=== PATIENT | male | born 1950 | race Two or more races ===

== ENCOUNTER 2016-09-04 07:35 | Day surgery (SDC) | payer BC ==
[2016-09-04] VITALS (13 sets, daily range): BP systolic 111–149; BP diastolic 49–74; PULSE 47–78; RESP 16–24; Ht 175.3 cm; Wt 71.3 kg
[~2016-09-04] VITALS: Ht 175.3 cm; Wt 71.3 kg
[~2016-09-04 07:35] MED LIST: ACETAMINOPHEN 1000 MG/100 ML IVPB ONE; CEFAZOLIN 1 GM INJ ONE; CEFAZOLIN 1 GM/50 ML (PMX) 50 ML IVPB SCH
--- NOTE | 2016-09-04 09:19 | RADRPT ---
PROCEDURE: XR Chest. CLINICAL INDICATION: preop TECHNIQUE: Single frontal view of the chest was obtained COMPARISON: None FINDINGS: The heart and mediastinum are within normal limits. The lungs are clear. There is no pleural effusion or pneumothorax. RPTAT: AA IMPRESSION: No acute disease. .James Ortiz MD, Date Time Electronically viewed and signed by .James Ortiz MD, on 09/04/2016 09:19 .S/
[2016-09-04] MEDS ORDERED: LIDOCAINE 2% (SDV) 5 ML INJ ONE (09:53)
[2016-09-04] MEDS ORDERED: ROCURONIUM 50 MG INJ ONE (09:53)
[2016-09-04] MEDS ORDERED: PROPOFOL 20 ML ONE (09:53)
[2016-09-04] MEDS ORDERED: hydrALAzine 20 MG INJ IV PRN (10:00)
[2016-09-04] MEDS ORDERED: LABETALOL HCL 20MG INJ IV PRN (10:00)
[2016-09-04] MEDS ORDERED: HYDROmorphONE (0.2 MG/ML) 10ML SYG IV PRN ×3 (10:00)
[2016-09-04] MEDS ORDERED: OXYCODONE/ACETAMINOPHEN (5/325) TAB PO PRN (10:00)
[2016-09-04] MEDS ORDERED: MEPERIDINE 25 MG INJ IV PRN (10:00)
[2016-09-04] MEDS ORDERED: ONDANSETRON 4 MG INJ IV PRN (10:00)
[2016-09-04] MEDS ORDERED: EPHEDrine SULFATE 50 MG/5 ML SYG IV PRN (10:00)
[2016-09-04] MEDS ORDERED: FENTAnyl 50 MCG/ML VIAL IV PRN ×3 (10:00)
--- NOTE | 2016-09-04 11:03 | HP ---
DATE OF ADMISSION: 09/04/2016 CHIEF COMPLAINT: Gross hematuria. HISTORY OF PRESENT ILLNESS: This is a 66-year-old male with history of bladder cancer. He was diag nosed in 2012 in [place]. The patient underwent transurethral resection of bladder tumor, followed by chemotherapy and radiation to his bladder. He apparently had some pulmonary nodules; however, the n odules have remained stable. Patient has been off of chemotherapy for many years. Initial diagnosi s of bladder cancer was in 2005. At that time, he had high grade bladder cancer. He has had multip le prior transurethral resection of bladder tumors. In 2012, the patient had undergone another TURB T and chemoradiation. The patient also has history of urethral stricture or prostate fossa stricture. He has had prior tr eatments for this problem. However, he continues to have slow stream, intermittency, frequency. Th e patient also has urgency incontinence. Patient reports he has had intermittent bouts of gross hematuria. Although his hematuria was worse about 3 months ago, he does have continued intermittent hematuria and passage of clots. He reports overall, this has improved over time. PAST MEDICAL HISTORY: No hypertension, no diabetes. PAST SURGICAL HISTORY: TURBT (multiple), mouth surgery. ALLERGIES: NO KNOWN DRUG ALLERGIES. SOCIAL HISTORY: No smoke. Occasional alcohol. Patient stopped smoking in 2004. FAMILY HISTORY: Brother with pancreatic cancer. REVIEW OF SYSTEMS: CONSTITUTIONAL: No fevers, no chills, no change in appetite, weight gain or weight loss. HEENT: No loss of hearing, no ear/sinus pain. No rhinorrhea, nosebleed or sore throat. CARDIOVASCULAR: No chest pain, no shortness of breath or heart palpitations. RESPIRATORY: No cough. No phlegm production, wheezing or hemoptysis. GASTROINTESTINAL: No abdominal pain, no cramping. No nausea. MUSCULOSKELETAL: No bone pain. No change in strength or joint pain. INTEGUMENTARY: No skin rash or lesions. NEUROLOGICAL: No dizziness, no headaches, no numbness. PSYCHIATRIC: The patient feels anxious over his situation. HEMATOLOGIC/LYMPHATIC: No known bleeding problems other than his hematuria. No lymph node enlargem ent. PHYSICAL EXAMINATION: CONSTITUTIONAL: The patient appears to be in no acute distress. GASTROINTESTINAL: Abdomen is soft, normal bowel sounds, nondistended, nontender. Hernia examinatio n, none noted. Liver and spleen normal. GENITOURINARY: Scrotum no lesions, no edema, no erythema, mass, rashes, or cysts. Epididymis symme tric, normal texture, nontender. Urethral meatus normal in size and location. Testes descended odalys aterally. NECK: Normal appearing, symmetric, normal tracheal position. Thyroid no enlargement. EXTREMITIES: No edema. ASSESSMENT: 1. Bladder cancer, status post multiple previous resections. 2. Gross hematuria. 3. The patient had undergone a previous cystoscopy in my office but due to increased debris and hemal t within the bladder, it was not possible to visualize the mucosa. He was found to have a fibrotic prostate mucosa. PLAN: Cystoscopy, evacuation of blood clots and transurethral resection of bladder tumor and possib le bladder biopsy. This procedure has been explained to the patient in detail. Risks and benefits have been discussed. His other options have also been discussed. He understands the risks include, but are not limited to infection, bleeding, damage to adjacent structures, heart problems, lung pro blems, possibility of need for further surgery, DVT, PE, TX, CVA, nonresolution of symptoms, recurre nce of symptoms, need for other treatments, need for other surgeries, recurrence of hematuria, inabi lity to remove all the tumor in 1 setting, injury to the ureters, worsening of urethral stricture, b ladder perforation, worsening incontinence. All of his questions have been answered, no guarantees given. The patient would like to proceed. Dictated By: ABRIL NATH MD, SR/NTS Conf#: [id number] DID#: [id number]
--- NOTE | 2016-09-04 11:20 | OPR ---
Date/Time of Note Date/Time of Note DATE: 09/04/16 TIME: 11:18 Operative Report Procedure Date: Sep 04, 2016 Preoperative Diagnosis Hx bladder ca hematuria Postoperative Diagnosis neoplasm uncertain behavior bladder hx bladder ca urethral stricture BN contracture bladder fibrosis radiation cystitis Operation Performed TURBT Surgeon: ABRIL NATH Anesthesia: general Estimated Blood Loss: minimal Specimens bladder tumor, bladder biopsy Tubes/Drains 18 fr murphy Complications: None Pt Condition Post Procedure: stable Disposition: PACU ABRIL NATH Sep 04, 2016 11:20
--- NOTE | 2016-09-04 11:23 | PDOCDIS ---
Discharge Instructions CONDITION Patient Condition: Good HOME CARE INSTRUCTIONS: Diet Instructions: Regular ACTIVITY: Activity Restrictions: Slowly Increase Activity Avoid heavy lifting Bathing Restrictions: Shower FOLLOW UP/APPOINTMENTS Appointments wednesday09/07/16 Dr Bourgeois's office for catheter removal OTHER ORDERS: Other Orders: keep murphy catheter to gravity SCHOOL/WORK RELEASE May return to School/Work on: Sep 09, 2016 ABRIL BOURGEOIS Sep 04, 2016 11:23
--- NOTE | 2016-09-04 11:57 | OPR ---
DATE OF OPERATION: 09/04/2016 PREOPERATIVE DIAGNOSIS: Bladder cancer. POSTOPERATIVE DIAGNOSES: 1. History of bladder cancer. 2. Neoplasm of uncertain behavior of bladder. 3. Hematuria. 4. Urethral stricture. 5. Prostate stricture. 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 PROCEDURE PERFORMED: 1. Cystoscopy, urethral dilation. 2. Transurethral resection of bladder tumor (cold cup resection). SURGEON: Abril Bourgeois MD INDICATIONS FOR PROCEDURE: This patient has a history of bladder cancer. He has undergone multiple transurethral resections of bladder tumors. He has also undergone radiation and chemotherapy. He is known to have urethral stricture. He has had intermittent gross hematuria. He underwent an atte mpt at a surveillance cystoscopy in my office; however, due to increased debris and clots in the claudia dder it was not possible to visualize the bladder. He is now scheduled to undergo the procedure und er anesthesia. Risks and benefits have been discussed with the patient. All of his questions have been answered. He would like to proceed. FINDINGS: The entire length of urethra was fibrotic, narrowed and scarred. Prostate fossa was also fibrotic and scarred. Prostate was fixed against the pelvis. It was not possible to place a scope larger than 22-Zimbabwean. The 22-Zimbabwean scope was placed with increased resistance. Within the bladd er, there was an area of papillary fronds along the right trigone extending to the left trigone. Mu ltiple areas of vascular changes within the bladder consistent with radiation changes were seen. No distinct patches of erythema were seen. The ureteral orifices were orthotopic. Blood clots within the bladder were also identified which were irrigated. The papillary fronds were removed using the cold cup biopsy forceps. PROCEDURE IN DETAIL: The patient was brought to the operating room, underwent general laryngeal mas k anesthesia. He was placed in a semi-lithotomy position. Abdomen, perineum and genitalia were pre pped and draped in usual sterile fashion. Initially, an attempt was made to place a 26-Zimbabwean resec toscope sheath under the visualizing obturator; however, only the distal portion of the urethra acc ommodated the scope. This was then removed. The urethra was calibrated to 22-Zimbabwean using van Bure n sounds, however, it was very evident that the sounds would not pass beyond the prostatic fossa int o the bladder. The sounds were not forced into the bladder as this would have caused increased blee ding and injury to the prostate, possibly causing a false passage. A 22-Zimbabwean cystoscope was then placed under direct vision. The entire length of the urethra was fi brosed, narrowed, thin and small in caliber. The scope was advanced into the prostatic fossa. The fossa was fixed against the pelvis. Prostate was not mobile. The prostatic fossa was very narrow. The scope was gently advanced through this narrowed prostatic fossa. The bladder neck was also yoanna row and fixed against the pelvis. The scope was then brought into the bladder; however, the scope e ssentially became fixed in place due to the severe rigidity of the bladder floor, the bladder neck a nd the prostate fossa. It was deemed that it would not be possible to place even a 24-Zimbabwean resect oscope. Therefore, the procedure was done using the cystoscope. Cystoscopy was performed. Bladder was carefully examined. Papillary fronds were identified along t he trigone of the bladder. These appeared to be superficial and were not on a single pedicle. The ureteral orifices were orthotopic. The entire bladder mucosa was fibrosed. There were multiple tel angiectatic changes to the vascular mucosa. The rigid biopsy forceps was then used to resect the papillary fronds along the trigone of the bladd er, care was taken not to injure the ureteral orifices. These tissues were sent to pathology. The Bugbee electrode was used to obtain hemostasis from the area of resection. Deeper into the bladder along the right posterior bladder wall, a patch of erythema along the telangiectatic vessels was janiya ntified. This was also removed using the rigid biopsy forceps. This area was also cauterized using the Bugbee electrode. Bladder was carefully examined. No other tumors were identified. At the ti me of placement of the rigid scope, some of the bladder neck tissue had scraped off and had drained into the drainage area. These were also collected and sent to pathology as bladder neck tissue. Th e area of the bladder neck was also cauterized to obtain hemostasis. Blood clots had also been irri gated out of the bladder. At this point, the cystoscope was brought through the scarred prostatic fossa and out of the urethra , taking care not to injure the urethra. Next, an 18-Zimbabwean catheter was placed into the bladder. Bladder was hand irrigated. It irrigated easily indicating that the catheter had entered the bladde r. Balloon was inflated to 10 mL. Catheter was placed down to gravity. The catheter was reirrigat ed. The irrigant was clear to light pink. The patient was placed back in a supine position. He wa s awakened, extubated, and taken to recovery room. POSTOPERATIVE CONDITION: Stable. COMPLICATIONS: None. BLOOD LOSS: Minimal. BLOOD ADMINISTERED: None. SPECIMENS SENT TO LAB: Bladder tumor resection from trigone, posterior wall bladder biopsy, bladder neck tissue. Dictated By: ABRIL BOURGEOIS MD SR/NTS Conf#: [id number] DID#: [id number]
--- NOTE | 2016-09-04 12:50 | DS ---
DATE OF ADMISSION: 09/04/2016 DATE OF DISCHARGE: 09/04/2016 ADMITTING DIAGNOSIS: Bladder cancer. DISCHARGE DIAGNOSES: 1. History of bladder cancer. 2. Neoplasm of uncertain behavior of bladder. 3. Urethral stricture, 4. Prostate fossa stricture. 5. Bladder neck contracture. 6. Radiation cystitis. 7. Bladder fibrosis. HOSPITAL COURSE: The patient admitted to the hospital and underwent transurethral resection of blad [place] tumor. He tolerated procedure well. He was transferred to recovery room. Once patient was sta ble, tolerating his diet, remaining afebrile and pain was well controlled, he was discharged home. DISCHARGE INSTRUCTIONS: Activity as tolerated. No heavy lifting. Patient may shower. Follow up i n 3 days for catheter removal. MEDICATIONS: 1. [place]. 2. Colace. 3. Cipro. Dictated By: ABRIL NATH MD SR/NTS Conf#: [id number] DID#: [id number]
--- NOTE | 2016-09-04 13:09 | OPPN ---
Date/Time of Note Date/Time of Note DATE: 09/04/16 TIME: 13:09 Post-Anesthesia Notes Post-Anesthesia Note Activity: WNL Respiratory function: WNL Cardiovascular function: WNL Mental status: Baseline Pain reasonably controlled: Yes Hydration appropriate: Yes Nausea/Vomiting absent: Yes MINNA MARINELLI Sep 04, 2016 13:09
== END 2016-09-04 13:25 | disposition home or self-care (01) ==
LOC: SDS 07:35
PROVIDERS: ATTEND Surgery Surgical Oncology
DX: C67.4 Malignant neoplasm of posterior wall of bladder (principal); N13.5 Crossing vessel and stricture of ureter without hydronephrosis; N42.89 Other specified disorders of prostate
CPT/HCPCS: 52235; 71010; 88305; J0131; J0690; J3010; Z7512; Z7610

== ENCOUNTER 2016-12-23 05:42 | Inpatient (IN) | END 2017-03-15 17:15 | disposition home health service (06) | DRG 653 | DX: C67.9 Malignant neoplasm of bladder, unspecified (principal); K63.1 Perforation of intestine (nontraumatic); N17.0 Acute kidney failure with tubular necrosis; K65.1 Peritoneal abscess; E43 Unspecified severe protein-calorie malnutrition; B37.7 Candidal sepsis; N39.0 Urinary tract infection, site not specified; N30.40 Irradiation cystitis without hematuria; E87.1 Hypo-osmolality and hyponatremia; K56.0 Paralytic ileus; B37.49 Other urogenital candidiasis; R64 Cachexia; T81.4XXA Infection following a procedure, initial encounter; D62 Acute posthemorrhagic anemia; R15.9 Full incontinence of feces; R32 Unspecified urinary incontinence; N35.8 Other urethral stricture; E83.51 Hypocalcemia; K60.4 Rectal fistula; K66.0 Peritoneal adhesions (postprocedural) (postinfection); K62.7 Radiation proctitis; E87.5 Hyperkalemia; B96.20 Unspecified Escherichia coli [E. coli] as the cause of diseases classified elsewhere; D63.0 Anemia in neoplastic disease; G89.4 Chronic pain syndrome; Y83.8 Other surgical procedures as the cause of abnormal reaction of the patient, or of later complication, without mention of misadventure at the time of the procedure; Y84.2 Radiological procedure and radiotherapy as the cause of abnormal reaction of the patient, or of later complication, without mention of misadventure at the time of the procedure; Y92.238 Other place in hospital as the place of occurrence of the external cause; Y92.89 Other specified places as the place of occurrence of the external cause; Z68.21 Body mass index [BMI] 21.0-21.9, adult ==

== ENCOUNTER 2017-03-20 20:57 | Emergency (ER) | payer BC ==
[~2017-03-20] VITALS: Ht 167.6 cm; Wt 55.0 kg
[~2017-03-20 20:57] MED LIST changes: -ACETAMINOPHEN 1000 MG/100 ML IVPB ONE; -CEFAZOLIN 1 GM INJ ONE; -CEFAZOLIN 1 GM/50 ML (PMX) 50 ML IVPB SCH; +DOCU-144 PO; +OXYC-279 PO
[2017-03-20 21:04] VITALS: Ht 167.6 cm; Wt 55.0 kg
[2017-03-20 22:00] VITALS: TEMP 98.5
[2017-03-20] MEDS ORDERED: FAMOTIDINE 20 MG INJ IV STA (22:18)
[2017-03-20] MEDS ORDERED: ONDANSETRON 4 MG INJ IV STA (22:18)
[2017-03-20] MEDS ORDERED: SOD CHLORIDE 0.9% 1,000 ML IV STA (22:18)
[2017-03-20 23:45] LABS: BASOPHILS % 0.2 % (0.0-2.0); EOSINOPHILS % 0.3 % (0.0-7.0); HEMATOCRIT 32.8 % (42.0-52.0); HEMOGLOBIN 10.4 g/dl (14.0-18.0); LYMPHOCYTES # 1.1 10^3/ul (0.8-2.9); LYMPHOCYTES % 11.1 % (15.0-51.0); MEAN CORPUSCULAR HEMOGLOBIN 28.4 pg (29.0-33.0); MEAN CORPUSCULAR HGB CONC 31.7 g/dl (32.0-37.0); MEAN CORPUSCULAR VOLUME 89.6 fl (82.0-101.0); MEAN PLATELET VOLUME 9.7 fl (7.4-10.4); MONOCYTE # 0.8 10^3/ul (0.3-0.9); MONOCYTES % 7.6 % (0.0-11.0); NEUTROPHILS % 80.4 % (39.0-77.0); PLATELET COUNT 259 10^3/UL (140-415); RED BLOOD COUNT 3.66 10^6/ul (4.70-6.10)
[2017-03-21 00:10] LABS: ALBUMIN 3.8 g/dl (3.3-4.9); ALBUMIN/GLOBULIN RATIO 0.8; CALCIUM 9.6 mg/dl (8.4-10.2); CREATININE 1.34 mg/dl (0.61-1.24); POTASSIUM 4.3 mmol/L (3.5-5.1); TOTAL PROTEIN 8.5 g/dl (6.1-8.1)
--- NOTE | 2017-03-21 00:30 | ERD ---
ER Documentation Chief Complaint Date/Time DATE: 03/21/17 TIME: 00:27 Chief Complaint just dcd 03/15/17/ c/o vomiting, hx bladder CA pt w/ colostomy, urostomy HPI This is a 66-year-old male who presents to the emergency room for evaluation of a colostomy bag change, and mild nausea. The patient does have a history of bladder cancer, colon cancer with colon resection and ileostomy and urethrostomy in place. According to his daughter the home health nurse was not able to give colostomy bags. She states that he was nauseous at home and states that he has recently been discharged from the hospital less than a week ago. The patient denies any active pain at this time and states he wants his bags changed. ROS All systems reviewed and are negative except as per history of present illness. Medications Home Meds Active Scripts Docusate Sodium* (Colace*) 100 Mg Capsule, 100 MG PO BID, #30 CAP Prov:BRENDA PETTIT [employer] 03/12/17 Oxycodone HCl/Acetaminophen (Percocet 5-325 mg Tablet) 1 Each Tablet, 1 EACH PO Q4H for PAIN, #30 TAB Prov:BRENDA PETTIT [employer] 03/12/17 Allergies Allergies: Coded Allergies: No Known Allergies (Unverified Allergy, Unknown, 09/04/16) PMhx/Soc History of Surgery: Yes (urostomy, ileostomy, colostomy 2017) Anesthesia Reaction: No Hx Neurological Disorder: No Hx Respiratory Disorders: No Hx Cardiac Disorders: No Hx Psychiatric Problems: No Hx Miscellaneous Medical Probl: Yes (pls see EMR) Hx Alcohol Use: Yes (RARE) Hx Substance Use: No Hx Tobacco Use: No (40 YEARS AGO) Smoking Status: Former smoker Physical Exam Vitals Vital Signs Date Time Temp Pulse Resp B/P Pulse Ox O2 Delivery O2 Flow Rate FiO2 03/20/17 21:04 98.8 101 20 110/64 99 Physical Exam INITIAL VITAL SIGNS: Reviewed by me GENERAL: The patient is cachectic appearing, no acute distress HEENT: Dry mucous membranes, pupils equal, round, and reactive to light. EOMI. There is no scleral icterus. NECK: C-spine is soft and supple, there is no meningismus. There is no cervical lymphadenopathy. LUNGS: Clear to auscultation bilaterally. There are no rales, wheezes or rhonchi. HEART: Regular rate and rhythm, no murmurs, clicks, rubs or gallops. ABDOMEN: Ileostomy and ureter urostomy tubes in place, adequate output soft, non -tender, non-distended. There are bowel sounds in all four quadrants. No rebound or guarding. EXTREMITIES: There is no peripheral cyanosis or edema. No focal swelling or erythema. NEUROLOGICAL: The patient moves all four extremities with 5/5 strength. Cranial nerves II - XII are intact. Normal gait. Alert and oriented SKIN: There is no apparent rash or petechiae. HEME/LYMPHATIC: There is no evidence of excessive bruising or lymphedema. PSYCHIATRIC: The patient does not appear anxious or depressed. Result Diagram: 03/20/17231003/20/172310 Results 24 hrs Laboratory Tests Test 03/20/17 23:11 White Blood Count 10.010^3/ul Red Blood Count 3.6610^6/ul Hemoglobin 10.4g/dl Hematocrit 32.8% Mean Corpuscular Volume 89.6fl Mean Corpuscular Hemoglobin 28.4pg Mean Corpuscular Hemoglobin Concent 31.7g/dl Red Cell Distribution Width 16.0% Platelet Count 73941^3/UL Mean Platelet Volume 9.7fl Neutrophils % 80.4% Lymphocytes % 11.1% Monocytes % 7.6% Eosinophils % 0.3% Basophils % 0.2% Nucleated Red Blood Cells % 0.0/100WBC Neutrophils # 8.010^3/ul Lymphocytes # 1.110^3/ul Monocytes # 0.810^3/ul Eosinophils # 0.010^3/ul Basophils # 0.010^3/ul Nucleated Red Blood Cells # 0.010^3/ul Sodium Level 140mmol/L Potassium Level 4.3mmol/L Chloride Level 102mmol/L Carbon Dioxide Level 27mmol/L Anion Gap 15 Blood Urea Nitrogen 56mg/dl Creatinine 1.34mg/dl Glucose Level 147mg/dl Calcium Level 9.6mg/dl Total Bilirubin 0.0mg/dl Direct Bilirubin 0.00mg/dl Indirect Bilirubin 0.0mg/dl Aspartate Amino Transf (AST/SGOT) 100IU/L Alanine Aminotransferase (ALT/SGPT) 139IU/L Alkaline Phosphatase 419IU/L Total Protein 8.5g/dl Albumin 3.8g/dl Globulin 4.70g/dl Albumin/Globulin Ratio 0.80 Current Medications Medications (Trade) Dose Ordered Sig/Terrie Route PRN Reason Start Time Stop Time Status Last Admin Dose Admin Sodium Chloride (NS) 1,000 ml @ 1,000 mls/hr Q1H STAT IV 03/20/17 22:18 03/20/17 23:17 DC 03/20/17 22:40 Ondansetron HCl (Zofran Inj) 4 mg ONCE STAT IV 03/20/17 22:18 03/20/17 22:19 DC 03/20/17 22:40 Famotidine (Pepcid Iv) 20 mg ONCE STAT IV 03/20/17 22:18 03/20/17 22:19 DC 03/20/17 22:40 Procedures/MDM This 66-year-old male presents to the emergency room for evaluation of colostomy and ileostomy bag replacements. He was having issues getting this at home through his home health nurse. This patient was also complaining of mild nausea. Lab work was obtained which does show mild prerenal azotemia. He was given 1 L fluids, Zofran and Pepcid. The ileostomy bag was changed. When I reevaluated him he was sitting in bed comfortable and states that he would like to go home at this time. The patient's family members are at bedside and agree with the plan of care discharge at this time. The patient's daughter states that she will follow with home health nurse on March 22 for reevaluation of colostomy bag Departure Diagnosis: Primary Impression: Mild dehydration Additional Impression: Neoplasm of uncertain behavior of bladder Condition: Stable AIDA CARRANZA DO Mar 21, 2017 00:30
[2017-03-21] MEDS ORDERED: ONDA4TAB8 PO (01:23)
[2017-03-21 01:30] VITALS: BP 123/79; PULSE 79; RESP 20
== END 2017-03-21 01:45 | disposition home or self-care (01) ==
LOC: E/R 20:57
DX: E86.0 Dehydration (principal); R40.2252 Coma scale, best verbal response, oriented, at arrival to emergency department; D41.4 Neoplasm of uncertain behavior of bladder; R40.2142 Coma scale, eyes open, spontaneous, at arrival to emergency department; R40.2362 Coma scale, best motor response, obeys commands, at arrival to emergency department; Z87.891 Personal history of nicotine dependence
CPT/HCPCS: 80053; 85025; 96374; 96375; J2405; J7030; Z7502; Z7610

== ENCOUNTER 2017-03-30 01:29 | Inpatient (IN) | payer BC ==
[~2017-03-30] VITALS: Ht 175.3 cm; Wt 57.4 kg
[~2017-03-30 01:29] MED LIST changes: +ONDA4TAB8 PO
[2017-03-30 02:54] VITALS: BP 112/59; RESP 19
[2017-03-30] MEDS: DEXTROSE 5%-0.45% NACL 1,000 ML IV SCH ×3 (03:37→17:59)
[2017-03-30 04:02] VITALS: BP 112/59; PULSE 81; RESP 18
[2017-03-30 05:58] LABS: BASOPHILS % 0.3 % (0.0-2.0); EOSINOPHILS # 0.1 10^3/ul (0.0-0.5); EOSINOPHILS % 1.3 % (0.0-7.0); HEMATOCRIT 28.7 % (42.0-52.0); HEMOGLOBIN 8.8 g/dl (14.0-18.0); LYMPHOCYTES # 1.6 10^3/ul (0.8-2.9); LYMPHOCYTES % 14.4 % (15.0-51.0); MEAN CORPUSCULAR HEMOGLOBIN 27.4 pg (29.0-33.0); MEAN CORPUSCULAR HGB CONC 30.7 g/dl (32.0-37.0); MEAN CORPUSCULAR VOLUME 89.4 fl (82.0-101.0); MEAN PLATELET VOLUME 9.9 fl (7.4-10.4); MONOCYTE # 0.9 10^3/ul (0.3-0.9); MONOCYTES % 7.7 % (0.0-11.0); NEUTROPHIL # 8.3 10^3/ul (1.6-7.5); NEUTROPHILS % 75.2 % (39.0-77.0); PLATELET COUNT 276 10^3/UL (140-415); RED BLOOD COUNT 3.21 10^6/ul (4.70-6.10); RED CELL DISTRIBUTION WIDTH 15.6 % (11.5-14.5)
[2017-03-30 06:13] LABS: ALBUMIN 3.5 g/dl (3.3-4.9); ALBUMIN/GLOBULIN RATIO 0.87; CALCIUM 9.1 mg/dl (8.4-10.2); CREATININE 1.7 mg/dl (0.61-1.24); MAGNESIUM 2.2 mg/dl (1.7-2.5); PHOSPHORUS 3.5 mg/dl (2.5-4.9); POTASSIUM 3.8 mmol/L (3.5-5.1); TOTAL PROTEIN 7.5 g/dl (6.1-8.1)
[2017-03-30 08:21] VITALS: BP 114/64; RESP 18
[2017-03-30 08:27] VITALS: Ht 175.3 cm; Wt 57.4 kg
[2017-03-30] MEDS: MEROPENEM 500MG/50 ML (PMX) 50 ML IVPB SCH ×3 (08:29→22:15)
[2017-03-30] MEDS: HEPARIN 5,000 UNIT/0.5 ML VIAL SC SCH (08:39)
--- NOTE | 2017-03-30 09:03 | HP ---
Date/Time of Note Date/Time of Note DATE: 03/30/17 TIME: 08:40 Assessment/Plan VTE Prophylaxis VTE Prophylaxis Intervention: SCD's Lines/Catheters IV C[facility]ter Type [facility]from [facility]): PICC Line Central line still needed: Yes Urinary Cath still in place: No Assessment/Plan Assessment/Plan ASSESSMENT 66-year-old male with a history of bladder cancer s/p TURBT, chemotherapy/ radiation, urethral damage, chemo/radiation induced urinary and fecal incontinence, perforated viscus s/p repair and pelvic abscess s/p drainage, cystoprostatectomy with urinary diversion, ileal conduit, colonic diversion for fistula transferred from an outside hospital for generalized weakness and weight loss found to have a UTI and a worsening kidney function. PLAN Patient with a history of ESBL UTI and as such that he will be placed on meropenem. Will place a dietary consult. Patient was discharged to recently with home health for TPN. Will hydrate patient. Continue supportive care. If no improvement in kidney function, will place a nephrology consult and obtain a renal ultrasound. HPI/ROS Admit Date/Time Admit Date/Time Mar 30, 2017 at 02:24 Hx of Present Illness This is a 66-year-old male with a history of bladder cancer s/p TURBT, chemotherapy/radiation, urethral damage, chemo/radiation induced urinary and fecal incontinence. Patient was admitted here recently and was discharged 10 days ago after long hospitalization. He underwent cystoprostatectomy with urinary diversion, ileal conduit, colonic diversion for fistula. He was also had a perforated viscus s/p repair and pelvic abscess s/p drainage. He had repair during recent hospitalization, he was treated for ESBL UTI. Patient had ongoing hospitalization but eventually he was discharged with home health with TPN for nutrition. Patient was taken to [facility] for generalized weakness and weight loss. He has very mild abdominal discomfort otherwise denied significant abdominal pain. At the outside, hospital he was found to have a creatinine of 1.8 from 1.34 at the time of discharge 10 days ago. Patient was transferred to [facility] for insurance reason. PMH/Family/Social Past Surgical History Past Surgical Hx: other Social History Smoking Status: Never smoker Exam/Review of Systems Vital Signs Vitals Vital Signs Date Time Temp Pulse Resp B/P Pulse Ox O2 Delivery O2 Flow Rate FiO2 03/30/17 08:21 97.4 83 18 114/64 100 03/30/17 04:02 Room Air Intake and Output 03/29/17 03/29/17 03/30/17 15:00 23:00 07:00 Intake Total 590 ml Output Total 900 ml Balance -310 ml Exam Constitutional: other (Patient appears weak. No acute distress. He is cachectic) Head: atraumatic, normocephalic Eyes: EOMI, PERRL Respiratory: clear to auscultation, normal air movement Cardiovascular: nl pulses, regular rate and rhythm Gastrointestinal: other (Scaphoid abdomen. Urostomy, colostomy and ileal conduit) Extremities: normal pulses Labs Result Diagram: 03/30/1745103/30/17451 Medications Medications Current Medications Ondansetron HCl 4 mg 4 mg Q6H PRN IV NAUSEA AND/OR VOMITING; Start 03/30/17 at 03:30 Dextrose/Sodium Chloride (D5-1/2ns) 1,000 ml @ 75 mls/hr [id number] IV Last administered on 03/30/17 03:37; Admin Dose 75 MLS/HR; Start 03/30/17 at 03:30 Morphine Sulfate (morphine) 2 mg Q4H PRN IV PAIN; Start 03/30/17 at 03:30 Heparin Sodium (Porcine) 5000 unit 5,000 unit DAILY SC Last administered on 08:39; Admin Dose 5,000 UNIT; Start 03/30/17 at 09:00 Meropenem/Sodium Chloride (Merrem 500mg/50 ml(Pmx)) 50 ml @ 200 mls/hr Q8 IVPB Last administered on 03/30/17 08:29; Admin Dose 200 MLS/HR; Start 03/30/17 at 06:00 Oxycodone/ Acetaminophen (Percocet (5/ 325)) 1 tab Q4H PRN PO PAIN; Start at 06:00 ISIDORO LÓPEZ MD Mar 30, 2017 08:51
[2017-03-30 13:09] LABS: ADD UMIC YES; UR ASCORBIC ACID NEGATIVE (NEGATIVE); UR BACTERIA FEW /HPF (NONE SEEN); UR BILIRUBIN (Dip) NEGATIVE (NEGATIVE); UR BLOOD (Dip) 2+ mg/dL (NEGATIVE); UR CLARITY TURBID (CLEAR); UR COLOR AMBER (YELLOW); UR GLUCOSE (Dip) NEGATIVE (NEGATIVE); UR KETONES (Dip) NEGATIVE (NEGATIVE); UR LEUKOCYTE ESTERASE (Dip) 3+ Leu/ul (NEGATIVE); UR NITRITE (Dip) POSITIVE (NEGATIVE); UR RBC 146 /HPF (0-5); UR TOTAL PROTEIN (Dip) 2+ mg/dl (NEGATIVE); UR UROBILINOGEN (Dip) NEGATIVE (NEGATIVE)
[2017-03-30 14:49] VITALS: BP 108/59; RESP 18
--- NOTE | 2017-03-30 17:33 | CONS ---
Date/Time of Note Date/Time of Note DATE: 03/30/17 TIME: 17:26 Assessment/Plan Assessment/Plan Additional Assessment/Plan Assessment: 1. acute kidney injury Non oliguric 2. H/o ESBL UTI 3.history of bladder cancer s/p TURBT, chemotherapy/radiation, urethral damage, chemo/radiation induced urinary and fecal incontinence. He underwent cystoprostatectomy with urinary diversion, ileal conduit, colonic diversion for fistula on last admission Plan: pt had a full CKD work up done on last admission, no need to repeat it Continue IV Abx meropenem, renally dose it IVF D51/2NS at 75 cc/hr Expecting Creatinien to improve with IVF hydation and IV abx treatment Thanks for consultation, we will continue to follow up Consultation Date/Type/Reason Admit Date/Time Mar 30, 2017 at 02:24 Date of Consultation: Mar 30, 2017 Type of Consultation: NEPHROLOGY Reason for Consultation acute kidney injury Referring Provider: MAIKEL ARELLANO of Present Illness 66-year-old male with a history of bladder cancer s/p TURBT, chemotherapy/ radiation, urethral damage, chemo/radiation induced urinary and fecal incontinence. Patient was admitted [facility] recently and was discharged 10 days ago after long hospitalization. He underwent cystoprostatectomy with urinary diversion, ileal conduit, colonic diversion for fistula. He was also had a perforated viscus s/p repair and pelvic abscess s/p drainage. He had repair during recent hospitalization, he was treated for ESBL UTI. Patient was discharged with home health with TPN for nutrition. Patient was taken to [facility] for generalized weakness and weight loss. He has very mild abdominal discomfort otherwise denied significant abdominal pain. At the outside, hospital he was found to have a creatinine of 1.8 from 1.34 at the time of discharge 10 days ago. Patient was transferred to [facility] for insurance reason. Renal has been consulted for MANA Past Surgical History Past Surgical Hx: other Social History Smoking Status: Never smoker Exam/Review of Systems Vital Signs Vitals Vital Signs Date Time Temp Pulse Resp B/P Pulse Ox O2 Delivery O2 Flow Rate FiO2 03/30/17 14:49 99.0 85 18 108/59 100 03/30/17 04:02 Room Air Intake and Output 03/29/17 03/29/17 03/30/17 15:00 23:00 07:00 Intake Total 590 ml Output Total 900 ml Balance -310 ml Exam Constitutional: other (Patient appears weak. No acute distress. He is cachectic) Head: atraumatic, normocephalic Eyes: EOMI, PERRL Respiratory: clear to auscultation, normal air movement Cardiovascular: nl pulses, regular rate and rhythm Gastrointestinal: other (Scaphoid abdomen. Urostomy, colostomy and ileal conduit) Extremities: normal pulses Results Result Diagram: 03/30/17 0452 03/30/17 0452 Results 24 hrs Laboratory Tests Test 03/30/17 04:52 03/30/17 12:00 White Blood Count 11.0 H Red Blood Count 3.21 L Hemoglobin 8.8 L Hematocrit 28.7 L Mean Corpuscular Volume 89.4 Mean Corpuscular Hemoglobin 27.4 L Mean Corpuscular Hemoglobin Concent 30.7 L Red Cell Distribution Width 15.6 H Platelet Count 276 Mean Platelet Volume 9.9 Neutrophils % 75.2 Lymphocytes % 14.4 L Monocytes % 7.7 Eosinophils % 1.3 Basophils % 0.3 Nucleated Red Blood Cells % 0.0 Neutrophils # 8.3 H Lymphocytes # 1.6 Monocytes # 0.9 Eosinophils # 0.1 Basophils # 0.0 Nucleated Red Blood Cells # 0.0 Sodium Level 141 Potassium Level 3.8 Chloride Level 103 Carbon Dioxide Level 25 Anion Gap 17 H Blood Urea Nitrogen 64 H Creatinine 1.70 H Glucose Level 157 Calcium Level 9.1 Phosphorus Level 3.5 Magnesium Level 2.2 Total Bilirubin 0.0 L Direct Bilirubin 0.00 Indirect Bilirubin 0.0 Aspartate Amino Transf (AST/SGOT) 65 H Alanine Aminotransferase (ALT/SGPT) 160 H Alkaline Phosphatase 516 H Total Protein 7.5 Albumin 3.5 Globulin 4.00 H Albumin/Globulin Ratio 0.87 Urine Color BENNETT Urine Clarity TURBID A Urine pH 7.0 Urine Specific Malcolm 1.010 Urine Ketones NEGATIVE Urine Nitrite POSITIVE A Urine Bilirubin NEGATIVE Urine Urobilinogen NEGATIVE Urine Leukocyte Esterase 3+ H Urine Microscopic RBC 146 H Urine Microscopic WBC > 182 H Urine Bacteria FEW A Urine Hemoglobin 2+ H Urine Glucose NEGATIVE Urine Total Protein 2+ H Medications Medications Current Medications Ondansetron HCl 4 mg 4 mg Q6H PRN IV NAUSEA AND/OR VOMITING; Start 03/30/17 at 03:30 Dextrose/Sodium Chloride (D5-1/2ns) 1,000 ml @ 75 mls/hr [id number] IV Last administered on 03/30/17 03:37; Admin Dose 75 MLS/HR; Start 03/30/17 at 03:30 Morphine Sulfate (morphine) 2 mg Q4H PRN IV PAIN; Start 03/30/17 at 03:30 Heparin Sodium (Porcine) 5000 unit 5,000 unit DAILY SC Last administered on 08:39; Admin Dose 5,000 UNIT; Start 03/30/17 at 09:00 Meropenem/Sodium Chloride (Merrem 500mg/50 ml(Pmx)) 50 ml @ 200 mls/hr Q8 IVPB Last administered on 03/30/17 14:29; Admin Dose 200 MLS/HR; Start 03/30/17 at 06:00 Oxycodone/ Acetaminophen (Percocet (5/ 325)) 1 tab Q4H PRN PO PAIN; Start at 06:00 MARGOT WOMACK MD Mar 30, 2017 17:33
[2017-03-30 20:09] VITALS: BP 108/64; RESP 18
[2017-03-30] MEDS: morphine 2 MG INJ IV PRN (23:50)
[2017-03-31 01:22] VITALS: BP 94/54; RESP 18
[2017-03-31 05:36] LABS: BASOPHILS % 0.2 % (0.0-2.0); EOSINOPHILS # 0.2 10^3/ul (0.0-0.5); EOSINOPHILS % 1.7 % (0.0-7.0); HEMATOCRIT 31.4 % (42.0-52.0); LYMPHOCYTES # 2.1 10^3/ul (0.8-2.9); LYMPHOCYTES % 23.5 % (15.0-51.0); MEAN CORPUSCULAR HEMOGLOBIN 28.3 pg (29.0-33.0); MEAN CORPUSCULAR HGB CONC 31.8 g/dl (32.0-37.0); MEAN PLATELET VOLUME 9.8 fl (7.4-10.4); MONOCYTE # 0.6 10^3/ul (0.3-0.9); MONOCYTES % 6.5 % (0.0-11.0); NEUTROPHILS % 67.3 % (39.0-77.0); PLATELET COUNT 318 10^3/UL (140-415); RED BLOOD COUNT 3.53 10^6/ul (4.70-6.10); RED CELL DISTRIBUTION WIDTH 15.5 % (11.5-14.5); WHITE BLOOD COUNT 8.9 10^3/ul (4.8-10.8)
[2017-03-31] MEDS: MEROPENEM 500MG/50 ML (PMX) 50 ML IVPB SCH ×3 (05:40→21:02)
[2017-03-31] MEDS: DEXTROSE 5%-0.45% NACL 1,000 ML IV SCH (06:05)
[2017-03-31 06:30] LABS: CALCIUM 9.4 mg/dl (8.4-10.2); CREATININE 1.79 mg/dl (0.61-1.24); POTASSIUM 4.3 mmol/L (3.5-5.1)
[2017-03-31 07:31] VITALS: BP 96/61; RESP 18
[2017-03-31] MEDS: HEPARIN 5,000 UNIT/0.5 ML VIAL SC SCH (08:24)
[2017-03-31 11:25] LABS: ALBUMIN 3.3 g/dl (3.3-4.9); TOTAL PROTEIN 8.1 g/dl (6.1-8.1)
--- NOTE | 2017-03-31 13:14 | PN ---
Date/Time of Note Date/Time of Note DATE: 03/31/17 TIME: 13:08 Assessment/Plan VTE Prophylaxis VTE Prophylaxis Intervention: SCD's Lines/Catheters [facility] PICC Line Central line still needed: Yes Urinary Cath still in place: No Assessment/Plan Chief Complaint/Hosp Course Assessment and plan 1. Acute renal insufficiency. 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 Medications to be renally dosed. Monitor renal panel. 2. History of bladder cancer status post cystoprostatectomy and creation of ileal conduit with colonic diversion for fistula formation. Patient for outpatient management per urologist. 3. Recent history of polymicrobial UTI. Follow urine culture. Patient was placed on antibiotics on admission. 4. Severe protein calorie malnutrition. Will restart patient on TPN. Dietitian did follow the patient. 5. Transaminitis. Follow-up on abdominal imaging Disposition plan: Follow-up abdominal imaging. Physical therapy to follow. Monitor renal panel. Discussed plan of care with Dr. Tate Problems: Subjective 24 Hr Interval Summary Free Text/Dictation less Abdominal pain reported on abdomen. family at bedside. comfortable at present Exam/Review of Systems Vital Signs Vitals Vital Signs Date Time Temp Pulse Resp B/P Pulse Ox O2 Delivery O2 Flow Rate FiO2 03/31/17 07:31 98.2 86 18 96/61 100 03/30/17 04:02 Room Air Intake and Output 03/30/17 03/30/17 03/31/17 15:00 23:00 07:00 Intake Total 50 ml 2300 ml 1855 ml Output Total 2590 ml 2100 ml Balance 50 ml -290 ml -245 ml Exam Constitutional: alert, frail, oriented Psych: nl mood/affect Head: normocephalic Neck: non-tender, supple Respiratory: clear to auscultation Cardiovascular: other (regular rate ) Gastrointestinal: other (Minimally tender. 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, nl mental status, nl speech Results Result Diagram: 03/31/17 0509 03/31/17 0509 Results 24 hrs Laboratory Tests Test 03/31/17 05:09 White Blood Count 8.9 Red Blood Count 3.53 L Hemoglobin 10.0 L Hematocrit 31.4 L Mean Corpuscular Volume 89.0 Mean Corpuscular Hemoglobin 28.3 L Mean Corpuscular Hemoglobin Concent 31.8 L Red Cell Distribution Width 15.5 H Platelet Count 318 Mean Platelet Volume 9.8 Neutrophils % 67.3 Lymphocytes % 23.5 Monocytes % 6.5 Eosinophils % 1.7 Basophils % 0.2 Nucleated Red Blood Cells % 0.0 Neutrophils # 6.0 Lymphocytes # 2.1 Monocytes # 0.6 Eosinophils # 0.2 Basophils # 0.0 Nucleated Red Blood Cells # 0.0 Sodium Level 140 Potassium Level 4.3 Chloride Level 105 Carbon Dioxide Level 24 Anion Gap 15 Blood Urea Nitrogen 48 #H Creatinine 1.79 H Glucose Level 113 # Calcium Level 9.4 Total Bilirubin 0.0 L Direct Bilirubin 0.00 Indirect Bilirubin 0.0 Aspartate Amino Transf (AST/SGOT) 72 H Alanine Aminotransferase (ALT/SGPT) 145 H Alkaline Phosphatase 700 H Total Protein 8.1 Albumin 3.3 Medications Medications Current Medications Ondansetron HCl (Zofran Inj) 4 mg Q6H PRN IV NAUSEA AND/OR VOMITING; Start at 03:30 Morphine Sulfate (morphine) 2 mg Q4H PRN IV PAIN Last administered on 23:50; Admin Dose 2 MG; Start 03/30/17 at 03:30 Heparin Sodium (Porcine) 5000 unit 5,000 unit DAILY SC Last administered on 08:24; Admin Dose 5,000 UNIT; Start 03/30/17 at 09:00 Meropenem/Sodium Chloride (Merrem 500mg/50 ml(Pmx)) 50 ml @ 200 mls/hr Q8 IVPB Last administered on 03/31/17 05:40; Admin Dose 200 MLS/HR; Start 03/30/17 at 06:00 Oxycodone/ Acetaminophen (Percocet (5/ 325)) 1 tab Q4H PRN PO PAIN; Start at 06:00 Influenza Virus Vaccine 0.5 ml 0.5 ml ONCE ONCE IM* ; Start 04/01/17 at 09:00; Stop 04/01/17 at 09:01 Total Parenteral Nutrition (Tpn) 1,000 ml @ 40 mls/hr Q24H IV ; Start at 15:00 ALLISON HAYWARD Mar 31, 2017 13:14
[2017-03-31] MEDS ORDERED: BARIUM SULF 2% 450 ML BTL (BERRY SMOOTHIE) PO SCH (14:30)
[2017-03-31 15:00] VITALS: BP 101/67; RESP 18
[2017-03-31] MEDS: TPN 1,000 ML IV SCH ×2 (15:00→17:51)
--- NOTE | 2017-03-31 16:28 | CONS ---
Date/Time of Note Date/Time of Note DATE: 03/31/17 TIME: 16:26 Assessment/Plan Assessment/Plan Chief Complaint/Hosp Course 66-year-old male with a history of bladder cancer s/p TURBT, chemotherapy/ radiation, urethral damage, chemo/radiation induced urinary and fecal incontinence. Patient was admitted [facility] recently and was discharged 10 days ago after long hospitalization. He underwent cystoprostatectomy with urinary diversion, ileal conduit, colonic diversion for fistula. He was also had a perforated viscus s/p repair and pelvic abscess s/p drainage. He had repair during recent hospitalization, he was treated for ESBL UTI. Patient was discharged with home health with TPN for nutrition. Patient was taken to [facility] for generalized weakness and weight loss. He has very mild abdominal discomfort otherwise denied significant abdominal pain. At the outside, hospital he was found to have a creatinine of 1.8 from 1.34 at the time of discharge 10 days ago. Patient was transferred to [facility] for insurance reason. Renal has been consulted for MANA Problems: Additional Assessment/Plan 1. acute kidney injury Non oliguric 2. H/o ESBL UTI 3.history of bladder cancer s/p TURBT, chemotherapy/radiation, urethral damage, chemo/radiation induced urinary and fecal incontinence. He underwent cystoprostatectomy with urinary diversion, ileal conduit, colonic diversion for fistula on last admission Plan: pt had a full CKD work up done on last admission, no need to repeat it Continue IV Abx meropenem, renally dose it IVF D51/2NS at 75 cc/hr- Cr still 1.79-- Expecting Creatinien to improve with IVF hydation and IV abx treatment will continue to follow up Consultation Date/Type/Reason Admit Date/Time Mar 30, 2017 at 02:24 Initial Consult Date 03/30/17 Type of Consultation: NEPHROLOGY Referring Provider: MAIKEL ARELLANO 24 HR Interval Summary Free Text/Dictation Cr 1.79, BP stable, afebrile ,daughter requesting to start TPN Exam/Review of Systems Vital Signs Vitals Vital Signs Date Time Temp Pulse Resp B/P Pulse Ox O2 Delivery O2 Flow Rate FiO2 03/31/17 07:31 98.2 86 18 96/61 100 03/30/17 04:02 Room Air Intake and Output 03/30/17 03/30/17 03/31/17 15:00 23:00 07:00 Intake Total 50 ml 2300 ml 1855 ml Output Total 2590 ml 2100 ml Balance 50 ml -290 ml -245 ml Exam Constitutional: other (Patient appears weak. No acute distress. He is cachectic) Head: atraumatic, normocephalic Eyes: EOMI, PERRL Respiratory: clear to auscultation, normal air movement Cardiovascular: nl pulses, regular rate and rhythm Gastrointestinal: other (Scaphoid abdomen. Urostomy, colostomy and ileal conduit) Extremities: normal pulses Results Result Diagram: 03/31/17 0509 03/31/17 0509 Results 24 hrs Laboratory Tests Test 03/31/17 05:09 White Blood Count 8.9 Red Blood Count 3.53 L Hemoglobin 10.0 L Hematocrit 31.4 L Mean Corpuscular Volume 89.0 Mean Corpuscular Hemoglobin 28.3 L Mean Corpuscular Hemoglobin Concent 31.8 L Red Cell Distribution Width 15.5 H Platelet Count 318 Mean Platelet Volume 9.8 Neutrophils % 67.3 Lymphocytes % 23.5 Monocytes % 6.5 Eosinophils % 1.7 Basophils % 0.2 Nucleated Red Blood Cells % 0.0 Neutrophils # 6.0 Lymphocytes # 2.1 Monocytes # 0.6 Eosinophils # 0.2 Basophils # 0.0 Nucleated Red Blood Cells # 0.0 Sodium Level 140 Potassium Level 4.3 Chloride Level 105 Carbon Dioxide Level 24 Anion Gap 15 Blood Urea Nitrogen 48 #H Creatinine 1.79 H Glucose Level 113 # Calcium Level 9.4 Total Bilirubin 0.0 L Direct Bilirubin 0.00 Indirect Bilirubin 0.0 Aspartate Amino Transf (AST/SGOT) 72 H Alanine Aminotransferase (ALT/SGPT) 145 H Alkaline Phosphatase 700 H Total Protein 8.1 Albumin 3.3 Medications Medications Current Medications Ondansetron HCl (Zofran Inj) 4 mg Q6H PRN IV NAUSEA AND/OR VOMITING; Start at 03:30 Morphine Sulfate (morphine) 2 mg Q4H PRN IV PAIN Last administered on 23:50; Admin Dose 2 MG; Start 03/30/17 at 03:30 Heparin Sodium (Porcine) 5000 unit 5,000 unit DAILY SC Last administered on 08:24; Admin Dose 5,000 UNIT; Start 03/30/17 at 09:00 Meropenem/Sodium Chloride (Merrem 500mg/50 ml(Pmx)) 50 ml @ 200 mls/hr Q8 IVPB Last administered on 03/31/17t 13:13; Admin Dose 200 MLS/HR; Start 03/30/17 at 06:00 Oxycodone/ Acetaminophen (Percocet (5/ 325)) 1 tab Q4H PRN PO PAIN; Start at 06:00 Influenza Virus Vaccine 0.5 ml 0.5 ml ONCE ONCE IM* ; Start 04/01/17 at 09:00; Stop 04/01/17 at 09:01 Total Parenteral Nutrition (Tpn) 1,000 ml @ 40 mls/hr Q24H IV ; Start at 15:00 MARGOT WOMACK MD Mar 31, 2017 16:28
[2017-03-31 20:36] VITALS: BP 112/70; RESP 20
[2017-03-31] MEDS: morphine 2 MG INJ IV PRN (20:58)
[2017-03-31] MEDS ORDERED: GLUCOSE GEL 15 GRAM TUBE BUCCAL PRN (21:00)
[2017-03-31] MEDS ORDERED: GLUCOSE GEL 15 GRAM TUBE PO PRN ×2 (21:00)
[2017-03-31] MEDS ORDERED: DEXTROSE 50% 50 ML SYRINGE IV PRN ×2 (21:00)
[2017-03-31] MEDS ORDERED: GLUCAGON 1 MG INJ IM PRN (21:00)
--- NOTE | 2017-03-31 21:37 | RADRPT ---
PROCEDURE: CT Abdomen and Pelvis without contrast. CLINICAL INDICATION: Abdominal and pelvic pain. Fever. TECHNIQUE: CT scan of the abdomen and pelvis without contrast was performed. Coronal and sagittal reformatted images were obtained from the axial source images. Images were reviewed on a high-resolu [employer] PACS workstation. Total exam DLP is 284.71 mGy-cm. CTDIvol is 5.02 mGy. One or more of the fo llowin dose reduction techniques were used: Automated exposure control, adjustment of the mA and/or kV according to patient size, use of iterative reconstruction technique. COMPARISON: CT scan of the abdomen and pelvis dated 02/06/2017. FINDINGS: The lung bases are normal. There is no pleural effusion. The liver is normal in size and attenuation. There is no focal hepatic lesion. The gallbladder and bile ducts are normal. The spleen is normal in size. There is no focal splenic lesion. Both adrenals are normal with no enlargement or mass. The pancreas is unremarkable with no mass or evidence of pancreatitis. There is mild bilateral hydronephrosis and bilateral ureteral stents are noted as seen previously. T he stents extending into an ileal conduit in the right lower quadrant. The abdominal aorta is not dilated. There is calcification in the aorta consistent with atherosclero sis. There is no retroperitoneal lymphadenopathy or mass. There is no pelvic lymphadenopathy or mass. Multiple abdominal wall ostomies are noted in the left side of abdomen and 1 is present in the right side of the abdomen inferiorly. The bladder may be surgically absent. Previously noted surgical drains in the pelvis are no longer present. There is no free fluid or free gas. There are degenerative changes of the spine. There is no fracture or lytic lesion. IMPRESSION: 1. Mild bilateral hydronephrosis and bilateral ureteral stents as seen previously. 2. Ileal conduit in the right lower quadrant. 3. Atherosclerosis. 4. Multiple abdominal wall ostomy is noted 5. Surgical drains in the pelvis and no longer present. 6. Degenerative changes of the spine. RPTAT: QQ .Sabino Amezcua MD, MD Date Time Electronically viewed and signed by .Sabino Amezcua MD, MD on 03/31/2017 21:37 .R/
[2017-04-01 00:38] VITALS: BP 103/59; RESP 20
[2017-04-01] MEDS: ACCU-CHEK XX SCH (02:00)
[2017-04-01 05:15] LABS: BASOPHILS % 0.2 % (0.0-2.0); EOSINOPHILS # 0.1 10^3/ul (0.0-0.5); EOSINOPHILS % 1.3 % (0.0-7.0); HEMATOCRIT 33.8 % (42.0-52.0); HEMOGLOBIN 10.8 g/dl (14.0-18.0); LYMPHOCYTES # 1.5 10^3/ul (0.8-2.9); LYMPHOCYTES % 17.4 % (15.0-51.0); MEAN CORPUSCULAR HEMOGLOBIN 27.9 pg (29.0-33.0); MEAN CORPUSCULAR VOLUME 87.3 fl (82.0-101.0); MEAN PLATELET VOLUME 9.4 fl (7.4-10.4); MONOCYTE # 0.5 10^3/ul (0.3-0.9); MONOCYTES % 6.4 % (0.0-11.0); NEUTROPHIL # 6.2 10^3/ul (1.6-7.5); NEUTROPHILS % 73.8 % (39.0-77.0); PLATELET COUNT 374 10^3/UL (140-415); RED BLOOD COUNT 3.87 10^6/ul (4.70-6.10); RED CELL DISTRIBUTION WIDTH 15.2 % (11.5-14.5); WHITE BLOOD COUNT 8.4 10^3/ul (4.8-10.8)
[2017-04-01 05:37] LABS: MAGNESIUM 1.8 mg/dl (1.7-2.5)
[2017-04-01] MEDS: INSULIN ASPART [NOVOLOG] 3 ML PEN SC SCH ×4 (06:00→18:08)
[2017-04-01 06:05] LABS: CALCIUM 9.8 mg/dl (8.4-10.2); CREATININE 1.75 mg/dl (0.61-1.24); POTASSIUM 4.1 mmol/L (3.5-5.1)
[2017-04-01] MEDS: MEROPENEM 500MG/50 ML (PMX) 50 ML IVPB SCH (06:10)
[2017-04-01 06:54] LABS: ALBUMIN 4.1 g/dl (3.3-4.9); BILIRUBIN,INDIRECT 0.1 mg/dl (0-1.1); BILIRUBIN,TOTAL 0.1 mg/dl (0.2-1.3); TOTAL PROTEIN 8.9 g/dl (6.1-8.1)
[2017-04-01 07:01] LABS: PREALBUMIN 23.2 mg/dl (17.6-36.0)
[2017-04-01 08:17] VITALS: BP 110/69; RESP 18
[2017-04-01] MEDS ORDERED: INFLUENZA VIRUS VACCINE 0.5 ML (DISPENSING) IM* ONE (09:00)
[2017-04-01] MEDS: HEPARIN 5,000 UNIT/0.5 ML VIAL SC SCH (10:19)
[2017-04-01] MEDS: morphine 2 MG INJ IV PRN ×3 (12:43→22:00)
--- NOTE | 2017-04-01 13:54 | PN ---
Date/Time of Note Date/Time of Note DATE: 04/01/17 TIME: 13:47 Assessment/Plan VTE Prophylaxis VTE Prophylaxis Intervention: heparin Lines/Catheters IV Catheter Type (from [facility]): PICC Line Central line still needed: No Urinary Cath still in place: No Assessment/Plan Chief Complaint/Hosp Course Assessment and plan 1. Acute renal insufficiency. 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 Medications to be renally dosed. Monitor renal panel. 2. History of bladder cancer status post cystoprostatectomy and creation of ileal conduit with colonic diversion for fistula formation. Patient for outpatient management per urologist. 3. Recent history of polymicrobial UTI. Follow urine culture. Patient was placed on antibiotics on admission.Culture showing ESBL again. Will get ID consult 4. Severe protein calorie malnutrition. Will restart patient on TPN. Dietitian did follow the patient. 5. Transaminitis. Follow-up on abdominal imaging 6. Abdominal wound. Wound care consult following. Now with wound VAC in place. Continue wound care Disposition plan: ID consult to follow. Continue with wound care. Discussed plan of care with Dr. Tate Problems: Subjective 24 Hr Interval Summary Free Text/Dictation no reports of abdominal pain Exam/Review of Systems Vital Signs Vitals Vital Signs Date Time Temp Pulse Resp B/P Pulse Ox O2 Delivery O2 Flow Rate FiO2 04/01/17 08:17 98.0 104 18 110/69 99 03/30/17 04:02 Room Air Intake and Output 03/31/17 03/31/17 04/01/17 15:00 23:00 07:00 Intake Total 50 ml 1290 ml 540 ml Output Total 400 ml 1050 ml Balance 50 ml 890 ml -510 ml Exam Constitutional: alert, frail, oriented Psych: nl mood/affect Head: normocephalic Neck: non-tender, supple Respiratory: clear to auscultation Cardiovascular: other (regular rate ) Gastrointestinal: other (Minimally tender. 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, nl mental status, nl speech Results Result Diagram: 04/01/17 0441 04/01/17 0441 Results 24 hrs Laboratory Tests Test 04/01/17 00:20 04/01/17 01:23 04/01/17 04:41 04/01/17 06:08 Bedside Glucose 155 112 119 White Blood Count 8.4 Red Blood Count 3.87 L Hemoglobin 10.8 L Hematocrit 33.8 L Mean Corpuscular Volume 87.3 Mean Corpuscular Hemoglobin 27.9 L Mean Corpuscular Hemoglobin Concent 32.0 Red Cell Distribution Width 15.2 H Platelet Count 374 Mean Platelet Volume 9.4 Neutrophils % 73.8 Lymphocytes % 17.4 Monocytes % 6.4 Eosinophils % 1.3 Basophils % 0.2 Nucleated Red Blood Cells % 0.0 Neutrophils # 6.2 Lymphocytes # 1.5 Monocytes # 0.5 Eosinophils # 0.1 Basophils # 0.0 Nucleated Red Blood Cells # 0.0 Sodium Level 142 Potassium Level 4.1 Chloride Level 103 Carbon Dioxide Level 24 Anion Gap 19 H Blood Urea Nitrogen 41 H Creatinine 1.75 H Glucose Level 153 Hemoglobin A1c 5.6 Calcium Level 9.8 Phosphorus Level 4.0 Magnesium Level 1.8 Total Bilirubin 0.1 L Direct Bilirubin 0.00 Indirect Bilirubin 0.1 Aspartate Amino Transf (AST/SGOT) 46 Alanine Aminotransferase (ALT/SGPT) 115 H Alkaline Phosphatase 710 H Total Protein 8.9 H Albumin 4.1 Prealbumin 23.2 Triglycerides Level 220 H Test 04/01/17 12:39 Bedside Glucose 143 Medications Medications Current Medications Ondansetron HCl (Zofran Inj) 4 mg Q6H PRN IV NAUSEA AND/OR VOMITING; Start at 03:30 Morphine Sulfate (morphine) 2 mg Q4H PRN IV PAIN Last administered on 12:43; Admin Dose 2 MG; Start 03/30/17 at 03:30 Heparin Sodium (Porcine) (Heparin (5000 Units/0.5 ml)) 5,000 unit DAILY SC Last administered on 04/01/17 10:19; Admin Dose 5,000 UNIT; Start 03/30/17 at 09:00 Oxycodone/ Acetaminophen 1 tab 1 tab Q4H PRN PO PAIN; Start 03/30/17 at 06:00 Total Parenteral Nutrition (Tpn) 1,000 ml @ 40 mls/hr Q24H IV Last administered on 03/31/17 17:51; Admin Dose 40 MLS/HR; Start 03/31/17 at 15:00 Diagnostic Test (Pha) (Accu-Chek) 1 ea 02 XX ; Start 04/01/17 at 02:00 Insulin Glargine (Lantus) 10 unit HS SC ; Start 04/01/17 at 21:00 Insulin Aspart (Novolog Insulin Pen) NOVOLOG *MODERATE* ALGORI... Q6 SC Last administered on 04/01/17t 12:57; Admin Dose 2 UNIT; Start 04/01/17 at 00:00 Miscellaneous Information 1 ea NOTE XX ; Start 03/31/17 at 21:00 Glucose (Glutose) 15 gm Q15M PRN PO DECREASED GLUCOSE; Start 03/31/17 at 21:00 Glucose (Glutose) 22.5 gm Q15M PRN PO DECREASED GLUCOSE; Start 03/31/17 at 21: 00 Dextrose (D50w Syringe) 25 ml Q15M PRN IV DECREASED GLUCOSE; Start 03/31/17 at 21:00 Dextrose (D50w Syringe) 50 ml Q15M PRN IV DECREASED GLUCOSE; Start 03/31/17 at 21:00 Glucagon (Glucagen) 1 mg Q15M PRN IM DECREASED GLUCOSE; Start 03/31/17 at 21: 00 Glucose 15 gm 15 gm Q15M PRN BUCCAL DECREASED GLUCOSE; Start 03/31/17 at 21:00 Meropenem/Sodium Chloride (Merrem 1 Gm/50 ml (Pmx)) 50 ml @ 100 mls/hr Q12 IVPB ; Start 04/01/17 at 21:00 ALLISON HAYWARD Apr 01, 2017 13:54
[2017-04-01 15:07] VITALS: BP 110/72; RESP 18
--- NOTE | 2017-04-01 16:54 | CONS ---
Date/Time of Note Date/Time of Note DATE: 04/01/17 TIME: 16:51 Assessment/Plan Assessment/Plan Additional Assessment/Plan 1. acute kidney injury Non oliguric 2. H/o ESBL UTI 3.history of bladder cancer s/p TURBT, chemotherapy/radiation, urethral damage, chemo/radiation induced urinary and fecal incontinence. He underwent cystoprostatectomy with urinary diversion, ileal conduit, colonic diversion for fistula on last admission Plan: pt had a full CKD work up done on last admission, no need to repeat it Continue IV Abx meropenem, renally dose it- changed to 1 gram today off IVF now, on TPN - Cr stable around 1.75 will continue to follow up Consultation Date/Type/Reason Admit Date/Time Mar 30, 2017 at 02:24 Initial Consult Date 03/30/17 Type of Consultation: NEPHROLOGY Referring Provider: MAIKEL ARELLANO 24 HR Interval Summary Free Text/Dictation cr 1.75, on TPN, Meropenem increased to 1 gram Exam/Review of Systems Vital Signs Vitals Vital Signs Date Time Temp Pulse Resp B/P Pulse Ox O2 Delivery O2 Flow Rate FiO2 04/01/17 15:07 98.0 103 18 110/72 99 03/30/17 04:02 Room Air Intake and Output 03/31/17 03/31/17 04/01/17 15:00 23:00 07:00 Intake Total 50 ml 1290 ml 540 ml Output Total 400 ml 1050 ml Balance 50 ml 890 ml -510 ml Exam Constitutional: other (Patient appears weak. No acute distress. He is cachectic) Head: atraumatic, normocephalic Eyes: EOMI, PERRL Respiratory: clear to auscultation, normal air movement Cardiovascular: nl pulses, regular rate and rhythm Gastrointestinal: other (Scaphoid abdomen. Urostomy, colostomy and ileal conduit) Extremities: normal pulses Results Result Diagram: 04/01/17 0441 04/01/17 0441 Results 24 hrs Laboratory Tests Test 04/01/17 00:20 04/01/17 01:23 04/01/17 04:41 04/01/17 06:08 Bedside Glucose 155 112 119 White Blood Count 8.4 Red Blood Count 3.87 L Hemoglobin 10.8 L Hematocrit 33.8 L Mean Corpuscular Volume 87.3 Mean Corpuscular Hemoglobin 27.9 L Mean Corpuscular Hemoglobin Concent 32.0 Red Cell Distribution Width 15.2 H Platelet Count 374 Mean Platelet Volume 9.4 Neutrophils % 73.8 Lymphocytes % 17.4 Monocytes % 6.4 Eosinophils % 1.3 Basophils % 0.2 Nucleated Red Blood Cells % 0.0 Neutrophils # 6.2 Lymphocytes # 1.5 Monocytes # 0.5 Eosinophils # 0.1 Basophils # 0.0 Nucleated Red Blood Cells # 0.0 Sodium Level 142 Potassium Level 4.1 Chloride Level 103 Carbon Dioxide Level 24 Anion Gap 19 H Blood Urea Nitrogen 41 H Creatinine 1.75 H Glucose Level 153 Hemoglobin A1c 5.6 Calcium Level 9.8 Phosphorus Level 4.0 Magnesium Level 1.8 Total Bilirubin 0.1 L Direct Bilirubin 0.00 Indirect Bilirubin 0.1 Aspartate Amino Transf (AST/SGOT) 46 Alanine Aminotransferase (ALT/SGPT) 115 H Alkaline Phosphatase 710 H Total Protein 8.9 H Albumin 4.1 Prealbumin 23.2 Triglycerides Level 220 H Test 04/01/17 12:39 Bedside Glucose 143 Medications Medications Current Medications Ondansetron HCl (Zofran Inj) 4 mg Q6H PRN IV NAUSEA AND/OR VOMITING; Start at 03:30 Morphine Sulfate (morphine) 2 mg Q4H PRN IV PAIN Last administered on 12:43; Admin Dose 2 MG; Start 03/30/17 at 03:30 Heparin Sodium (Porcine) (Heparin (5000 Units/0.5 ml)) 5,000 unit DAILY SC Last administered on 04/01/17 10:19; Admin Dose 5,000 UNIT; Start 03/30/17 at 09:00 Oxycodone/ Acetaminophen 1 tab 1 tab Q4H PRN PO PAIN; Start 03/30/17 at 06:00 Total Parenteral Nutrition (Tpn) 1,000 ml @ 40 mls/hr Q24H IV Last administered on 03/31/17 17:51; Admin Dose 40 MLS/HR; Start 03/31/17 at 15:00 Diagnostic Test (Pha) (Accu-Chek) 1 ea 02 XX ; Start 04/01/17 at 02:00 Insulin Glargine (Lantus) 10 unit HS SC ; Start 04/01/17 at 21:00 Insulin Aspart (Novolog Insulin Pen) NOVOLOG *MODERATE* ALGORI... Q6 SC Last administered on 04/01/17t 12:57; Admin Dose 2 UNIT; Start 04/01/17 at 00:00 Miscellaneous Information 1 ea NOTE XX ; Start 03/31/17 at 21:00 Glucose (Glutose) 15 gm Q15M PRN PO DECREASED GLUCOSE; Start 03/31/17 at 21:00 Glucose (Glutose) 22.5 gm Q15M PRN PO DECREASED GLUCOSE; Start 03/31/17 at 21: 00 Dextrose (D50w Syringe) 25 ml Q15M PRN IV DECREASED GLUCOSE; Start 03/31/17 at 21:00 Dextrose (D50w Syringe) 50 ml Q15M PRN IV DECREASED GLUCOSE; Start 03/31/17 at 21:00 Glucagon (Glucagen) 1 mg Q15M PRN IM DECREASED GLUCOSE; Start 03/31/17 at 21: 00 Glucose 15 gm 15 gm Q15M PRN BUCCAL DECREASED GLUCOSE; Start 03/31/17 at 21:00 Meropenem/Sodium Chloride (Merrem 1 Gm/50 ml (Pmx)) 50 ml @ 100 mls/hr Q12 IVPB ; Start 04/01/17 at 21:00 MARGOT WOMACK MD Apr 01, 2017 16:54
[2017-04-01] MEDS: TPN 1,000 ML IV SCH (16:57)
--- NOTE | 2017-04-01 18:46 | CONS ---
DATE OF ADMISSION: 03/30/2017 DATE OF CONSULTATION: 04/01/2017 TYPE OF CONSULTATION: Infectious disease. REASON FOR CONSULTATION: Antibiotic management. HISTORY OF PRESENT ILLNESS: The patient is a 66-year-old male with a history of bladder cancer stat us post TURBT, chemotherapy and radiation, urethral damage, chemoradiation-induced urinary and fecal incontinence. He also has a history of perforated viscus status post repair and pelvic abscess sta tus post drainage. He had a cystoprostatectomy with urinary diversion and ileal conduit, colonic di version for fistula and was transferred from an outside hospital for generalized weakness. The nikki ent was found to have a urinary tract infection and worsening kidney function. He was treated previ ously for ESBL UTI. He has very mild abdominal discomfort. He was seen at [facility]. Hi s creatinine was found to be 1.8, up from 1.34 at the time of discharge. On admission, white count is 11,000, H and H 8.8 and 28.7, platelet count 276,000. BUN and creatinine 64/1.7 on admission. PAST MEDICAL HISTORY: Operations as outlined. FAMILY HISTORY: Noncontributory. SOCIAL HISTORY: He does not smoke, drink or abuse drugs. ALLERGIES: NONE TO PENICILLIN, SULFA OR FOODS. MEDICATIONS: Per chart. REVIEW OF SYSTEMS: As per HPI. PHYSICAL EXAMINATION: GENERAL: The patient is a cachectic, weak individual who is awake, responsive, in no acute distress . VITAL SIGNS: Stable. He is afebrile. SKIN: Without generalized rash. HEENT: Within normal limits. NECK: Supple. LYMPH NODES: None palpable. CHEST: Decreased breath sounds at the bases. HEART: Without murmur or gallop. ABDOMEN: Soft, scaphoid, without organosplenomegaly or masses. He has a urostomy, a colostomy and ileal conduit. EXTREMITIES: Without cyanosis, clubbing or edema. RECTAL AND GENITAL: Deferred. NEUROLOGIC: No focal neurological abnormality. The patient was started on meropenem. CT scan of the abdomen just confirmed bilateral hydronephrosi s, bilateral ureteral stents, ileal conduit, multiple abdominal wall ostomies, surgical drains in th e pelvis, no longer present. MICROBIOLOGY: The patient had Enterococcus which was sensitive to ampicillin and also E. coli ESBL sensitive to imipenem. So, the patient should be covered in terms of his antibiotic therapy. The patient was followed also by Dr. Louis Miranda in renal consultation. He had a full renal workup on his last admission. He has a PICC line in place. We will continue him on current therapy. I will dictate my findings to katia lanier hospitalist and to Dr. Louis Miranda. Dictated By: TREVOR JOHNSON MD, JD/MADHURI Conf#: [id number] DID#: [id number]
[2017-04-01] MEDS: INSULIN GLARGINE [LANtus] 3 ML PEN SC SCH (20:54)
[2017-04-01] MEDS: MEROPENEM 1 GM/50ML(PMX) 50 ML IVPB SCH (20:55)
[2017-04-01 21:16] VITALS: BP 111/63; RESP 20
--- NOTE | 2017-04-01 23:32 | CONS ---
Date/Time of Note Date/Time of Note DATE: 04/01/17 TIME: 23:32 Assessment/Plan Assessment/Plan Chief Complaint/Hosp Course 1. Multiple ostomies and ileal conduit: all ostomies pink and moist; s/p multiple Perforated viscous w small bowel proximal looped ostomy (minimum 6 month wait prior to considering attempting abdominal re-exploration ) -continue ostomy care -continue oral feed, TPN -continue local abdominal wound care-w vac -oral diet as tolerated with protein shakes and probiotics -oob/ambulate 2. UTI w +cultures -abx/antimicrobials per sensitivity -frequent bladder emptying/cath care 3. Malnutrition: tolerating solid diet; no nausea with increase of loperamide -continue tpn -vitamins, probiotics, and nutritional supplements 4. MANA: -judicious fluids -limit nephrotoxic meds 5. Bladder cancer: s/p chemo/radiation, s/p cystoprostatectomy with urinary diversion -per oncology/urology 6. Normocytic hypochromic anemia: no overt bleed noted -monitor -transfuse as needed -further workup per medical team Thank you. Patient seen and examined in collaboration with Dr. Bang Ross Problems: Consultation Date/Type/Reason Admit Date/Time Mar 30, 2017 at 02:24 Date of Consultation: Apr 01, 2017 Type of Consultation: surgical Reason for Consultation prior surgeries, multiple ostomies Referring Provider: ALLISON HAYWARD of Present Illness Sander Wilson is a 66 yo male who is known to our service with significant history of bladder cancer s/p TURBT, chemotherapy/radiation where he sustained urethral damage as well as fecal and urinary incontinence as a result of chemo/radiation treatment. He also had a perforated viscous with leak s/p ex lap, extensive jhonathan, small bowel proximal looped ostomy. After a prolonged hospital stay, he was discharged home with home health set up to provide tpn and wound and ostomy care. He was transferred from an outside hospital for generalized weakness and weight loss. Upon further workup he was found to have a UTI and a worsening kidney function. Per family, he is also having discharge per rectum. General surgery was asked to evaluate Constitutional: chills, febrile Eyes: No visual change ENT: No congestion Respiratory: No cough, No pain, No shortness of breath Cardiovascular: No chest pain, No palpitations Gastrointestinal: nausea, other (discharge per rectum), passing stool, No vomiting Genitourinary: No dysuria, No hematuria Skin: No bruising, No rash, No skin lesions Neurologic: No focal-weakness Psychological: nl mood/affect Past Medical History bladder ca Past Surgical History TURBT exploratory lap abdominal washout ileal conduit loop ileostomy colostomy radical cystectomy Past Surgical Hx: other Family History Significant Family History: no pertinent family hx Social History Smoking Status: Never smoker Exam/Review of Systems Vital Signs Vitals Vital Signs Date Time Temp Pulse Resp B/P Pulse Ox O2 Delivery O2 Flow Rate FiO2 04/01/17 21:16 99.1 97 20 111/63 99 03/30/17 04:02 Room Air Intake and Output 03/31/17 03/31/17 04/01/17 15:00 23:00 07:00 Intake Total 50 ml 1290 ml 540 ml Output Total 400 ml 1050 ml Balance 50 ml 890 ml -510 ml Exam Constitutional: alert, frail, oriented Psych: nl mood/affect, no complaints Head: atraumatic, normocephalic Eyes: nl lids, nl sclera ENMT: mucosa pink and moist, nl nasal mucosa & septum Neck: non-tender, supple Respiratory: normal air movement Cardiovascular: nl pulses, regular rate and rhythm Gastrointestinal: non-tender, other (ileostomy, colostomy), soft Genitourinary - Male: nl penis, nl scrotum Musculoskeletal: nl extremities to inspection, nl gait and stance Extremities: normal pulses, No edema Neurological: nl mental status, nl speech Skin: nl turgor, rash or lesions Results Result Diagram: 04/01/17 04404/01/17440 Results 24 hrs Laboratory Tests Test 04/01/17 00:20 04/01/17 01:23 04/01/17 04:41 04/01/17 06:08 Bedside Glucose 155 112 119 White Blood Count 8.4 Red Blood Count 3.87 L Hemoglobin 10.8 L Hematocrit 33.8 L Mean Corpuscular Volume 87.3 Mean Corpuscular Hemoglobin 27.9 L Mean Corpuscular Hemoglobin Concent 32.0 Red Cell Distribution Width 15.2 H Platelet Count 374 Mean Platelet Volume 9.4 Neutrophils % 73.8 Lymphocytes % 17.4 Monocytes % 6.4 Eosinophils % 1.3 Basophils % 0.2 Nucleated Red Blood Cells % 0.0 Neutrophils # 6.2 Lymphocytes # 1.5 Monocytes # 0.5 Eosinophils # 0.1 Basophils # 0.0 Nucleated Red Blood Cells # 0.0 Sodium Level 142 Potassium Level 4.1 Chloride Level 103 Carbon Dioxide Level 24 Anion Gap 19 H Blood Urea Nitrogen 41 H Creatinine 1.75 H Glucose Level 153 Hemoglobin A1c 5.6 Calcium Level 9.8 Phosphorus Level 4.0 Magnesium Level 1.8 Total Bilirubin 0.1 L Direct Bilirubin 0.00 Indirect Bilirubin 0.1 Aspartate Amino Transf (AST/SGOT) 46 Alanine Aminotransferase (ALT/SGPT) 115 H Alkaline Phosphatase 710 H Total Protein 8.9 H Albumin 4.1 Prealbumin 23.2 Triglycerides Level 220 H Test 04/01/17 12:39 04/01/17 17:49 04/01/17 20:52 Bedside Glucose 143 230 H 90 Medications Medications Current Medications Ondansetron HCl (Zofran Inj) 4 mg Q6H PRN IV NAUSEA AND/OR VOMITING; Start at 03:30 Morphine Sulfate (morphine) 2 mg Q4H PRN IV PAIN Last administered on 22:00; Admin Dose 2 MG; Start 03/30/17 at 03:30 Heparin Sodium (Porcine) (Heparin (5000 Units/0.5 ml)) 5,000 unit DAILY SC Last administered on 04/01/17 10:19; Admin Dose 5,000 UNIT; Start 03/30/17 at 09:00 Oxycodone/ Acetaminophen 1 tab 1 tab Q4H PRN PO PAIN; Start 03/30/17 at 06:00 Total Parenteral Nutrition (Tpn) 1,000 ml @ 40 mls/hr Q24H IV Last administered on 04/01/17 16:57; Admin Dose 40 MLS/HR; Start 03/31/17 at 15:00 Diagnostic Test (Pha) (Accu-Chek) 1 ea 02 XX ; Start 04/01/17 at 02:00 Insulin Glargine (Lantus) 10 unit HS SC Last administered on 04/01/17 20:54; Admin Dose 10 UNIT; Start 04/01/17 at 21:00 Insulin Aspart (Novolog Insulin Pen) NOVOLOG *MODERATE* ALGORI... Q6 SC Last administered on 04/01/17 18:08; Admin Dose 6 UNIT; Start 04/01/17 at 00:00 Miscellaneous Information 1 ea NOTE XX ; Start 03/31/17 at 21:00 Glucose (Glutose) 15 gm Q15M PRN PO DECREASED GLUCOSE; Start 03/31/17 at 21:00 Glucose (Glutose) 22.5 gm Q15M PRN PO DECREASED GLUCOSE; Start 03/31/17 at 21: 00 Dextrose (D50w Syringe) 25 ml Q15M PRN IV DECREASED GLUCOSE; Start 03/31/17 at 21:00 Dextrose (D50w Syringe) 50 ml Q15M PRN IV DECREASED GLUCOSE; Start 03/31/17 at 21:00 Glucagon (Glucagen) 1 mg Q15M PRN IM DECREASED GLUCOSE; Start 03/31/17 at 21: 00 Glucose 15 gm 15 gm Q15M PRN BUCCAL DECREASED GLUCOSE; Start 03/31/17 at 21:00 Meropenem/Sodium Chloride (Merrem 1 Gm/50 ml (Pmx)) 50 ml @ 100 mls/hr Q12 IVPB Last administered on 04/01/17t 20:55; Admin Dose 100 MLS/HR; Start 04/01 at 21:00 IFTIKHAR ROBERTSON NP Apr 01, 2017 23:32
[2017-04-02] MEDS: INSULIN ASPART [NOVOLOG] 3 ML PEN SC SCH ×5 (00:27→23:42)
[2017-04-02 00:39] VITALS: BP 103/63; RESP 20
[2017-04-02] MEDS: ACCU-CHEK XX SCH (02:00)
[2017-04-02 05:44] LABS: BASOPHILS % 0.4 % (0.0-2.0); EOSINOPHILS # 0.2 10^3/ul (0.0-0.5); EOSINOPHILS % 1.6 % (0.0-7.0); HEMATOCRIT 35.6 % (42.0-52.0); HEMOGLOBIN 11.3 g/dl (14.0-18.0); LYMPHOCYTES # 2.1 10^3/ul (0.8-2.9); LYMPHOCYTES % 20.1 % (15.0-51.0); MEAN CORPUSCULAR HGB CONC 31.7 g/dl (32.0-37.0); MEAN CORPUSCULAR VOLUME 88.1 fl (82.0-101.0); MEAN PLATELET VOLUME 9.5 fl (7.4-10.4); MONOCYTE # 0.6 10^3/ul (0.3-0.9); MONOCYTES % 6.2 % (0.0-11.0); NEUTROPHIL # 7.3 10^3/ul (1.6-7.5); NEUTROPHILS % 70.4 % (39.0-77.0); PLATELET COUNT 404 10^3/UL (140-415); RED BLOOD COUNT 4.04 10^6/ul (4.70-6.10); RED CELL DISTRIBUTION WIDTH 14.8 % (11.5-14.5); WHITE BLOOD COUNT 10.3 10^3/ul (4.8-10.8)
[2017-04-02 05:53] LABS: ALBUMIN 3.4 g/dl (3.3-4.9); BILIRUBIN,INDIRECT 0.1 mg/dl (0-1.1); BILIRUBIN,TOTAL 0.1 mg/dl (0.2-1.3); TOTAL PROTEIN 7.7 g/dl (6.1-8.1)
[2017-04-02 05:56] LABS: CALCIUM 10.1 mg/dl (8.4-10.2); CREATININE 1.79 mg/dl (0.61-1.24); POTASSIUM 4.6 mmol/L (3.5-5.1)
[2017-04-02 07:44] LABS: MAGNESIUM 1.5 mg/dl (1.7-2.5); PHOSPHORUS 3.5 mg/dl (2.5-4.9)
[2017-04-02 08:33] VITALS: BP 100/61; RESP 20
[2017-04-02] MEDS: MEROPENEM 1 GM/50ML(PMX) 50 ML IVPB SCH ×2 (08:57→21:34)
[2017-04-02] MEDS: HEPARIN 5,000 UNIT/0.5 ML VIAL SC SCH (09:06)
[2017-04-02] MEDS: LINEZOLID 600 MG/D5W (PMX) 300 ML IVPB SCH ×2 (11:42→20:27)
[2017-04-02] MEDS: TPN 1,000 ML IV SCH (11:44)
[2017-04-02] MEDS: morphine 2 MG INJ IV PRN ×3 (11:59→22:42)
--- NOTE | 2017-04-02 12:29 | CONS ---
Date/Time of Note Date/Time of Note DATE: 04/02/17 TIME: 12: Consult Date/Type/Reason Admit Date/Time Mar 30, 2017 at 02:24 Initial Consult Date 03/30/17 Type of Consultation: Pulmonary Ordering Provider: MAIKEL ARELLANO Subjective Patient remained stable no new events. Continues TPN. at bedside. Objective Vital Signs Date Time Temp Pulse Resp B/P Pulse Ox O2 Delivery O2 Flow Rate FiO2 04/02/17 08:33 98.1 99 20 100/61 96 03/30/17 04:02 Room Air Intake and Output 04/01/17 04/01/17 04/02/17 15:00 23:00 07:00 Intake Total 1530 ml 850 ml Output Total 2250 ml 3700 ml Balance -720 ml -2850 ml Exam GENERAL: Chronically ill-appearing gentleman comfortable at rest VITAL SIGNS: per chart NECK: Supple. No JVD or lymphadenopathy. CARDIAC EXAM: S1, S2. No added sounds or murmurs. CHEST: clear bilaterally, No added sounds, rales or wheezes ABDOMEN: Soft, nontender. No guarding or rebound. EXTREMITIES: No cyanosis, clubbing or edema. NEUROLOGIC: Generalized weakness. No focal deficits. Results/Medications Result Diagram: 04/02/17 0503 04/02/17 0503 Results 24 hrs Laboratory Tests Test 04/01/17 12:39 04/01/17 17:49 04/01/17 20:52 04/02/17 00:24 Bedside Glucose 143 230 H 90 176 Test 04/02/17 05:03 04/02/17 06:22 04/02/17 11:48 White Blood Count 10.3 # Red Blood Count 4.04 L Hemoglobin 11.3 L Hematocrit 35.6 L Mean Corpuscular Volume 88.1 Mean Corpuscular Hemoglobin 28.0 L Mean Corpuscular Hemoglobin Concent 31.7 L Red Cell Distribution Width 14.8 H Platelet Count 404 Mean Platelet Volume 9.5 Neutrophils % 70.4 Lymphocytes % 20.1 Monocytes % 6.2 Eosinophils % 1.6 Basophils % 0.4 Nucleated Red Blood Cells % 0.0 Neutrophils # 7.3 Lymphocytes # 2.1 Monocytes # 0.6 Eosinophils # 0.2 Basophils # 0.0 Nucleated Red Blood Cells # 0.0 Sodium Level 139 Potassium Level 4.6 Chloride Level 103 Carbon Dioxide Level 26 Anion Gap 15 Blood Urea Nitrogen 50 H Creatinine 1.79 H Glucose Level 151 Calcium Level 10.1 Phosphorus Level 3.5 Magnesium Level 1.5 L Total Bilirubin 0.1 L Direct Bilirubin 0.00 Indirect Bilirubin 0.1 Aspartate Amino Transf (AST/SGOT) 46 Alanine Aminotransferase (ALT/SGPT) 114 H Alkaline Phosphatase 580 H Total Protein 7.7 # Albumin 3.4 Bedside Glucose 147 131 Medications Current Medications Ondansetron HCl (Zofran Inj) 4 mg Q6H PRN IV NAUSEA AND/OR VOMITING; Start at 03:30 Morphine Sulfate (morphine) 2 mg Q4H PRN IV PAIN Last administered on 11:59; Admin Dose 2 MG; Start 03/30/17 at 03:30 Heparin Sodium (Porcine) (Heparin (5000 Units/0.5 ml)) 5,000 unit DAILY SC Last administered on 04/02/17 09:06; Admin Dose 5,000 UNIT; Start 03/30/17 at 09:00 Oxycodone/ Acetaminophen 1 tab 1 tab Q4H PRN PO PAIN; Start 03/30/17 at 06:00 Total Parenteral Nutrition (Tpn) 1,000 ml @ 70 mls/hr [id number] IV Last administered on 04/02/17 11:44; Admin Dose 70 MLS/HR; Start 03/31/17 at 15:00 Diagnostic Test (Pha) (Accu-Chek) 1 ea 02 XX ; Start 04/01/17 at 02:00 Insulin Glargine (Lantus) 10 unit HS SC Last administered on 04/01/17 20:54; Admin Dose 10 UNIT; Start 04/01/17 at 21:00 Insulin Aspart (Novolog Insulin Pen) NOVOLOG *MODERATE* ALGORI... Q6 SC Last administered on 04/02/17 06:25; Admin Dose 2 UNIT; Start 04/01/17 at 00:00 Miscellaneous Information 1 ea NOTE XX ; Start 03/31/17 at 21:00 Glucose (Glutose) 15 gm Q15M PRN PO DECREASED GLUCOSE; Start 03/31/17 at 21:00 Glucose (Glutose) 22.5 gm Q15M PRN PO DECREASED GLUCOSE; Start 03/31/17 at 21: 00 Dextrose (D50w Syringe) 25 ml Q15M PRN IV DECREASED GLUCOSE; Start 03/31/17 at 21:00 Dextrose (D50w Syringe) 50 ml Q15M PRN IV DECREASED GLUCOSE; Start 03/31/17 at 21:00 Glucagon (Glucagen) 1 mg Q15M PRN IM DECREASED GLUCOSE; Start 03/31/17 at 21: 00 Glucose 15 gm 15 gm Q15M PRN BUCCAL DECREASED GLUCOSE; Start 03/31/17 at 21:00 Meropenem/Sodium Chloride 50 ml @ 100 mls/hr Q12 IVPB Last administered on 08:57; Admin Dose 100 MLS/HR; Start 04/01/17 at 21:00 Linezolid (Zyvox 600mg/D5W (Pmx)) 300 ml @ 300 mls/hr Q12 IVPB Last administered on 04/02/17 11:42; Admin Dose 300 MLS/HR; Start 04/02/17 at 11: 30 Assessment/Plan Chief Complaint/Hosp Course Assessment and plan 1. Acute renal insufficiency. Test Engine Evaluator following. Medications to be renally dosed. Monitor renal panel. 2. History of bladder cancer status post cystoprostatectomy and creation of ileal conduit with colonic diversion for fistula formation. Patient for outpatient management per urologist. 3. Recent history of polymicrobial UTI. Cultures demonstrate ESBL and E. coli. Antibiotics adjusted appreciate ID consult 4. Severe protein calorie malnutrition. Will restart patient on TPN. Dietitian did follow the patient. Will follow dietitian recommendations. 5. Transaminitis. Follow-up on abdominal imaging 6. Abdominal wound. Wound care consult following. Now with wound VAC in place. Continue wound care Disposition plan: Continue current care. Problems: MONA BEATTY MD, [facility] Apr 02, 2017 12:29
--- NOTE | 2017-04-02 12:40 | PN ---
DATE: 04/02/2017 SUBJECTIVE: No acute events overnight. The patient is alert, denies pain, looks comfortable, no fe vers. VITAL SIGNS: Temperature 98.1, pulse 99, respirations 20, blood pressure 100/61, saturation 96% on room air. WBC 10.3, platelets 404, no shift, no bands, H and H 11.3 and 35.6, BUN 50, creatinine 1.79. MICROBIOLOGY: Urine culture growing Escherichia coli extended-spectrum beta-lactamase and Enterococ cus species. Blood cultures negative. ANTIMICROBIALS: Patient is on: 1. Zyvox 2. Meropenem. DIAGNOSTICS: CT of the abdomen and pelvis revealed mild bilateral hydronephrosis and bilateral uret eral stents. Ileal conduit in the right lower quadrant, multiple abdominal wall ostomy, noted surgi ricarda drains in the pelvis no longer present, degenerative changes of the spine. PHYSICAL EXAMINATION: GENERAL. This is a well-developed, cachectic elderly man who is awake, in no distress. HEENT: Head atraumatic, normocephalic. Sclerae anicteric. Buccal mucosa dry. NECK: Supple, trachea midline. CHEST: Rise symmetrical. Breath sounds diminished to bases. HEART: S1, S2. ABDOMEN: Soft. Bowel sounds present. The patient has multiple ostomies on the left. He has a wou nd VAC to suprapubic area and ostomy on the right. EXTREMITIES: Without cyanosis or edema. ASSESSMENT: 1. Recurrent urinary tract infection. 2. History of perforated viscus repair with multiple pelvic abscess drainage. 3. History of cystoprostatectomy with urinary diversion and ileal conduit. 4. Acute renal failure. 5. Cachexia. 6. Bladder cancer. PLAN: Patient is hemodynamically stable and clinically stable. He is being followed by multiple co nsultants and seems to be on appropriate antimicrobials pending final urine cultures. Dictated By: KING MARQUES LAW ENFORCEMENT OFFICER for TREVOR CRUZ/MADHURI Conf#: [id number] DID#: [id number]
--- NOTE | 2017-04-02 14:16 | CONS ---
Date/Time of Note Date/Time of Note DATE: 04/02/17 TIME: 14:15 Assessment/Plan Assessment/Plan Additional Assessment/Plan 1. acute kidney injury Non oliguric 2. H/o ESBL UTI 3.history of bladder cancer s/p TURBT, chemotherapy/radiation, urethral damage, chemo/radiation induced urinary and fecal incontinence. He underwent cystoprostatectomy with urinary diversion, ileal conduit, colonic diversion for fistula on last admission Plan: pt had a full CKD work up done on last admission, no need to repeat it Continue IV Abx meropenem, renally dose it- changed to 1 gram daily, zyvox added 600 mg IV BID off IVF now, on TPN - Cr stable around 1.79 will continue to follow up Consultation Date/Type/Reason Admit Date/Time Mar 30, 2017 at 02:24 Initial Consult Date 03/30/17 Type of Consultation: NEPHROLOGY Referring Provider: ALLISON HAYWARD 24 HR Interval Summary Free Text/Dictation Cr 1.79, BP stable, on TPN Exam/Review of Systems Vital Signs Vitals Vital Signs Date Time Temp Pulse Resp B/P Pulse Ox O2 Delivery O2 Flow Rate FiO2 04/02/17 08:33 98.1 99 20 100/61 96 03/30/17 04:02 Room Air Intake and Output 04/01/17 04/01/17 04/02/17 14:59 22:59 06:59 Intake Total 50 ml 1530 ml 850 ml Output Total 2250 ml 3700 ml Balance 50 ml -720 ml -2850 ml Results Result Diagram: 04/02/17 0503 04/02/17 0503 Results 24 hrs Laboratory Tests Test 04/01/17 17:49 04/01/17 20:52 04/02/17 00:24 04/02/17 05:03 Bedside Glucose 230 H 90 176 White Blood Count 10.3 # Red Blood Count 4.04 L Hemoglobin 11.3 L Hematocrit 35.6 L Mean Corpuscular Volume 88.1 Mean Corpuscular Hemoglobin 28.0 L Mean Corpuscular Hemoglobin Concent 31.7 L Red Cell Distribution Width 14.8 H Platelet Count 404 Mean Platelet Volume 9.5 Neutrophils % 70.4 Lymphocytes % 20.1 Monocytes % 6.2 Eosinophils % 1.6 Basophils % 0.4 Nucleated Red Blood Cells % 0.0 Neutrophils # 7.3 Lymphocytes # 2.1 Monocytes # 0.6 Eosinophils # 0.2 Basophils # 0.0 Nucleated Red Blood Cells # 0.0 Sodium Level 139 Potassium Level 4.6 Chloride Level 103 Carbon Dioxide Level 26 Anion Gap 15 Blood Urea Nitrogen 50 H Creatinine 1.79 H Glucose Level 151 Calcium Level 10.1 Phosphorus Level 3.5 Magnesium Level 1.5 L Total Bilirubin 0.1 L Direct Bilirubin 0.00 Indirect Bilirubin 0.1 Aspartate Amino Transf (AST/SGOT) 46 Alanine Aminotransferase (ALT/SGPT) 114 H Alkaline Phosphatase 580 H Total Protein 7.7 # Albumin 3.4 Test 04/02/17 06:22 04/02/17 11:48 Bedside Glucose 147 131 Medications Medications Current Medications Ondansetron HCl (Zofran Inj) 4 mg Q6H PRN IV NAUSEA AND/OR VOMITING; Start at 03:30 Morphine Sulfate (morphine) 2 mg Q4H PRN IV PAIN Last administered on 11:59; Admin Dose 2 MG; Start 03/30/17 at 03:30 Heparin Sodium (Porcine) (Heparin (5000 Units/0.5 ml)) 5,000 unit DAILY SC Last administered on 04/02/17 09:06; Admin Dose 5,000 UNIT; Start 03/30/17 at 09:00 Oxycodone/ Acetaminophen 1 tab 1 tab Q4H PRN PO PAIN; Start 03/30/17 at 06:00 Total Parenteral Nutrition (Tpn) 1,000 ml @ 70 mls/hr [id number] IV Last administered on 04/02/17 11:44; Admin Dose 70 MLS/HR; Start 03/31/17 at 15:00 Diagnostic Test (Pha) (Accu-Chek) 1 ea 02 XX ; Start 04/01/17 at 02:00 Insulin Glargine (Lantus) 10 unit HS SC Last administered on 04/01/17 20:54; Admin Dose 10 UNIT; Start 04/01/17 at 21:00 Insulin Aspart (Novolog Insulin Pen) NOVOLOG *MODERATE* ALGORI... Q6 SC Last administered on 04/02/17 06:25; Admin Dose 2 UNIT; Start 04/01/17 at 00:00 Miscellaneous Information 1 ea NOTE XX ; Start 03/31/17 at 21:00 Glucose (Glutose) 15 gm Q15M PRN PO DECREASED GLUCOSE; Start 03/31/17 at 21:00 Glucose (Glutose) 22.5 gm Q15M PRN PO DECREASED GLUCOSE; Start 03/31/17 at 21: 00 Dextrose (D50w Syringe) 25 ml Q15M PRN IV DECREASED GLUCOSE; Start 03/31/17 at 21:00 Dextrose (D50w Syringe) 50 ml Q15M PRN IV DECREASED GLUCOSE; Start 03/31/17 at 21:00 Glucagon (Glucagen) 1 mg Q15M PRN IM DECREASED GLUCOSE; Start 03/31/17 at 21: 00 Glucose 15 gm 15 gm Q15M PRN BUCCAL DECREASED GLUCOSE; Start 03/31/17 at 21:00 Meropenem/Sodium Chloride 50 ml @ 100 mls/hr Q12 IVPB Last administered on 08:57; Admin Dose 100 MLS/HR; Start 04/01/17 at 21:00 Linezolid (Zyvox 600mg/D5W (Pmx)) 300 ml @ 300 mls/hr Q12 IVPB Last administered on 04/02/17 11:42; Admin Dose 300 MLS/HR; Start 04/02/17 at 11: 30 MARGOT WOMACK MD Apr 02, 2017 14:16
[2017-04-02 20:12] VITALS: BP 105/65; PULSE 88; RESP 18
[2017-04-02] MEDS: INSULIN GLARGINE [LANtus] 3 ML PEN SC SCH (20:32)
[2017-04-03] MEDS: ACCU-CHEK XX SCH (01:36)
[2017-04-03 02:35] VITALS: BP 107/62; RESP 18
[2017-04-03] MEDS: morphine 2 MG INJ IV PRN ×4 (02:55→23:02)
[2017-04-03] MEDS: TPN 1,000 ML IV SCH ×2 (02:55→18:25)
[2017-04-03 05:13] LABS: BASOPHILS % 0.2 % (0.0-2.0); EOSINOPHILS # 0.2 10^3/ul (0.0-0.5); EOSINOPHILS % 1.5 % (0.0-7.0); HEMATOCRIT 32.7 % (42.0-52.0); HEMOGLOBIN 10.4 g/dl (14.0-18.0); LYMPHOCYTES # 2.5 10^3/ul (0.8-2.9); LYMPHOCYTES % 21.7 % (15.0-51.0); MEAN CORPUSCULAR HEMOGLOBIN 27.5 pg (29.0-33.0); MEAN CORPUSCULAR HGB CONC 31.8 g/dl (32.0-37.0); MEAN CORPUSCULAR VOLUME 86.5 fl (82.0-101.0); MEAN PLATELET VOLUME 9.2 fl (7.4-10.4); MONOCYTE # 0.7 10^3/ul (0.3-0.9); MONOCYTES % 5.6 % (0.0-11.0); NEUTROPHIL # 8.1 10^3/ul (1.6-7.5); NEUTROPHILS % 69.8 % (39.0-77.0); PLATELET COUNT 334 10^3/UL (140-415); RED BLOOD COUNT 3.78 10^6/ul (4.70-6.10); RED CELL DISTRIBUTION WIDTH 14.7 % (11.5-14.5); WHITE BLOOD COUNT 11.6 10^3/ul (4.8-10.8)
[2017-04-03 05:45] LABS: MAGNESIUM 1.6 mg/dl (1.7-2.5); PHOSPHORUS 3.5 mg/dl (2.5-4.9)
[2017-04-03] MEDS: INSULIN ASPART [NOVOLOG] 3 ML PEN SC SCH ×4 (05:56→23:36)
[2017-04-03 06:02] LABS: CALCIUM 9.5 mg/dl (8.4-10.2); CREATININE 1.63 mg/dl (0.61-1.24); POTASSIUM 4.3 mmol/L (3.5-5.1)
[2017-04-03 07:42] VITALS: BP 108/71; RESP 16
[2017-04-03] MEDS: MEROPENEM 1 GM/50ML(PMX) 50 ML IVPB SCH ×2 (08:42→21:12)
[2017-04-03] MEDS: LINEZOLID 600 MG/D5W (PMX) 300 ML IVPB SCH ×2 (09:22→21:44)
[2017-04-03] MEDS: HEPARIN 5,000 UNIT/0.5 ML VIAL SC SCH (09:34)
--- NOTE | 2017-04-03 12:11 | CONS ---
Date/Time of Note Date/Time of Note DATE: 04/03/17 TIME: 11:50 Assessment/Plan Assessment/Plan Chief Complaint/Hosp Course ID PROGRESS NOTE CURRENT ABX: DAY # 5 => Zyvox + Merrem 24H INTERVAL SUMMARY * Resting in bed, lethargic, no new issues, no complaints, VSS, NAD * No fever today, WBC up today * CT of the abdomen and pelvis revealed mild bilateral hydronephrosis and bilateral ureteral stents. Ileal conduit in the right lower quadrant, multiple abdominal wall ostomy, noted surgical drains in the pelvis no longer present, degenerative changes of the spine. * 04/03/17 0445 04/03/17 0445 PHYSICAL EXAMINATION: GENERAL: Frail, cachectic M, lethargic, awakens, A/A/O -> VSS, no fevers, NAD HEENT: Bilateral temporal wasting NECK: Supple, full ROM CHEST: Equal chest rise bilaterally, without dyspnea on room air CV: Radial pulse RRR ABD: Soft, colostomy, ileostomy conduit : Deferred, no FC EXT: Warm, no C/C/E, ambulatory moves all extremities SKIN: No rash, no diaphoresis ID ASSESSMENT 66 yo M w/ PMHx bladder cancer re-admitted with: 1. SIS w/ low grade temps 99.0+ range + Leukocytosis 2/2 Recurrent complicated urinary tract infection. * 03/30/17 BCx (-) * 03/30/17 URINE CULTURE Final * Organism 1 ESCHERICHIA COLI (ESBL) 10,000 - 20,000 CFU/ml * Organism 2 ENTEROCOCCUS SPECIES >100,000 CFU/ml 2. History of perforated viscus repair with multiple pelvic abscess drainage * s/p 01/05/18 Perforated viscous with leak s/p ex lap, extensive lysis adhesions , small bowel proximal looped ostomy 01/05/17 * Colostomy state=> Stable * Open ABD wound => local wound care treatment 3. Bladder/Prostate Cancer * s/p chemotherapy/radiation where he sustained urethral damage as well as fecal and urinary incontinence as a result of chemo/radiation treatment. * s/p cystoprostatectomy with urinary diversion prior admission * Ileostomy conduit w/pink stoma 4. Acute renal failure=> Hx of obstructive uropathy w/bilateral JJ stents prior admission * CT of the abdomen and pelvis revealed mild bilateral hydronephrosis and bilateral ureteral stents. 5. Generalized weakness w/debility + cachexia w/ hypoalbuminemia: malnutrition + failure to thrive * TPN dependent 6. Microcytic anemia: 2/2 chronic disease + chemo/radiation +/- post-surgical; h/h stable 7. Transaminitis 8. Osteoarthritis: DJD spine (-)MRSA Nares Screen CURRENT ABX: DAY # 5 => Zyvox + Merrem ID RECOMMENDATIONS 1. Continue Current ABX for polymicrobial UTI => anticipate minimal 10 days (hx of uretal stents) 2. Per surgery notes prior admission, the plan was to anticipate TPN 6 mos ? Possible repeat exploration future? 3. Continue local ABD wound care . . Problems: Consultation Date/Type/Reason Admit Date/Time Mar 30, 2017 at 02:24 Initial Consult Date 04/01/17 Type of Consultation: ID Referring Provider: ALLISON HAYWARD Exam/Review of Systems Vital Signs Vitals Vital Signs Date Time Temp Pulse Resp B/P Pulse Ox O2 Delivery O2 Flow Rate FiO2 04/03/17 07:42 98.8 81 16 108/71 96 04/02/17 20:12 Room Air Intake and Output 04/02/17 04/02/17 04/03/17 15:00 23:00 07:00 Intake Total 210 ml 1520 ml 1200 ml Output Total 1650 ml 1600 ml Balance 210 ml -130 ml -400 ml Results Result Diagram: 04/03/17 0445 04/03/17 0445 Results 24 hrs Laboratory Tests Test 04/02/17 17:42 04/02/17 20:26 04/02/17 23:39 04/03/17 04:45 Bedside Glucose 118 173 122 White Blood Count 11.6 H Red Blood Count 3.78 L Hemoglobin 10.4 L Hematocrit 32.7 L Mean Corpuscular Volume 86.5 Mean Corpuscular Hemoglobin 27.5 L Mean Corpuscular Hemoglobin Concent 31.8 L Red Cell Distribution Width 14.7 H Platelet Count 334 Mean Platelet Volume 9.2 Neutrophils % 69.8 Lymphocytes % 21.7 Monocytes % 5.6 Eosinophils % 1.5 Basophils % 0.2 Nucleated Red Blood Cells % 0.0 Neutrophils # 8.1 H Lymphocytes # 2.5 Monocytes # 0.7 Eosinophils # 0.2 Basophils # 0.0 Nucleated Red Blood Cells # 0.0 Sodium Level 135 Potassium Level 4.3 Chloride Level 103 Carbon Dioxide Level 21 Anion Gap 15 Blood Urea Nitrogen 54 H Creatinine 1.63 H Glucose Level 132 Calcium Level 9.5 Phosphorus Level 3.5 Magnesium Level 1.6 L Test 04/03/17 05:50 Bedside Glucose 120 Medications Medications Current Medications Ondansetron HCl (Zofran Inj) 4 mg Q6H PRN IV NAUSEA AND/OR VOMITING; Start at 03:30 Morphine Sulfate (morphine) 2 mg Q4H PRN IV PAIN Last administered on 02:55; Admin Dose 2 MG; Start 03/30/17 at 03:30 Heparin Sodium (Porcine) (Heparin (5000 Units/0.5 ml)) 5,000 unit DAILY SC Last administered on 04/03/17 09:34; Admin Dose 5,000 UNIT; Start 03/30/17 at 09:00 Oxycodone/ Acetaminophen 1 tab 1 tab Q4H PRN PO PAIN; Start 03/30/17 at 06:00 Total Parenteral Nutrition (Tpn) 1,000 ml @ 70 mls/hr [id number] IV Last administered on 04/03/17 02:55; Admin Dose 70 MLS/HR; Start 03/31/17 at 15:00 Diagnostic Test (Pha) (Accu-Chek) 1 ea 02 XX ; Start 04/01/17 at 02:00 Insulin Glargine (Lantus) 10 unit HS SC Last administered on 04/02/17 20:32; Admin Dose 10 UNIT; Start 04/01/17 at 21:00 Insulin Aspart (Novolog Insulin Pen) NOVOLOG *MODERATE* ALGORI... Q6 SC Last administered on 04/02/17 06:25; Admin Dose 2 UNIT; Start 04/01/17 at 00:00 Miscellaneous Information 1 ea NOTE XX ; Start 03/31/17 at 21:00 Glucose (Glutose) 15 gm Q15M PRN PO DECREASED GLUCOSE; Start 03/31/17 at 21:00 Glucose (Glutose) 22.5 gm Q15M PRN PO DECREASED GLUCOSE; Start 03/31/17 at 21: 00 Dextrose (D50w Syringe) 25 ml Q15M PRN IV DECREASED GLUCOSE; Start 03/31/17 at 21:00 Dextrose (D50w Syringe) 50 ml Q15M PRN IV DECREASED GLUCOSE; Start 03/31/17 at 21:00 Glucagon (Glucagen) 1 mg Q15M PRN IM DECREASED GLUCOSE; Start 03/31/17 at 21: 00 Glucose 15 gm 15 gm Q15M PRN BUCCAL DECREASED GLUCOSE; Start 03/31/17 at 21:00 Meropenem/Sodium Chloride 50 ml @ 100 mls/hr Q12 IVPB Last administered on 08:42; Admin Dose 100 MLS/HR; Start 04/01/17 at 21:00 Linezolid (Zyvox 600mg/D5W (Pmx)) 300 ml @ 300 mls/hr Q12 IVPB Last administered on 04/03/17 09:22; Admin Dose 300 MLS/HR; Start 04/02/17 at 11: 30 MELO KANG NP Apr 03, 2017 12:00
[2017-04-03 14:00] VITALS: BP 102/60; RESP 16
--- NOTE | 2017-04-03 15:25 | PN ---
Date/Time of Note Date/Time of Note DATE: 04/03/17 TIME: 15:23 Assessment/Plan VTE Prophylaxis VTE Prophylaxis Intervention: SCD's Lines/Catheters [facility] PICC Line Central line still needed: Yes Urinary Cath still in place: No Assessment/Plan Chief Complaint/Hosp Course Assessment and plan 1. Acute renal insufficiency. Painter Supervisor following. Medications to be renally dosed. Monitor renal panel. 2. History of bladder cancer status post cystoprostatectomy and creation of ileal conduit with colonic diversion for fistula formation. Patient for outpatient management per urologist. 3. Recent history of polymicrobial UTI. Follow urine culture. Patient was placed on antibiotics on admission.Culture showing ESBL again. ID consult is following up. Continue with antibiotic regimen 4. Severe protein calorie malnutrition. Will restart patient on TPN. Dietitian did follow the patient. 5. Transaminitis. Follow-up on abdominal imaging 6. Abdominal wound. Wound care consult following. Now with wound VAC in place. Continue wound care. Surgeon following Disposition plan: Continue with antibiotics and wound care. Follow-up with consultants for discharge disposition. Will follow up with case management. Discussed plan of care with Dr. Tate Problems: Subjective 24 Hr Interval Summary Free Text/Dictation Comfortable at present. No signs or symptoms of distress noted Exam/Review of Systems Vital Signs Vitals Vital Signs Date Time Temp Pulse Resp B/P Pulse Ox O2 Delivery O2 Flow Rate FiO2 04/03/17 14:00 98.2 95 16 102/60 96 04/02/17 20:12 Room Air Intake and Output 04/02/17 04/02/17 04/03/17 15:00 23:00 07:00 Intake Total 210 ml 1520 ml 1200 ml Output Total 1650 ml 1600 ml Balance 210 ml -130 ml -400 ml Exam Constitutional: alert, frail, oriented Psych: nl mood/affect Head: normocephalic Neck: non-tender, supple Respiratory: clear to auscultation Cardiovascular: other (regular rate ) Gastrointestinal: other (Minimally tender. 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: FINANCIAL INVESTMENT MANAGER II-XII intact, nl mental status, nl speech Results Result Diagram: 04/03/17 0445 04/03/17 0445 Results 24 hrs Laboratory Tests Test 04/02/17 17:42 04/02/17 20:26 04/02/17 23:39 04/03/17 04:45 Bedside Glucose 118 173 122 White Blood Count 11.6 H Red Blood Count 3.78 L Hemoglobin 10.4 L Hematocrit 32.7 L Mean Corpuscular Volume 86.5 Mean Corpuscular Hemoglobin 27.5 L Mean Corpuscular Hemoglobin Concent 31.8 L Red Cell Distribution Width 14.7 H Platelet Count 334 Mean Platelet Volume 9.2 Neutrophils % 69.8 Lymphocytes % 21.7 Monocytes % 5.6 Eosinophils % 1.5 Basophils % 0.2 Nucleated Red Blood Cells % 0.0 Neutrophils # 8.1 H Lymphocytes # 2.5 Monocytes # 0.7 Eosinophils # 0.2 Basophils # 0.0 Nucleated Red Blood Cells # 0.0 Sodium Level 135 Potassium Level 4.3 Chloride Level 103 Carbon Dioxide Level 21 Anion Gap 15 Blood Urea Nitrogen 54 H Creatinine 1.63 H Glucose Level 132 Calcium Level 9.5 Phosphorus Level 3.5 Magnesium Level 1.6 L Test 04/03/17 05:50 04/03/17 12:13 Bedside Glucose 120 123 Medications Medications Current Medications Ondansetron HCl (Zofran Inj) 4 mg Q6H PRN IV NAUSEA AND/OR VOMITING; Start at 03:30 Morphine Sulfate (morphine) 2 mg Q4H PRN IV PAIN Last administered on 11:53; Admin Dose 2 MG; Start 03/30/17 at 03:30 Heparin Sodium (Porcine) (Heparin (5000 Units/0.5 ml)) 5,000 unit DAILY SC Last administered on 04/03/17 09:34; Admin Dose 5,000 UNIT; Start 03/30/17 at 09:00 Oxycodone/ Acetaminophen 1 tab 1 tab Q4H PRN PO PAIN; Start 03/30/17 at 06:00 Total Parenteral Nutrition (Tpn) 1,000 ml @ 70 mls/hr [id number] IV Last administered on 04/03/17 02:55; Admin Dose 70 MLS/HR; Start 03/31/17 at 15:00 Diagnostic Test (Pha) (Accu-Chek) 1 ea 02 XX ; Start 04/01/17 at 02:00 Insulin Glargine (Lantus) 10 unit HS SC Last administered on 04/02/17 20:32; Admin Dose 10 UNIT; Start 04/01/17 at 21:00 Insulin Aspart (Novolog Insulin Pen) NOVOLOG *MODERATE* ALGORI... Q6 SC Last administered on 04/02/17 06:25; Admin Dose 2 UNIT; Start 04/01/17 at 00:00 Miscellaneous Information 1 ea NOTE XX ; Start 03/31/17 at 21:00 Glucose (Glutose) 15 gm Q15M PRN PO DECREASED GLUCOSE; Start 03/31/17 at 21:00 Glucose (Glutose) 22.5 gm Q15M PRN PO DECREASED GLUCOSE; Start 03/31/17 at 21: 00 Dextrose (D50w Syringe) 25 ml Q15M PRN IV DECREASED GLUCOSE; Start 03/31/17 at 21:00 Dextrose (D50w Syringe) 50 ml Q15M PRN IV DECREASED GLUCOSE; Start 03/31/17 at 21:00 Glucagon (Glucagen) 1 mg Q15M PRN IM DECREASED GLUCOSE; Start 03/31/17 at 21: 00 Glucose 15 gm 15 gm Q15M PRN BUCCAL DECREASED GLUCOSE; Start 03/31/17 at 21:00 Meropenem/Sodium Chloride 50 ml @ 100 mls/hr Q12 IVPB Last administered on 08:42; Admin Dose 100 MLS/HR; Start 04/01/17 at 21:00 Linezolid (Zyvox 600mg/D5W (Pmx)) 300 ml @ 300 mls/hr Q12 IVPB Last administered on 04/03/17 09:22; Admin Dose 300 MLS/HR; Start 04/02/17 at 11: 30 ALLISON HAYWARD Apr 03, 2017 15:25
--- NOTE | 2017-04-03 16:39 | CONS ---
Date/Time of Note Date/Time of Note DATE: 04/03/17 TIME: 16:32 Assessment/Plan Assessment/Plan Additional Assessment/Plan 1. acute kidney injury Non oliguric - BUN/Cr - 54/1.63 - UO 3250ML/24 HRS 2. Hypomagnesium- resolved 3. H/o ESBL UTI 4.History of bladder cancer s/p TURBT, chemotherapy/radiation, urethral damage, chemo/radiation induced urinary and fecal incontinence. He underwent cystoprostatectomy with urinary diversion, ileal conduit, colonic diversion for fistula on last admission Plan: -pt had a full CKD work up done on last admission, no need to repeat it -Continue IV Abx meropenem, renally dose it- changed to 1 gram daily, zyvox added 600 mg IV BID -off IVF now, on TPN - Cr stable around 1.63 will continue to follow up Devin Drew/RN Consultation Date/Type/Reason Admit Date/Time Mar 30, 2017 at 02:24 Initial Consult Date 04/01/17 Type of Consultation: ID Referring Provider: ALLISON HAYWARD 24 HR Interval Summary Free Text/Dictation resting, eating food from home, family at bed side, denies any complaints at present, dw staff Constitutional: improved Detailed Summary Respiratory: no complaints Cardiovascular: no complaints Gastrointestinal: no complaints Genitourinary: no complaints Musculoskeletal: no complaints Exam/Review of Systems Vital Signs Vitals Vital Signs Date Time Temp Pulse Resp B/P Pulse Ox O2 Delivery O2 Flow Rate FiO2 04/03/17 14:00 98.2 95 16 102/60 96 04/02/17 20:12 Room Air Intake and Output 04/02/17 04/02/17 04/03/17 15:00 23:00 07:00 Intake Total 210 ml 1520 ml 1200 ml Output Total 1650 ml 1600 ml Balance 210 ml -130 ml -400 ml Exam Constitutional: alert, oriented Psych: nl mood/affect Respiratory: diminished breath sounds, normal air movement Cardiovascular: nl pulses, other (S1S2) Gastrointestinal: non-tender, soft Musculoskeletal: nl extremities to inspection Neurological: nl mental status, nl speech Results Result Diagram: 04/03/17 0445 04/03/17 0445 Results 24 hrs Laboratory Tests Test 04/02/17 17:42 04/02/17 20:26 04/02/17 23:39 04/03/17 04:45 Bedside Glucose 118 173 122 White Blood Count 11.6 H Red Blood Count 3.78 L Hemoglobin 10.4 L Hematocrit 32.7 L Mean Corpuscular Volume 86.5 Mean Corpuscular Hemoglobin 27.5 L Mean Corpuscular Hemoglobin Concent 31.8 L Red Cell Distribution Width 14.7 H Platelet Count 334 Mean Platelet Volume 9.2 Neutrophils % 69.8 Lymphocytes % 21.7 Monocytes % 5.6 Eosinophils % 1.5 Basophils % 0.2 Nucleated Red Blood Cells % 0.0 Neutrophils # 8.1 H Lymphocytes # 2.5 Monocytes # 0.7 Eosinophils # 0.2 Basophils # 0.0 Nucleated Red Blood Cells # 0.0 Sodium Level 135 Potassium Level 4.3 Chloride Level 103 Carbon Dioxide Level 21 Anion Gap 15 Blood Urea Nitrogen 54 H Creatinine 1.63 H Glucose Level 132 Calcium Level 9.5 Phosphorus Level 3.5 Magnesium Level 1.6 L Test 04/03/17 05:50 04/03/17 12:13 Bedside Glucose 120 123 Medications Medications Current Medications Ondansetron HCl (Zofran Inj) 4 mg Q6H PRN IV NAUSEA AND/OR VOMITING; Start at 03:30 Morphine Sulfate (morphine) 2 mg Q4H PRN IV PAIN Last administered on 11:53; Admin Dose 2 MG; Start 03/30/17 at 03:30 Heparin Sodium (Porcine) (Heparin (5000 Units/0.5 ml)) 5,000 unit DAILY SC Last administered on 04/03/17 09:34; Admin Dose 5,000 UNIT; Start 03/30/17 at 09:00 Oxycodone/ Acetaminophen 1 tab 1 tab Q4H PRN PO PAIN; Start 03/30/17 at 06:00 Total Parenteral Nutrition (Tpn) 1,000 ml @ 70 mls/hr [id number] IV Last administered on 04/03/17 02:55; Admin Dose 70 MLS/HR; Start 03/31/17 at 15:00 Diagnostic Test (Pha) (Accu-Chek) 1 ea 02 XX ; Start 04/01/17 at 02:00 Insulin Glargine (Lantus) 10 unit HS SC Last administered on 04/02/17 20:32; Admin Dose 10 UNIT; Start 04/01/17 at 21:00 Insulin Aspart (Novolog Insulin Pen) NOVOLOG *MODERATE* ALGORI... Q6 SC Last administered on 04/02/17 06:25; Admin Dose 2 UNIT; Start 04/01/17 at 00:00 Miscellaneous Information 1 ea NOTE XX ; Start 03/31/17 at 21:00 Glucose (Glutose) 15 gm Q15M PRN PO DECREASED GLUCOSE; Start 03/31/17 at 21:00 Glucose (Glutose) 22.5 gm Q15M PRN PO DECREASED GLUCOSE; Start 03/31/17 at 21: 00 Dextrose (D50w Syringe) 25 ml Q15M PRN IV DECREASED GLUCOSE; Start 03/31/17 at 21:00 Dextrose (D50w Syringe) 50 ml Q15M PRN IV DECREASED GLUCOSE; Start 03/31/17 at 21:00 Glucagon (Glucagen) 1 mg Q15M PRN IM DECREASED GLUCOSE; Start 03/31/17 at 21: 00 Glucose 15 gm 15 gm Q15M PRN BUCCAL DECREASED GLUCOSE; Start 03/31/17 at 21:00 Meropenem/Sodium Chloride 50 ml @ 100 mls/hr Q12 IVPB Last administered on 08:42; Admin Dose 100 MLS/HR; Start 04/01/17 at 21:00 Linezolid (Zyvox 600mg/D5W (Pmx)) 300 ml @ 300 mls/hr Q12 IVPB Last administered on 04/03/17 09:22; Admin Dose 300 MLS/HR; Start 04/02/17 at 11: 30 MARSHAL SLATER Apr 03, 2017 16:39 MARSHAL SLATER Apr 03, 2017 16:39
--- NOTE | 2017-04-03 18:18 | PN ---
Date/Time of Note Date/Time of Note DATE: 04/02/17 TIME: 19:15 Assessment/Plan Lines/Catheters IV Catheter Type (from [facility]): PICC Line Tomas in Place (from [facility]): No Assessment/Plan Chief Complaint/Hosp Course 1. Multiple ostomies and ileal conduit: all ostomies pink and moist; s/p multiple Perforated viscous w small bowel proximal looped ostomy (minimum 6 month wait prior to considering attempting abdominal re-exploration ) -continue ostomy care -continue oral feed, TPN -continue local abdominal wound care-w vac -oral diet as tolerated with protein shakes and probiotics -oob/ambulate -urology 2. UTI w +cultures -abx/antimicrobials per sensitivity -frequent bladder emptying/cath care -urology 3. Malnutrition: tolerating solid diet; no nausea with increase of loperamide -continue tpn -vitamins, probiotics, and nutritional supplements 4. MANA: -judicious fluids -limit nephrotoxic meds 5. Bladder cancer: s/p chemo/radiation, s/p cystoprostatectomy with urinary diversion -per oncology/urology 6. Normocytic hypochromic anemia: no overt bleed noted -monitor -transfuse as needed -further workup per medical team Thank you, Late entry 04/02 Problems: Subjective 24 Hr Interval Summary Weak. No f/c. No cp/sob. No cough. No craig/dizzy/visual or neuro changes. Min pain. Loose stools per ostomy. Rectal discharge persists. Exam/Review of Systems Vital Signs Vitals Vital Signs Date Time Temp Pulse Resp B/P Pulse Ox O2 Delivery O2 Flow Rate FiO2 04/03/17 14:00 98.2 95 16 102/60 96 04/02/17 20:12 Room Air Intake and Output 04/02/17 04/02/17 04/03/17 15:00 23:00 07:00 Intake Total 210 ml 1520 ml 1200 ml Output Total 1650 ml 1600 ml Balance 210 ml -130 ml -400 ml Exam Free Text/Dictation Constitutional: alert, frail, oriented Psych: nl mood/affect, no complaints Head: atraumatic, normocephalic Eyes: nl lids, nl sclera ENMT: mucosa pink and moist, nl nasal mucosa & septum Neck: non-tender, supple Respiratory: normal air movement Cardiovascular: nl pulses, regular rate and rhythm Gastrointestinal: non-tender, other (ileostomy, colostomy, urostomy), soft, wound Genitourinary - Male: nl penis, nl scrotum Musculoskeletal: nl extremities to inspection, nl gait and stance Extremities: normal pulses, No edema Neurological: nl mental status, nl speech Skin: nl turgor, rash or lesions Results Result Diagram: 04/03/17 0445 04/03/17 0445 OPAL CRUZ MD Apr 03, 2017 18:17
--- NOTE | 2017-04-03 18:18 | PN ---
Date/Time of Note Date/Time of Note DATE: 04/03/17 TIME: 18:18 Assessment/Plan Lines/Catheters IV Catheter Type (from [facility]): PICC Line Tomas in Place (from [facility]): No Assessment/Plan Chief Complaint/Hosp Course 1. Multiple ostomies and ileal conduit: all ostomies pink and moist; s/p multiple Perforated viscous w small bowel proximal looped ostomy (minimum 6 month wait prior to considering attempting abdominal re-exploration ) -continue ostomy care -continue oral feed, TPN -continue local abdominal wound care-w vac -oral diet as tolerated with protein shakes and probiotics -oob/ambulate -urology 2. UTI w +cultures -abx/antimicrobials per sensitivity -frequent bladder emptying/cath care -urology 3. Malnutrition: tolerating solid diet; no nausea with increase of loperamide -continue tpn -vitamins, probiotics, and nutritional supplements 4. MANA: -judicious fluids -limit nephrotoxic meds 5. Bladder cancer: s/p chemo/radiation, s/p cystoprostatectomy with urinary diversion -per oncology/urology 6. Normocytic hypochromic anemia: no overt bleed noted -monitor -transfuse as needed -further workup per medical team Thank you, Problems: Subjective 24 Hr Interval Summary Weak. No f/c. No cp/sob. No cough. No craig/dizzy/visual or neuro changes. Min pain. Loose stools per ostomy. Rectal discharge persists. Exam/Review of Systems Vital Signs Vitals Vital Signs Date Time Temp Pulse Resp B/P Pulse Ox O2 Delivery O2 Flow Rate FiO2 04/03/17 14:00 98.2 95 16 102/60 96 04/02/17 20:12 Room Air Intake and Output 04/02/17 04/02/17 04/03/17 15:00 23:00 07:00 Intake Total 210 ml 1520 ml 1200 ml Output Total 1650 ml 1600 ml Balance 210 ml -130 ml -400 ml Exam Free Text/Dictation Constitutional: alert, frail, oriented Psych: nl mood/affect, no complaints Head: atraumatic, normocephalic Eyes: nl lids, nl sclera ENMT: mucosa pink and moist, nl nasal mucosa & septum Neck: non-tender, supple Respiratory: normal air movement Cardiovascular: nl pulses, regular rate and rhythm Gastrointestinal: non-tender, other (ileostomy, colostomy, urostomy), soft, wound Genitourinary - Male: nl penis, nl scrotum Musculoskeletal: nl extremities to inspection, nl gait and stance Extremities: normal pulses, No edema Neurological: nl mental status, nl speech Skin: nl turgor, rash or lesions Results Result Diagram: 04/03/17 0445 04/03/17 0445 OPAL CRUZ MD Apr 03, 2017 18:18
[2017-04-03 19:59] VITALS: BP 100/55; PULSE 78; RESP 18
[2017-04-03] MEDS: INSULIN GLARGINE [LANtus] 3 ML PEN SC SCH (21:14)
[2017-04-04] MEDS: ACCU-CHEK XX SCH (01:10)
[2017-04-04] MEDS: morphine 2 MG INJ IV PRN ×4 (05:25→20:52)
[2017-04-04] MEDS: INSULIN ASPART [NOVOLOG] 3 ML PEN SC SCH ×3 (05:28→17:47)
[2017-04-04 06:18] LABS: BASOPHILS % 0.2 % (0.0-2.0); EOSINOPHILS # 0.2 10^3/ul (0.0-0.5); EOSINOPHILS % 1.3 % (0.0-7.0); HEMATOCRIT 32.6 % (42.0-52.0); HEMOGLOBIN 10.4 g/dl (14.0-18.0); LYMPHOCYTES # 2.5 10^3/ul (0.8-2.9); LYMPHOCYTES % 19.7 % (15.0-51.0); MEAN CORPUSCULAR HEMOGLOBIN 27.4 pg (29.0-33.0); MEAN CORPUSCULAR HGB CONC 31.9 g/dl (32.0-37.0); MEAN PLATELET VOLUME 9.7 fl (7.4-10.4); MONOCYTE # 0.7 10^3/ul (0.3-0.9); MONOCYTES % 5.5 % (0.0-11.0); NEUTROPHIL # 9.1 10^3/ul (1.6-7.5); NEUTROPHILS % 72.3 % (39.0-77.0); PLATELET COUNT 339 10^3/UL (140-415); RED BLOOD COUNT 3.79 10^6/ul (4.70-6.10); RED CELL DISTRIBUTION WIDTH 14.8 % (11.5-14.5); WHITE BLOOD COUNT 12.6 10^3/ul (4.8-10.8)
[2017-04-04 06:51] LABS: MAGNESIUM 1.7 mg/dl (1.7-2.5); PHOSPHORUS 3.6 mg/dl (2.5-4.9)
[2017-04-04 07:00] VITALS: BP 102/68; RESP 18
[2017-04-04 07:11] LABS: CALCIUM 9.7 mg/dl (8.4-10.2); CREATININE 1.61 mg/dl (0.61-1.24)
[2017-04-04] MEDS: LINEZOLID 600 MG/D5W (PMX) 300 ML IVPB SCH ×2 (09:10→21:52)
[2017-04-04] MEDS: MEROPENEM 1 GM/50ML(PMX) 50 ML IVPB SCH ×2 (09:10→20:45)
[2017-04-04] MEDS: HEPARIN 5,000 UNIT/0.5 ML VIAL SC SCH (09:21)
[2017-04-04] MEDS: TPN 1,000 ML IV SCH ×2 (11:40→22:18)
--- NOTE | 2017-04-04 11:41 | PN ---
Date/Time of Note Date/Time of Note DATE: 04/04/17 TIME: 11:40 Assessment/Plan VTE Prophylaxis VTE Prophylaxis Intervention: heparin, SCD's Lines/Catheters IV Catheter Type (from [facility]): PICC Line Central line still needed: Yes Urinary Cath still in place: No Assessment/Plan Chief Complaint/Hosp Course Assessment and plan 1. Acute renal insufficiency. Web Mobile Designer following. Medications to be renally dosed. Monitor renal panel. 2. History of bladder cancer status post cystoprostatectomy and creation of ileal conduit with colonic diversion for fistula formation. Patient for outpatient management per urologist. 3. Recent history of polymicrobial UTI. Follow urine culture. Patient was placed on antibiotics on admission.Culture showing ESBL again. ID consult is following up. Continue with antibiotic regimen 4. Severe protein calorie malnutrition. Will restart patient on TPN. Dietitian did follow the patient. 5. Transaminitis. Follow-up on abdominal imaging 6. Abdominal wound. Wound care consult following. Now with wound VAC in place. Continue wound care. Surgeon following Disposition plan: Continue with antibiotics and wound care. Discussed case with daughter. Continue with surgeon recommendations. d/c when cleared by consultants Discussed plan of care with Dr. Tate Problems: Subjective 24 Hr Interval Summary Free Text/Dictation Comfortable at present. No specific complaints per Exam/Review of Systems Vital Signs Vitals Vital Signs Date Time Temp Pulse Resp B/P Pulse Ox O2 Delivery O2 Flow Rate FiO2 04/04/17 07:00 98.3 85 18 102/68 99 04/03/17 20:53 Nasal Cannula 2.0 Intake and Output 04/03/17 04/03/17 04/04/17 15:00 23:00 07:00 Intake Total 350 ml 2200 ml 1000 ml Output Total 3600 ml 1600 ml Balance 350 ml -1400 ml -600 ml Exam Constitutional: alert, frail, oriented Psych: nl mood/affect Head: normocephalic Neck: non-tender, supple Respiratory: clear to auscultation Cardiovascular: other (regular rate ) Gastrointestinal: other (Minimally tender. Ileostomy bag in place.), soft. wound vac in place Musculoskeletal: nl extremities to inspection Neurological: ADMISSION SPECIALIST II-XII intact, nl mental status, nl speech Results Result Diagram: 04/04/17 0459 04/04/17 0457 Results 24 hrs Laboratory Tests Test 04/03/17 12:13 04/03/17 18:27 04/03/17 21:11 04/03/17 23:06 Bedside Glucose 123 145 122 136 Test 04/04/17 04:57 04/04/17 04:58 04/04/17 04:59 04/04/17 05:28 Sodium Level 136 Potassium Level 4.0 Chloride Level 104 Carbon Dioxide Level 21 Anion Gap 15 Blood Urea Nitrogen 54 H Creatinine 1.61 H Glucose Level 100 Calcium Level 9.7 Phosphorus Level 3.6 Magnesium Level 1.7 White Blood Count 12.6 H Red Blood Count 3.79 L Hemoglobin 10.4 L Hematocrit 32.6 L Mean Corpuscular Volume 86.0 Mean Corpuscular Hemoglobin 27.4 L Mean Corpuscular Hemoglobin Concent 31.9 L Red Cell Distribution Width 14.8 H Platelet Count 339 Mean Platelet Volume 9.7 Neutrophils % 72.3 Lymphocytes % 19.7 Monocytes % 5.5 Eosinophils % 1.3 Basophils % 0.2 Nucleated Red Blood Cells % 0.0 Neutrophils # 9.1 H Lymphocytes # 2.5 Monocytes # 0.7 Eosinophils # 0.2 Basophils # 0.0 Nucleated Red Blood Cells # 0.0 Bedside Glucose 97 Medications Medications Current Medications Ondansetron HCl (Zofran Inj) 4 mg Q6H PRN IV NAUSEA AND/OR VOMITING; Start at 03:30 Morphine Sulfate (morphine) 2 mg Q4H PRN IV PAIN Last administered on 05:25; Admin Dose 2 MG; Start 03/30/17 at 03:30 Heparin Sodium (Porcine) (Heparin (5000 Units/0.5 ml)) 5,000 unit DAILY SC Last administered on 04/04/17 09:21; Admin Dose 5,000 UNIT; Start 03/30/17 at 09:00 Oxycodone/ Acetaminophen 1 tab 1 tab Q4H PRN PO PAIN; Start 03/30/17 at 06:00 Total Parenteral Nutrition (Tpn) 1,000 ml @ 70 mls/hr [id number] IV Last administered on 04/03/17 18:25; Admin Dose 70 MLS/HR; Start 03/31/17 at 15:00 Diagnostic Test (Pha) (Accu-Chek) 1 ea 02 XX ; Start 04/01/17 at 02:00 Insulin Glargine (Lantus) 10 unit HS SC Last administered on 04/03/17 21:14; Admin Dose 10 UNIT; Start 04/01/17 at 21:00 Insulin Aspart (Novolog Insulin Pen) NOVOLOG *MODERATE* ALGORI... Q6 SC Last administered on 04/03/17 18:41; Admin Dose 2 UNIT; Start 04/01/17 at 00:00 Miscellaneous Information 1 ea NOTE XX ; Start 03/31/17 at 21:00 Glucose (Glutose) 15 gm Q15M PRN PO DECREASED GLUCOSE; Start 03/31/17 at 21:00 Glucose (Glutose) 22.5 gm Q15M PRN PO DECREASED GLUCOSE; Start 03/31/17 at 21: 00 Dextrose (D50w Syringe) 25 ml Q15M PRN IV DECREASED GLUCOSE; Start 03/31/17 at 21:00 Dextrose (D50w Syringe) 50 ml Q15M PRN IV DECREASED GLUCOSE; Start 03/31/17 at 21:00 Glucagon (Glucagen) 1 mg Q15M PRN IM DECREASED GLUCOSE; Start 03/31/17 at 21: 00 Glucose 15 gm 15 gm Q15M PRN BUCCAL DECREASED GLUCOSE; Start 03/31/17 at 21:00 Meropenem/Sodium Chloride 50 ml @ 100 mls/hr Q12 IVPB Last administered on 09:10; Admin Dose 100 MLS/HR; Start 04/01/17 at 21:00 Linezolid (Zyvox 600mg/D5W (Pmx)) 300 ml @ 300 mls/hr Q12 IVPB Last administered on 04/04/17 09:10; Admin Dose 300 MLS/HR; Start 04/02/17 at 11: 30 ALLISON HAYWARD Apr 04, 2017 11:41
--- NOTE | 2017-04-04 13:46 | PN ---
Date/Time of Note Date/Time of Note DATE: 04/04/17 TIME: 13:41 Assessment/Plan VTE Prophylaxis VTE Prophylaxis Intervention: other Lines/Catheters IV Catheter Type (from [facility]): PICC Line Central line still needed: Yes Urinary Cath still in place: No Assessment/Plan Assessment/Plan 1. acute kidney injury Non oliguric - BUN/Cr - 54/1.61 - UO 5200ML/24 HRS 2. Hypomagnesium- resolved 3. H/o ESBL UTI 4.history of bladder cancer s/p TURBT, chemotherapy/radiation, urethral damage, chemo/radiation induced urinary and fecal incontinence. He underwent cystoprostatectomy with urinary diversion, ileal conduit, colonic diversion for fistula on last admission Plan: pt had a full CKD work up done on last admission, no need to repeat it Continue IV Abx meropenem, renally dose it- changed to 1 gram daily, zyvox added 600 mg IV BID off IVF now, on TPN - Cr stable around 1.63 will continue to follow up Dw dr Drew/RN Subjective 24 Hr Interval Summary Free Text/Dictation AFEBRILE,, Cr trended down, on TPN, Mag wnl, family at bed side - all Qs answered. Respiratory: no complaints Gastrointestinal: no complaints Genitourinary: no complaints Musculoskeletal: no complaints Exam/Review of Systems Vital Signs Vitals Vital Signs Date Time Temp Pulse Resp B/P Pulse Ox O2 Delivery O2 Flow Rate FiO2 04/04/17 07:00 98.3 85 18 102/68 99 04/03/17 20:53 Nasal Cannula 2.0 Intake and Output 04/03/17 04/03/17 04/04/17 15:00 23:00 07:00 Intake Total 350 ml 2200 ml 1000 ml Output Total 3600 ml 1600 ml Balance 350 ml -1400 ml -600 ml Exam Constitutional: alert, oriented, other (cachexic) Psych: nl mood/affect Respiratory: diminished breath sounds Cardiovascular: nl pulses, other (s1s2) Gastrointestinal: non-tender, soft Musculoskeletal: nl extremities to inspection Extremities: normal pulses Neurological: nl mental status, nl speech Results Result Diagram: 04/04/17 0459 04/04/17 0457 Results 24 hrs Laboratory Tests Test 04/03/17 18:27 04/03/17 21:11 04/03/17 23:06 04/04/17 04:57 Bedside Glucose 145 122 136 Sodium Level 136 Potassium Level 4.0 Chloride Level 104 Carbon Dioxide Level 21 Anion Gap 15 Blood Urea Nitrogen 54 H Creatinine 1.61 H Glucose Level 100 Calcium Level 9.7 Test 04/04/17 04:58 04/04/17 04:59 04/04/17 05:28 04/04/17 12:44 Phosphorus Level 3.6 Magnesium Level 1.7 White Blood Count 12.6 H Red Blood Count 3.79 L Hemoglobin 10.4 L Hematocrit 32.6 L Mean Corpuscular Volume 86.0 Mean Corpuscular Hemoglobin 27.4 L Mean Corpuscular Hemoglobin Concent 31.9 L Red Cell Distribution Width 14.8 H Platelet Count 339 Mean Platelet Volume 9.7 Neutrophils % 72.3 Lymphocytes % 19.7 Monocytes % 5.5 Eosinophils % 1.3 Basophils % 0.2 Nucleated Red Blood Cells % 0.0 Neutrophils # 9.1 H Lymphocytes # 2.5 Monocytes # 0.7 Eosinophils # 0.2 Basophils # 0.0 Nucleated Red Blood Cells # 0.0 Bedside Glucose 97 143 Medications Medications Current Medications Ondansetron HCl (Zofran Inj) 4 mg Q6H PRN IV NAUSEA AND/OR VOMITING; Start at 03:30 Morphine Sulfate (morphine) 2 mg Q4H PRN IV PAIN Last administered on 11:40; Admin Dose 2 MG; Start 03/30/17 at 03:30 Heparin Sodium (Porcine) (Heparin (5000 Units/0.5 ml)) 5,000 unit DAILY SC Last administered on 04/04/17 09:21; Admin Dose 5,000 UNIT; Start 03/30/17 at 09:00 Oxycodone/ Acetaminophen 1 tab 1 tab Q4H PRN PO PAIN; Start 03/30/17 at 06:00 Total Parenteral Nutrition (Tpn) 1,000 ml @ 70 mls/hr [id number] IV Last administered on 04/04/17 11:40; Admin Dose 70 MLS/HR; Start 03/31/17 at 15:00 Diagnostic Test (Pha) (Accu-Chek) 1 ea 02 XX ; Start 04/01/17 at 02:00 Insulin Glargine (Lantus) 10 unit HS SC Last administered on 10/28/17at 21:14; Admin Dose 10 UNIT; Start 04/01/17 at 21:00 Miscellaneous Information 1 ea NOTE XX ; Start 03/31/17 at 21:00 Glucose (Glutose) 15 gm Q15M PRN PO DECREASED GLUCOSE; Start 03/31/17 at 21:00 Glucose (Glutose) 22.5 gm Q15M PRN PO DECREASED GLUCOSE; Start 03/31/17 at 21: 00 Dextrose (D50w Syringe) 25 ml Q15M PRN IV DECREASED GLUCOSE; Start 03/31/17 at 21:00 Dextrose (D50w Syringe) 50 ml Q15M PRN IV DECREASED GLUCOSE; Start 03/31/17 at 21:00 Glucagon (Glucagen) 1 mg Q15M PRN IM DECREASED GLUCOSE; Start 03/31/17 at 21: 00 Glucose 15 gm 15 gm Q15M PRN BUCCAL DECREASED GLUCOSE; Start 03/31/17 at 21:00 Meropenem/Sodium Chloride 50 ml @ 100 mls/hr Q12 IVPB Last administered on 09:10; Admin Dose 100 MLS/HR; Start 04/01/17 at 21:00 Linezolid (Zyvox 600mg/D5W (Pmx)) 300 ml @ 300 mls/hr Q12 IVPB Last administered on 04/04/17 09:10; Admin Dose 300 MLS/HR; Start 04/02/17 at 11: 30 MARSHAL SLATER Apr 04, 2017 13:46
[2017-04-04 14:00] VITALS: BP 110/65; RESP 18
--- NOTE | 2017-04-04 19:04 | CONS ---
Date/Time of Note Date/Time of Note DATE: 04/04/17 TIME: 19:00 Assessment/Plan Assessment/Plan Chief Complaint/Hosp Course ID PROGRESS NOTE CURRENT ABX: DAY # 6 => Zyvox + Merrem 24H INTERVAL SUMMARY * doing well, no fevers, VSS, WBC up * Discussed w/RN who reports daughter requesting wound care consult for leaking ostomy sites irritating skin -> moises changed the nephrostomy and ileostomy dressing/colostomy bag PHYSICAL EXAMINATION: GENERAL: Frail, cachectic M, lethargic, awakens, A/A/O -> VSS, no fevers, NAD HEENT: Bilateral temporal wasting NECK: Supple, full ROM CHEST: Equal chest rise bilaterally, without dyspnea on room air CV: Radial pulse RRR ABD: Soft, colostomy, ileostomy conduit : Deferred, no FC EXT: Warm, no C/C/E, ambulatory moves all extremities SKIN: No rash, no diaphoresis ID ASSESSMENT 66 yo M w/ PMHx bladder cancer re-admitted with: 1. SIS w/ low grade temps 99.0+ range + Leukocytosis 2/2 Recurrent complicated urinary tract infection. * 03/30/17 BCx (-) * 03/30/17 URINE CULTURE Final * Organism 1 ESCHERICHIA COLI (ESBL) 10,000 - 20,000 CFU/ml * Organism 2 ENTEROCOCCUS SPECIES >100,000 CFU/ml 2. History of perforated viscus repair with multiple pelvic abscess drainage * s/p 01/05/18 Perforated viscous with leak s/p ex lap, extensive lysis adhesions , small bowel proximal looped ostomy 01/05/17 * Colostomy state=> Stable * Open ABD wound => local wound care treatment 3. Bladder/Prostate Cancer * s/p chemotherapy/radiation where he sustained urethral damage as well as fecal and urinary incontinence as a result of chemo/radiation treatment. * s/p cystoprostatectomy with urinary diversion prior admission * Ileostomy conduit w/pink stoma 4. Acute renal failure=> Hx of obstructive uropathy w/bilateral JJ stents prior admission * CT of the abdomen and pelvis revealed mild bilateral hydronephrosis and bilateral ureteral stents. 5. Generalized weakness w/debility + cachexia w/ hypoalbuminemia: malnutrition + failure to thrive * TPN dependent 6. Microcytic anemia: 2/2 chronic disease + chemo/radiation +/- post-surgical; h/h stable 7. Transaminitis 8. Osteoarthritis: DJD spine (-)MRSA Nares Screen CURRENT ABX: DAY # 6 => Zyvox + Merrem ID RECOMMENDATIONS 1. Continue Current ABX for polymicrobial UTI => anticipate minimal 10 days (hx of uretal stents) 2. Per surgery notes prior admission, the plan was to anticipate TPN 6 mos ? Possible repeat exploration future? 3. Continue local ABD wound care -> wound care consult, ostomy sites leaking w/ local skin irritation . . Problems: Consultation Date/Type/Reason Admit Date/Time Mar 30, 2017 at 02:24 Initial Consult Date 04/01/17 Type of Consultation: ID Referring Provider: ALLISON HAYWARD Exam/Review of Systems Vital Signs Vitals Vital Signs Date Time Temp Pulse Resp B/P Pulse Ox O2 Delivery O2 Flow Rate FiO2 04/04/17 14:00 97.8 86 18 110/65 95 04/03/17 20:53 Nasal Cannula 2.0 Intake and Output 04/03/17 04/03/17 04/04/17 15:00 23:00 07:00 Intake Total 350 ml 2200 ml 1000 ml Output Total 3600 ml 1600 ml Balance 350 ml -1400 ml -600 ml Results Result Diagram: 04/04/17 0459 04/04/17 0457 Results 24 hrs Laboratory Tests Test 04/03/17 21:11 04/03/17 23:06 04/04/17 04:57 04/04/17 04:58 Bedside Glucose 122 136 Sodium Level 136 Potassium Level 4.0 Chloride Level 104 Carbon Dioxide Level 21 Anion Gap 15 Blood Urea Nitrogen 54 H Creatinine 1.61 H Glucose Level 100 Calcium Level 9.7 Phosphorus Level 3.6 Magnesium Level 1.7 Test 04/04/17 04:59 04/04/17 05:28 04/04/17 12:44 04/04/17 17:45 White Blood Count 12.6 H Red Blood Count 3.79 L Hemoglobin 10.4 L Hematocrit 32.6 L Mean Corpuscular Volume 86.0 Mean Corpuscular Hemoglobin 27.4 L Mean Corpuscular Hemoglobin Concent 31.9 L Red Cell Distribution Width 14.8 H Platelet Count 339 Mean Platelet Volume 9.7 Neutrophils % 72.3 Lymphocytes % 19.7 Monocytes % 5.5 Eosinophils % 1.3 Basophils % 0.2 Nucleated Red Blood Cells % 0.0 Neutrophils # 9.1 H Lymphocytes # 2.5 Monocytes # 0.7 Eosinophils # 0.2 Basophils # 0.0 Nucleated Red Blood Cells # 0.0 Bedside Glucose 97 143 130 Medications Medications Current Medications Ondansetron HCl (Zofran Inj) 4 mg Q6H PRN IV NAUSEA AND/OR VOMITING; Start at 03:30 Morphine Sulfate (morphine) 2 mg Q4H PRN IV PAIN Last administered on 16:09; Admin Dose 2 MG; Start 03/30/17 at 03:30 Heparin Sodium (Porcine) (Heparin (5000 Units/0.5 ml)) 5,000 unit DAILY SC Last administered on 04/04/17 09:21; Admin Dose 5,000 UNIT; Start 03/30/17 at 09:00 Oxycodone/ Acetaminophen 1 tab 1 tab Q4H PRN PO PAIN; Start 03/30/17 at 06:00 Total Parenteral Nutrition (Tpn) 1,000 ml @ 70 mls/hr [id number] IV Last administered on 04/04/17 11:40; Admin Dose 70 MLS/HR; Start 03/31/17 at 15:00 Diagnostic Test (Pha) (Accu-Chek) 1 ea 02 XX ; Start 04/01/17 at 02:00 Insulin Glargine (Lantus) 10 unit HS SC Last administered on 04/03/17 21:14; Admin Dose 10 UNIT; Start 04/01/17 at 21:00 Miscellaneous Information 1 ea NOTE XX ; Start 03/31/17 at 21:00 Glucose (Glutose) 15 gm Q15M PRN PO DECREASED GLUCOSE; Start 03/31/17 at 21:00 Glucose (Glutose) 22.5 gm Q15M PRN PO DECREASED GLUCOSE; Start 03/31/17 at 21: 00 Dextrose (D50w Syringe) 25 ml Q15M PRN IV DECREASED GLUCOSE; Start 03/31/17 at 21:00 Dextrose (D50w Syringe) 50 ml Q15M PRN IV DECREASED GLUCOSE; Start 03/31/17 at 21:00 Glucagon (Glucagen) 1 mg Q15M PRN IM DECREASED GLUCOSE; Start 03/31/17 at 21: 00 Glucose 15 gm 15 gm Q15M PRN BUCCAL DECREASED GLUCOSE; Start 03/31/17 at 21:00 Meropenem/Sodium Chloride 50 ml @ 100 mls/hr Q12 IVPB Last administered on 09:10; Admin Dose 100 MLS/HR; Start 04/01/17 at 21:00 Linezolid (Zyvox 600mg/D5W (Pmx)) 300 ml @ 300 mls/hr Q12 IVPB Last administered on 04/04/17 09:10; Admin Dose 300 MLS/HR; Start 04/02/17 at 11: 30 MELO KANG NP Apr 04, 2017 19:04
[2017-04-04 19:30] VITALS: BP 101/62; RESP 19
[2017-04-04] MEDS: INSULIN GLARGINE [LANtus] 3 ML PEN SC SCH (20:48)
[2017-04-05] MEDS: morphine 2 MG INJ IV PRN ×5 (01:35→21:42)
[2017-04-05] MEDS: ACCU-CHEK XX SCH (02:00)
[2017-04-05] MEDS: TPN 1,000 ML IV SCH ×2 (04:17→17:54)
[2017-04-05 05:21] LABS: BASOPHILS % 0.2 % (0.0-2.0); EOSINOPHILS # 0.1 10^3/ul (0.0-0.5); EOSINOPHILS % 1.1 % (0.0-7.0); HEMATOCRIT 31.7 % (42.0-52.0); HEMOGLOBIN 10.1 g/dl (14.0-18.0); LYMPHOCYTES # 2.4 10^3/ul (0.8-2.9); LYMPHOCYTES % 19.6 % (15.0-51.0); MEAN CORPUSCULAR HEMOGLOBIN 27.5 pg (29.0-33.0); MEAN CORPUSCULAR HGB CONC 31.9 g/dl (32.0-37.0); MEAN CORPUSCULAR VOLUME 86.4 fl (82.0-101.0); MEAN PLATELET VOLUME 9.1 fl (7.4-10.4); MONOCYTE # 0.7 10^3/ul (0.3-0.9); MONOCYTES % 5.3 % (0.0-11.0); NEUTROPHIL # 8.9 10^3/ul (1.6-7.5); NEUTROPHILS % 73.1 % (39.0-77.0); PLATELET COUNT 287 10^3/UL (140-415); RED BLOOD COUNT 3.67 10^6/ul (4.70-6.10); RED CELL DISTRIBUTION WIDTH 14.9 % (11.5-14.5); WHITE BLOOD COUNT 12.2 10^3/ul (4.8-10.8)
[2017-04-05 05:45] LABS: CALCIUM 9.4 mg/dl (8.4-10.2); CREATININE 1.75 mg/dl (0.61-1.24); POTASSIUM 4.3 mmol/L (3.5-5.1)
[2017-04-05 05:49] LABS: MAGNESIUM 1.8 mg/dl (1.7-2.5); PHOSPHORUS 3.5 mg/dl (2.5-4.9)
[2017-04-05 08:20] VITALS: BP 102/60; PULSE 78
[2017-04-05] MEDS: INSULIN ASPART [NOVOLOG] 3 ML PEN SC SCH (08:45)
[2017-04-05] MEDS: MEROPENEM 1 GM/50ML(PMX) 50 ML IVPB SCH ×2 (09:30→20:31)
[2017-04-05] MEDS: HEPARIN 5,000 UNIT/0.5 ML VIAL SC SCH (09:50)
[2017-04-05] MEDS: LINEZOLID 600 MG/D5W (PMX) 300 ML IVPB SCH ×2 (10:26→21:34)
--- NOTE | 2017-04-05 11:44 | PN ---
Date/Time of Note Date/Time of Note DATE: 04/05/17 TIME: 11:43 Assessment/Plan VTE Prophylaxis VTE Prophylaxis Intervention: heparin Lines/Catheters IV Catheter Type (from [facility]): PICC Line Central line still needed: Yes Urinary Cath still in place: No Assessment/Plan Chief Complaint/Hosp Course 1. Complicated urinary tract infection with polymicrobial's including E. coli ESBL. Continue antimicrobials as per infectious diseases. 2. Acute nonoliguric kidney injury. Etiology unclear. The patient being followed by nephrology. Use nephrotoxic drugs with caution. 3. Bladder cancer. Status post radical cystoprostatectomy and creation of ileal conduit with colonic diversion for fistula formation. 4. Status post perforated viscus repair complicated by intra-abdominal abscess requiring CT-guided drainage on previous admission. The patient has an abdominal wound vac in place. Being followed by surgery. 5. Severe protein calorie malnutrition. Patient on TPN. The patient on a mechanical soft diet. 6. Normocytic anemia. Etiology unclear. Probably anemia of chronic disease. 7. Fluids, electrolytes, and nutrition. TPN. Mechanical soft diet. 8. DVT prophylaxis. Subcutaneous heparin. 9. Plan. Continue antimicrobials. Await further recommendations from consultants. Case discussed with Dr. Baez. Problems: Subjective 24 Hr Interval Summary Free Text/Dictation Complains of minimal pain. Remains afebrile. Exam/Review of Systems Vital Signs Vitals Vital Signs Date Time Temp Pulse Resp B/P Pulse Ox O2 Delivery O2 Flow Rate FiO2 04/05/17 08:20 98.7 78 102/60 100 Room Air 04/04/17 19:30 19 04/03/17 20:53 2.0 Intake and Output 04/04/17 04/04/17 04/05/17 15:00 23:00 07:00 Intake Total 1050 ml 1570 ml 770 ml Output Total 2400 ml 1600 ml Balance 1050 ml -830 ml -830 ml Exam General:, Thin, frail looking 66 year-old male lying in bed in no apparent distress. HEENT: Normocephalic, atraumatic. Eyes: Anicteric sclerae, conjunctivae clear. ENT: Nasal septum midline, oral mucosa moist. Neck supple, no JVD noticed. Respiratory: Bilaterally diminished breath sounds. No use of accessory muscles of respiration. No adventitious breath sounds. Cardiovascular: S1, S2 heard. No murmurs or gallops. Abdomen: Soft, nontender, and nondistended. Abdominal wall wound Vac. Ileostomy draining light brown liquid output (less amount). Colostomy pink bud moist. Ileal conduit. Genitourinary: Deferred. Extremities: No cyanosis, no clubbing, no edema. Peripheral pulses palpable. Neurologic: Cranial nerves II through XII grossly intact. The patient is awake, alert, and oriented. Skin: Normal skin turgor. No skin rashes. Results Result Diagram: 04/05/17 04504/05/17 0451 Results 24 hrs Laboratory Tests Test 04/04/17 12:44 04/04/17 17:45 04/04/17 20:48 04/05/17 04:51 Bedside Glucose 143 130 154 White Blood Count 12.2 H Red Blood Count 3.67 L Hemoglobin 10.1 L Hematocrit 31.7 L Mean Corpuscular Volume 86.4 Mean Corpuscular Hemoglobin 27.5 L Mean Corpuscular Hemoglobin Concent 31.9 L Red Cell Distribution Width 14.9 H Platelet Count 287 Mean Platelet Volume 9.1 Neutrophils % 73.1 Lymphocytes % 19.6 Monocytes % 5.3 Eosinophils % 1.1 Basophils % 0.2 Nucleated Red Blood Cells % 0.0 Neutrophils # 8.9 H Lymphocytes # 2.4 Monocytes # 0.7 Eosinophils # 0.1 Basophils # 0.0 Nucleated Red Blood Cells # 0.0 Sodium Level 136 Potassium Level 4.3 Chloride Level 104 Carbon Dioxide Level 19 L Anion Gap 17 H Blood Urea Nitrogen 54 H Creatinine 1.75 H Glucose Level 118 Calcium Level 9.4 Phosphorus Level 3.5 Magnesium Level 1.8 Test 04/05/17 08:55 Bedside Glucose 128 Medications Medications Current Medications Ondansetron HCl (Zofran Inj) 4 mg Q6H PRN IV NAUSEA AND/OR VOMITING; Start at 03:30 Morphine Sulfate (morphine) 2 mg Q4H PRN IV PAIN Last administered on 09:56; Admin Dose 2 MG; Start 03/30/17 at 03:30 Heparin Sodium (Porcine) (Heparin (5000 Units/0.5 ml)) 5,000 unit DAILY SC Last administered on 04/05/17 09:50; Admin Dose 5,000 UNIT; Start 03/30/17 at 09:00 Oxycodone/ Acetaminophen 1 tab 1 tab Q4H PRN PO PAIN; Start 03/30/17 at 06:00 Total Parenteral Nutrition (Tpn) 1,000 ml @ 70 mls/hr [id number] IV Last administered on 04/05/17 04:17; Admin Dose 70 MLS/HR; Start 03/31/17 at 15:00 Diagnostic Test (Pha) (Accu-Chek) 1 ea 02 XX ; Start 04/01/17 at 02:00 Insulin Glargine (Lantus) 10 unit HS SC Last administered on 04/04/17 20:48; Admin Dose 10 UNIT; Start 04/01/17 at 21:00 Miscellaneous Information 1 ea NOTE XX ; Start 03/31/17 at 21:00 Glucose (Glutose) 15 gm Q15M PRN PO DECREASED GLUCOSE; Start 03/31/17 at 21:00 Glucose (Glutose) 22.5 gm Q15M PRN PO DECREASED GLUCOSE; Start 03/31/17 at 21: 00 Dextrose (D50w Syringe) 25 ml Q15M PRN IV DECREASED GLUCOSE; Start 03/31/17 at 21:00 Dextrose (D50w Syringe) 50 ml Q15M PRN IV DECREASED GLUCOSE; Start 03/31/17 at 21:00 Glucagon (Glucagen) 1 mg Q15M PRN IM DECREASED GLUCOSE; Start 03/31/17 at 21: 00 Glucose 15 gm 15 gm Q15M PRN BUCCAL DECREASED GLUCOSE; Start 03/31/17 at 21:00 Meropenem/Sodium Chloride 50 ml @ 100 mls/hr Q12 IVPB Last administered on 09:30; Admin Dose 100 MLS/HR; Start 04/01/17 at 21:00 Linezolid (Zyvox 600mg/D5W (Pmx)) 300 ml @ 300 mls/hr Q12 IVPB Last administered on 04/05/17 10:26; Admin Dose 300 MLS/HR; Start 04/02/17 at 11: 30 BRENDA PETTIT NP Apr 05, 2017 11:44 BRENDA PETTIT NP Apr 05, 2017 11:44
[2017-04-05] MEDS ORDERED: INSULIN ASPART [NOVOLOG] 3 ML PEN SC SCH (12:30)
[2017-04-05 14:00] VITALS: BP 96/55; RESP 18
[2017-04-05] MEDS: ONDANSETRON 4 MG INJ IV PRN (14:03)
--- NOTE | 2017-04-05 17:27 | CONS ---
Date/Time of Note Date/Time of Note DATE: 04/05/17 TIME: 17:25 Assessment/Plan Assessment/Plan Additional Assessment/Plan 1. acute kidney injury Non oliguric 2. H/o ESBL UTI 3.history of bladder cancer s/p TURBT, chemotherapy/radiation, urethral damage, chemo/radiation induced urinary and fecal incontinence. He underwent cystoprostatectomy with urinary diversion, ileal conduit, colonic diversion for fistula on last admission Plan: pt had a full CKD work up done on last admission, no need to repeat it Continue IV Abx meropenem, zyvox , renally dosed off IVF now, on TPN - Cr stable around 1.75 will continue to follow up Consultation Date/Type/Reason Admit Date/Time Mar 30, 2017 at 02:24 Initial Consult Date 03/30/17 Type of Consultation: NEPHROLOGY Referring Provider: ALLISON HAYWARD 24 HR Interval Summary Free Text/Dictation BUN/Cr 54/1.75, on IV a bx Meropenem, Zyvox- on TPN Exam/Review of Systems Vital Signs Vitals Vital Signs Date Time Temp Pulse Resp B/P Pulse Ox O2 Delivery O2 Flow Rate FiO2 04/05/17 14:00 97.6 82 18 96/55 99 04/05/17 08:20 Room Air 04/03/17 20:53 2.0 Intake and Output 04/04/17 04/04/17 04/05/17 15:00 23:00 07:00 Intake Total 1050 ml 1570 ml 770 ml Output Total 2400 ml 1600 ml Balance 1050 ml -830 ml -830 ml Exam Constitutional: other (Patient appears weak. No acute distress. He is cachectic) Head: atraumatic, normocephalic Eyes: EOMI, PERRL Respiratory: clear to auscultation, normal air movement Cardiovascular: nl pulses, regular rate and rhythm Gastrointestinal: other (Scaphoid abdomen. Urostomy, colostomy and ileal conduit) Extremities: normal pulses Results Result Diagram: 04/05/17 0451 04/05/17 0451 Results 24 hrs Laboratory Tests Test 04/04/17 17:45 04/04/17 20:48 04/05/17 04:51 04/05/17 08:55 Bedside Glucose 130 154 128 White Blood Count 12.2 H Red Blood Count 3.67 L Hemoglobin 10.1 L Hematocrit 31.7 L Mean Corpuscular Volume 86.4 Mean Corpuscular Hemoglobin 27.5 L Mean Corpuscular Hemoglobin Concent 31.9 L Red Cell Distribution Width 14.9 H Platelet Count 287 Mean Platelet Volume 9.1 Neutrophils % 73.1 Lymphocytes % 19.6 Monocytes % 5.3 Eosinophils % 1.1 Basophils % 0.2 Nucleated Red Blood Cells % 0.0 Neutrophils # 8.9 H Lymphocytes # 2.4 Monocytes # 0.7 Eosinophils # 0.1 Basophils # 0.0 Nucleated Red Blood Cells # 0.0 Sodium Level 136 Potassium Level 4.3 Chloride Level 104 Carbon Dioxide Level 19 L Anion Gap 17 H Blood Urea Nitrogen 54 H Creatinine 1.75 H Glucose Level 118 Calcium Level 9.4 Phosphorus Level 3.5 Magnesium Level 1.8 Test 04/05/17 12:38 Bedside Glucose 135 Medications Medications Current Medications Ondansetron HCl (Zofran Inj) 4 mg Q6H PRN IV NAUSEA AND/OR VOMITING Last administered on 04/05/17 14:03; Admin Dose 4 MG; Start 03/30/17 at 03:30 Morphine Sulfate (morphine) 2 mg Q4H PRN IV PAIN Last administered on 16:47; Admin Dose 2 MG; Start 03/30/17 at 03:30 Heparin Sodium (Porcine) (Heparin (5000 Units/0.5 ml)) 5,000 unit DAILY SC Last administered on 04/05/17 09:50; Admin Dose 5,000 UNIT; Start 03/30/17 at 09:00 Oxycodone/ Acetaminophen 1 tab 1 tab Q4H PRN PO PAIN; Start 03/30/17 at 06:00 Total Parenteral Nutrition (Tpn) 1,000 ml @ 70 mls/hr [id number] IV Last administered on 04/05/17 04:17; Admin Dose 70 MLS/HR; Start 03/31/17 at 15:00 Insulin Glargine (Lantus) 10 unit HS SC Last administered on 04/04/17 20:48; Admin Dose 10 UNIT; Start 04/01/17 at 21:00 Miscellaneous Information 1 ea NOTE XX ; Start 03/31/17 at 21:00 Glucose (Glutose) 15 gm Q15M PRN PO DECREASED GLUCOSE; Start 03/31/17 at 21:00 Glucose (Glutose) 22.5 gm Q15M PRN PO DECREASED GLUCOSE; Start 03/31/17 at 21: 00 Dextrose (D50w Syringe) 25 ml Q15M PRN IV DECREASED GLUCOSE; Start 03/31/17 at 21:00 Dextrose (D50w Syringe) 50 ml Q15M PRN IV DECREASED GLUCOSE; Start 03/31/17 at 21:00 Glucagon (Glucagen) 1 mg Q15M PRN IM DECREASED GLUCOSE; Start 03/31/17 at 21: 00 Glucose 15 gm 15 gm Q15M PRN BUCCAL DECREASED GLUCOSE; Start 03/31/17 at 21:00 Meropenem/Sodium Chloride 50 ml @ 100 mls/hr Q12 IVPB Last administered on 09:30; Admin Dose 100 MLS/HR; Start 04/01/17 at 21:00 Linezolid (Zyvox 600mg/D5W (Pmx)) 300 ml @ 300 mls/hr Q12 IVPB Last administered on 04/05/17 10:26; Admin Dose 300 MLS/HR; Start 04/02/17 at 11: 30 Diagnostic Test (Pha) (Accu-Chek) 1 ea 02 XX ; Start 04/06/17 at 02:00 MARGOT WOMACK MD Apr 05, 2017 17:27
[2017-04-05] MEDS: Insulin NOVOLOG SS MODERATE Algorithm (SS with meals and bedtime) SC SCH ×2 (17:55→21:00)
[2017-04-05 20:05] VITALS: BP 89/58; RESP 18
[2017-04-05] MEDS: INSULIN GLARGINE [LANtus] 3 ML PEN SC SCH (21:41)
[2017-04-06] MEDS: ACCUCHECK AT 2AM (Patients on SS coverage) XX SCH (01:55)
[2017-04-06 02:10] VITALS: BP 108/55; RESP 17
[2017-04-06] MEDS: TPN 1,000 ML IV SCH ×2 (02:54→10:01)
--- NOTE | 2017-04-06 03:46 | PN ---
Date/Time of Note Date/Time of Note DATE: 04/04/17 TIME: 13:44 Assessment/Plan Lines/Catheters IV Catheter Type (from [facility]): PICC Line Tomas in Place (from [facility]): No Assessment/Plan Chief Complaint/Hosp Course 1. Multiple ostomies and ileal conduit: all ostomies pink and moist; s/p multiple Perforated viscous w small bowel proximal looped ostomy (minimum 6 month wait prior to considering attempting abdominal re-exploration) -continue ostomy care -continue oral feed, TPN -continue local abdominal wound care-w vac -oral diet as tolerated with protein shakes and probiotics -oob/ambulate -urology 2. UTI (polymicrobial, complicated) -abx/antimicrobials per sensitivity -frequent bladder emptying/cath care -urology 3. Malnutrition: tolerating solid diet; no nausea with increase of loperamide -continue tpn -vitamins, probiotics, and nutritional supplements 4. MANA: -judicious fluids -limit nephrotoxic meds 5. Bladder cancer: s/p chemo/radiation, s/p cystoprostatectomy with urinary diversion -per oncology/urology 6. Normocytic hypochromic anemia: no overt bleed noted -monitor -transfuse as needed -further workup per medical team Thank you, Late entry 04/04 Problems: Subjective 24 Hr Interval Summary No f/c. No cp/sob. No cough. No craig/dizzy/visual or neuro changes. Min pain. Loose stools per ostomy. Rectal discharge reduced Exam/Review of Systems Vital Signs Vitals Vital Signs Date Time Temp Pulse Resp B/P Pulse Ox O2 Delivery O2 Flow Rate FiO2 04/06/17 02:10 97.9 83 17 108/55 96 04/05/17 08:20 Room Air 04/03/17 20:53 2.0 Intake and Output 04/05/17 04/05/17 04/06/17 15:00 23:00 07:00 Intake Total 50 ml 1000 ml Output Total 4200 ml Balance 50 ml -3200 ml Exam Free Text/Dictation Constitutional: alert, frail, oriented Psych: nl mood/affect, no complaints Head: atraumatic, normocephalic Eyes: nl lids, nl sclera ENMT: mucosa pink and moist, nl nasal mucosa & septum Neck: non-tender, supple Respiratory: normal air movement Cardiovascular: nl pulses, regular rate and rhythm Gastrointestinal: non-tender, other (ileostomy, colostomy, urostomy), soft, wound, erythema Genitourinary - Male: nl penis, nl scrotum Musculoskeletal: nl extremities to inspection, nl gait and stance Extremities: normal pulses, No edema Neurological: nl mental status, nl speech Skin: nl turgor, rash or lesions Results Result Diagram: 04/05/17 0451 04/05/17 0451 OPAL CRUZ MD Apr 06, 2017 03:46
--- NOTE | 2017-04-06 03:47 | PN ---
Date/Time of Note Date/Time of Note DATE: 04/05/17 TIME: 11:46 Assessment/Plan Lines/Catheters IV Catheter Type (from [facility]): PICC Line Tomas in Place (from [facility]): No Assessment/Plan Chief Complaint/Hosp Course 1. Multiple ostomies and ileal conduit: all ostomies pink and moist; s/p multiple Perforated viscous w small bowel proximal looped ostomy (minimum 6 month wait prior to considering attempting abdominal re-exploration) -continue ostomy care -continue oral feed, TPN -continue local abdominal wound care-w vac -oral diet as tolerated with protein shakes and probiotics -oob/ambulate -urology 2. UTI (polymicrobial, complicated) -abx/antimicrobials per sensitivity -frequent bladder emptying/cath care -urology 3. Malnutrition: tolerating solid diet; no nausea with increase of loperamide -continue tpn -vitamins, probiotics, and nutritional supplements 4. MANA: -judicious fluids -limit nephrotoxic meds 5. Bladder cancer: s/p chemo/radiation, s/p cystoprostatectomy with urinary diversion -per oncology/urology 6. Normocytic hypochromic anemia: no overt bleed noted -monitor -transfuse as needed -further workup per medical team Thank you, Late entry 04/05 Problems: Subjective 24 Hr Interval Summary No f/c. No cp/sob. No cough. No craig/dizzy/visual or neuro changes. Min pain. Loose stools per ostomy. Rectal discharge improved Exam/Review of Systems Vital Signs Vitals Vital Signs Date Time Temp Pulse Resp B/P Pulse Ox O2 Delivery O2 Flow Rate FiO2 04/06/17 02:10 97.9 83 17 108/55 96 04/05/17 08:20 Room Air 04/03/17 20:53 2.0 Intake and Output 04/05/17 04/05/17 04/06/17 15:00 23:00 07:00 Intake Total 50 ml 1000 ml Output Total 4200 ml Balance 50 ml -3200 ml Exam Free Text/Dictation Weak. No f/c. No cp/sob. No cough. No craig/dizzy/visual or neuro changes. Min pain. Loose stools per ostomy. Rectal discharge persists. Exam/Review of Systems Vital Signs Vitals Vital Signs Date Time Temp Pulse Resp B/P Pulse Ox O2 Delivery O2 Flow Rate FiO2 04/03/17 14:00 98.2 95 16 102/60 96 04/02/17 20:12 Room Air Intake and Output 04/02/17 04/02/17 04/03/17 15:00 23:00 07:00 Intake Total 210 ml 1520 ml 1200 ml Output Total 1650 ml 1600 ml Balance 210 ml -130 ml -400 ml Exam Free Text/Dictation Constitutional: alert, frail, oriented Psych: nl mood/affect, no complaints Head: atraumatic, normocephalic Eyes: nl lids, nl sclera ENMT: mucosa pink and moist, nl nasal mucosa & septum Neck: non-tender, supple Respiratory: normal air movement Cardiovascular: nl pulses, regular rate and rhythm Gastrointestinal: non-tender, other (ileostomy, colostomy, urostomy), soft, wound, erythema Genitourinary - Male: nl penis, nl scrotum Musculoskeletal: nl extremities to inspection, nl gait and stance Extremities: normal pulses, No edema Neurological: nl mental status, nl speech Skin: nl turgor, rash or lesions Results Result Diagram: 04/05/17 0451 04/05/17 0451 OPAL CRUZ MD Apr 06, 2017 03:47
[2017-04-06] MEDS: morphine 2 MG INJ IV PRN ×4 (05:09→20:50)
[2017-04-06 05:53] LABS: BASOPHILS % 0.2 % (0.0-2.0); EOSINOPHILS # 0.1 10^3/ul (0.0-0.5); EOSINOPHILS % 1.4 % (0.0-7.0); HEMATOCRIT 31.1 % (42.0-52.0); HEMOGLOBIN 10.2 g/dl (14.0-18.0); LYMPHOCYTES # 2.1 10^3/ul (0.8-2.9); LYMPHOCYTES % 21.1 % (15.0-51.0); MEAN CORPUSCULAR HEMOGLOBIN 28.6 pg (29.0-33.0); MEAN CORPUSCULAR HGB CONC 32.8 g/dl (32.0-37.0); MEAN CORPUSCULAR VOLUME 87.1 fl (82.0-101.0); MEAN PLATELET VOLUME 9.4 fl (7.4-10.4); MONOCYTE # 0.6 10^3/ul (0.3-0.9); MONOCYTES % 5.6 % (0.0-11.0); PLATELET COUNT 312 10^3/UL (140-415); RED BLOOD COUNT 3.57 10^6/ul (4.70-6.10); RED CELL DISTRIBUTION WIDTH 14.6 % (11.5-14.5); WHITE BLOOD COUNT 9.8 10^3/ul (4.8-10.8)
[2017-04-06 06:14] LABS: CALCIUM 9.4 mg/dl (8.4-10.2); CREATININE 1.83 mg/dl (0.61-1.24); POTASSIUM 4.5 mmol/L (3.5-5.1)
[2017-04-06 06:16] LABS: MAGNESIUM 2.1 mg/dl (1.7-2.5); PHOSPHORUS 3.7 mg/dl (2.5-4.9)
--- NOTE | 2017-04-06 06:39 | PN ---
DATE: 04/05/2017 SUBJECTIVE: No events overnight. The patient is awake, looks comfortable, denies pain, no fevers. WBC today 12.2, platelets 287, neutrophils 73.1. BUN 54, creatinine 1.75. MICROBIOLOGY: Urine culture grew Escherichia coli extended-spectrum beta-lactamase and Enterococcus species. ANTIMICROBIALS: The patient is on meropenem and Zyvox. PHYSICAL EXAMINATION: GENERAL: This is a cachectic, chronically ill-appearing, elderly man who is awake, in no distress. HEENT: Head atraumatic, normocephalic. Sclerae anicteric. Buccal mucosa pink, dry. NECK: Supple. CHEST: Rise symmetrical. Breath sounds diminished to bases. HEART: S1, S2. ABDOMEN: Soft, bowel tones present. EXTREMITIES: Without cyanosis. ASSESSMENT: 1. Recurrent urinary tract infection. 2. History of bladder and prostate cancer, status post chemoradiation and cystoprostatectomy with u rinary diversion and ileostomy conduit. 3. History of perforated viscus repair and multiple pelvic abscess pseudocyst drainages. 4. Acute kidney failure with a history of obstructive uropathy with bilateral JJ stent placement. 5. Cachexia. PLAN: The patient remains stable. We will keep on current antibiotics. Monitor renal function and labs. Follow recommendations of specialists. Dictated By: KING MARQUES MECHANICAL TEST TECHNICIAN for [facility]REVOR CRUZ/MADHURI Conf#: [id number] DID#: [id number]
[2017-04-06] MEDS: Insulin NOVOLOG SS MODERATE Algorithm (SS with meals and bedtime) SC SCH ×4 (07:50→20:32)
[2017-04-06 08:07] VITALS: BP 99/63; RESP 18
--- NOTE | 2017-04-06 09:04 | PN ---
Date/Time of Note Date/Time of Note DATE: 04/06/17 TIME: 09:03 Assessment/Plan VTE Prophylaxis VTE Prophylaxis Intervention: heparin Lines/Catheters IV Catheter Type (from [facility] PICC Line Central line still needed: Yes Urinary Cath still in place: No Assessment/Plan Chief Complaint/Hosp Course 1. Complicated urinary tract infection with polymicrobial's including E. coli ESBL. Continue antimicrobials as per infectious diseases. 2. Acute nonoliguric kidney injury. Etiology unclear. The patient being followed by nephrology. Use nephrotoxic drugs with caution. 3. Bladder cancer. Status post radical cystoprostatectomy and creation of ileal conduit with colonic diversion for fistula formation. 4. Status post perforated viscus repair complicated by intra-abdominal abscess requiring CT-guided drainage on previous admission. The patient has an abdominal wound vac in place. Being followed by surgery. 5. Severe protein calorie malnutrition. Patient on TPN. The patient on a mechanical soft diet. 6. Normocytic anemia. Etiology unclear. Probably anemia of chronic disease. 7. Fluids, electrolytes, and nutrition. TPN. Mechanical soft diet. 8. DVT prophylaxis. Subcutaneous heparin. 9. Plan. Continue antimicrobials. Await further recommendations from consultants. DC home once cleared by consultants. Case discussed with Dr. Baez. Problems: Subjective 24 Hr Interval Summary Free Text/Dictation The patient remains afebrile. Exam/Review of Systems Vital Signs Vitals Vital Signs Date Time Temp Pulse Resp B/P Pulse Ox O2 Delivery O2 Flow Rate FiO2 04/06/17 08:07 98.2 62 18 99/63 96 04/05/17 08:20 Room Air 04/03/17 20:53 2.0 Intake and Output 04/05/17 04/05/17 04/06/17 15:00 23:00 07:00 Intake Total 50 ml 1350 ml 1120 ml Output Total 4200 ml 2000 ml Balance 50 ml -2850 ml -880 ml Exam General:, Thin, frail looking 66 year-old male lying in bed in no apparent distress. HEENT: Normocephalic, atraumatic. Eyes: Anicteric sclerae, conjunctivae clear. ENT: Nasal septum midline, oral mucosa moist. Neck supple, no JVD noticed. Respiratory: Bilaterally diminished breath sounds. No use of accessory muscles of respiration. No adventitious breath sounds. Cardiovascular: S1, S2 heard. No murmurs or gallops. Abdomen: Soft, nontender, and nondistended. Abdominal wall wound Vac. Ileostomy draining light brown liquid output (less amount). Colostomy pink bud moist. Ileal conduit. Genitourinary: Deferred. Extremities: No cyanosis, no clubbing, no edema. Peripheral pulses palpable. Neurologic: Cranial nerves II through XII grossly intact. The patient is awake, alert, and oriented. Skin: Normal skin turgor. No skin rashes. Results Result Diagram: 04/06/17 0458 04/06/17 0458 Results 24 hrs Laboratory Tests Test 04/05/17 12:38 04/05/17 17:53 04/05/17 21:33 04/06/17 04:58 Bedside Glucose 135 125 130 White Blood Count 9.8 Red Blood Count 3.57 L Hemoglobin 10.2 L Hematocrit 31.1 L Mean Corpuscular Volume 87.1 Mean Corpuscular Hemoglobin 28.6 L Mean Corpuscular Hemoglobin Concent 32.8 Red Cell Distribution Width 14.6 H Platelet Count 312 Mean Platelet Volume 9.4 Neutrophils % 71.0 Lymphocytes % 21.1 Monocytes % 5.6 Eosinophils % 1.4 Basophils % 0.2 Nucleated Red Blood Cells % 0.0 Neutrophils # 7.0 Lymphocytes # 2.1 Monocytes # 0.6 Eosinophils # 0.1 Basophils # 0.0 Nucleated Red Blood Cells # 0.0 Sodium Level 138 Potassium Level 4.5 Chloride Level 104 Carbon Dioxide Level 23 Anion Gap 16 Blood Urea Nitrogen 57 H Creatinine 1.83 H Glucose Level 122 Calcium Level 9.4 Phosphorus Level 3.7 Magnesium Level 2.1 Test 04/06/17 08:25 Bedside Glucose 135 Medications Medications Current Medications Ondansetron HCl (Zofran Inj) 4 mg Q6H PRN IV NAUSEA AND/OR VOMITING Last administered on 04/05/17 14:03; Admin Dose 4 MG; Start 03/30/17 at 03:30 Morphine Sulfate (morphine) 2 mg Q4H PRN IV PAIN Last administered on 05:09; Admin Dose 2 MG; Start 03/30/17 at 03:30 Heparin Sodium (Porcine) (Heparin (5000 Units/0.5 ml)) 5,000 unit DAILY SC Last administered on 04/05/17 09:50; Admin Dose 5,000 UNIT; Start 03/30/17 at 09:00 Oxycodone/ Acetaminophen 1 tab 1 tab Q4H PRN PO PAIN; Start 03/30/17 at 06:00 Total Parenteral Nutrition (Tpn) 1,000 ml @ 70 mls/hr [id number] IV Last administered on 04/05/17 17:54; Admin Dose 70 MLS/HR; Start 03/31/17 at 15:00 Insulin Glargine (Lantus) 10 unit HS SC Last administered on 04/05/17 21:41; Admin Dose 10 UNIT; Start 04/01/17 at 21:00 Miscellaneous Information 1 ea NOTE XX ; Start 03/31/17 at 21:00 Glucose (Glutose) 15 gm Q15M PRN PO DECREASED GLUCOSE; Start 03/31/17 at 21:00 Glucose (Glutose) 22.5 gm Q15M PRN PO DECREASED GLUCOSE; Start 03/31/17 at 21: 00 Dextrose (D50w Syringe) 25 ml Q15M PRN IV DECREASED GLUCOSE; Start 03/31/17 at 21:00 Dextrose (D50w Syringe) 50 ml Q15M PRN IV DECREASED GLUCOSE; Start 03/31/17 at 21:00 Glucagon (Glucagen) 1 mg Q15M PRN IM DECREASED GLUCOSE; Start 03/31/17 at 21: 00 Glucose 15 gm 15 gm Q15M PRN BUCCAL DECREASED GLUCOSE; Start 03/31/17 at 21:00 Meropenem/Sodium Chloride 50 ml @ 100 mls/hr Q12 IVPB Last administered on 20:31; Admin Dose 100 MLS/HR; Start 04/01/17 at 21:00 Linezolid (Zyvox 600mg/D5W (Pmx)) 300 ml @ 300 mls/hr Q12 IVPB Last administered on 04/05/17 21:34; Admin Dose 300 MLS/HR; Start 04/02/17 at 11: 30 Diagnostic Test (Pha) (Accu-Chek) 1 ea 02 XX ; Start 04/06/17 at 02:00 BRENDA PETTIT NP Apr 06, 2017 09:04
[2017-04-06] MEDS: LINEZOLID 600 MG/D5W (PMX) 300 ML IVPB SCH ×2 (09:52→21:17)
[2017-04-06] MEDS: MEROPENEM 1 GM/50ML(PMX) 50 ML IVPB SCH ×2 (09:52→20:32)
[2017-04-06] MEDS: HEPARIN 5,000 UNIT/0.5 ML VIAL SC SCH (10:18)
--- NOTE | 2017-04-06 13:09 | CONS ---
Date/Time of Note Date/Time of Note DATE: 04/06/17 TIME: 13:08 Assessment/Plan Assessment/Plan Additional Assessment/Plan 1. acute kidney injury Non oliguric 2. H/o ESBL UTI 3.history of bladder cancer s/p TURBT, chemotherapy/radiation, urethral damage, chemo/radiation induced urinary and fecal incontinence. He underwent cystoprostatectomy with urinary diversion, ileal conduit, colonic diversion for fistula on last admission Plan: pt had a full CKD work up done on last admission, no need to repeat it Continue IV Abx meropenem, zyvox , renally dosed off IVF now, on TPN - Cr stable around 1.7 to 1.8 will continue to follow up Consultation Date/Type/Reason Admit Date/Time Mar 30, 2017 at 02:24 Initial Consult Date 03/30/17 Type of Consultation: NEPHROLOGY Referring Provider: ALLISON HAYWARD 24 HR Interval Summary Free Text/Dictation Cr 1.83, no acute events overnight, BP stable Exam/Review of Systems Vital Signs Vitals Vital Signs Date Time Temp Pulse Resp B/P Pulse Ox O2 Delivery O2 Flow Rate FiO2 04/06/17 08:07 98.2 62 18 99/63 96 04/05/17 08:20 Room Air 04/03/17 20:53 2.0 Intake and Output 04/05/17 04/05/17 04/06/17 15:00 23:00 07:00 Intake Total 50 ml 1350 ml 1120 ml Output Total 4200 ml 2000 ml Balance 50 ml -2850 ml -880 ml Exam Constitutional: other (Patient appears weak. No acute distress. He is cachectic) Head: atraumatic, normocephalic Eyes: EOMI, PERRL Respiratory: clear to auscultation, normal air movement Cardiovascular: nl pulses, regular rate and rhythm Gastrointestinal: other (Scaphoid abdomen. Urostomy, colostomy and ileal conduit) Extremities: normal pulses Results Result Diagram: 04/06/17 0458 04/06/17 0458 Results 24 hrs Laboratory Tests Test 04/05/17 17:53 04/05/17 21:33 04/06/17 04:58 04/06/17 08:25 Bedside Glucose 125 130 135 White Blood Count 9.8 Red Blood Count 3.57 L Hemoglobin 10.2 L Hematocrit 31.1 L Mean Corpuscular Volume 87.1 Mean Corpuscular Hemoglobin 28.6 L Mean Corpuscular Hemoglobin Concent 32.8 Red Cell Distribution Width 14.6 H Platelet Count 312 Mean Platelet Volume 9.4 Neutrophils % 71.0 Lymphocytes % 21.1 Monocytes % 5.6 Eosinophils % 1.4 Basophils % 0.2 Nucleated Red Blood Cells % 0.0 Neutrophils # 7.0 Lymphocytes # 2.1 Monocytes # 0.6 Eosinophils # 0.1 Basophils # 0.0 Nucleated Red Blood Cells # 0.0 Sodium Level 138 Potassium Level 4.5 Chloride Level 104 Carbon Dioxide Level 23 Anion Gap 16 Blood Urea Nitrogen 57 H Creatinine 1.83 H Glucose Level 122 Calcium Level 9.4 Phosphorus Level 3.7 Magnesium Level 2.1 Medications Medications Current Medications Ondansetron HCl (Zofran Inj) 4 mg Q6H PRN IV NAUSEA AND/OR VOMITING Last administered on 04/05/17 14:03; Admin Dose 4 MG; Start 03/30/17 at 03:30 Morphine Sulfate (morphine) 2 mg Q4H PRN IV PAIN Last administered on 09:53; Admin Dose 2 MG; Start 03/30/17 at 03:30 Heparin Sodium (Porcine) (Heparin (5000 Units/0.5 ml)) 5,000 unit DAILY SC Last administered on 04/06/17 10:18; Admin Dose 5,000 UNIT; Start 03/30/17 at 09:00 Oxycodone/ Acetaminophen 1 tab 1 tab Q4H PRN PO PAIN; Start 03/30/17 at 06:00 Total Parenteral Nutrition (Tpn) 1,000 ml @ 70 mls/hr [id number] IV Last administered on 04/06/17 10:01; Admin Dose 70 MLS/HR; Start 03/31/17 at 15:00 Insulin Glargine (Lantus) 10 unit HS SC Last administered on 04/05/17 21:41; Admin Dose 10 UNIT; Start 04/01/17 at 21:00 Miscellaneous Information 1 ea NOTE XX ; Start 03/31/17 at 21:00 Glucose (Glutose) 15 gm Q15M PRN PO DECREASED GLUCOSE; Start 03/31/17 at 21:00 Glucose (Glutose) 22.5 gm Q15M PRN PO DECREASED GLUCOSE; Start 03/31/17 at 21: 00 Dextrose (D50w Syringe) 25 ml Q15M PRN IV DECREASED GLUCOSE; Start 03/31/17 at 21:00 Dextrose (D50w Syringe) 50 ml Q15M PRN IV DECREASED GLUCOSE; Start 03/31/17 at 21:00 Glucagon (Glucagen) 1 mg Q15M PRN IM DECREASED GLUCOSE; Start 03/31/17 at 21: 00 Glucose 15 gm 15 gm Q15M PRN BUCCAL DECREASED GLUCOSE; Start 03/31/17 at 21:00 Meropenem/Sodium Chloride 50 ml @ 100 mls/hr Q12 IVPB Last administered on 09:52; Admin Dose 100 MLS/HR; Start 04/01/17 at 21:00 Linezolid (Zyvox 600mg/D5W (Pmx)) 300 ml @ 300 mls/hr Q12 IVPB Last administered on 04/06/17 09:52; Admin Dose 300 MLS/HR; Start 04/02/17 at 11: 30 Diagnostic Test (Pha) (Accu-Chek) 1 ea 02 XX ; Start 04/06/17 at 02:00 MARGOT WOMACK MD Apr 06, 2017 13:09
--- NOTE | 2017-04-06 13:50 | CONS ---
Date/Time of Note Date/Time of Note DATE: 04/06/17 TIME: 13:49 Consult Date/Type/Reason Admit Date/Time Mar 30, 2017 at 02:24 Initial Consult Date 04/01/17 Type of Consultation: ID Ordering Provider: ALLISON HAYWARD Objective Vital Signs Date Time Temp Pulse Resp B/P Pulse Ox O2 Delivery O2 Flow Rate FiO2 04/06/17 08:07 98.2 62 18 99/63 96 04/05/17 08:20 Room Air 04/03/17 20:53 2.0 Intake and Output 04/05/17 04/05/17 04/06/17 14:59 22:59 06:59 Intake Total 50 ml 1350 ml 1120 ml Output Total 4200 ml 2000 ml Balance 50 ml -2850 ml -880 ml Results/Medications Result Diagram: 04/06/17 0458 04/06/17 0458 Results 24 hrs Laboratory Tests Test 04/05/17 17:53 04/05/17 21:33 04/06/17 04:58 04/06/17 08:25 Bedside Glucose 125 130 135 White Blood Count 9.8 Red Blood Count 3.57 L Hemoglobin 10.2 L Hematocrit 31.1 L Mean Corpuscular Volume 87.1 Mean Corpuscular Hemoglobin 28.6 L Mean Corpuscular Hemoglobin Concent 32.8 Red Cell Distribution Width 14.6 H Platelet Count 312 Mean Platelet Volume 9.4 Neutrophils % 71.0 Lymphocytes % 21.1 Monocytes % 5.6 Eosinophils % 1.4 Basophils % 0.2 Nucleated Red Blood Cells % 0.0 Neutrophils # 7.0 Lymphocytes # 2.1 Monocytes # 0.6 Eosinophils # 0.1 Basophils # 0.0 Nucleated Red Blood Cells # 0.0 Sodium Level 138 Potassium Level 4.5 Chloride Level 104 Carbon Dioxide Level 23 Anion Gap 16 Blood Urea Nitrogen 57 H Creatinine 1.83 H Glucose Level 122 Calcium Level 9.4 Phosphorus Level 3.7 Magnesium Level 2.1 Test 04/06/17 13:08 Bedside Glucose 178 Medications Current Medications Ondansetron HCl (Zofran Inj) 4 mg Q6H PRN IV NAUSEA AND/OR VOMITING Last administered on 04/05/17t 14:03; Admin Dose 4 MG; Start 03/30/17 at 03:30 Morphine Sulfate (morphine) 2 mg Q4H PRN IV PAIN Last administered on 09:53; Admin Dose 2 MG; Start 03/30/17 at 03:30 Heparin Sodium (Porcine) (Heparin (5000 Units/0.5 ml)) 5,000 unit DAILY SC Last administered on 04/06/17 10:18; Admin Dose 5,000 UNIT; Start 03/30/17 at 09:00 Oxycodone/ Acetaminophen 1 tab 1 tab Q4H PRN PO PAIN; Start 03/30/17 at 06:00 Total Parenteral Nutrition (Tpn) 1,000 ml @ 70 mls/hr [id number] IV Last administered on 04/06/17 10:01; Admin Dose 70 MLS/HR; Start 03/31/17 at 15:00 Insulin Glargine (Lantus) 10 unit HS SC Last administered on 04/05/17 21:41; Admin Dose 10 UNIT; Start 04/01/17 at 21:00 Miscellaneous Information 1 ea NOTE XX ; Start 03/31/17 at 21:00 Glucose (Glutose) 15 gm Q15M PRN PO DECREASED GLUCOSE; Start 03/31/17 at 21:00 Glucose (Glutose) 22.5 gm Q15M PRN PO DECREASED GLUCOSE; Start 03/31/17 at 21: 00 Dextrose (D50w Syringe) 25 ml Q15M PRN IV DECREASED GLUCOSE; Start 03/31/17 at 21:00 Dextrose (D50w Syringe) 50 ml Q15M PRN IV DECREASED GLUCOSE; Start 03/31/17 at 21:00 Glucagon (Glucagen) 1 mg Q15M PRN IM DECREASED GLUCOSE; Start 03/31/17 at 21: 00 Glucose 15 gm 15 gm Q15M PRN BUCCAL DECREASED GLUCOSE; Start 03/31/17 at 21:00 Meropenem/Sodium Chloride 50 ml @ 100 mls/hr Q12 IVPB Last administered on 09:52; Admin Dose 100 MLS/HR; Start 04/01/17 at 21:00 Linezolid (Zyvox 600mg/D5W (Pmx)) 300 ml @ 300 mls/hr Q12 IVPB Last administered on 04/06/17 09:52; Admin Dose 300 MLS/HR; Start 04/02/17 at 11: 30 Diagnostic Test (Pha) (Accu-Chek) 1 ea 02 XX ; Start 04/06/17 at 02:00 Assessment/Plan Chief Complaint/Hosp Course SUBJECTIVE: No events overnight. The patient is sleeping, looks comfortable, no fevers. MICROBIOLOGY: Urine culture grew Escherichia coli extended-spectrum beta- lactamase and Enterococcus species. ANTIMICROBIALS: Meropenem and Zyvox. PHYSICAL EXAMINATION: GENERAL: This is a cachectic, chronically ill-appearing, elderly man who is in no distress. HEENT: Head atraumatic, normocephalic. Sclerae anicteric. NECK: Supple. CHEST: Rise symmetrical. Breath sounds diminished to bases. HEART: S1, S2. ABDOMEN: Soft, bowel tones present. EXTREMITIES: Without cyanosis. ASSESSMENT: 1. Recurrent urinary tract infection. 2. History of bladder and prostate cancer, status post chemoradiation and cystoprostatectomy with urinary diversion and ileostomy conduit. 3. History of perforated viscus repair and multiple pelvic abscess pseudocyst drainages. 4. Acute kidney failure with a history of obstructive uropathy with bilateral JJ stent placement. 5. Cachexia. PLAN: The patient remains stable. WBC decreasing, continue abx. Follow recommendations of specialists. ROBIN NAVARRETE Problems: KING MARQUES NP Apr 06, 2017 13:50
[2017-04-06 14:00] VITALS: BP 100/68; RESP 18
--- NOTE | 2017-04-06 16:51 | PN ---
Date/Time of Note Date/Time of Note DATE: 04/06/17 TIME: 16:50 Assessment/Plan Lines/Catheters IV Catheter Type (from [facility]): PICC Line Tomas in Place (from [facility]): No Assessment/Plan Chief Complaint/Hosp Course 1. Multiple ostomies and ileal conduit: all ostomies pink and moist; s/p multiple Perforated viscous w small bowel proximal looped ostomy (minimum 6 month wait prior to considering attempting abdominal re-exploration) -continue ostomy care -continue oral feed, TPN -continue local abdominal wound care-w vac -oral diet as tolerated with protein shakes and probiotics -oob/ambulate -urology 2. UTI (polymicrobial, complicated) -abx/antimicrobials per sensitivity -frequent bladder emptying/cath care -urology 3. Malnutrition: tolerating solid diet; no nausea with increase of loperamide -continue tpn -vitamins, probiotics, and nutritional supplements 4. MANA: -judicious fluids -limit nephrotoxic meds 5. Bladder cancer: s/p chemo/radiation, s/p cystoprostatectomy with urinary diversion -per oncology/urology 6. Normocytic hypochromic anemia: no overt bleed noted -monitor -transfuse as needed -further workup per medical team Thank you, Problems: Subjective 24 Hr Interval Summary Leukocytosis resolved. No f/c. No cp/sob. No cough. No craig/dizzy/visual or neuro changes. Min pain. Loose stools per ostomy. Rectal discharge improved Exam/Review of Systems Vital Signs Vitals Vital Signs Date Time Temp Pulse Resp B/P Pulse Ox O2 Delivery O2 Flow Rate FiO2 04/06/17 08:07 98.2 62 18 99/63 96 04/05/17 08:20 Room Air 04/03/17 20:53 2.0 Intake and Output 04/05/17 04/05/17 04/06/17 15:00 23:00 07:00 Intake Total 50 ml 1350 ml 1120 ml Output Total 4200 ml 2000 ml Balance 50 ml -2850 ml -880 ml Exam Free Text/Dictation Constitutional: alert, frail, oriented Psych: nl mood/affect, no complaints Head: atraumatic, normocephalic Eyes: nl lids, nl sclera ENMT: mucosa pink and moist, nl nasal mucosa & septum Neck: non-tender, supple Respiratory: normal air movement Cardiovascular: nl pulses, regular rate and rhythm Gastrointestinal: non-tender, other (ileostomy, colostomy, urostomy), soft, wound, erythema Genitourinary - Male: nl penis, nl scrotum Musculoskeletal: nl extremities to inspection, nl gait and stance Extremities: normal pulses, No edema Neurological: nl mental status, nl speech Skin: nl turgor, rash or lesions Results Result Diagram: 04/06/17 0458 04/06/17 0458 OPAL CRUZ MD Apr 06, 2017 16:51
[2017-04-06] MEDS: ONDANSETRON 4 MG INJ IV PRN (17:33)
[2017-04-06 20:05] VITALS: BP 106/57; RESP 18
[2017-04-06] MEDS: INSULIN GLARGINE [LANtus] 3 ML PEN SC SCH (20:35)
[2017-04-07] MEDS: morphine 2 MG INJ IV PRN ×3 (00:54→20:23)
[2017-04-07] MEDS: ACCUCHECK AT 2AM (Patients on SS coverage) XX SCH (01:54)
[2017-04-07] MEDS: TPN 1,000 ML IV SCH ×3 (02:30→20:34)
[2017-04-07 02:40] VITALS: BP 106/69; RESP 20
[2017-04-07 06:01] LABS: BASOPHILS % 0.2 % (0.0-2.0); EOSINOPHILS # 0.2 10^3/ul (0.0-0.5); EOSINOPHILS % 1.5 % (0.0-7.0); HEMOGLOBIN 10.3 g/dl (14.0-18.0); LYMPHOCYTES # 1.6 10^3/ul (0.8-2.9); LYMPHOCYTES % 15.2 % (15.0-51.0); MEAN CORPUSCULAR HEMOGLOBIN 28.6 pg (29.0-33.0); MEAN CORPUSCULAR HGB CONC 33.2 g/dl (32.0-37.0); MEAN CORPUSCULAR VOLUME 86.1 fl (82.0-101.0); MONOCYTE # 0.6 10^3/ul (0.3-0.9); MONOCYTES % 5.9 % (0.0-11.0); NEUTROPHIL # 7.8 10^3/ul (1.6-7.5); NEUTROPHILS % 76.5 % (39.0-77.0); PLATELET COUNT 279 10^3/UL (140-415); RED CELL DISTRIBUTION WIDTH 14.6 % (11.5-14.5); WHITE BLOOD COUNT 10.2 10^3/ul (4.8-10.8)
[2017-04-07 06:30] LABS: MAGNESIUM 2.1 mg/dl (1.7-2.5); PHOSPHORUS 3.3 mg/dl (2.5-4.9)
[2017-04-07 06:32] LABS: CALCIUM 9.4 mg/dl (8.4-10.2); CREATININE 1.92 mg/dl (0.61-1.24); POTASSIUM 4.1 mmol/L (3.5-5.1)
[2017-04-07] MEDS: Insulin NOVOLOG SS MODERATE Algorithm (SS with meals and bedtime) SC SCH ×4 (07:50→20:33)
[2017-04-07 08:01] VITALS: BP 108/66; RESP 18
[2017-04-07] MEDS: MEROPENEM 1 GM/50ML(PMX) 50 ML IVPB SCH ×2 (08:15→20:12)
[2017-04-07] MEDS: HEPARIN 5,000 UNIT/0.5 ML VIAL SC SCH (08:37)
[2017-04-07] MEDS: LINEZOLID 600 MG/D5W (PMX) 300 ML IVPB SCH ×2 (08:57→21:30)
--- NOTE | 2017-04-07 09:53 | CONS ---
Date/Time of Note Date/Time of Note DATE: 04/07/17 TIME: 09:51 Assessment/Plan Assessment/Plan Additional Assessment/Plan 1. acute kidney injury Non oliguric 2. H/o ESBL UTI 3.history of bladder cancer s/p TURBT, chemotherapy/radiation, urethral damage, chemo/radiation induced urinary and fecal incontinence. He underwent cystoprostatectomy with urinary diversion, ileal conduit, colonic diversion for fistula on last admission Plan: pt had a full CKD work up done on last admission, no need to repeat it Continue IV Abx meropenem, zyvox , renally dosed off IVF now, on TPN - Cr 1.92 will continue to follow up Consultation Date/Type/Reason Admit Date/Time Mar 30, 2017 at 02:24 Initial Consult Date 03/30/17 Type of Consultation: NEPHROLOGY Referring Provider: ALLISON HAYWARD 24 HR Interval Summary Free Text/Dictation Cr 1.92, No acute events overnight , BP stable Exam/Review of Systems Vital Signs Vitals Vital Signs Date Time Temp Pulse Resp B/P Pulse Ox O2 Delivery O2 Flow Rate FiO2 04/07/17 08:01 98.5 79 18 108/66 100 04/05/17 08:20 Room Air 04/03/17 20:53 2.0 Intake and Output 04/06/17 04/06/17 04/07/17 15:00 23:00 07:00 Intake Total 350 ml 1710 ml 910 ml Output Total 2500 ml 2500 ml Balance 350 ml -790 ml -1590 ml Exam Constitutional: other (Patient appears weak. No acute distress. He is cachectic) Head: atraumatic, normocephalic Eyes: EOMI, PERRL Respiratory: clear to auscultation, normal air movement Cardiovascular: nl pulses, regular rate and rhythm Gastrointestinal: other (Scaphoid abdomen. Urostomy, colostomy and ileal conduit) Extremities: normal pulses Results Result Diagram: 04/07/17 0453 04/07/17 0453 Results 24 hrs Laboratory Tests Test 04/06/17 13:08 04/06/17 17:32 04/06/17 20:31 04/07/17 04:53 Bedside Glucose 178 122 140 White Blood Count 10.2 Red Blood Count 3.60 L Hemoglobin 10.3 L Hematocrit 31.0 L Mean Corpuscular Volume 86.1 Mean Corpuscular Hemoglobin 28.6 L Mean Corpuscular Hemoglobin Concent 33.2 Red Cell Distribution Width 14.6 H Platelet Count 279 Mean Platelet Volume 9.0 Neutrophils % 76.5 Lymphocytes % 15.2 Monocytes % 5.9 Eosinophils % 1.5 Basophils % 0.2 Nucleated Red Blood Cells % 0.0 Neutrophils # 7.8 H Lymphocytes # 1.6 Monocytes # 0.6 Eosinophils # 0.2 Basophils # 0.0 Nucleated Red Blood Cells # 0.0 Sodium Level 135 Potassium Level 4.1 Chloride Level 104 Carbon Dioxide Level 22 Anion Gap 13 Blood Urea Nitrogen 53 H Creatinine 1.92 H Glucose Level 105 Calcium Level 9.4 Phosphorus Level 3.3 Magnesium Level 2.1 Test 04/07/17 08:13 Bedside Glucose 111 Medications Medications Current Medications Ondansetron HCl (Zofran Inj) 4 mg Q6H PRN IV NAUSEA AND/OR VOMITING Last administered on 04/06/17 17:33; Admin Dose 4 MG; Start 03/30/17 at 03:30 Heparin Sodium (Porcine) (Heparin (5000 Units/0.5 ml)) 5,000 unit DAILY SC Last administered on 04/07/17 08:37; Admin Dose 5,000 UNIT; Start 03/30/17 at 09:00 Oxycodone/ Acetaminophen 1 tab 1 tab Q4H PRN PO PAIN; Start 03/30/17 at 06:00 Total Parenteral Nutrition (Tpn) 1,000 ml @ 70 mls/hr [id number] IV Last administered on 04/07/17 02:30; Admin Dose 70 MLS/HR; Start 03/31/17 at 15:00 Insulin Glargine (Lantus) 10 unit HS SC Last administered on 04/06/17 20:35; Admin Dose 10 UNIT; Start 04/01/17 at 21:00 Miscellaneous Information 1 ea NOTE XX ; Start 03/31/17 at 21:00 Glucose (Glutose) 15 gm Q15M PRN PO DECREASED GLUCOSE; Start 03/31/17 at 21:00 Glucose (Glutose) 22.5 gm Q15M PRN PO DECREASED GLUCOSE; Start 03/31/17 at 21: 00 Dextrose (D50w Syringe) 25 ml Q15M PRN IV DECREASED GLUCOSE; Start 03/31/17 at 21:00 Dextrose (D50w Syringe) 50 ml Q15M PRN IV DECREASED GLUCOSE; Start 03/31/17 at 21:00 Glucagon (Glucagen) 1 mg Q15M PRN IM DECREASED GLUCOSE; Start 03/31/17 at 21: 00 Glucose 15 gm 15 gm Q15M PRN BUCCAL DECREASED GLUCOSE; Start 03/31/17 at 21:00 Meropenem/Sodium Chloride 50 ml @ 100 mls/hr Q12 IVPB Last administered on 08:15; Admin Dose 100 MLS/HR; Start 04/01/17 at 21:00 Linezolid (Zyvox 600mg/D5W (Pmx)) 300 ml @ 300 mls/hr Q12 IVPB Last administered on 04/07/17 08:57; Admin Dose 300 MLS/HR; Start 04/02/17 at 11:30 Diagnostic Test (Pha) (Accu-Chek) 1 ea 02 XX ; Start 04/06/17 at 02:00 Morphine Sulfate (morphine) 2 mg Q3H PRN IV PAIN Last administered on 20:50; Admin Dose 2 MG; Start 04/06/17 at 22:30 MARGOT WOMACK MD Apr 07, 2017 09:53
--- NOTE | 2017-04-07 13:07 | CONS ---
Date/Time of Note Date/Time of Note DATE: 04/07/17 TIME: 13:06 Consult Date/Type/Reason Admit Date/Time Mar 30, 2017 at 02:24 Initial Consult Date 04/01/17 Type of Consultation: ID Ordering Provider: ALLISON HAYWARD Objective Vital Signs Date Time Temp Pulse Resp B/P Pulse Ox O2 Delivery O2 Flow Rate FiO2 04/07/17 08:01 98.5 79 18 108/66 100 04/05/17 08:20 Room Air 04/03/17 20:53 2.0 Intake and Output 04/06/17 04/06/17 04/07/17 15:00 23:00 07:00 Intake Total 350 ml 1710 ml 910 ml Output Total 2500 ml 2500 ml Balance 350 ml -790 ml -1590 ml Results/Medications Result Diagram: 04/07/17 0453 04/07/17 0453 Results 24 hrs Laboratory Tests Test 04/06/17 13:08 04/06/17 17:32 04/06/17 20:31 04/07/17 04:53 Bedside Glucose 178 122 140 White Blood Count 10.2 Red Blood Count 3.60 L Hemoglobin 10.3 L Hematocrit 31.0 L Mean Corpuscular Volume 86.1 Mean Corpuscular Hemoglobin 28.6 L Mean Corpuscular Hemoglobin Concent 33.2 Red Cell Distribution Width 14.6 H Platelet Count 279 Mean Platelet Volume 9.0 Neutrophils % 76.5 Lymphocytes % 15.2 Monocytes % 5.9 Eosinophils % 1.5 Basophils % 0.2 Nucleated Red Blood Cells % 0.0 Neutrophils # 7.8 H Lymphocytes # 1.6 Monocytes # 0.6 Eosinophils # 0.2 Basophils # 0.0 Nucleated Red Blood Cells # 0.0 Sodium Level 135 Potassium Level 4.1 Chloride Level 104 Carbon Dioxide Level 22 Anion Gap 13 Blood Urea Nitrogen 53 H Creatinine 1.92 H Glucose Level 105 Calcium Level 9.4 Phosphorus Level 3.3 Magnesium Level 2.1 Test 04/07/17 08:13 04/07/17 12:45 Bedside Glucose 111 105 Medications Current Medications Ondansetron HCl (Zofran Inj) 4 mg Q6H PRN IV NAUSEA AND/OR VOMITING Last administered on 04/06/17t 17:33; Admin Dose 4 MG; Start 03/30/17 at 03:30 Heparin Sodium (Porcine) (Heparin (5000 Units/0.5 ml)) 5,000 unit DAILY SC Last administered on 04/07/17 08:37; Admin Dose 5,000 UNIT; Start 03/30/17 at 09:00 Oxycodone/ Acetaminophen 1 tab 1 tab Q4H PRN PO PAIN; Start 03/30/17 at 06:00 Total Parenteral Nutrition (Tpn) 1,000 ml @ 70 mls/hr [id number] IV Last administered on 04/07/17 02:30; Admin Dose 70 MLS/HR; Start 03/31/17 at 15:00 Insulin Glargine (Lantus) 10 unit HS SC Last administered on 04/06/17 20:35; Admin Dose 10 UNIT; Start 04/01/17 at 21:00 Miscellaneous Information 1 ea NOTE XX ; Start 03/31/17 at 21:00 Glucose (Glutose) 15 gm Q15M PRN PO DECREASED GLUCOSE; Start 03/31/17 at 21:00 Glucose (Glutose) 22.5 gm Q15M PRN PO DECREASED GLUCOSE; Start 03/31/17 at 21: 00 Dextrose (D50w Syringe) 25 ml Q15M PRN IV DECREASED GLUCOSE; Start 03/31/17 at 21:00 Dextrose (D50w Syringe) 50 ml Q15M PRN IV DECREASED GLUCOSE; Start 03/31/17 at 21:00 Glucagon (Glucagen) 1 mg Q15M PRN IM DECREASED GLUCOSE; Start 03/31/17 at 21: 00 Glucose 15 gm 15 gm Q15M PRN BUCCAL DECREASED GLUCOSE; Start 03/31/17 at 21:00 Meropenem/Sodium Chloride 50 ml @ 100 mls/hr Q12 IVPB Last administered on 08:15; Admin Dose 100 MLS/HR; Start 04/01/17 at 21:00 Linezolid (Zyvox 600mg/D5W (Pmx)) 300 ml @ 300 mls/hr Q12 IVPB Last administered on 04/07/17 08:57; Admin Dose 300 MLS/HR; Start 04/02/17 at 11:30 Diagnostic Test (Pha) (Accu-Chek) 1 ea 02 XX ; Start 04/06/17 at 02:00 Morphine Sulfate (morphine) 2 mg Q3H PRN IV PAIN Last administered on t 20:50; Admin Dose 2 MG; Start 04/06/17 at 22:30 Assessment/Plan Chief Complaint/Hosp Course SUBJECTIVE: No events overnight. The patient is alert, denies pain, looks comfortable, no fevers. MICROBIOLOGY: Urine culture grew Escherichia coli extended-spectrum beta- lactamase and Enterococcus species. ANTIMICROBIALS: Meropenem and Zyvox. PHYSICAL EXAMINATION: GENERAL: This is a cachectic, chronically ill-appearing, elderly man who is in no distress. HEENT: Head atraumatic, normocephalic. Sclerae anicteric. NECK: Supple. CHEST: Rise symmetrical. Breath sounds diminished to bases. HEART: S1, S2. ABDOMEN: Soft, bowel tones present. EXTREMITIES: Without cyanosis. ASSESSMENT: 1. Recurrent urinary tract infection. 2. History of bladder and prostate cancer, status post chemoradiation and cystoprostatectomy with urinary diversion and ileostomy conduit. 3. History of perforated viscus repair and multiple pelvic abscess pseudocyst drainages. 4. Acute kidney failure with a history of obstructive uropathy with bilateral JJ stent placement. 5. Cachexia. PLAN: The patient remains stable. Continue abx. Follow recommendations of specialists. ROBIN pt Problems: KING MARQUES NP Apr 07, 2017 13:07
[2017-04-07] MEDS: ONDANSETRON 4 MG INJ IV PRN (13:09)
[2017-04-07 14:00] VITALS: BP 117/70; RESP 18
--- NOTE | 2017-04-07 14:15 | PN ---
Date/Time of Note Date/Time of Note DATE: 04/07/17 TIME: 14:06 Assessment/Plan Lines/Catheters IV Catheter Type (from [facility]): PICC Line Tomas in Place (from [facility]): No Assessment/Plan Chief Complaint/Hosp Course 1. Multiple ostomies and ileal conduit: all ostomies pink and moist; s/p multiple Perforated viscous w small bowel proximal looped ostomy (minimum 6 month wait prior to considering attempting abdominal re-exploration) -continue ostomy care -continue oral feed, TPN -continue local abdominal wound care-w vac -oral diet as tolerated with protein shakes and probiotics -oob/ambulate -urology 2. UTI (polymicrobial, complicated) -abx/antimicrobials per sensitivity -frequent bladder emptying/cath care -urology 3. Malnutrition: tolerating solid diet -continue tpn -vitamins, probiotics, and nutritional supplements 4. MANA: -judicious fluids -limit nephrotoxic meds -per renal 5. Bladder cancer: s/p chemo/radiation, s/p cystoprostatectomy with urinary diversion -per oncology/urology 6. Normocytic hypochromic anemia: no overt bleed noted -monitor -transfuse as needed -further workup per medical team 7. Leukocytosis: normalized -as above Thank you. Patient seen and examined in collaboration with Dr. Bang Ross Problems: Subjective 24 Hr Interval Summary Continues with PT. Min nausea no vomiting. Continues on tpn. No fevers, chills, sob, congested cough, cp, palpitations, craig, dizziness. All ostomies pink and moist. Exam/Review of Systems Vital Signs Vitals Vital Signs Date Time Temp Pulse Resp B/P Pulse Ox O2 Delivery O2 Flow Rate FiO2 04/07/17 08:01 98.5 79 18 108/66 100 04/05/17 08:20 Room Air 04/03/17 20:53 2.0 Intake and Output 04/06/17 04/06/17 04/07/17 15:00 23:00 07:00 Intake Total 350 ml 1710 ml 910 ml Output Total 2500 ml 2500 ml Balance 350 ml -790 ml -1590 ml Exam Free Text/Dictation Constitutional: alert, frail, oriented Psych: nl mood/affect, no complaints Head: atraumatic, normocephalic Eyes: nl lids, nl sclera ENMT: mucosa pink and moist, nl nasal mucosa & septum Neck: non-tender, supple Respiratory: normal air movement Cardiovascular: nl pulses, regular rate and rhythm Gastrointestinal: non-tender, other (ileostomy, colostomy, urostomy), soft, wound, erythema Genitourinary - Male: nl penis, nl scrotum Musculoskeletal: nl extremities to inspection, nl gait and stance Extremities: normal pulses, No edema Neurological: nl mental status, nl speech Skin: nl turgor, rash or lesions; wound vac to lower abdomen Results Result Diagram: 04/07/17 0453 04/07/17 0453 IFTIKHAR ROBERTSON NP Apr 07, 2017 14:14
--- NOTE | 2017-04-07 14:18 | PN ---
Date/Time of Note Date/Time of Note DATE: 04/07/17 TIME: 14:12 Assessment/Plan VTE Prophylaxis VTE Prophylaxis Intervention: heparin Lines/Catheters IV C[facility]ter Type (from [facility]): PICC Line Central line still needed: Yes Urinary Cath still in place: No Assessment/Plan Assessment/Plan 1. Complicated urinary tract infection with polymicrobial's including E. coli ESBL, on zyvox and meropenem 2. Acute nonoliguric kidney injury. Etiology unclear. The patient being followed by nephrology. Use nephrotoxic drugs with caution. 3. Bladder cancer. Status post radical cystoprostatectomy and creation of ileal conduit with colonic diversion for fistula formation. 4. Status post perforated viscus repair complicated by intra-abdominal abscess requiring CT-guided drainage on previous admission. The patient has an abdominal wound vac in place. Being followed by surgery. 5. Severe protein calorie malnutrition. Patient on TPN. The patient on a mechanical soft diet. 6. Normocytic anemia. Etiology unclear. Probably anemia of chronic disease. 7. DVT prophylaxis. Subcutaneous heparin. Subjective 24 Hr Interval Summary Free Text/Dictation afebrile. weak Exam/Review of Systems Vital Signs Vitals Vital Signs Date Time Temp Pulse Resp B/P Pulse Ox O2 Delivery O2 Flow Rate FiO2 04/07/17 08:01 98.5 79 18 108/66 100 04/05/17 08:20 Room Air 04/03/17 20:53 2.0 Intake and Output 04/06/17 04/06/17 04/07/17 15:00 23:00 07:00 Intake Total 350 ml 1710 ml 910 ml Output Total 2500 ml 2500 ml Balance 350 ml -790 ml -1590 ml Exam Constitutional: alert, frail, oriented, well developed Psych: nl mood/affect, no complaints Head: atraumatic, normocephalic Eyes: EOMI, nl conjunctiva, nl lids ENMT: nl external ears & nose, nl lips & teeth, nl nasal mucosa & septum Neck: non-tender, supple Respiratory: clear to auscultation, normal air movement, No congested cough, No crackles/rales, No diminished breath sounds, No intercostal retraction, No labored breathing, No other, No respirations, No tactile fremitus, No wheezing Cardiovascular: nl pulses, regular rate and rhythm Gastrointestinal: nl liver, spleen, soft, tender (mild diffuse) Musculoskeletal: nl extremities to inspection Extremities: normal pulses, No calf tenderness, No clubbing, No cyanosis, No edema, No other, No palpable cord, No pitting pedal edema, No tenderness Neurological: CIRCULAR KNITTER II-XII intact, nl mental status, nl speech, nl strength Skin: nl turgor Lymph: nl lymph nodes Results Result Diagram: 04/07/17 0453 04/07/17 0453 Results 24 hrs Laboratory Tests Test 04/06/17 17:32 04/06/17 20:31 04/07/17 04:53 04/07/17 08:13 Bedside Glucose 122 140 111 White Blood Count 10.2 Red Blood Count 3.60 L Hemoglobin 10.3 L Hematocrit 31.0 L Mean Corpuscular Volume 86.1 Mean Corpuscular Hemoglobin 28.6 L Mean Corpuscular Hemoglobin Concent 33.2 Red Cell Distribution Width 14.6 H Platelet Count 279 Mean Platelet Volume 9.0 Neutrophils % 76.5 Lymphocytes % 15.2 Monocytes % 5.9 Eosinophils % 1.5 Basophils % 0.2 Nucleated Red Blood Cells % 0.0 Neutrophils # 7.8 H Lymphocytes # 1.6 Monocytes # 0.6 Eosinophils # 0.2 Basophils # 0.0 Nucleated Red Blood Cells # 0.0 Sodium Level 135 Potassium Level 4.1 Chloride Level 104 Carbon Dioxide Level 22 Anion Gap 13 Blood Urea Nitrogen 53 H Creatinine 1.92 H Glucose Level 105 Calcium Level 9.4 Phosphorus Level 3.3 Magnesium Level 2.1 Test 04/07/17 12:45 Bedside Glucose 105 Medications Medications Current Medications Ondansetron HCl (Zofran Inj) 4 mg Q6H PRN IV NAUSEA AND/OR VOMITING Last administered on 04/07/17 13:09; Admin Dose 4 MG; Start 03/30/17 at 03:30 Heparin Sodium (Porcine) (Heparin (5000 Units/0.5 ml)) 5,000 unit DAILY SC Last administered on 04/07/17 08:37; Admin Dose 5,000 UNIT; Start 03/30/17 at 09:00 Oxycodone/ Acetaminophen 1 tab 1 tab Q4H PRN PO PAIN; Start 03/30/17 at 06:00 Total Parenteral Nutrition (Tpn) 1,000 ml @ 70 mls/hr [id number] IV Last administered on 04/07/17 02:30; Admin Dose 70 MLS/HR; Start 03/31/17 at 15:00 Insulin Glargine (Lantus) 10 unit HS SC Last administered on 04/06/17 20:35; Admin Dose 10 UNIT; Start 04/01/17 at 21:00 Miscellaneous Information 1 ea NOTE XX ; Start 03/31/17 at 21:00 Glucose (Glutose) 15 gm Q15M PRN PO DECREASED GLUCOSE; Start 03/31/17 at 21:00 Glucose (Glutose) 22.5 gm Q15M PRN PO DECREASED GLUCOSE; Start 03/31/17 at 21: 00 Dextrose (D50w Syringe) 25 ml Q15M PRN IV DECREASED GLUCOSE; Start 03/31/17 at 21:00 Dextrose (D50w Syringe) 50 ml Q15M PRN IV DECREASED GLUCOSE; Start 03/31/17 at 21:00 Glucagon (Glucagen) 1 mg Q15M PRN IM DECREASED GLUCOSE; Start 03/31/17 at 21: 00 Glucose 15 gm 15 gm Q15M PRN BUCCAL DECREASED GLUCOSE; Start 03/31/17 at 21:00 Meropenem/Sodium Chloride 50 ml @ 100 mls/hr Q12 IVPB Last administered on 08:15; Admin Dose 100 MLS/HR; Start 04/01/17 at 21:00 Linezolid (Zyvox 600mg/D5W (Pmx)) 300 ml @ 300 mls/hr Q12 IVPB Last administered on 04/07/17 08:57; Admin Dose 300 MLS/HR; Start 04/02/17 at 11:30 Diagnostic Test (Pha) (Accu-Chek) 1 ea 02 XX ; Start 04/06/17 at 02:00 Morphine Sulfate (morphine) 2 mg Q3H PRN IV PAIN Last administered on 20:50; Admin Dose 2 MG; Start 04/06/17 at 22:30 NAA HUFF MD Apr 07, 2017 14:18
[2017-04-07 19:56] VITALS: BP 94/53; RESP 20
[2017-04-07] MEDS: INSULIN GLARGINE [LANtus] 3 ML PEN SC SCH (20:28)
[2017-04-08] MEDS: morphine 2 MG INJ IV PRN ×6 (00:30→20:36)
[2017-04-08] MEDS: ACCUCHECK AT 2AM (Patients on SS coverage) XX SCH (01:12)
[2017-04-08 03:00] VITALS: BP 92/54; RESP 18
[2017-04-08 05:44] LABS: BASOPHILS % 0.4 % (0.0-2.0); EOSINOPHILS # 0.1 10^3/ul (0.0-0.5); EOSINOPHILS % 0.9 % (0.0-7.0); HEMATOCRIT 29.6 % (42.0-52.0); HEMOGLOBIN 9.5 g/dl (14.0-18.0); LYMPHOCYTES # 1.7 10^3/ul (0.8-2.9); LYMPHOCYTES % 21.8 % (15.0-51.0); MEAN CORPUSCULAR HEMOGLOBIN 27.4 pg (29.0-33.0); MEAN CORPUSCULAR HGB CONC 32.1 g/dl (32.0-37.0); MEAN CORPUSCULAR VOLUME 85.3 fl (82.0-101.0); MEAN PLATELET VOLUME 9.2 fl (7.4-10.4); MONOCYTE # 0.6 10^3/ul (0.3-0.9); NEUTROPHIL # 5.5 10^3/ul (1.6-7.5); NEUTROPHILS % 68.1 % (39.0-77.0); PLATELET COUNT 276 10^3/UL (140-415); RED BLOOD COUNT 3.47 10^6/ul (4.70-6.10); RED CELL DISTRIBUTION WIDTH 15.1 % (11.5-14.5)
[2017-04-08 06:14] LABS: MAGNESIUM 2.1 mg/dl (1.7-2.5); PHOSPHORUS 3.2 mg/dl (2.5-4.9)
[2017-04-08 06:55] LABS: CREATININE 1.87 mg/dl (0.61-1.24); POTASSIUM 3.8 mmol/L (3.5-5.1)
[2017-04-08 08:21] VITALS: BP 97/59; RESP 18
[2017-04-08] MEDS: MEROPENEM 1 GM/50ML(PMX) 50 ML IVPB SCH ×2 (08:56→20:36)
[2017-04-08] MEDS: HEPARIN 5,000 UNIT/0.5 ML VIAL SC SCH (09:06)
[2017-04-08] MEDS: Insulin NOVOLOG SS MODERATE Algorithm (SS with meals and bedtime) SC SCH ×4 (09:06→20:43)
[2017-04-08] MEDS: LINEZOLID 600 MG/D5W (PMX) 300 ML IVPB SCH ×2 (10:28→21:37)
[2017-04-08] MEDS: TPN 1,000 ML IV SCH (11:47)
[2017-04-08] MEDS: ONDANSETRON 4 MG INJ IV PRN (11:57)
--- NOTE | 2017-04-08 13:02 | PN ---
Date/Time of Note Date/Time of Note DATE: 04/08/17 TIME: 12:58 Assessment/Plan Lines/Catheters IV Catheter Type (from [facility]): PICC Line Tomas in Place (from [facility]): No Assessment/Plan Chief Complaint/Hosp Course 1. Multiple ostomies and ileal conduit: all ostomies pink and moist; s/p multiple Perforated viscous w small bowel proximal looped ostomy (minimum 6 month wait prior to considering attempting abdominal re-exploration) -continue ostomy care -continue oral feed, TPN -continue local abdominal wound care-w vac -oral diet as tolerated with protein shakes and probiotics -oob/ambulate -urology 2. UTI (polymicrobial, complicated) -abx/antimicrobials per sensitivity -frequent bladder emptying/cath care -urology 3. Malnutrition: tolerating solid diet -continue tpn -vitamins, probiotics, and nutritional supplements -nutrition consult 4. MANA: improving -judicious fluids -limit nephrotoxic meds -per renal 5. Bladder cancer: s/p chemo/radiation, s/p cystoprostatectomy with urinary diversion -per oncology/urology 6. Normocytic hypochromic anemia: no overt bleed noted -monitor -transfuse as needed -further workup per medical team Thank you. Patient seen and examined in collaboration with Dr. Bang Ross Problems: Subjective 24 Hr Interval Summary Min nausea, no vomiting. Min pain. All ostomies draining well. Wound vac in place. Continues on tpn. No fevers, sob, congested cough, cp, palpitations, craig, dizziness, n/v. Exam/Review of Systems Vital Signs Vitals Vital Signs Date Time Temp Pulse Resp B/P Pulse Ox O2 Delivery O2 Flow Rate FiO2 04/08/17 08:21 97.8 78 18 97/59 100 04/05/17 08:20 Room Air Intake and Output 04/07/17 04/07/17 04/08/17 15:00 23:00 07:00 Intake Total 350 ml 2570 ml 1230 ml Output Total 2500 ml 1000 ml Balance 350 ml 70 ml 230 ml Exam Free Text/Dictation Constitutional: alert, frail, oriented Psych: nl mood/affect, no complaints Head: atraumatic, normocephalic Eyes: nl lids, nl sclera ENMT: mucosa pink and moist, nl nasal mucosa & septum Neck: non-tender, supple Respiratory: normal air movement Cardiovascular: nl pulses, regular rate and rhythm Gastrointestinal: non-tender, other (ileostomy, colostomy, urostomy), soft, wound, erythema Genitourinary - Male: nl penis, nl scrotum; ileal conduit with mucous/sediment output Musculoskeletal: nl extremities to inspection, nl gait and stance Extremities: normal pulses, No edema Neurological: nl mental status, nl speech Skin: nl turgor, rash or lesions; wound vac to lower abdomen Results Result Diagram: 04/08/17 0448 04/08/17 0448 IFTIKHAR ROBERTSON NP Apr 08, 2017 13:02
--- NOTE | 2017-04-08 13:50 | CONS ---
Date/Time of Note Date/Time of Note DATE: 04/08/17 TIME: 13:49 Consult Date/Type/Reason Admit Date/Time Mar 30, 2017 at 02:24 Initial Consult Date 04/01/17 Type of Consultation: ID Ordering Provider: ALLISON HAYWARD Objective Vital Signs Date Time Temp Pulse Resp B/P Pulse Ox O2 Delivery O2 Flow Rate FiO2 04/08/17 08:21 97.8 78 18 97/59 100 04/05/17 08:20 Room Air Intake and Output 04/07/17 04/07/17 04/08/17 15:00 23:00 07:00 Intake Total 350 ml 2570 ml 1230 ml Output Total 2500 ml 1000 ml Balance 350 ml 70 ml 230 ml Results/Medications Result Diagram: 04/08/17 0448 04/08/178 Results 24 hrs Laboratory Tests Test 04/07/17 17:57 04/07/17 20:18 04/08/17 04:48 04/08/17 08:55 Bedside Glucose 109 111 167 White Blood Count 8.0 # Red Blood Count 3.47 L Hemoglobin 9.5 L Hematocrit 29.6 L Mean Corpuscular Volume 85.3 Mean Corpuscular Hemoglobin 27.4 L Mean Corpuscular Hemoglobin Concent 32.1 Red Cell Distribution Width 15.1 H Platelet Count 276 Mean Platelet Volume 9.2 Neutrophils % 68.1 Lymphocytes % 21.8 Monocytes % 8.0 Eosinophils % 0.9 Basophils % 0.4 Nucleated Red Blood Cells % 0.0 Neutrophils # 5.5 Lymphocytes # 1.7 Monocytes # 0.6 Eosinophils # 0.1 Basophils # 0.0 Nucleated Red Blood Cells # 0.0 Sodium Level 134 L Potassium Level 3.8 Chloride Level 102 Carbon Dioxide Level 18 L Anion Gap 18 H Blood Urea Nitrogen 52 H Creatinine 1.87 H Glucose Level 135 Calcium Level 9.0 Phosphorus Level 3.2 Magnesium Level 2.1 Test 04/08/17 11:48 Bedside Glucose 148 Medications Current Medications Ondansetron HCl (Zofran Inj) 4 mg Q6H PRN IV NAUSEA AND/OR VOMITING Last administered on 04/08/17 11:57; Admin Dose 4 MG; Start 03/30/17 at 03:30 Heparin Sodium (Porcine) (Heparin (5000 Units/0.5 ml)) 5,000 unit DAILY SC Last administered on 04/08/17 09:06; Admin Dose 5,000 UNIT; Start 03/30/17 at 09:00 Oxycodone/ Acetaminophen 1 tab 1 tab Q4H PRN PO PAIN; Start 03/30/17 at 06:00 Total Parenteral Nutrition (Tpn) 1,000 ml @ 70 mls/hr [id number] IV Last administered on 04/08/17 11:47; Admin Dose 70 MLS/HR; Start 03/31/17 at 15:00 Insulin Glargine (Lantus) 10 unit HS SC Last administered on 04/07/17 20:28; Admin Dose 10 UNIT; Start 04/01/17 at 21:00 Miscellaneous Information 1 ea NOTE XX ; Start 03/31/17 at 21:00 Glucose (Glutose) 15 gm Q15M PRN PO DECREASED GLUCOSE; Start 03/31/17 at 21:00 Glucose (Glutose) 22.5 gm Q15M PRN PO DECREASED GLUCOSE; Start 03/31/17 at 21: 00 Dextrose (D50w Syringe) 25 ml Q15M PRN IV DECREASED GLUCOSE; Start 03/31/17 at 21:00 Dextrose (D50w Syringe) 50 ml Q15M PRN IV DECREASED GLUCOSE; Start 03/31/17 at 21:00 Glucagon (Glucagen) 1 mg Q15M PRN IM DECREASED GLUCOSE; Start 03/31/17 at 21: 00 Glucose 15 gm 15 gm Q15M PRN BUCCAL DECREASED GLUCOSE; Start 03/31/17 at 21:00 Meropenem/Sodium Chloride 50 ml @ 100 mls/hr Q12 IVPB Last administered on 08:56; Admin Dose 100 MLS/HR; Start 04/01/17 at 21:00 Linezolid (Zyvox 600mg/D5W (Pmx)) 300 ml @ 300 mls/hr Q12 IVPB Last administered on 04/08/17 10:28; Admin Dose 300 MLS/HR; Start 04/02/17 at 11:30 Diagnostic Test (Pha) (Accu-Chek) 1 ea 02 XX ; Start 04/06/17 at 02:00 Morphine Sulfate (morphine) 2 mg Q3H PRN IV PAIN Last administered on 12:44; Admin Dose 2 MG; Start 04/06/17 at 22:30 Assessment/Plan Chief Complaint/Hosp Course SUBJECTIVE: No events overnight. The patient is alert, denies pain, looks comfortable, no fevers. MICROBIOLOGY: Urine culture grew Escherichia coli extended-spectrum beta- lactamase and Enterococcus species. ANTIMICROBIALS: Meropenem and Zyvox. PHYSICAL EXAMINATION: GENERAL: This is a cachectic, chronically ill-appearing, elderly man who is in no distress. HEENT: Head atraumatic, normocephalic. Sclerae anicteric. NECK: Supple. CHEST: Rise symmetrical. Breath sounds diminished to bases. HEART: S1, S2. ABDOMEN: Soft, bowel tones present. EXTREMITIES: Without cyanosis. ASSESSMENT: 1. Recurrent urinary tract infection. 2. History of bladder and prostate cancer, status post chemoradiation and cystoprostatectomy with urinary diversion and ileostomy conduit. 3. History of perforated viscus repair and multiple pelvic abscess pseudocyst drainages. 4. Acute kidney failure with a history of obstructive uropathy with bilateral JJ stent placement. 5. Cachexia. PLAN: The patient remains stable. Continue present care, complete abx for couple more days. Follow recommendations of specialists. ROBIN pt Problems: KING MARQUES NP Apr 08, 2017 13:50
[2017-04-08 14:00] VITALS: BP 94/60; RESP 18
--- NOTE | 2017-04-08 14:07 | PN ---
Date/Time of Note Date/Time of Note DATE: 04/08/17 TIME: 14:06 Assessment/Plan VTE Prophylaxis VTE Prophylaxis Intervention: heparin Lines/Catheters IV [facility] Type (from [facility]): PICC Line Central line still needed: Yes Urinary Cath still in place: No Assessment/Plan Chief Complaint/Hosp Course 1. Complicated urinary tract infection with polymicrobial's including E. coli ESBL. Continue antimicrobials as per infectious diseases. 2. Acute nonoliguric kidney injury. Etiology unclear. The patient being followed by nephrology. Use nephrotoxic drugs with caution. 3. Bladder cancer. Status post radical cystoprostatectomy and creation of ileal conduit with colonic diversion for fistula formation. 4. Status post perforated viscus repair complicated by intra-abdominal abscess requiring CT-guided drainage on previous admission. The patient has an abdominal wound vac in place. Being followed by surgery. 5. Severe protein calorie malnutrition. Patient on TPN. The patient on a mechanical soft diet. 6. Normocytic anemia. Etiology unclear. Probably anemia of chronic disease. 7. Fluids, electrolytes, and nutrition. TPN. Mechanical soft diet. 8. DVT prophylaxis. Subcutaneous heparin. 9. Plan. Continue antimicrobials. Await further recommendations from consultants. DC Planning to SNF. Case discussed with Dr. Baez. Problems: Subjective 24 Hr Interval Summary Free Text/Dictation The patient remains afebrile. Exam/Review of Systems Vital Signs Vitals Vital Signs Date Time Temp Pulse Resp B/P Pulse Ox O2 Delivery O2 Flow Rate FiO2 04/08/17 08:21 97.8 78 18 97/59 100 04/05/17 08:20 Room Air Intake and Output 04/07/17 04/07/17 04/08/17 15:00 23:00 07:00 Intake Total 350 ml 2570 ml 1230 ml Output Total 2500 ml 1000 ml Balance 350 ml 70 ml 230 ml Exam General:, Thin, frail looking 66 year-old male lying in bed in no apparent distress. HEENT: Normocephalic, atraumatic. Eyes: Anicteric sclerae, conjunctivae clear. ENT: Nasal septum midline, oral mucosa moist. Neck supple, no JVD noticed. Respiratory: Bilaterally diminished breath sounds. No use of accessory muscles of respiration. No adventitious breath sounds. Cardiovascular: S1, S2 heard. No murmurs or gallops. Abdomen: Soft, nontender, and nondistended. Abdominal wall wound Vac. Ileostomy draining light brown liquid output (less amount). Colostomy pink bud moist. Ileal conduit. Genitourinary: Deferred. Extremities: No cyanosis, no clubbing, no edema. Peripheral pulses palpable. Neurologic: Cranial nerves II through XII grossly intact. The patient is awake, alert, and oriented. Skin: Normal skin turgor. No skin rashes. Results Result Diagram: 04/08/17 0448 04/08/178 Results 24 hrs Laboratory Tests Test 04/07/17 17:57 04/07/17 20:18 04/08/17 04:48 04/08/17 08:55 Bedside Glucose 109 111 167 White Blood Count 8.0 # Red Blood Count 3.47 L Hemoglobin 9.5 L Hematocrit 29.6 L Mean Corpuscular Volume 85.3 Mean Corpuscular Hemoglobin 27.4 L Mean Corpuscular Hemoglobin Concent 32.1 Red Cell Distribution Width 15.1 H Platelet Count 276 Mean Platelet Volume 9.2 Neutrophils % 68.1 Lymphocytes % 21.8 Monocytes % 8.0 Eosinophils % 0.9 Basophils % 0.4 Nucleated Red Blood Cells % 0.0 Neutrophils # 5.5 Lymphocytes # 1.7 Monocytes # 0.6 Eosinophils # 0.1 Basophils # 0.0 Nucleated Red Blood Cells # 0.0 Sodium Level 134 L Potassium Level 3.8 Chloride Level 102 Carbon Dioxide Level 18 L Anion Gap 18 H Blood Urea Nitrogen 52 H Creatinine 1.87 H Glucose Level 135 Calcium Level 9.0 Phosphorus Level 3.2 Magnesium Level 2.1 Test 04/08/17 11:48 Bedside Glucose 148 Medications Medications Current Medications Ondansetron HCl (Zofran Inj) 4 mg Q6H PRN IV NAUSEA AND/OR VOMITING Last administered on 04/08/17 11:57; Admin Dose 4 MG; Start 03/30/17 at 03:30 Heparin Sodium (Porcine) (Heparin (5000 Units/0.5 ml)) 5,000 unit DAILY SC Last administered on 04/08/17 09:06; Admin Dose 5,000 UNIT; Start 03/30/17 at 09:00 Oxycodone/ Acetaminophen 1 tab 1 tab Q4H PRN PO PAIN; Start 03/30/17 at 06:00 Total Parenteral Nutrition (Tpn) 1,000 ml @ 70 mls/hr [id number] IV Last administered on 04/08/17 11:47; Admin Dose 70 MLS/HR; Start 03/31/17 at 15:00 Insulin Glargine (Lantus) 10 unit HS SC Last administered on 04/07/17 20:28; Admin Dose 10 UNIT; Start 04/01/17 at 21:00 Miscellaneous Information 1 ea NOTE XX ; Start 03/31/17 at 21:00 Glucose (Glutose) 15 gm Q15M PRN PO DECREASED GLUCOSE; Start 03/31/17 at 21:00 Glucose (Glutose) 22.5 gm Q15M PRN PO DECREASED GLUCOSE; Start 03/31/17 at 21: 00 Dextrose (D50w Syringe) 25 ml Q15M PRN IV DECREASED GLUCOSE; Start 03/31/17 at 21:00 Dextrose (D50w Syringe) 50 ml Q15M PRN IV DECREASED GLUCOSE; Start 03/31/17 at 21:00 Glucagon (Glucagen) 1 mg Q15M PRN IM DECREASED GLUCOSE; Start 03/31/17 at 21: 00 Glucose 15 gm 15 gm Q15M PRN BUCCAL DECREASED GLUCOSE; Start 03/31/17 at 21:00 Meropenem/Sodium Chloride 50 ml @ 100 mls/hr Q12 IVPB Last administered on 08:56; Admin Dose 100 MLS/HR; Start 04/01/17 at 21:00 Linezolid (Zyvox 600mg/D5W (Pmx)) 300 ml @ 300 mls/hr Q12 IVPB Last administered on 04/08/17 10:28; Admin Dose 300 MLS/HR; Start 04/02/17 at 11:30 Diagnostic Test (Pha) (Accu-Chek) 1 ea 02 XX ; Start 04/06/17 at 02:00 Morphine Sulfate (morphine) 2 mg Q3H PRN IV PAIN Last administered on 12:44; Admin Dose 2 MG; Start 04/06/17 at 22:30 BRENDA PETTIT NP Apr 08, 2017 14:07
[2017-04-08 16:45] VITALS: BP 97/59; PULSE 82; RESP 16
--- NOTE | 2017-04-08 17:18 | CONS ---
Date/Time of Note Date/Time of Note DATE: 04/08/17 TIME: 17:16 Assessment/Plan Assessment/Plan Additional Assessment/Plan 1. acute kidney injury Non oliguric 2. H/o ESBL UTI 3.history of bladder cancer s/p TURBT, chemotherapy/radiation, urethral damage, chemo/radiation induced urinary and fecal incontinence. He underwent cystoprostatectomy with urinary diversion, ileal conduit, colonic diversion for fistula on last admission Plan: pt had a full CKD work up done on last admission, no need to repeat it Continue IV Abx meropenem, zyvox , renally dosed off IVF now, on TPN at 70 cc/hr - Cr 1.87 will continue to follow up Consultation Date/Type/Reason Admit Date/Time Mar 30, 2017 at 02:24 Initial Consult Date 03/30/17 Type of Consultation: NEPHROLOGY Referring Provider: ALLISON HAYWARD 24 HR Interval Summary Free Text/Dictation Cr 1.87, Na 134, HCo3 18 Exam/Review of Systems Vital Signs Vitals Vital Signs Date Time Temp Pulse Resp B/P Pulse Ox O2 Delivery O2 Flow Rate FiO2 04/08/17 16:45 97.6 82 16 97/59 100 Room Air Intake and Output 04/07/17 04/07/17 04/08/17 15:00 23:00 07:00 Intake Total 350 ml 2570 ml 1230 ml Output Total 2500 ml 1000 ml Balance 350 ml 70 ml 230 ml Exam Constitutional: other (Patient appears weak. No acute distress. He is cachectic) Head: atraumatic, normocephalic Eyes: EOMI, PERRL Respiratory: clear to auscultation, normal air movement Cardiovascular: nl pulses, regular rate and rhythm Gastrointestinal: other (Scaphoid abdomen. Urostomy, colostomy and ileal conduit) Extremities: normal pulses Results Result Diagram: 04/08/17 0448 04/08/17 0448 Results 24 hrs Laboratory Tests Test 04/07/17 17:57 04/07/17 20:18 04/08/17 04:48 04/08/17 08:55 Bedside Glucose 109 111 167 White Blood Count 8.0 # Red Blood Count 3.47 L Hemoglobin 9.5 L Hematocrit 29.6 L Mean Corpuscular Volume 85.3 Mean Corpuscular Hemoglobin 27.4 L Mean Corpuscular Hemoglobin Concent 32.1 Red Cell Distribution Width 15.1 H Platelet Count 276 Mean Platelet Volume 9.2 Neutrophils % 68.1 Lymphocytes % 21.8 Monocytes % 8.0 Eosinophils % 0.9 Basophils % 0.4 Nucleated Red Blood Cells % 0.0 Neutrophils # 5.5 Lymphocytes # 1.7 Monocytes # 0.6 Eosinophils # 0.1 Basophils # 0.0 Nucleated Red Blood Cells # 0.0 Sodium Level 134 L Potassium Level 3.8 Chloride Level 102 Carbon Dioxide Level 18 L Anion Gap 18 H Blood Urea Nitrogen 52 H Creatinine 1.87 H Glucose Level 135 Calcium Level 9.0 Phosphorus Level 3.2 Magnesium Level 2.1 Test 04/08/17 11:48 Bedside Glucose 148 Medications Medications Current Medications Ondansetron HCl (Zofran Inj) 4 mg Q6H PRN IV NAUSEA AND/OR VOMITING Last administered on 04/08/17 11:57; Admin Dose 4 MG; Start 03/30/17 at 03:30 Heparin Sodium (Porcine) (Heparin (5000 Units/0.5 ml)) 5,000 unit DAILY SC Last administered on 04/08/17 09:06; Admin Dose 5,000 UNIT; Start 03/30/17 at 09:00 Oxycodone/ Acetaminophen 1 tab 1 tab Q4H PRN PO PAIN; Start 03/30/17 at 06:00 Total Parenteral Nutrition (Tpn) 1,000 ml @ 70 mls/hr [id number] IV Last administered on 04/08/17 11:47; Admin Dose 70 MLS/HR; Start 03/31/17 at 15:00 Insulin Glargine (Lantus) 10 unit HS SC Last administered on 04/07/17 20:28; Admin Dose 10 UNIT; Start 04/01/17 at 21:00 Miscellaneous Information 1 ea NOTE XX ; Start 03/31/17 at 21:00 Glucose (Glutose) 15 gm Q15M PRN PO DECREASED GLUCOSE; Start 03/31/17 at 21:00 Glucose (Glutose) 22.5 gm Q15M PRN PO DECREASED GLUCOSE; Start 03/31/17 at 21: 00 Dextrose (D50w Syringe) 25 ml Q15M PRN IV DECREASED GLUCOSE; Start 03/31/17 at 21:00 Dextrose (D50w Syringe) 50 ml Q15M PRN IV DECREASED GLUCOSE; Start 03/31/17 at 21:00 Glucagon (Glucagen) 1 mg Q15M PRN IM DECREASED GLUCOSE; Start 03/31/17 at 21: 00 Glucose 15 gm 15 gm Q15M PRN BUCCAL DECREASED GLUCOSE; Start 03/31/17 at 21:00 Meropenem/Sodium Chloride 50 ml @ 100 mls/hr Q12 IVPB Last administered on 08:56; Admin Dose 100 MLS/HR; Start 04/01/17 at 21:00 Linezolid (Zyvox 600mg/D5W (Pmx)) 300 ml @ 300 mls/hr Q12 IVPB Last administered on 04/08/17 10:28; Admin Dose 300 MLS/HR; Start 04/02/17 at 11:30 Diagnostic Test (Pha) (Accu-Chek) 1 ea 02 XX ; Start 04/06/17 at 02:00 Morphine Sulfate (morphine) 2 mg Q3H PRN IV PAIN Last administered on 17:04; Admin Dose 2 MG; Start 04/06/17 at 22:30 MARGOT WOMACK MD Apr 08, 2017 17:18
[2017-04-08 20:18] VITALS: BP 90/50; RESP 20
[2017-04-08] MEDS: INSULIN GLARGINE [LANtus] 3 ML PEN SC SCH (20:37)
[2017-04-09] MEDS: morphine 2 MG INJ IV PRN ×7 (00:37→20:50)
[2017-04-09] MEDS: TPN 1,000 ML IV SCH ×2 (01:35→16:58)
[2017-04-09] MEDS: ACCUCHECK AT 2AM (Patients on SS coverage) XX SCH (01:40)
[2017-04-09 02:41] VITALS: BP 90/57; RESP 18
[2017-04-09 06:49] LABS: MAGNESIUM 2.4 mg/dl (1.7-2.5); PHOSPHORUS 3.7 mg/dl (2.5-4.9)
[2017-04-09 06:58] LABS: PREALBUMIN 26.7 mg/dl (17.6-36.0)
[2017-04-09 07:00] VITALS: BP 106/63; RESP 18
[2017-04-09 07:00] LABS: CALCIUM 9.2 mg/dl (8.4-10.2); CREATININE 1.97 mg/dl (0.61-1.24); POTASSIUM 4.3 mmol/L (3.5-5.1)
[2017-04-09] MEDS: Insulin NOVOLOG SS MODERATE Algorithm (SS with meals and bedtime) SC SCH ×4 (07:50→20:24)
[2017-04-09] MEDS: MEROPENEM 1 GM/50ML(PMX) 50 ML IVPB SCH ×2 (08:14→20:25)
[2017-04-09] MEDS: LINEZOLID 600 MG/D5W (PMX) 300 ML IVPB SCH ×2 (08:51→21:07)
[2017-04-09] MEDS: HEPARIN 5,000 UNIT/0.5 ML VIAL SC SCH (09:06)
--- NOTE | 2017-04-09 09:20 | PN ---
Date/Time of Note Date/Time of Note DATE: 04/09/17 TIME: 09:19 Assessment/Plan VTE Prophylaxis VTE Prophylaxis Intervention: heparin Lines/Catheters IV Catheter Type (from [facility]): PICC Line Central line still needed: Yes Urinary Cath still in place: No Assessment/Plan Chief Complaint/Hosp Course 1. Complicated urinary tract infection with polymicrobial's including E. coli ESBL. Continue antimicrobials as per infectious diseases. 2. Acute nonoliguric kidney injury. Etiology unclear. The patient being followed by nephrology. Use nephrotoxic drugs with caution. 3. Bladder cancer. Status post radical cystoprostatectomy and creation of ileal conduit with colonic diversion for fistula formation. 4. Status post perforated viscus repair complicated by intra-abdominal abscess requiring CT-guided drainage on previous admission. The patient has an abdominal wound vac in place. Being followed by surgery. 5. Severe protein calorie malnutrition. Patient on TPN. The patient on a mechanical soft diet. 6. Normocytic anemia. Etiology unclear. Probably anemia of chronic disease. 7. Fluids, electrolytes, and nutrition. TPN. Mechanical soft diet. 8. DVT prophylaxis. Subcutaneous heparin. 9. Plan. Continue antimicrobials. Await further recommendations from consultants. DC Planning to SNF. Case discussed with Dr. Baez. Problems: Subjective 24 Hr Interval Summary Free Text/Dictation Vital signs stable. No changes in status. Exam/Review of Systems Vital Signs Vitals Vital Signs Date Time Temp Pulse Resp B/P Pulse Ox O2 Delivery O2 Flow Rate FiO2 04/09/17 07:00 98.9 71 18 106/63 99 04/08/17 16:45 Room Air Intake and Output 04/08/17 04/08/17 04/09/17 15:00 23:00 07:00 Intake Total 720 ml 790 ml 1720 ml Output Total 1100 ml 1100 ml Balance 720 ml -310 ml 620 ml Exam General:, Thin, frail looking 66 year-old male lying in bed in no apparent distress. HEENT: Normocephalic, atraumatic. Eyes: Anicteric sclerae, conjunctivae clear. ENT: Nasal septum midline, oral mucosa moist. Neck supple, no JVD noticed. Respiratory: Bilaterally diminished breath sounds. No use of accessory muscles of respiration. No adventitious breath sounds. Cardiovascular: S1, S2 heard. No murmurs or gallops. Abdomen: Soft, nontender, and nondistended. Abdominal wall wound Vac. Ileostomy draining light brown liquid output (less amount). Colostomy pink bud moist. Ileal conduit. Genitourinary: Deferred. Extremities: No cyanosis, no clubbing, no edema. Peripheral pulses palpable. Neurologic: Cranial nerves II through XII grossly intact. The patient is awake, alert, and oriented. Skin: Normal skin turgor. No skin rashes. Results Result Diagram: 04/08/17 0448 04/09/17 0454 Results 24 hrs Laboratory Tests Test 04/08/17 11:48 04/08/17 17:39 04/08/17 20:30 04/09/17 04:54 Bedside Glucose 148 144 153 Sodium Level 135 Potassium Level 4.3 Chloride Level 103 Carbon Dioxide Level 21 Anion Gap 15 Blood Urea Nitrogen 56 H Creatinine 1.97 H Glucose Level 102 Calcium Level 9.2 Phosphorus Level 3.7 Magnesium Level 2.4 Prealbumin 26.7 Test 04/09/17 08:48 Bedside Glucose 110 Medications Medications Current Medications Ondansetron HCl (Zofran Inj) 4 mg Q6H PRN IV NAUSEA AND/OR VOMITING Last administered on 04/08/17 11:57; Admin Dose 4 MG; Start 03/30/17 at 03:30 Heparin Sodium (Porcine) (Heparin (5000 Units/0.5 ml)) 5,000 unit DAILY SC Last administered on 04/09/17 09:06; Admin Dose 5,000 UNIT; Start 03/30/17 at 09:00 Oxycodone/ Acetaminophen 1 tab 1 tab Q4H PRN PO PAIN; Start 03/30/17 at 06:00 Total Parenteral Nutrition (Tpn) 1,000 ml @ 70 mls/hr [id number] IV Last administered on 04/09/17 01:35; Admin Dose 70 MLS/HR; Start 03/31/17 at 15:00 Insulin Glargine (Lantus) 10 unit HS SC Last administered on 04/08/17 20:37; Admin Dose 10 UNIT; Start 04/01/17 at 21:00 Miscellaneous Information 1 ea NOTE XX ; Start 03/31/17 at 21:00 Glucose (Glutose) 15 gm Q15M PRN PO DECREASED GLUCOSE; Start 03/31/17 at 21:00 Glucose (Glutose) 22.5 gm Q15M PRN PO DECREASED GLUCOSE; Start 03/31/17 at 21: 00 Dextrose (D50w Syringe) 25 ml Q15M PRN IV DECREASED GLUCOSE; Start 03/31/17 at 21:00 Dextrose (D50w Syringe) 50 ml Q15M PRN IV DECREASED GLUCOSE; Start 03/31/17 at 21:00 Glucagon (Glucagen) 1 mg Q15M PRN IM DECREASED GLUCOSE; Start 03/31/17 at 21: 00 Glucose 15 gm 15 gm Q15M PRN BUCCAL DECREASED GLUCOSE; Start 03/31/17 at 21:00 Meropenem/Sodium Chloride 50 ml @ 100 mls/hr Q12 IVPB Last administered on 08:14; Admin Dose 100 MLS/HR; Start 04/01/17 at 21:00 Linezolid (Zyvox 600mg/D5W (Pmx)) 300 ml @ 300 mls/hr Q12 IVPB Last administered on 04/09/17 08:51; Admin Dose 300 MLS/HR; Start 04/02/17 at 11:30 Diagnostic Test (Pha) (Accu-Chek) 1 ea 02 XX ; Start 04/06/17 at 02:00 Morphine Sulfate (morphine) 2 mg Q3H PRN IV PAIN Last administered on 08:13; Admin Dose 2 MG; Start 04/06/17 at 22:30 BRENDA PETTIT NP Apr 09, 2017 09:20
--- NOTE | 2017-04-09 11:53 | CONS ---
Date/Time of Note Date/Time of Note DATE: 04/09/17 TIME: 11:52 Assessment/Plan Assessment/Plan Additional Assessment/Plan 1. acute kidney injury Non oliguric 2. H/o ESBL UTI 3.history of bladder cancer s/p TURBT, chemotherapy/radiation, urethral damage, chemo/radiation induced urinary and fecal incontinence. He underwent cystoprostatectomy with urinary diversion, ileal conduit, colonic diversion for fistula on last admission Plan: pt had a full CKD work up done on last admission, no need to repeat it Continue IV Abx meropenem, zyvox , renally dosed off IVF now, on TPN at 70 cc/hr - Cr again 1.9- will give NS x 2 liter then stop will continue to follow up Consultation Date/Type/Reason Admit Date/Time Mar 30, 2017 at 02:24 Initial Consult Date 03/30/17 Type of Consultation: NEPHROLOGY Referring Provider: ALLISON HAYWARD 24 HR Interval Summary Free Text/Dictation Cr again 1.9 Exam/Review of Systems Vital Signs Vitals Vital Signs Date Time Temp Pulse Resp B/P Pulse Ox O2 Delivery O2 Flow Rate FiO2 04/09/17 07:00 98.9 71 18 106/63 99 04/08/17 16:45 Room Air Intake and Output 04/08/17 04/08/17 04/09/17 15:00 23:00 07:00 Intake Total 720 ml 790 ml 1720 ml Output Total 1100 ml 1100 ml Balance 720 ml -310 ml 620 ml Exam Constitutional: other (Patient appears weak. No acute distress. He is cachectic) Head: atraumatic, normocephalic Eyes: EOMI, PERRL Respiratory: clear to auscultation, normal air movement Cardiovascular: nl pulses, regular rate and rhythm Gastrointestinal: other (Scaphoid abdomen. Urostomy, colostomy and ileal conduit) Extremities: normal pulses Results Result Diagram: 04/08/17 0448 04/09/17 0454 Results 24 hrs Laboratory Tests Test 04/08/17 17:39 04/08/17 20:30 04/09/17 04:54 04/09/17 08:48 Bedside Glucose 144 153 110 Sodium Level 135 Potassium Level 4.3 Chloride Level 103 Carbon Dioxide Level 21 Anion Gap 15 Blood Urea Nitrogen 56 H Creatinine 1.97 H Glucose Level 102 Calcium Level 9.2 Phosphorus Level 3.7 Magnesium Level 2.4 Prealbumin 26.7 Medications Medications Current Medications Ondansetron HCl (Zofran Inj) 4 mg Q6H PRN IV NAUSEA AND/OR VOMITING Last administered on 04/08/17 11:57; Admin Dose 4 MG; Start 03/30/17 at 03:30 Heparin Sodium (Porcine) (Heparin (5000 Units/0.5 ml)) 5,000 unit DAILY SC Last administered on 04/09/17 09:06; Admin Dose 5,000 UNIT; Start 03/30/17 at 09:00 Oxycodone/ Acetaminophen 1 tab 1 tab Q4H PRN PO PAIN; Start 03/30/17 at 06:00 Total Parenteral Nutrition (Tpn) 1,000 ml @ 70 mls/hr [id number] IV Last administered on 04/09/17 01:35; Admin Dose 70 MLS/HR; Start 03/31/17 at 15:00 Insulin Glargine (Lantus) 10 unit HS SC Last administered on 04/08/17 20:37; Admin Dose 10 UNIT; Start 04/01/17 at 21:00 Miscellaneous Information 1 ea NOTE XX ; Start 03/31/17 at 21:00 Glucose (Glutose) 15 gm Q15M PRN PO DECREASED GLUCOSE; Start 03/31/17 at 21:00 Glucose (Glutose) 22.5 gm Q15M PRN PO DECREASED GLUCOSE; Start 03/31/17 at 21: 00 Dextrose (D50w Syringe) 25 ml Q15M PRN IV DECREASED GLUCOSE; Start 03/31/17 at 21:00 Dextrose (D50w Syringe) 50 ml Q15M PRN IV DECREASED GLUCOSE; Start 03/31/17 at 21:00 Glucagon (Glucagen) 1 mg Q15M PRN IM DECREASED GLUCOSE; Start 03/31/17 at 21: 00 Glucose 15 gm 15 gm Q15M PRN BUCCAL DECREASED GLUCOSE; Start 03/31/17 at 21:00 Meropenem/Sodium Chloride 50 ml @ 100 mls/hr Q12 IVPB Last administered on 08:14; Admin Dose 100 MLS/HR; Start 04/01/17 at 21:00 Linezolid (Zyvox 600mg/D5W (Pmx)) 300 ml @ 300 mls/hr Q12 IVPB Last administered on 04/09/17 08:51; Admin Dose 300 MLS/HR; Start 04/02/17 at 11:30 Diagnostic Test (Pha) (Accu-Chek) 1 ea 02 XX ; Start 04/06/17 at 02:00 Morphine Sulfate (morphine) 2 mg Q3H PRN IV PAIN Last administered on 11:23; Admin Dose 2 MG; Start 04/06/17 at 22:30 MARGOT WOMACK MD Apr 09, 2017 11:53
[2017-04-09] MEDS: SOD CHLORIDE 0.9% 1,000 ML IV SCH (12:13)
--- NOTE | 2017-04-09 13:27 | CONS ---
Date/Time of Note Date/Time of Note DATE: 04/09/17 TIME: 13:27 Consult Date/Type/Reason Admit Date/Time Mar 30, 2017 at 02:24 Initial Consult Date 04/01/17 Type of Consultation: ID Ordering Provider: ALLISON HAYWARD Objective Vital Signs Date Time Temp Pulse Resp B/P Pulse Ox O2 Delivery O2 Flow Rate FiO2 04/09/17 07:00 98.9 71 18 106/63 99 04/08/17 16:45 Room Air Intake and Output 04/08/17 04/08/17 04/09/17 15:00 23:00 07:00 Intake Total 720 ml 790 ml 1720 ml Output Total 1100 ml 1100 ml Balance 720 ml -310 ml 620 ml Results/Medications Result Diagram: 04/08/17 0448 04/09/17 0454 Results 24 hrs Laboratory Tests Test 04/08/17 17:39 04/08/17 20:30 04/09/17 04:54 04/09/17 08:48 Bedside Glucose 144 153 110 Sodium Level 135 Potassium Level 4.3 Chloride Level 103 Carbon Dioxide Level 21 Anion Gap 15 Blood Urea Nitrogen 56 H Creatinine 1.97 H Glucose Level 102 Calcium Level 9.2 Phosphorus Level 3.7 Magnesium Level 2.4 Prealbumin 26.7 Test 04/09/17 12:54 Bedside Glucose 98 Medications Current Medications Ondansetron HCl (Zofran Inj) 4 mg Q6H PRN IV NAUSEA AND/OR VOMITING Last administered on 04/08/17 11:57; Admin Dose 4 MG; Start 03/30/17 at 03:30 Heparin Sodium (Porcine) (Heparin (5000 Units/0.5 ml)) 5,000 unit DAILY SC Last administered on 04/09/17 09:06; Admin Dose 5,000 UNIT; Start 03/30/17 at 09:00 Oxycodone/ Acetaminophen 1 tab 1 tab Q4H PRN PO PAIN; Start 03/30/17 at 06:00 Total Parenteral Nutrition (Tpn) 1,000 ml @ 70 mls/hr [id number] IV Last administered on 04/09/17 01:35; Admin Dose 70 MLS/HR; Start 03/31/17 at 15:00 Insulin Glargine (Lantus) 10 unit HS SC Last administered on 04/08/17 20:37; Admin Dose 10 UNIT; Start 04/01/17 at 21:00 Miscellaneous Information 1 ea NOTE XX ; Start 03/31/17 at 21:00 Glucose (Glutose) 15 gm Q15M PRN PO DECREASED GLUCOSE; Start 03/31/17 at 21:00 Glucose (Glutose) 22.5 gm Q15M PRN PO DECREASED GLUCOSE; Start 03/31/17 at 21: 00 Dextrose (D50w Syringe) 25 ml Q15M PRN IV DECREASED GLUCOSE; Start 03/31/17 at 21:00 Dextrose (D50w Syringe) 50 ml Q15M PRN IV DECREASED GLUCOSE; Start 03/31/17 at 21:00 Glucagon (Glucagen) 1 mg Q15M PRN IM DECREASED GLUCOSE; Start 03/31/17 at 21: 00 Glucose 15 gm 15 gm Q15M PRN BUCCAL DECREASED GLUCOSE; Start 03/31/17 at 21:00 Meropenem/Sodium Chloride 50 ml @ 100 mls/hr Q12 IVPB Last administered on 08:14; Admin Dose 100 MLS/HR; Start 04/01/17 at 21:00 Linezolid (Zyvox 600mg/D5W (Pmx)) 300 ml @ 300 mls/hr Q12 IVPB Last administered on 04/09/17 08:51; Admin Dose 300 MLS/HR; Start 04/02/17 at 11:30 Diagnostic Test (Pha) (Accu-Chek) 1 ea 02 XX ; Start 04/06/17 at 02:00 Morphine Sulfate 2 mg 2 mg Q3H PRN IV PAIN Last administered on 04/09/17 11:23 ; Admin Dose 2 MG; Start 04/06/17 at 22:30 Sodium Chloride (NS) 1,000 ml @ 60 mls/hr [id number] IV Last administered on 04/09 12:13; Admin Dose 60 MLS/HR; Start 04/09/17 at 12:00; Stop 04/10/17 at 21: 19 Assessment/Plan Chief Complaint/Hosp Course SUBJECTIVE: No events overnight. The patient is alert, denies pain, looks comfortable, no fevers. MICROBIOLOGY: Urine culture grew Escherichia coli extended-spectrum beta- lactamase and Enterococcus species. ANTIMICROBIALS: Meropenem and Zyvox. PHYSICAL EXAMINATION: GENERAL: This is a cachectic, chronically ill-appearing, elderly man who is in no distress. HEENT: Head atraumatic, normocephalic. Sclerae anicteric. NECK: Supple. CHEST: Rise symmetrical. Breath sounds diminished to bases. HEART: S1, S2. ABDOMEN: Soft, bowel tones present. EXTREMITIES: Without cyanosis. ASSESSMENT: 1. Recurrent urinary tract infection. 2. History of bladder and prostate cancer, status post chemoradiation and cystoprostatectomy with urinary diversion and ileostomy conduit. 3. History of perforated viscus repair and multiple pelvic abscess pseudocyst drainages. 4. Acute kidney failure with a history of obstructive uropathy with bilateral JJ stent placement. 5. Cachexia. PLAN: The patient remains stable. Will dc abx in am and observe, repeat cx's prn. Follow recommendations of specialists. ROBIN pt Problems: KING MARQUES NP Apr 09, 2017 13:27
[2017-04-09 14:00] VITALS: BP 96/55; RESP 18
[2017-04-09 16:24] VITALS: BP 95/55; PULSE 90; RESP 18
--- NOTE | 2017-04-09 16:49 | PN ---
Date/Time of Note Date/Time of Note DATE: 04/09/17 TIME: 16:45 Assessment/Plan Lines/Catheters IV Catheter Type (from [facility]): Central Line Tomas in Place (from [facility]): No Assessment/Plan Chief Complaint/Hosp Course 1. Multiple ostomies and ileal conduit: all ostomies pink and moist; s/p multiple Perforated viscous w small bowel proximal looped ostomy (minimum 6 month wait prior to considering attempting abdominal re-exploration) -continue ostomy care -continue oral feed, TPN, and supplements -continue local abdominal wound care-w vac -oral diet as tolerated with protein shakes and probiotics -oob/ambulate -urology 2. UTI (polymicrobial, complicated) -abx/antimicrobials per sensitivity -frequent bladder emptying/cath care -urology 3. Malnutrition: tolerating solid diet; nutrition consult noted -continue tpn -vitamins, probiotics, and nutritional supplements 4. MANA: -judicious fluids -limit nephrotoxic meds -per renal 5. Bladder cancer: s/p chemo/radiation, s/p cystoprostatectomy with urinary diversion -per oncology/urology 6. Normocytic hypochromic anemia: no overt bleed noted -monitor -transfuse as needed -further workup per medical team Thank you. Patient seen and examined in collaboration with Dr. Bang Ross Problems: Subjective 24 Hr Interval Summary Feels well. Continues on TPN and wound vac. Minimal pain. No fevers, chills, sob, congested cough, cp, palpitations, craig, dizziness, n/v/d/dysuria. Exam/Review of Systems Vital Signs Vitals Vital Signs Date Time Temp Pulse Resp B/P Pulse Ox O2 Delivery O2 Flow Rate FiO2 04/09/17 16:24 98.4 90 18 95/55 99 Room Air Intake and Output 04/08/17 04/08/17 04/09/17 15:00 23:00 07:00 Intake Total 720 ml 790 ml 1720 ml Output Total 1100 ml 1100 ml Balance 720 ml -310 ml 620 ml Exam Free Text/Dictation Constitutional: alert, frail, oriented Psych: nl mood/affect, no complaints Head: atraumatic, normocephalic Eyes: nl lids, nl sclera ENMT: mucosa pink and moist, nl nasal mucosa & septum Neck: non-tender, supple Respiratory: normal air movement Cardiovascular: nl pulses, regular rate and rhythm Gastrointestinal: non-tender, other (ileostomy, colostomy, urostomy), soft, wound, erythema Genitourinary - Male: nl penis, nl scrotum; ileal conduit with mucous/sediment output Musculoskeletal: nl extremities to inspection, nl gait and stance Extremities: normal pulses, No edema Neurological: nl mental status, nl speech Skin: nl turgor, rash or lesions; wound vac to lower abdomen Results Result Diagram: 04/08/17 0448 04/09/17 0454 IFTIKHAR ROBERTSON NP Apr 09, 2017 16:49
[2017-04-09 20:29] VITALS: BP 97/55; RESP 20
[2017-04-09] MEDS: INSULIN GLARGINE [LANtus] 3 ML PEN SC SCH (20:42)
[2017-04-10] MEDS: ONDANSETRON 4 MG INJ IV PRN ×2 (00:16→19:43)
[2017-04-10] MEDS: morphine 2 MG INJ IV PRN ×6 (01:18→21:39)
[2017-04-10] MEDS: ACCUCHECK AT 2AM (Patients on SS coverage) XX SCH ×2 (02:00→23:14)
[2017-04-10 02:35] VITALS: BP 102/55; RESP 20
[2017-04-10] MEDS: SOD CHLORIDE 0.9% 1,000 ML IV SCH (05:14)
[2017-04-10 05:51] VITALS: BP 109/62; PULSE 70; RESP 18
[2017-04-10 06:14] LABS: BASOPHILS % 0.1 % (0.0-2.0); EOSINOPHILS # 0.1 10^3/ul (0.0-0.5); EOSINOPHILS % 1.5 % (0.0-7.0); HEMATOCRIT 25.7 % (42.0-52.0); HEMOGLOBIN 8.3 g/dl (14.0-18.0); LYMPHOCYTES # 2.1 10^3/ul (0.8-2.9); LYMPHOCYTES % 28.3 % (15.0-51.0); MEAN CORPUSCULAR HEMOGLOBIN 27.5 pg (29.0-33.0); MEAN CORPUSCULAR HGB CONC 32.3 g/dl (32.0-37.0); MEAN CORPUSCULAR VOLUME 85.1 fl (82.0-101.0); MEAN PLATELET VOLUME 9.1 fl (7.4-10.4); MONOCYTE # 0.5 10^3/ul (0.3-0.9); MONOCYTES % 6.7 % (0.0-11.0); NEUTROPHIL # 4.8 10^3/ul (1.6-7.5); PLATELET COUNT 211 10^3/UL (140-415); RED BLOOD COUNT 3.02 10^6/ul (4.70-6.10); WHITE BLOOD COUNT 7.6 10^3/ul (4.8-10.8)
[2017-04-10] MEDS: ALTEPLASE (CATHFLO) 2 MG INJ CATHETER PRN ×2 (06:33→10:12)
[2017-04-10 07:00] LABS: MAGNESIUM 2.2 mg/dl (1.7-2.5); PHOSPHORUS 3.5 mg/dl (2.5-4.9)
[2017-04-10 07:06] LABS: CALCIUM 8.6 mg/dl (8.4-10.2); CREATININE 1.81 mg/dl (0.61-1.24)
[2017-04-10] MEDS: Insulin NOVOLOG SS MODERATE Algorithm (SS with meals and bedtime) SC SCH ×4 (07:50→21:00)
[2017-04-10 08:12] VITALS: BP 136/57; RESP 18
--- NOTE | 2017-04-10 09:22 | PN ---
Date/Time of Note Date/Time of Note DATE: 04/10/17 TIME: 09:21 Assessment/Plan VTE Prophylaxis VTE Prophylaxis Intervention: heparin Lines/Catheters IV [facility]ter Type (from [facility]): PICC Line Central line still needed: Yes Urinary Cath still in place: No Assessment/Plan Chief Complaint/Hosp Course 1. Complicated urinary tract infection with polymicrobial's including E. coli ESBL. Status post antimicrobials as per infectious diseases. 2. Acute nonoliguric kidney injury. Etiology unclear. The patient being followed by nephrology. Use nephrotoxic drugs with caution. 3. Bladder cancer. Status post radical cystoprostatectomy and creation of ileal conduit with colonic diversion for fistula formation. 4. Status post perforated viscus repair complicated by intra-abdominal abscess requiring CT-guided drainage on previous admission. The patient has an abdominal wound vac in place. Being followed by surgery. 5. Severe protein calorie malnutrition. Patient on TPN. The patient on a mechanical soft diet. 6. Normocytic anemia. Etiology unclear. Probably anemia of chronic disease. 7. Fluids, electrolytes, and nutrition. TPN. Mechanical soft diet. 8. DVT prophylaxis. Subcutaneous heparin. 9. Plan. Antimicrobials has been discontinued. DC Planning to SNF. Case discussed with Dr. Baez. Problems: Subjective 24 Hr Interval Summary Free Text/Dictation The patient remains afebrile. Exam/Review of Systems Vital Signs Vitals Vital Signs Date Time Temp Pulse Resp B/P Pulse Ox O2 Delivery O2 Flow Rate FiO2 04/10/17 08:12 98.5 73 18 136/57 100 04/10/17 05:51 Room Air Intake and Output 04/09/17 04/09/17 04/10/17 15:00 23:00 07:00 Intake Total 1910 ml 2390 ml Output Total 3500 ml 2350 ml Balance -1590 ml 40 ml Exam General:, Thin, frail looking 66 year-old male lying in bed in no apparent distress. HEENT: Normocephalic, atraumatic. Eyes: Anicteric sclerae, conjunctivae clear. ENT: Nasal septum midline, oral mucosa moist. Neck supple, no JVD noticed. Respiratory: Bilaterally diminished breath sounds. No use of accessory muscles of respiration. No adventitious breath sounds. Cardiovascular: S1, S2 heard. No murmurs or gallops. Abdomen: Soft, nontender, and nondistended. Abdominal wall wound Vac. Ileostomy draining light brown liquid output (less amount). Colostomy pink bud moist. Ileal conduit. Genitourinary: Deferred. Extremities: No cyanosis, no clubbing, no edema. Peripheral pulses palpable. Neurologic: Cranial nerves II through XII grossly intact. The patient is awake, alert, and oriented. Skin: Normal skin turgor. No skin rashes. Results Result Diagram: 04/10/1714 04/10/17513 Results 24 hrs Laboratory Tests Test 04/09/17 12:54 04/09/17 17:33 04/09/17 20:22 04/10/17 05:14 Bedside Glucose 98 174 118 White Blood Count 7.6 Red Blood Count 3.02 L Hemoglobin 8.3 L Hematocrit 25.7 L Mean Corpuscular Volume 85.1 Mean Corpuscular Hemoglobin 27.5 L Mean Corpuscular Hemoglobin Concent 32.3 Red Cell Distribution Width 15.0 H Platelet Count 211 # Mean Platelet Volume 9.1 Neutrophils % 63.0 Lymphocytes % 28.3 Monocytes % 6.7 Eosinophils % 1.5 Basophils % 0.1 Nucleated Red Blood Cells % 0.0 Neutrophils # 4.8 Lymphocytes # 2.1 Monocytes # 0.5 Eosinophils # 0.1 Basophils # 0.0 Nucleated Red Blood Cells # 0.0 Sodium Level 135 Potassium Level 4.0 Chloride Level 106 Carbon Dioxide Level 19 L Anion Gap 14 Blood Urea Nitrogen 56 H Creatinine 1.81 H Glucose Level 108 Calcium Level 8.6 Phosphorus Level 3.5 Magnesium Level 2.2 Test 04/10/17 08:32 Bedside Glucose 85 Medications Medications Current Medications Ondansetron HCl (Zofran Inj) 4 mg Q6H PRN IV NAUSEA AND/OR VOMITING Last administered on 04/10/17 00:16; Admin Dose 4 MG; Start 03/30/17 at 03:30 Heparin Sodium (Porcine) (Heparin (5000 Units/0.5 ml)) 5,000 unit DAILY SC Last administered on 04/09/17 09:06; Admin Dose 5,000 UNIT; Start 03/30/17 at 09:00 Oxycodone/ Acetaminophen 1 tab 1 tab Q4H PRN PO PAIN; Start 03/30/17 at 06:00 Total Parenteral Nutrition (Tpn) 1,000 ml @ 70 mls/hr [id number] IV Last administered on 04/09/17 16:58; Admin Dose 70 MLS/HR; Start 03/31/17 at 15:00 Insulin Glargine (Lantus) 10 unit HS SC Last administered on 04/09/17 20:42; Admin Dose 10 UNIT; Start 04/01/17 at 21:00 Miscellaneous Information 1 ea NOTE XX ; Start 03/31/17 at 21:00 Glucose (Glutose) 15 gm Q15M PRN PO DECREASED GLUCOSE; Start 03/31/17 at 21:00 Glucose (Glutose) 22.5 gm Q15M PRN PO DECREASED GLUCOSE; Start 03/31/17 at 21: 00 Dextrose (D50w Syringe) 25 ml Q15M PRN IV DECREASED GLUCOSE; Start 03/31/17 at 21:00 Dextrose (D50w Syringe) 50 ml Q15M PRN IV DECREASED GLUCOSE; Start 03/31/17 at 21:00 Glucagon (Glucagen) 1 mg Q15M PRN IM DECREASED GLUCOSE; Start 03/31/17 at 21: 00 Glucose (Glutose) 15 gm Q15M PRN BUCCAL DECREASED GLUCOSE; Start 03/31/17 at 21:00 Diagnostic Test (Pha) (Accu-Chek) 1 ea 02 XX ; Start 04/06/17 at 02:00 Morphine Sulfate 2 mg 2 mg Q3H PRN IV PAIN Last administered on 04/10/17 05:12 ; Admin Dose 2 MG; Start 04/06/17 at 22:30 Sodium Chloride (NS) 1,000 ml @ 60 mls/hr [id number] IV Last administered on 04/10 05:14; Admin Dose 60 MLS/HR; Start 04/09/17 at 12:00; Stop 04/10/17 at 21: 19 BRENDA PETTIT NP Apr 10, 2017 09:22
[2017-04-10] MEDS: HEPARIN 5,000 UNIT/0.5 ML VIAL SC SCH (10:15)
--- NOTE | 2017-04-10 12:29 | CONS ---
Date/Time of Note Date/Time of Note DATE: 04/10/17 TIME: 12:28 Assessment/Plan Assessment/Plan Additional Assessment/Plan 1. acute kidney injury Non oliguric 2. H/o ESBL UTI 3.history of bladder cancer s/p TURBT, chemotherapy/radiation, urethral damage, chemo/radiation induced urinary and fecal incontinence. He underwent cystoprostatectomy with urinary diversion, ileal conduit, colonic diversion for fistula on last admission Plan: pt had a full CKD work up done on last admission, no need to repeat it Continue IV Abx meropenem, zyvox , renally dosed on TPN at 70 cc/hr - Cr again 1.81- finish NS x 2 liter then stop will continue to follow up Consultation Date/Type/Reason Admit Date/Time Mar 30, 2017 at 02:24 Initial Consult Date 03/30/17 Type of Consultation: NEPHROLOGY Referring Provider: ALLISON HAYWARD 24 HR Interval Summary Free Text/Dictation Cr 1.81, BP stable Exam/Review of Systems Vital Signs Vitals Vital Signs Date Time Temp Pulse Resp B/P Pulse Ox O2 Delivery O2 Flow Rate FiO2 04/10/17 08:12 98.5 73 18 136/57 100 04/10/17 05:51 Room Air Intake and Output 04/09/17 04/09/17 04/10/17 15:00 23:00 07:00 Intake Total 1910 ml 2390 ml Output Total 3500 ml 2350 ml Balance -1590 ml 40 ml Exam Constitutional: other (Patient appears weak. No acute distress. He is cachectic) Head: atraumatic, normocephalic Eyes: EOMI, PERRL Respiratory: clear to auscultation, normal air movement Cardiovascular: nl pulses, regular rate and rhythm Gastrointestinal: other (Scaphoid abdomen. Urostomy, colostomy and ileal conduit) Extremities: normal pulses Results Result Diagram: 04/10/1714 04/10/1714 Results 24 hrs Laboratory Tests Test 04/09/17 12:54 04/09/17 17:33 04/09/17 20:22 04/10/17 05:14 Bedside Glucose 98 174 118 White Blood Count 7.6 Red Blood Count 3.02 L Hemoglobin 8.3 L Hematocrit 25.7 L Mean Corpuscular Volume 85.1 Mean Corpuscular Hemoglobin 27.5 L Mean Corpuscular Hemoglobin Concent 32.3 Red Cell Distribution Width 15.0 H Platelet Count 211 # Mean Platelet Volume 9.1 Neutrophils % 63.0 Lymphocytes % 28.3 Monocytes % 6.7 Eosinophils % 1.5 Basophils % 0.1 Nucleated Red Blood Cells % 0.0 Neutrophils # 4.8 Lymphocytes # 2.1 Monocytes # 0.5 Eosinophils # 0.1 Basophils # 0.0 Nucleated Red Blood Cells # 0.0 Sodium Level 135 Potassium Level 4.0 Chloride Level 106 Carbon Dioxide Level 19 L Anion Gap 14 Blood Urea Nitrogen 56 H Creatinine 1.81 H Glucose Level 108 Calcium Level 8.6 Phosphorus Level 3.5 Magnesium Level 2.2 Test 04/10/17 08:32 04/10/17 11:56 Bedside Glucose 85 89 Medications Medications Current Medications Ondansetron HCl (Zofran Inj) 4 mg Q6H PRN IV NAUSEA AND/OR VOMITING Last administered on 04/10/17 00:16; Admin Dose 4 MG; Start 03/30/17 at 03:30 Heparin Sodium (Porcine) (Heparin (5000 Units/0.5 ml)) 5,000 unit DAILY SC Last administered on 04/10/17 10:15; Admin Dose 5,000 UNIT; Start 03/30/17 at 09:00 Oxycodone/ Acetaminophen 1 tab 1 tab Q4H PRN PO PAIN; Start 03/30/17 at 06:00 Total Parenteral Nutrition (Tpn) 1,000 ml @ 70 mls/hr [id number] IV Last administered on 04/09/17 16:58; Admin Dose 70 MLS/HR; Start 03/31/17 at 15:00 Insulin Glargine (Lantus) 10 unit HS SC Last administered on 04/09/17 20:42; Admin Dose 10 UNIT; Start 04/01/17 at 21:00 Miscellaneous Information 1 ea NOTE XX ; Start 03/31/17 at 21:00 Glucose (Glutose) 15 gm Q15M PRN PO DECREASED GLUCOSE; Start 03/31/17 at 21:00 Glucose (Glutose) 22.5 gm Q15M PRN PO DECREASED GLUCOSE; Start 03/31/17 at 21: 00 Dextrose (D50w Syringe) 25 ml Q15M PRN IV DECREASED GLUCOSE; Start 03/31/17 at 21:00 Dextrose (D50w Syringe) 50 ml Q15M PRN IV DECREASED GLUCOSE; Start 03/31/17 at 21:00 Glucagon (Glucagen) 1 mg Q15M PRN IM DECREASED GLUCOSE; Start 03/31/17 at 21: 00 Glucose (Glutose) 15 gm Q15M PRN BUCCAL DECREASED GLUCOSE; Start 03/31/17 at 21:00 Diagnostic Test (Pha) (Accu-Chek) 1 ea 02 XX ; Start 04/06/17 at 02:00 Morphine Sulfate 2 mg 2 mg Q3H PRN IV PAIN Last administered on 04/10/17 10:12 ; Admin Dose 2 MG; Start 04/06/17 at 22:30 Sodium Chloride (NS) 1,000 ml @ 60 mls/hr [id number] IV Last administered on 04/10 05:14; Admin Dose 60 MLS/HR; Start 04/09/17 at 12:00; Stop 04/10/17 at 21: 19 MARGOT WOMACK MD Apr 10, 2017 12:29
[2017-04-10] MEDS: TPN 1,000 ML IV SCH ×2 (13:22→21:18)
--- NOTE | 2017-04-10 15:35 | CONS ---
Date/Time of Note Date/Time of Note DATE: 04/10/17 TIME: 15:26 Consultation Date/Type/Reason Admit Date/Time Mar 30, 2017 at 02:24 Initial Consult Date SUBJECTIVE: 66 y/o male being treated for MANA and UTI. Currently finished IV antbx treatment. No events overnight. The patient is alert, denies pain, looks comfortable, no fevers. VS: 136/57 P:73 R:18 T:98.5 So2: 100% LABS: reviewed. WBC=7.6. H&H: 8.3/25.7 BUN-56 Cr-1.81. MICROBIOLOGY: Urine culture grew Escherichia coli extended-spectrum beta- lactamase and Enterococcus species. ANTIMICROBIALS: NONE. PHYSICAL EXAMINATION: GENERAL: This is a cachectic, chronically ill-appearing, elderly man who is in no distress. HEENT: Head atraumatic, normocephalic. Sclerae anicteric. NECK: Supple. CHEST: Rise symmetrical. Breath sounds diminished to bases. HEART: S1, S2. ABDOMEN: Soft, bowel tones present. EXTREMITIES: Without cyanosis. ASSESSMENT: 1. Recurrent urinary tract infection. 2. History of bladder and prostate cancer, status post chemoradiation and cystoprostatectomy with urinary diversion and ileostomy conduit. 3. History of perforated viscus repair and multiple pelvic abscess pseudocyst drainages. 4. Acute kidney failure with a history of obstructive uropathy with bilateral JJ stent placement. 5. Cachexia. On TPN and mech. soft diet. PLAN: The patient remains stable. Follow recommendations of specialists. Type of Consultation: ID Referring Provider: ALLISON HAYWARD Exam/Review of Systems Vital Signs Vitals Vital Signs Date Time Temp Pulse Resp B/P Pulse Ox O2 Delivery O2 Flow Rate FiO2 04/10/17 08:12 98.5 73 18 136/57 100 04/10/17 05:51 Room Air Intake and Output 04/09/17 04/09/17 04/10/17 15:00 23:00 07:00 Intake Total 1910 ml 2390 ml Output Total 3500 ml 2350 ml Balance -1590 ml 40 ml Results Result Diagram: 04/10/17 0514 04/10/17 0514 Results 24 hrs Laboratory Tests Test 04/09/17 17:33 04/09/17 20:22 04/10/17 05:14 04/10/17 08:32 Bedside Glucose 174 118 85 White Blood Count 7.6 Red Blood Count 3.02 L Hemoglobin 8.3 L Hematocrit 25.7 L Mean Corpuscular Volume 85.1 Mean Corpuscular Hemoglobin 27.5 L Mean Corpuscular Hemoglobin Concent 32.3 Red Cell Distribution Width 15.0 H Platelet Count 211 # Mean Platelet Volume 9.1 Neutrophils % 63.0 Lymphocytes % 28.3 Monocytes % 6.7 Eosinophils % 1.5 Basophils % 0.1 Nucleated Red Blood Cells % 0.0 Neutrophils # 4.8 Lymphocytes # 2.1 Monocytes # 0.5 Eosinophils # 0.1 Basophils # 0.0 Nucleated Red Blood Cells # 0.0 Sodium Level 135 Potassium Level 4.0 Chloride Level 106 Carbon Dioxide Level 19 L Anion Gap 14 Blood Urea Nitrogen 56 H Creatinine 1.81 H Glucose Level 108 Calcium Level 8.6 Phosphorus Level 3.5 Magnesium Level 2.2 Test 04/10/17 11:56 Bedside Glucose 89 Medications Medications Current Medications Ondansetron HCl (Zofran Inj) 4 mg Q6H PRN IV NAUSEA AND/OR VOMITING Last administered on 04/10/17 00:16; Admin Dose 4 MG; Start 03/30/17 at 03:30 Heparin Sodium (Porcine) (Heparin (5000 Units/0.5 ml)) 5,000 unit DAILY SC Last administered on 04/10/17 10:15; Admin Dose 5,000 UNIT; Start 03/30/17 at 09:00 Oxycodone/ Acetaminophen 1 tab 1 tab Q4H PRN PO PAIN; Start 03/30/17 at 06:00 Total Parenteral Nutrition (Tpn) 1,000 ml @ 70 mls/hr [id number] IV Last administered on 04/10/17 13:22; Admin Dose 70 MLS/HR; Start 03/31/17 at 15:00 Insulin Glargine (Lantus) 10 unit HS SC Last administered on 04/09/17 20:42; Admin Dose 10 UNIT; Start 04/01/17 at 21:00 Miscellaneous Information 1 ea NOTE XX ; Start 03/31/17 at 21:00 Glucose (Glutose) 15 gm Q15M PRN PO DECREASED GLUCOSE; Start 03/31/17 at 21:00 Glucose (Glutose) 22.5 gm Q15M PRN PO DECREASED GLUCOSE; Start 03/31/17 at 21: 00 Dextrose (D50w Syringe) 25 ml Q15M PRN IV DECREASED GLUCOSE; Start 03/31/17 at 21:00 Dextrose (D50w Syringe) 50 ml Q15M PRN IV DECREASED GLUCOSE; Start 03/31/17 at 21:00 Glucagon (Glucagen) 1 mg Q15M PRN IM DECREASED GLUCOSE; Start 03/31/17 at 21: 00 Glucose (Glutose) 15 gm Q15M PRN BUCCAL DECREASED GLUCOSE; Start 03/31/17 at 21:00 Diagnostic Test (Pha) (Accu-Chek) 02 XX ; Start 04/06/17 at 02:00 Morphine Sulfate 2 mg 2 mg Q3H PRN IV PAIN Last administered on 04/10/17 13:23 ; Admin Dose 2 MG; Start 04/06/17 at 22:30 Sodium Chloride (NS) 1,000 ml @ 60 mls/hr [id number] IV Last administered on 04/10 05:14; Admin Dose 60 MLS/HR; Start 04/09/17 at 12:00; Stop 04/10/17 at 21: 19 CHRISTINA CAMPOVERDE Apr 10, 2017 15:35
--- NOTE | 2017-04-10 18:27 | PN ---
Date/Time of Note Date/Time of Note DATE: 04/10/17 TIME: 18:20 Assessment/Plan Lines/Catheters IV Catheter Type (from Nrs): PICC Line Tomas in Place (from Nrs): No Assessment/Plan Chief Complaint/Hosp Course 1. Multiple ostomies and ileal conduit: all ostomies pink and moist; s/p multiple Perforated viscous w small bowel proximal looped ostomy (minimum 6 month wait prior to considering attempting abdominal re-exploration) -continue ostomy care -continue oral feed and supplements; hopefully can wean off tpn for discharge to snf -continue local abdominal wound care-w vac -oral diet as tolerated with protein shakes and probiotics -oob/ambulate -urology consult 2. UTI (polymicrobial, complicated) -abx/antimicrobials per sensitivity -frequent bladder emptying/cath care -urology 3. Malnutrition: tolerating solid diet; nutrition consult noted -continue tpn -vitamins, probiotics, and nutritional supplements -calorie count; hopefully wean off tpn if able for dc to snf if unable to find snf that accepts tpn 4. MANA: -judicious fluids -limit nephrotoxic meds -per renal 5. Bladder cancer: s/p chemo/radiation, s/p cystoprostatectomy with urinary diversion -per oncology/urology 6. Normocytic hypochromic anemia: no overt bleed noted -monitor -transfuse as needed -further workup per medical team 7. Pelvic pain: was on transdermal analgesics during previous hospitalization -pain management Thank you. Patient seen and examined in collaboration with Dr. Bang Ross Problems: Subjective 24 Hr Interval Summary Pelvic pain persistent. All ostomies pink and draining well. Urostomy output pink. Appetite moderate. No fevers, chills, sob, congested cough, cp, palpitations, craig, dizziness, n/v/d/dysuria. Exam/Review of Systems Vital Signs Vitals Vital Signs Date Time Temp Pulse Resp B/P Pulse Ox O2 Delivery O2 Flow Rate FiO2 04/10/17 08:12 98.5 73 18 136/57 100 04/10/17 05:51 Room Air Intake and Output 04/09/17 04/09/17 04/10/17 15:00 23:00 07:00 Intake Total 1910 ml 2390 ml Output Total 3500 ml 2350 ml Balance -1590 ml 40 ml Exam Free Text/Dictation Constitutional: alert, frail, oriented Psych: nl mood/affect, no complaints Head: atraumatic, normocephalic Eyes: nl lids, nl sclera ENMT: mucosa pink and moist, nl nasal mucosa & septum Neck: non-tender, supple Respiratory: normal air movement Cardiovascular: nl pulses, regular rate and rhythm Gastrointestinal: non-tender, other (ileostomy, colostomy, urostomy- output pink), soft, wound, erythema Genitourinary - Male: nl penis, nl scrotum; ileal conduit with mucous/sediment output Musculoskeletal: nl extremities to inspection, nl gait and stance Extremities: normal pulses, No edema Neurological: nl mental status, nl speech Skin: nl turgor, rash or lesions; wound vac to lower abdomen Results Result Diagram: 04/10/17 0514 04/10/17 0514 IFTIKHAR ROBERTSON NP Apr 10, 2017 18:27
[2017-04-10] MEDS: OXYCODONE/ACETAMINOPHEN (5/325) TAB PO PRN (19:59)
[2017-04-10 20:29] VITALS: BP 94/53; RESP 19
[2017-04-10] MEDS: INSULIN GLARGINE [LANtus] 3 ML PEN SC SCH (20:42)
[2017-04-11] MEDS: morphine 2 MG INJ IV PRN ×4 (01:00→13:23)
[2017-04-11] MEDS: ONDANSETRON 4 MG INJ IV PRN (01:04)
[2017-04-11 01:58] VITALS: BP 94/50; RESP 19
[2017-04-11] MEDS: TPN 1,000 ML IV SCH ×2 (02:34→17:41)
[2017-04-11 05:13] LABS: BASOPHILS % 0.3 % (0.0-2.0); EOSINOPHILS # 0.2 10^3/ul (0.0-0.5); HEMATOCRIT 27.9 % (42.0-52.0); LYMPHOCYTES # 1.8 10^3/ul (0.8-2.9); MEAN CORPUSCULAR HGB CONC 32.3 g/dl (32.0-37.0); MEAN CORPUSCULAR VOLUME 86.9 fl (82.0-101.0); MONOCYTE # 0.5 10^3/ul (0.3-0.9); MONOCYTES % 5.8 % (0.0-11.0); NEUTROPHIL # 5.6 10^3/ul (1.6-7.5); NEUTROPHILS % 69.5 % (39.0-77.0); PLATELET COUNT 207 10^3/UL (140-415); RED BLOOD COUNT 3.21 10^6/ul (4.70-6.10); RED CELL DISTRIBUTION WIDTH 15.2 % (11.5-14.5)
[2017-04-11 05:29] LABS: MAGNESIUM 2.2 mg/dl (1.7-2.5); PHOSPHORUS 3.1 mg/dl (2.5-4.9)
[2017-04-11 05:40] LABS: CALCIUM 8.8 mg/dl (8.4-10.2); CREATININE 1.67 mg/dl (0.61-1.24); POTASSIUM 4.1 mmol/L (3.5-5.1)
[2017-04-11 08:00] VITALS: BP 89/71; RESP 19
--- NOTE | 2017-04-11 08:04 | PN ---
Date/Time of Note Date/Time of Note DATE: 04/11/17 TIME: 08:03 Assessment/Plan VTE Prophylaxis VTE Prophylaxis Intervention: heparin Lines/Catheters IV [facility] Type (from [facility] PICC Line Central line still needed: Yes Urinary Cath still in place: No Assessment/Plan Chief Complaint/Hosp Course 1. Complicated urinary tract infection with polymicrobial's including E. coli ESBL. Status post antimicrobials as per infectious diseases. 2. Acute nonoliguric kidney injury. Etiology unclear. The patient being followed by nephrology. Use nephrotoxic drugs with caution. 3. Bladder cancer. Status post radical cystoprostatectomy and creation of ileal conduit with colonic diversion for fistula formation. 4. Status post perforated viscus repair complicated by intra-abdominal abscess requiring CT-guided drainage on previous admission. The patient has an abdominal wound vac in place. Being followed by surgery. 5. Severe protein calorie malnutrition. Patient on TPN. The patient on a mechanical soft diet. 6. Normocytic anemia. Etiology unclear. Probably anemia of chronic disease. 7. Fluids, electrolytes, and nutrition. TPN. Mechanical soft diet. 8. DVT prophylaxis. Subcutaneous heparin. 9. Plan. Antimicrobials has been discontinued. DC Planning to SNF. Case discussed with Dr. Baez. Problems: Subjective 24 Hr Interval Summary Free Text/Dictation The patient remains afebrile. Exam/Review of Systems Vital Signs Vitals Vital Signs Date Time Temp Pulse Resp B/P Pulse Ox O2 Delivery O2 Flow Rate FiO2 04/11/17 01:58 99.2 75 19 94/50 99 04/10/17 05:51 Room Air Intake and Output 04/10/17 04/10/17 04/11/17 15:00 23:00 07:00 Intake Total 160 ml 1200 ml 1250 ml Output Total 3200 ml 3850 ml Balance 160 ml -2000 ml -2600 ml Exam General:, Thin, frail looking 66 year-old male lying in bed in no apparent distress. HEENT: Normocephalic, atraumatic. Eyes: Anicteric sclerae, conjunctivae clear. ENT: Nasal septum midline, oral mucosa moist. Neck supple, no JVD noticed. Respiratory: Bilaterally diminished breath sounds. No use of accessory muscles of respiration. No adventitious breath sounds. Cardiovascular: S1, S2 heard. No murmurs or gallops. Abdomen: Soft, nontender, and nondistended. Abdominal wall wound Vac. Ileostomy draining light brown liquid output (less amount). Colostomy pink bud moist. Ileal conduit. Genitourinary: Deferred. Extremities: No cyanosis, no clubbing, no edema. Peripheral pulses palpable. Neurologic: Cranial nerves II through XII grossly intact. The patient is awake, alert, and oriented. Skin: Normal skin turgor. No skin rashes. Results Result Diagram: 04/11/17 0435 04/11/17 0435 Results 24 hrs Laboratory Tests Test 04/10/17 08:32 04/10/17 11:56 04/10/17 17:23 04/10/17 20:38 Bedside Glucose 85 89 132 120 Test 04/11/17 04:35 White Blood Count 8.0 Red Blood Count 3.21 L Hemoglobin 9.0 L Hematocrit 27.9 L Mean Corpuscular Volume 86.9 Mean Corpuscular Hemoglobin 28.0 L Mean Corpuscular Hemoglobin Concent 32.3 Red Cell Distribution Width 15.2 H Platelet Count 207 Mean Platelet Volume 9.0 Neutrophils % 69.5 Lymphocytes % 22.0 Monocytes % 5.8 Eosinophils % 2.0 Basophils % 0.3 Nucleated Red Blood Cells % 0.0 Neutrophils # 5.6 Lymphocytes # 1.8 Monocytes # 0.5 Eosinophils # 0.2 Basophils # 0.0 Nucleated Red Blood Cells # 0.0 Sodium Level 139 Potassium Level 4.1 Chloride Level 108 Carbon Dioxide Level 22 Anion Gap 13 Blood Urea Nitrogen 56 H Creatinine 1.67 H Glucose Level 110 Calcium Level 8.8 Phosphorus Level 3.1 Magnesium Level 2.2 Medications Medications Current Medications Ondansetron HCl (Zofran Inj) 4 mg Q6H PRN IV NAUSEA AND/OR VOMITING Last administered on 04/11/17 01:04; Admin Dose 4 MG; Start 03/30/17 at 03:30 Heparin Sodium (Porcine) (Heparin (5000 Units/0.5 ml)) 5,000 unit DAILY SC Last administered on 04/10/17 10:15; Admin Dose 5,000 UNIT; Start 03/30/17 at 09:00 Oxycodone/ Acetaminophen 1 tab 1 tab Q4H PRN PO PAIN Last administered on 19:59; Admin Dose 1 TAB; Start 03/30/17 at 06:00 Total Parenteral Nutrition (Tpn) 1,000 ml @ 70 mls/hr [id number] IV Last administered on 04/11/17 02:34; Admin Dose 70 MLS/HR; Start 03/31/17 at 15:00 Insulin Glargine (Lantus) 10 unit HS SC Last administered on 04/10/17 20:42; Admin Dose 10 UNIT; Start 04/01/17 at 21:00 Miscellaneous Information 1 ea NOTE XX ; Start 03/31/17 at 21:00 Glucose (Glutose) 15 gm Q15M PRN PO DECREASED GLUCOSE; Start 03/31/17 at 21:00 Glucose (Glutose) 22.5 gm Q15M PRN PO DECREASED GLUCOSE; Start 03/31/17 at 21: 00 Dextrose (D50w Syringe) 25 ml Q15M PRN IV DECREASED GLUCOSE; Start 03/31/17 at 21:00 Dextrose (D50w Syringe) 50 ml Q15M PRN IV DECREASED GLUCOSE; Start 03/31/17 at 21:00 Glucagon (Glucagen) 1 mg Q15M PRN IM DECREASED GLUCOSE; Start 03/31/17 at 21: 00 Glucose (Glutose) 15 gm Q15M PRN BUCCAL DECREASED GLUCOSE; Start 03/31/17 at 21:00 Diagnostic Test (Pha) (Accu-Chek) 1 ea 02 XX ; Start 04/06/17 at 02:00 Morphine Sulfate (morphine) 2 mg Q3H PRN IV PAIN Last administered on 05:27; Admin Dose 2 MG; Start 04/06/17 at 22:30 Ascorbic Acid (Vitamin C) 500 mg DAILY PO ; Start 04/11/17 at 09:00 Zinc Sulfate (Zinc Sulfate) 220 mg DAILY PO ; Start 04/11/17 at 09:00 BRENDA PETTIT NP Apr 11, 2017 08:04
[2017-04-11] MEDS: ASCORBIC ACID 500 MG TAB PO SCH (09:40)
[2017-04-11] MEDS: ZINC SULFATE 220 MG CAP PO SCH (09:40)
[2017-04-11] MEDS: Insulin NOVOLOG SS MODERATE Algorithm (SS with meals and bedtime) SC SCH ×4 (09:44→21:00)
[2017-04-11] MEDS: HEPARIN 5,000 UNIT/0.5 ML VIAL SC SCH (09:44)
--- NOTE | 2017-04-11 13:24 | PN ---
Date/Time of Note Date/Time of Note DATE: 04/11/17 TIME: 13:21 Assessment/Plan Lines/Catheters IV Catheter Type (from Nrs): PICC Line Tomas in Place (from Nrs): No Assessment/Plan Chief Complaint/Hosp Course 1. Multiple ostomies and ileal conduit: all ostomies pink and moist; s/p multiple Perforated viscous w small bowel proximal looped ostomy (minimum 6 month wait prior to considering attempting abdominal re-exploration) -continue ostomy care -continue oral feed and supplements; hopefully can wean off tpn for discharge to snf -continue local abdominal wound care-w vac -oral diet as tolerated with protein shakes and probiotics -oob/ambulate -urology consult-urine pink w mucous 2. UTI (polymicrobial, complicated)pink with mucous urine -abx/antimicrobials per sensitivity -frequent bladder emptying/cath care -urology 3. Malnutrition: tolerating solid diet; nutrition consult noted -continue tpn -vitamins, probiotics, and nutritional supplements -calorie count; hopefully wean off tpn if able for dc to snf if unable to find snf that accepts tpn 4. MANA: -judicious fluids -limit nephrotoxic meds -per renal 5. Bladder cancer: s/p chemo/radiation, s/p cystoprostatectomy with urinary diversion -per oncology/urology 6. Normocytic hypochromic anemia: no overt bleed noted -monitor -transfuse as needed -further workup per medical team 7. Pelvic pain: was on transdermal analgesics during previous hospitalization -pain management Thank you. Patient seen and examined in collaboration with Dr. Bang Ross Problems: Subjective 24 Hr Interval Summary C/o pelvic pain. Min nausea. No fevers, chills, sob, congested cough, cp, palpitations, craig, dizziness, n/v/d/dysuria. Ostomies draining well. Ileal conduit with pink sediment urine. Exam/Review of Systems Vital Signs Vitals Vital Signs Date Time Temp Pulse Resp B/P Pulse Ox O2 Delivery O2 Flow Rate FiO2 04/11/17 01:58 99.2 75 19 94/50 99 04/10/17 05:51 Room Air Intake and Output 04/10/17 04/10/17 04/11/17 15:00 23:00 07:00 Intake Total 160 ml 1200 ml 1250 ml Output Total 3200 ml 3850 ml Balance 160 ml -2000 ml -2600 ml Exam Free Text/Dictation Constitutional: alert, frail, oriented Psych: nl mood/affect, no complaints Head: atraumatic, normocephalic Eyes: nl lids, nl sclera ENMT: mucosa pink and moist, nl nasal mucosa & septum Neck: non-tender, supple Respiratory: normal air movement Cardiovascular: nl pulses, regular rate and rhythm Gastrointestinal: non-tender, other (ileostomy, colostomy, urostomy- output pink with sediment), soft, wound, erythema Genitourinary - Male: nl penis, nl scrotum; ileal conduit with mucous/sediment output Musculoskeletal: nl extremities to inspection, nl gait and stance Extremities: normal pulses, No edema Neurological: nl mental status, nl speech Skin: nl turgor, rash or lesions; wound vac to lower abdomen Results Result Diagram: 04/11/17 0435 04/11/17 0435 IFTIKHAR ROBERTSON NP Apr 11, 2017 13:24
[2017-04-11 14:00] VITALS: BP 100/51; RESP 19
--- NOTE | 2017-04-11 17:01 | CONS ---
Date/Time of Note Date/Time of Note DATE: 04/11/17 TIME: 16:58 Assessment/Plan Assessment/Plan Chief Complaint/Hosp Course ID PROGRESS NOTE CURRENT ABX: => OFF ABX DAY #2 S/P DAY # 11 => Zyvox + Merrem -> DC' 04/09/17 pm 24H INTERVAL SUMMARY * Calm, resting comfortably in bed, no fevers, VSS, no complaints * PHYSICAL EXAMINATION: GENERAL: Frail, cachectic M, lethargic, awakens, A/A/O -> VSS, no fevers, NAD HEENT: Bilateral temporal wasting NECK: Supple, full ROM CHEST: Equal chest rise bilaterally, without dyspnea on room air CV: Radial pulse RRR ABD: Soft, colostomy, ileostomy conduit : Deferred, no FC EXT: Warm, no C/C/E, ambulatory moves all extremities SKIN: No rash, no diaphoresis ID ASSESSMENT 66 yo M w/ PMHx bladder cancer re-admitted with: 1. SIS w/ low grade temps 99.0+ range + Leukocytosis 2/2 Recurrent complicated urinary tract infection. * 03/30/17 BCx (-) * 03/30/17 URINE CULTURE Final * Organism 1 ESCHERICHIA COLI (ESBL) 10,000 - 20,000 CFU/ml * Organism 2 ENTEROCOCCUS SPECIES >100,000 CFU/ml 2. History of perforated viscus repair with multiple pelvic abscess drainage * s/p 01/05/18 Perforated viscous with leak s/p ex lap, extensive lysis adhesions , small bowel proximal looped ostomy 01/05/17 * Colostomy state=> Stable * Open ABD wound => local wound care treatment 3. Bladder/Prostate Cancer * s/p chemotherapy/radiation where he sustained urethral damage as well as fecal and urinary incontinence as a result of chemo/radiation treatment. * s/p cystoprostatectomy with urinary diversion prior admission * Ileostomy conduit w/pink stoma 4. Acute renal failure=> Hx of obstructive uropathy w/bilateral JJ stents prior admission * CT of the abdomen and pelvis revealed mild bilateral hydronephrosis and bilateral ureteral stents. 5. Generalized weakness w/debility + cachexia w/ hypoalbuminemia: malnutrition + failure to thrive * TPN dependent 6. Microcytic anemia: 2/2 chronic disease + chemo/radiation +/- post-surgical; h/h stable 7. Transaminitis 8. Osteoarthritis: DJD spine (-)MRSA Nares Screen CURRENT ABX: OFF ABX DAY #2 S/P DAY # 11 => Zyvox + Merrem -> DC' 04/09/17 pm ID RECOMMENDATIONS 1. Monitor off ABX, may DC off ABX when cleared by primary 2. Per surgery notes prior admission, the plan was to anticipate TPN 6 mos ? Possible repeat exploration future? 3. Continue local ABD wound care -> wound care consult, ostomy sites leaking w/ local skin irritation . . Problems: Consultation Date/Type/Reason Admit Date/Time Mar 30, 2017 at 02:24 Initial Consult Date 04/01/17 Type of Consultation: ID Referring Provider: ALLISON HAYWARD Exam/Review of Systems Vital Signs Vitals Vital Signs Date Time Temp Pulse Resp B/P Pulse Ox O2 Delivery O2 Flow Rate FiO2 04/11/17 14:00 98.2 70 19 100/51 98 04/10/17 05:51 Room Air Intake and Output 04/10/17 04/10/17 04/11/17 15:00 23:00 07:00 Intake Total 160 ml 1200 ml 1250 ml Output Total 3200 ml 3850 ml Balance 160 ml -2000 ml -2600 ml Results Result Diagram: 04/11/17 0435 04/11/17 0435 Results 24 hrs Laboratory Tests Test 04/10/17 17:23 04/10/17 20:38 04/11/17 04:35 04/11/17 08:44 Bedside Glucose 132 120 160 White Blood Count 8.0 Red Blood Count 3.21 L Hemoglobin 9.0 L Hematocrit 27.9 L Mean Corpuscular Volume 86.9 Mean Corpuscular Hemoglobin 28.0 L Mean Corpuscular Hemoglobin Concent 32.3 Red Cell Distribution Width 15.2 H Platelet Count 207 Mean Platelet Volume 9.0 Neutrophils % 69.5 Lymphocytes % 22.0 Monocytes % 5.8 Eosinophils % 2.0 Basophils % 0.3 Nucleated Red Blood Cells % 0.0 Neutrophils # 5.6 Lymphocytes # 1.8 Monocytes # 0.5 Eosinophils # 0.2 Basophils # 0.0 Nucleated Red Blood Cells # 0.0 Sodium Level 139 Potassium Level 4.1 Chloride Level 108 Carbon Dioxide Level 22 Anion Gap 13 Blood Urea Nitrogen 56 H Creatinine 1.67 H Glucose Level 110 Calcium Level 8.8 Phosphorus Level 3.1 Magnesium Level 2.2 Test 04/11/17 12:59 Bedside Glucose 117 Medications Medications Current Medications Ondansetron HCl (Zofran Inj) 4 mg Q6H PRN IV NAUSEA AND/OR VOMITING Last administered on 04/11/17 01:04; Admin Dose 4 MG; Start 03/30/17 at 03:30 Heparin Sodium (Porcine) (Heparin (5000 Units/0.5 ml)) 5,000 unit DAILY SC Last administered on 04/11/17 09:44; Admin Dose 5,000 UNIT; Start 03/30/17 at 09:00 Oxycodone/ Acetaminophen 1 tab 1 tab Q4H PRN PO PAIN Last administered on 19:59; Admin Dose 1 TAB; Start 03/30/17 at 06:00 Total Parenteral Nutrition (Tpn) 1,000 ml @ 70 mls/hr [id number] IV Last administered on 04/11/17 02:34; Admin Dose 70 MLS/HR; Start 03/31/17 at 15:00 Insulin Glargine (Lantus) 10 unit HS SC Last administered on 04/10/17 20:42; Admin Dose 10 UNIT; Start 04/01/17 at 21:00 Miscellaneous Information 1 ea NOTE XX ; Start 03/31/17 at 21:00 Glucose (Glutose) 15 gm Q15M PRN PO DECREASED GLUCOSE; Start 03/31/17 at 21:00 Glucose (Glutose) 22.5 gm Q15M PRN PO DECREASED GLUCOSE; Start 03/31/17 at 21: 00 Dextrose (D50w Syringe) 25 ml Q15M PRN IV DECREASED GLUCOSE; Start 03/31/17 at 21:00 Dextrose (D50w Syringe) 50 ml Q15M PRN IV DECREASED GLUCOSE; Start 03/31/17 at 21:00 Glucagon (Glucagen) 1 mg Q15M PRN IM DECREASED GLUCOSE; Start 03/31/17 at 21: 00 Glucose (Glutose) 15 gm Q15M PRN BUCCAL DECREASED GLUCOSE; Start 03/31/17 at 21:00 Diagnostic Test (Pha) (Accu-Chek) 1 ea 02 XX ; Start 04/06/17 at 02:00 Ascorbic Acid (Vitamin C) 500 mg DAILY PO Last administered on 04/11/17 09:40 ; Admin Dose 500 MG; Start 04/11/17 at 09:00 Zinc Sulfate (Zinc Sulfate) 220 mg DAILY PO Last administered on 04/11/17 09: 40; Admin Dose 220 MG; Start 04/11/17 at 09:00 Fentanyl (Duragesic 25 Mcg/Hr Patch) 1 patch Q3D TRANSDERM Last administered on 04/11/17 16:43; Admin Dose 1 PATCH; Start 04/11/17 at 17:00 MELO KANG NP Apr 11, 2017 17:01
[2017-04-11 19:27] VITALS: BP 100/56; RESP 18
[2017-04-11] MEDS: OXYCODONE/ACETAMINOPHEN (5/325) TAB PO PRN (20:13)
--- NOTE | 2017-04-11 21:00 | CONS ---
Date/Time of Note Date/Time of Note DATE: 04/11/17 TIME: 20:59 Assessment/Plan Assessment/Plan Additional Assessment/Plan 1. acute kidney injury Non oliguric 2. H/o ESBL UTI 3.history of bladder cancer s/p TURBT, chemotherapy/radiation, urethral damage, chemo/radiation induced urinary and fecal incontinence. He underwent cystoprostatectomy with urinary diversion, ileal conduit, colonic diversion for fistula on last admission Plan: pt had a full CKD work up done on last admission, no need to repeat it Continue IV Abx meropenem, zyvox , renally dosed on TPN at 70 cc/hr - s/p 2 L IVF< cr improved to 1.67- monitor Cr will continue to follow up Consultation Date/Type/Reason Admit Date/Time Mar 30, 2017 at 02:24 Initial Consult Date 03/30/17 Type of Consultation: NEPHROLOGY Referring Provider: ALLISON HAYWARD 24 HR Interval Summary Free Text/Dictation Cr improved to 1.67, Bp stable s/p IVF Exam/Review of Systems Vital Signs Vitals Vital Signs Date Time Temp Pulse Resp B/P Pulse Ox O2 Delivery O2 Flow Rate FiO2 04/11/17 19:27 98.7 75 18 100/56 100 04/10/17 05:51 Room Air Intake and Output 04/10/17 04/10/17 04/11/17 15:00 23:00 07:00 Intake Total 160 ml 1200 ml 1250 ml Output Total 3200 ml 3850 ml Balance 160 ml -2000 ml -2600 ml Exam Constitutional: other (Patient appears weak. No acute distress. He is cachectic) Head: atraumatic, normocephalic Eyes: EOMI, PERRL Respiratory: clear to auscultation, normal air movement Cardiovascular: nl pulses, regular rate and rhythm Gastrointestinal: other (Scaphoid abdomen. Urostomy, colostomy and ileal conduit) Extremities: normal pulses Results Result Diagram: 04/11/17 0435 04/11/17 0435 Results 24 hrs Laboratory Tests Test 04/11/17 04:35 04/11/17 08:44 04/11/17 12:59 04/11/17 17:36 White Blood Count 8.0 Red Blood Count 3.21 L Hemoglobin 9.0 L Hematocrit 27.9 L Mean Corpuscular Volume 86.9 Mean Corpuscular Hemoglobin 28.0 L Mean Corpuscular Hemoglobin Concent 32.3 Red Cell Distribution Width 15.2 H Platelet Count 207 Mean Platelet Volume 9.0 Neutrophils % 69.5 Lymphocytes % 22.0 Monocytes % 5.8 Eosinophils % 2.0 Basophils % 0.3 Nucleated Red Blood Cells % 0.0 Neutrophils # 5.6 Lymphocytes # 1.8 Monocytes # 0.5 Eosinophils # 0.2 Basophils # 0.0 Nucleated Red Blood Cells # 0.0 Sodium Level 139 Potassium Level 4.1 Chloride Level 108 Carbon Dioxide Level 22 Anion Gap 13 Blood Urea Nitrogen 56 H Creatinine 1.67 H Glucose Level 110 Calcium Level 8.8 Phosphorus Level 3.1 Magnesium Level 2.2 Bedside Glucose 160 117 156 Medications Medications Current Medications Ondansetron HCl (Zofran Inj) 4 mg Q6H PRN IV NAUSEA AND/OR VOMITING Last administered on 04/11/17 01:04; Admin Dose 4 MG; Start 03/30/17 at 03:30 Heparin Sodium (Porcine) (Heparin (5000 Units/0.5 ml)) 5,000 unit DAILY SC Last administered on 04/11/17 09:44; Admin Dose 5,000 UNIT; Start 03/30/17 at 09:00 Oxycodone/ Acetaminophen 1 tab 1 tab Q4H PRN PO PAIN Last administered on 20:13; Admin Dose 1 TAB; Start 03/30/17 at 06:00 Total Parenteral Nutrition (Tpn) 1,000 ml @ 70 mls/hr [id number] IV Last administered on 04/11/17 17:41; Admin Dose 70 MLS/HR; Start 03/31/17 at 15:00 Insulin Glargine (Lantus) 10 unit HS SC Last administered on 04/10/17 20:42; Admin Dose 10 UNIT; Start 04/01/17 at 21:00 Miscellaneous Information 1 ea NOTE XX ; Start 03/31/17 at 21:00 Glucose (Glutose) 15 gm Q15M PRN PO DECREASED GLUCOSE; Start 03/31/17 at 21:00 Glucose (Glutose) 22.5 gm Q15M PRN PO DECREASED GLUCOSE; Start 03/31/17 at 21: 00 Dextrose (D50w Syringe) 25 ml Q15M PRN IV DECREASED GLUCOSE; Start 03/31/17 at 21:00 Dextrose (D50w Syringe) 50 ml Q15M PRN IV DECREASED GLUCOSE; Start 03/31/17 at 21:00 Glucagon (Glucagen) 1 mg Q15M PRN IM DECREASED GLUCOSE; Start 03/31/17 at 21: 00 Glucose (Glutose) 15 gm Q15M PRN BUCCAL DECREASED GLUCOSE; Start 03/31/17 at 21:00 Diagnostic Test (Pha) (Accu-Chek) 1 ea 02 XX ; Start 04/06/17 at 02:00 Ascorbic Acid (Vitamin C) 500 mg DAILY PO Last administered on 04/11/17 09:40 ; Admin Dose 500 MG; Start 04/11/17 at 09:00 Zinc Sulfate (Zinc Sulfate) 220 mg DAILY PO Last administered on 04/11/17 09: 40; Admin Dose 220 MG; Start 04/11/17 at 09:00 Fentanyl (Duragesic 25 Mcg/Hr Patch) 1 patch Q3D TRANSDERM Last administered on 04/11/17 16:43; Admin Dose 1 PATCH; Start 04/11/17 at 17:00 MARGOT WOMACK MD Apr 11, 2017 21:00
[2017-04-11] MEDS: INSULIN GLARGINE [LANtus] 3 ML PEN SC SCH (21:06)
[2017-04-12] MEDS: TPN 1,000 ML IV SCH ×3 (01:54→23:12)
[2017-04-12 01:58] VITALS: BP 98/57; RESP 18
[2017-04-12] MEDS: ACCUCHECK AT 2AM (Patients on SS coverage) XX SCH (02:00)
[2017-04-12] MEDS: OXYCODONE/ACETAMINOPHEN (5/325) TAB PO PRN ×2 (04:52→10:09)
[2017-04-12 05:14] LABS: BASOPHILS % 0.3 % (0.0-2.0); EOSINOPHILS # 0.2 10^3/ul (0.0-0.5); HEMATOCRIT 26.7 % (42.0-52.0); HEMOGLOBIN 8.8 g/dl (14.0-18.0); LYMPHOCYTES # 2.1 10^3/ul (0.8-2.9); LYMPHOCYTES % 27.5 % (15.0-51.0); MEAN CORPUSCULAR HEMOGLOBIN 28.6 pg (29.0-33.0); MEAN CORPUSCULAR VOLUME 86.7 fl (82.0-101.0); MEAN PLATELET VOLUME 8.7 fl (7.4-10.4); MONOCYTE # 0.5 10^3/ul (0.3-0.9); MONOCYTES % 6.9 % (0.0-11.0); NEUTROPHIL # 4.8 10^3/ul (1.6-7.5); PLATELET COUNT 217 10^3/UL (140-415); RED BLOOD COUNT 3.08 10^6/ul (4.70-6.10); RED CELL DISTRIBUTION WIDTH 15.1 % (11.5-14.5); WHITE BLOOD COUNT 7.5 10^3/ul (4.8-10.8)
[2017-04-12 05:36] LABS: CALCIUM 8.9 mg/dl (8.4-10.2); CREATININE 1.58 mg/dl (0.61-1.24); POTASSIUM 3.8 mmol/L (3.5-5.1)
[2017-04-12 05:42] LABS: MAGNESIUM 2.1 mg/dl (1.7-2.5); PHOSPHORUS 2.8 mg/dl (2.5-4.9)
[2017-04-12] MEDS: Insulin NOVOLOG SS MODERATE Algorithm (SS with meals and bedtime) SC SCH ×4 (07:50→21:00)
[2017-04-12 08:00] VITALS: BP 95/55; RESP 18
[2017-04-12] MEDS: ASCORBIC ACID 500 MG TAB PO SCH (09:26)
[2017-04-12] MEDS: ZINC SULFATE 220 MG CAP PO SCH (09:26)
[2017-04-12] MEDS: HEPARIN 5,000 UNIT/0.5 ML VIAL SC SCH (09:27)
[2017-04-12] MEDS: ONDANSETRON 4 MG INJ IV PRN (10:11)
--- NOTE | 2017-04-12 11:44 | PN ---
Date/Time of Note Date/Time of Note DATE: 04/12/17 TIME: 11:41 Assessment/Plan Lines/Catheters IV Catheter Type (from Nrs): PICC Line Tomas in Place (from Nrs): No Assessment/Plan Chief Complaint/Hosp Course 1. Multiple ostomies and ileal conduit: all ostomies pink and moist; s/p multiple Perforated viscous w small bowel proximal looped ostomy (minimum 6 month wait prior to considering attempting abdominal re-exploration) -continue ostomy care -continue oral feed and supplements; hopefully can wean off tpn for discharge to snf -continue local abdominal wound care-w vac -oral diet as tolerated with protein shakes and probiotics -oob/ambulate -urology consult-urine pink w mucous 2. UTI (polymicrobial, complicated)pink with mucous urine -abx/antimicrobials per sensitivity -frequent bladder emptying/cath care -urology 3. Malnutrition: tolerating solid diet; nutrition consult noted -continue tpn -vitamins, probiotics, and nutritional supplements -encourage supplements -calorie count; hopefully wean off tpn if able for dc to snf if unable to find snf that accepts tpn 4. MANA: improving -judicious fluids -limit nephrotoxic meds -per renal 5. Bladder cancer: s/p chemo/radiation, s/p cystoprostatectomy with urinary diversion -per oncology/urology 6. Normocytic hypochromic anemia: no overt bleed noted -monitor -transfuse as needed -further workup per medical team 7. Pelvic pain:on fentanyl patch improved -pain management Thank you. Patient seen and examined in collaboration with Dr. Bang Ross Problems: Subjective 24 Hr Interval Summary Feels ok. Min nausea. Calorie count ongoing. No fevers, chills, sob, congested cough, cp, palpitations, craig, dizziness, n/v/d/dysuria. Ostomies pink and moist. Pain improved-started on fentanyl patch. Exam/Review of Systems Vital Signs Vitals Vital Signs Date Time Temp Pulse Resp B/P Pulse Ox O2 Delivery O2 Flow Rate FiO2 04/12/17 08:00 97.8 71 18 95/55 99 04/10/17 05:51 Room Air Intake and Output 04/11/17 04/11/17 04/12/17 15:00 23:00 07:00 Intake Total 1060 ml 1140 ml Output Total 5400 ml 1800 ml Balance -4340 ml -660 ml Exam Free Text/Dictation Constitutional: alert, frail, oriented Psych: nl mood/affect, no complaints Head: atraumatic, normocephalic Eyes: nl lids, nl sclera ENMT: mucosa pink and moist, nl nasal mucosa & septum Neck: non-tender, supple Respiratory: normal air movement Cardiovascular: nl pulses, regular rate and rhythm Gastrointestinal: non-tender, other (ileostomy, colostomy, urostomy- output pink with sediment), soft, wound, erythema Genitourinary - Male: nl penis, nl scrotum; ileal conduit with mucous/sediment output Musculoskeletal: nl extremities to inspection, nl gait and stance Extremities: normal pulses, No edema Neurological: nl mental status, nl speech Skin: nl turgor, rash or lesions; wound vac to lower abdomen Results Result Diagram: 04/12/17 0435 04/12/17 0434 IFTIKHAR ROBERTSON NP Apr 12, 2017 11:44
--- NOTE | 2017-04-12 12:07 | CONS ---
Date/Time of Note Date/Time of Note DATE: 04/12/17 TIME: 12:06 Consult Date/Type/Reason Admit Date/Time Mar 30, 2017 at 02:24 Initial Consult Date 04/01/17 Type of Consultation: ID Ordering Provider: ALLISON HAYWARD Objective Vital Signs Date Time Temp Pulse Resp B/P Pulse Ox O2 Delivery O2 Flow Rate FiO2 04/12/17 08:00 97.8 71 18 95/55 99 04/10/17 05:51 Room Air Intake and Output 04/11/17 04/11/17 04/12/17 15:00 23:00 07:00 Intake Total 1060 ml 1140 ml Output Total 5400 ml 1800 ml Balance -4340 ml -660 ml Results/Medications Result Diagram: 04/12/17 0435 04/12/17 0434 Results 24 hrs Laboratory Tests Test 04/11/17 12:59 04/11/17 17:36 04/11/17 21:01 04/12/17 04:34 Bedside Glucose 117 156 125 Sodium Level 140 Potassium Level 3.8 Chloride Level 105 Carbon Dioxide Level 27 Anion Gap 12 Blood Urea Nitrogen 56 H Creatinine 1.58 H Glucose Level 119 Calcium Level 8.9 Phosphorus Level 2.8 Magnesium Level 2.1 Test 04/12/17 04:35 04/12/17 08:34 White Blood Count 7.5 Red Blood Count 3.08 L Hemoglobin 8.8 L Hematocrit 26.7 L Mean Corpuscular Volume 86.7 Mean Corpuscular Hemoglobin 28.6 L Mean Corpuscular Hemoglobin Concent 33.0 Red Cell Distribution Width 15.1 H Platelet Count 217 Mean Platelet Volume 8.7 Neutrophils % 63.0 Lymphocytes % 27.5 Monocytes % 6.9 Eosinophils % 2.0 Basophils % 0.3 Nucleated Red Blood Cells % 0.0 Neutrophils # 4.8 Lymphocytes # 2.1 Monocytes # 0.5 Eosinophils # 0.2 Basophils # 0.0 Nucleated Red Blood Cells # 0.0 Bedside Glucose 101 Medications Current Medications Ondansetron HCl (Zofran Inj) 4 mg Q6H PRN IV NAUSEA AND/OR VOMITING Last administered on 04/12/17t 10:11; Admin Dose 4 MG; Start 03/30/17 at 03:30 Heparin Sodium (Porcine) (Heparin (5000 Units/0.5 ml)) 5,000 unit DAILY SC Last administered on 04/12/17 09:27; Admin Dose 5,000 UNIT; Start 03/30/17 at 09:00 Oxycodone/ Acetaminophen 1 tab 1 tab Q4H PRN PO PAIN Last administered on 10:09; Admin Dose 1 TAB; Start 03/30/17 at 06:00 Total Parenteral Nutrition (Tpn) 1,000 ml @ 70 mls/hr [id number] IV Last administered on 04/12/17 07:47; Admin Dose 70 MLS/HR; Start 03/31/17 at 15:00 Insulin Glargine (Lantus) 10 unit HS SC Last administered on 04/11/17 21:06; Admin Dose 10 UNIT; Start 04/01/17 at 21:00 Miscellaneous Information 1 ea NOTE XX ; Start 03/31/17 at 21:00 Glucose (Glutose) 15 gm Q15M PRN PO DECREASED GLUCOSE; Start 03/31/17 at 21:00 Glucose (Glutose) 22.5 gm Q15M PRN PO DECREASED GLUCOSE; Start 03/31/17 at 21: 00 Dextrose (D50w Syringe) 25 ml Q15M PRN IV DECREASED GLUCOSE; Start 03/31/17 at 21:00 Dextrose (D50w Syringe) 50 ml Q15M PRN IV DECREASED GLUCOSE; Start 03/31/17 at 21:00 Glucagon (Glucagen) 1 mg Q15M PRN IM DECREASED GLUCOSE; Start 03/31/17 at 21: 00 Glucose (Glutose) 15 gm Q15M PRN BUCCAL DECREASED GLUCOSE; Start 03/31/17 at 21:00 Diagnostic Test (Pha) (Accu-Chek) 1 ea 02 XX ; Start 04/06/17 at 02:00 Ascorbic Acid (Vitamin C) 500 mg DAILY PO Last administered on 04/12/17 09:26 ; Admin Dose 500 MG; Start 04/11/17 at 09:00 Zinc Sulfate (Zinc Sulfate) 220 mg DAILY PO Last administered on 04/12/17 09: 26; Admin Dose 220 MG; Start 04/11/17 at 09:00 Fentanyl (Duragesic 25 Mcg/Hr Patch) 1 patch Q3D TRANSDERM Last administered on 04/11/17 16:43; Admin Dose 1 PATCH; Start 04/11/17 at 17:00 Assessment/Plan Chief Complaint/Hosp Course SUBJECTIVE: No events overnight. The patient is alert, eating breakfast, denies pain, looks comfortable, no fevers. MICROBIOLOGY: Urine culture grew Escherichia coli extended-spectrum beta- lactamase and Enterococcus species===> s/p Merrem and Zyvox. PHYSICAL EXAMINATION: GENERAL: This is a cachectic, chronically ill-appearing, elderly man who is in no distress. HEENT: Head atraumatic, normocephalic. Sclerae anicteric. NECK: Supple. CHEST: Rise symmetrical. Breath sounds diminished to bases. HEART: S1, S2. ABDOMEN: Soft, bowel tones present. EXTREMITIES: Without cyanosis. ASSESSMENT: 1. S/p recurrent urinary tract infection. 2. History of bladder and prostate cancer, status post chemoradiation and cystoprostatectomy with urinary diversion and ileostomy conduit. 3. History of perforated viscus repair and multiple pelvic abscess pseudocyst drainages. 4. Acute kidney failure with a history of obstructive uropathy with bilateral JJ stent placement. 5. Cachexia. PLAN: The patient remains stable. Off abx. Continue present care, repeat cx prn. Follow recommendations of specialists. ROBIN pt Problems: KING MARQUES NP Apr 12, 2017 12:07
[2017-04-12 14:44] VITALS: BP 97/55; RESP 18
--- NOTE | 2017-04-12 15:57 | PN ---
Date/Time of Note Date/Time of Note DATE: 04/12/17 TIME: 15:48 Assessment/Plan VTE Prophylaxis VTE Prophylaxis Intervention: SCD's Lines/Catheters IV [facility] Type (from [facility]): PICC Line Central line still needed: Yes Urinary Cath still in place: No Assessment/Plan Chief Complaint/Hosp Course Assessment and plan 1.urinary tract infection with polymicrobial including ESBL. ID consult is following. Status post antibiotics. Will follow. 2. Acute kidney injury. Nephrology following. Avoid nephrotoxic medications. Monitor renal panel. 3. History of bladder cancer. Patient is status post radical cystoprostatectomy and creation of ileal conduit with a colonic diversion for fistula formation. Monitor for now. Surgeon following. 4. Status post perforated viscus repair complicated by intra-abdominal abscess requiring CT-guided drainage on previous admission. Wound VAC removed. Continue with surgeon recommendations. 5. Severe protein calorie malnutrition. Continue TPN and soft diet. 6. anemia. Likely of chronic disease. Monitor H&H and transfuse blood products as needed. Disposition plan: Awaiting for fdc facility placement. Will follow up. Discussed plan of care with Dr. Tate Problems: Subjective 24 Hr Interval Summary Free Text/Dictation Currently comfortable at present. Denies any pain at this time. Exam/Review of Systems Vital Signs Vitals Vital Signs Date Time Temp Pulse Resp B/P Pulse Ox O2 Delivery O2 Flow Rate FiO2 04/12/17 14:44 98.7 81 18 97/55 90 04/10/17 05:51 Room Air Intake and Output 04/11/17 04/11/17 04/12/17 15:00 23:00 07:00 Intake Total 1060 ml 1140 ml Output Total 5400 ml 1800 ml Balance -4340 ml -660 ml Exam Constitutional: alert, oriented Psych: nl mood/affect Head: normocephalic Eyes: nl conjunctiva Respiratory: clear to auscultation, normal air movement Cardiovascular: regular rate and rhythm Gastrointestinal: other (Wound VAC removed. Ileostomy bag in place), soft Musculoskeletal: nl extremities to inspection Neurological: [employer] II-XII intact, nl mental status, nl speech Skin: other (Wound VAC removed. Wound appears clean at present.) Results Result Diagram: 04/12/17 0435 04/12/17 0434 Results 24 hrs Laboratory Tests Test 04/11/17 17:36 04/11/17 21:01 04/12/17 04:34 04/12/17 04:35 Bedside Glucose 156 125 Sodium Level 140 Potassium Level 3.8 Chloride Level 105 Carbon Dioxide Level 27 Anion Gap 12 Blood Urea Nitrogen 56 H Creatinine 1.58 H Glucose Level 119 Calcium Level 8.9 Phosphorus Level 2.8 Magnesium Level 2.1 White Blood Count 7.5 Red Blood Count 3.08 L Hemoglobin 8.8 L Hematocrit 26.7 L Mean Corpuscular Volume 86.7 Mean Corpuscular Hemoglobin 28.6 L Mean Corpuscular Hemoglobin Concent 33.0 Red Cell Distribution Width 15.1 H Platelet Count 217 Mean Platelet Volume 8.7 Neutrophils % 63.0 Lymphocytes % 27.5 Monocytes % 6.9 Eosinophils % 2.0 Basophils % 0.3 Nucleated Red Blood Cells % 0.0 Neutrophils # 4.8 Lymphocytes # 2.1 Monocytes # 0.5 Eosinophils # 0.2 Basophils # 0.0 Nucleated Red Blood Cells # 0.0 Test 04/12/17 08:34 04/12/17 12:38 Bedside Glucose 101 134 Medications Medications Current Medications Ondansetron HCl (Zofran Inj) 4 mg Q6H PRN IV NAUSEA AND/OR VOMITING Last administered on 04/12/17 10:11; Admin Dose 4 MG; Start 03/30/17 at 03:30 Heparin Sodium (Porcine) (Heparin (5000 Units/0.5 ml)) 5,000 unit DAILY SC Last administered on 04/12/17 09:27; Admin Dose 5,000 UNIT; Start 03/30/17 at 09:00 Oxycodone/ Acetaminophen 1 tab 1 tab Q4H PRN PO PAIN Last administered on 10:09; Admin Dose 1 TAB; Start 03/30/17 at 06:00 Total Parenteral Nutrition (Tpn) 1,000 ml @ 70 mls/hr [id number] IV Last administered on 04/12/17 07:47; Admin Dose 70 MLS/HR; Start 03/31/17 at 15:00 Insulin Glargine (Lantus) 10 unit HS SC Last administered on 04/11/17 21:06; Admin Dose 10 UNIT; Start 04/01/17 at 21:00 Miscellaneous Information 1 ea NOTE XX ; Start 03/31/17 at 21:00 Glucose (Glutose) 15 gm Q15M PRN PO DECREASED GLUCOSE; Start 03/31/17 at 21:00 Glucose (Glutose) 22.5 gm Q15M PRN PO DECREASED GLUCOSE; Start 03/31/17 at 21: 00 Dextrose (D50w Syringe) 25 ml Q15M PRN IV DECREASED GLUCOSE; Start 03/31/17 at 21:00 Dextrose (D50w Syringe) 50 ml Q15M PRN IV DECREASED GLUCOSE; Start 03/31/17 at 21:00 Glucagon (Glucagen) 1 mg Q15M PRN IM DECREASED GLUCOSE; Start 03/31/17 at 21: 00 Glucose (Glutose) 15 gm Q15M PRN BUCCAL DECREASED GLUCOSE; Start 03/31/17 at 21:00 Diagnostic Test (Pha) (Accu-Chek) 1 ea 02 XX ; Start 04/06/17 at 02:00 Ascorbic Acid (Vitamin C) 500 mg DAILY PO Last administered on 04/12/17 09:26 ; Admin Dose 500 MG; Start 04/11/17 at 09:00 Zinc Sulfate (Zinc Sulfate) 220 mg DAILY PO Last administered on 04/12/17 09: 26; Admin Dose 220 MG; Start 04/11/17 at 09:00 Fentanyl (Duragesic 25 Mcg/Hr Patch) 1 patch Q3D TRANSDERM Last administered on 04/11/17 16:43; Admin Dose 1 PATCH; Start 04/11/17 at 17:00 ALLISON HAYWARD Apr 12, 2017 15:57
[2017-04-12 20:00] VITALS: BP 101/59; RESP 18
[2017-04-12] MEDS: INSULIN GLARGINE [LANtus] 3 ML PEN SC SCH (21:00)
--- NOTE | 2017-04-12 22:09 | CONS ---
Date/Time of Note Date/Time of Note DATE: 04/12/17 TIME: 22:08 Assessment/Plan Assessment/Plan Additional Assessment/Plan 1. acute kidney injury Non oliguric 2. H/o ESBL UTI 3.history of bladder cancer s/p TURBT, chemotherapy/radiation, urethral damage, chemo/radiation induced urinary and fecal incontinence. He underwent cystoprostatectomy with urinary diversion, ileal conduit, colonic diversion for fistula on last admission Plan: Off abx now on TPN at 70 cc/hr - s/p 2 L IVF< cr improved to 1.58- monitor Cr will continue to follow up Consultation Date/Type/Reason Admit Date/Time Mar 30, 2017 at 02:24 Initial Consult Date 03/30/17 Type of Consultation: NEPHROLOGY Referring Provider: ALLISON HAYWARD Exam/Review of Systems Vital Signs Vitals Vital Signs Date Time Temp Pulse Resp B/P Pulse Ox O2 Delivery O2 Flow Rate FiO2 04/12/17 14:44 98.7 81 18 97/55 90 04/10/17 05:51 Room Air Intake and Output 04/11/17 04/11/17 04/12/17 15:00 23:00 07:00 Intake Total 1060 ml 1140 ml Output Total 5400 ml 1800 ml Balance -4340 ml -660 ml Results Result Diagram: 04/12/17 0435 04/12/17 0434 Results 24 hrs Laboratory Tests Test 04/12/17 04:34 04/12/17 04:35 04/12/17 08:34 04/12/17 12:38 Sodium Level 140 Potassium Level 3.8 Chloride Level 105 Carbon Dioxide Level 27 Anion Gap 12 Blood Urea Nitrogen 56 H Creatinine 1.58 H Glucose Level 119 Calcium Level 8.9 Phosphorus Level 2.8 Magnesium Level 2.1 White Blood Count 7.5 Red Blood Count 3.08 L Hemoglobin 8.8 L Hematocrit 26.7 L Mean Corpuscular Volume 86.7 Mean Corpuscular Hemoglobin 28.6 L Mean Corpuscular Hemoglobin Concent 33.0 Red Cell Distribution Width 15.1 H Platelet Count 217 Mean Platelet Volume 8.7 Neutrophils % 63.0 Lymphocytes % 27.5 Monocytes % 6.9 Eosinophils % 2.0 Basophils % 0.3 Nucleated Red Blood Cells % 0.0 Neutrophils # 4.8 Lymphocytes # 2.1 Monocytes # 0.5 Eosinophils # 0.2 Basophils # 0.0 Nucleated Red Blood Cells # 0.0 Bedside Glucose 101 134 Test 04/12/17 17:30 Bedside Glucose 110 Medications Medications Current Medications Ondansetron HCl (Zofran Inj) 4 mg Q6H PRN IV NAUSEA AND/OR VOMITING Last administered on 04/12/17 10:11; Admin Dose 4 MG; Start 03/30/17 at 03:30 Heparin Sodium (Porcine) (Heparin (5000 Units/0.5 ml)) 5,000 unit DAILY SC Last administered on 04/12/17 09:27; Admin Dose 5,000 UNIT; Start 03/30/17 at 09:00 Oxycodone/ Acetaminophen 1 tab 1 tab Q4H PRN PO PAIN Last administered on 10:09; Admin Dose 1 TAB; Start 03/30/17 at 06:00 Total Parenteral Nutrition (Tpn) 1,000 ml @ 70 mls/hr [id number] IV Last administered on 04/12/17 07:47; Admin Dose 70 MLS/HR; Start 03/31/17 at 15:00 Insulin Glargine (Lantus) 10 unit HS SC Last administered on 04/11/17 21:06; Admin Dose 10 UNIT; Start 04/01/17 at 21:00 Miscellaneous Information 1 ea NOTE XX ; Start 03/31/17 at 21:00 Glucose (Glutose) 15 gm Q15M PRN PO DECREASED GLUCOSE; Start 03/31/17 at 21:00 Glucose (Glutose) 22.5 gm Q15M PRN PO DECREASED GLUCOSE; Start 03/31/17 at 21: 00 Dextrose (D50w Syringe) 25 ml Q15M PRN IV DECREASED GLUCOSE; Start 03/31/17 at 21:00 Dextrose (D50w Syringe) 50 ml Q15M PRN IV DECREASED GLUCOSE; Start 03/31/17 at 21:00 Glucagon (Glucagen) 1 mg Q15M PRN IM DECREASED GLUCOSE; Start 03/31/17 at 21: 00 Glucose (Glutose) 15 gm Q15M PRN BUCCAL DECREASED GLUCOSE; Start 03/31/17 at 21:00 Diagnostic Test (Pha) (Accu-Chek) 1 ea 02 XX ; Start 04/06/17 at 02:00 Ascorbic Acid (Vitamin C) 500 mg DAILY PO Last administered on 04/12/17 09:26 ; Admin Dose 500 MG; Start 04/11/17 at 09:00 Zinc Sulfate (Zinc Sulfate) 220 mg DAILY PO Last administered on 04/12/17 09: 26; Admin Dose 220 MG; Start 04/11/17 at 09:00 Fentanyl (Duragesic 25 Mcg/Hr Patch) 1 patch Q3D TRANSDERM Last administered on 04/11/17 16:43; Admin Dose 1 PATCH; Start 04/11/17 at 17:00 MARGOT WOMACK MD Apr 12, 2017 22:09
[2017-04-13 01:26] VITALS: BP 103/62; RESP 18
[2017-04-13] MEDS: ACCUCHECK AT 2AM (Patients on SS coverage) XX SCH (02:00)
[2017-04-13] MEDS: Insulin NOVOLOG SS MODERATE Algorithm (SS with meals and bedtime) SC SCH ×4 (07:50→20:13)
[2017-04-13 08:00] VITALS: BP 109/63; RESP 18
[2017-04-13] MEDS: OXYCODONE/ACETAMINOPHEN (5/325) TAB PO PRN ×2 (08:17→17:38)
[2017-04-13] MEDS: ASCORBIC ACID 500 MG TAB PO SCH (08:17)
[2017-04-13] MEDS: ZINC SULFATE 220 MG CAP PO SCH (08:17)
[2017-04-13] MEDS: HEPARIN 5,000 UNIT/0.5 ML VIAL SC SCH (08:25)
--- NOTE | 2017-04-13 10:01 | CONS ---
Date/Time of Note Date/Time of Note DATE: 04/13/17 TIME: 10:00 Assessment/Plan Assessment/Plan Additional Assessment/Plan 1. acute kidney injury Non oliguric 2. H/o ESBL UTI 3.history of bladder cancer s/p TURBT, chemotherapy/radiation, urethral damage, chemo/radiation induced urinary and fecal incontinence. He underwent cystoprostatectomy with urinary diversion, ileal conduit, colonic diversion for fistula on last admission Plan: Off abx now on TPN at 70 cc/hr - s/p 2 L IVF< cr improved to 1.58 yesterdya, no chemistry to day to review yet - monitor Cr will continue to follow up Consultation Date/Type/Reason Admit Date/Time Mar 30, 2017 at 02:24 Initial Consult Date 03/30/17 Type of Consultation: NEPHROLOGY Referring Provider: ALLISON HAYWARD 24 HR Interval Summary Free Text/Dictation no chemistry today to review yet Exam/Review of Systems Vital Signs Vitals Vital Signs Date Time Temp Pulse Resp B/P Pulse Ox O2 Delivery O2 Flow Rate FiO2 04/13/17 08:00 98.2 81 18 109/63 98 04/10/17 05:51 Room Air Intake and Output 04/12/17 04/12/17 04/13/17 15:00 23:00 07:00 Intake Total 1890 ml Output Total 2300 ml Balance -410 ml Exam Constitutional: other (Patient appears weak. No acute distress. He is cachectic) Head: atraumatic, normocephalic Eyes: EOMI, PERRL Respiratory: clear to auscultation, normal air movement Cardiovascular: nl pulses, regular rate and rhythm Gastrointestinal: other (Scaphoid abdomen. Urostomy, colostomy and ileal conduit) Extremities: normal pulses + PICC line pace, on TPN Results Result Diagram: 04/12/17 0435 04/12/17 0434 Results 24 hrs Laboratory Tests Test 04/12/17 12:38 04/12/17 17:30 04/12/17 20:59 04/13/17 08:14 Bedside Glucose 134 110 144 125 Medications Medications Current Medications Ondansetron HCl (Zofran Inj) 4 mg Q6H PRN IV NAUSEA AND/OR VOMITING Last administered on 04/12/17t 10:11; Admin Dose 4 MG; Start 03/30/17 at 03:30 Heparin Sodium (Porcine) (Heparin (5000 Units/0.5 ml)) 5,000 unit DAILY SC Last administered on 04/13/17 08:25; Admin Dose 5,000 UNIT; Start 03/30/17 at 09:00 Oxycodone/ Acetaminophen 1 tab 1 tab Q4H PRN PO PAIN Last administered on 08:17; Admin Dose 1 TAB; Start 03/30/17 at 06:00 Total Parenteral Nutrition (Tpn) 1,000 ml @ 70 mls/hr [id number] IV Last administered on 04/12/17 23:12; Admin Dose 70 MLS/HR; Start 03/31/17 at 15:00 Insulin Glargine (Lantus) 10 unit HS SC Last administered on 04/11/17 21:06; Admin Dose 10 UNIT; Start 04/01/17 at 21:00 Miscellaneous Information 1 ea NOTE XX ; Start 03/31/17 at 21:00 Glucose (Glutose) 15 gm Q15M PRN PO DECREASED GLUCOSE; Start 03/31/17 at 21:00 Glucose (Glutose) 22.5 gm Q15M PRN PO DECREASED GLUCOSE; Start 03/31/17 at 21: 00 Dextrose (D50w Syringe) 25 ml Q15M PRN IV DECREASED GLUCOSE; Start 03/31/17 at 21:00 Dextrose (D50w Syringe) 50 ml Q15M PRN IV DECREASED GLUCOSE; Start 03/31/17 at 21:00 Glucagon (Glucagen) 1 mg Q15M PRN IM DECREASED GLUCOSE; Start 03/31/17 at 21: 00 Glucose (Glutose) 15 gm Q15M PRN BUCCAL DECREASED GLUCOSE; Start 03/31/17 at 21:00 Diagnostic Test (Pha) (Accu-Chek) 1 ea 02 XX ; Start 04/06/17 at 02:00 Ascorbic Acid (Vitamin C) 500 mg DAILY PO Last administered on 04/13/17 08:17 ; Admin Dose 500 MG; Start 04/11/17 at 09:00 Zinc Sulfate (Zinc Sulfate) 220 mg DAILY PO Last administered on 04/13/17 08: 17; Admin Dose 220 MG; Start 04/11/17 at 09:00 Fentanyl (Duragesic 25 Mcg/Hr Patch) 1 patch Q3D TRANSDERM Last administered on 11/5/17at 16:43; Admin Dose 1 PATCH; Start 04/11/17 at 17:00 MARGOT WOMACK MD Apr 13, 2017 10:01
--- NOTE | 2017-04-13 11:47 | CONS ---
Date/Time of Note Date/Time of Note DATE: 04/13/17 TIME: 11:47 Consult Date/Type/Reason Admit Date/Time Mar 30, 2017 at 02:24 Initial Consult Date 04/01/17 Type of Consultation: ID Ordering Provider: ALLISON HAYWARD Objective Vital Signs Date Time Temp Pulse Resp B/P Pulse Ox O2 Delivery O2 Flow Rate FiO2 04/13/17 08:00 98.2 81 18 109/63 98 04/10/17 05:51 Room Air Intake and Output 04/12/17 04/12/17 04/13/17 15:00 23:00 07:00 Intake Total 1890 ml Output Total 2300 ml Balance -410 ml Results/Medications Result Diagram: 04/12/17 0435 04/12/17 0434 Results 24 hrs Laboratory Tests Test 04/12/17 12:38 04/12/17 17:30 04/12/17 20:59 04/13/17 08:14 Bedside Glucose 134 110 144 125 Medications Current Medications Ondansetron HCl (Zofran Inj) 4 mg Q6H PRN IV NAUSEA AND/OR VOMITING Last administered on 04/12/17 10:11; Admin Dose 4 MG; Start 03/30/17 at 03:30 Heparin Sodium (Porcine) (Heparin (5000 Units/0.5 ml)) 5,000 unit DAILY SC Last administered on 04/13/17 08:25; Admin Dose 5,000 UNIT; Start 03/30/17 at 09:00 Oxycodone/ Acetaminophen 1 tab 1 tab Q4H PRN PO PAIN Last administered on 08:17; Admin Dose 1 TAB; Start 03/30/17 at 06:00 Total Parenteral Nutrition (Tpn) 1,000 ml @ 70 mls/hr [id number] IV Last administered on 04/12/17 23:12; Admin Dose 70 MLS/HR; Start 03/31/17 at 15:00 Insulin Glargine (Lantus) 10 unit HS SC Last administered on 04/11/17 21:06; Admin Dose 10 UNIT; Start 04/01/17 at 21:00 Miscellaneous Information 1 ea NOTE XX ; Start 03/31/17 at 21:00 Glucose (Glutose) 15 gm Q15M PRN PO DECREASED GLUCOSE; Start 03/31/17 at 21:00 Glucose (Glutose) 22.5 gm Q15M PRN PO DECREASED GLUCOSE; Start 03/31/17 at 21: 00 Dextrose (D50w Syringe) 25 ml Q15M PRN IV DECREASED GLUCOSE; Start 03/31/17 at 21:00 Dextrose (D50w Syringe) 50 ml Q15M PRN IV DECREASED GLUCOSE; Start 03/31/17 at 21:00 Glucagon (Glucagen) 1 mg Q15M PRN IM DECREASED GLUCOSE; Start 03/31/17 at 21: 00 Glucose (Glutose) 15 gm Q15M PRN BUCCAL DECREASED GLUCOSE; Start 03/31/17 at 21:00 Diagnostic Test (Pha) (Accu-Chek) 1 ea 02 XX ; Start 04/06/17 at 02:00 Ascorbic Acid (Vitamin C) 500 mg DAILY PO Last administered on 04/13/17 08:17 ; Admin Dose 500 MG; Start 04/11/17 at 09:00 Zinc Sulfate (Zinc Sulfate) 220 mg DAILY PO Last administered on 04/13/17 08: 17; Admin Dose 220 MG; Start 04/11/17 at 09:00 Fentanyl (Duragesic 25 Mcg/Hr Patch) 1 patch Q3D TRANSDERM Last administered on 04/11/17 16:43; Admin Dose 1 PATCH; Start 04/11/17 at 17:00 Assessment/Plan Chief Complaint/Hosp Course SUBJECTIVE: No events overnight. The patient is alert, looks comfortable, no fevers. MICROBIOLOGY: Urine culture on admission grew Escherichia coli extended- spectrum beta-lactamase and Enterococcus species===> s/p Merrem and Zyvox. PHYSICAL EXAMINATION: GENERAL: This is a cachectic, chronically ill-appearing, elderly man who is in no distress. HEENT: Head atraumatic, normocephalic. Sclerae anicteric. NECK: Supple. CHEST: Rise symmetrical. Breath sounds diminished to bases. HEART: S1, S2. ABDOMEN: Soft, bowel tones present. EXTREMITIES: Without cyanosis. ASSESSMENT: 1. S/p recurrent urinary tract infection. 2. History of bladder and prostate cancer, status post chemoradiation and cystoprostatectomy with urinary diversion and ileostomy conduit. 3. History of perforated viscus repair and multiple pelvic abscess pseudocyst drainages. 4. Acute kidney failure with a history of obstructive uropathy with bilateral JJ stent placement. 5. Cachexia. PLAN: The patient remains stable. Off abx. Continue present care, repeat cx prn. Follow recommendations of specialists. ROBIN pt Problems: KING MARQUES NP Apr 13, 2017 11:47
[2017-04-13 14:00] VITALS: BP 100/59; RESP 17
--- NOTE | 2017-04-13 14:08 | PN ---
Date/Time of Note Date/Time of Note DATE: 04/13/17 TIME: 14:03 Assessment/Plan Lines/Catheters IV Catheter Type (from Nrs): PICC Line Tomas in Place (from Nrs): No Assessment/Plan Chief Complaint/Hosp Course 1. Multiple ostomies and ileal conduit: all ostomies pink and moist; s/p multiple Perforated viscous w small bowel proximal looped ostomy (minimum 6 month wait prior to considering attempting abdominal re-exploration) -continue ostomy care -continue oral feed and supplements; hopefully can wean off tpn for discharge to snf -continue local abdominal wound care-w vac -oral diet as tolerated with protein shakes and probiotics -oob/ambulate -urology consult-urine pink w mucous 2. UTI (polymicrobial, complicated)pink with mucous urine -abx/antimicrobials per sensitivity -frequent bladder emptying/cath care -urology 3. Malnutrition: tolerating solid diet; nutrition consult noted -continue tpn -vitamins, probiotics, and nutritional supplements -encourage supplements -calorie count; hopefully wean off tpn if able for dc to snf if unable to find snf that accepts tpn 4. MANA: improving -judicious fluids -limit nephrotoxic meds -per renal 5. Bladder cancer: s/p chemo/radiation, s/p cystoprostatectomy with urinary diversion -per oncology/urology 6. Normocytic hypochromic anemia: no overt bleed noted -monitor -transfuse as needed -further workup per medical team 7. Pelvic pain:on fentanyl patch improved -pain management Thank you. Patient seen and examined in collaboration with Dr. Bang Ross Problems: Subjective 24 Hr Interval Summary Intermittent nausea, no vomiting. Discharge per rectum-creamy. Min temp overnight. Continues tpn. Calorie count continues. No fevers, chills, sob, congested cough, cp, palpitations, craig, dizziness. Ostomies pink and draining. Exam/Review of Systems Vital Signs Vitals Vital Signs Date Time Temp Pulse Resp B/P Pulse Ox O2 Delivery O2 Flow Rate FiO2 04/24/17 08:00 99.5 70 21 96/50 98 04/23/17 07:17 Room Air Intake and Output 04/23/17 04/23/17 04/24/17 15:00 23:00 07:00 Intake Total 1100 ml 1250 ml 1715 ml Output Total 800 ml 1570 ml Balance 1100 ml 450 ml 145 ml Exam Free Text/Dictation Constitutional: alert, frail, oriented Psych: nl mood/affect, no complaints Head: atraumatic, normocephalic Eyes: nl lids, nl sclera ENMT: mucosa pink and moist, nl nasal mucosa & septum Neck: non-tender, supple Respiratory: normal air movement Cardiovascular: nl pulses, regular rate and rhythm Gastrointestinal: non-tender, other (ileostomy, colostomy, urostomy- output pink with sediment-all ostomies pink and moist), soft, wound, erythema Genitourinary - Male: nl penis, nl scrotum; ileal conduit with mucous/sediment output Musculoskeletal: nl extremities to inspection, nl gait and stance Extremities: normal pulses, No edema Neurological: nl mental status, nl speech Skin: nl turgor, rash or lesions; wound vac to lower abdomen Results Result Diagram: 04/23/17 0441 04/24/17 0437 IFTIKHAR ROBERTSON NP Apr 13, 2017 14:08
--- NOTE | 2017-04-13 15:15 | PN ---
Date/Time of Note Date/Time of Note DATE: 04/13/17 TIME: 15:13 Assessment/Plan VTE Prophylaxis VTE Prophylaxis Intervention: heparin Lines/Catheters IV [facility] Type [facility] PICC Line Central line still needed: Yes Urinary Cath still in place: No Assessment/Plan Chief Complaint/Hosp Course Assessment and plan 1.urinary tract infection with polymicrobial including ESBL. ID consult is following. Status post antibiotics. Will follow. 2. Acute kidney injury. Nephrology following. Avoid nephrotoxic medications. Monitor renal panel. 3. History of bladder cancer. Patient is status post radical cystoprostatectomy and creation of ileal conduit with a colonic diversion for fistula formation. Monitor for now. Surgeon following. 4. Status post perforated viscus repair complicated by intra-abdominal abscess requiring CT-guided drainage on previous admission. Wound VAC removed. Continue with surgeon recommendations. 5. Severe protein calorie malnutrition. Continue TPN and soft diet. 6. anemia. Likely of chronic disease. Monitor H&H and transfuse blood products as needed. Disposition plan: Awaiting for [facility] facility placement. check AM labs. continue supportive care Discussed plan of care with Dr. Tate Problems: Subjective 24 Hr Interval Summary Free Text/Dictation no s/s/ of distress. comfortable at present Exam/Review of Systems Vital Signs Vitals Vital Signs Date Time Temp Pulse Resp B/P Pulse Ox O2 Delivery O2 Flow Rate FiO2 04/13/17 08:00 98.2 81 18 109/63 98 04/10/17 05:51 Room Air Intake and Output 04/12/17 04/12/17 04/13/17 15:00 23:00 07:00 Intake Total 1890 ml Output Total 2300 ml Balance -410 ml Exam Constitutional: alert, oriented Psych: nl mood/affect Head: normocephalic Eyes: nl conjunctiva Respiratory: clear to auscultation, normal air movement Cardiovascular: regular rate and rhythm Gastrointestinal: other (Wound VAC removed. 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 Wound appears clean at present.) Results Result Diagram: 04/12/17 0435 04/12/17 0434 Results 24 hrs Laboratory Tests Test 04/12/17 17:30 04/12/17 20:59 04/13/17 08:14 04/13/17 12:29 Bedside Glucose 110 144 125 103 Medications Medications Current Medications Ondansetron HCl (Zofran Inj) 4 mg Q6H PRN IV NAUSEA AND/OR VOMITING Last administered on 04/12/17 10:11; Admin Dose 4 MG; Start 03/30/17 at 03:30 Heparin Sodium (Porcine) (Heparin (5000 Units/0.5 ml)) 5,000 unit DAILY SC Last administered on 04/13/17 08:25; Admin Dose 5,000 UNIT; Start 03/30/17 at 09:00 Oxycodone/ Acetaminophen 1 tab 1 tab Q4H PRN PO PAIN Last administered on 08:17; Admin Dose 1 TAB; Start 03/30/17 at 06:00 Total Parenteral Nutrition (Tpn) 1,000 ml @ 70 mls/hr [id number] IV Last administered on 04/12/17 23:12; Admin Dose 70 MLS/HR; Start 03/31/17 at 15:00 Insulin Glargine (Lantus) 10 unit HS SC Last administered on 04/11/17 21:06; Admin Dose 10 UNIT; Start 04/01/17 at 21:00 Miscellaneous Information 1 ea NOTE XX ; Start 03/31/17 at 21:00 Glucose (Glutose) 15 gm Q15M PRN PO DECREASED GLUCOSE; Start 03/31/17 at 21:00 Glucose (Glutose) 22.5 gm Q15M PRN PO DECREASED GLUCOSE; Start 03/31/17 at 21: 00 Dextrose (D50w Syringe) 25 ml Q15M PRN IV DECREASED GLUCOSE; Start 03/31/17 at 21:00 Dextrose (D50w Syringe) 50 ml Q15M PRN IV DECREASED GLUCOSE; Start 03/31/17 at 21:00 Glucagon (Glucagen) 1 mg Q15M PRN IM DECREASED GLUCOSE; Start 03/31/17 at 21: 00 Glucose (Glutose) 15 gm Q15M PRN BUCCAL DECREASED GLUCOSE; Start 03/31/17 at 21:00 Diagnostic Test (Pha) (Accu-Chek) 1 ea 02 XX ; Start 04/06/17 at 02:00 Ascorbic Acid (Vitamin C) 500 mg DAILY PO Last administered on 04/13/17 08:17 ; Admin Dose 500 MG; Start 04/11/17 at 09:00 Zinc Sulfate (Zinc Sulfate) 220 mg DAILY PO Last administered on 04/13/17 08: 17; Admin Dose 220 MG; Start 04/11/17 at 09:00 Fentanyl (Duragesic 25 Mcg/Hr Patch) 1 patch Q3D TRANSDERM Last administered on 04/11/17 16:43; Admin Dose 1 PATCH; Start 04/11/17 at 17:00 ALLISON HAYWARD Apr 13, 2017 15:15
[2017-04-13] MEDS: TPN 1,000 ML IV SCH (17:27)
[2017-04-13] MEDS: ONDANSETRON 4 MG INJ IV PRN (17:37)
[2017-04-13 20:03] VITALS: BP 97/55; RESP 18
[2017-04-13] MEDS: INSULIN GLARGINE [LANtus] 3 ML PEN SC SCH (20:23)
[2017-04-14] MEDS: OXYCODONE/ACETAMINOPHEN (5/325) TAB PO PRN ×2 (00:27→22:38)
[2017-04-14] MEDS: ONDANSETRON 4 MG INJ IV PRN ×2 (00:30→20:46)
[2017-04-14 01:26] VITALS: BP 109/65; RESP 18
[2017-04-14] MEDS: ACCUCHECK AT 2AM (Patients on SS coverage) XX SCH (02:00)
[2017-04-14 05:44] LABS: ALBUMIN 3.8 g/dl (3.3-4.9); ALBUMIN/GLOBULIN RATIO 0.88; BILIRUBIN,INDIRECT 0.1 mg/dl (0-1.1); BILIRUBIN,TOTAL 0.1 mg/dl (0.2-1.3); CALCIUM 9.5 mg/dl (8.4-10.2); CREATININE 1.72 mg/dl (0.61-1.24); POTASSIUM 3.9 mmol/L (3.5-5.1); TOTAL PROTEIN 8.1 g/dl (6.1-8.1)
[2017-04-14 07:13] LABS: MAGNESIUM 2.2 mg/dl (1.7-2.5); PHOSPHORUS 3.4 mg/dl (2.5-4.9)
[2017-04-14] MEDS: TPN 1,000 ML IV SCH ×2 (07:26→22:32)
[2017-04-14 08:39] VITALS: BP 93/54; RESP 16
[2017-04-14] MEDS: ASCORBIC ACID 500 MG TAB PO SCH (08:46)
[2017-04-14] MEDS: ZINC SULFATE 220 MG CAP PO SCH (08:46)
[2017-04-14] MEDS: HEPARIN 5,000 UNIT/0.5 ML VIAL SC SCH (08:51)
[2017-04-14] MEDS: Insulin NOVOLOG SS MODERATE Algorithm (SS with meals and bedtime) SC SCH ×4 (09:16→20:27)
--- NOTE | 2017-04-14 10:16 | PN ---
Date/Time of Note Date/Time of Note DATE: 04/14/17 TIME: 10:11 Assessment/Plan Lines/Catheters IV Catheter Type (from Nrs): PICC Line Tomas in Place (from Nrs): No Assessment/Plan Chief Complaint/Hosp Course 1. Multiple ostomies and ileal conduit: all ostomies pink and moist; s/p multiple Perforated viscous w small bowel proximal looped ostomy (minimum 6 month wait prior to considering attempting abdominal re-exploration) -continue ostomy care -continue oral feed and supplements; hopefully can wean off tpn for discharge to snf -continue local abdominal wound care-w vac -oral diet as tolerated with protein shakes and probiotics -oob/ambulate -urology consult- yellow urine w mucous 2. UTI (polymicrobial, complicated)pink with mucous urine -abx/antimicrobials per sensitivity -frequent bladder emptying/cath care -urology 3. Malnutrition: tolerating solid diet; nutrition consult noted -continue tpn -vitamins, probiotics, and nutritional supplements -encourage supplements -calorie count; hopefully wean off tpn if able for dc to snf if unable to find snf that accepts tpn 4. MANA:cr worse today -judicious fluids -limit nephrotoxic meds -per renal 5. Bladder cancer: s/p chemo/radiation, s/p cystoprostatectomy with urinary diversion -per oncology/urology 6. Normocytic hypochromic anemia: no overt bleed noted -monitor -transfuse as needed -further workup per medical team 7. Pelvic pain:on fentanyl patch improved -pain management Thank you. Patient seen and examined in collaboration with Dr. Bang Ross Problems: Subjective 24 Hr Interval Summary Minimal pelvic pain. Improved nausea, no vomiting. Ileal conduit with cloudy, creamy urine. ?2kg weight loss. No fevers, chills, sob, congested cough, cp, palpitations, craig, dizziness, n/v/d/dysuria. No rectal drainage Exam/Review of Systems Vital Signs Vitals Vital Signs Date Time Temp Pulse Resp B/P Pulse Ox O2 Delivery O2 Flow Rate FiO2 04/14/17 08:39 98.6 94 16 93/54 98 Intake and Output 04/13/17 04/13/17 04/14/17 15:00 23:00 07:00 Intake Total 1390 ml 360 ml Output Total 1960 ml 2550 ml Balance -570 ml -2190 ml Exam Free Text/Dictation Constitutional: alert, frail, oriented Psych: nl mood/affect, no complaints Head: atraumatic, normocephalic Eyes: nl lids, nl sclera ENMT: mucosa pink and moist, nl nasal mucosa & septum Neck: non-tender, supple Respiratory: normal air movement Cardiovascular: nl pulses, regular rate and rhythm Gastrointestinal: non-tender, other (ileostomy, colostomy, urostomy- output yellow cloudy-all ostomies pink and moist), soft, wound scan drainage, no erythema Genitourinary - Male: nl penis, nl scrotum; ileal conduit with mucous/sediment output Musculoskeletal: nl extremities to inspection, nl gait and stance Extremities: normal pulses, No edema Neurological: nl mental status, nl speech Skin: nl turgor, rash or lesions; wound vac to lower abdomen Results Result Diagram: 04/12/17 0435 04/14/17 0438 IFTIKHAR ROBERTSON NP Apr 14, 2017 10:16
--- NOTE | 2017-04-14 12:40 | CONS ---
Date/Time of Note Date/Time of Note DATE: 04/14/17 TIME: 12:40 Consult Date/Type/Reason Admit Date/Time Mar 30, 2017 at 02:24 Initial Consult Date 04/01/17 Type of Consultation: ID Ordering Provider: ALLISON HAYWARD Objective Vital Signs Date Time Temp Pulse Resp B/P Pulse Ox O2 Delivery O2 Flow Rate FiO2 04/14/17 08:39 98.6 94 16 93/54 98 Intake and Output 04/13/17 04/13/17 04/14/17 15:00 23:00 07:00 Intake Total 1390 ml 360 ml Output Total 1960 ml 2550 ml Balance -570 ml -2190 ml Results/Medications Result Diagram: 04/12/17 0435 04/14/17 0438 Results 24 hrs Laboratory Tests Test 04/13/17 17:25 04/13/17 20:12 04/14/17 04:38 04/14/17 08:54 Bedside Glucose 104 143 184 Sodium Level 141 Potassium Level 3.9 Chloride Level 101 Carbon Dioxide Level 28 Anion Gap 16 Blood Urea Nitrogen 56 H Creatinine 1.72 H Glucose Level 120 Calcium Level 9.5 Phosphorus Level 3.4 Magnesium Level 2.2 Total Bilirubin 0.1 L Direct Bilirubin 0.00 Indirect Bilirubin 0.1 Aspartate Amino Transf (AST/SGOT) 61 H Alanine Aminotransferase (ALT/SGPT) 88 H Alkaline Phosphatase 513 H Total Protein 8.1 Albumin 3.8 Globulin 4.30 H Albumin/Globulin Ratio 0.88 Test 04/14/17 12:25 Bedside Glucose 119 Medications Current Medications Ondansetron HCl (Zofran Inj) 4 mg Q6H PRN IV NAUSEA AND/OR VOMITING Last administered on 04/14/17 00:30; Admin Dose 4 MG; Start 03/30/17 at 03:30 Heparin Sodium (Porcine) (Heparin (5000 Units/0.5 ml)) 5,000 unit DAILY SC Last administered on 04/14/17 08:51; Admin Dose 5,000 UNIT; Start 03/30/17 at 09:00 Oxycodone/ Acetaminophen 1 tab 1 tab Q4H PRN PO PAIN Last administered on 00:27; Admin Dose 1 TAB; Start 03/30/17 at 06:00 Total Parenteral Nutrition (Tpn) 1,000 ml @ 70 mls/hr [id number] IV Last administered on 04/14/17 07:26; Admin Dose 70 MLS/HR; Start 03/31/17 at 15:00 Insulin Glargine (Lantus) 10 unit HS SC Last administered on 04/13/17 20:23; Admin Dose 10 UNIT; Start 04/01/17 at 21:00 Miscellaneous Information 1 ea NOTE XX ; Start 03/31/17 at 21:00 Glucose (Glutose) 15 gm Q15M PRN PO DECREASED GLUCOSE; Start 03/31/17 at 21:00 Glucose (Glutose) 22.5 gm Q15M PRN PO DECREASED GLUCOSE; Start 03/31/17 at 21: 00 Dextrose (D50w Syringe) 25 ml Q15M PRN IV DECREASED GLUCOSE; Start 03/31/17 at 21:00 Dextrose (D50w Syringe) 50 ml Q15M PRN IV DECREASED GLUCOSE; Start 03/31/17 at 21:00 Glucagon (Glucagen) 1 mg Q15M PRN IM DECREASED GLUCOSE; Start 03/31/17 at 21: 00 Glucose (Glutose) 15 gm Q15M PRN BUCCAL DECREASED GLUCOSE; Start 03/31/17 at 21:00 Diagnostic Test (Pha) (Accu-Chek) 1 ea 02 XX ; Start 04/06/17 at 02:00 Ascorbic Acid (Vitamin C) 500 mg DAILY PO Last administered on 04/14/17 08:46 ; Admin Dose 500 MG; Start 04/11/17 at 09:00 Zinc Sulfate (Zinc Sulfate) 220 mg DAILY PO Last administered on 04/14/17 08: 46; Admin Dose 220 MG; Start 04/11/17 at 09:00 Fentanyl (Duragesic 25 Mcg/Hr Patch) 1 patch Q3D TRANSDERM Last administered on 04/11/17 16:43; Admin Dose 1 PATCH; Start 04/11/17 at 17:00 Assessment/Plan Chief Complaint/Hosp Course SUBJECTIVE: No events overnight. The patient is alert, looks comfortable, afebrile. Tm 99.7. MICROBIOLOGY: Urine culture on admission grew Escherichia coli extended- spectrum beta-lactamase and Enterococcus species===> s/p Merrem and Zyvox. PHYSICAL EXAMINATION: GENERAL: This is a cachectic, chronically ill-appearing, elderly man who is in no distress. HEENT: Head atraumatic, normocephalic. Sclerae anicteric. NECK: Supple. CHEST: Rise symmetrical. Breath sounds diminished to bases. HEART: S1, S2. ABDOMEN: Soft, bowel tones present. EXTREMITIES: Without cyanosis. ASSESSMENT: 1. S/p recurrent urinary tract infection. 2. History of bladder and prostate cancer, status post chemoradiation and cystoprostatectomy with urinary diversion and ileostomy conduit. 3. History of perforated viscus repair and multiple pelvic abscess pseudocyst drainages. 4. Acute kidney failure with a history of obstructive uropathy with bilateral JJ stent placement. 5. Cachexia. PLAN: The patient remains stable. Off abx. Continue present care, repeat cx prn. Follow recommendations of specialists. 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
--- NOTE | 2017-04-14 12:44 | PN ---
Date/Time of Note Date/Time of Note DATE: 04/14/17 TIME: 12:39 Assessment/Plan VTE Prophylaxis VTE Prophylaxis Intervention: SCD's Lines/Catheters IV [facility] Type (from [facility]): PICC Line Central line still needed: Yes Urinary Cath still in place: No Assessment/Plan Chief Complaint/Hosp Course Assessment and plan 1.urinary tract infection with polymicrobial including ESBL. ID consult is following. Status post antibiotics. Will follow. 2. Acute kidney injury. Nephrology following. Avoid nephrotoxic medications. Monitor renal panel. 3. History of bladder cancer. Patient is status post radical cystoprostatectomy and creation of ileal conduit with a colonic diversion for fistula formation. Monitor for now. Surgeon following. 4. Status post perforated viscus repair complicated by intra-abdominal abscess requiring CT-guided drainage on previous admission. Wound VAC removed. Continue with surgeon recommendations. 5. Severe protein calorie malnutrition. Continue TPN and soft diet. 6. anemia. Likely of chronic disease. Monitor H&H and transfuse blood products as needed. Disposition plan: Awaiting for [facility] facility placement. analgesics as needed. awaiting bed placement Discussed plan of care with Dr. Tate Problems: Subjective 24 Hr Interval Summary Free Text/Dictation no s/s of distress. comfortable at present Exam/Review of Systems Vital Signs Vitals Vital Signs Date Time Temp Pulse Resp B/P Pulse Ox O2 Delivery O2 Flow Rate FiO2 04/14/17 08:39 98.6 94 16 93/54 98 Intake and Output 04/13/17 04/13/17 04/14/17 15:00 23:00 07:00 Intake Total 1390 ml 360 ml Output Total 1960 ml 2550 ml Balance -570 ml -2190 ml Exam Constitutional: alert, oriented Psych: nl mood/affect Head: normocephalic Eyes: nl conjunctiva Respiratory: clear to auscultation, normal air movement Cardiovascular: regular rate and rhythm Gastrointestinal: other (Wound VAC removed. 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 Wound appears clean at present.) Results Result Diagram: 04/12/17 0435 04/14/17 0438 Results 24 hrs Laboratory Tests Test 04/13/17 17:25 04/13/17 20:12 04/14/17 04:38 04/14/17 08:54 Bedside Glucose 104 143 184 Sodium Level 141 Potassium Level 3.9 Chloride Level 101 Carbon Dioxide Level 28 Anion Gap 16 Blood Urea Nitrogen 56 H Creatinine 1.72 H Glucose Level 120 Calcium Level 9.5 Phosphorus Level 3.4 Magnesium Level 2.2 Total Bilirubin 0.1 L Direct Bilirubin 0.00 Indirect Bilirubin 0.1 Aspartate Amino Transf (AST/SGOT) 61 H Alanine Aminotransferase (ALT/SGPT) 88 H Alkaline Phosphatase 513 H Total Protein 8.1 Albumin 3.8 Globulin 4.30 H Albumin/Globulin Ratio 0.88 Test 04/14/17 12:25 Bedside Glucose 119 Medications Medications Current Medications Ondansetron HCl (Zofran Inj) 4 mg Q6H PRN IV NAUSEA AND/OR VOMITING Last administered on 04/14/17 00:30; Admin Dose 4 MG; Start 03/30/17 at 03:30 Heparin Sodium (Porcine) (Heparin (5000 Units/0.5 ml)) 5,000 unit DAILY SC Last administered on 04/14/17 08:51; Admin Dose 5,000 UNIT; Start 03/30/17 at 09:00 Oxycodone/ Acetaminophen 1 tab 1 tab Q4H PRN PO PAIN Last administered on 00:27; Admin Dose 1 TAB; Start 03/30/17 at 06:00 Total Parenteral Nutrition (Tpn) 1,000 ml @ 70 mls/hr [id number] IV Last administered on 04/14/17 07:26; Admin Dose 70 MLS/HR; Start 03/31/17 at 15:00 Insulin Glargine (Lantus) 10 unit HS SC Last administered on 04/13/17 20:23; Admin Dose 10 UNIT; Start 04/01/17 at 21:00 Miscellaneous Information 1 ea NOTE XX ; Start 03/31/17 at 21:00 Glucose (Glutose) 15 gm Q15M PRN PO DECREASED GLUCOSE; Start 03/31/17 at 21:00 Glucose (Glutose) 22.5 gm Q15M PRN PO DECREASED GLUCOSE; Start 03/31/17 at 21: 00 Dextrose (D50w Syringe) 25 ml Q15M PRN IV DECREASED GLUCOSE; Start 03/31/17 at 21:00 Dextrose (D50w Syringe) 50 ml Q15M PRN IV DECREASED GLUCOSE; Start 03/31/17 at 21:00 Glucagon (Glucagen) 1 mg Q15M PRN IM DECREASED GLUCOSE; Start 03/31/17 at 21: 00 Glucose (Glutose) 15 gm Q15M PRN BUCCAL DECREASED GLUCOSE; Start 03/31/17 at 21:00 Diagnostic Test (Pha) (Accu-Chek) 1 ea 02 XX ; Start 04/06/17 at 02:00 Ascorbic Acid (Vitamin C) 500 mg DAILY PO Last administered on 04/14/17 08:46 ; Admin Dose 500 MG; Start 04/11/17 at 09:00 Zinc Sulfate (Zinc Sulfate) 220 mg DAILY PO Last administered on 04/14/17 08: 46; Admin Dose 220 MG; Start 04/11/17 at 09:00 Fentanyl (Duragesic 25 Mcg/Hr Patch) 1 patch Q3D TRANSDERM Last administered on 04/11/17 16:43; Admin Dose 1 PATCH; Start 04/11/17 at 17:00 ALLISON HAYWARD Apr 14, 2017 12:44
--- NOTE | 2017-04-14 19:11 | CONS ---
Date/Time of Note Date/Time of Note DATE: 04/14/17 TIME: 19:09 Assessment/Plan Assessment/Plan Additional Assessment/Plan 1. acute kidney injury Non oliguric 2. H/o ESBL UTI 3.history of bladder cancer s/p TURBT, chemotherapy/radiation, urethral damage, chemo/radiation induced urinary and fecal incontinence. He underwent cystoprostatectomy with urinary diversion, ileal conduit, colonic diversion for fistula on last admission Plan: Off abx now on TPN at 70 cc/hr - s/p 2 L IVF< cr improved to 1.58 then again bumped to 1.72 today- will monitor Cr - if continues to rise then we will consider iVF hydration will continue to follow up Consultation Date/Type/Reason Admit Date/Time Mar 30, 2017 at 02:24 Initial Consult Date 03/30/17 Type of Consultation: NEPHROLOGY Referring Provider: ALLISON HAYWARD 24 HR Interval Summary Free Text/Dictation Cr 1,72, BP stable, afebrile Exam/Review of Systems Vital Signs Vitals Vital Signs Date Time Temp Pulse Resp B/P Pulse Ox O2 Delivery O2 Flow Rate FiO2 04/14/17 08:39 98.6 94 16 93/54 98 Intake and Output 04/13/17 04/13/17 04/14/17 15:00 23:00 07:00 Intake Total 1390 ml 360 ml Output Total 1960 ml 2550 ml Balance -570 ml -2190 ml Exam Constitutional: other (Patient appears weak. No acute distress. He is cachectic) Head: atraumatic, normocephalic Eyes: EOMI, PERRL Respiratory: clear to auscultation, normal air movement Cardiovascular: nl pulses, regular rate and rhythm Gastrointestinal: other (Scaphoid abdomen. Urostomy, colostomy and ileal conduit) Extremities: normal pulses + PICC line pace, on TPN Results Result Diagram: 04/12/17 0435 04/14/17 0438 Results 24 hrs Laboratory Tests Test 04/13/17 20:12 04/14/17 04:38 04/14/17 08:54 04/14/17 12:25 Bedside Glucose 143 184 119 Sodium Level 141 Potassium Level 3.9 Chloride Level 101 Carbon Dioxide Level 28 Anion Gap 16 Blood Urea Nitrogen 56 H Creatinine 1.72 H Glucose Level 120 Calcium Level 9.5 Phosphorus Level 3.4 Magnesium Level 2.2 Total Bilirubin 0.1 L Direct Bilirubin 0.00 Indirect Bilirubin 0.1 Aspartate Amino Transf (AST/SGOT) 61 H Alanine Aminotransferase (ALT/SGPT) 88 H Alkaline Phosphatase 513 H Total Protein 8.1 Albumin 3.8 Globulin 4.30 H Albumin/Globulin Ratio 0.88 Test 04/14/17 17:36 Bedside Glucose 109 Medications Medications Current Medications Ondansetron HCl (Zofran Inj) 4 mg Q6H PRN IV NAUSEA AND/OR VOMITING Last administered on 04/14/17 00:30; Admin Dose 4 MG; Start 03/30/17 at 03:30 Heparin Sodium (Porcine) (Heparin (5000 Units/0.5 ml)) 5,000 unit DAILY SC Last administered on 04/14/17 08:51; Admin Dose 5,000 UNIT; Start 03/30/17 at 09:00 Oxycodone/ Acetaminophen 1 tab 1 tab Q4H PRN PO PAIN Last administered on 00:27; Admin Dose 1 TAB; Start 03/30/17 at 06:00 Total Parenteral Nutrition (Tpn) 1,000 ml @ 70 mls/hr [id number] IV Last administered on 04/14/17 07:26; Admin Dose 70 MLS/HR; Start 03/31/17 at 15:00 Insulin Glargine (Lantus) 10 unit HS SC Last administered on 04/13/17 20:23; Admin Dose 10 UNIT; Start 04/01/17 at 21:00 Miscellaneous Information 1 ea NOTE XX ; Start 03/31/17 at 21:00 Glucose (Glutose) 15 gm Q15M PRN PO DECREASED GLUCOSE; Start 03/31/17 at 21:00 Glucose (Glutose) 22.5 gm Q15M PRN PO DECREASED GLUCOSE; Start 03/31/17 at 21: 00 Dextrose (D50w Syringe) 25 ml Q15M PRN IV DECREASED GLUCOSE; Start 03/31/17 at 21:00 Dextrose (D50w Syringe) 50 ml Q15M PRN IV DECREASED GLUCOSE; Start 03/31/17 at 21:00 Glucagon (Glucagen) 1 mg Q15M PRN IM DECREASED GLUCOSE; Start 03/31/17 at 21: 00 Glucose (Glutose) 15 gm Q15M PRN BUCCAL DECREASED GLUCOSE; Start 03/31/17 at 21:00 Diagnostic Test (Pha) (Accu-Chek) 1 ea 02 XX ; Start 04/06/17 at 02:00 Ascorbic Acid (Vitamin C) 500 mg DAILY PO Last administered on 04/14/17 08:46 ; Admin Dose 500 MG; Start 04/11/17 at 09:00 Zinc Sulfate (Zinc Sulfate) 220 mg DAILY PO Last administered on 04/14/17 08: 46; Admin Dose 220 MG; Start 04/11/17 at 09:00 Fentanyl (Duragesic 25 Mcg/Hr Patch) 1 patch Q3D TRANSDERM Last administered on 04/14/17 18:23; Admin Dose 1 PATCH; Start 04/11/17 at 17:00 MARGOT WOMACK MD Apr 14, 2017 19:11
[2017-04-14 20:00] VITALS: BP 95/52; RESP 18
[2017-04-14] MEDS: INSULIN GLARGINE [LANtus] 3 ML PEN SC SCH (20:25)
[2017-04-15] MEDS: ACCUCHECK AT 2AM (Patients on SS coverage) XX SCH ×2 (02:00→21:14)
[2017-04-15 02:27] VITALS: BP 101/54
[2017-04-15 07:28] VITALS: BP 99/59; PULSE 82; RESP 20
--- NOTE | 2017-04-15 08:39 | CONS ---
Date/Time of Note Date/Time of Note DATE: 04/15/17 TIME: 08:32 Assessment/Plan Assessment/Plan Additional Assessment/Plan 1. acute kidney injury Non oliguric 2. H/o ESBL UTI 3.history of bladder cancer s/p TURBT, chemotherapy/radiation, urethral damage, chemo/radiation induced urinary and fecal incontinence. He underwent cystoprostatectomy with urinary diversion, ileal conduit, colonic diversion for fistula on last admission Plan: Off abx now on TPN at 70 cc/hr - s/p 2 L IVF, Cr 1.72 yesterday- no labs today to review yet - will monitor Cr - if continues to rise then we will consider iVF hydration will continue to follow up Consultation Date/Type/Reason Admit Date/Time Mar 30, 2017 at 02:24 Initial Consult Date 03/30/17 Type of Consultation: NEPHROLOGY Referring Provider: ALLISON HAYWARD 24 HR Interval Summary Free Text/Dictation Cr 1.72 yesterday, no chemistry today to review yet Exam/Review of Systems Vital Signs Vitals Vital Signs Date Time Temp Pulse Resp B/P Pulse Ox O2 Delivery O2 Flow Rate FiO2 04/15/17 07:28 99.2 82 20 99/59 97 Intake and Output 04/14/17 04/14/17 04/15/17 15:00 23:00 07:00 Intake Total 950 ml 2200 ml 800 ml Output Total 1700 ml 1700 ml Balance 950 ml 500 ml -900 ml Exam Constitutional: other (Patient appears weak. No acute distress. He is cachectic) Head: atraumatic, normocephalic Eyes: EOMI, PERRL Respiratory: clear to auscultation, normal air movement Cardiovascular: nl pulses, regular rate and rhythm Gastrointestinal: other (Scaphoid abdomen. Urostomy, colostomy and ileal conduit) Extremities: normal pulses + PICC line in place , on TPN Results Result Diagram: 04/12/17 0435 04/14/17 0438 Results 24 hrs Laboratory Tests Test 04/14/17 08:54 04/14/17 12:25 04/14/17 17:36 04/14/17 20:20 Bedside Glucose 184 119 109 125 Medications Medications Current Medications Ondansetron HCl (Zofran Inj) 4 mg Q6H PRN IV NAUSEA AND/OR VOMITING Last administered on 04/14/17t 20:46; Admin Dose 4 MG; Start 03/30/17 at 03:30 Heparin Sodium (Porcine) (Heparin (5000 Units/0.5 ml)) 5,000 unit DAILY SC Last administered on 04/14/17 08:51; Admin Dose 5,000 UNIT; Start 03/30/17 at 09:00 Oxycodone/ Acetaminophen 1 tab 1 tab Q4H PRN PO PAIN Last administered on 22:38; Admin Dose 1 TAB; Start 03/30/17 at 06:00 Total Parenteral Nutrition (Tpn) 1,000 ml @ 70 mls/hr [id number] IV Last administered on 04/14/17 22:32; Admin Dose 70 MLS/HR; Start 03/31/17 at 15:00 Insulin Glargine (Lantus) 10 unit HS SC Last administered on 04/14/17 20:25; Admin Dose 10 UNIT; Start 04/01/17 at 21:00 Miscellaneous Information 1 ea NOTE XX ; Start 03/31/17 at 21:00 Glucose (Glutose) 15 gm Q15M PRN PO DECREASED GLUCOSE; Start 03/31/17 at 21:00 Glucose (Glutose) 22.5 gm Q15M PRN PO DECREASED GLUCOSE; Start 03/31/17 at 21: 00 Dextrose (D50w Syringe) 25 ml Q15M PRN IV DECREASED GLUCOSE; Start 03/31/17 at 21:00 Dextrose (D50w Syringe) 50 ml Q15M PRN IV DECREASED GLUCOSE; Start 03/31/17 at 21:00 Glucagon (Glucagen) 1 mg Q15M PRN IM DECREASED GLUCOSE; Start 03/31/17 at 21: 00 Glucose (Glutose) 15 gm Q15M PRN BUCCAL DECREASED GLUCOSE; Start 03/31/17 at 21:00 Diagnostic Test (Pha) (Accu-Chek) 1 ea 02 XX ; Start 04/06/17 at 02:00 Ascorbic Acid (Vitamin C) 500 mg DAILY PO Last administered on 04/14/17 08:46 ; Admin Dose 500 MG; Start 04/11/17 at 09:00 Zinc Sulfate (Zinc Sulfate) 220 mg DAILY PO Last administered on 04/14/17 08: 46; Admin Dose 220 MG; Start 04/11/17 at 09:00 Fentanyl (Duragesic 25 Mcg/Hr Patch) 1 patch Q3D TRANSDERM Last administered on 04/14/17t 18:23; Admin Dose 1 PATCH; Start 04/11/17 at 17:00 MARGOT WOAMCK MD Apr 15, 2017 08:39
[2017-04-15] MEDS: ASCORBIC ACID 500 MG TAB PO SCH (09:04)
[2017-04-15] MEDS: ZINC SULFATE 220 MG CAP PO SCH (09:04)
[2017-04-15] MEDS: HEPARIN 5,000 UNIT/0.5 ML VIAL SC SCH (09:09)
[2017-04-15] MEDS: Insulin NOVOLOG SS MODERATE Algorithm (SS with meals and bedtime) SC SCH ×4 (09:29→21:00)
--- NOTE | 2017-04-15 12:36 | PN ---
Date/Time of Note Date/Time of Note DATE: 04/15/17 TIME: 12:34 Assessment/Plan Lines/Catheters IV Catheter Type (from Nrs): PICC Line Tomas in Place (from Nrs): No Assessment/Plan Chief Complaint/Hosp Course 1. Multiple ostomies and ileal conduit: all ostomies pink and moist; s/p multiple Perforated viscous w small bowel proximal looped ostomy (minimum 6 month wait prior to considering attempting abdominal re-exploration); rectal discharge -continue ostomy care -continue oral feed and supplements; hopefully can wean off tpn for discharge to snf -continue local abdominal wound care-w vac -oral diet as tolerated with protein shakes and probiotics -oob/ambulate -urology consult- yellow urine w mucous 2. UTI (polymicrobial, complicated)pink with mucous urine -abx/antimicrobials per sensitivity -frequent bladder emptying/cath care -urology 3. Malnutrition: tolerating solid diet; spoke w chart clerk -continue tpn -vitamins, probiotics, and nutritional supplements -encourage supplements -calorie count; hopefully wean off tpn if able for dc to snf if unable to find snf that accepts tpn -started on antimotility agent and fish oil 4. MANA:cr worse today -judicious fluids -limit nephrotoxic meds -per renal 5. Bladder cancer: s/p chemo/radiation, s/p cystoprostatectomy with urinary diversion -per oncology/urology 6. Normocytic hypochromic anemia: no overt bleed noted -monitor -transfuse as needed -further workup per medical team 7. Pelvic pain:on fentanyl patch improved -pain management Thank you. Patient seen and examined in collaboration with Dr. Bang Ross Problems: Subjective 24 Hr Interval Summary Still with pelvic pain. Nausea with vomiting today. No fevers, chills, sob, congested cough, cp, palpitations, craig, dizziness, n/v/d/dysuria. Exam/Review of Systems Vital Signs Vitals Vital Signs Date Time Temp Pulse Resp B/P Pulse Ox O2 Delivery O2 Flow Rate FiO2 04/16/17 07:43 98.2 81 19 114/59 99 04/15/17 18:33 Room Air Intake and Output 04/15/17 04/15/17 04/16/17 15:00 23:00 07:00 Intake Total 550 ml 1655 ml 1245 ml Output Total 2385 ml 2150 ml Balance 550 ml -730 ml -905 ml Exam Free Text/Dictation Constitutional: alert, frail, oriented Psych: nl mood/affect, no complaints Head: atraumatic, normocephalic Eyes: nl lids, nl sclera ENMT: mucosa pink and moist, nl nasal mucosa & septum Neck: non-tender, supple Respiratory: normal air movement Cardiovascular: nl pulses, regular rate and rhythm Gastrointestinal: non-tender, other (ileostomy, colostomy, urostomy- output yellow cloudy-all ostomies pink and moist), soft, wound scan drainage, no erythema Genitourinary - Male: nl penis, nl scrotum; ileal conduit with mucous/sediment output Musculoskeletal: nl extremities to inspection, nl gait and stance Extremities: normal pulses, No edema Neurological: nl mental status, nl speech Skin: nl turgor, rash or lesions; lower abdomen with dressing, min drainage Results Result Diagram: 04/16/17 0553 04/16/17 0430 IFTIKHAR ROBERTSON MEDICAL CARE MANAGER Apr 15, 2017 12:36
[2017-04-15] MEDS ORDERED: FISH OIL 1,000 MG CAP PO ONE (13:00)
--- NOTE | 2017-04-15 13:09 | CONS ---
Date/Time of Note Date/Time of Note DATE: 04/15/17 TIME: 13:09 Consult Date/Type/Reason Admit Date/Time Mar 30, 2017 at 02:24 Initial Consult Date 04/01/17 Type of Consultation: ID Ordering Provider: ALLISON HAYWARD Objective Vital Signs Date Time Temp Pulse Resp B/P Pulse Ox O2 Delivery O2 Flow Rate FiO2 04/15/17 07:28 99.2 82 20 99/59 97 Intake and Output 04/14/17 04/14/17 04/15/17 15:00 23:00 07:00 Intake Total 950 ml 2200 ml 800 ml Output Total 1700 ml 1700 ml Balance 950 ml 500 ml -900 ml Results/Medications Result Diagram: 04/12/17 0435 04/14/17 0438 Results 24 hrs Laboratory Tests Test 04/14/17 17:36 04/14/17 20:20 04/15/17 09:18 04/15/17 12:45 Bedside Glucose 109 125 205 98 Medications Current Medications Ondansetron HCl (Zofran Inj) 4 mg Q6H PRN IV NAUSEA AND/OR VOMITING Last administered on 04/14/17 20:46; Admin Dose 4 MG; Start 03/30/17 at 03:30 Heparin Sodium (Porcine) (Heparin (5000 Units/0.5 ml)) 5,000 unit DAILY SC Last administered on 04/15/17 09:09; Admin Dose 5,000 UNIT; Start 03/30/17 at 09:00 Oxycodone/ Acetaminophen 1 tab 1 tab Q4H PRN PO PAIN Last administered on 22:38; Admin Dose 1 TAB; Start 03/30/17 at 06:00 Total Parenteral Nutrition (Tpn) 1,000 ml @ 70 mls/hr [id number] IV Last administered on 04/14/17 22:32; Admin Dose 70 MLS/HR; Start 03/31/17 at 15:00 Insulin Glargine (Lantus) 10 unit HS SC Last administered on 04/14/17 20:25; Admin Dose 10 UNIT; Start 04/01/17 at 21:00 Miscellaneous Information 1 ea NOTE XX ; Start 03/31/17 at 21:00 Glucose (Glutose) 15 gm Q15M PRN PO DECREASED GLUCOSE; Start 03/31/17 at 21:00 Glucose (Glutose) 22.5 gm Q15M PRN PO DECREASED GLUCOSE; Start 03/31/17 at 21: 00 Dextrose (D50w Syringe) 25 ml Q15M PRN IV DECREASED GLUCOSE; Start 03/31/17 at 21:00 Dextrose (D50w Syringe) 50 ml Q15M PRN IV DECREASED GLUCOSE; Start 03/31/17 at 21:00 Glucagon (Glucagen) 1 mg Q15M PRN IM DECREASED GLUCOSE; Start 03/31/17 at 21: 00 Glucose (Glutose) 15 gm Q15M PRN BUCCAL DECREASED GLUCOSE; Start 03/31/17 at 21:00 Diagnostic Test (Pha) (Accu-Chek) 1 ea 02 XX ; Start 04/06/17 at 02:00 Ascorbic Acid (Vitamin C) 500 mg DAILY PO Last administered on 04/15/17 09:04 ; Admin Dose 500 MG; Start 04/11/17 at 09:00 Zinc Sulfate (Zinc Sulfate) 220 mg DAILY PO Last administered on 04/15/17 09: 04; Admin Dose 220 MG; Start 04/11/17 at 09:00 Fentanyl (Duragesic 25 Mcg/Hr Patch) 1 patch Q3D TRANSDERM Last administered on 04/14/17 18:23; Admin Dose 1 PATCH; Start 04/11/17 at 17:00 Loperamide HCl (Imodium Cap) 2 mg TID PO ; Start 04/15/17 at 13:00 Assessment/Plan Chief Complaint/Hosp Course SUBJECTIVE: No acute changes. The patient is alert, looks comfortable, afebrile. MICROBIOLOGY: Urine culture on admission grew Escherichia coli extended- spectrum beta-lactamase and Enterococcus species===> s/p Merrem and Zyvox. PHYSICAL EXAMINATION: GENERAL: This is a cachectic, chronically ill-appearing, elderly man who is in no distress. HEENT: Head atraumatic, normocephalic. Sclerae anicteric. NECK: Supple. CHEST: Rise symmetrical. Breath sounds diminished to bases. HEART: S1, S2. ABDOMEN: Soft, bowel tones present. EXTREMITIES: Without cyanosis. ASSESSMENT: 1. S/p recurrent urinary tract infection. 2. History of bladder and prostate cancer, status post chemoradiation and cystoprostatectomy with urinary diversion and ileostomy conduit. 3. History of perforated viscus repair and multiple pelvic abscess pseudocyst drainages. 4. Acute kidney failure with a history of obstructive uropathy with bilateral JJ stent placement. 5. Cachexia. PLAN: The patient remains stable. Off abx. Continue present care, repeat cx prn. Follow recommendations of specialists. 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
[2017-04-15] MEDS: LOPERAMIDE 2 MG CAP PO SCH ×2 (13:42→21:22)
--- NOTE | 2017-04-15 13:45 | PN ---
Date/Time of Note Date/Time of Note DATE: 04/15/17 TIME: 13:43 Assessment/Plan VTE Prophylaxis VTE Prophylaxis Intervention: heparin Lines/Catheters IV Catheter Type (from [facility]): PICC Line Central line still needed: Yes Urinary Cath still in place: No Assessment/Plan Chief Complaint/Hosp Course Assessment and plan 1.urinary tract infection with polymicrobial including ESBL. ID consult is following. Status post antibiotics. Will follow. 2. Acute kidney injury. Nephrology following. Avoid nephrotoxic medications. Monitor renal panel. 3. History of bladder cancer. Patient is status post radical cystoprostatectomy and creation of ileal conduit with a colonic diversion for fistula formation. Monitor for now. Surgeon following. 4. Status post perforated viscus repair complicated by intra-abdominal abscess requiring CT-guided drainage on previous admission. Wound VAC removed. Continue with surgeon recommendations. 5. Severe protein calorie malnutrition. Continue TPN and soft diet. 6. anemia. Likely of chronic disease. Monitor H&H and transfuse blood products as needed. Disposition plan: Awaiting for snf facility placement. f/u AM labs Discussed plan of care with Dr. Tate Problems: Subjective 24 Hr Interval Summary Free Text/Dictation Comfortable at present. No specific complaints. Exam/Review of Systems Vital Signs Vitals Vital Signs Date Time Temp Pulse Resp B/P Pulse Ox O2 Delivery O2 Flow Rate FiO2 04/15/17 07:28 99.2 82 20 99/59 97 Intake and Output 04/14/17 04/14/17 04/15/17 15:00 23:00 07:00 Intake Total 950 ml 2200 ml 800 ml Output Total 1700 ml 1700 ml Balance 950 ml 500 ml -900 ml Exam Constitutional: alert, oriented Psych: nl mood/affect Head: normocephalic Eyes: nl conjunctiva Respiratory: clear to auscultation, normal air movement Cardiovascular: regular rate and rhythm Gastrointestinal: other Ileostomy bag in place), soft Musculoskeletal: nl extremities to inspection Neurological: RADIOLOGY CLERK II-XII intact, nl mental status, nl speech Skin: other Wound appears clean at present.) Results Result Diagram: 04/12/17 0435 04/14/17 0438 Results 24 hrs Laboratory Tests Test 04/14/17 17:36 04/14/17 20:20 04/15/17 09:18 04/15/17 12:45 Bedside Glucose 109 125 205 98 Medications Medications Current Medications Ondansetron HCl (Zofran Inj) 4 mg Q6H PRN IV NAUSEA AND/OR VOMITING Last administered on 04/14/17 20:46; Admin Dose 4 MG; Start 03/30/17 at 03:30 Heparin Sodium (Porcine) (Heparin (5000 Units/0.5 ml)) 5,000 unit DAILY SC Last administered on 04/15/17 09:09; Admin Dose 5,000 UNIT; Start 03/30/17 at 09:00 Oxycodone/ Acetaminophen 1 tab 1 tab Q4H PRN PO PAIN Last administered on 22:38; Admin Dose 1 TAB; Start 03/30/17 at 06:00 Total Parenteral Nutrition (Tpn) 1,000 ml @ 70 mls/hr [id number] IV Last administered on 04/14/17 22:32; Admin Dose 70 MLS/HR; Start 03/31/17 at 15:00 Insulin Glargine (Lantus) 10 unit HS SC Last administered on 04/14/17 20:25; Admin Dose 10 UNIT; Start 04/01/17 at 21:00 Miscellaneous Information 1 ea NOTE XX ; Start 03/31/17 at 21:00 Glucose (Glutose) 15 gm Q15M PRN PO DECREASED GLUCOSE; Start 03/31/17 at 21:00 Glucose (Glutose) 22.5 gm Q15M PRN PO DECREASED GLUCOSE; Start 03/31/17 at 21: 00 Dextrose (D50w Syringe) 25 ml Q15M PRN IV DECREASED GLUCOSE; Start 03/31/17 at 21:00 Dextrose (D50w Syringe) 50 ml Q15M PRN IV DECREASED GLUCOSE; Start 03/31/17 at 21:00 Glucagon (Glucagen) 1 mg Q15M PRN IM DECREASED GLUCOSE; Start 03/31/17 at 21: 00 Glucose (Glutose) 15 gm Q15M PRN BUCCAL DECREASED GLUCOSE; Start 03/31/17 at 21:00 Diagnostic Test (Pha) (Accu-Chek) 1 ea 02 XX ; Start 04/06/17 at 02:00 Ascorbic Acid (Vitamin C) 500 mg DAILY PO Last administered on 04/15/17 09:04 ; Admin Dose 500 MG; Start 04/11/17 at 09:00 Zinc Sulfate (Zinc Sulfate) 220 mg DAILY PO Last administered on 04/15/17 09: 04; Admin Dose 220 MG; Start 04/11/17 at 09:00 Fentanyl (Duragesic 25 Mcg/Hr Patch) 1 patch Q3D TRANSDERM Last administered on 04/14/17 18:23; Admin Dose 1 PATCH; Start 04/11/17 at 17:00 Loperamide HCl (Imodium Cap) 2 mg TID PO ; Start 04/15/17 at 13:00 ALLISON HAYWARD Apr 15, 2017 13:45
[2017-04-15] MEDS: TPN 1,000 ML IV SCH (14:44)
[2017-04-15] MEDS: OXYCODONE/ACETAMINOPHEN (5/325) TAB PO PRN (17:23)
[2017-04-15 18:33] VITALS: BP 85/57; PULSE 96; RESP 20
[2017-04-15 21:02] VITALS: BP 100/51; RESP 18
[2017-04-15] MEDS: INSULIN GLARGINE [LANtus] 3 ML PEN SC SCH (21:26)
[2017-04-16] MEDS: OXYCODONE/ACETAMINOPHEN (5/325) TAB PO PRN ×3 (01:19→20:32)
[2017-04-16 02:05] VITALS: BP 99/50; RESP 18
[2017-04-16] MEDS: TPN 1,000 ML IV SCH ×2 (05:21→21:04)
[2017-04-16 05:36] LABS: CALCIUM 9.7 mg/dl (8.4-10.2); CREATININE 2.03 mg/dl (0.61-1.24); MAGNESIUM 2.2 mg/dl (1.7-2.5); PHOSPHORUS 3.8 mg/dl (2.5-4.9); POTASSIUM 3.8 mmol/L (3.5-5.1)
[2017-04-16 06:22] LABS: PREALBUMIN 30.6 mg/dl (17.6-36.0)
[2017-04-16 07:43] VITALS: BP 114/59; RESP 19
[2017-04-16] MEDS: ASCORBIC ACID 500 MG TAB PO SCH (09:04)
[2017-04-16] MEDS: ZINC SULFATE 220 MG CAP PO SCH (09:04)
[2017-04-16] MEDS: LOPERAMIDE 2 MG CAP PO SCH ×3 (09:04→20:32)
[2017-04-16] MEDS: HEPARIN 5,000 UNIT/0.5 ML VIAL SC SCH (09:17)
[2017-04-16] MEDS: Insulin NOVOLOG SS MODERATE Algorithm (SS with meals and bedtime) SC SCH ×4 (09:17→21:00)
[2017-04-16 09:32] LABS: BASOPHILS % 0.3 % (0.0-2.0); EOSINOPHILS # 0.2 10^3/ul (0.0-0.5); EOSINOPHILS % 2.2 % (0.0-7.0); HEMATOCRIT 30.3 % (42.0-52.0); HEMOGLOBIN 9.9 g/dl (14.0-18.0); LYMPHOCYTES # 1.9 10^3/ul (0.8-2.9); LYMPHOCYTES % 26.2 % (15.0-51.0); MEAN CORPUSCULAR HEMOGLOBIN 28.5 pg (29.0-33.0); MEAN CORPUSCULAR HGB CONC 32.7 g/dl (32.0-37.0); MEAN CORPUSCULAR VOLUME 87.3 fl (82.0-101.0); MEAN PLATELET VOLUME 9.1 fl (7.4-10.4); MONOCYTE # 0.7 10^3/ul (0.3-0.9); MONOCYTES % 10.1 % (0.0-11.0); NEUTROPHIL # 4.3 10^3/ul (1.6-7.5); NEUTROPHILS % 60.9 % (39.0-77.0); PLATELET COUNT 304 10^3/UL (140-415); RED BLOOD COUNT 3.47 10^6/ul (4.70-6.10); RED CELL DISTRIBUTION WIDTH 15.1 % (11.5-14.5); WHITE BLOOD COUNT 7.1 10^3/ul (4.8-10.8)
--- NOTE | 2017-04-16 11:46 | PN ---
Date/Time of Note Date/Time of Note DATE: 04/16/17 TIME: 11:40 Assessment/Plan Lines/Catheters IV Catheter Type (from Nrs): PICC Line Tomas in Place (from Nrs): No Assessment/Plan Chief Complaint/Hosp Course 1. Multiple ostomies and ileal conduit: all ostomies pink and moist; s/p multiple Perforated viscous w small bowel proximal looped ostomy (minimum 6 month wait prior to considering attempting abdominal re-exploration); rectal discharge -continue ostomy care -continue oral feed and supplements; hopefully can wean off tpn for discharge to snf -continue local abdominal wound care-w vac -oral diet as tolerated with protein shakes and probiotics -oob/ambulate -urology consult 2. UTI (polymicrobial, complicated)pink with mucous urine -abx/antimicrobials per sensitivity -frequent bladder emptying/cath care -urology 3. Malnutrition: tolerating solid diet; spoke w sewer pipe press operator -continue tpn -vitamins, probiotics, and nutritional supplements -encourage supplements -calorie count; hopefully wean off tpn if able for dc to snf if unable to find snf that accepts tpn -started on antimotility agent and fish oil 4. MANA:cr worse today -judicious fluids -limit nephrotoxic meds -per renal 5. Bladder cancer: s/p chemo/radiation, s/p cystoprostatectomy with urinary diversion -per oncology/urology 6. Normocytic hypochromic anemia: no overt bleed noted -monitor -transfuse as needed -further workup per medical team 7. Pelvic pain:on fentanyl patch; still with pain; ? up titrate med -pain management Thank you. Patient seen and examined in collaboration with Dr. Bang Ross Problems: Subjective 24 Hr Interval Summary Continues to have pelvic pain and has nausea resulting from pelvic pain. + discharge per rectum, now creamy drainage with blood. No fevers, chills, sob, congested cough, cp, palpitations, craig, dizziness, n/v/d/dysuria. Exam/Review of Systems Vital Signs Vitals Vital Signs Date Time Temp Pulse Resp B/P Pulse Ox O2 Delivery O2 Flow Rate FiO2 04/16/17 07:43 98.2 81 19 114/59 99 04/15/17 18:33 Room Air Intake and Output 04/15/17 04/15/17 04/16/17 15:00 23:00 07:00 Intake Total 550 ml 1655 ml 1245 ml Output Total 2385 ml 2150 ml Balance 550 ml -730 ml -905 ml Exam Free Text/Dictation Constitutional: alert, frail, oriented Psych: nl mood/affect Head: atraumatic, normocephalic Eyes: nl lids, nl sclera ENMT: mucosa pink and moist, nl nasal mucosa & septum Neck: non-tender, supple Respiratory: normal air movement Cardiovascular: nl pulses, regular rate and rhythm Gastrointestinal: non-tender, other (ileostomy, colostomy, urostomy- output yellow cloudy-all ostomies pink and moist), soft, wound scan drainage, no erythema Genitourinary - Male: nl penis, nl scrotum; ileal conduit with mucous/sediment output Musculoskeletal: nl extremities to inspection, nl gait and stance Extremities: normal pulses, No edema Neurological: nl mental status, nl speech Skin: nl turgor, rash or lesions; lower abdomen wound; redness/irritation around ostomies Results Result Diagram: 04/16/17 0553 04/16/17 0430 IFTIKHAR ROBERTSON NP Apr 16, 2017 11:46
--- NOTE | 2017-04-16 12:41 | CONS ---
Date/Time of Note Date/Time of Note DATE: 04/16/17 TIME: 12:41 Assessment/Plan Assessment/Plan Chief Complaint/Hosp Course SUBJECTIVE: No acute changes. The patient is alert, feels good, no fevers MICROBIOLOGY: Urine culture on admission grew Escherichia coli extended- spectrum beta-lactamase and Enterococcus species===> s/p Merrem and Zyvox. PHYSICAL EXAMINATION: GENERAL: This is a cachectic, chronically ill-appearing, elderly man who is in no distress. HEENT: Head atraumatic, normocephalic. Sclerae anicteric. NECK: Supple. CHEST: Rise symmetrical. Breath sounds diminished to bases. HEART: S1, S2. ABDOMEN: Soft, bowel tones present. EXTREMITIES: Without cyanosis. ASSESSMENT: 1. S/p recurrent urinary tract infection. 2. History of bladder and prostate cancer, status post chemoradiation and cystoprostatectomy with urinary diversion and ileostomy conduit. 3. History of perforated viscus repair and multiple pelvic abscess pseudocyst drainages. 4. Acute kidney failure with a history of obstructive uropathy with bilateral JJ stent placement. 5. Cachexia. PLAN: The patient remains stable. Off abx. Continue present care, repeat cx prn. Follow recommendations of specialists. DW pt Problems: Consultation Date/Type/Reason Admit Date/Time Mar 30, 2017 at 02:24 Initial Consult Date 04/01/17 Type of Consultation: ID Referring Provider: ALLISON HAYWARD Exam/Review of Systems Vital Signs Vitals Vital Signs Date Time Temp Pulse Resp B/P Pulse Ox O2 Delivery O2 Flow Rate FiO2 04/16/17 07:43 98.2 81 19 114/59 99 04/15/17 18:33 Room Air Intake and Output 04/15/17 04/15/17 04/16/17 14:59 22:59 06:59 Intake Total 550 ml 1655 ml 1245 ml Output Total 2385 ml 2150 ml Balance 550 ml -730 ml -905 ml Results Result Diagram: 04/16/17 0553 04/16/17 0430 Results 24 hrs Laboratory Tests Test 04/15/17 12:45 04/15/17 18:03 04/15/17 20:35 04/16/17 04:30 Bedside Glucose 98 135 169 Sodium Level 138 Potassium Level 3.8 Chloride Level 96 L Carbon Dioxide Level 33 H Anion Gap 13 Blood Urea Nitrogen 69 H Creatinine 2.03 H Glucose Level 117 Calcium Level 9.7 Phosphorus Level 3.8 Magnesium Level 2.2 Prealbumin 30.6 Test 04/16/17 05:53 04/16/17 09:02 White Blood Count 7.1 Red Blood Count 3.47 L Hemoglobin 9.9 L Hematocrit 30.3 L Mean Corpuscular Volume 87.3 Mean Corpuscular Hemoglobin 28.5 L Mean Corpuscular Hemoglobin Concent 32.7 Red Cell Distribution Width 15.1 H Platelet Count 304 # Mean Platelet Volume 9.1 Neutrophils % 60.9 Lymphocytes % 26.2 Monocytes % 10.1 Eosinophils % 2.2 Basophils % 0.3 Nucleated Red Blood Cells % 0.0 Neutrophils # 4.3 Lymphocytes # 1.9 Monocytes # 0.7 Eosinophils # 0.2 Basophils # 0.0 Nucleated Red Blood Cells # 0.0 Bedside Glucose 151 Medications Medications Current Medications Ondansetron HCl (Zofran Inj) 4 mg Q6H PRN IV NAUSEA AND/OR VOMITING Last administered on 04/14/17 20:46; Admin Dose 4 MG; Start 03/30/17 at 03:30 Heparin Sodium (Porcine) (Heparin (5000 Units/0.5 ml)) 5,000 unit DAILY SC Last administered on 04/16/17 09:17; Admin Dose 5,000 UNIT; Start 03/30/17 at 09:00 Oxycodone/ Acetaminophen 1 tab 1 tab Q4H PRN PO PAIN Last administered on 04/16 11:43; Admin Dose 1 TAB; Start 03/30/17 at 06:00 Total Parenteral Nutrition (Tpn) 1,000 ml @ 70 mls/hr [id number] IV Last administered on 04/16/17 05:21; Admin Dose 70 MLS/HR; Start 03/31/17 at 15:00 Insulin Glargine (Lantus) 10 unit HS SC Last administered on 04/15/17 21:26; Admin Dose 10 UNIT; Start 04/01/17 at 21:00 Miscellaneous Information 1 ea NOTE XX ; Start 03/31/17 at 21:00 Glucose (Glutose) 15 gm Q15M PRN PO DECREASED GLUCOSE; Start 03/31/17 at 21:00 Glucose (Glutose) 22.5 gm Q15M PRN PO DECREASED GLUCOSE; Start 03/31/17 at 21: 00 Dextrose (D50w Syringe) 25 ml Q15M PRN IV DECREASED GLUCOSE; Start 03/31/17 at 21:00 Dextrose (D50w Syringe) 50 ml Q15M PRN IV DECREASED GLUCOSE; Start 03/31/17 at 21:00 Glucagon (Glucagen) 1 mg Q15M PRN IM DECREASED GLUCOSE; Start 03/31/17 at 21: 00 Glucose (Glutose) 15 gm Q15M PRN BUCCAL DECREASED GLUCOSE; Start 03/31/17 at 21:00 Diagnostic Test (Pha) (Accu-Chek) 1 ea 02 XX ; Start 04/06/17 at 02:00 Ascorbic Acid (Vitamin C) 500 mg DAILY PO Last administered on 04/16/17 09:04 ; Admin Dose 500 MG; Start 04/11/17 at 09:00 Zinc Sulfate (Zinc Sulfate) 220 mg DAILY PO Last administered on 04/16/17 09: 04; Admin Dose 220 MG; Start 04/11/17 at 09:00 Fentanyl (Duragesic 25 Mcg/Hr Patch) 1 patch Q3D TRANSDERM Last administered on 04/14/17 18:23; Admin Dose 1 PATCH; Start 04/11/17 at 17:00 Loperamide HCl (Imodium Cap) 2 mg TID PO Last administered on 04/16/17 09:04 ; Admin Dose 2 MG; Start 04/15/17 at 13:00 KING MARQUES NP Apr 16, 2017 12:41
--- NOTE | 2017-04-16 13:57 | PN ---
Date/Time of Note Date/Time of Note DATE: 04/16/17 TIME: 13:53 Assessment/Plan VTE Prophylaxis VTE Prophylaxis Intervention: SCD's Lines/Catheters IV Catheter Type (from Nrs): PICC Line Central line still needed: Yes (IV access) Urinary Cath still in place: No Assessment/Plan Chief Complaint/Hosp Course Subjective: Events noted Objective: Vital signs stable Physical exam No pallor Regular Clear Bowel sounds diminished mild tender nondistended no RG wound VAC in place Min edema Assessment and plan 1. Acute renal insufficiency. Stable watch for obstruction. 2. Lateral cancer status post TUR BT/chemo/radiation. 3. Colonic fistula/Perf viscus; TPN/ VAC. Recent cystoprostatectomy w urinary diversion, ileal conduit, colonic diversion for fistula. s/p repair and pelvic abscess drainage 4. Anemia likely of chronic disease 5. Ileostomy status 6. Malnutrition continue TPN 7. Urethral damage 8. Ftt, TPN/snf assistance needed 9. Possible cystitis vs colonization. Problems: Exam/Review of Systems Vital Signs Vitals Vital Signs Date Time Temp Pulse Resp B/P Pulse Ox O2 Delivery O2 Flow Rate FiO2 04/16/17 07:43 98.2 81 19 114/59 99 04/15/17 18:33 Room Air Intake and Output 04/15/17 04/15/17 04/16/17 14:59 22:59 06:59 Intake Total 550 ml 1655 ml 1245 ml Output Total 2385 ml 2150 ml Balance 550 ml -730 ml -905 ml Results Result Diagram: 04/16/17 0553 04/16/17 0430 Results 24 hrs Laboratory Tests Test 04/15/17 18:03 04/15/17 20:35 04/16/17 04:30 04/16/17 05:53 Bedside Glucose 135 169 Sodium Level 138 Potassium Level 3.8 Chloride Level 96 L Carbon Dioxide Level 33 H Anion Gap 13 Blood Urea Nitrogen 69 H Creatinine 2.03 H Glucose Level 117 Calcium Level 9.7 Phosphorus Level 3.8 Magnesium Level 2.2 Prealbumin 30.6 White Blood Count 7.1 Red Blood Count 3.47 L Hemoglobin 9.9 L Hematocrit 30.3 L Mean Corpuscular Volume 87.3 Mean Corpuscular Hemoglobin 28.5 L Mean Corpuscular Hemoglobin Concent 32.7 Red Cell Distribution Width 15.1 H Platelet Count 304 # Mean Platelet Volume 9.1 Neutrophils % 60.9 Lymphocytes % 26.2 Monocytes % 10.1 Eosinophils % 2.2 Basophils % 0.3 Nucleated Red Blood Cells % 0.0 Neutrophils # 4.3 Lymphocytes # 1.9 Monocytes # 0.7 Eosinophils # 0.2 Basophils # 0.0 Nucleated Red Blood Cells # 0.0 Test 04/16/17 09:02 04/16/17 12:56 Bedside Glucose 151 126 Medications Medications Current Medications Ondansetron HCl (Zofran Inj) 4 mg Q6H PRN IV NAUSEA AND/OR VOMITING Last administered on 04/14/17 20:46; Admin Dose 4 MG; Start 03/30/17 at 03:30 Heparin Sodium (Porcine) (Heparin (5000 Units/0.5 ml)) 5,000 unit DAILY SC Last administered on 04/16/17 09:17; Admin Dose 5,000 UNIT; Start 03/30/17 at 09:00 Oxycodone/ Acetaminophen 1 tab 1 tab Q4H PRN PO PAIN Last administered on 04/16 11:43; Admin Dose 1 TAB; Start 03/30/17 at 06:00 Total Parenteral Nutrition (Tpn) 1,000 ml @ 70 mls/hr [id number] IV Last administered on 04/16/17 05:21; Admin Dose 70 MLS/HR; Start 03/31/17 at 15:00 Insulin Glargine (Lantus) 10 unit HS SC Last administered on 04/15/17 21:26; Admin Dose 10 UNIT; Start 04/01/17 at 21:00 Miscellaneous Information 1 ea NOTE XX ; Start 03/31/17 at 21:00 Glucose (Glutose) 15 gm Q15M PRN PO DECREASED GLUCOSE; Start 03/31/17 at 21:00 Glucose (Glutose) 22.5 gm Q15M PRN PO DECREASED GLUCOSE; Start 03/31/17 at 21: 00 Dextrose (D50w Syringe) 25 ml Q15M PRN IV DECREASED GLUCOSE; Start 03/31/17 at 21:00 Dextrose (D50w Syringe) 50 ml Q15M PRN IV DECREASED GLUCOSE; Start 03/31/17 at 21:00 Glucagon (Glucagen) 1 mg Q15M PRN IM DECREASED GLUCOSE; Start 03/31/17 at 21: 00 Glucose (Glutose) 15 gm Q15M PRN BUCCAL DECREASED GLUCOSE; Start 03/31/17 at 21:00 Diagnostic Test (Pha) (Accu-Chek) 1 ea 02 XX ; Start 04/06/17 at 02:00 Ascorbic Acid (Vitamin C) 500 mg DAILY PO Last administered on 04/16/17 09:04 ; Admin Dose 500 MG; Start 04/11/17 at 09:00 Zinc Sulfate (Zinc Sulfate) 220 mg DAILY PO Last administered on 04/16/17 09: 04; Admin Dose 220 MG; Start 04/11/17 at 09:00 Fentanyl (Duragesic 25 Mcg/Hr Patch) 1 patch Q3D TRANSDERM Last administered on 04/14/17 18:23; Admin Dose 1 PATCH; Start 04/11/17 at 17:00 Loperamide HCl (Imodium Cap) 2 mg TID PO Last administered on 04/16/17 13:13 ; Admin Dose 2 MG; Start 04/15/17 at 13:00 GREGORIO HOPPER MD Apr 16, 2017 13:57
--- NOTE | 2017-04-16 17:17 | CONS ---
Date/Time of Note Date/Time of Note DATE: 04/16/17 TIME: 17:15 Assessment/Plan Assessment/Plan Additional Assessment/Plan 1. acute kidney injury Non oliguric 2. H/o ESBL UTI 3.history of bladder cancer s/p TURBT, chemotherapy/radiation, urethral damage, chemo/radiation induced urinary and fecal incontinence. He underwent cystoprostatectomy with urinary diversion, ileal conduit, colonic diversion for fistula on last admission Plan: Off abx now on TPN at 70 cc/hr - cr bumped to 2.03- will give NS at 2 liter then stop will continue to follow up Consultation Date/Type/Reason Admit Date/Time Mar 30, 2017 at 02:24 Initial Consult Date 03/30/17 Type of Consultation: NEPHROLOGY Referring Provider: ALLISON HAYWARD 24 HR Interval Summary Free Text/Dictation Cr bumped to 2.03 today Exam/Review of Systems Vital Signs Vitals Vital Signs Date Time Temp Pulse Resp B/P Pulse Ox O2 Delivery O2 Flow Rate FiO2 04/16/17 07:43 98.2 81 19 114/59 99 04/15/17 18:33 Room Air Intake and Output 04/15/17 04/15/17 04/16/17 15:00 23:00 07:00 Intake Total 550 ml 1655 ml 1245 ml Output Total 2385 ml 2150 ml Balance 550 ml -730 ml -905 ml Exam Constitutional: other (Patient appears weak. No acute distress. He is cachectic) Head: atraumatic, normocephalic Eyes: EOMI, PERRL Respiratory: clear to auscultation, normal air movement Cardiovascular: nl pulses, regular rate and rhythm Gastrointestinal: other (Scaphoid abdomen. Urostomy, colostomy and ileal conduit) Extremities: normal pulses + PICC line in place , on TPN Results Result Diagram: 04/16/17 0553 04/16/17 0430 Results 24 hrs Laboratory Tests Test 04/15/17 18:03 04/15/17 20:35 04/16/17 04:30 04/16/17 05:53 Bedside Glucose 135 169 Sodium Level 138 Potassium Level 3.8 Chloride Level 96 L Carbon Dioxide Level 33 H Anion Gap 13 Blood Urea Nitrogen 69 H Creatinine 2.03 H Glucose Level 117 Calcium Level 9.7 Phosphorus Level 3.8 Magnesium Level 2.2 Prealbumin 30.6 White Blood Count 7.1 Red Blood Count 3.47 L Hemoglobin 9.9 L Hematocrit 30.3 L Mean Corpuscular Volume 87.3 Mean Corpuscular Hemoglobin 28.5 L Mean Corpuscular Hemoglobin Concent 32.7 Red Cell Distribution Width 15.1 H Platelet Count 304 # Mean Platelet Volume 9.1 Neutrophils % 60.9 Lymphocytes % 26.2 Monocytes % 10.1 Eosinophils % 2.2 Basophils % 0.3 Nucleated Red Blood Cells % 0.0 Neutrophils # 4.3 Lymphocytes # 1.9 Monocytes # 0.7 Eosinophils # 0.2 Basophils # 0.0 Nucleated Red Blood Cells # 0.0 Test 04/16/17 09:02 04/16/17 12:56 Bedside Glucose 151 126 Medications Medications Current Medications Ondansetron HCl (Zofran Inj) 4 mg Q6H PRN IV NAUSEA AND/OR VOMITING Last administered on 04/14/17 20:46; Admin Dose 4 MG; Start 03/30/17 at 03:30 Heparin Sodium (Porcine) (Heparin (5000 Units/0.5 ml)) 5,000 unit DAILY SC Last administered on 04/16/17 09:17; Admin Dose 5,000 UNIT; Start 03/30/17 at 09:00 Oxycodone/ Acetaminophen 1 tab 1 tab Q4H PRN PO PAIN Last administered on 04/16 11:43; Admin Dose 1 TAB; Start 03/30/17 at 06:00 Total Parenteral Nutrition (Tpn) 1,000 ml @ 70 mls/hr [id number] IV Last administered on 04/16/17 05:21; Admin Dose 70 MLS/HR; Start 03/31/17 at 15:00 Insulin Glargine (Lantus) 10 unit HS SC Last administered on 04/15/17 21:26; Admin Dose 10 UNIT; Start 04/01/17 at 21:00 Miscellaneous Information 1 ea NOTE XX ; Start 03/31/17 at 21:00 Glucose (Glutose) 15 gm Q15M PRN PO DECREASED GLUCOSE; Start 03/31/17 at 21:00 Glucose (Glutose) 22.5 gm Q15M PRN PO DECREASED GLUCOSE; Start 03/31/17 at 21: 00 Dextrose (D50w Syringe) 25 ml Q15M PRN IV DECREASED GLUCOSE; Start 03/31/17 at 21:00 Dextrose (D50w Syringe) 50 ml Q15M PRN IV DECREASED GLUCOSE; Start 03/31/17 at 21:00 Glucagon (Glucagen) 1 mg Q15M PRN IM DECREASED GLUCOSE; Start 03/31/17 at 21: 00 Glucose (Glutose) 15 gm Q15M PRN BUCCAL DECREASED GLUCOSE; Start 03/31/17 at 21:00 Diagnostic Test (Pha) (Accu-Chek) 1 ea 02 XX ; Start 04/06/17 at 02:00 Ascorbic Acid (Vitamin C) 500 mg DAILY PO Last administered on 04/16/17 09:04 ; Admin Dose 500 MG; Start 04/11/17 at 09:00 Zinc Sulfate (Zinc Sulfate) 220 mg DAILY PO Last administered on 04/16/17 09: 04; Admin Dose 220 MG; Start 04/11/17 at 09:00 Fentanyl (Duragesic 25 Mcg/Hr Patch) 1 patch Q3D TRANSDERM Last administered on 04/14/17 18:23; Admin Dose 1 PATCH; Start 04/11/17 at 17:00 Loperamide HCl (Imodium Cap) 2 mg TID PO Last administered on 04/16/17 13:13 ; Admin Dose 2 MG; Start 04/15/17 at 13:00 Nystatin (Nystatin Powder) 1 applic PRN TOP ; Start 04/16/17 at 16:30; Status MARGOT ROTHMAN MD Apr 16, 2017 17:17
[2017-04-16] MEDS: SOD CHLORIDE 0.9% 1,000 ML IV SCH (17:59)
[2017-04-16] MEDS: ONDANSETRON 4 MG INJ IV PRN (17:59)
[2017-04-16 19:20] VITALS: BP 96/59; RESP 18
[2017-04-16] MEDS: INSULIN GLARGINE [LANtus] 3 ML PEN SC SCH (20:39)
[2017-04-16] MEDS: ACCUCHECK AT 2AM (Patients on SS coverage) XX SCH (21:21)
[2017-04-17 02:00] VITALS: BP 106/59; RESP 18
[2017-04-17] MEDS: OXYCODONE/ACETAMINOPHEN (5/325) TAB PO PRN ×3 (05:05→17:34)
[2017-04-17 06:35] LABS: CALCIUM 8.9 mg/dl (8.4-10.2); MAGNESIUM 2.2 mg/dl (1.7-2.5)
[2017-04-17] MEDS: Insulin NOVOLOG SS MODERATE Algorithm (SS with meals and bedtime) SC SCH ×4 (07:50→21:00)
[2017-04-17 08:00] VITALS: BP 94/54; RESP 18
[2017-04-17] MEDS: SOD CHLORIDE 0.9% 1,000 ML IV SCH (08:43)
[2017-04-17] MEDS: ZINC SULFATE 220 MG CAP PO SCH (08:44)
[2017-04-17] MEDS: ASCORBIC ACID 500 MG TAB PO SCH (08:44)
[2017-04-17] MEDS: LOPERAMIDE 2 MG CAP PO SCH ×3 (08:44→21:27)
[2017-04-17] MEDS: HEPARIN 5,000 UNIT/0.5 ML VIAL SC SCH (08:48)
[2017-04-17] MEDS: TPN 1,000 ML IV SCH (10:53)
[2017-04-17 14:00] VITALS: BP 97/53; RESP 18
--- NOTE | 2017-04-17 14:39 | PN ---
Date/Time of Note Date/Time of Note DATE: 04/17/17 TIME: 14:38 Assessment/Plan Lines/Catheters IV Catheter Type (from Nrs): PICC Line Tomas in Place (from Nrs): No Assessment/Plan Chief Complaint/Hosp Course 1. Multiple ostomies and ileal conduit: all ostomies pink and moist; s/p multiple Perforated viscous w small bowel proximal looped ostomy (minimum 6 month wait prior to considering attempting abdominal re-exploration); rectal discharge -continue ostomy care -continue oral feed and supplements; hopefully can wean off tpn for discharge to snf -continue local abdominal wound care-w vac -oral diet as tolerated with protein shakes and probiotics -oob/ambulate -urology consult 2. UTI (polymicrobial, complicated)pink with mucous urine -abx/antimicrobials per sensitivity -frequent bladder emptying/cath care -urology 3. Malnutrition: tolerating solid diet; spoke w radio time buyer -continue tpn -vitamins, probiotics, and nutritional supplements -encourage supplements -calorie count; hopefully wean off tpn if able for dc to snf if unable to find snf that accepts tpn -started on antimotility agent and fish oil 4. MANA:cr worse today -judicious fluids -limit nephrotoxic meds -per renal 5. Bladder cancer: s/p chemo/radiation, s/p cystoprostatectomy with urinary diversion -per oncology/urology 6. Normocytic hypochromic anemia: no overt bleed noted -monitor -transfuse as needed -further workup per medical team 7. Pelvic pain:on fentanyl patch; still with pain; ? up titrate med -pain management Thank you, Problems: Subjective 24 Hr Interval Summary Continues to have pelvic pain and has nausea resulting from pelvic pain. + discharge per rectum, now creamy drainage with blood. No fevers, chills, sob, congested cough, cp, palpitations, craig, dizziness, n/v/d/dysuria. Exam/Review of Systems Vital Signs Vitals Vital Signs Date Time Temp Pulse Resp B/P Pulse Ox O2 Delivery O2 Flow Rate FiO2 04/17/17 14:00 99.2 89 18 97/53 100 04/15/17 18:33 Room Air Intake and Output 04/16/17 04/16/17 04/17/17 15:00 23:00 07:00 Intake Total 1760 ml 1960 ml Output Total 2200 ml 1950 ml Balance -440 ml 10 ml Exam Free Text/Dictation Constitutional: alert, frail, oriented Psych: nl mood/affect Head: atraumatic, normocephalic Eyes: nl lids, nl sclera ENMT: mucosa pink and moist, nl nasal mucosa & septum Neck: non-tender, supple Respiratory: normal air movement Cardiovascular: nl pulses, regular rate and rhythm Gastrointestinal: non-tender, other (ileostomy, colostomy, urostomy- output yellow cloudy-all ostomies pink and moist), soft, wound scan drainage, no erythema Genitourinary - Male: nl penis, nl scrotum; ileal conduit with mucous/sediment output Musculoskeletal: nl extremities to inspection, nl gait and stance Extremities: normal pulses, No edema Neurological: nl mental status, nl speech Skin: nl turgor, rash or lesions; lower abdomen wound; redness/irritation around ostomies Results Result Diagram: 04/16/17 0553 04/17/17 0458 OPAL CRUZ MD Apr 17, 2017 14:39
--- NOTE | 2017-04-17 15:49 | PN ---
Date/Time of Note Date/Time of Note DATE: 04/17/17 TIME: 15:46 Assessment/Plan VTE Prophylaxis VTE Prophylaxis Intervention: heparin Lines/Catheters IV [facility]ter Type (from [facility]): PICC Line Central line still needed: Yes Urinary Cath still in place: No Assessment/Plan Chief Complaint/Hosp Course 1. Complicated urinary tract infection with polymicrobial's including E. coli ESBL. Status post antimicrobials as per infectious diseases. 2. Acute nonoliguric kidney injury. Etiology unclear. The patient being followed by nephrology. Use nephrotoxic drugs with caution. 3. Bladder cancer. Status post radical cystoprostatectomy and creation of ileal conduit with colonic diversion for fistula formation. 4. Status post perforated viscus repair complicated by intra-abdominal abscess requiring CT-guided drainage on previous admission. The patient has an abdominal wound vac in place. Being followed by surgery. 5. Severe protein calorie malnutrition. Patient on TPN. The patient on a mechanical soft diet. 6. Normocytic anemia. Etiology unclear. Probably anemia of chronic disease. 7. Fluids, electrolytes, and nutrition. TPN. Mechanical soft diet. 8. DVT prophylaxis. Subcutaneous heparin. 9. Plan. Antimicrobials has been discontinued. DC Planning to SNF. Case discussed with Dr. Tate. Problems: Subjective 24 Hr Interval Summary Free Text/Dictation Remains afebrile. Exam/Review of Systems Vital Signs Vitals Vital Signs Date Time Temp Pulse Resp B/P Pulse Ox O2 Delivery O2 Flow Rate FiO2 04/17/17 14:00 99.2 89 18 97/53 100 04/15/17 18:33 Room Air Intake and Output 04/16/17 04/16/17 04/17/17 15:00 23:00 07:00 Intake Total 1760 ml 1960 ml Output Total 2200 ml 1950 ml Balance -440 ml 10 ml Exam General:, Thin, frail looking 66 year-old male lying in bed in no apparent distress. HEENT: Normocephalic, atraumatic. Eyes: Anicteric sclerae, conjunctivae clear. ENT: Nasal septum midline, oral mucosa moist. Neck supple, no JVD noticed. Respiratory: Bilaterally diminished breath sounds. No use of accessory muscles of respiration. No adventitious breath sounds. Cardiovascular: S1, S2 heard. No murmurs or gallops. Abdomen: Soft, nontender, and nondistended. Abdominal wall wound Vac. Ileostomy draining light brown liquid output (less amount). Colostomy pink bud moist. Ileal conduit. Genitourinary: Deferred. Extremities: No cyanosis, no clubbing, no edema. Peripheral pulses palpable. Neurologic: Cranial nerves II through XII grossly intact. The patient is awake, alert, and oriented. Skin: Normal skin turgor. No skin rashes. Results Result Diagram: 04/16/17 0553 04/17/17 0458 Results 24 hrs Laboratory Tests Test 04/16/17 17:54 04/16/17 20:37 04/17/17 04:58 04/17/17 08:46 Bedside Glucose 122 118 117 Sodium Level 138 Potassium Level 4.0 Chloride Level 98 Carbon Dioxide Level 30 Anion Gap 14 Blood Urea Nitrogen 65 H Creatinine 2.00 H Glucose Level 107 Calcium Level 8.9 Phosphorus Level 4.0 Magnesium Level 2.2 Test 04/17/17 12:51 Bedside Glucose 115 Medications Medications Current Medications Ondansetron HCl (Zofran Inj) 4 mg Q6H PRN IV NAUSEA AND/OR VOMITING Last administered on 04/16/17 17:59; Admin Dose 4 MG; Start 03/30/17 at 03:30 Heparin Sodium (Porcine) (Heparin (5000 Units/0.5 ml)) 5,000 unit DAILY SC Last administered on 04/17/17 08:48; Admin Dose 5,000 UNIT; Start 03/30/17 at 09:00 Oxycodone/ Acetaminophen 1 tab 1 tab Q4H PRN PO PAIN Last administered on 04/17 08:54; Admin Dose 1 TAB; Start 03/30/17 at 06:00 Total Parenteral Nutrition (Tpn) 1,000 ml @ 70 mls/hr [id number] IV Last administered on 04/17/17 10:53; Admin Dose 70 MLS/HR; Start 03/31/17 at 15:00 Insulin Glargine (Lantus) 10 unit HS SC Last administered on 04/16/17 20:39; Admin Dose 10 UNIT; Start 04/01/17 at 21:00 Miscellaneous Information 1 ea NOTE XX ; Start 03/31/17 at 21:00 Glucose (Glutose) 15 gm Q15M PRN PO DECREASED GLUCOSE; Start 03/31/17 at 21:00 Glucose (Glutose) 22.5 gm Q15M PRN PO DECREASED GLUCOSE; Start 03/31/17 at 21: 00 Dextrose (D50w Syringe) 25 ml Q15M PRN IV DECREASED GLUCOSE; Start 03/31/17 at 21:00 Dextrose (D50w Syringe) 50 ml Q15M PRN IV DECREASED GLUCOSE; Start 03/31/17 at 21:00 Glucagon (Glucagen) 1 mg Q15M PRN IM DECREASED GLUCOSE; Start 03/31/17 at 21: 00 Glucose (Glutose) 15 gm Q15M PRN BUCCAL DECREASED GLUCOSE; Start 03/31/17 at 21:00 Diagnostic Test (Pha) (Accu-Chek) 1 ea 02 XX ; Start 04/06/17 at 02:00 Ascorbic Acid (Vitamin C) 500 mg DAILY PO Last administered on 04/17/17 08:44 ; Admin Dose 500 MG; Start 04/11/17 at 09:00 Zinc Sulfate (Zinc Sulfate) 220 mg DAILY PO Last administered on 04/17/17 08: 44; Admin Dose 220 MG; Start 04/11/17 at 09:00 Fentanyl (Duragesic 25 Mcg/Hr Patch) 1 patch Q3D TRANSDERM Last administered on 04/14/17 18:23; Admin Dose 1 PATCH; Start 04/11/17 at 17:00 Loperamide HCl (Imodium Cap) 2 mg TID PO Last administered on 04/17/17 12:52 ; Admin Dose 2 MG; Start 04/15/17 at 13:00 Nystatin 1 applic 1 applic PRN TOP ; Start 04/16/17 at 16:30 Sodium Chloride (NS) 1,000 ml @ 70 mls/hr [id number] IV Last administered on 08:43; Admin Dose 70 MLS/HR; Start 04/16/17 at 17:30; Stop 04/17/17 at 22:04 BRENDA PETTIT NP Apr 17, 2017 15:49
--- NOTE | 2017-04-17 15:53 | CONS ---
Date/Time of Note Date/Time of Note DATE: 04/17/17 TIME: 15:52 Assessment/Plan Assessment/Plan Additional Assessment/Plan 1. Acute kidney injury- Non oliguric .UO 4.1L/24 Hrs 2. H/o ESBL UTI 3. Hx of bladder cancer s/p TURBT, chemotherapy/radiation, urethral damage, chemo/radiation induced urinary and fecal incontinence. He underwent cystoprostatectomy with urinary diversion, ileal conduit, colonic diversion for fistula on last admission Plan: Off abx now on TPN at 70 cc/hr - cr down to 2.0- getting NS at 2 liter x1. 2ND BAG IS INFUSING will continue to follow up Dw Dr Dion Miranda/staff Consultation Date/Type/Reason Admit Date/Time Mar 30, 2017 at 02:24 Initial Consult Date 04/01/17 Type of Consultation: NEPHROLOGY Referring Provider: ALLISON HAYWARD 24 HR Interval Summary Free Text/Dictation remanis afebrile -good UO -Cr down to 2.0 today dw staff- no new issues reported. Constitutional: requiring IVF, requiring O2 Exam/Review of Systems Vital Signs Vitals Vital Signs Date Time Temp Pulse Resp B/P Pulse Ox O2 Delivery O2 Flow Rate FiO2 04/17/17 14:00 99.2 89 18 97/53 100 04/15/17 18:33 Room Air Intake and Output 04/16/17 04/16/17 04/17/17 14:59 22:59 06:59 Intake Total 1760 ml 1960 ml Output Total 2200 ml 1950 ml Balance -440 ml 10 ml Exam Constitutional: alert, frail, oriented Psych: nl mood/affect Respiratory: diminished breath sounds (bilaterally) Cardiovascular: nl pulses, other (s1s2) Gastrointestinal: non-tender, soft Musculoskeletal: nl extremities to inspection Extremities: normal pulses Neurological: nl mental status, nl speech Results Result Diagram: 04/16/17 0553 04/17/17 0458 Results 24 hrs Laboratory Tests Test 04/16/17 17:54 04/16/17 20:37 04/17/17 04:58 04/17/17 08:46 Bedside Glucose 122 118 117 Sodium Level 138 Potassium Level 4.0 Chloride Level 98 Carbon Dioxide Level 30 Anion Gap 14 Blood Urea Nitrogen 65 H Creatinine 2.00 H Glucose Level 107 Calcium Level 8.9 Phosphorus Level 4.0 Magnesium Level 2.2 Test 04/17/17 12:51 Bedside Glucose 115 Medications Medications Current Medications Ondansetron HCl (Zofran Inj) 4 mg Q6H PRN IV NAUSEA AND/OR VOMITING Last administered on 04/16/17 17:59; Admin Dose 4 MG; Start 03/30/17 at 03:30 Heparin Sodium (Porcine) (Heparin (5000 Units/0.5 ml)) 5,000 unit DAILY SC Last administered on 04/17/17 08:48; Admin Dose 5,000 UNIT; Start 03/30/17 at 09:00 Oxycodone/ Acetaminophen 1 tab 1 tab Q4H PRN PO PAIN Last administered on 04/17 08:54; Admin Dose 1 TAB; Start 03/30/17 at 06:00 Total Parenteral Nutrition (Tpn) 1,000 ml @ 70 mls/hr [id number] IV Last administered on 04/17/17 10:53; Admin Dose 70 MLS/HR; Start 03/31/17 at 15:00 Insulin Glargine (Lantus) 10 unit HS SC Last administered on 04/16/17 20:39; Admin Dose 10 UNIT; Start 04/01/17 at 21:00 Miscellaneous Information 1 ea NOTE XX ; Start 03/31/17 at 21:00 Glucose (Glutose) 15 gm Q15M PRN PO DECREASED GLUCOSE; Start 03/31/17 at 21:00 Glucose (Glutose) 22.5 gm Q15M PRN PO DECREASED GLUCOSE; Start 03/31/17 at 21: 00 Dextrose (D50w Syringe) 25 ml Q15M PRN IV DECREASED GLUCOSE; Start 03/31/17 at 21:00 Dextrose (D50w Syringe) 50 ml Q15M PRN IV DECREASED GLUCOSE; Start 03/31/17 at 21:00 Glucagon (Glucagen) 1 mg Q15M PRN IM DECREASED GLUCOSE; Start 03/31/17 at 21: 00 Glucose (Glutose) 15 gm Q15M PRN BUCCAL DECREASED GLUCOSE; Start 03/31/17 at 21:00 Diagnostic Test (Pha) (Accu-Chek) 1 ea 02 XX ; Start 04/06/17 at 02:00 Ascorbic Acid (Vitamin C) 500 mg DAILY PO Last administered on 04/17/17 08:44 ; Admin Dose 500 MG; Start 04/11/17 at 09:00 Zinc Sulfate (Zinc Sulfate) 220 mg DAILY PO Last administered on 04/17/17 08: 44; Admin Dose 220 MG; Start 04/11/17 at 09:00 Fentanyl (Duragesic 25 Mcg/Hr Patch) 1 patch Q3D TRANSDERM Last administered on 04/14/17 18:23; Admin Dose 1 PATCH; Start 04/11/17 at 17:00 Loperamide HCl (Imodium Cap) 2 mg TID PO Last administered on 04/17/17 12:52 ; Admin Dose 2 MG; Start 04/15/17 at 13:00 Nystatin 1 applic 1 applic PRN TOP ; Start 04/16/17 at 16:30 Sodium Chloride (NS) 1,000 ml @ 70 mls/hr [id number] IV Last administered on 08:43; Admin Dose 70 MLS/HR; Start 04/16/17 at 17:30; Stop 04/17/17 at 22:04 MARSHAL SLATER Apr 17, 2017 15:53
[2017-04-17] MEDS: ONDANSETRON 4 MG INJ IV PRN (17:46)
[2017-04-17 19:20] VITALS: BP 82/53; RESP 16
[2017-04-17] MEDS: INSULIN GLARGINE [LANtus] 3 ML PEN SC SCH (21:32)
[2017-04-18 01:28] VITALS: BP 97/53; RESP 18
[2017-04-18] MEDS: TPN 1,000 ML IV SCH ×2 (01:33→15:54)
[2017-04-18] MEDS: ACCUCHECK AT 2AM (Patients on SS coverage) XX SCH (02:00)
[2017-04-18 05:11] LABS: BASOPHILS % 0.3 % (0.0-2.0); EOSINOPHILS # 0.1 10^3/ul (0.0-0.5); EOSINOPHILS % 1.3 % (0.0-7.0); HEMATOCRIT 26.3 % (42.0-52.0); HEMOGLOBIN 8.3 g/dl (14.0-18.0); LYMPHOCYTES # 1.9 10^3/ul (0.8-2.9); LYMPHOCYTES % 27.4 % (15.0-51.0); MEAN CORPUSCULAR HEMOGLOBIN 27.9 pg (29.0-33.0); MEAN CORPUSCULAR HGB CONC 31.6 g/dl (32.0-37.0); MEAN CORPUSCULAR VOLUME 88.6 fl (82.0-101.0); MEAN PLATELET VOLUME 9.1 fl (7.4-10.4); MONOCYTE # 0.7 10^3/ul (0.3-0.9); MONOCYTES % 10.3 % (0.0-11.0); NEUTROPHIL # 4.2 10^3/ul (1.6-7.5); NEUTROPHILS % 60.4 % (39.0-77.0); POSITIVE DIFF @See below; RED BLOOD COUNT 2.97 10^6/ul (4.70-6.10); RED CELL DISTRIBUTION WIDTH 14.9 % (11.5-14.5); WHITE BLOOD COUNT 6.9 10^3/ul (4.8-10.8)
[2017-04-18 05:19] LABS: PLATELET COUNT 233 10^3/UL (140-415)
[2017-04-18 05:46] LABS: CALCIUM 8.8 mg/dl (8.4-10.2); CREATININE 1.76 mg/dl (0.61-1.24); POTASSIUM 4.6 mmol/L (3.5-5.1)
[2017-04-18 06:12] LABS: MAGNESIUM 2.1 mg/dl (1.7-2.5); PHOSPHORUS 3.6 mg/dl (2.5-4.9)
[2017-04-18 07:44] VITALS: BP 84/48; RESP 16
[2017-04-18] MEDS: Insulin NOVOLOG SS MODERATE Algorithm (SS with meals and bedtime) SC SCH ×4 (07:50→20:52)
[2017-04-18 08:02] LABS: ANISOCYTOSIS 1+ (0-0); EOSINOPHILS % (M) 1 % (0-7); ERYTHROBLAST% (NRBC) (M) 1 % (0-0); MICROCYTOSIS 1+ (0-0); MONOCYTES % (M) 9 % (0-11); PLATELET ESTIMATE NORMAL; POLYCHROMASIA 3+ (0-0)
[2017-04-18] MEDS: ASCORBIC ACID 500 MG TAB PO SCH (08:51)
[2017-04-18] MEDS: ZINC SULFATE 220 MG CAP PO SCH (08:51)
[2017-04-18] MEDS: LOPERAMIDE 2 MG CAP PO SCH ×3 (08:51→20:53)
[2017-04-18] MEDS: HEPARIN 5,000 UNIT/0.5 ML VIAL SC SCH (08:59)
--- NOTE | 2017-04-18 10:14 | PN ---
Date/Time of Note Date/Time of Note DATE: 04/18/17 TIME: 10:10 Assessment/Plan VTE Prophylaxis VTE Prophylaxis Intervention: SCD's Lines/Catheters IV [facility]ter [facility] (from [facility]): PICC Line Central line still needed: Yes Urinary Cath still in place: No Assessment/Plan Chief Complaint/Hosp Course Assessment and plan 1.urinary tract infection with polymicrobial including ESBL. ID consult is following. Status post antibiotics. Will follow. stable at present 2. Acute kidney injury. Nephrology following. Avoid nephrotoxic medications. Monitor renal panel. stable 3. History of bladder cancer. Patient is status post radical cystoprostatectomy and creation of ileal conduit with a colonic diversion for fistula formation. Monitor for now. Surgeon following. 4. Status post perforated viscus repair complicated by intra-abdominal abscess requiring CT-guided drainage on previous admission. Wound VAC removed. Continue with surgeon recommendations. 5. Severe protein calorie malnutrition. Continue TPN and soft diet. 6. anemia. Likely of chronic disease. Monitor H&H and transfuse blood products as needed. Disposition plan: still awaiting placement. check AM labs. continue supportive care Discussed plan of care with Dr. Tate Problems: Subjective 24 Hr Interval Summary Free Text/Dictation no s/s of distress. Exam/Review of Systems Vital Signs Vitals Vital Signs Date Time Temp Pulse Resp B/P Pulse Ox O2 Delivery O2 Flow Rate FiO2 04/18/17 07:44 98.8 71 16 84/48 100 04/15/17 18:33 Room Air Intake and Output 04/17/17 04/17/17 04/18/17 14:59 22:59 06:59 Intake Total 590 ml 1780 ml 800 ml Output Total 2450 ml 900 ml Balance 590 ml -670 ml -100 ml Exam Constitutional: alert, oriented. 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, nl mental status, nl speech Skin: other Wound appears clean at present.) Results Result Diagram: 04/18/17 0442 04/18/17 0442 Results 24 hrs Laboratory Tests Test 04/17/17 12:51 04/17/17 17:36 04/17/17 21:30 04/18/17 04:27 Bedside Glucose 115 132 170 Phosphorus Level 3.6 Magnesium Level 2.1 Test 04/18/17 04:42 04/18/17 08:52 White Blood Count 6.9 Red Blood Count 2.97 L Hemoglobin 8.3 L Hematocrit 26.3 L Mean Corpuscular Volume 88.6 Mean Corpuscular Hemoglobin 27.9 L Mean Corpuscular Hemoglobin Concent 31.6 L Red Cell Distribution Width 14.9 H Platelet Count 233 # Mean Platelet Volume 9.1 Neutrophils % 60.4 Segmented Neutrophils % (Manual) 64 Band Neutrophils % (Manual) 1 Lymphocytes % 27.4 Lymphocytes % (Manual) 25 Monocytes % 10.3 Monocytes % (Manual) 9 Eosinophils % 1.3 Eosinophils % (Manual) 1 Basophils % 0.3 Nucleated Red Blood Cells % 1 H Neutrophils # 4.2 Neutrophils # (Manual) 4.4 Band Neutrophils # 0.0 Absolute Lymphocytes (Manual) 1.7 Lymphocytes # 1.9 Monocytes # 0.7 Absolute Monocytes (Manual) 0.6 Eosinophils # 0.1 Basophils # 0.0 Nucleated Red Blood Cells # 0.0 Platelet Estimate NORMAL Polychromasia 3+ Anisocytosis 1+ Microcytosis 1+ Sodium Level 139 Potassium Level 4.6 Chloride Level 105 Carbon Dioxide Level 23 Anion Gap 16 Blood Urea Nitrogen 59 H Creatinine 1.76 H Glucose Level 110 Calcium Level 8.8 Bedside Glucose 122 Medications Medications Current Medications Ondansetron HCl (Zofran Inj) 4 mg Q6H PRN IV NAUSEA AND/OR VOMITING Last administered on 04/17/17 17:46; Admin Dose 4 MG; Start 03/30/17 at 03:30 Heparin Sodium (Porcine) (Heparin (5000 Units/0.5 ml)) 5,000 unit DAILY SC Last administered on 04/18/17 08:59; Admin Dose 5,000 UNIT; Start 03/30/17 at 09:00 Oxycodone/ Acetaminophen 1 tab 1 tab Q4H PRN PO PAIN Last administered on 04/17 17:34; Admin Dose 1 TAB; Start 03/30/17 at 06:00 Total Parenteral Nutrition (Tpn) 1,000 ml @ 70 mls/hr [id number] IV Last administered on 04/18/17 01:33; Admin Dose 70 MLS/HR; Start 03/31/17 at 15:00 Insulin Glargine (Lantus) 10 unit HS SC Last administered on 04/17/17 21:32; Admin Dose 10 UNIT; Start 04/01/17 at 21:00 Miscellaneous Information 1 ea NOTE XX ; Start 03/31/17 at 21:00 Glucose (Glutose) 15 gm Q15M PRN PO DECREASED GLUCOSE; Start 03/31/17 at 21:00 Glucose (Glutose) 22.5 gm Q15M PRN PO DECREASED GLUCOSE; Start 03/31/17 at 21: 00 Dextrose (D50w Syringe) 25 ml Q15M PRN IV DECREASED GLUCOSE; Start 03/31/17 at 21:00 Dextrose (D50w Syringe) 50 ml Q15M PRN IV DECREASED GLUCOSE; Start 03/31/17 at 21:00 Glucagon (Glucagen) 1 mg Q15M PRN IM DECREASED GLUCOSE; Start 03/31/17 at 21: 00 Glucose (Glutose) 15 gm Q15M PRN BUCCAL DECREASED GLUCOSE; Start 03/31/17 at 21:00 Diagnostic Test (Pha) (Accu-Chek) 1 ea 02 XX ; Start 04/06/17 at 02:00 Ascorbic Acid (Vitamin C) 500 mg DAILY PO Last administered on 04/18/17 08:51 ; Admin Dose 500 MG; Start 04/11/17 at 09:00 Zinc Sulfate (Zinc Sulfate) 220 mg DAILY PO Last administered on 04/18/17 08: 51; Admin Dose 220 MG; Start 04/11/17 at 09:00 Fentanyl (Duragesic 25 Mcg/Hr Patch) 1 patch Q3D TRANSDERM Last administered on 04/17/17 18:59; Admin Dose 1 PATCH; Start 04/11/17 at 17:00 Loperamide HCl (Imodium Cap) 2 mg TID PO Last administered on 04/18/17 08:51 ; Admin Dose 2 MG; Start 04/15/17 at 13:00 Nystatin (Nystatin Powder) 1 applic PRN TOP ; Start 04/16/17 at 16:30 ALLISON HAYWARD Apr 18, 2017 10:14
[2017-04-18] MEDS: OXYCODONE/ACETAMINOPHEN (5/325) TAB PO PRN ×2 (12:17→16:32)
--- NOTE | 2017-04-18 14:48 | CONS ---
Date/Time of Note Date/Time of Note DATE: 04/18/17 TIME: 14:43 Assessment/Plan Assessment/Plan Additional Assessment/Plan 1. acute kidney injury Non oliguric .UO 3350 CC/24 Hr 2. H/o ESBL UTI 3.history of bladder cancer s/p TURBT, chemotherapy/radiation, urethral damage, chemo/radiation induced urinary and fecal incontinence. He underwent cystoprostatectomy with urinary diversion, ileal conduit, colonic diversion for fistula on last admission Plan: -Off abx now -on TPN at 70 cc/hr -cr trended down-1.76- will give 500 cc NS at 40cchr x 1,am labs -will continue to follow up Dw Dr Dion Miranda/staff Consultation Date/Type/Reason Admit Date/Time Mar 30, 2017 at 02:24 Initial Consult Date 04/01/17 Type of Consultation: NEPHROLOGY Referring Provider: ALLISON HAYWARD 24 HR Interval Summary Free Text/Dictation afebrile Cr-1.76 U0 =3350 ML/24V HR - family at bed side-all Qs answered Dw staff Constitutional: requiring IVF Exam/Review of Systems Vital Signs Vitals Vital Signs Date Time Temp Pulse Resp B/P Pulse Ox O2 Delivery O2 Flow Rate FiO2 04/18/17 07:44 98.8 71 16 84/48 100 04/15/17 18:33 Room Air Intake and Output 04/17/17 04/17/17 04/18/17 15:00 23:00 07:00 Intake Total 590 ml 1780 ml 6601 ml Output Total 2450 ml 900 ml Balance 590 ml -670 ml 5701 ml Exam Constitutional: alert, oriented Cardiovascular: nl pulses, other (s1s2) Gastrointestinal: non-tender, soft Musculoskeletal: nl extremities to inspection Extremities: normal pulses Neurological: nl mental status, nl speech Results Result Diagram: 04/18/1744104/18/172 Results 24 hrs Laboratory Tests Test 04/17/17 17:36 04/17/17 21:30 04/18/17 04:27 04/18/17 04:42 Bedside Glucose 132 170 Phosphorus Level 3.6 Magnesium Level 2.1 White Blood Count 6.9 Red Blood Count 2.97 L Hemoglobin 8.3 L Hematocrit 26.3 L Mean Corpuscular Volume 88.6 Mean Corpuscular Hemoglobin 27.9 L Mean Corpuscular Hemoglobin Concent 31.6 L Red Cell Distribution Width 14.9 H Platelet Count 233 # Mean Platelet Volume 9.1 Neutrophils % 60.4 Segmented Neutrophils % (Manual) 64 Band Neutrophils % (Manual) 1 Lymphocytes % 27.4 Lymphocytes % (Manual) 25 Monocytes % 10.3 Monocytes % (Manual) 9 Eosinophils % 1.3 Eosinophils % (Manual) 1 Basophils % 0.3 Nucleated Red Blood Cells % 1 H Neutrophils # 4.2 Neutrophils # (Manual) 4.4 Band Neutrophils # 0.0 Absolute Lymphocytes (Manual) 1.7 Lymphocytes # 1.9 Monocytes # 0.7 Absolute Monocytes (Manual) 0.6 Eosinophils # 0.1 Basophils # 0.0 Nucleated Red Blood Cells # 0.0 Platelet Estimate NORMAL Polychromasia 3+ Anisocytosis 1+ Microcytosis 1+ Sodium Level 139 Potassium Level 4.6 Chloride Level 105 Carbon Dioxide Level 23 Anion Gap 16 Blood Urea Nitrogen 59 H Creatinine 1.76 H Glucose Level 110 Calcium Level 8.8 Test 04/18/17 08:52 04/18/17 12:12 Bedside Glucose 122 128 Medications Medications Current Medications Ondansetron HCl (Zofran Inj) 4 mg Q6H PRN IV NAUSEA AND/OR VOMITING Last administered on 04/17/17 17:46; Admin Dose 4 MG; Start 03/30/17 at 03:30 Heparin Sodium (Porcine) (Heparin (5000 Units/0.5 ml)) 5,000 unit DAILY SC Last administered on 04/18/17 08:59; Admin Dose 5,000 UNIT; Start 03/30/17 at 09:00 Oxycodone/ Acetaminophen 1 tab 1 tab Q4H PRN PO PAIN Last administered on 04/18 12:17; Admin Dose 1 TAB; Start 03/30/17 at 06:00 Total Parenteral Nutrition (Tpn) 1,000 ml @ 70 mls/hr [id number] IV Last administered on 04/18/17 01:33; Admin Dose 70 MLS/HR; Start 03/31/17 at 15:00 Insulin Glargine (Lantus) 10 unit HS SC Last administered on 04/17/17 21:32; Admin Dose 10 UNIT; Start 04/01/17 at 21:00 Miscellaneous Information 1 ea NOTE XX ; Start 03/31/17 at 21:00 Glucose (Glutose) 15 gm Q15M PRN PO DECREASED GLUCOSE; Start 03/31/17 at 21:00 Glucose (Glutose) 22.5 gm Q15M PRN PO DECREASED GLUCOSE; Start 03/31/17 at 21: 00 Dextrose (D50w Syringe) 25 ml Q15M PRN IV DECREASED GLUCOSE; Start 03/31/17 at 21:00 Dextrose (D50w Syringe) 50 ml Q15M PRN IV DECREASED GLUCOSE; Start 03/31/17 at 21:00 Glucagon (Glucagen) 1 mg Q15M PRN IM DECREASED GLUCOSE; Start 03/31/17 at 21: 00 Glucose (Glutose) 15 gm Q15M PRN BUCCAL DECREASED GLUCOSE; Start 03/31/17 at 21:00 Diagnostic Test (Pha) (Accu-Chek) 1 ea 02 XX ; Start 04/06/17 at 02:00 Ascorbic Acid (Vitamin C) 500 mg DAILY PO Last administered on 04/18/17 08:51 ; Admin Dose 500 MG; Start 04/11/17 at 09:00 Zinc Sulfate (Zinc Sulfate) 220 mg DAILY PO Last administered on 04/18/17 08: 51; Admin Dose 220 MG; Start 04/11/17 at 09:00 Fentanyl (Duragesic 25 Mcg/Hr Patch) 1 patch Q3D TRANSDERM Last administered on 04/17/17 18:59; Admin Dose 1 PATCH; Start 04/11/17 at 17:00 Loperamide HCl (Imodium Cap) 2 mg TID PO Last administered on 04/18/17 12:11 ; Admin Dose 2 MG; Start 04/15/17 at 13:00 Nystatin (Nystatin Powder) 1 applic PRN TOP ; Start 04/16/17 at 16:30 MARSHAL SLATER Apr 18, 2017 14:48
[2017-04-18 15:22] VITALS: BP 88/50; RESP 16
--- NOTE | 2017-04-18 16:50 | CONS ---
Date/Time of Note Date/Time of Note DATE: 04/18/17 TIME: 16:48 Consult Date/Type/Reason Admit Date/Time Mar 30, 2017 at 02:24 Initial Consult Date 04/01/17 Type of Consultation: ID Ordering Provider: ALLISON HAYWARD Objective Vital Signs Date Time Temp Pulse Resp B/P Pulse Ox O2 Delivery O2 Flow Rate FiO2 04/18/17 15:22 72 16 88/50 100 04/18/17 07:44 98.8 04/15/17 18:33 Room Air Intake and Output 04/17/17 04/17/17 04/18/17 15:00 23:00 07:00 Intake Total 590 ml 1780 ml 6601 ml Output Total 2450 ml 900 ml Balance 590 ml -670 ml 5701 ml Results/Medications Result Diagram: 04/18/17 0442 04/18/17 0442 Results 24 hrs Laboratory Tests Test 04/17/17 17:36 04/17/17 21:30 04/18/17 04:27 04/18/17 04:42 Bedside Glucose 132 170 Phosphorus Level 3.6 Magnesium Level 2.1 White Blood Count 6.9 Red Blood Count 2.97 L Hemoglobin 8.3 L Hematocrit 26.3 L Mean Corpuscular Volume 88.6 Mean Corpuscular Hemoglobin 27.9 L Mean Corpuscular Hemoglobin Concent 31.6 L Red Cell Distribution Width 14.9 H Platelet Count 233 # Mean Platelet Volume 9.1 Neutrophils % 60.4 Segmented Neutrophils % (Manual) 64 Band Neutrophils % (Manual) 1 Lymphocytes % 27.4 Lymphocytes % (Manual) 25 Monocytes % 10.3 Monocytes % (Manual) 9 Eosinophils % 1.3 Eosinophils % (Manual) 1 Basophils % 0.3 Nucleated Red Blood Cells % 1 H Neutrophils # 4.2 Neutrophils # (Manual) 4.4 Band Neutrophils # 0.0 Absolute Lymphocytes (Manual) 1.7 Lymphocytes # 1.9 Monocytes # 0.7 Absolute Monocytes (Manual) 0.6 Eosinophils # 0.1 Basophils # 0.0 Nucleated Red Blood Cells # 0.0 Platelet Estimate NORMAL Polychromasia 3+ Anisocytosis 1+ Microcytosis 1+ Sodium Level 139 Potassium Level 4.6 Chloride Level 105 Carbon Dioxide Level 23 Anion Gap 16 Blood Urea Nitrogen 59 H Creatinine 1.76 H Glucose Level 110 Calcium Level 8.8 Test 04/18/17 08:52 04/18/17 12:12 Bedside Glucose 122 128 Medications Current Medications Ondansetron HCl (Zofran Inj) 4 mg Q6H PRN IV NAUSEA AND/OR VOMITING Last administered on 04/17/17 17:46; Admin Dose 4 MG; Start 03/30/17 at 03:30 Heparin Sodium (Porcine) (Heparin (5000 Units/0.5 ml)) 5,000 unit DAILY SC Last administered on 04/18/17 08:59; Admin Dose 5,000 UNIT; Start 03/30/17 at 09:00 Oxycodone/ Acetaminophen 1 tab 1 tab Q4H PRN PO PAIN Last administered on 04/18 16:32; Admin Dose 1 TAB; Start 03/30/17 at 06:00 Total Parenteral Nutrition (Tpn) 1,000 ml @ 70 mls/hr [id number] IV Last administered on 04/18/17 15:54; Admin Dose 70 MLS/HR; Start 03/31/17 at 15:00 Insulin Glargine (Lantus) 10 unit HS SC Last administered on 04/17/17 21:32; Admin Dose 10 UNIT; Start 04/01/17 at 21:00 Miscellaneous Information 1 ea NOTE XX ; Start 03/31/17 at 21:00 Glucose (Glutose) 15 gm Q15M PRN PO DECREASED GLUCOSE; Start 03/31/17 at 21:00 Glucose (Glutose) 22.5 gm Q15M PRN PO DECREASED GLUCOSE; Start 03/31/17 at 21: 00 Dextrose (D50w Syringe) 25 ml Q15M PRN IV DECREASED GLUCOSE; Start 03/31/17 at 21:00 Dextrose (D50w Syringe) 50 ml Q15M PRN IV DECREASED GLUCOSE; Start 03/31/17 at 21:00 Glucagon (Glucagen) 1 mg Q15M PRN IM DECREASED GLUCOSE; Start 03/31/17 at 21: 00 Glucose (Glutose) 15 gm Q15M PRN BUCCAL DECREASED GLUCOSE; Start 03/31/17 at 21:00 Diagnostic Test (Pha) (Accu-Chek) 1 ea 02 XX ; Start 04/06/17 at 02:00 Ascorbic Acid (Vitamin C) 500 mg DAILY PO Last administered on 04/18/17 08:51 ; Admin Dose 500 MG; Start 04/11/17 at 09:00 Zinc Sulfate (Zinc Sulfate) 220 mg DAILY PO Last administered on 04/18/17 08: 51; Admin Dose 220 MG; Start 04/11/17 at 09:00 Fentanyl (Duragesic 25 Mcg/Hr Patch) 1 patch Q3D TRANSDERM Last administered on 04/17/17 18:59; Admin Dose 1 PATCH; Start 04/11/17 at 17:00 Loperamide HCl (Imodium Cap) 2 mg TID PO Last administered on 04/18/17 12:11 ; Admin Dose 2 MG; Start 04/15/17 at 13:00 Nystatin (Nystatin Powder) 1 applic PRN TOP ; Start 04/16/17 at 16:30 Assessment/Plan Chief Complaint/Hosp Course SUBJECTIVE: Tm 100.2 last nighth. The patient is alert, feels good, looks comfortable MICROBIOLOGY: Urine culture on admission grew Escherichia coli extended- spectrum beta-lactamase and Enterococcus species===> s/p Merrem and Zyvox. PHYSICAL EXAMINATION: GENERAL: This is a cachectic, chronically ill-appearing, elderly man who is in no distress. HEENT: Head atraumatic, normocephalic. Sclerae anicteric. NECK: Supple. CHEST: Rise symmetrical. Breath sounds diminished to bases. HEART: S1, S2. ABDOMEN: Soft, bowel tones present. EXTREMITIES: Without cyanosis. ASSESSMENT: 1. SIRS with low grade temps ? recurrent urinary tract infection. 2. History of bladder and prostate cancer, status post chemoradiation and cystoprostatectomy with urinary diversion and ileostomy conduit. 3. History of perforated viscus repair and multiple pelvic abscess pseudocyst drainages. 4. Acute kidney failure with a history of obstructive uropathy with bilateral JJ stent placement. 5. Cachexia. PLAN: The patient remains stable. Off abx. Will repeat urine cx and 2 sets of bld cx from PICC, also cxr in am. If continues to spike will start back on abx DW pt/RN Problems: KING MARQUES NP Apr 18, 2017 16:50
--- NOTE | 2017-04-18 17:03 | RADRPT ---
PROCEDURE: XR Chest. CLINICAL INDICATION: Cough TECHNIQUE: Single portable view of the chest was obtained COMPARISON: 12/29/2016 FINDINGS: Heart is normal in size the lungs are clear. No acute osseous abnormality.. RPTAT: AA IMPRESSION: No acute cardiopulmonary disease Sonia Cameron Physician Date Time Electronically viewed and signed by Sonia Cameron, Physician on 04/18/2017 17:02 [place]/
--- NOTE | 2017-04-18 18:18 | PN ---
Date/Time of Note Date/Time of Note DATE: 04/18/17 TIME: 18:08 Assessment/Plan Lines/Catheters IV Catheter Type (from Nrs): PICC Line Tomas in Place (from Nrs): No Assessment/Plan Chief Complaint/Hosp Course 1. Multiple ostomies and ileal conduit: all ostomies pink and moist; s/p multiple Perforated viscous w small bowel proximal looped ostomy (minimum 6 month wait prior to considering attempting abdominal re-exploration); rectal discharge -continue ostomy care -continue oral feed and supplements; hopefully can wean off tpn for discharge to snf -continue local abdominal wound care-w vac -oral diet as tolerated with protein shakes and probiotics -oob/ambulate -urology consult-still pending 2. UTI (polymicrobial, complicated)pink with mucous urine -abx/antimicrobials per sensitivity -frequent bladder emptying/cath care -urology 3. Malnutrition: tolerating solid diet; spoke w pta -continue tpn -vitamins, probiotics, and nutritional supplements -encourage supplements -calorie count; hopefully wean off tpn if able for dc to snf if unable to find snf that accepts tpn -started on antimotility agent and fish oil 4. MANA: -judicious fluids -limit nephrotoxic meds -per renal 5. Bladder cancer: s/p chemo/radiation, s/p cystoprostatectomy with urinary diversion -per oncology/urology 6. Normocytic hypochromic anemia: no overt bleed noted -monitor -transfuse as needed -further workup per medical team 7. Pelvic pain:on fentanyl patch; still with pain; ? up titrate med -pain management 8. Min temp: cxr negative -further workup if fever spikes Thank you. Patient seen and examined in collaboration with Dr. Bang Ross Problems: Subjective 24 Hr Interval Summary No rectal drainage today. Min temp. Cxr clear. continues on tpn. Ostomies pink and draining. No sob, congested cough, cp, palpitations, craig, dizziness, n/v/d/ dysuria. Exam/Review of Systems Vital Signs Vitals Vital Signs Date Time Temp Pulse Resp B/P Pulse Ox O2 Delivery O2 Flow Rate FiO2 04/18/17 15:22 72 16 88/50 100 04/18/17 07:44 98.8 04/15/17 18:33 Room Air Intake and Output 04/17/17 04/17/17 04/18/17 15:00 23:00 07:00 Intake Total 590 ml 1780 ml 6601 ml Output Total 2450 ml 900 ml Balance 590 ml -670 ml 5701 ml Exam Free Text/Dictation Constitutional: alert, frail, oriented Psych: nl mood/affect Head: atraumatic, normocephalic Eyes: nl lids, nl sclera ENMT: mucosa pink and moist, nl nasal mucosa & septum Neck: non-tender, supple Respiratory: normal air movement Cardiovascular: nl pulses, regular rate and rhythm Gastrointestinal: non-tender, other (ileostomy, colostomy, urostomy- output yellow cloudy-all ostomies pink and moist), soft, wound scan drainage, no erythema Genitourinary - Male: nl penis, nl scrotum; ileal conduit with mucous/sediment output Musculoskeletal: nl extremities to inspection, nl gait and stance Extremities: normal pulses, No edema Neurological: nl mental status, nl speech Skin: nl turgor, rash or lesions; lower abdomen wound; redness/irritation around ostomies Results Result Diagram: 04/18/17 0442 04/18/17 0442 IFTIKHAR ROBERTSON NP Apr 18, 2017 18:18
[2017-04-18 19:11] VITALS: BP 91/52; RESP 16
[2017-04-18 20:46] VITALS: BP 97/53; RESP 16
[2017-04-18] MEDS: INSULIN GLARGINE [LANtus] 3 ML PEN SC SCH (20:55)
[2017-04-19] MEDS: ACCUCHECK AT 2AM (Patients on SS coverage) XX SCH (02:00)
[2017-04-19 02:20] VITALS: BP 100/56; RESP 14
[2017-04-19 05:15] LABS: BASOPHILS % 0.1 % (0.0-2.0); EOSINOPHILS # 0.1 10^3/ul (0.0-0.5); EOSINOPHILS % 1.4 % (0.0-7.0); HEMOGLOBIN 8.2 g/dl (14.0-18.0); LYMPHOCYTES # 1.9 10^3/ul (0.8-2.9); LYMPHOCYTES % 26.1 % (15.0-51.0); MEAN CORPUSCULAR HEMOGLOBIN 27.7 pg (29.0-33.0); MEAN CORPUSCULAR HGB CONC 31.5 g/dl (32.0-37.0); MEAN CORPUSCULAR VOLUME 87.8 fl (82.0-101.0); MEAN PLATELET VOLUME 9.5 fl (7.4-10.4); MONOCYTE # 0.7 10^3/ul (0.3-0.9); MONOCYTES % 9.5 % (0.0-11.0); NEUTROPHIL # 4.5 10^3/ul (1.6-7.5); NEUTROPHILS % 62.5 % (39.0-77.0); PLATELET COUNT 237 10^3/UL (140-415); RED BLOOD COUNT 2.96 10^6/ul (4.70-6.10); WHITE BLOOD COUNT 7.3 10^3/ul (4.8-10.8)
[2017-04-19 05:34] LABS: CALCIUM 9.1 mg/dl (8.4-10.2); CREATININE 1.68 mg/dl (0.61-1.24); POTASSIUM 4.3 mmol/L (3.5-5.1)
[2017-04-19] MEDS: OXYCODONE/ACETAMINOPHEN (5/325) TAB PO PRN ×2 (06:14→15:43)
[2017-04-19] MEDS: TPN 1,000 ML IV SCH ×2 (06:14→21:47)
[2017-04-19 07:30] VITALS: BP 89/52; RESP 18
[2017-04-19] MEDS: ZINC SULFATE 220 MG CAP PO SCH (09:04)
[2017-04-19] MEDS: LOPERAMIDE 2 MG CAP PO SCH ×3 (09:04→20:38)
[2017-04-19] MEDS: ASCORBIC ACID 500 MG TAB PO SCH (09:04)
[2017-04-19] MEDS: HEPARIN 5,000 UNIT/0.5 ML VIAL SC SCH (09:06)
[2017-04-19] MEDS: Insulin NOVOLOG SS MODERATE Algorithm (SS with meals and bedtime) SC SCH ×4 (09:12→21:00)
[2017-04-19 10:00] VITALS: BP 102/56; RESP 18
--- NOTE | 2017-04-19 10:19 | PN ---
Date/Time of Note Date/Time of Note DATE: 04/19/17 TIME: 10:18 Assessment/Plan VTE Prophylaxis VTE Prophylaxis Intervention: heparin Lines/Catheters IV C[facility]ter Type (from [facility]): TPN TUBING AND FILTER Urinary Cath still in place: No Assessment/Plan Chief Complaint/Hosp Course 1. Complicated urinary tract infection with polymicrobial's including E. coli ESBL. Status post antimicrobials as per infectious diseases. 2. Acute nonoliguric kidney injury. Etiology unclear. The patient being followed by nephrology. Use nephrotoxic drugs with caution. 3. Bladder cancer. Status post radical cystoprostatectomy and creation of ileal conduit with colonic diversion for fistula formation. 4. Status post perforated viscus repair complicated by intra-abdominal abscess requiring CT-guided drainage on previous admission. The patient has an abdominal wound vac in place. Being followed by surgery. 5. Severe protein calorie malnutrition. Patient on TPN. The patient on a mechanical soft diet. 6. Normocytic anemia. Etiology unclear. Probably anemia of chronic disease. 7. Fluids, electrolytes, and nutrition. TPN. Mechanical soft diet. 8. DVT prophylaxis. Subcutaneous heparin. 9. Plan. Antimicrobials has been discontinued. Patient continues to have febrile episodes. Repeat cultures pending at this time. Case discussed with Dr. Baez. Problems: Subjective 24 Hr Interval Summary Free Text/Dictation The patient continues to have febrile episodes. Exam/Review of Systems Vital Signs Vitals Vital Signs Date Time Temp Pulse Resp B/P Pulse Ox O2 Delivery O2 Flow Rate FiO2 04/19/17 07:30 98.1 79 18 89/52 100 04/15/17 18:33 Room Air Intake and Output 04/18/17 04/18/17 04/19/17 15:00 23:00 07:00 Intake Total 920 ml 1240 ml 1330 ml Output Total 1920 ml 2400 ml Balance 920 ml -680 ml -1070 ml Exam General:, Thin, frail looking 66 year-old male lying in bed in no apparent distress. HEENT: Normocephalic, atraumatic. Eyes: Anicteric sclerae, conjunctivae clear. ENT: Nasal septum midline, oral mucosa moist. Neck supple, no JVD noticed. Respiratory: Bilaterally diminished breath sounds. No use of accessory muscles of respiration. No adventitious breath sounds. Cardiovascular: S1, S2 heard. No murmurs or gallops. Abdomen: Soft, nontender, and nondistended. Abdominal wall wound Vac. Ileostomy draining light brown liquid output (less amount). Colostomy pink bud moist. Ileal conduit. Genitourinary: Deferred. Extremities: No cyanosis, no clubbing, no edema. Peripheral pulses palpable. Neurologic: Cranial nerves II through XII grossly intact. The patient is awake, alert, and oriented. Skin: Normal skin turgor. No skin rashes. Results Result Diagram: 04/19/17 0437 04/19/17 0437 Results 24 hrs Laboratory Tests Test 04/18/17 12:12 04/18/17 17:33 04/18/17 20:51 04/19/17 04:37 Bedside Glucose 128 102 110 White Blood Count 7.3 Red Blood Count 2.96 L Hemoglobin 8.2 L Hematocrit 26.0 L Mean Corpuscular Volume 87.8 Mean Corpuscular Hemoglobin 27.7 L Mean Corpuscular Hemoglobin Concent 31.5 L Red Cell Distribution Width 15.0 H Platelet Count 237 Mean Platelet Volume 9.5 Neutrophils % 62.5 Lymphocytes % 26.1 Monocytes % 9.5 Eosinophils % 1.4 Basophils % 0.1 Nucleated Red Blood Cells % 0.0 Neutrophils # 4.5 Lymphocytes # 1.9 Monocytes # 0.7 Eosinophils # 0.1 Basophils # 0.0 Nucleated Red Blood Cells # 0.0 Sodium Level 141 Potassium Level 4.3 Chloride Level 109 Carbon Dioxide Level 22 Anion Gap 14 Blood Urea Nitrogen 53 H Creatinine 1.68 H Glucose Level 108 Calcium Level 9.1 Test 04/19/17 09:11 Bedside Glucose 115 Medications Medications Current Medications Ondansetron HCl (Zofran Inj) 4 mg Q6H PRN IV NAUSEA AND/OR VOMITING Last administered on 04/17/17 17:46; Admin Dose 4 MG; Start 03/30/17 at 03:30 Heparin Sodium (Porcine) (Heparin (5000 Units/0.5 ml)) 5,000 unit DAILY SC Last administered on 04/19/17 09:06; Admin Dose 5,000 UNIT; Start 03/30/17 at 09:00 Oxycodone/ Acetaminophen 1 tab 1 tab Q4H PRN PO PAIN Last administered on 04/19 06:14; Admin Dose 1 TAB; Start 03/30/17 at 06:00 Total Parenteral Nutrition (Tpn) 1,000 ml @ 70 mls/hr [id number] IV Last administered on 04/19/17 06:14; Admin Dose 70 MLS/HR; Start 03/31/17 at 15:00 Insulin Glargine (Lantus) 10 unit HS SC Last administered on 04/18/17 20:55; Admin Dose 10 UNIT; Start 04/01/17 at 21:00 Miscellaneous Information 1 ea NOTE XX ; Start 03/31/17 at 21:00 Glucose (Glutose) 15 gm Q15M PRN PO DECREASED GLUCOSE; Start 03/31/17 at 21:00 Glucose (Glutose) 22.5 gm Q15M PRN PO DECREASED GLUCOSE; Start 03/31/17 at 21: 00 Dextrose (D50w Syringe) 25 ml Q15M PRN IV DECREASED GLUCOSE; Start 03/31/17 at 21:00 Dextrose (D50w Syringe) 50 ml Q15M PRN IV DECREASED GLUCOSE; Start 03/31/17 at 21:00 Glucagon (Glucagen) 1 mg Q15M PRN IM DECREASED GLUCOSE; Start 03/31/17 at 21: 00 Glucose (Glutose) 15 gm Q15M PRN BUCCAL DECREASED GLUCOSE; Start 03/31/17 at 21:00 Diagnostic Test (Pha) (Accu-Chek) 1 ea 02 XX ; Start 04/06/17 at 02:00 Ascorbic Acid (Vitamin C) 500 mg DAILY PO Last administered on 04/19/17 09:04 ; Admin Dose 500 MG; Start 04/11/17 at 09:00 Zinc Sulfate (Zinc Sulfate) 220 mg DAILY PO Last administered on 04/19/17 09: 04; Admin Dose 220 MG; Start 04/11/17 at 09:00 Fentanyl (Duragesic 25 Mcg/Hr Patch) 1 patch Q3D TRANSDERM Last administered on 04/17/17 18:59; Admin Dose 1 PATCH; Start 04/11/17 at 17:00 Loperamide HCl (Imodium Cap) 2 mg TID PO Last administered on 04/19/17 09:04 ; Admin Dose 2 MG; Start 04/15/17 at 13:00 Nystatin (Nystatin Powder) 1 applic PRN TOP ; Start 04/16/17 at 16:30 BRENDA PETTIT NP Apr 19, 2017 10:19
--- NOTE | 2017-04-19 11:15 | PN ---
Date/Time of Note Date/Time of Note DATE: 04/19/17 TIME: 11:14 Assessment/Plan Lines/Catheters IV Catheter Type (from Nrs): TPN TUBING AND FILTER Tomas in Place (from Nrs): No Assessment/Plan Chief Complaint/Hosp Course 1. Multiple ostomies and ileal conduit: all ostomies pink and moist; s/p multiple Perforated viscous w small bowel proximal looped ostomy (minimum 6 month wait prior to considering attempting abdominal re-exploration); rectal discharge -continue ostomy care -continue oral feed and supplements; hopefully can wean off tpn for discharge to snf -continue local abdominal wound care-w vac -oral diet as tolerated with protein shakes and probiotics -oob/ambulate -urology consult-still pending 2. UTI (polymicrobial, complicated)pink with mucous urine -abx/antimicrobials per sensitivity -frequent bladder emptying/cath care -urology 3. Malnutrition: tolerating solid diet; spoke w channeler -continue tpn -vitamins, probiotics, and nutritional supplements -encourage supplements -calorie count; hopefully wean off tpn if able for dc to snf if unable to find snf that accepts tpn -started on antimotility agent and fish oil 4. MANA: -judicious fluids -limit nephrotoxic meds -per renal 5. Bladder cancer: s/p chemo/radiation, s/p cystoprostatectomy with urinary diversion -per oncology/urology 6. Normocytic hypochromic anemia: no overt bleed noted -monitor -transfuse as needed -further workup per medical team 7. Pelvic pain:on fentanyl patch; still with pain; ? up titrate med -pain management 8. Min temp: cxr negative -further workup if fever spikes Thank you, Problems: Subjective 24 Hr Interval Summary No rectal drainage today. Min temp. Cxr clear. continues on tpn. Ostomies pink and draining. No sob, congested cough, cp, palpitations, craig, dizziness, n/v/d/ dysuria. Exam/Review of Systems Vital Signs Vitals Vital Signs Date Time Temp Pulse Resp B/P Pulse Ox O2 Delivery O2 Flow Rate FiO2 04/19/17 07:30 98.1 79 18 89/52 100 04/15/17 18:33 Room Air Intake and Output 04/18/17 04/18/17 04/19/17 15:00 23:00 07:00 Intake Total 920 ml 1240 ml 1330 ml Output Total 1920 ml 2400 ml Balance 920 ml -680 ml -1070 ml Exam Free Text/Dictation Constitutional: alert, frail, oriented Psych: nl mood/affect Head: atraumatic, normocephalic Eyes: nl lids, nl sclera ENMT: mucosa pink and moist, nl nasal mucosa & septum Neck: non-tender, supple Respiratory: normal air movement Cardiovascular: nl pulses, regular rate and rhythm Gastrointestinal: non-tender, other (ileostomy, colostomy, urostomy- output yellow cloudy-all ostomies pink and moist), soft, wound scan drainage, no erythema Genitourinary - Male: nl penis, nl scrotum; ileal conduit with mucous/sediment output Musculoskeletal: nl extremities to inspection, nl gait and stance Extremities: normal pulses, No edema Neurological: nl mental status, nl speech Skin: nl turgor, rash or lesions; lower abdomen wound; redness/irritation around ostomies Results Result Diagram: 04/19/17 0437 04/19/17 0437 OPAL CRUZ MD Apr 19, 2017 11:15
--- NOTE | 2017-04-19 12:21 | CONS ---
Date/Time of Note Date/Time of Note DATE: 04/19/17 TIME: 12:19 Consult Date/Type/Reason Admit Date/Time Mar 30, 2017 at 02:24 Initial Consult Date 04/01/17 Type of Consultation: ID Ordering Provider: ALLISON HAYWARD Objective Vital Signs Date Time Temp Pulse Resp B/P Pulse Ox O2 Delivery O2 Flow Rate FiO2 04/19/17 07:30 98.1 79 18 89/52 100 04/15/17 18:33 Room Air Intake and Output 04/18/17 04/18/17 04/19/17 15:00 23:00 07:00 Intake Total 920 ml 1240 ml 1330 ml Output Total 1920 ml 2400 ml Balance 920 ml -680 ml -1070 ml Results/Medications Result Diagram: 04/19/17 0437 04/19/17 0437 Results 24 hrs Laboratory Tests Test 04/18/17 17:33 04/18/17 20:51 04/19/17 04:37 04/19/17 09:11 Bedside Glucose 102 110 115 White Blood Count 7.3 Red Blood Count 2.96 L Hemoglobin 8.2 L Hematocrit 26.0 L Mean Corpuscular Volume 87.8 Mean Corpuscular Hemoglobin 27.7 L Mean Corpuscular Hemoglobin Concent 31.5 L Red Cell Distribution Width 15.0 H Platelet Count 237 Mean Platelet Volume 9.5 Neutrophils % 62.5 Lymphocytes % 26.1 Monocytes % 9.5 Eosinophils % 1.4 Basophils % 0.1 Nucleated Red Blood Cells % 0.0 Neutrophils # 4.5 Lymphocytes # 1.9 Monocytes # 0.7 Eosinophils # 0.1 Basophils # 0.0 Nucleated Red Blood Cells # 0.0 Sodium Level 141 Potassium Level 4.3 Chloride Level 109 Carbon Dioxide Level 22 Anion Gap 14 Blood Urea Nitrogen 53 H Creatinine 1.68 H Glucose Level 108 Calcium Level 9.1 Medications Current Medications Ondansetron HCl (Zofran Inj) 4 mg Q6H PRN IV NAUSEA AND/OR VOMITING Last administered on 04/17/17 17:46; Admin Dose 4 MG; Start 03/30/17 at 03:30 Heparin Sodium (Porcine) (Heparin (5000 Units/0.5 ml)) 5,000 unit DAILY SC Last administered on 04/19/17 09:06; Admin Dose 5,000 UNIT; Start 03/30/17 at 09:00 Oxycodone/ Acetaminophen 1 tab 1 tab Q4H PRN PO PAIN Last administered on 04/19 06:14; Admin Dose 1 TAB; Start 03/30/17 at 06:00 Total Parenteral Nutrition (Tpn) 1,000 ml @ 70 mls/hr [id number] IV Last administered on 04/19/17 06:14; Admin Dose 70 MLS/HR; Start 03/31/17 at 15:00 Insulin Glargine (Lantus) 10 unit HS SC Last administered on 04/18/17 20:55; Admin Dose 10 UNIT; Start 04/01/17 at 21:00 Miscellaneous Information 1 ea NOTE XX ; Start 03/31/17 at 21:00 Glucose (Glutose) 15 gm Q15M PRN PO DECREASED GLUCOSE; Start 03/31/17 at 21:00 Glucose (Glutose) 22.5 gm Q15M PRN PO DECREASED GLUCOSE; Start 03/31/17 at 21: 00 Dextrose (D50w Syringe) 25 ml Q15M PRN IV DECREASED GLUCOSE; Start 03/31/17 at 21:00 Dextrose (D50w Syringe) 50 ml Q15M PRN IV DECREASED GLUCOSE; Start 03/31/17 at 21:00 Glucagon (Glucagen) 1 mg Q15M PRN IM DECREASED GLUCOSE; Start 03/31/17 at 21: 00 Glucose (Glutose) 15 gm Q15M PRN BUCCAL DECREASED GLUCOSE; Start 03/31/17 at 21:00 Diagnostic Test (Pha) (Accu-Chek) 1 ea 02 XX ; Start 04/06/17 at 02:00 Ascorbic Acid (Vitamin C) 500 mg DAILY PO Last administered on 04/19/17 09:04 ; Admin Dose 500 MG; Start 04/11/17 at 09:00 Zinc Sulfate (Zinc Sulfate) 220 mg DAILY PO Last administered on 04/19/17 09: 04; Admin Dose 220 MG; Start 04/11/17 at 09:00 Fentanyl (Duragesic 25 Mcg/Hr Patch) 1 patch Q3D TRANSDERM Last administered on 04/17/17 18:59; Admin Dose 1 PATCH; Start 04/11/17 at 17:00 Loperamide HCl (Imodium Cap) 2 mg TID PO Last administered on 04/19/17 09:04 ; Admin Dose 2 MG; Start 04/15/17 at 13:00 Nystatin (Nystatin Powder) 1 applic PRN TOP ; Start 04/16/17 at 16:30 Assessment/Plan Chief Complaint/Hosp Course SUBJECTIVE: The patient is alert, feels good, looks comfortable MICROBIOLOGY: Urine culture on admission grew Escherichia coli extended- spectrum beta-lactamase and Enterococcus species===> s/p Merrem and Zyvox. Repeat urine cx + GNR PHYSICAL EXAMINATION: GENERAL: This is a cachectic, chronically ill-appearing, elderly man who is in no distress. HEENT: Head atraumatic, normocephalic. Sclerae anicteric. NECK: Supple. CHEST: Rise symmetrical. Breath sounds diminished to bases. HEART: S1, S2. ABDOMEN: Soft, bowel tones present. EXTREMITIES: Without cyanosis. ASSESSMENT: 1. SIRS with low grade temps 2 to recurrent urinary tract infection. 2. History of bladder and prostate cancer, status post chemoradiation and cystoprostatectomy with urinary diversion and ileostomy conduit. 3. History of perforated viscus repair and multiple pelvic abscess pseudocyst drainages. 4. Acute kidney failure with a history of obstructive uropathy with bilateral JJ stent placement. 5. Cachexia. PLAN: The patient remains stable. Will restart Invanz and await for final cx's DW pt/RN Problems: KING MARQUES NP Apr 19, 2017 12:21
[2017-04-19] MEDS: NYSTATIN 30 GM POWDER BTL TOP SCH (13:17)
[2017-04-19] MEDS: ERTAPENEM SODIUM 1 GM in SOD CHLORIDE 0.9% 100 ML IVPB SCH (14:00)
[2017-04-19 15:54] VITALS: BP 106/58; RESP 18
[2017-04-19 20:15] VITALS: BP 100/59; RESP 18
[2017-04-19] MEDS: INSULIN GLARGINE [LANtus] 3 ML PEN SC SCH (20:42)
--- NOTE | 2017-04-19 20:52 | CONS ---
Date/Time of Note Date/Time of Note DATE: 04/19/17 TIME: 20:51 Assessment/Plan Assessment/Plan Additional Assessment/Plan 1. acute kidney injury Non oliguric .UO 3350 CC/24 Hr 2. H/o ESBL UTI 3.history of bladder cancer s/p TURBT, chemotherapy/radiation, urethral damage, chemo/radiation induced urinary and fecal incontinence. He underwent cystoprostatectomy with urinary diversion, ileal conduit, colonic diversion for fistula on last admission Plan: -Off abx now -on TPN at 70 cc/hr -cr trended down-1.68- s/p IVF hydration , will follow up on Cr and electrolytes -will continue to follow up Consultation Date/Type/Reason Admit Date/Time Mar 30, 2017 at 02:24 Initial Consult Date 03/30/17 Type of Consultation: NEPHROLOGY Referring Provider: ALLISON HAYWARD 24 HR Interval Summary Free Text/Dictation Cr 1.68, good urine output , BP stable Exam/Review of Systems Vital Signs Vitals Vital Signs Date Time Temp Pulse Resp B/P Pulse Ox O2 Delivery O2 Flow Rate FiO2 04/19/17 20:15 98.7 77 18 100/59 99 04/15/17 18:33 Room Air Intake and Output 04/18/17 04/18/17 04/19/17 15:00 23:00 07:00 Intake Total 920 ml 1240 ml 1330 ml Output Total 1920 ml 2400 ml Balance 920 ml -680 ml -1070 ml Exam Constitutional: weak. No acute distress. He is cachectic) Head: atraumatic, normocephalic Eyes: EOMI, PERRL Respiratory: clear to auscultation, normal air movement Cardiovascular: nl pulses, regular rate and rhythm Gastrointestinal: other (Scaphoid abdomen. Urostomy, colostomy and ileal conduit) Extremities: normal pulses + PICC line in place , on TPN Results Result Diagram: 04/19/17 0437 04/19/17 0437 Results 24 hrs Laboratory Tests Test 04/19/17 04:37 04/19/17 09:11 04/19/17 13:15 04/19/17 18:18 White Blood Count 7.3 Red Blood Count 2.96 L Hemoglobin 8.2 L Hematocrit 26.0 L Mean Corpuscular Volume 87.8 Mean Corpuscular Hemoglobin 27.7 L Mean Corpuscular Hemoglobin Concent 31.5 L Red Cell Distribution Width 15.0 H Platelet Count 237 Mean Platelet Volume 9.5 Neutrophils % 62.5 Lymphocytes % 26.1 Monocytes % 9.5 Eosinophils % 1.4 Basophils % 0.1 Nucleated Red Blood Cells % 0.0 Neutrophils # 4.5 Lymphocytes # 1.9 Monocytes # 0.7 Eosinophils # 0.1 Basophils # 0.0 Nucleated Red Blood Cells # 0.0 Sodium Level 141 Potassium Level 4.3 Chloride Level 109 Carbon Dioxide Level 22 Anion Gap 14 Blood Urea Nitrogen 53 H Creatinine 1.68 H Glucose Level 108 Calcium Level 9.1 Bedside Glucose 115 133 173 Test 04/19/17 20:36 Bedside Glucose 105 Medications Medications Current Medications Ondansetron HCl (Zofran Inj) 4 mg Q6H PRN IV NAUSEA AND/OR VOMITING Last administered on 04/17/17 17:46; Admin Dose 4 MG; Start 03/30/17 at 03:30 Heparin Sodium (Porcine) (Heparin (5000 Units/0.5 ml)) 5,000 unit DAILY SC Last administered on 04/19/17 09:06; Admin Dose 5,000 UNIT; Start 03/30/17 at 09:00 Oxycodone/ Acetaminophen 1 tab 1 tab Q4H PRN PO PAIN Last administered on 04/19 15:43; Admin Dose 1 TAB; Start 03/30/17 at 06:00 Total Parenteral Nutrition (Tpn) 1,000 ml @ 70 mls/hr [id number] IV Last administered on 04/19/17 06:14; Admin Dose 70 MLS/HR; Start 03/31/17 at 15:00 Insulin Glargine (Lantus) 10 unit HS SC Last administered on 04/19/17 20:42; Admin Dose 10 UNIT; Start 04/01/17 at 21:00 Miscellaneous Information 1 ea NOTE XX ; Start 03/31/17 at 21:00 Glucose (Glutose) 15 gm Q15M PRN PO DECREASED GLUCOSE; Start 03/31/17 at 21:00 Glucose (Glutose) 22.5 gm Q15M PRN PO DECREASED GLUCOSE; Start 03/31/17 at 21: 00 Dextrose (D50w Syringe) 25 ml Q15M PRN IV DECREASED GLUCOSE; Start 03/31/17 at 21:00 Dextrose (D50w Syringe) 50 ml Q15M PRN IV DECREASED GLUCOSE; Start 03/31/17 at 21:00 Glucagon (Glucagen) 1 mg Q15M PRN IM DECREASED GLUCOSE; Start 03/31/17 at 21: 00 Glucose (Glutose) 15 gm Q15M PRN BUCCAL DECREASED GLUCOSE; Start 03/31/17 at 21:00 Diagnostic Test (Pha) (Accu-Chek) 1 ea 02 XX ; Start 04/06/17 at 02:00 Ascorbic Acid (Vitamin C) 500 mg DAILY PO Last administered on 04/19/17 09:04 ; Admin Dose 500 MG; Start 04/11/17 at 09:00 Zinc Sulfate (Zinc Sulfate) 220 mg DAILY PO Last administered on 04/19/17 09: 04; Admin Dose 220 MG; Start 04/11/17 at 09:00 Fentanyl (Duragesic 25 Mcg/Hr Patch) 1 patch Q3D TRANSDERM Last administered on 04/17/17 18:59; Admin Dose 1 PATCH; Start 04/11/17 at 17:00 Loperamide HCl (Imodium Cap) 2 mg TID PO Last administered on 04/19/17 20:38 ; Admin Dose 2 MG; Start 04/15/17 at 13:00 Nystatin 1 applic 1 applic PRN TOP Last administered on 04/19/17 13:17; Admin Dose 1 APPLIC; Start 04/16/17 at 16:30 Ertapenem/Sodium Chloride (Invanz/NS) 100 ml @ 200 mls/hr Q24H IVPB Last administered on 04/19/17 14:00; Admin Dose 200 MLS/HR; Start 04/19/17 at 14: 00 MARGOT WOMACK MD Apr 19, 2017 20:52
[2017-04-19] MEDS: ONDANSETRON 4 MG INJ IV PRN (21:54)
[2017-04-20] MEDS: ACCUCHECK AT 2AM (Patients on SS coverage) XX SCH (02:00)
[2017-04-20 02:18] VITALS: BP 93/55; RESP 17
[2017-04-20 05:18] LABS: BASOPHILS % 0.2 % (0.0-2.0); EOSINOPHILS # 0.1 10^3/ul (0.0-0.5); EOSINOPHILS % 0.7 % (0.0-7.0); HEMATOCRIT 26.7 % (42.0-52.0); HEMOGLOBIN 8.5 g/dl (14.0-18.0); LYMPHOCYTES # 1.6 10^3/ul (0.8-2.9); LYMPHOCYTES % 19.6 % (15.0-51.0); MEAN CORPUSCULAR HEMOGLOBIN 27.9 pg (29.0-33.0); MEAN CORPUSCULAR HGB CONC 31.8 g/dl (32.0-37.0); MEAN CORPUSCULAR VOLUME 87.5 fl (82.0-101.0); MEAN PLATELET VOLUME 9.2 fl (7.4-10.4); MONOCYTE # 0.8 10^3/ul (0.3-0.9); MONOCYTES % 10.1 % (0.0-11.0); NEUTROPHIL # 5.6 10^3/ul (1.6-7.5); NEUTROPHILS % 69.2 % (39.0-77.0); PLATELET COUNT 256 10^3/UL (140-415); RED BLOOD COUNT 3.05 10^6/ul (4.70-6.10); RED CELL DISTRIBUTION WIDTH 14.8 % (11.5-14.5)
[2017-04-20 05:36] LABS: PHOSPHORUS 3.5 mg/dl (2.5-4.9)
[2017-04-20 05:41] LABS: CALCIUM 9.4 mg/dl (8.4-10.2); CREATININE 1.74 mg/dl (0.61-1.24); POTASSIUM 4.5 mmol/L (3.5-5.1)
--- NOTE | 2017-04-20 07:34 | PN ---
Date/Time of Note Date/Time of Note DATE: 04/20/17 TIME: 07:31 Assessment/Plan VTE Prophylaxis VTE Prophylaxis Intervention: heparin Lines/Catheters IV [facility] TPN TUBING AND FILTER Urinary Cath still in place: No Assessment/Plan Chief Complaint/Hosp Course 1. Complicated urinary tract infection with polymicrobial's including E. coli ESBL. Status post antimicrobials as per infectious diseases. 2. Acute nonoliguric kidney injury. Etiology unclear. The patient being followed by nephrology. Use nephrotoxic drugs with caution. 3. Bladder cancer. Status post radical cystoprostatectomy and creation of ileal conduit with colonic diversion for fistula formation. To be evaluated by Urology. 4. Status post perforated viscus repair complicated by intra-abdominal abscess requiring CT-guided drainage on previous admission. The patient has an abdominal wound vac in place. Being followed by surgery. 5. Severe protein calorie malnutrition. Patient on TPN. The patient on a mechanical soft diet. 6. Normocytic anemia. Etiology unclear. Probably anemia of chronic disease. 7. Fluids, electrolytes, and nutrition. TPN. Mechanical soft diet. 8. DVT prophylaxis. Subcutaneous heparin. 9. Plan. Antimicrobials has been discontinued. Patient continues to have febrile episodes. Repeat urine cultures showing Gram negative rods. Await further ID recommendations. Case discussed with Dr. Baez. Problems: Subjective 24 Hr Interval Summary Free Text/Dictation The patient remains afebrile as of now. Exam/Review of Systems Vital Signs Vitals Vital Signs Date Time Temp Pulse Resp B/P Pulse Ox O2 Delivery O2 Flow Rate FiO2 04/20/17 02:18 99.1 80 17 93/55 98 Intake and Output 04/19/17 04/19/17 04/20/17 14:59 22:59 06:59 Intake Total 1900 ml 480 ml Output Total 1000 ml 2450 ml Balance 900 ml -1970 ml Exam General:, Thin, frail looking 66 year-old male lying in bed in no apparent distress. HEENT: Normocephalic, atraumatic. Eyes: Anicteric sclerae, conjunctivae clear. ENT: Nasal septum midline, oral mucosa moist. Neck supple, no JVD noticed. Respiratory: Bilaterally diminished breath sounds. No use of accessory muscles of respiration. No adventitious breath sounds. Cardiovascular: S1, S2 heard. No murmurs or gallops. Abdomen: Soft, nontender, and nondistended. Abdominal wall wound Vac. Ileostomy draining light brown liquid output (less amount). Colostomy pink bud moist. Ileal conduit. Genitourinary: Deferred. Extremities: No cyanosis, no clubbing, no edema. Peripheral pulses palpable. Neurologic: Cranial nerves II through XII grossly intact. The patient is awake, alert, and oriented. Skin: Normal skin turgor. No skin rashes. Results Result Diagram: 04/20/1744204/20/17 044 Results 24 hrs Laboratory Tests Test 04/19/17 09:11 04/19/17 13:15 04/19/17 18:18 04/19/17 20:36 Bedside Glucose 115 133 173 105 Test 04/20/17 04:43 White Blood Count 8.0 Red Blood Count 3.05 L Hemoglobin 8.5 L Hematocrit 26.7 L Mean Corpuscular Volume 87.5 Mean Corpuscular Hemoglobin 27.9 L Mean Corpuscular Hemoglobin Concent 31.8 L Red Cell Distribution Width 14.8 H Platelet Count 256 Mean Platelet Volume 9.2 Neutrophils % 69.2 Lymphocytes % 19.6 Monocytes % 10.1 Eosinophils % 0.7 Basophils % 0.2 Nucleated Red Blood Cells % 0.0 Neutrophils # 5.6 Lymphocytes # 1.6 Monocytes # 0.8 Eosinophils # 0.1 Basophils # 0.0 Nucleated Red Blood Cells # 0.0 Sodium Level 140 Potassium Level 4.5 Chloride Level 109 Carbon Dioxide Level 21 Anion Gap 15 Blood Urea Nitrogen 52 H Creatinine 1.74 H Glucose Level 121 Calcium Level 9.4 Phosphorus Level 3.5 Magnesium Level 2.0 Medications Medications Current Medications Ondansetron HCl (Zofran Inj) 4 mg Q6H PRN IV NAUSEA AND/OR VOMITING Last administered on 04/19/17 21:54; Admin Dose 4 MG; Start 03/30/17 at 03:30 Heparin Sodium (Porcine) (Heparin (5000 Units/0.5 ml)) 5,000 unit DAILY SC Last administered on 04/19/17 09:06; Admin Dose 5,000 UNIT; Start 03/30/17 at 09:00 Oxycodone/ Acetaminophen 1 tab 1 tab Q4H PRN PO PAIN Last administered on 04/19 15:43; Admin Dose 1 TAB; Start 03/30/17 at 06:00 Total Parenteral Nutrition (Tpn) 1,000 ml @ 70 mls/hr [id number] IV Last administered on 04/19/17 21:47; Admin Dose 70 MLS/HR; Start 03/31/17 at 15:00 Insulin Glargine (Lantus) 10 unit HS SC Last administered on 04/19/17 20:42; Admin Dose 10 UNIT; Start 04/01/17 at 21:00 Miscellaneous Information 1 ea NOTE XX ; Start 03/31/17 at 21:00 Glucose (Glutose) 15 gm Q15M PRN PO DECREASED GLUCOSE; Start 03/31/17 at 21:00 Glucose (Glutose) 22.5 gm Q15M PRN PO DECREASED GLUCOSE; Start 03/31/17 at 21: 00 Dextrose (D50w Syringe) 25 ml Q15M PRN IV DECREASED GLUCOSE; Start 03/31/17 at 21:00 Dextrose (D50w Syringe) 50 ml Q15M PRN IV DECREASED GLUCOSE; Start 03/31/17 at 21:00 Glucagon (Glucagen) 1 mg Q15M PRN IM DECREASED GLUCOSE; Start 03/31/17 at 21: 00 Glucose (Glutose) 15 gm Q15M PRN BUCCAL DECREASED GLUCOSE; Start 03/31/17 at 21:00 Diagnostic Test (Pha) (Accu-Chek) 1 ea 02 XX ; Start 04/06/17 at 02:00 Ascorbic Acid (Vitamin C) 500 mg DAILY PO Last administered on 04/19/17 09:04 ; Admin Dose 500 MG; Start 04/11/17 at 09:00 Zinc Sulfate (Zinc Sulfate) 220 mg DAILY PO Last administered on 04/19/17 09: 04; Admin Dose 220 MG; Start 04/11/17 at 09:00 Fentanyl (Duragesic 25 Mcg/Hr Patch) 1 patch Q3D TRANSDERM Last administered on 04/17/17 18:59; Admin Dose 1 PATCH; Start 04/11/17 at 17:00 Loperamide HCl (Imodium Cap) 2 mg TID PO Last administered on 04/19/17 20:38 ; Admin Dose 2 MG; Start 04/15/17 at 13:00 Nystatin 1 applic 1 applic PRN TOP Last administered on 04/19/17 13:17; Admin Dose 1 APPLIC; Start 04/16/17 at 16:30 Ertapenem/Sodium Chloride (Invanz/NS) 100 ml @ 200 mls/hr Q24H IVPB Last administered on 04/19/17t 14:00; Admin Dose 200 MLS/HR; Start 04/19/17 at 14: 00 BRENDA PETTIT [employer] SERVICES MA[employer] Apr 20, 2017 07:34
[2017-04-20] MEDS: Insulin NOVOLOG SS MODERATE Algorithm (SS with meals and bedtime) SC SCH ×4 (07:50→20:37)
[2017-04-20 08:04] VITALS: BP 102/58; RESP 18
[2017-04-20] MEDS: LOPERAMIDE 2 MG CAP PO SCH ×3 (08:45→20:34)
[2017-04-20] MEDS: ASCORBIC ACID 500 MG TAB PO SCH (08:45)
[2017-04-20] MEDS: ZINC SULFATE 220 MG CAP PO SCH (08:45)
[2017-04-20] MEDS: OXYCODONE/ACETAMINOPHEN (5/325) TAB PO PRN (08:55)
[2017-04-20] MEDS: HEPARIN 5,000 UNIT/0.5 ML VIAL SC SCH (09:09)
[2017-04-20] MEDS: TPN 1,000 ML IV SCH (11:49)
--- NOTE | 2017-04-20 12:57 | CONS ---
Date/Time of Note Date/Time of Note DATE: 04/20/17 TIME: 12:56 Consult Date/Type/Reason Admit Date/Time Mar 30, 2017 at 02:24 Initial Consult Date 04/01/17 Type of Consultation: ID Ordering Provider: ALLISON HAYWARD Objective Vital Signs Date Time Temp Pulse Resp B/P Pulse Ox O2 Delivery O2 Flow Rate FiO2 04/20/17 08:04 99.1 72 18 102/58 98 Intake and Output 04/19/17 04/19/17 04/20/17 14:59 22:59 06:59 Intake Total 1900 ml 1040 ml Output Total 1000 ml 2450 ml Balance 900 ml -1410 ml Results/Medications Result Diagram: 04/20/173 04/20/17 0443 Results 24 hrs Laboratory Tests Test 04/19/17 13:15 04/19/17 18:18 04/19/17 20:36 04/20/17 04:43 Bedside Glucose 133 173 105 White Blood Count 8.0 Red Blood Count 3.05 L Hemoglobin 8.5 L Hematocrit 26.7 L Mean Corpuscular Volume 87.5 Mean Corpuscular Hemoglobin 27.9 L Mean Corpuscular Hemoglobin Concent 31.8 L Red Cell Distribution Width 14.8 H Platelet Count 256 Mean Platelet Volume 9.2 Neutrophils % 69.2 Lymphocytes % 19.6 Monocytes % 10.1 Eosinophils % 0.7 Basophils % 0.2 Nucleated Red Blood Cells % 0.0 Neutrophils # 5.6 Lymphocytes # 1.6 Monocytes # 0.8 Eosinophils # 0.1 Basophils # 0.0 Nucleated Red Blood Cells # 0.0 Sodium Level 140 Potassium Level 4.5 Chloride Level 109 Carbon Dioxide Level 21 Anion Gap 15 Blood Urea Nitrogen 52 H Creatinine 1.74 H Glucose Level 121 Calcium Level 9.4 Phosphorus Level 3.5 Magnesium Level 2.0 Test 04/20/17 08:44 04/20/17 12:25 Bedside Glucose 112 123 Medications Current Medications Ondansetron HCl (Zofran Inj) 4 mg Q6H PRN IV NAUSEA AND/OR VOMITING Last administered on 04/19/17 21:54; Admin Dose 4 MG; Start 03/30/17 at 03:30 Heparin Sodium (Porcine) (Heparin (5000 Units/0.5 ml)) 5,000 unit DAILY SC Last administered on 04/20/17 09:09; Admin Dose 5,000 UNIT; Start 03/30/17 at 09:00 Oxycodone/ Acetaminophen 1 tab 1 tab Q4H PRN PO PAIN Last administered on 04/20 08:55; Admin Dose 1 TAB; Start 03/30/17 at 06:00 Total Parenteral Nutrition (Tpn) 1,000 ml @ 70 mls/hr [id number] IV Last administered on 04/20/17 11:49; Admin Dose 70 MLS/HR; Start 03/31/17 at 15:00 Insulin Glargine (Lantus) 10 unit HS SC Last administered on 04/19/17 20:42; Admin Dose 10 UNIT; Start 04/01/17 at 21:00 Miscellaneous Information 1 ea NOTE XX ; Start 03/31/17 at 21:00 Glucose (Glutose) 15 gm Q15M PRN PO DECREASED GLUCOSE; Start 03/31/17 at 21:00 Glucose (Glutose) 22.5 gm Q15M PRN PO DECREASED GLUCOSE; Start 03/31/17 at 21: 00 Dextrose (D50w Syringe) 25 ml Q15M PRN IV DECREASED GLUCOSE; Start 03/31/17 at 21:00 Dextrose (D50w Syringe) 50 ml Q15M PRN IV DECREASED GLUCOSE; Start 03/31/17 at 21:00 Glucagon (Glucagen) 1 mg Q15M PRN IM DECREASED GLUCOSE; Start 03/31/17 at 21: 00 Glucose (Glutose) 15 gm Q15M PRN BUCCAL DECREASED GLUCOSE; Start 03/31/17 at 21:00 Diagnostic Test (Pha) (Accu-Chek) 1 ea 02 XX ; Start 04/06/17 at 02:00 Ascorbic Acid (Vitamin C) 500 mg DAILY PO Last administered on 04/20/17 08:45 ; Admin Dose 500 MG; Start 04/11/17 at 09:00 Zinc Sulfate (Zinc Sulfate) 220 mg DAILY PO Last administered on 04/20/17 08: 45; Admin Dose 220 MG; Start 04/11/17 at 09:00 Fentanyl (Duragesic 25 Mcg/Hr Patch) 1 patch Q3D TRANSDERM Last administered on 04/17/17 18:59; Admin Dose 1 PATCH; Start 04/11/17 at 17:00 Loperamide HCl (Imodium Cap) 2 mg TID PO Last administered on 04/20/17 08:45 ; Admin Dose 2 MG; Start 04/15/17 at 13:00 Nystatin 1 applic 1 applic PRN TOP Last administered on 04/19/17 13:17; Admin Dose 1 APPLIC; Start 04/16/17 at 16:30 Ertapenem/Sodium Chloride (Invanz/NS) 100 ml @ 200 mls/hr Q24H IVPB Last administered on 04/19/17 14:00; Admin Dose 200 MLS/HR; Start 04/19/17 at 14: 00 Assessment/Plan Chief Complaint/Hosp Course SUBJECTIVE: The patient is alert, feels good, looks comfortable, no fevers, no n/v MICROBIOLOGY: Urine culture on admission grew Escherichia coli extended- spectrum beta-lactamase and Enterococcus species===> s/p Merrem and Zyvox. Repeat urine cx + E coli ESBL Abx: Invanz PHYSICAL EXAMINATION: GENERAL: This is a cachectic, chronically ill-appearing, elderly man who is in no distress. HEENT: Head atraumatic, normocephalic. Sclerae anicteric. NECK: Supple. CHEST: Rise symmetrical. Breath sounds diminished to bases. HEART: S1, S2. ABDOMEN: Soft, bowel tones present. EXTREMITIES: Without cyanosis. ASSESSMENT: 1. SIRS with low grade temps 2 to recurrent urinary tract infection. 2. History of bladder and prostate cancer, status post chemoradiation and cystoprostatectomy with urinary diversion and ileostomy conduit. 3. History of perforated viscus repair and multiple pelvic abscess pseudocyst drainages. 4. Acute kidney failure with a history of obstructive uropathy with bilateral JJ stent placement. 5. Cachexia. PLAN: The patient remains stable. Restarted on Invanz, continue present care ROBIN pt/RN Problems: KING MARQUES NP Apr 20, 2017 12:57
[2017-04-20] MEDS: ERTAPENEM SODIUM 1 GM in SOD CHLORIDE 0.9% 100 ML IVPB SCH (13:37)
--- NOTE | 2017-04-20 17:51 | PN ---
Date/Time of Note Date/Time of Note DATE: 04/20/17 TIME: 17:50 Assessment/Plan Lines/Catheters IV Catheter Type (from Nrs): PICC Line Tomas in Place (from Nrs): No Assessment/Plan Chief Complaint/Hosp Course 1. Multiple ostomies and ileal conduit: all ostomies pink and moist; s/p multiple Perforated viscous w small bowel proximal looped ostomy (minimum 6 month wait prior to considering attempting abdominal re-exploration); rectal discharge -continue ostomy care -continue oral feed and supplements; hopefully can wean off tpn for discharge to snf -continue local abdominal wound care-w vac -oral diet as tolerated with protein shakes and probiotics -oob/ambulate -urology consult-still pending 2. UTI (polymicrobial, complicated)pink with mucous urine -abx/antimicrobials per sensitivity -frequent bladder emptying/cath care -urology 3. Malnutrition: tolerating solid diet; spoke w receiving associate -continue tpn -vitamins, probiotics, and nutritional supplements -encourage supplements -calorie count; hopefully wean off tpn if able for dc to snf if unable to find snf that accepts tpn -started on antimotility agent and fish oil 4. MANA: -judicious fluids -limit nephrotoxic meds -per renal 5. Bladder cancer: s/p chemo/radiation, s/p cystoprostatectomy with urinary diversion -per oncology/urology 6. Normocytic hypochromic anemia: no overt bleed noted -monitor -transfuse as needed -further workup per medical team 7. Pelvic pain:on fentanyl patch; still with pain; ? up titrate med -pain management 8. Min temp: cxr negative -further workup if fever spikes Thank you, Problems: Subjective 24 Hr Interval Summary TPN. No fever or chills. Min pain. Min dc at times. Ostomies pink and draining. No sob, congested cough, cp, palpitations, craig, dizziness, n/v/d/ dysuria. Exam/Review of Systems Vital Signs Vitals Vital Signs Date Time Temp Pulse Resp B/P Pulse Ox O2 Delivery O2 Flow Rate FiO2 04/20/17 08:04 99.1 72 18 102/58 98 Intake and Output 04/19/17 04/19/17 04/20/17 15:00 23:00 07:00 Intake Total 100 ml 1800 ml 1040 ml Output Total 1000 ml 2450 ml Balance 100 ml 800 ml -1410 ml Exam Free Text/Dictation Constitutional: alert, frail, oriented Psych: nl mood/affect Head: atraumatic, normocephalic Eyes: nl lids, nl sclera ENMT: mucosa pink and moist, nl nasal mucosa & septum Neck: non-tender, supple Respiratory: normal air movement Cardiovascular: nl pulses, regular rate and rhythm Gastrointestinal: non-tender, other (ileostomy, colostomy, urostomy- output yellow cloudy-all ostomies pink and moist), soft, wound scan drainage, no erythema Genitourinary - Male: nl penis, nl scrotum; ileal conduit with mucous/sediment output Musculoskeletal: nl extremities to inspection, nl gait and stance Extremities: normal pulses, No edema Neurological: nl mental status, nl speech Skin: nl turgor, rash or lesions; lower abdomen wound; redness/irritation around ostomies Results Result Diagram: 04/20/17 0443 04/20/17 0443 OPAL CRUZ MD Apr 20, 2017 17:51
--- NOTE | 2017-04-20 19:37 | CONS ---
Date/Time of Note Date/Time of Note DATE: 04/20/17 TIME: 19:36 Assessment/Plan Assessment/Plan Additional Assessment/Plan 1. acute kidney injury Non oliguric .UO 3350 CC/24 Hr 2. H/o ESBL UTI 3.history of bladder cancer s/p TURBT, chemotherapy/radiation, urethral damage, chemo/radiation induced urinary and fecal incontinence. He underwent cystoprostatectomy with urinary diversion, ileal conduit, colonic diversion for fistula on last admission Plan: -Off abx now -on TPN at 70 cc/hr -cr trended down-1.74- s/p IVF hydration , will follow up on Cr and electrolytes -will continue to follow up Consultation Date/Type/Reason Admit Date/Time Mar 30, 2017 at 02:24 Initial Consult Date 03/30/17 Type of Consultation: NEPHROLOGY Referring Provider: ALLISON HAYWARD 24 HR Interval Summary Free Text/Dictation Cr 1.74, Bp stable Exam/Review of Systems Vital Signs Vitals Vital Signs Date Time Temp Pulse Resp B/P Pulse Ox O2 Delivery O2 Flow Rate FiO2 04/20/17 08:04 99.1 72 18 102/58 98 Intake and Output 04/19/17 04/19/17 04/20/17 15:00 23:00 07:00 Intake Total 100 ml 1800 ml 1040 ml Output Total 1000 ml 2450 ml Balance 100 ml 800 ml -1410 ml Exam Constitutional: weak. No acute distress. He is cachectic) Head: atraumatic, normocephalic Eyes: EOMI, PERRL Respiratory: clear to auscultation, normal air movement Cardiovascular: nl pulses, regular rate and rhythm Gastrointestinal: other (Scaphoid abdomen. Urostomy, colostomy and ileal conduit) Extremities: normal pulses + PICC line in place , on TPN Results Result Diagram: 04/20/17 0443 04/20/17 0443 Results 24 hrs Laboratory Tests Test 04/19/17 20:36 04/20/17 04:43 04/20/17 08:44 04/20/17 12:25 Bedside Glucose 105 112 123 White Blood Count 8.0 Red Blood Count 3.05 L Hemoglobin 8.5 L Hematocrit 26.7 L Mean Corpuscular Volume 87.5 Mean Corpuscular Hemoglobin 27.9 L Mean Corpuscular Hemoglobin Concent 31.8 L Red Cell Distribution Width 14.8 H Platelet Count 256 Mean Platelet Volume 9.2 Neutrophils % 69.2 Lymphocytes % 19.6 Monocytes % 10.1 Eosinophils % 0.7 Basophils % 0.2 Nucleated Red Blood Cells % 0.0 Neutrophils # 5.6 Lymphocytes # 1.6 Monocytes # 0.8 Eosinophils # 0.1 Basophils # 0.0 Nucleated Red Blood Cells # 0.0 Sodium Level 140 Potassium Level 4.5 Chloride Level 109 Carbon Dioxide Level 21 Anion Gap 15 Blood Urea Nitrogen 52 H Creatinine 1.74 H Glucose Level 121 Calcium Level 9.4 Phosphorus Level 3.5 Magnesium Level 2.0 Test 04/20/17 18:19 Bedside Glucose 142 Medications Medications Current Medications Ondansetron HCl (Zofran Inj) 4 mg Q6H PRN IV NAUSEA AND/OR VOMITING Last administered on 04/19/17 21:54; Admin Dose 4 MG; Start 03/30/17 at 03:30 Heparin Sodium (Porcine) (Heparin (5000 Units/0.5 ml)) 5,000 unit DAILY SC Last administered on 04/20/17 09:09; Admin Dose 5,000 UNIT; Start 03/30/17 at 09:00 Oxycodone/ Acetaminophen 1 tab 1 tab Q4H PRN PO PAIN Last administered on 04/20 08:55; Admin Dose 1 TAB; Start 03/30/17 at 06:00 Total Parenteral Nutrition (Tpn) 1,000 ml @ 70 mls/hr [id number] IV Last administered on 04/20/17 11:49; Admin Dose 70 MLS/HR; Start 03/31/17 at 15:00 Insulin Glargine (Lantus) 10 unit HS SC Last administered on 04/19/17 20:42; Admin Dose 10 UNIT; Start 04/01/17 at 21:00 Miscellaneous Information 1 ea NOTE XX ; Start 03/31/17 at 21:00 Glucose (Glutose) 15 gm Q15M PRN PO DECREASED GLUCOSE; Start 03/31/17 at 21:00 Glucose (Glutose) 22.5 gm Q15M PRN PO DECREASED GLUCOSE; Start 03/31/17 at 21: 00 Dextrose (D50w Syringe) 25 ml Q15M PRN IV DECREASED GLUCOSE; Start 03/31/17 at 21:00 Dextrose (D50w Syringe) 50 ml Q15M PRN IV DECREASED GLUCOSE; Start 03/31/17 at 21:00 Glucagon (Glucagen) 1 mg Q15M PRN IM DECREASED GLUCOSE; Start 03/31/17 at 21: 00 Glucose (Glutose) 15 gm Q15M PRN BUCCAL DECREASED GLUCOSE; Start 03/31/17 at 21:00 Diagnostic Test (Pha) (Accu-Chek) 1 ea 02 XX ; Start 04/06/17 at 02:00 Ascorbic Acid (Vitamin C) 500 mg DAILY PO Last administered on 04/20/17 08:45 ; Admin Dose 500 MG; Start 04/11/17 at 09:00 Zinc Sulfate (Zinc Sulfate) 220 mg DAILY PO Last administered on 04/20/17 08: 45; Admin Dose 220 MG; Start 04/11/17 at 09:00 Fentanyl (Duragesic 25 Mcg/Hr Patch) 1 patch Q3D TRANSDERM Last administered on 04/20/17 18:25; Admin Dose 1 PATCH; Start 04/11/17 at 17:00 Loperamide HCl (Imodium Cap) 2 mg TID PO Last administered on 04/20/17 13:36 ; Admin Dose 2 MG; Start 04/15/17 at 13:00 Nystatin 1 applic 1 applic PRN TOP Last administered on 04/19/17 13:17; Admin Dose 1 APPLIC; Start 04/16/17 at 16:30 Ertapenem/Sodium Chloride (Invanz/NS) 100 ml @ 200 mls/hr Q24H IVPB Last administered on 04/20/17 13:37; Admin Dose 200 MLS/HR; Start 04/19/17 at 14: 00 MARGOT WOMACK MD Apr 20, 2017 19:37
[2017-04-20 20:05] VITALS: BP 106/65; RESP 17
[2017-04-20] MEDS: INSULIN GLARGINE [LANtus] 3 ML PEN SC SCH (20:37)
[2017-04-20] MEDS ORDERED: ACETAMINOPHEN 325 MG TAB PO PRN (22:00)
[2017-04-21] MEDS: ACCUCHECK AT 2AM (Patients on SS coverage) XX SCH (02:00)
[2017-04-21 02:16] VITALS: BP 94/53; RESP 18
[2017-04-21] MEDS: TPN 1,000 ML IV SCH ×2 (02:24→16:42)
[2017-04-21 05:31] LABS: BASOPHILS % 0.2 % (0.0-2.0); EOSINOPHILS # 0.1 10^3/ul (0.0-0.5); EOSINOPHILS % 1.2 % (0.0-7.0); HEMATOCRIT 36.4 % (42.0-52.0); HEMOGLOBIN 11.8 g/dl (14.0-18.0); LYMPHOCYTES # 1.1 10^3/ul (0.8-2.9); LYMPHOCYTES % 20.7 % (15.0-51.0); MEAN CORPUSCULAR HEMOGLOBIN 28.4 pg (29.0-33.0); MEAN CORPUSCULAR HGB CONC 32.4 g/dl (32.0-37.0); MEAN CORPUSCULAR VOLUME 87.5 fl (82.0-101.0); MEAN PLATELET VOLUME 9.6 fl (7.4-10.4); MONOCYTE # 0.5 10^3/ul (0.3-0.9); MONOCYTES % 9.3 % (0.0-11.0); NEUTROPHIL # 3.5 10^3/ul (1.6-7.5); PLATELET COUNT 199 10^3/UL (140-415); RED BLOOD COUNT 4.16 10^6/ul (4.70-6.10); RED CELL DISTRIBUTION WIDTH 14.6 % (11.5-14.5); WHITE BLOOD COUNT 5.2 10^3/ul (4.8-10.8)
[2017-04-21] MEDS: ONDANSETRON 4 MG INJ IV PRN ×2 (05:33→12:46)
[2017-04-21 05:49] LABS: MAGNESIUM 2.1 mg/dl (1.7-2.5); PHOSPHORUS 3.6 mg/dl (2.5-4.9)
[2017-04-21 05:54] LABS: CALCIUM 9.4 mg/dl (8.4-10.2); CREATININE 1.79 mg/dl (0.61-1.24); POTASSIUM 4.5 mmol/L (3.5-5.1)
--- NOTE | 2017-04-21 07:22 | PN ---
Date/Time of Note Date/Time of Note DATE: 04/21/17 TIME: 07:19 Assessment/Plan VTE Prophylaxis VTE Prophylaxis Intervention: heparin Lines/Catheters IV [facility]from [facility]): PICC Line Central line still needed: Yes Urinary Cath still in place: No Assessment/Plan Chief Complaint/Hosp Course 1. Complicated urinary tract infection with polymicrobial's including E. coli ESBL. Status post antimicrobials as per infectious diseases. Repeat urine cultures also showing ESBL. Therefore, the patient was started on carbapenems. 2. Acute nonoliguric kidney injury. Etiology unclear. The patient being followed by nephrology. Use nephrotoxic drugs with caution. 3. Bladder cancer. Status post radical cystoprostatectomy and creation of ileal conduit with colonic diversion for fistula formation. To be evaluated by Urology. 4. Status post perforated viscus repair complicated by intra-abdominal abscess requiring CT-guided drainage on previous admission. The patient has an abdominal wound vac in place. Being followed by surgery. 5. Severe protein calorie malnutrition. Patient on TPN. The patient on a mechanical soft diet. 6. Normocytic anemia. Etiology unclear. Probably anemia of chronic disease. 7. Fluids, electrolytes, and nutrition. TPN. Mechanical soft diet. 8. DVT prophylaxis. Subcutaneous heparin. 9. Plan. Continue antimicrobials as per ID. Await urology input. Checked with surgery. Surgery recommending to continue TPN until the patient has adequate calorie intake and absorption. Case discussed with Dr. Baez. Problems: Subjective 24 Hr Interval Summary Free Text/Dictation The patient remains afebrile. Exam/Review of Systems Vital Signs Vitals Vital Signs Date Time Temp Pulse Resp B/P Pulse Ox O2 Delivery O2 Flow Rate FiO2 04/21/17 02:16 98.5 65 18 94/53 99 Intake and Output 04/20/17 04/20/17 04/21/17 15:00 23:00 07:00 Intake Total 540 ml 1190 ml 1200 ml Output Total 1500 ml 2200 ml Balance 540 ml -310 ml -1000 ml Exam General:, Thin, frail looking 66 year-old male lying in bed in no apparent distress. HEENT: Normocephalic, atraumatic. Eyes: Anicteric sclerae, conjunctivae clear. ENT: Nasal septum midline, oral mucosa moist. Neck supple, no JVD noticed. Respiratory: Bilaterally diminished breath sounds. No use of accessory muscles of respiration. No adventitious breath sounds. Cardiovascular: S1, S2 heard. No murmurs or gallops. Abdomen: Soft, nontender, and nondistended. Abdominal wall wound Vac. Ileostomy draining light brown liquid output (less amount). Colostomy pink bud moist. Ileal conduit. Genitourinary: Deferred. Extremities: No cyanosis, no clubbing, no edema. Peripheral pulses palpable. Neurologic: Cranial nerves II through XII grossly intact. The patient is awake, alert, and oriented. Skin: Normal skin turgor. No skin rashes. Results Result Diagram: 04/21/177 04/21/17446 Results 24 hrs Laboratory Tests Test 04/20/17 08:44 04/20/17 12:25 04/20/17 18:19 04/20/17 20:29 Bedside Glucose 112 123 142 107 Test 04/21/17 04:47 White Blood Count 5.2 # Red Blood Count 4.16 #L Hemoglobin 11.8 #L Hematocrit 36.4 #L Mean Corpuscular Volume 87.5 Mean Corpuscular Hemoglobin 28.4 L Mean Corpuscular Hemoglobin Concent 32.4 Red Cell Distribution Width 14.6 H Platelet Count 199 # Mean Platelet Volume 9.6 Neutrophils % 68.0 Lymphocytes % 20.7 Monocytes % 9.3 Eosinophils % 1.2 Basophils % 0.2 Nucleated Red Blood Cells % 0.0 Neutrophils # 3.5 Lymphocytes # 1.1 Monocytes # 0.5 Eosinophils # 0.1 Basophils # 0.0 Nucleated Red Blood Cells # 0.0 Sodium Level 140 Potassium Level 4.5 Chloride Level 112 H Carbon Dioxide Level 17 L Anion Gap 16 Blood Urea Nitrogen 54 H Creatinine 1.79 H Glucose Level 111 Calcium Level 9.4 Phosphorus Level 3.6 Magnesium Level 2.1 Medications Medications Current Medications Ondansetron HCl (Zofran Inj) 4 mg Q6H PRN IV NAUSEA AND/OR VOMITING Last administered on 04/21/17 05:33; Admin Dose 4 MG; Start 03/30/17 at 03:30 Heparin Sodium (Porcine) (Heparin (5000 Units/0.5 ml)) 5,000 unit DAILY SC Last administered on 04/20/17 09:09; Admin Dose 5,000 UNIT; Start 03/30/17 at 09:00 Oxycodone/ Acetaminophen 1 tab 1 tab Q4H PRN PO PAIN Last administered on 04/20 08:55; Admin Dose 1 TAB; Start 03/30/17 at 06:00 Total Parenteral Nutrition (Tpn) 1,000 ml @ 70 mls/hr [id number] IV Last administered on 04/21/17 02:24; Admin Dose 70 MLS/HR; Start 03/31/17 at 15:00 Insulin Glargine (Lantus) 10 unit HS SC Last administered on 04/20/17 20:37; Admin Dose 10 UNIT; Start 04/01/17 at 21:00 Miscellaneous Information 1 ea NOTE XX ; Start 03/31/17 at 21:00 Glucose (Glutose) 15 gm Q15M PRN PO DECREASED GLUCOSE; Start 03/31/17 at 21:00 Glucose (Glutose) 22.5 gm Q15M PRN PO DECREASED GLUCOSE; Start 03/31/17 at 21: 00 Dextrose (D50w Syringe) 25 ml Q15M PRN IV DECREASED GLUCOSE; Start 03/31/17 at 21:00 Dextrose (D50w Syringe) 50 ml Q15M PRN IV DECREASED GLUCOSE; Start 03/31/17 at 21:00 Glucagon (Glucagen) 1 mg Q15M PRN IM DECREASED GLUCOSE; Start 03/31/17 at 21: 00 Glucose (Glutose) 15 gm Q15M PRN BUCCAL DECREASED GLUCOSE; Start 03/31/17 at 21:00 Diagnostic Test (Pha) (Accu-Chek) 1 ea 02 XX ; Start 04/06/17 at 02:00 Ascorbic Acid (Vitamin C) 500 mg DAILY PO Last administered on 04/20/17 08:45 ; Admin Dose 500 MG; Start 04/11/17 at 09:00 Zinc Sulfate (Zinc Sulfate) 220 mg DAILY PO Last administered on 04/20/17 08: 45; Admin Dose 220 MG; Start 04/11/17 at 09:00 Fentanyl (Duragesic 25 Mcg/Hr Patch) 1 patch Q3D TRANSDERM Last administered on 04/20/17 18:25; Admin Dose 1 PATCH; Start 04/11/17 at 17:00 Loperamide HCl (Imodium Cap) 2 mg TID PO Last administered on 04/20/17 20:34 ; Admin Dose 2 MG; Start 04/15/17 at 13:00 Nystatin 1 applic 1 applic PRN TOP Last administered on 04/19/17 13:17; Admin Dose 1 APPLIC; Start 04/16/17 at 16:30 Ertapenem/Sodium Chloride (Invanz/NS) 100 ml @ 200 mls/hr Q24H IVPB Last administered on 04/20/17 13:37; Admin Dose 200 MLS/HR; Start 04/19/17 at 14: 00 Acetaminophen (Tylenol Tab) 650 mg Q6H PRN PO PAIN AND OR ELEVATED TEMP Last administered on 04/20/17 22:42; Admin Dose 650 MG; Start 04/20/17 at 22:00 BRENDA PETTIT NP Apr 21, 2017 07:22
[2017-04-21] MEDS: Insulin NOVOLOG SS MODERATE Algorithm (SS with meals and bedtime) SC SCH ×4 (07:50→20:22)
[2017-04-21 07:54] VITALS: BP 97/52; RESP 18
[2017-04-21] MEDS: ASCORBIC ACID 500 MG TAB PO SCH (08:57)
[2017-04-21] MEDS: LOPERAMIDE 2 MG CAP PO SCH ×3 (08:57→20:23)
[2017-04-21] MEDS: HEPARIN 5,000 UNIT/0.5 ML VIAL SC SCH (09:02)
[2017-04-21] MEDS: ZINC SULFATE 220 MG CAP PO SCH (10:45)
--- NOTE | 2017-04-21 11:02 | PN ---
Date/Time of Note Date/Time of Note DATE: 04/21/17 TIME: 11:02 Assessment/Plan Lines/Catheters IV Catheter Type (from Nrs): PICC Line Tomas in Place (from Nrs): No Assessment/Plan Chief Complaint/Hosp Course 1. Multiple ostomies and ileal conduit: all ostomies pink and moist; s/p multiple Perforated viscous w small bowel proximal looped ostomy (minimum 6 month wait prior to considering attempting abdominal re-exploration); rectal discharge -continue ostomy care -continue oral feed and supplements; hopefully can wean off tpn for discharge to snf -continue local abdominal wound care-w vac -oral diet as tolerated with protein shakes and probiotics -oob/ambulate -urology consult-still pending 2. UTI (polymicrobial, complicated)pink with mucous urine -abx/antimicrobials per sensitivity -frequent bladder emptying/cath care -urology 3. Malnutrition: tolerating solid diet; spoke w stroboroma operator -continue tpn -vitamins, probiotics, and nutritional supplements -encourage supplements -calorie count; hopefully wean off tpn if able for dc to snf if unable to find snf that accepts tpn -started on antimotility agent and fish oil 4. MANA: -judicious fluids -limit nephrotoxic meds -per renal 5. Bladder cancer: s/p chemo/radiation, s/p cystoprostatectomy with urinary diversion -per oncology/urology 6. Normocytic hypochromic anemia: no overt bleed noted -monitor -transfuse as needed -further workup per medical team 7. Pelvic pain:on fentanyl patch; still with pain; ? up titrate med -pain management 8. Min temp: cxr negative -further workup if fever spikes Thank you, Problems: Subjective 24 Hr Interval Summary TPN. No fever or chills. Min pain. Min dc at times. Ostomies pink and draining. No sob, congested cough, cp, palpitations, craig, dizziness, n/v/dysuria. Exam/Review of Systems Vital Signs Vitals Vital Signs Date Time Temp Pulse Resp B/P Pulse Ox O2 Delivery O2 Flow Rate FiO2 04/21/17 07:54 98.3 77 18 97/52 98 Intake and Output 04/20/17 04/20/17 04/21/17 15:00 23:00 07:00 Intake Total 540 ml 1190 ml 1200 ml Output Total 1500 ml 2200 ml Balance 540 ml -310 ml -1000 ml Exam Free Text/Dictation Constitutional: alert, frail, oriented Psych: nl mood/affect Head: atraumatic, normocephalic Eyes: nl lids, nl sclera ENMT: mucosa pink and moist, nl nasal mucosa & septum Neck: non-tender, supple Respiratory: normal air movement Cardiovascular: nl pulses, regular rate and rhythm Gastrointestinal: non-tender, other (ileostomy, colostomy, urostomy- output yellow cloudy-all ostomies pink and moist), soft, wound scan drainage, no erythema Genitourinary - Male: nl penis, nl scrotum; ileal conduit with mucous/sediment output Musculoskeletal: nl extremities to inspection, nl gait and stance Extremities: normal pulses, No edema Neurological: nl mental status, nl speech Skin: nl turgor, rash or lesions; lower abdomen wound; redness/irritation around ostomies Results Result Diagram: 04/21/17 0447 04/21/17 0447 OPAL CRUZ MD Apr 21, 2017 11:02
--- NOTE | 2017-04-21 11:58 | CONS ---
Date/Time of Note Date/Time of Note DATE: 04/21/17 TIME: 11:57 Consult Date/Type/Reason Admit Date/Time Mar 30, 2017 at 02:24 Initial Consult Date 04/01/17 Type of Consultation: ID Ordering Provider: ALLISON HAYWARD Objective Vital Signs Date Time Temp Pulse Resp B/P Pulse Ox O2 Delivery O2 Flow Rate FiO2 04/21/17 07:54 98.3 77 18 97/52 98 Intake and Output 04/20/17 04/20/17 04/21/17 15:00 23:00 07:00 Intake Total 540 ml 1190 ml 1200 ml Output Total 1500 ml 2200 ml Balance 540 ml -310 ml -1000 ml Results/Medications Result Diagram: 04/21/17 0447 04/21/17 0447 Results 24 hrs Laboratory Tests Test 04/20/17 12:25 04/20/17 18:19 04/20/17 20:29 04/21/17 04:47 Bedside Glucose 123 142 107 White Blood Count 5.2 # Red Blood Count 4.16 #L Hemoglobin 11.8 #L Hematocrit 36.4 #L Mean Corpuscular Volume 87.5 Mean Corpuscular Hemoglobin 28.4 L Mean Corpuscular Hemoglobin Concent 32.4 Red Cell Distribution Width 14.6 H Platelet Count 199 # Mean Platelet Volume 9.6 Neutrophils % 68.0 Lymphocytes % 20.7 Monocytes % 9.3 Eosinophils % 1.2 Basophils % 0.2 Nucleated Red Blood Cells % 0.0 Neutrophils # 3.5 Lymphocytes # 1.1 Monocytes # 0.5 Eosinophils # 0.1 Basophils # 0.0 Nucleated Red Blood Cells # 0.0 Sodium Level 140 Potassium Level 4.5 Chloride Level 112 H Carbon Dioxide Level 17 L Anion Gap 16 Blood Urea Nitrogen 54 H Creatinine 1.79 H Glucose Level 111 Calcium Level 9.4 Phosphorus Level 3.6 Magnesium Level 2.1 Test 04/21/17 08:56 Bedside Glucose 118 Medications Current Medications Ondansetron HCl (Zofran Inj) 4 mg Q6H PRN IV NAUSEA AND/OR VOMITING Last administered on 04/21/17 05:33; Admin Dose 4 MG; Start 03/30/17 at 03:30 Heparin Sodium (Porcine) (Heparin (5000 Units/0.5 ml)) 5,000 unit DAILY SC Last administered on 04/21/17 09:02; Admin Dose 5,000 UNIT; Start 03/30/17 at 09:00 Oxycodone/ Acetaminophen 1 tab 1 tab Q4H PRN PO PAIN Last administered on 04/20 08:55; Admin Dose 1 TAB; Start 03/30/17 at 06:00 Total Parenteral Nutrition (Tpn) 1,000 ml @ 70 mls/hr [id number] IV Last administered on 04/21/17 02:24; Admin Dose 70 MLS/HR; Start 03/31/17 at 15:00 Insulin Glargine (Lantus) 10 unit HS SC Last administered on 04/20/17 20:37; Admin Dose 10 UNIT; Start 04/01/17 at 21:00 Miscellaneous Information 1 ea NOTE XX ; Start 03/31/17 at 21:00 Glucose (Glutose) 15 gm Q15M PRN PO DECREASED GLUCOSE; Start 03/31/17 at 21:00 Glucose (Glutose) 22.5 gm Q15M PRN PO DECREASED GLUCOSE; Start 03/31/17 at 21: 00 Dextrose (D50w Syringe) 25 ml Q15M PRN IV DECREASED GLUCOSE; Start 03/31/17 at 21:00 Dextrose (D50w Syringe) 50 ml Q15M PRN IV DECREASED GLUCOSE; Start 03/31/17 at 21:00 Glucagon (Glucagen) 1 mg Q15M PRN IM DECREASED GLUCOSE; Start 03/31/17 at 21: 00 Glucose (Glutose) 15 gm Q15M PRN BUCCAL DECREASED GLUCOSE; Start 03/31/17 at 21:00 Diagnostic Test (Pha) (Accu-Chek) 1 ea 02 XX ; Start 04/06/17 at 02:00 Ascorbic Acid (Vitamin C) 500 mg DAILY PO Last administered on 04/21/17 08:57 ; Admin Dose 500 MG; Start 04/11/17 at 09:00 Zinc Sulfate (Zinc Sulfate) 220 mg DAILY PO Last administered on 04/21/17 10: 45; Admin Dose 220 MG; Start 04/11/17 at 09:00 Fentanyl (Duragesic 25 Mcg/Hr Patch) 1 patch Q3D TRANSDERM Last administered on 04/20/17 18:25; Admin Dose 1 PATCH; Start 04/11/17 at 17:00 Loperamide HCl (Imodium Cap) 2 mg TID PO Last administered on 04/21/17 08:57 ; Admin Dose 2 MG; Start 04/15/17 at 13:00 Nystatin 1 applic 1 applic PRN TOP Last administered on 04/19/17 13:17; Admin Dose 1 APPLIC; Start 04/16/17 at 16:30 Ertapenem/Sodium Chloride (Invanz/NS) 100 ml @ 200 mls/hr Q24H IVPB Last administered on 04/20/17 13:37; Admin Dose 200 MLS/HR; Start 04/19/17 at 14: 00 Acetaminophen (Tylenol Tab) 650 mg Q6H PRN PO PAIN AND OR ELEVATED TEMP Last administered on 04/20/17 22:42; Admin Dose 650 MG; Start 04/20/17 at 22:00 Assessment/Plan Chief Complaint/Hosp Course SUBJECTIVE: The patient is alert, looks comfortable, no fevers, no n/v MICROBIOLOGY: Urine culture on admission grew Escherichia coli extended- spectrum beta-lactamase and Enterococcus species===> s/p Merrem and Zyvox. Repeat urine cx + E coli ESBL/Stenotrophomonas Abx: Invanz PHYSICAL EXAMINATION: GENERAL: This is a cachectic, chronically ill-appearing, elderly man who is in no distress. HEENT: Head atraumatic, normocephalic. Sclerae anicteric. NECK: Supple. CHEST: Rise symmetrical. Breath sounds diminished to bases. HEART: S1, S2. ABDOMEN: Soft, bowel tones present. EXTREMITIES: Without cyanosis. ASSESSMENT: 1. SIRS with low grade temps 2 to recurrent urinary tract infection. 2. History of bladder and prostate cancer, status post chemoradiation and cystoprostatectomy with urinary diversion and ileostomy conduit. 3. History of perforated viscus repair and multiple pelvic abscess pseudocyst drainages. 4. Acute kidney failure with a history of obstructive uropathy with bilateral JJ stent placement. 5. Cachexia. PLAN: The patient remains stable. Continue Invanz add Levaquin and probiotics, continue present care DW pt/RN Problems: KING MARQUES NP Apr 21, 2017 11:58
[2017-04-21] MEDS ORDERED: LEVOFLOXACIN 500 MG TAB PO ONE (12:00)
[2017-04-21] MEDS: OXYCODONE/ACETAMINOPHEN (5/325) TAB PO PRN ×2 (12:46→20:23)
[2017-04-21] MEDS: ERTAPENEM SODIUM 1 GM in SOD CHLORIDE 0.9% 100 ML IVPB SCH (13:45)
[2017-04-21 15:22] VITALS: BP 89/50; RESP 18
--- NOTE | 2017-04-21 16:56 | CONS ---
Date/Time of Note Date/Time of Note DATE: 04/21/17 TIME: 16:54 Assessment/Plan Assessment/Plan Additional Assessment/Plan 1. acute kidney injury Non oliguric . 2. H/o ESBL UTI 3.history of bladder cancer s/p TURBT, chemotherapy/radiation, urethral damage, chemo/radiation induced urinary and fecal incontinence. He underwent cystoprostatectomy with urinary diversion, ileal conduit, colonic diversion for fistula on last admission Plan: -Off abx now -on TPN -cr stable-1.79- s/p IVF hydration , will follow up on Cr and electrolytes -will continue to follow up Consultation Date/Type/Reason Admit Date/Time Mar 30, 2017 at 02:24 Initial Consult Date 03/30/17 Type of Consultation: NEPHROLOGY Referring Provider: ALLISON HAYWARD 24 HR Interval Summary Free Text/Dictation Cr 1.79, BP stable Exam/Review of Systems Vital Signs Vitals Vital Signs Date Time Temp Pulse Resp B/P Pulse Ox O2 Delivery O2 Flow Rate FiO2 04/21/17 15:22 98.5 69 18 89/50 97 Intake and Output 04/20/17 04/20/17 04/21/17 15:00 23:00 07:00 Intake Total 540 ml 1190 ml 1200 ml Output Total 1500 ml 2200 ml Balance 540 ml -310 ml -1000 ml Exam Constitutional: weak. No acute distress. He is cachectic) Head: atraumatic, normocephalic Eyes: EOMI, PERRL Respiratory: clear to auscultation, normal air movement Cardiovascular: nl pulses, regular rate and rhythm Gastrointestinal: other (Scaphoid abdomen. Urostomy, colostomy and ileal conduit) Extremities: normal pulses + PICC line in place , on TPN Results Result Diagram: 04/21/17 0447 04/21/17 0447 Results 24 hrs Laboratory Tests Test 04/20/17 18:19 04/20/17 20:29 04/21/17 04:47 04/21/17 08:56 Bedside Glucose 142 107 118 White Blood Count 5.2 # Red Blood Count 4.16 #L Hemoglobin 11.8 #L Hematocrit 36.4 #L Mean Corpuscular Volume 87.5 Mean Corpuscular Hemoglobin 28.4 L Mean Corpuscular Hemoglobin Concent 32.4 Red Cell Distribution Width 14.6 H Platelet Count 199 # Mean Platelet Volume 9.6 Neutrophils % 68.0 Lymphocytes % 20.7 Monocytes % 9.3 Eosinophils % 1.2 Basophils % 0.2 Nucleated Red Blood Cells % 0.0 Neutrophils # 3.5 Lymphocytes # 1.1 Monocytes # 0.5 Eosinophils # 0.1 Basophils # 0.0 Nucleated Red Blood Cells # 0.0 Sodium Level 140 Potassium Level 4.5 Chloride Level 112 H Carbon Dioxide Level 17 L Anion Gap 16 Blood Urea Nitrogen 54 H Creatinine 1.79 H Glucose Level 111 Calcium Level 9.4 Phosphorus Level 3.6 Magnesium Level 2.1 Test 04/21/17 12:42 Bedside Glucose 114 Medications Medications Current Medications Ondansetron HCl (Zofran Inj) 4 mg Q6H PRN IV NAUSEA AND/OR VOMITING Last administered on 04/21/17 12:46; Admin Dose 4 MG; Start 03/30/17 at 03:30 Heparin Sodium (Porcine) (Heparin (5000 Units/0.5 ml)) 5,000 unit DAILY SC Last administered on 04/21/17 09:02; Admin Dose 5,000 UNIT; Start 03/30/17 at 09:00 Oxycodone/ Acetaminophen 1 tab 1 tab Q4H PRN PO PAIN Last administered on 04/21 12:46; Admin Dose 1 TAB; Start 03/30/17 at 06:00 Total Parenteral Nutrition (Tpn) 1,000 ml @ 70 mls/hr [id number] IV Last administered on 04/21/17 16:42; Admin Dose 70 MLS/HR; Start 03/31/17 at 15:00 Insulin Glargine (Lantus) 10 unit HS SC Last administered on 04/20/17 20:37; Admin Dose 10 UNIT; Start 04/01/17 at 21:00 Miscellaneous Information 1 ea NOTE XX ; Start 03/31/17 at 21:00 Glucose (Glutose) 15 gm Q15M PRN PO DECREASED GLUCOSE; Start 03/31/17 at 21:00 Glucose (Glutose) 22.5 gm Q15M PRN PO DECREASED GLUCOSE; Start 03/31/17 at 21: 00 Dextrose (D50w Syringe) 25 ml Q15M PRN IV DECREASED GLUCOSE; Start 03/31/17 at 21:00 Dextrose (D50w Syringe) 50 ml Q15M PRN IV DECREASED GLUCOSE; Start 03/31/17 at 21:00 Glucagon (Glucagen) 1 mg Q15M PRN IM DECREASED GLUCOSE; Start 03/31/17 at 21: 00 Glucose (Glutose) 15 gm Q15M PRN BUCCAL DECREASED GLUCOSE; Start 03/31/17 at 21:00 Diagnostic Test (Pha) (Accu-Chek) 1 ea 02 XX ; Start 04/06/17 at 02:00 Ascorbic Acid (Vitamin C) 500 mg DAILY PO Last administered on 04/21/17 08:57 ; Admin Dose 500 MG; Start 04/11/17 at 09:00 Zinc Sulfate (Zinc Sulfate) 220 mg DAILY PO Last administered on 04/21/17 10: 45; Admin Dose 220 MG; Start 04/11/17 at 09:00 Fentanyl (Duragesic 25 Mcg/Hr Patch) 1 patch Q3D TRANSDERM Last administered on 04/20/17 18:25; Admin Dose 1 PATCH; Start 04/11/17 at 17:00 Loperamide HCl (Imodium Cap) 2 mg TID PO Last administered on 04/21/17 12:46 ; Admin Dose 2 MG; Start 04/15/17 at 13:00 Nystatin 1 applic 1 applic PRN TOP Last administered on 04/19/17 13:17; Admin Dose 1 APPLIC; Start 04/16/17 at 16:30 Ertapenem/Sodium Chloride (Invanz/NS) 100 ml @ 200 mls/hr Q24H IVPB Last administered on 04/21/17 13:45; Admin Dose 200 MLS/HR; Start 04/19/17 at 14: 00 Acetaminophen (Tylenol Tab) 650 mg Q6H PRN PO PAIN AND OR ELEVATED TEMP Last administered on 04/20/17 22:42; Admin Dose 650 MG; Start 04/20/17 at 22:00 Levofloxacin (Levaquin) 500 mg DAILY@06 PO ; Start 04/22/17 at 06:00 Lactobacillus Acidophilus (Florajen3 Capsule) 1 each BID PO ; Start 04/21/17 at 21:00 MARGOT WOMACK MD Apr 21, 2017 16:56
[2017-04-21 20:07] VITALS: BP 92/54; RESP 20
[2017-04-21] MEDS: L ACIDOPHIL/B LACTIS/B LONGUM CAPSULE PO SCH (20:23)
[2017-04-21] MEDS: INSULIN GLARGINE [LANtus] 3 ML PEN SC SCH (20:28)
[2017-04-22] MEDS: ACCUCHECK AT 2AM (Patients on SS coverage) XX SCH (02:00)
[2017-04-22 05:16] LABS: BASOPHILS % 0.1 % (0.0-2.0); EOSINOPHILS # 0.1 10^3/ul (0.0-0.5); EOSINOPHILS % 1.1 % (0.0-7.0); HEMATOCRIT 28.5 % (42.0-52.0); HEMOGLOBIN 9.1 g/dl (14.0-18.0); LYMPHOCYTES # 1.3 10^3/ul (0.8-2.9); LYMPHOCYTES % 16.6 % (15.0-51.0); MEAN CORPUSCULAR HEMOGLOBIN 28.3 pg (29.0-33.0); MEAN CORPUSCULAR HGB CONC 31.9 g/dl (32.0-37.0); MEAN CORPUSCULAR VOLUME 88.5 fl (82.0-101.0); MEAN PLATELET VOLUME 9.3 fl (7.4-10.4); MONOCYTE # 0.7 10^3/ul (0.3-0.9); NEUTROPHIL # 5.8 10^3/ul (1.6-7.5); NEUTROPHILS % 72.5 % (39.0-77.0); PLATELET COUNT 299 10^3/UL (140-415); RED BLOOD COUNT 3.22 10^6/ul (4.70-6.10); RED CELL DISTRIBUTION WIDTH 14.8 % (11.5-14.5)
[2017-04-22 05:39] LABS: CALCIUM 9.8 mg/dl (8.4-10.2); CREATININE 1.88 mg/dl (0.61-1.24); POTASSIUM 4.6 mmol/L (3.5-5.1)
[2017-04-22 05:46] LABS: MAGNESIUM 2.1 mg/dl (1.7-2.5); PHOSPHORUS 3.4 mg/dl (2.5-4.9)
[2017-04-22] MEDS: LEVOFLOXACIN 500 MG TAB PO SCH (06:26)
[2017-04-22] MEDS: TPN 1,000 ML IV SCH ×2 (06:26→22:51)
[2017-04-22 07:38] VITALS: BP 98/54; PULSE 14; PULSE 76; RESP 21
[2017-04-22] MEDS: Insulin NOVOLOG SS MODERATE Algorithm (SS with meals and bedtime) SC SCH ×4 (07:50→21:00)
[2017-04-22] MEDS: OXYCODONE/ACETAMINOPHEN (5/325) TAB PO PRN ×3 (07:57→21:35)
[2017-04-22] MEDS: HEPARIN 5,000 UNIT/0.5 ML VIAL SC SCH (09:37)
--- NOTE | 2017-04-22 09:50 | PN ---
Date/Time of Note Date/Time of Note DATE: 04/22/17 TIME: 09:48 Assessment/Plan VTE Prophylaxis VTE Prophylaxis Intervention: heparin Lines/Catheters IV Catheter Type (from [facility]): PICC Line Central line still needed: Yes Urinary Cath still in place: No Assessment/Plan Chief Complaint/Hosp Course 1. Complicated urinary tract infection with polymicrobial's including E. coli ESBL. Status post antimicrobials as per infectious diseases. Repeat urine cultures also showing ESBL. Therefore, the patient was started on carbapenems. 2. Acute nonoliguric kidney injury. Etiology unclear. The patient being followed by nephrology. Use nephrotoxic drugs with caution. 3. Bladder cancer. Status post radical cystoprostatectomy and creation of ileal conduit with colonic diversion for fistula formation. To be evaluated by Urology. 4. Status post perforated viscus repair complicated by intra-abdominal abscess requiring CT-guided drainage on previous admission. The patient has an abdominal wound vac in place. Being followed by surgery. 5. Severe protein calorie malnutrition. Patient on TPN. The patient on a mechanical soft diet. 6. Normocytic anemia. Etiology unclear. Probably anemia of chronic disease. 7. Fluids, electrolytes, and nutrition. TPN. Mechanical soft diet. 8. DVT prophylaxis. Subcutaneous heparin. 9. Plan. Continue antimicrobials as per ID. Await urology input. Checked with surgery. Surgery recommending to continue TPN until the patient has adequate calorie intake and absorption. Had a conversation with the patient's daughter. The patient's daughter is requesting surgical consult from a second surgeon ( Dr. Rich specifically) for a second opinion. This was presented with the patient's current surgeon who said it is OK to have a second opinion. Called Dr. Rich's office and informed about the patient's family request. Operative report from January 05, [address] Rich's office. Talked to the front office staff Janel. Case discussed with Dr. Baez. Problems: Subjective 24 Hr Interval Summary Free Text/Dictation The patient remains afebrile. Exam/Review of Systems Vital Signs Vitals Vital Signs Date Time Temp Pulse Resp B/P Pulse Ox O2 Delivery O2 Flow Rate FiO2 04/22/17 07:38 98.5 76 21 98/54 99 Room Air Intake and Output 04/21/17 04/21/17 04/22/17 15:00 23:00 07:00 Intake Total 100 ml 1265 ml 1700 ml Output Total 3100 ml 2500 ml Balance 100 ml -1835 ml -800 ml Exam General:, Thin, frail looking 66 year-old male lying in bed in no apparent distress. HEENT: Normocephalic, atraumatic. Eyes: Anicteric sclerae, conjunctivae clear. ENT: Nasal septum midline, oral mucosa moist. Neck supple, no JVD noticed. Respiratory: Bilaterally diminished breath sounds. No use of accessory muscles of respiration. No adventitious breath sounds. Cardiovascular: S1, S2 heard. No murmurs or gallops. Abdomen: Soft, nontender, and nondistended. Abdominal wall wound Vac. Ileostomy draining light brown liquid output (less amount). Colostomy pink bud moist. Ileal conduit. Genitourinary: Deferred. Extremities: No cyanosis, no clubbing, no edema. Peripheral pulses palpable. Neurologic: Cranial nerves II through XII grossly intact. The patient is awake, alert, and oriented. Skin: Normal skin turgor. No skin rashes. Results Result Diagram: 04/22/17 0438 04/22/17 0438 Results 24 hrs Laboratory Tests Test 04/21/17 12:42 04/21/17 17:53 04/21/17 20:21 04/22/17 02:44 Bedside Glucose 114 125 114 115 Test 04/22/17 04:38 04/22/17 08:13 White Blood Count 8.0 # Red Blood Count 3.22 #L Hemoglobin 9.1 #L Hematocrit 28.5 #L Mean Corpuscular Volume 88.5 Mean Corpuscular Hemoglobin 28.3 L Mean Corpuscular Hemoglobin Concent 31.9 L Red Cell Distribution Width 14.8 H Platelet Count 299 # Mean Platelet Volume 9.3 Neutrophils % 72.5 Lymphocytes % 16.6 Monocytes % 9.0 Eosinophils % 1.1 Basophils % 0.1 Nucleated Red Blood Cells % 0.0 Neutrophils # 5.8 Lymphocytes # 1.3 Monocytes # 0.7 Eosinophils # 0.1 Basophils # 0.0 Nucleated Red Blood Cells # 0.0 Sodium Level 141 Potassium Level 4.6 Chloride Level 110 Carbon Dioxide Level 20 L Anion Gap 16 Blood Urea Nitrogen 51 H Creatinine 1.88 H Glucose Level 121 Calcium Level 9.8 Phosphorus Level 3.4 Magnesium Level 2.1 Bedside Glucose 121 Medications Medications Current Medications Ondansetron HCl (Zofran Inj) 4 mg Q6H PRN IV NAUSEA AND/OR VOMITING Last administered on 04/21/17 12:46; Admin Dose 4 MG; Start 03/30/17 at 03:30 Heparin Sodium (Porcine) (Heparin (5000 Units/0.5 ml)) 5,000 unit DAILY SC Last administered on 04/22/17 09:37; Admin Dose 5,000 UNIT; Start 03/30/17 at 09:00 Oxycodone/ Acetaminophen 1 tab 1 tab Q4H PRN PO PAIN Last administered on 04/22 07:57; Admin Dose 1 TAB; Start 03/30/17 at 06:00 Total Parenteral Nutrition (Tpn) 1,000 ml @ 70 mls/hr [id number] IV Last administered on 04/22/17 06:26; Admin Dose 70 MLS/HR; Start 03/31/17 at 15:00 Insulin Glargine (Lantus) 10 unit HS SC Last administered on 04/21/17 20:28; Admin Dose 10 UNIT; Start 04/01/17 at 21:00 Miscellaneous Information 1 ea NOTE XX ; Start 03/31/17 at 21:00 Glucose (Glutose) 15 gm Q15M PRN PO DECREASED GLUCOSE; Start 03/31/17 at 21:00 Glucose (Glutose) 22.5 gm Q15M PRN PO DECREASED GLUCOSE; Start 03/31/17 at 21: 00 Dextrose (D50w Syringe) 25 ml Q15M PRN IV DECREASED GLUCOSE; Start 03/31/17 at 21:00 Dextrose (D50w Syringe) 50 ml Q15M PRN IV DECREASED GLUCOSE; Start 03/31/17 at 21:00 Glucagon (Glucagen) 1 mg Q15M PRN IM DECREASED GLUCOSE; Start 03/31/17 at 21: 00 Glucose (Glutose) 15 gm Q15M PRN BUCCAL DECREASED GLUCOSE; Start 03/31/17 at 21:00 Diagnostic Test (Pha) (Accu-Chek) 1 ea 02 XX Last administered on 04/22/17 02 :00; Admin Dose 1 EA; Start 04/06/17 at 02:00 Ascorbic Acid (Vitamin C) 500 mg DAILY PO Last administered on 04/21/17 08:57 ; Admin Dose 500 MG; Start 04/11/17 at 09:00 Zinc Sulfate (Zinc Sulfate) 220 mg DAILY PO Last administered on 04/21/17 10: 45; Admin Dose 220 MG; Start 04/11/17 at 09:00 Fentanyl (Duragesic 25 Mcg/Hr Patch) 1 patch Q3D TRANSDERM Last administered on 04/20/17 18:25; Admin Dose 1 PATCH; Start 04/11/17 at 17:00 Loperamide HCl (Imodium Cap) 2 mg TID PO Last administered on 04/21/17 20:23 ; Admin Dose 2 MG; Start 04/15/17 at 13:00 Nystatin 1 applic 1 applic PRN TOP Last administered on 04/19/17 13:17; Admin Dose 1 APPLIC; Start 04/16/17 at 16:30 Ertapenem/Sodium Chloride (Invanz/NS) 100 ml @ 200 mls/hr Q24H IVPB Last administered on 04/21/17 13:45; Admin Dose 200 MLS/HR; Start 04/19/17 at 14: 00 Acetaminophen (Tylenol Tab) 650 mg Q6H PRN PO PAIN AND OR ELEVATED TEMP Last administered on 04/20/17 22:42; Admin Dose 650 MG; Start 04/20/17 at 22:00 Levofloxacin (Levaquin) 500 mg DAILY@06 PO Last administered on 04/22/17 06: 26; Admin Dose 500 MG; Start 04/22/17 at 06:00 Lactobacillus Acidophilus (Florajen3 Capsule) 1 each BID PO Last administered on 04/21/17 20:23; Admin Dose 1 EACH; Start 04/21/17 at 21:00 BRENDA PETTIT NP Apr 22, 2017 09:50
[2017-04-22] MEDS: LOPERAMIDE 2 MG CAP PO SCH ×3 (09:51→20:55)
[2017-04-22] MEDS: ZINC SULFATE 220 MG CAP PO SCH (09:51)
[2017-04-22] MEDS: L ACIDOPHIL/B LACTIS/B LONGUM CAPSULE PO SCH ×2 (09:51→20:55)
[2017-04-22] MEDS: ASCORBIC ACID 500 MG TAB PO SCH (09:51)
--- NOTE | 2017-04-22 11:23 | PN ---
Date/Time of Note Date/Time of Note DATE: 04/22/17 TIME: 11:09 Assessment/Plan Lines/Catheters IV Catheter Type (from Nrs): PICC Line Tomas in Place (from Nrs): No Assessment/Plan Chief Complaint/Hosp Course 1. Multiple ostomies and ileal conduit: all ostomies pink and moist; s/p multiple Perforated viscous w small bowel proximal looped ostomy (minimum 6 month wait prior to considering attempting abdominal re-exploration); rectal discharge; 2nd opinion surgical consult -continue ostomy care -continue oral feed and supplements; hopefully can wean off tpn for discharge to snf -continue local abdominal wound care-w vac -oral diet as tolerated with protein shakes and probiotics -oob/ambulate -urology consult-still pending 2. UTI (polymicrobial, complicated)pink with mucous urine, cultures noted -abx/antimicrobials per sensitivity -frequent bladder emptying/cath care -urology 3. Malnutrition: tolerating solid diet;refusing supplements -continue tpn -vitamins, probiotics, and nutritional supplements -encourage supplements -calorie count; hopefully wean off tpn if able for dc to snf if unable to find snf that accepts tpn -started on antimotility agent and fish oil 4. MANA: worse today -judicious fluids -limit nephrotoxic meds -per renal 5. Bladder cancer: s/p chemo/radiation, s/p cystoprostatectomy with urinary diversion -per oncology/urology 6. Normocytic hypochromic anemia: no overt bleed noted -monitor -transfuse as needed -further workup per medical team 7. Pelvic pain:on fentanyl patch; still with pain; ? up titrate med -pain management 8. Min temp: cxr negative -further workup if fever spikes Thank you. Patient seen and examined in collaboration with Dr. Bagn Ross Problems: Subjective 24 Hr Interval Summary Requesting second surgical opinion. Continues to have pelvic pain. Not taking any of the recommended supplements. Weight fluctuating. No fevers, chills, sob, congested cough, cp, palpitations, craig, dizziness, n/v/d/dysuria. Exam/Review of Systems Vital Signs Vitals Vital Signs Date Time Temp Pulse Resp B/P Pulse Ox O2 Delivery O2 Flow Rate FiO2 04/22/17 07:38 98.5 76 21 98/54 99 Room Air Intake and Output 04/21/17 04/21/17 04/22/17 15:00 23:00 07:00 Intake Total 100 ml 1265 ml 1700 ml Output Total 3100 ml 2500 ml Balance 100 ml -1835 ml -800 ml Exam Free Text/Dictation Constitutional: alert, frail, oriented Psych: min anxious Head: atraumatic, normocephalic Eyes: nl lids, nl sclera ENMT: mucosa pink and moist, nl nasal mucosa & septum Neck: non-tender, supple Respiratory: normal air movement Cardiovascular: nl pulses, regular rate and rhythm Gastrointestinal: non-tender, other (ileostomy, colostomy, urostomy- output yellow cloudy-all ostomies pink and moist), soft, wound scan drainage, no erythema Genitourinary - Male: nl penis, nl scrotum; ileal conduit with mucous/sediment output Musculoskeletal: nl extremities to inspection, nl gait and stance Extremities: normal pulses, No edema Neurological: nl mental status, nl speech Skin: nl turgor, rash or lesions; lower abdomen wound; redness/irritation around ostomies Results Result Diagram: 04/22/17 0438 04/22/17 0438 IFTIKHAR ROBERTSON NP Apr 22, 2017 11:20
[2017-04-22] MEDS: ONDANSETRON 4 MG INJ IV PRN ×2 (12:25→17:37)
[2017-04-22] MEDS: ERTAPENEM SODIUM 1 GM in SOD CHLORIDE 0.9% 100 ML IVPB SCH (13:42)
--- NOTE | 2017-04-22 14:26 | CONS ---
Date/Time of Note Date/Time of Note DATE: 04/22/17 TIME: 14:25 Assessment/Plan Assessment/Plan Additional Assessment/Plan 1. acute kidney injury Non oliguric . 2. H/o ESBL UTI 3.history of bladder cancer s/p TURBT, chemotherapy/radiation, urethral damage, chemo/radiation induced urinary and fecal incontinence. He underwent cystoprostatectomy with urinary diversion, ileal conduit, colonic diversion for fistula on last admission Plan: -Off abx now -on TPN -cr stable-1.88- s/p IVF hydration , will follow up on Cr and electrolytes - if continues to rise Cr then we will give IVF NS -will continue to follow up Consultation Date/Type/Reason Admit Date/Time Mar 30, 2017 at 02:24 Initial Consult Date 03/30/17 Type of Consultation: NEPHROLOGY Referring Provider: ALLISON HAYWARD 24 HR Interval Summary Free Text/Dictation Cr 1.88 Exam/Review of Systems Vital Signs Vitals Vital Signs Date Time Temp Pulse Resp B/P Pulse Ox O2 Delivery O2 Flow Rate FiO2 04/22/17 07:38 98.5 76 21 98/54 99 Room Air Intake and Output 04/21/17 04/21/17 04/22/17 14:59 22:59 06:59 Intake Total 100 ml 1265 ml 1700 ml Output Total 3100 ml 2500 ml Balance 100 ml -1835 ml -800 ml Exam Constitutional: weak. No acute distress. He is cachectic) Head: atraumatic, normocephalic Eyes: EOMI, PERRL Respiratory: clear to auscultation, normal air movement Cardiovascular: nl pulses, regular rate and rhythm Gastrointestinal: other (Scaphoid abdomen. Urostomy, colostomy and ileal conduit) Extremities: normal pulses + PICC line in place , on TPN Results Result Diagram: 04/22/17 0438 04/22/17 0438 Results 24 hrs Laboratory Tests Test 04/21/17 17:53 04/21/17 20:21 04/22/17 02:44 04/22/17 04:38 Bedside Glucose 125 114 115 White Blood Count 8.0 # Red Blood Count 3.22 #L Hemoglobin 9.1 #L Hematocrit 28.5 #L Mean Corpuscular Volume 88.5 Mean Corpuscular Hemoglobin 28.3 L Mean Corpuscular Hemoglobin Concent 31.9 L Red Cell Distribution Width 14.8 H Platelet Count 299 # Mean Platelet Volume 9.3 Neutrophils % 72.5 Lymphocytes % 16.6 Monocytes % 9.0 Eosinophils % 1.1 Basophils % 0.1 Nucleated Red Blood Cells % 0.0 Neutrophils # 5.8 Lymphocytes # 1.3 Monocytes # 0.7 Eosinophils # 0.1 Basophils # 0.0 Nucleated Red Blood Cells # 0.0 Sodium Level 141 Potassium Level 4.6 Chloride Level 110 Carbon Dioxide Level 20 L Anion Gap 16 Blood Urea Nitrogen 51 H Creatinine 1.88 H Glucose Level 121 Calcium Level 9.8 Phosphorus Level 3.4 Magnesium Level 2.1 Test 04/22/17 08:13 04/22/17 11:46 Bedside Glucose 121 142 Medications Medications Current Medications Ondansetron HCl (Zofran Inj) 4 mg Q6H PRN IV NAUSEA AND/OR VOMITING Last administered on 04/22/17 12:25; Admin Dose 4 MG; Start 03/30/17 at 03:30 Heparin Sodium (Porcine) (Heparin (5000 Units/0.5 ml)) 5,000 unit DAILY SC Last administered on 04/22/17 09:37; Admin Dose 5,000 UNIT; Start 03/30/17 at 09:00 Oxycodone/ Acetaminophen 1 tab 1 tab Q4H PRN PO PAIN Last administered on 04/22 12:24; Admin Dose 1 TAB; Start 03/30/17 at 06:00 Total Parenteral Nutrition (Tpn) 1,000 ml @ 70 mls/hr [id number] IV Last administered on 04/22/17 06:26; Admin Dose 70 MLS/HR; Start 03/31/17 at 15:00 Insulin Glargine (Lantus) 10 unit HS SC Last administered on 04/21/17 20:28; Admin Dose 10 UNIT; Start 04/01/17 at 21:00 Miscellaneous Information 1 ea NOTE XX ; Start 03/31/17 at 21:00 Glucose (Glutose) 15 gm Q15M PRN PO DECREASED GLUCOSE; Start 03/31/17 at 21:00 Glucose (Glutose) 22.5 gm Q15M PRN PO DECREASED GLUCOSE; Start 03/31/17 at 21: 00 Dextrose (D50w Syringe) 25 ml Q15M PRN IV DECREASED GLUCOSE; Start 03/31/17 at 21:00 Dextrose (D50w Syringe) 50 ml Q15M PRN IV DECREASED GLUCOSE; Start 03/31/17 at 21:00 Glucagon (Glucagen) 1 mg Q15M PRN IM DECREASED GLUCOSE; Start 03/31/17 at 21: 00 Glucose (Glutose) 15 gm Q15M PRN BUCCAL DECREASED GLUCOSE; Start 03/31/17 at 21:00 Diagnostic Test (Pha) (Accu-Chek) 1 ea 02 XX Last administered on 04/22/17 02 :00; Admin Dose 1 EA; Start 04/06/17 at 02:00 Ascorbic Acid (Vitamin C) 500 mg DAILY PO Last administered on 04/22/17 09:51 ; Admin Dose 500 MG; Start 04/11/17 at 09:00 Zinc Sulfate (Zinc Sulfate) 220 mg DAILY PO Last administered on 04/22/17 09: 51; Admin Dose 220 MG; Start 04/11/17 at 09:00 Fentanyl (Duragesic 25 Mcg/Hr Patch) 1 patch Q3D TRANSDERM Last administered on 04/20/17 18:25; Admin Dose 1 PATCH; Start 04/11/17 at 17:00 Loperamide HCl (Imodium Cap) 2 mg TID PO Last administered on 04/22/17 12:24 ; Admin Dose 2 MG; Start 04/15/17 at 13:00 Nystatin 1 applic 1 applic PRN TOP Last administered on 04/19/17 13:17; Admin Dose 1 APPLIC; Start 04/16/17 at 16:30 Ertapenem/Sodium Chloride (Invanz/NS) 100 ml @ 200 mls/hr Q24H IVPB Last administered on 04/22/17 13:42; Admin Dose 200 MLS/HR; Start 04/19/17 at 14: 00 Acetaminophen (Tylenol Tab) 650 mg Q6H PRN PO PAIN AND OR ELEVATED TEMP Last administered on 04/20/17 22:42; Admin Dose 650 MG; Start 04/20/17 at 22:00 Levofloxacin (Levaquin) 500 mg DAILY@06 PO Last administered on 04/22/17 06: 26; Admin Dose 500 MG; Start 04/22/17 at 06:00 Lactobacillus Acidophilus (Florajen3 Capsule) 1 each BID PO Last administered on 04/22/17 09:51; Admin Dose 1 EACH; Start 04/21/17 at 21:00 MARGOT WOMACK MD Apr 22, 2017 14:26
[2017-04-22 16:16] VITALS: BP 98/60; PULSE 73; RESP 20
[2017-04-22 19:30] VITALS: BP 107/57; RESP 16
[2017-04-22] MEDS: INSULIN GLARGINE [LANtus] 3 ML PEN SC SCH (20:58)
[2017-04-23] MEDS: ACCUCHECK AT 2AM (Patients on SS coverage) XX SCH (02:00)
[2017-04-23 02:22] VITALS: BP 100/55; RESP 18
[2017-04-23] MEDS: OXYCODONE/ACETAMINOPHEN (5/325) TAB PO PRN ×5 (05:30→22:17)
[2017-04-23] MEDS: ONDANSETRON 4 MG INJ IV PRN ×3 (05:30→22:21)
[2017-04-23] MEDS: LEVOFLOXACIN 500 MG TAB PO SCH (05:30)
--- NOTE | 2017-04-23 05:31 | PN ---
DATE: 04/22/2017 SUBJECTIVE: No acute changes overnight. The patient is awake, looks comfortable, no fevers overnig ht. WBC 8, no shift, no bands. BUN 51, creatinine 1.88. ANTIMICROBIALS: Levofloxacin, Invanz. MICROBIOLOGY: Repeat urine culture on 04/18/2017 grew E. coli ESBL and Stenotrophomonas maltophilia . PHYSICAL EXAMINATION: GENERAL: This is a cachectic, chronically ill-appearing, elderly, [place] man who is awake, in no d istress. HEENT: Head atraumatic, normocephalic. Sclerae anicteric. Buccal mucosa dry. NECK: Supple. CHEST: Rise symmetrical. Breath sounds clear. HEART: S1, S2. ABDOMEN: Soft. Bowel tones present. ASSESSMENT: 1. Recurrent urinary tract infection. 2. History of bladder and prostate cancer, status post chemoradiation, cystoprostatectomy with urin nela diversion and ileostomy conduit. 3. History of perforated viscus repair. 4. Acute renal failure. 5. Cachexia. 6. History of obstructive uropathy, status post bilateral JJ stent placement. PLAN: The patient remains stable. Continue present care, antibiotics. Follow recommendations of s pecialists. Dictated By: KING MARQUES CURING OVEN TENDER for TREVOR JOHNSON MD NI/NTS Conf#: [id number] DID#: [id number] CC: ISIDORO LÓPEZ MD;*EndCC*
[2017-04-23 05:34] LABS: BASOPHILS % 0.3 % (0.0-2.0); EOSINOPHILS # 0.1 10^3/ul (0.0-0.5); EOSINOPHILS % 1.7 % (0.0-7.0); HEMATOCRIT 28.1 % (42.0-52.0); HEMOGLOBIN 9.2 g/dl (14.0-18.0); LYMPHOCYTES # 1.6 10^3/ul (0.8-2.9); LYMPHOCYTES % 22.4 % (15.0-51.0); MEAN CORPUSCULAR HEMOGLOBIN 28.1 pg (29.0-33.0); MEAN CORPUSCULAR HGB CONC 32.7 g/dl (32.0-37.0); MEAN CORPUSCULAR VOLUME 85.9 fl (82.0-101.0); MEAN PLATELET VOLUME 9.5 fl (7.4-10.4); MONOCYTE # 0.8 10^3/ul (0.3-0.9); MONOCYTES % 11.1 % (0.0-11.0); NEUTROPHIL # 4.4 10^3/ul (1.6-7.5); NEUTROPHILS % 63.2 % (39.0-77.0); PLATELET COUNT 313 10^3/UL (140-415); RED BLOOD COUNT 3.27 10^6/ul (4.70-6.10); RED CELL DISTRIBUTION WIDTH 14.9 % (11.5-14.5)
[2017-04-23 06:02] LABS: MAGNESIUM 2.1 mg/dl (1.7-2.5); PHOSPHORUS 3.5 mg/dl (2.5-4.9)
[2017-04-23 06:08] LABS: ALBUMIN 3.4 g/dl (3.3-4.9); ALBUMIN/GLOBULIN RATIO 0.82; CALCIUM 10.2 mg/dl (8.4-10.2); CREATININE 2.15 mg/dl (0.61-1.24); POTASSIUM 4.4 mmol/L (3.5-5.1); TOTAL PROTEIN 7.5 g/dl (6.1-8.1)
[2017-04-23 07:17] VITALS: BP 99/57; PULSE 65; RESP 18
[2017-04-23] MEDS: Insulin NOVOLOG SS MODERATE Algorithm (SS with meals and bedtime) SC SCH ×4 (07:50→21:00)
[2017-04-23] MEDS: LOPERAMIDE 2 MG CAP PO SCH ×3 (08:15→21:23)
[2017-04-23] MEDS: ZINC SULFATE 220 MG CAP PO SCH (08:15)
[2017-04-23] MEDS: ASCORBIC ACID 500 MG TAB PO SCH (08:15)
[2017-04-23] MEDS: HEPARIN 5,000 UNIT/0.5 ML VIAL SC SCH (08:17)
[2017-04-23] MEDS: L ACIDOPHIL/B LACTIS/B LONGUM CAPSULE PO SCH ×2 (08:20→21:00)
[2017-04-23] MEDS: TPN 1,000 ML IV SCH (12:17)
--- NOTE | 2017-04-23 13:49 | CONS ---
Date/Time of Note Date/Time of Note DATE: 04/23/17 TIME: 13:48 Consult Date/Type/Reason Admit Date/Time Mar 30, 2017 at 02:24 Initial Consult Date 04/01/17 Type of Consultation: ID Ordering Provider: ALLISON HAYWARD Objective Vital Signs Date Time Temp Pulse Resp B/P Pulse Ox O2 Delivery O2 Flow Rate FiO2 04/23/17 07:17 98.6 65 18 99/57 98 Room Air Intake and Output 04/22/17 04/22/17 04/23/17 15:00 23:00 07:00 Intake Total 100 ml 1700 ml 400 ml Output Total 1600 ml 2100 ml Balance 100 ml 100 ml -1700 ml Results/Medications Result Diagram: 04/23/17 0441 04/23/17 0441 Results 24 hrs Laboratory Tests Test 04/22/17 17:45 04/22/17 20:52 04/23/17 04:41 04/23/17 08:22 Bedside Glucose 116 118 123 White Blood Count 7.0 Red Blood Count 3.27 L Hemoglobin 9.2 L Hematocrit 28.1 L Mean Corpuscular Volume 85.9 Mean Corpuscular Hemoglobin 28.1 L Mean Corpuscular Hemoglobin Concent 32.7 Red Cell Distribution Width 14.9 H Platelet Count 313 Mean Platelet Volume 9.5 Neutrophils % 63.2 Lymphocytes % 22.4 Monocytes % 11.1 H Eosinophils % 1.7 Basophils % 0.3 Nucleated Red Blood Cells % 0.0 Neutrophils # 4.4 Lymphocytes # 1.6 Monocytes # 0.8 Eosinophils # 0.1 Basophils # 0.0 Nucleated Red Blood Cells # 0.0 Sodium Level 141 Potassium Level 4.4 Chloride Level 107 Carbon Dioxide Level 22 Anion Gap 16 Blood Urea Nitrogen 54 H Creatinine 2.15 H Glucose Level 115 Calcium Level 10.2 Phosphorus Level 3.5 Magnesium Level 2.1 Total Bilirubin 0.0 L Direct Bilirubin 0.00 Indirect Bilirubin 0.0 Aspartate Amino Transf (AST/SGOT) 77 H Alanine Aminotransferase (ALT/SGPT) 128 H Alkaline Phosphatase 735 H Total Protein 7.5 Albumin 3.4 Globulin 4.10 H Albumin/Globulin Ratio 0.82 Test 04/23/17 12:38 Bedside Glucose 113 Medications Current Medications Ondansetron HCl (Zofran Inj) 4 mg Q6H PRN IV NAUSEA AND/OR VOMITING Last administered on 04/23/17 05:30; Admin Dose 4 MG; Start 03/30/17 at 03:30 Heparin Sodium (Porcine) (Heparin (5000 Units/0.5 ml)) 5,000 unit DAILY SC Last administered on 04/23/17 08:17; Admin Dose 5,000 UNIT; Start 03/30/17 at 09:00 Oxycodone/ Acetaminophen 1 tab 1 tab Q4H PRN PO PAIN Last administered on 04/23 10:11; Admin Dose 1 TAB; Start 03/30/17 at 06:00 Total Parenteral Nutrition (Tpn) 1,000 ml @ 70 mls/hr [id number] IV Last administered on 04/23/17 12:17; Admin Dose 70 MLS/HR; Start 03/31/17 at 15:00 Insulin Glargine (Lantus) 10 unit HS SC Last administered on 04/22/17 20:58; Admin Dose 10 UNIT; Start 04/01/17 at 21:00 Miscellaneous Information 1 ea NOTE XX ; Start 03/31/17 at 21:00 Glucose (Glutose) 15 gm Q15M PRN PO DECREASED GLUCOSE; Start 03/31/17 at 21:00 Glucose (Glutose) 22.5 gm Q15M PRN PO DECREASED GLUCOSE; Start 03/31/17 at 21: 00 Dextrose (D50w Syringe) 25 ml Q15M PRN IV DECREASED GLUCOSE; Start 03/31/17 at 21:00 Dextrose (D50w Syringe) 50 ml Q15M PRN IV DECREASED GLUCOSE; Start 03/31/17 at 21:00 Glucagon (Glucagen) 1 mg Q15M PRN IM DECREASED GLUCOSE; Start 03/31/17 at 21: 00 Glucose (Glutose) 15 gm Q15M PRN BUCCAL DECREASED GLUCOSE; Start 03/31/17 at 21:00 Diagnostic Test (Pha) (Accu-Chek) 1 ea 02 XX Last administered on 04/22/17 02 :00; Admin Dose 1 EA; Start 04/06/17 at 02:00 Ascorbic Acid (Vitamin C) 500 mg DAILY PO Last administered on 04/23/17 08:15 ; Admin Dose 500 MG; Start 04/11/17 at 09:00 Zinc Sulfate (Zinc Sulfate) 220 mg DAILY PO Last administered on 04/23/17 08: 15; Admin Dose 220 MG; Start 04/11/17 at 09:00 Fentanyl (Duragesic 25 Mcg/Hr Patch) 1 patch Q3D TRANSDERM Last administered on 04/20/17 18:25; Admin Dose 1 PATCH; Start 04/11/17 at 17:00 Loperamide HCl (Imodium Cap) 2 mg TID PO Last administered on 04/23/17 08:15 ; Admin Dose 2 MG; Start 04/15/17 at 13:00 Nystatin 1 applic 1 applic PRN TOP Last administered on 04/19/17 13:17; Admin Dose 1 APPLIC; Start 04/16/17 at 16:30 Ertapenem/Sodium Chloride (Invanz/NS) 100 ml @ 200 mls/hr Q24H IVPB Last administered on 04/22/17 13:42; Admin Dose 200 MLS/HR; Start 04/19/17 at 14: 00 Acetaminophen (Tylenol Tab) 650 mg Q6H PRN PO PAIN AND OR ELEVATED TEMP Last administered on 04/20/17 22:42; Admin Dose 650 MG; Start 04/20/17 at 22:00 Levofloxacin (Levaquin) 500 mg DAILY@06 PO Last administered on 04/23/17 05: 30; Admin Dose 500 MG; Start 04/22/17 at 06:00 Lactobacillus Acidophilus (Florajen3 Capsule) 1 each BID PO Last administered on 04/23/17 08:20; Admin Dose 1 EACH; Start 04/21/17 at 21:00 Assessment/Plan Chief Complaint/Hosp Course SUBJECTIVE: No acute changes overnight. The patient is awake, looks comfortable, no fevers overnight. ANTIMICROBIALS: Levofloxacin, Invanz. MICROBIOLOGY: Repeat urine culture on 04/18/2017 grew E. coli ESBL and Stenotrophomonas maltophilia. PHYSICAL EXAMINATION: GENERAL: This is a cachectic, chronically ill-appearing, elderly, [place] man who is awake, in no distress. HEENT: Head atraumatic, normocephalic. Sclerae anicteric. Buccal mucosa dry. NECK: Supple. CHEST: Rise symmetrical. Breath sounds clear. HEART: S1, S2. ABDOMEN: Soft. Bowel tones present. ASSESSMENT: 1. Recurrent urinary tract infection. 2. History of bladder and prostate cancer, status post chemoradiation, cystoprostatectomy with urinary diversion and ileostomy conduit. 3. History of perforated viscus repair. 4. Acute renal failure. 5. Cachexia. 6. History of obstructive uropathy, status post bilateral JJ stent placement. PLAN: The patient remains stable. Continue present care, antibiotics. Follow recommendations of specialists. Problems: KING MARQUES NP Apr 23, 2017 13:49
[2017-04-23] MEDS: ERTAPENEM SODIUM 1 GM in SOD CHLORIDE 0.9% 100 ML IVPB SCH (13:53)
--- NOTE | 2017-04-23 13:58 | PN ---
Date/Time of Note Date/Time of Note DATE: 04/23/17 TIME: 13:50 Assessment/Plan VTE Prophylaxis VTE Prophylaxis Intervention: heparin Lines/Catheters IV [facility] PICC Line Central line still needed: Yes Urinary Cath still in place: No Assessment/Plan Assessment/Plan 1. Complicated urinary tract infection with polymicrobial's including E. coli ESBL. Status post antimicrobials as per infectious diseases. Repeat urine cultures also showing ESBL. Therefore, the patient is on invanz 2. Acute on chronic renal failure, The patient being followed by nephrology 3. Bladder cancer. Status post radical cystoprostatectomy and creation of ileal conduit with colonic diversion for fistula formation. To be evaluated by Urology. 4. Status post perforated viscus repair complicated by intra-abdominal abscess requiring CT-guided drainage on previous admission. The patient has an abdominal wound vac in place. Being followed by surgery. Dr. Rich is called for second opinion requested by family 5. Severe protein calorie malnutrition. Patient on TPN. The patient on a mechanical soft diet. 6. Normocytic anemia. Etiology unclear. Probably anemia of chronic disease. 8. DVT prophylaxis. Subcutaneous heparin. Subjective 24 Hr Interval Summary Free Text/Dictation afebrile, abdominal pain Exam/Review of Systems Vital Signs Vitals Vital Signs Date Time Temp Pulse Resp B/P Pulse Ox O2 Delivery O2 Flow Rate FiO2 04/23/17 07:17 98.6 65 18 99/57 98 Room Air Intake and Output 04/22/17 04/22/17 04/23/17 15:00 23:00 07:00 Intake Total 100 ml 1700 ml 400 ml Output Total 1600 ml 2100 ml Balance 100 ml 100 ml -1700 ml Exam Constitutional: alert, frail, oriented Psych: nl mood/affect, no complaints Head: atraumatic, normocephalic Eyes: EOMI, PERRL, nl conjunctiva, nl lids, nl sclera ENMT: mucosa pink and moist, nl external ears & nose, nl lips & teeth, nl nasal mucosa & septum Neck: non-tender, supple Respiratory: clear to auscultation, normal air movement, No congested cough, No crackles/rales, No diminished breath sounds, No intercostal retraction, No labored breathing, No other, No respirations, No tactile fremitus, No wheezing Cardiovascular: nl pulses, regular rate and rhythm, No S3, No S4, No bruits, No diastolic murmur, No edema, No gallop, No irregular rhythm, No jugular venous distention (JVD), No murmurs/extra sounds, No other, No rub, No systolic murmur Gastrointestinal: nl liver, spleen, tender Musculoskeletal: nl extremities to inspection Extremities: normal pulses, No calf tenderness, No clubbing, No cyanosis, No edema, No other, No palpable cord, No pitting pedal edema, No tenderness Neurological: WATCH ENGINEER II-XII intact, nl mental status, nl speech, nl strength Results Result Diagram: 04/23/1744004/23/17 0441 Results 24 hrs Laboratory Tests Test 04/22/17 17:45 04/22/17 20:52 04/23/17 04:41 04/23/17 08:22 Bedside Glucose 116 118 123 White Blood Count 7.0 Red Blood Count 3.27 L Hemoglobin 9.2 L Hematocrit 28.1 L Mean Corpuscular Volume 85.9 Mean Corpuscular Hemoglobin 28.1 L Mean Corpuscular Hemoglobin Concent 32.7 Red Cell Distribution Width 14.9 H Platelet Count 313 Mean Platelet Volume 9.5 Neutrophils % 63.2 Lymphocytes % 22.4 Monocytes % 11.1 H Eosinophils % 1.7 Basophils % 0.3 Nucleated Red Blood Cells % 0.0 Neutrophils # 4.4 Lymphocytes # 1.6 Monocytes # 0.8 Eosinophils # 0.1 Basophils # 0.0 Nucleated Red Blood Cells # 0.0 Sodium Level 141 Potassium Level 4.4 Chloride Level 107 Carbon Dioxide Level 22 Anion Gap 16 Blood Urea Nitrogen 54 H Creatinine 2.15 H Glucose Level 115 Calcium Level 10.2 Phosphorus Level 3.5 Magnesium Level 2.1 Total Bilirubin 0.0 L Direct Bilirubin 0.00 Indirect Bilirubin 0.0 Aspartate Amino Transf (AST/SGOT) 77 H Alanine Aminotransferase (ALT/SGPT) 128 H Alkaline Phosphatase 735 H Total Protein 7.5 Albumin 3.4 Globulin 4.10 H Albumin/Globulin Ratio 0.82 Test 04/23/17 12:38 Bedside Glucose 113 Medications Medications Current Medications Ondansetron HCl (Zofran Inj) 4 mg Q6H PRN IV NAUSEA AND/OR VOMITING Last administered on 04/23/17t 05:30; Admin Dose 4 MG; Start 03/30/17 at 03:30 Heparin Sodium (Porcine) (Heparin (5000 Units/0.5 ml)) 5,000 unit DAILY SC Last administered on 04/23/17 08:17; Admin Dose 5,000 UNIT; Start 03/30/17 at 09:00 Oxycodone/ Acetaminophen 1 tab 1 tab Q4H PRN PO PAIN Last administered on 04/23 10:11; Admin Dose 1 TAB; Start 03/30/17 at 06:00 Total Parenteral Nutrition (Tpn) 1,000 ml @ 70 mls/hr [id number] IV Last administered on 04/23/17 12:17; Admin Dose 70 MLS/HR; Start 03/31/17 at 15:00 Insulin Glargine (Lantus) 10 unit HS SC Last administered on 04/22/17 20:58; Admin Dose 10 UNIT; Start 04/01/17 at 21:00 Miscellaneous Information 1 ea NOTE XX ; Start 03/31/17 at 21:00 Glucose (Glutose) 15 gm Q15M PRN PO DECREASED GLUCOSE; Start 03/31/17 at 21:00 Glucose (Glutose) 22.5 gm Q15M PRN PO DECREASED GLUCOSE; Start 03/31/17 at 21: 00 Dextrose (D50w Syringe) 25 ml Q15M PRN IV DECREASED GLUCOSE; Start 03/31/17 at 21:00 Dextrose (D50w Syringe) 50 ml Q15M PRN IV DECREASED GLUCOSE; Start 03/31/17 at 21:00 Glucagon (Glucagen) 1 mg Q15M PRN IM DECREASED GLUCOSE; Start 03/31/17 at 21: 00 Glucose (Glutose) 15 gm Q15M PRN BUCCAL DECREASED GLUCOSE; Start 03/31/17 at 21:00 Diagnostic Test (Pha) (Accu-Chek) 1 ea 02 XX Last administered on 04/22/17 02 :00; Admin Dose 1 EA; Start 04/06/17 at 02:00 Ascorbic Acid (Vitamin C) 500 mg DAILY PO Last administered on 04/23/17 08:15 ; Admin Dose 500 MG; Start 04/11/17 at 09:00 Zinc Sulfate (Zinc Sulfate) 220 mg DAILY PO Last administered on 04/23/17 08: 15; Admin Dose 220 MG; Start 04/11/17 at 09:00 Fentanyl (Duragesic 25 Mcg/Hr Patch) 1 patch Q3D TRANSDERM Last administered on 04/20/17 18:25; Admin Dose 1 PATCH; Start 04/11/17 at 17:00 Loperamide HCl (Imodium Cap) 2 mg TID PO Last administered on 04/23/17 08:15 ; Admin Dose 2 MG; Start 04/15/17 at 13:00 Nystatin 1 applic 1 applic PRN TOP Last administered on 04/19/17 13:17; Admin Dose 1 APPLIC; Start 04/16/17 at 16:30 Ertapenem/Sodium Chloride (Invanz/NS) 100 ml @ 200 mls/hr Q24H IVPB Last administered on 04/22/17 13:42; Admin Dose 200 MLS/HR; Start 04/19/17 at 14: 00 Acetaminophen (Tylenol Tab) 650 mg Q6H PRN PO PAIN AND OR ELEVATED TEMP Last administered on 04/20/17 22:42; Admin Dose 650 MG; Start 04/20/17 at 22:00 Levofloxacin (Levaquin) 500 mg DAILY@06 PO Last administered on 04/23/17 05: 30; Admin Dose 500 MG; Start 04/22/17 at 06:00 Lactobacillus Acidophilus (Florajen3 Capsule) 1 each BID PO Last administered on 04/23/17 08:20; Admin Dose 1 EACH; Start 04/21/17 at 21:00 NAA HUFF MD Apr 23, 2017 13:58
[2017-04-23 14:00] VITALS: BP 95/53; RESP 18
--- NOTE | 2017-04-23 15:40 | CONS ---
Date/Time of Note Date/Time of Note DATE: 04/23/17 TIME: 15:37 Assessment/Plan Assessment/Plan Additional Assessment/Plan 1. acute kidney injury Non oliguric . 2. H/o ESBL UTI 3.history of bladder cancer s/p TURBT, chemotherapy/radiation, urethral damage, chemo/radiation induced urinary and fecal incontinence. He underwent cystoprostatectomy with urinary diversion, ileal conduit, colonic diversion for fistula on last admission 4. Anemia of Chronic disease 5. Severe protein calorie malnutrition Plan: -Off abx now -on TPN -cr bumped to 2.15 today- will give NS IVF X 2 liter then stop -will continue to follow up Consultation Date/Type/Reason Admit Date/Time Mar 30, 2017 at 02:24 Initial Consult Date 03/30/17 Type of Consultation: NEPHROLOGY Referring Provider: ALLISON HAYWARD Exam/Review of Systems Vital Signs Vitals Vital Signs Date Time Temp Pulse Resp B/P Pulse Ox O2 Delivery O2 Flow Rate FiO2 04/23/17 14:00 98.6 69 18 95/53 100 04/23/17 07:17 Room Air Intake and Output 04/22/17 04/22/17 04/23/17 15:00 23:00 07:00 Intake Total 100 ml 1700 ml 400 ml Output Total 1600 ml 2100 ml Balance 100 ml 100 ml -1700 ml Exam Constitutional: weak. No acute distress. He is cachectic) Head: atraumatic, normocephalic Eyes: EOMI, PERRL Respiratory: clear to auscultation, normal air movement Cardiovascular: nl pulses, regular rate and rhythm Gastrointestinal: other (Scaphoid abdomen. Urostomy, colostomy and ileal conduit) Extremities: normal pulses + PICC line in place , on TPN Results Result Diagram: 04/23/17 0441 04/23/17 0441 Results 24 hrs Laboratory Tests Test 04/22/17 17:45 04/22/17 20:52 04/23/17 04:41 04/23/17 08:22 Bedside Glucose 116 118 123 White Blood Count 7.0 Red Blood Count 3.27 L Hemoglobin 9.2 L Hematocrit 28.1 L Mean Corpuscular Volume 85.9 Mean Corpuscular Hemoglobin 28.1 L Mean Corpuscular Hemoglobin Concent 32.7 Red Cell Distribution Width 14.9 H Platelet Count 313 Mean Platelet Volume 9.5 Neutrophils % 63.2 Lymphocytes % 22.4 Monocytes % 11.1 H Eosinophils % 1.7 Basophils % 0.3 Nucleated Red Blood Cells % 0.0 Neutrophils # 4.4 Lymphocytes # 1.6 Monocytes # 0.8 Eosinophils # 0.1 Basophils # 0.0 Nucleated Red Blood Cells # 0.0 Sodium Level 141 Potassium Level 4.4 Chloride Level 107 Carbon Dioxide Level 22 Anion Gap 16 Blood Urea Nitrogen 54 H Creatinine 2.15 H Glucose Level 115 Calcium Level 10.2 Phosphorus Level 3.5 Magnesium Level 2.1 Total Bilirubin 0.0 L Direct Bilirubin 0.00 Indirect Bilirubin 0.0 Aspartate Amino Transf (AST/SGOT) 77 H Alanine Aminotransferase (ALT/SGPT) 128 H Alkaline Phosphatase 735 H Total Protein 7.5 Albumin 3.4 Globulin 4.10 H Albumin/Globulin Ratio 0.82 Test 04/23/17 12:38 Bedside Glucose 113 Medications Medications Current Medications Ondansetron HCl (Zofran Inj) 4 mg Q6H PRN IV NAUSEA AND/OR VOMITING Last administered on 04/23/17 13:53; Admin Dose 4 MG; Start 03/30/17 at 03:30 Heparin Sodium (Porcine) (Heparin (5000 Units/0.5 ml)) 5,000 unit DAILY SC Last administered on 04/23/17 08:17; Admin Dose 5,000 UNIT; Start 03/30/17 at 09:00 Oxycodone/ Acetaminophen 1 tab 1 tab Q4H PRN PO PAIN Last administered on 04/23 13:54; Admin Dose 1 TAB; Start 03/30/17 at 06:00 Total Parenteral Nutrition (Tpn) 1,000 ml @ 70 mls/hr [id number] IV Last administered on 04/23/17 12:17; Admin Dose 70 MLS/HR; Start 03/31/17 at 15:00 Insulin Glargine (Lantus) 10 unit HS SC Last administered on 04/22/17 20:58; Admin Dose 10 UNIT; Start 04/01/17 at 21:00 Miscellaneous Information 1 ea NOTE XX ; Start 03/31/17 at 21:00 Glucose (Glutose) 15 gm Q15M PRN PO DECREASED GLUCOSE; Start 03/31/17 at 21:00 Glucose (Glutose) 22.5 gm Q15M PRN PO DECREASED GLUCOSE; Start 03/31/17 at 21: 00 Dextrose (D50w Syringe) 25 ml Q15M PRN IV DECREASED GLUCOSE; Start 03/31/17 at 21:00 Dextrose (D50w Syringe) 50 ml Q15M PRN IV DECREASED GLUCOSE; Start 03/31/17 at 21:00 Glucagon (Glucagen) 1 mg Q15M PRN IM DECREASED GLUCOSE; Start 03/31/17 at 21: 00 Glucose (Glutose) 15 gm Q15M PRN BUCCAL DECREASED GLUCOSE; Start 03/31/17 at 21:00 Diagnostic Test (Pha) (Accu-Chek) 1 ea 02 XX Last administered on 04/22/17 02 :00; Admin Dose 1 EA; Start 04/06/17 at 02:00 Ascorbic Acid (Vitamin C) 500 mg DAILY PO Last administered on 04/23/17 08:15 ; Admin Dose 500 MG; Start 04/11/17 at 09:00 Zinc Sulfate (Zinc Sulfate) 220 mg DAILY PO Last administered on 04/23/17 08: 15; Admin Dose 220 MG; Start 04/11/17 at 09:00 Fentanyl (Duragesic 25 Mcg/Hr Patch) 1 patch Q3D TRANSDERM Last administered on 04/20/17 18:25; Admin Dose 1 PATCH; Start 04/11/17 at 17:00 Loperamide HCl (Imodium Cap) 2 mg TID PO Last administered on 04/23/17 13:54 ; Admin Dose 2 MG; Start 04/15/17 at 13:00 Nystatin 1 applic 1 applic PRN TOP Last administered on 04/19/17 13:17; Admin Dose 1 APPLIC; Start 04/16/17 at 16:30 Ertapenem/Sodium Chloride (Invanz/NS) 100 ml @ 200 mls/hr Q24H IVPB Last administered on 04/23/17 13:53; Admin Dose 200 MLS/HR; Start 04/19/17 at 14: 00 Acetaminophen (Tylenol Tab) 650 mg Q6H PRN PO PAIN AND OR ELEVATED TEMP Last administered on 04/20/17 22:42; Admin Dose 650 MG; Start 04/20/17 at 22:00 Levofloxacin (Levaquin) 500 mg DAILY@06 PO Last administered on 04/23/17 05: 30; Admin Dose 500 MG; Start 04/22/17 at 06:00 Lactobacillus Acidophilus (Florajen3 Capsule) 1 each BID PO Last administered on 04/23/17t 08:20; Admin Dose 1 EACH; Start 04/21/17 at 21:00 MARGOT WOMACK MD Apr 23, 2017 15:40
[2017-04-23] MEDS: SOD CHLORIDE 0.9% 1,000 ML IV SCH (17:40)
--- NOTE | 2017-04-23 18:14 | PN ---
Date/Time of Note Date/Time of Note DATE: 04/23/17 TIME: 18:11 Assessment/Plan Lines/Catheters IV Catheter Type (from Nrs): PICC Line Tomas in Place (from Nrs): No Assessment/Plan Chief Complaint/Hosp Course 1. Multiple ostomies and ileal conduit: all ostomies pink and moist; s/p multiple Perforated viscous w small bowel proximal looped ostomy (minimum 6 month wait prior to considering attempting abdominal re-exploration); rectal discharge; 2nd opinion surgical consult -continue ostomy care -continue oral feed and supplements; hopefully can wean off tpn for discharge to snf -continue local abdominal wound care-w vac -oral diet as tolerated with protein shakes and probiotics -oob/ambulate -urology consult-still pending 2. UTI (polymicrobial, complicated)pink with mucous urine, cultures noted -abx/antimicrobials per sensitivity -frequent bladder emptying/cath care -urology 3. Malnutrition: tolerating solid diet;refusing supplements -continue tpn -vitamins, probiotics, and nutritional supplements -encourage supplements -calorie count; hopefully wean off tpn if able for dc to snf if unable to find snf that accepts tpn -started on antimotility agent and fish oil 4. MANA: worse today -judicious fluids -limit nephrotoxic meds -per renal 5. Bladder cancer: s/p chemo/radiation, s/p cystoprostatectomy with urinary diversion -per oncology/urology 6. Normocytic hypochromic anemia: no overt bleed noted -monitor -transfuse as needed -further workup per medical team 7. Pelvic pain:on fentanyl patch; still with pain; ? up titrate med -pain management 8. Min temp: cxr negative -further workup if fever spikes 9. Transaminitis Thank you. Patient seen and examined in collaboration with Dr. Bang Ross Problems: Subjective 24 Hr Interval Summary Abdominal pain. Min discharge from rectum. Min temp, no fever. No fevers, chills , sob, congested cough, cp, palpitations, craig, dizziness, n/v/d/dysuria. Exam/Review of Systems Vital Signs Vitals Vital Signs Date Time Temp Pulse Resp B/P Pulse Ox O2 Delivery O2 Flow Rate FiO2 04/23/17 14:00 98.6 69 18 95/53 100 04/23/17 07:17 Room Air Intake and Output 04/22/17 04/22/17 04/23/17 14:59 22:59 06:59 Intake Total 100 ml 1700 ml 400 ml Output Total 1600 ml 2100 ml Balance 100 ml 100 ml -1700 ml Exam Free Text/Dictation Constitutional: alert, frail, oriented Psych: min anxious Head: atraumatic, normocephalic Eyes: nl lids, nl sclera ENMT: mucosa pink and moist, nl nasal mucosa & septum Neck: non-tender, supple Respiratory: normal air movement Cardiovascular: nl pulses, regular rate and rhythm Gastrointestinal: non-tender, other (ileostomy, colostomy,ileal conduit -all ostomies pink and moist), soft, wound scan drainage, no erythema Genitourinary - Male: nl penis, nl scrotum; ileal conduit with mucous/sediment output Musculoskeletal: nl extremities to inspection, nl gait and stance Extremities: normal pulses, No edema Neurological: nl mental status, nl speech Skin: nl turgor, rash or lesions; lower abdomen wound; redness/irritation around ostomies Results Result Diagram: 04/23/17 0441 04/23/17 0441 IFTIKHAR ROBERTSON NP Apr 23, 2017 18:14
[2017-04-23 20:08] VITALS: BP 99/51; RESP 18
[2017-04-23] MEDS: INSULIN GLARGINE [LANtus] 3 ML PEN SC SCH ×2 (21:00→21:26)
[2017-04-24 01:53] VITALS: BP 98/52; RESP 18
[2017-04-24] MEDS: ACCUCHECK AT 2AM (Patients on SS coverage) XX SCH (02:00)
[2017-04-24] MEDS: TPN 1,000 ML IV SCH ×2 (03:49→19:00)
[2017-04-24 06:36] LABS: CALCIUM 9.8 mg/dl (8.4-10.2); CREATININE 2.02 mg/dl (0.61-1.24); MAGNESIUM 1.9 mg/dl (1.7-2.5); PHOSPHORUS 3.6 mg/dl (2.5-4.9); POTASSIUM 4.4 mmol/L (3.5-5.1)
[2017-04-24 06:42] LABS: PREALBUMIN 19.1 mg/dl (17.6-36.0)
[2017-04-24] MEDS: SOD CHLORIDE 0.9% 1,000 ML IV SCH (07:28)
[2017-04-24] MEDS: Insulin NOVOLOG SS MODERATE Algorithm (SS with meals and bedtime) SC SCH ×4 (07:50→22:00)
[2017-04-24 08:00] VITALS: BP 96/50; RESP 21
[2017-04-24] MEDS: LOPERAMIDE 2 MG CAP PO SCH ×3 (09:58→21:56)
[2017-04-24] MEDS: ZINC SULFATE 220 MG CAP PO SCH (09:58)
[2017-04-24] MEDS: L ACIDOPHIL/B LACTIS/B LONGUM CAPSULE PO SCH ×2 (09:58→21:56)
[2017-04-24] MEDS: ASCORBIC ACID 500 MG TAB PO SCH (09:58)
[2017-04-24] MEDS: HEPARIN 5,000 UNIT/0.5 ML VIAL SC SCH (10:05)
--- NOTE | 2017-04-24 12:57 | PN ---
Date/Time of Note Date/Time of Note DATE: 04/24/17 TIME: 12:54 Assessment/Plan VTE Prophylaxis VTE Prophylaxis Intervention: heparin Lines/Catheters IV Catheter Type (from [facility]): PICC Line Central line still needed: Yes Urinary Cath still in place: No Assessment/Plan Chief Complaint/Hosp Course 1. Complicated urinary tract infection with polymicrobial's including E. coli ESBL. Status post antimicrobials as per infectious diseases. Repeat urine cultures also showing ESBL. Therefore, the patient was restarted on carbapenems. 2. Acute nonoliguric kidney injury. Etiology unclear. The patient being followed by nephrology. Use nephrotoxic drugs with caution. 3. Bladder cancer. Status post radical cystoprostatectomy and creation of ileal conduit with colonic diversion for fistula formation. To be evaluated by Urology. 4. Status post perforated viscus repair complicated by intra-abdominal abscess requiring CT-guided drainage on previous admission. The patient has an abdominal wound vac in place. Being followed by surgery. 5. Severe protein calorie malnutrition. Patient on TPN. The patient on a mechanical soft diet. 6. Normocytic anemia. Etiology unclear. Probably anemia of chronic disease. 7. Fluids, electrolytes, and nutrition. TPN. Mechanical soft diet. 8. DVT prophylaxis. Subcutaneous heparin. 9. Plan. Continue antimicrobials as per ID. Await urology input. Checked with surgery. Surgery recommending to continue TPN until the patient has adequate calorie intake and absorption. Dr. Oakes with Dr. Rich has seen the patient on 04/24/2017. Dr. Rich will update the family on 04/26/2017. Case discussed with Dr. Baez. Problems: Subjective 24 Hr Interval Summary Free Text/Dictation The patient remains afebrile. Exam/Review of Systems Vital Signs Vitals Vital Signs Date Time Temp Pulse Resp B/P Pulse Ox O2 Delivery O2 Flow Rate FiO2 04/24/17 08:00 99.5 70 21 96/50 98 04/23/17 07:17 Room Air Intake and Output 04/23/17 04/23/17 04/24/17 15:00 23:00 07:00 Intake Total 1100 ml 1250 ml 1715 ml Output Total 800 ml 1570 ml Balance 1100 ml 450 ml 145 ml Exam General:, Thin, frail looking 66 year-old male lying in bed in no apparent distress. HEENT: Normocephalic, atraumatic. Eyes: Anicteric sclerae, conjunctivae clear. ENT: Nasal septum midline, oral mucosa moist. Neck supple, no JVD noticed. Respiratory: Bilaterally diminished breath sounds. No use of accessory muscles of respiration. No adventitious breath sounds. Cardiovascular: S1, S2 heard. No murmurs or gallops. Abdomen: Soft, nontender, and nondistended. Abdominal wall wound Vac. Ileostomy draining light brown liquid output (less amount). Colostomy pink bud moist. Ileal conduit. Genitourinary: Deferred. Extremities: No cyanosis, no clubbing, no edema. Peripheral pulses palpable. Neurologic: Cranial nerves II through XII grossly intact. The patient is awake, alert, and oriented. Skin: Normal skin turgor. No skin rashes. Results Result Diagram: 04/23/17 0441 04/24/17 0437 Results 24 hrs Laboratory Tests Test 04/23/17 17:36 04/23/17 20:59 04/24/17 04:37 04/24/17 08:43 Bedside Glucose 141 138 139 Sodium Level 142 Potassium Level 4.4 Chloride Level 106 Carbon Dioxide Level 23 Anion Gap 17 H Blood Urea Nitrogen 58 H Creatinine 2.02 H Glucose Level 122 Calcium Level 9.8 Phosphorus Level 3.6 Magnesium Level 1.9 Prealbumin 19.1 Triglycerides Level 163 H Test 04/24/17 12:43 Bedside Glucose 109 Medications Medications Current Medications Ondansetron HCl (Zofran Inj) 4 mg Q6H PRN IV NAUSEA AND/OR VOMITING Last administered on 04/23/17 22:21; Admin Dose 4 MG; Start 03/30/17 at 03:30 Heparin Sodium (Porcine) (Heparin (5000 Units/0.5 ml)) 5,000 unit DAILY SC Last administered on 04/24/17 10:05; Admin Dose 5,000 UNIT; Start 03/30/17 at 09:00 Oxycodone/ Acetaminophen 1 tab 1 tab Q4H PRN PO PAIN Last administered on 04/23 22:17; Admin Dose 1 TAB; Start 03/30/17 at 06:00 Total Parenteral Nutrition (Tpn) 1,000 ml @ 70 mls/hr [id number] IV Last administered on 04/24/17 03:49; Admin Dose 70 MLS/HR; Start 03/31/17 at 15:00 Insulin Glargine (Lantus) 10 unit HS SC Last administered on 04/23/17 21:26; Admin Dose 10 UNIT; Start 04/01/17 at 21:00 Miscellaneous Information 1 ea NOTE XX ; Start 03/31/17 at 21:00 Glucose (Glutose) 15 gm Q15M PRN PO DECREASED GLUCOSE; Start 03/31/17 at 21:00 Glucose (Glutose) 22.5 gm Q15M PRN PO DECREASED GLUCOSE; Start 03/31/17 at 21: 00 Dextrose (D50w Syringe) 25 ml Q15M PRN IV DECREASED GLUCOSE; Start 03/31/17 at 21:00 Dextrose (D50w Syringe) 50 ml Q15M PRN IV DECREASED GLUCOSE; Start 03/31/17 at 21:00 Glucagon (Glucagen) 1 mg Q15M PRN IM DECREASED GLUCOSE; Start 03/31/17 at 21: 00 Glucose (Glutose) 15 gm Q15M PRN BUCCAL DECREASED GLUCOSE; Start 03/31/17 at 21:00 Diagnostic Test (Pha) (Accu-Chek) 1 ea 02 XX Last administered on 04/22/17 02 :00; Admin Dose 1 EA; Start 04/06/17 at 02:00 Ascorbic Acid (Vitamin C) 500 mg DAILY PO Last administered on 04/24/17 09:58 ; Admin Dose 500 MG; Start 04/11/17 at 09:00 Zinc Sulfate (Zinc Sulfate) 220 mg DAILY PO Last administered on 04/24/17 09: 58; Admin Dose 220 MG; Start 04/11/17 at 09:00 Fentanyl (Duragesic 25 Mcg/Hr Patch) 1 patch Q3D TRANSDERM Last administered on 04/23/17 17:50; Admin Dose 1 PATCH; Start 04/11/17 at 17:00 Loperamide HCl (Imodium Cap) 2 mg TID PO Last administered on 04/24/17 09:58 ; Admin Dose 2 MG; Start 04/15/17 at 13:00 Nystatin 1 applic 1 applic PRN TOP Last administered on 04/19/17 13:17; Admin Dose 1 APPLIC; Start 04/16/17 at 16:30 Ertapenem/Sodium Chloride (Invanz/NS) 100 ml @ 200 mls/hr Q24H IVPB Last administered on 04/23/17 13:53; Admin Dose 200 MLS/HR; Start 04/19/17 at 14: 00 Acetaminophen (Tylenol Tab) 650 mg Q6H PRN PO PAIN AND OR ELEVATED TEMP Last administered on 04/20/17 22:42; Admin Dose 650 MG; Start 04/20/17 at 22:00 Lactobacillus Acidophilus 1 each 1 each BID PO Last administered on 04/24/17 09:58; Admin Dose 1 EACH; Start 04/21/17 at 21:00 Sodium Chloride (NS) 1,000 ml @ 75 mls/hr [id number] IV Last administered on 07:28; Admin Dose 75 MLS/HR; Start 04/23/17 at 16:00; Stop 04/24/17 at 21:19 Levofloxacin (Levaquin) 500 mg Q2D@06 PO ; Start 04/25/17 at 06:00 BRENDA PETTIT NP Apr 24, 2017 12:57
--- NOTE | 2017-04-24 13:55 | PN ---
Date/Time of Note Date/Time of Note DATE: 04/24/17 TIME: 13:51 Assessment/Plan Lines/Catheters IV Catheter Type (from Nrs): PICC Line Tomas in Place (from Nrs): No Assessment/Plan Chief Complaint/Hosp Course 1. Multiple ostomies and ileal conduit: all ostomies pink and moist; s/p multiple Perforated viscous w small bowel proximal looped ostomy (minimum 6 month wait prior to considering attempting abdominal re-exploration); rectal discharge; 2nd opinion surgical consult pending -continue ostomy care -continue oral feed and supplements; hopefully can wean off tpn for discharge to snf -continue local abdominal wound care-w vac -oral diet as tolerated with protein shakes and probiotics -oob/ambulate -urology consult-pending -TPN 2. UTI (polymicrobial, complicated)pink with mucous urine, cultures noted -abx/antimicrobials per sensitivity -frequent bladder emptying/cath care -urology 3. Malnutrition: tolerating solid diet;refusing supplements -continue tpn -vitamins, probiotics, and nutritional supplements -encourage supplements -calorie count; hopefully wean off tpn if able for dc to snf if unable to find snf that accepts tpn -started on antimotility agent and fish oil 4. MANA: worse today -judicious fluids -limit nephrotoxic meds -per renal 5. Bladder cancer: s/p chemo/radiation, s/p cystoprostatectomy with urinary diversion -per oncology/urology 6. Normocytic hypochromic anemia: no overt bleed noted -monitor -transfuse as needed -further workup per medical team 7. Pelvic pain:on fentanyl patch; still with pain; ? up titrate med -pain management 8. Min temp: cxr negative -further workup if fever spikes 9. Transaminitis Thank you, Problems: Subjective 24 Hr Interval Summary 2nd opinion surgical consult pending. Abdominal pain. Min discharge from rectum. Min temp, no fever. No fevers, chills, sob, congested cough, cp, palpitations, craig, dizziness, n/v/d/dysuria. Exam/Review of Systems Vital Signs Vitals Vital Signs Date Time Temp Pulse Resp B/P Pulse Ox O2 Delivery O2 Flow Rate FiO2 04/24/17 08:00 99.5 70 21 96/50 98 04/23/17 07:17 Room Air Intake and Output 04/23/17 04/23/17 04/24/17 15:00 23:00 07:00 Intake Total 1100 ml 1250 ml 1715 ml Output Total 800 ml 1570 ml Balance 1100 ml 450 ml 145 ml Exam Free Text/Dictation Constitutional: alert, frail, oriented Psych: min anxious Head: atraumatic, normocephalic Eyes: nl lids, nl sclera ENMT: mucosa pink and moist, nl nasal mucosa & septum Neck: non-tender, supple Respiratory: normal air movement Cardiovascular: nl pulses, regular rate and rhythm Gastrointestinal: non-tender, other (ileostomy, colostomy,ileal conduit -all ostomies pink and moist), soft, wound scan drainage, no erythema Genitourinary - Male: nl penis, nl scrotum; ileal conduit with mucous/sediment output Musculoskeletal: nl extremities to inspection, nl gait and stance Extremities: normal pulses, No edema Neurological: nl mental status, nl speech Skin: nl turgor, rash or lesions; lower abdomen wound; redness/irritation around ostomies Results Result Diagram: 04/23/17 0441 04/24/17 0437 OPAL CRUZ MD Apr 24, 2017 13:55
--- NOTE | 2017-04-24 14:15 | CONS ---
Date/Time of Note Date/Time of Note DATE: 04/24/17 TIME: 14:12 Assessment/Plan Assessment/Plan Chief Complaint/Hosp Course ID PROGRESS NOTE CURRENT ABX: => Levaquin + Ertapenem S/P DAY # 11 => Zyvox + Merrem -> DC' 04/09/17 pm 24H INTERVAL SUMMARY * Calm, resting comfortably in bed, no fevers, VSS, no complaints * Family in room, tell me he is doing well, no problems * 04/18/17 URINE Cx: URINE CULTURE Final Organism 1 ESCHERICHIA COLI (ESBL) COLONY COUNT >100,000 CFU/ml . MULTI DRUG RESISTANT ORGANISM Organism 2 STENOTROPHOMONAS MALTOPHILIA COLONY COUNT >100,000 CFU/ml ECOLI ESBL STENMAL M.I.C. RX M.I.C. RX --------- --- --------- --- AMPICILLIN >=32 R CEFAZOLIN R CEFEPIME 8 S CEFOTAXIME R CIPROFLOXACIN >=4 R GENTAMICIN <=1 S IMIPENEM <=0.25 S LEVOFLOXACIN >=8 R 1 S NITROFURANTOIN <=16 S TOBRAMYCIN <=1 S TRIMETHOPRIM/SULFAMETHOXAZOLE <=20 S <=20 S PIPERACILLIN/TAZOBACTAM <=4 S PHYSICAL EXAMINATION: GENERAL: Frail, cachectic M, lethargic, awakens, A/A/O -> VSS, no fevers, NAD HEENT: Bilateral temporal wasting NECK: Supple, full ROM CHEST: Equal chest rise bilaterally, without dyspnea on room air CV: Radial pulse RRR ABD: Soft, colostomy, ileostomy conduit : Deferred, no FC EXT: Warm, no C/C/E, ambulatory moves all extremities SKIN: No rash, no diaphoresis ID ASSESSMENT 66 yo M w/ PMHx bladder cancer re-admitted with: 1. SIS w/ low grade temps 99.0+ range + Leukocytosis 2/2 Recurrent complicated urinary tract infection. * 04/18/17 URINE Cx: URINE CULTURE Final Organism 1 ESCHERICHIA COLI (ESBL) COLONY COUNT >100,000 CFU/ml . MULTI DRUG RESISTANT ORGANISM Organism 2 STENOTROPHOMONAS MALTOPHILIA COLONY COUNT >100,000 CFU/ml * 03/30/17 BCx (-) * 03/30/17 URINE CULTURE Final * Organism 1 ESCHERICHIA COLI (ESBL) 10,000 - 20,000 CFU/ml * Organism 2 ENTEROCOCCUS SPECIES >100,000 CFU/ml 2. History of perforated viscus repair with multiple pelvic abscess drainage * s/p 01/05/18 Perforated viscous with leak s/p ex lap, extensive lysis adhesions , small bowel proximal looped ostomy 01/05/17 * Colostomy state=> Stable * Open ABD wound => local wound care treatment 3. Bladder/Prostate Cancer * s/p chemotherapy/radiation where he sustained urethral damage as well as fecal and urinary incontinence as a result of chemo/radiation treatment. * s/p cystoprostatectomy with urinary diversion prior admission * Ileostomy conduit w/pink stoma 4. Acute renal failure=> Hx of obstructive uropathy w/bilateral JJ stents prior admission * CT of the abdomen and pelvis revealed mild bilateral hydronephrosis and bilateral ureteral stents. 5. Generalized weakness w/debility + cachexia w/ hypoalbuminemia: malnutrition + failure to thrive * TPN dependent 6. Microcytic anemia: 2/2 chronic disease + chemo/radiation +/- post-surgical; h/h stable 7. Transaminitis 8. Osteoarthritis: DJD spine (-)MRSA Nares Screen CURRENT ABX: Levaquin + Ertapenem S/P DAY # 11 => Zyvox + Merrem -> DC' 04/09/17 pm ID RECOMMENDATIONS 1.Continue ABX over the weekend, ID team will continue to follow and make future recommendations 2. Per surgery notes prior admission, the plan was to anticipate TPN 6 mos ? Possible repeat exploration future? 3. Continue local ABD wound care -> ostomy sites leaking w/local skin irritation . . Problems: Consultation Date/Type/Reason Admit Date/Time Mar 30, 2017 at 02:24 Initial Consult Date 04/01/17 Referring Provider: ALLISON HAYWARD Exam/Review of Systems Vital Signs Vitals Vital Signs Date Time Temp Pulse Resp B/P Pulse Ox O2 Delivery O2 Flow Rate FiO2 04/24/17 08:00 99.5 70 21 96/50 98 04/23/17 07:17 Room Air Intake and Output 04/23/17 04/23/17 04/24/17 15:00 23:00 07:00 Intake Total 1100 ml 1250 ml 1715 ml Output Total 800 ml 1570 ml Balance 1100 ml 450 ml 145 ml Results Result Diagram: 04/23/17 0441 04/24/17 0437 Results 24 hrs Laboratory Tests Test 04/23/17 17:36 04/23/17 20:59 04/24/17 04:37 04/24/17 08:43 Bedside Glucose 141 138 139 Sodium Level 142 Potassium Level 4.4 Chloride Level 106 Carbon Dioxide Level 23 Anion Gap 17 H Blood Urea Nitrogen 58 H Creatinine 2.02 H Glucose Level 122 Calcium Level 9.8 Phosphorus Level 3.6 Magnesium Level 1.9 Prealbumin 19.1 Triglycerides Level 163 H Test 04/24/17 12:43 Bedside Glucose 109 Medications Medications Current Medications Ondansetron HCl (Zofran Inj) 4 mg Q6H PRN IV NAUSEA AND/OR VOMITING Last administered on 04/23/17 22:21; Admin Dose 4 MG; Start 03/30/17 at 03:30 Heparin Sodium (Porcine) (Heparin (5000 Units/0.5 ml)) 5,000 unit DAILY SC Last administered on 04/24/17 10:05; Admin Dose 5,000 UNIT; Start 03/30/17 at 09:00 Oxycodone/ Acetaminophen 1 tab 1 tab Q4H PRN PO PAIN Last administered on 04/23 22:17; Admin Dose 1 TAB; Start 03/30/17 at 06:00 Total Parenteral Nutrition (Tpn) 1,000 ml @ 70 mls/hr [id number] IV Last administered on 04/24/17 03:49; Admin Dose 70 MLS/HR; Start 03/31/17 at 15:00 Insulin Glargine (Lantus) 10 unit HS SC Last administered on 04/23/17 21:26; Admin Dose 10 UNIT; Start 04/01/17 at 21:00 Miscellaneous Information 1 ea NOTE XX ; Start 03/31/17 at 21:00 Glucose (Glutose) 15 gm Q15M PRN PO DECREASED GLUCOSE; Start 03/31/17 at 21:00 Glucose (Glutose) 22.5 gm Q15M PRN PO DECREASED GLUCOSE; Start 03/31/17 at 21: 00 Dextrose (D50w Syringe) 25 ml Q15M PRN IV DECREASED GLUCOSE; Start 03/31/17 at 21:00 Dextrose (D50w Syringe) 50 ml Q15M PRN IV DECREASED GLUCOSE; Start 03/31/17 at 21:00 Glucagon (Glucagen) 1 mg Q15M PRN IM DECREASED GLUCOSE; Start 03/31/17 at 21: 00 Glucose (Glutose) 15 gm Q15M PRN BUCCAL DECREASED GLUCOSE; Start 03/31/17 at 21:00 Diagnostic Test (Pha) (Accu-Chek) 1 ea 02 XX Last administered on 04/22/17 02 :00; Admin Dose 1 EA; Start 04/06/17 at 02:00 Ascorbic Acid (Vitamin C) 500 mg DAILY PO Last administered on 04/24/17 09:58 ; Admin Dose 500 MG; Start 04/11/17 at 09:00 Zinc Sulfate (Zinc Sulfate) 220 mg DAILY PO Last administered on 04/24/17 09: 58; Admin Dose 220 MG; Start 04/11/17 at 09:00 Fentanyl (Duragesic 25 Mcg/Hr Patch) 1 patch Q3D TRANSDERM Last administered on 04/23/17 17:50; Admin Dose 1 PATCH; Start 04/11/17 at 17:00 Loperamide HCl (Imodium Cap) 2 mg TID PO Last administered on 04/24/17 09:58 ; Admin Dose 2 MG; Start 04/15/17 at 13:00 Nystatin 1 applic 1 applic PRN TOP Last administered on 04/19/17 13:17; Admin Dose 1 APPLIC; Start 04/16/17 at 16:30 Ertapenem/Sodium Chloride (Invanz/NS) 100 ml @ 200 mls/hr Q24H IVPB Last administered on 04/23/17 13:53; Admin Dose 200 MLS/HR; Start 04/19/17 at 14: 00 Acetaminophen (Tylenol Tab) 650 mg Q6H PRN PO PAIN AND OR ELEVATED TEMP Last administered on 04/20/17 22:42; Admin Dose 650 MG; Start 04/20/17 at 22:00 Lactobacillus Acidophilus 1 each 1 each BID PO Last administered on 04/24/17 09:58; Admin Dose 1 EACH; Start 04/21/17 at 21:00 Sodium Chloride (NS) 1,000 ml @ 75 mls/hr [id number] IV Last administered on t 07:28; Admin Dose 75 MLS/HR; Start 04/23/17 at 16:00; Stop 04/24/17 at 21:19 Levofloxacin (Levaquin) 500 mg Q2D@06 PO ; Start 04/25/17 at 06:00 MELO KANG NP Apr 24, 2017 14:15
[2017-04-24 14:33] VITALS: BP 94/51; RESP 18
[2017-04-24] MEDS: ERTAPENEM SODIUM 1 GM in SOD CHLORIDE 0.9% 100 ML IVPB SCH (14:33)
--- NOTE | 2017-04-24 15:10 | CONS ---
Date/Time of Note Date/Time of Note DATE: 04/24/17 TIME: 15:04 Assessment/Plan Assessment/Plan Additional Assessment/Plan 1. acute kidney injury Non oliguric .2/2 ATN+ prerenal azotemia 2. H/o ESBL UTI 3.history of bladder cancer s/p TURBT, chemotherapy/radiation, urethral damage, chemo/radiation induced urinary and fecal incontinence. He underwent cystoprostatectomy with urinary diversion, ileal conduit, colonic diversion for fistula on last admission 4. Anemia of Chronic disease 5. Severe protein calorie malnutrition Plan: -Off abx now -on TPN -cr bumped to 2.15 yesterday- getting 2 liter IVF NS- today Cr 2.02 -will continue to follow up Consultation Date/Type/Reason Admit Date/Time Mar 30, 2017 at 02:24 Initial Consult Date 03/30/17 Type of Consultation: NEPHROLOGY Referring Provider: ALLISON HAYWARD 24 HR Interval Summary Free Text/Dictation getting 2 liter IVF NS, BP stable, cr slightly improved from 2.15 to 2.02 Exam/Review of Systems Vital Signs Vitals Vital Signs Date Time Temp Pulse Resp B/P Pulse Ox O2 Delivery O2 Flow Rate FiO2 04/24/17 14:33 98.7 68 18 94/51 96 04/23/17 07:17 Room Air Intake and Output 04/23/17 04/23/17 04/24/17 15:00 23:00 07:00 Intake Total 1100 ml 1250 ml 1715 ml Output Total 800 ml 1570 ml Balance 1100 ml 450 ml 145 ml Exam Constitutional: weak. No acute distress. He is cachectic) Head: atraumatic, normocephalic Eyes: EOMI, PERRL Respiratory: clear to auscultation, normal air movement Cardiovascular: nl pulses, regular rate and rhythm Gastrointestinal: other (Scaphoid abdomen. Urostomy, colostomy and ileal conduit) Extremities: normal pulses + PICC line in place , on TPN Results Result Diagram: 04/23/17 0441 04/24/17 0437 Results 24 hrs Laboratory Tests Test 04/23/17 17:36 04/23/17 20:59 04/24/17 04:37 04/24/17 08:43 Bedside Glucose 141 138 139 Sodium Level 142 Potassium Level 4.4 Chloride Level 106 Carbon Dioxide Level 23 Anion Gap 17 H Blood Urea Nitrogen 58 H Creatinine 2.02 H Glucose Level 122 Calcium Level 9.8 Phosphorus Level 3.6 Magnesium Level 1.9 Prealbumin 19.1 Triglycerides Level 163 H Test 04/24/17 12:43 Bedside Glucose 109 Medications Medications Current Medications Ondansetron HCl (Zofran Inj) 4 mg Q6H PRN IV NAUSEA AND/OR VOMITING Last administered on 04/23/17 22:21; Admin Dose 4 MG; Start 03/30/17 at 03:30 Heparin Sodium (Porcine) (Heparin (5000 Units/0.5 ml)) 5,000 unit DAILY SC Last administered on 04/24/17 10:05; Admin Dose 5,000 UNIT; Start 03/30/17 at 09:00 Oxycodone/ Acetaminophen 1 tab 1 tab Q4H PRN PO PAIN Last administered on 04/23 22:17; Admin Dose 1 TAB; Start 03/30/17 at 06:00 Total Parenteral Nutrition (Tpn) 1,000 ml @ 70 mls/hr [id number] IV Last administered on 04/24/17 03:49; Admin Dose 70 MLS/HR; Start 03/31/17 at 15:00 Insulin Glargine (Lantus) 10 unit HS SC Last administered on 04/23/17 21:26; Admin Dose 10 UNIT; Start 04/01/17 at 21:00 Miscellaneous Information 1 ea NOTE XX ; Start 03/31/17 at 21:00 Glucose (Glutose) 15 gm Q15M PRN PO DECREASED GLUCOSE; Start 03/31/17 at 21:00 Glucose (Glutose) 22.5 gm Q15M PRN PO DECREASED GLUCOSE; Start 03/31/17 at 21: 00 Dextrose (D50w Syringe) 25 ml Q15M PRN IV DECREASED GLUCOSE; Start 03/31/17 at 21:00 Dextrose (D50w Syringe) 50 ml Q15M PRN IV DECREASED GLUCOSE; Start 03/31/17 at 21:00 Glucagon (Glucagen) 1 mg Q15M PRN IM DECREASED GLUCOSE; Start 03/31/17 at 21: 00 Glucose (Glutose) 15 gm Q15M PRN BUCCAL DECREASED GLUCOSE; Start 03/31/17 at 21:00 Diagnostic Test (Pha) (Accu-Chek) 1 ea 02 XX Last administered on 04/22/17 02 :00; Admin Dose 1 EA; Start 04/06/17 at 02:00 Ascorbic Acid (Vitamin C) 500 mg DAILY PO Last administered on 04/24/17 09:58 ; Admin Dose 500 MG; Start 04/11/17 at 09:00 Zinc Sulfate (Zinc Sulfate) 220 mg DAILY PO Last administered on 04/24/17 09: 58; Admin Dose 220 MG; Start 04/11/17 at 09:00 Fentanyl (Duragesic 25 Mcg/Hr Patch) 1 patch Q3D TRANSDERM Last administered on 04/23/17 17:50; Admin Dose 1 PATCH; Start 04/11/17 at 17:00 Loperamide HCl (Imodium Cap) 2 mg TID PO Last administered on 04/24/17 14:32 ; Admin Dose 2 MG; Start 04/15/17 at 13:00 Nystatin 1 applic 1 applic PRN TOP Last administered on 04/19/17 13:17; Admin Dose 1 APPLIC; Start 04/16/17 at 16:30 Ertapenem/Sodium Chloride (Invanz/NS) 100 ml @ 200 mls/hr Q24H IVPB Last administered on 04/24/17 14:33; Admin Dose 200 MLS/HR; Start 04/19/17 at 14: 00 Acetaminophen (Tylenol Tab) 650 mg Q6H PRN PO PAIN AND OR ELEVATED TEMP Last administered on 04/20/17 22:42; Admin Dose 650 MG; Start 04/20/17 at 22:00 Lactobacillus Acidophilus 1 each 1 each BID PO Last administered on 04/24/17 09:58; Admin Dose 1 EACH; Start 04/21/17 at 21:00 Sodium Chloride (NS) 1,000 ml @ 75 mls/hr [id number] IV Last administered on 07:28; Admin Dose 75 MLS/HR; Start 04/23/17 at 16:00; Stop 04/24/17 at 21:19 Levofloxacin (Levaquin) 500 mg Q2D@06 PO ; Start 04/25/17 at 06:00 MARGOT WOMACK MD Apr 24, 2017 15:10
[2017-04-24] MEDS: ONDANSETRON 4 MG INJ IV PRN (18:20)
[2017-04-24] MEDS: OXYCODONE/ACETAMINOPHEN (5/325) TAB PO PRN (18:20)
[2017-04-24 19:20] VITALS: BP 88/53; RESP 18
[2017-04-24] MEDS: INSULIN GLARGINE [LANtus] 3 ML PEN SC SCH (22:16)
[2017-04-25] MEDS: ACCUCHECK AT 2AM (Patients on SS coverage) XX SCH (02:00)
[2017-04-25 02:27] VITALS: BP 97/55; RESP 18
[2017-04-25 05:31] LABS: CALCIUM 9.8 mg/dl (8.4-10.2); CREATININE 1.83 mg/dl (0.61-1.24); MAGNESIUM 1.9 mg/dl (1.7-2.5); PHOSPHORUS 3.6 mg/dl (2.5-4.9); POTASSIUM 4.1 mmol/L (3.5-5.1)
[2017-04-25] MEDS: LEVOFLOXACIN 500 MG TAB PO SCH (06:29)
[2017-04-25 07:36] VITALS: BP 94/50; RESP 20
[2017-04-25] MEDS: Insulin NOVOLOG SS MODERATE Algorithm (SS with meals and bedtime) SC SCH ×4 (07:50→21:13)
[2017-04-25] MEDS: TPN 1,000 ML IV SCH ×3 (08:58→23:53)
[2017-04-25] MEDS: ZINC SULFATE 220 MG CAP PO SCH (08:58)
[2017-04-25] MEDS: ASCORBIC ACID 500 MG TAB PO SCH (08:58)
[2017-04-25] MEDS: LOPERAMIDE 2 MG CAP PO SCH ×3 (08:58→20:54)
[2017-04-25] MEDS: L ACIDOPHIL/B LACTIS/B LONGUM CAPSULE PO SCH ×2 (08:58→21:14)
[2017-04-25] MEDS: HEPARIN 5,000 UNIT/0.5 ML VIAL SC SCH (08:59)
[2017-04-25] MEDS: ONDANSETRON 4 MG INJ IV PRN ×2 (09:18→18:51)
--- NOTE | 2017-04-25 09:52 | PN ---
Date/Time of Note Date/Time of Note DATE: 04/25/17 TIME: 09:51 Assessment/Plan VTE Prophylaxis VTE Prophylaxis Intervention: heparin Lines/Catheters IV [facility] PICC Line Central line still needed: Yes Urinary Cath still in place: No Assessment/Plan Chief Complaint/Hosp Course 1. Complicated urinary tract infection with polymicrobial's including E. coli ESBL. Status post antimicrobials as per infectious diseases. Repeat urine cultures also showing ESBL. Therefore, the patient was restarted on carbapenems. 2. Acute nonoliguric kidney injury. Etiology unclear. The patient being followed by nephrology. Use nephrotoxic drugs with caution. 3. Bladder cancer. Status post radical cystoprostatectomy and creation of ileal conduit with colonic diversion for fistula formation. To be evaluated by Urology. 4. Status post perforated viscus repair complicated by intra-abdominal abscess requiring CT-guided drainage on previous admission. The patient has an abdominal wound vac in place. Being followed by surgery. 5. Severe protein calorie malnutrition. Patient on TPN. The patient on a mechanical soft diet. 6. Normocytic anemia. Etiology unclear. Probably anemia of chronic disease. 7. Fluids, electrolytes, and nutrition. TPN. Mechanical soft diet. 8. DVT prophylaxis. Subcutaneous heparin. 9. Plan. Continue antimicrobials as per ID. Await urology input. Checked with surgery. Surgery recommending to continue TPN until the patient has adequate calorie intake and absorption. Dr. Oakes with Dr. Rich has seen the patient on 04/24/2017. Dr. Rich will update the family on 04/26/2017. Case discussed with Dr. Baez. Problems: Subjective 24 Hr Interval Summary Free Text/Dictation The patient had a low grade fever in the morning. Exam/Review of Systems Vital Signs Vitals Vital Signs Date Time Temp Pulse Resp B/P Pulse Ox O2 Delivery O2 Flow Rate FiO2 04/25/17 07:36 99.9 54 20 94/50 93 04/23/17 07:17 Room Air Intake and Output 04/24/17 04/24/17 04/25/17 15:00 23:00 07:00 Intake Total 200 ml 3260 ml 1530 ml Output Total 1900 ml 1050 ml Balance 200 ml 1360 ml 480 ml Exam General:, Thin, frail looking 66 year-old male lying in bed in no apparent distress. HEENT: Normocephalic, atraumatic. Eyes: Anicteric sclerae, conjunctivae clear. ENT: Nasal septum midline, oral mucosa moist. Neck supple, no JVD noticed. Respiratory: Bilaterally diminished breath sounds. No use of accessory muscles of respiration. No adventitious breath sounds. Cardiovascular: S1, S2 heard. No murmurs or gallops. Abdomen: Soft, nontender, and nondistended. Abdominal wall wound Vac. Ileostomy draining light brown liquid output (less amount). Colostomy pink bud moist. Ileal conduit. Genitourinary: Deferred. Extremities: No cyanosis, no clubbing, no edema. Peripheral pulses palpable. Neurologic: Cranial nerves II through XII grossly intact. The patient is awake, alert, and oriented. Skin: Normal skin turgor. No skin rashes. Results Result Diagram: 04/23/17 0441 04/25/17 0432 Results 24 hrs Laboratory Tests Test 04/24/17 12:43 04/24/17 18:00 04/24/17 21:54 04/25/17 04:32 Bedside Glucose 109 99 127 Sodium Level 142 Potassium Level 4.1 Chloride Level 110 Carbon Dioxide Level 23 Anion Gap 13 Blood Urea Nitrogen 54 H Creatinine 1.83 H Glucose Level 126 Calcium Level 9.8 Phosphorus Level 3.6 Magnesium Level 1.9 Test 04/25/17 08:57 Bedside Glucose 125 Medications Medications Current Medications Ondansetron HCl (Zofran Inj) 4 mg Q6H PRN IV NAUSEA AND/OR VOMITING Last administered on 04/25/17 09:18; Admin Dose 4 MG; Start 03/30/17 at 03:30 Heparin Sodium (Porcine) (Heparin (5000 Units/0.5 ml)) 5,000 unit DAILY SC Last administered on 04/25/17 08:59; Admin Dose 5,000 UNIT; Start 03/30/17 at 09:00 Oxycodone/ Acetaminophen 1 tab 1 tab Q4H PRN PO PAIN Last administered on 04/24 18:20; Admin Dose 1 TAB; Start 03/30/17 at 06:00 Total Parenteral Nutrition (Tpn) 1,000 ml @ 70 mls/hr [id number] IV Last administered on 04/25/17 08:58; Admin Dose 70 MLS/HR; Start 03/31/17 at 15:00 Insulin Glargine (Lantus) 10 unit HS SC Last administered on 04/24/17 22:16; Admin Dose 10 UNIT; Start 04/01/17 at 21:00 Miscellaneous Information 1 ea NOTE XX ; Start 03/31/17 at 21:00 Glucose (Glutose) 15 gm Q15M PRN PO DECREASED GLUCOSE; Start 03/31/17 at 21:00 Glucose (Glutose) 22.5 gm Q15M PRN PO DECREASED GLUCOSE; Start 03/31/17 at 21: 00 Dextrose (D50w Syringe) 25 ml Q15M PRN IV DECREASED GLUCOSE; Start 03/31/17 at 21:00 Dextrose (D50w Syringe) 50 ml Q15M PRN IV DECREASED GLUCOSE; Start 03/31/17 at 21:00 Glucagon (Glucagen) 1 mg Q15M PRN IM DECREASED GLUCOSE; Start 03/31/17 at 21: 00 Glucose (Glutose) 15 gm Q15M PRN BUCCAL DECREASED GLUCOSE; Start 03/31/17 at 21:00 Diagnostic Test (Pha) (Accu-Chek) 1 ea 02 XX Last administered on 04/22/17 02 :00; Admin Dose 1 EA; Start 04/06/17 at 02:00 Ascorbic Acid (Vitamin C) 500 mg DAILY PO Last administered on 04/25/17 08:58 ; Admin Dose 500 MG; Start 04/11/17 at 09:00 Zinc Sulfate (Zinc Sulfate) 220 mg DAILY PO Last administered on 04/25/17 08: 58; Admin Dose 220 MG; Start 04/11/17 at 09:00 Fentanyl (Duragesic 25 Mcg/Hr Patch) 1 patch Q3D TRANSDERM Last administered on 04/23/17 17:50; Admin Dose 1 PATCH; Start 04/11/17 at 17:00 Loperamide HCl (Imodium Cap) 2 mg TID PO Last administered on 04/25/17 08:58 ; Admin Dose 2 MG; Start 04/15/17 at 13:00 Nystatin 1 applic 1 applic PRN TOP Last administered on 04/19/17 13:17; Admin Dose 1 APPLIC; Start 04/16/17 at 16:30 Ertapenem/Sodium Chloride (Invanz/NS) 100 ml @ 200 mls/hr Q24H IVPB Last administered on 04/24/17 14:33; Admin Dose 200 MLS/HR; Start 04/19/17 at 14: 00 Acetaminophen (Tylenol Tab) 650 mg Q6H PRN PO PAIN AND OR ELEVATED TEMP Last administered on 04/20/17 22:42; Admin Dose 650 MG; Start 04/20/17 at 22:00 Lactobacillus Acidophilus (Florajen3 Capsule) 1 each BID PO Last administered on 04/25/17 08:58; Admin Dose 1 EACH; Start 04/21/17 at 21:00 Levofloxacin (Levaquin) 500 mg Q2D@06 PO Last administered on 04/25/17 06:29 ; Admin Dose 500 MG; Start 04/25/17 at 06:00 BRENDA PETTIT NP Apr 25, 2017 09:52
[2017-04-25] MEDS: OXYCODONE/ACETAMINOPHEN (5/325) TAB PO PRN ×2 (11:33→18:51)
[2017-04-25] MEDS: ERTAPENEM SODIUM 1 GM in SOD CHLORIDE 0.9% 100 ML IVPB SCH (13:57)
--- NOTE | 2017-04-25 16:28 | CONS ---
Date/Time of Note Date/Time of Note DATE: 04/25/17 TIME: 16:22 Assessment/Plan Assessment/Plan Chief Complaint/Hosp Course Assessment/Plan Chief Complaint/Hosp Course ID PROGRESS NOTE 24H INTERVAL SUMMARY * Calm, resting comfortably in bed. No acute distress. Has a Fever with Temperature of 99.9 today. * 04/18/17 URINE Cx: URINE CULTURE Final Organism 1 ESCHERICHIA COLI (ESBL) COLONY COUNT >100,000 CFU/ml . MULTI DRUG RESISTANT ORGANISM Organism 2 STENOTROPHOMONAS MALTOPHILIA COLONY COUNT >100,000 CFU/ml ECOLI ESBL STENMAL M.I.C. RX M.I.C. RX --------- --- --------- --- AMPICILLIN >=32 R CEFAZOLIN R CEFEPIME 8 S CEFOTAXIME R CIPROFLOXACIN >=4 R GENTAMICIN <=1 S IMIPENEM <=0.25 S LEVOFLOXACIN >=8 R 1 S NITROFURANTOIN <=16 S TOBRAMYCIN <=1 S TRIMETHOPRIM/SULFAMETHOXAZOLE <=20 S <=20 S PIPERACILLIN/TAZOBACTAM <=4 S PHYSICAL EXAMINATION: GENERAL: Frail, cachectic M, lethargic, awakens, A/A/O -> VSS, no fevers, NAD HEENT: Bilateral temporal wasting NECK: Supple, full ROM CHEST: Equal chest rise bilaterally, without dyspnea on room air CV: Radial pulse RRR ABD: Soft, colostomy, ileostomy conduit : Deferred, no FC EXT: Warm, no C/C/E, ambulatory moves all extremities SKIN: No rash, no diaphoresis ID ASSESSMENT 66 yo M w/ PMHx bladder cancer re-admitted with: 1. SIS w/ low grade temps 99.0+ range + Leukocytosis 2/2 Recurrent complicated urinary tract infection. * 04/18/17 URINE Cx: URINE CULTURE Final Organism 1 ESCHERICHIA COLI (ESBL) COLONY COUNT >100,000 CFU/ml . MULTI DRUG RESISTANT ORGANISM Organism 2 STENOTROPHOMONAS MALTOPHILIA COLONY COUNT >100,000 CFU/ml * 03/30/17 BCx (-) * 03/30/17 URINE CULTURE Final * Organism 1 ESCHERICHIA COLI (ESBL) 10,000 - 20,000 CFU/ml * Organism 2 ENTEROCOCCUS SPECIES >100,000 CFU/ml 2. History of perforated viscus repair with multiple pelvic abscess drainage * s/p 01/05/18 Perforated viscous with leak s/p ex lap, extensive lysis adhesions , small bowel proximal looped ostomy 01/05/17 * Colostomy state=> Stable * Open ABD wound => local wound care treatment 3. Bladder/Prostate Cancer * s/p chemotherapy/radiation where he sustained urethral damage as well as fecal and urinary incontinence as a result of chemo/radiation treatment. * s/p cystoprostatectomy with urinary diversion prior admission * Ileostomy conduit w/pink stoma 4. Acute renal failure=> Hx of obstructive uropathy w/bilateral JJ stents prior admission * CT of the abdomen and pelvis revealed mild bilateral hydronephrosis and bilateral ureteral stents. 5. Generalized weakness w/debility + cachexia w/ hypoalbuminemia: malnutrition + failure to thrive * TPN dependent 6. Microcytic anemia: 2/2 chronic disease + chemo/radiation +/- post-surgical; h/h stable 7. Transaminitis 8. Osteoarthritis: DJD spine 9. Fever (-)MRSA Nares Screen CURRENT ABX: Levaquin + Ertapenem S/P DAY # 11 => Zyvox + Merrem -> DC' 04/09/17 pm ID RECOMMENDATIONS 1.Continue Antibiotics. Pain management. 2. Possible continuation of TPN for 6 month as per surgery recommendations. 3. Continue Abdominal wound care. GI Prophylaxis. DVT prophylaxis. Problems: Consultation Date/Type/Reason Admit Date/Time Mar 30, 2017 at 02:24 Initial Consult Date 04/01/17 Type of Consultation: id Referring Provider: ALLISON HAYWARD Exam/Review of Systems Vital Signs Vitals Vital Signs Date Time Temp Pulse Resp B/P Pulse Ox O2 Delivery O2 Flow Rate FiO2 04/25/17 07:36 99.9 54 20 94/50 93 04/23/17 07:17 Room Air Intake and Output 04/24/17 04/24/17 04/25/17 15:00 23:00 07:00 Intake Total 200 ml 3260 ml 1530 ml Output Total 1900 ml 1050 ml Balance 200 ml 1360 ml 480 ml Results Result Diagram: 04/23/17 0441 04/25/17 0432 Results 24 hrs Laboratory Tests Test 04/24/17 18:00 04/24/17 21:54 04/25/17 04:32 04/25/17 08:57 Bedside Glucose 99 127 125 Sodium Level 142 Potassium Level 4.1 Chloride Level 110 Carbon Dioxide Level 23 Anion Gap 13 Blood Urea Nitrogen 54 H Creatinine 1.83 H Glucose Level 126 Calcium Level 9.8 Phosphorus Level 3.6 Magnesium Level 1.9 Test 04/25/17 13:12 Bedside Glucose 177 Medications Medications Current Medications Ondansetron HCl (Zofran Inj) 4 mg Q6H PRN IV NAUSEA AND/OR VOMITING Last administered on 04/25/17 09:18; Admin Dose 4 MG; Start 03/30/17 at 03:30 Heparin Sodium (Porcine) (Heparin (5000 Units/0.5 ml)) 5,000 unit DAILY SC Last administered on 04/25/17 08:59; Admin Dose 5,000 UNIT; Start 03/30/17 at 09:00 Oxycodone/ Acetaminophen 1 tab 1 tab Q4H PRN PO PAIN Last administered on 04/25 11:33; Admin Dose 1 TAB; Start 03/30/17 at 06:00 Total Parenteral Nutrition (Tpn) 1,000 ml @ 70 mls/hr [id number] IV Last administered on 04/25/17 08:58; Admin Dose 70 MLS/HR; Start 03/31/17 at 15:00 Insulin Glargine (Lantus) 10 unit HS SC Last administered on 04/24/17 22:16; Admin Dose 10 UNIT; Start 04/01/17 at 21:00 Miscellaneous Information 1 ea NOTE XX ; Start 03/31/17 at 21:00 Glucose (Glutose) 15 gm Q15M PRN PO DECREASED GLUCOSE; Start 03/31/17 at 21:00 Glucose (Glutose) 22.5 gm Q15M PRN PO DECREASED GLUCOSE; Start 03/31/17 at 21: 00 Dextrose (D50w Syringe) 25 ml Q15M PRN IV DECREASED GLUCOSE; Start 03/31/17 at 21:00 Dextrose (D50w Syringe) 50 ml Q15M PRN IV DECREASED GLUCOSE; Start 03/31/17 at 21:00 Glucagon (Glucagen) 1 mg Q15M PRN IM DECREASED GLUCOSE; Start 03/31/17 at 21: 00 Glucose (Glutose) 15 gm Q15M PRN BUCCAL DECREASED GLUCOSE; Start 03/31/17 at 21:00 Diagnostic Test (Pha) (Accu-Chek) 1 ea 02 XX Last administered on 04/22/17 02 :00; Admin Dose 1 EA; Start 04/06/17 at 02:00 Ascorbic Acid (Vitamin C) 500 mg DAILY PO Last administered on 04/25/17 08:58 ; Admin Dose 500 MG; Start 04/11/17 at 09:00 Zinc Sulfate (Zinc Sulfate) 220 mg DAILY PO Last administered on 04/25/17 08: 58; Admin Dose 220 MG; Start 04/11/17 at 09:00 Fentanyl (Duragesic 25 Mcg/Hr Patch) 1 patch Q3D TRANSDERM Last administered on 04/23/17 17:50; Admin Dose 1 PATCH; Start 04/11/17 at 17:00 Loperamide HCl (Imodium Cap) 2 mg TID PO Last administered on 04/25/17 13:14 ; Admin Dose 2 MG; Start 04/15/17 at 13:00 Nystatin 1 applic 1 applic PRN TOP Last administered on 04/19/17 13:17; Admin Dose 1 APPLIC; Start 04/16/17 at 16:30 Ertapenem/Sodium Chloride (Invanz/NS) 100 ml @ 200 mls/hr Q24H IVPB Last administered on 04/25/17 13:57; Admin Dose 200 MLS/HR; Start 04/19/17 at 14: 00 Acetaminophen (Tylenol Tab) 650 mg Q6H PRN PO PAIN AND OR ELEVATED TEMP Last administered on 04/20/17 22:42; Admin Dose 650 MG; Start 04/20/17 at 22:00 Lactobacillus Acidophilus (Florajen3 Capsule) 1 each BID PO Last administered on 04/25/17 08:58; Admin Dose 1 EACH; Start 04/21/17 at 21:00 Levofloxacin (Levaquin) 500 mg Q2D@06 PO Last administered on 04/25/17 06:29 ; Admin Dose 500 MG; Start 04/25/17 at 06:00 ANSON MOMIN NP Apr 25, 2017 16:28
--- NOTE | 2017-04-25 16:58 | CONS ---
Date/Time of Note Date/Time of Note DATE: 04/25/17 TIME: 16:57 Assessment/Plan Assessment/Plan Additional Assessment/Plan 1. acute kidney injury Non oliguric .2/2 ATN+ prerenal azotemia 2. H/o ESBL UTI 3.history of bladder cancer s/p TURBT, chemotherapy/radiation, urethral damage, chemo/radiation induced urinary and fecal incontinence. He underwent cystoprostatectomy with urinary diversion, ileal conduit, colonic diversion for fistula on last admission 4. Anemia of Chronic disease 5. Severe protein calorie malnutrition Plan: -Off abx now -on TPN -s/p 2 liter NS, Cr 1.83, BP stable -will continue to follow up Consultation Date/Type/Reason Admit Date/Time Mar 30, 2017 at 02:24 Initial Consult Date 03/30/17 Type of Consultation: NEPHROLOGY Referring Provider: ALLISON HAYWARD 24 HR Interval Summary Free Text/Dictation Cr 1.83, Bp stable,afebrile Exam/Review of Systems Vital Signs Vitals Vital Signs Date Time Temp Pulse Resp B/P Pulse Ox O2 Delivery O2 Flow Rate FiO2 04/25/17 07:36 99.9 54 20 94/50 93 04/23/17 07:17 Room Air Intake and Output 04/24/17 04/24/17 04/25/17 15:00 23:00 07:00 Intake Total 200 ml 3260 ml 1530 ml Output Total 1900 ml 1050 ml Balance 200 ml 1360 ml 480 ml Exam Constitutional: weak. No acute distress. He is cachectic) Head: atraumatic, normocephalic Eyes: EOMI, PERRL Respiratory: clear to auscultation, normal air movement Cardiovascular: nl pulses, regular rate and rhythm Gastrointestinal: other (Scaphoid abdomen. Urostomy, colostomy and ileal conduit) Extremities: normal pulses + PICC line in place , on TPN Results Result Diagram: 04/23/17 0441 04/25/17 0432 Results 24 hrs Laboratory Tests Test 04/24/17 18:00 04/24/17 21:54 04/25/17 04:32 04/25/17 08:57 Bedside Glucose 99 127 125 Sodium Level 142 Potassium Level 4.1 Chloride Level 110 Carbon Dioxide Level 23 Anion Gap 13 Blood Urea Nitrogen 54 H Creatinine 1.83 H Glucose Level 126 Calcium Level 9.8 Phosphorus Level 3.6 Magnesium Level 1.9 Test 04/25/17 13:12 Bedside Glucose 177 Medications Medications Current Medications Ondansetron HCl (Zofran Inj) 4 mg Q6H PRN IV NAUSEA AND/OR VOMITING Last administered on 04/25/17 09:18; Admin Dose 4 MG; Start 03/30/17 at 03:30 Heparin Sodium (Porcine) (Heparin (5000 Units/0.5 ml)) 5,000 unit DAILY SC Last administered on 04/25/17 08:59; Admin Dose 5,000 UNIT; Start 03/30/17 at 09:00 Oxycodone/ Acetaminophen 1 tab 1 tab Q4H PRN PO PAIN Last administered on 04/25 11:33; Admin Dose 1 TAB; Start 03/30/17 at 06:00 Total Parenteral Nutrition (Tpn) 1,000 ml @ 70 mls/hr [id number] IV Last administered on 04/25/17 08:58; Admin Dose 70 MLS/HR; Start 03/31/17 at 15:00 Insulin Glargine (Lantus) 10 unit HS SC Last administered on 04/24/17 22:16; Admin Dose 10 UNIT; Start 04/01/17 at 21:00 Miscellaneous Information 1 ea NOTE XX ; Start 03/31/17 at 21:00 Glucose (Glutose) 15 gm Q15M PRN PO DECREASED GLUCOSE; Start 03/31/17 at 21:00 Glucose (Glutose) 22.5 gm Q15M PRN PO DECREASED GLUCOSE; Start 03/31/17 at 21: 00 Dextrose (D50w Syringe) 25 ml Q15M PRN IV DECREASED GLUCOSE; Start 03/31/17 at 21:00 Dextrose (D50w Syringe) 50 ml Q15M PRN IV DECREASED GLUCOSE; Start 03/31/17 at 21:00 Glucagon (Glucagen) 1 mg Q15M PRN IM DECREASED GLUCOSE; Start 03/31/17 at 21: 00 Glucose (Glutose) 15 gm Q15M PRN BUCCAL DECREASED GLUCOSE; Start 03/31/17 at 21:00 Diagnostic Test (Pha) (Accu-Chek) 1 ea 02 XX Last administered on 04/22/17 02 :00; Admin Dose 1 EA; Start 04/06/17 at 02:00 Ascorbic Acid (Vitamin C) 500 mg DAILY PO Last administered on 04/25/17 08:58 ; Admin Dose 500 MG; Start 04/11/17 at 09:00 Zinc Sulfate (Zinc Sulfate) 220 mg DAILY PO Last administered on 04/25/17 08: 58; Admin Dose 220 MG; Start 04/11/17 at 09:00 Fentanyl (Duragesic 25 Mcg/Hr Patch) 1 patch Q3D TRANSDERM Last administered on 04/23/17 17:50; Admin Dose 1 PATCH; Start 04/11/17 at 17:00 Loperamide HCl (Imodium Cap) 2 mg TID PO Last administered on 04/25/17 13:14 ; Admin Dose 2 MG; Start 04/15/17 at 13:00 Nystatin 1 applic 1 applic PRN TOP Last administered on 04/19/17 13:17; Admin Dose 1 APPLIC; Start 04/16/17 at 16:30 Ertapenem/Sodium Chloride (Invanz/NS) 100 ml @ 200 mls/hr Q24H IVPB Last administered on 04/25/17 13:57; Admin Dose 200 MLS/HR; Start 04/19/17 at 14: 00 Acetaminophen (Tylenol Tab) 650 mg Q6H PRN PO PAIN AND OR ELEVATED TEMP Last administered on 04/20/17 22:42; Admin Dose 650 MG; Start 04/20/17 at 22:00 Lactobacillus Acidophilus (Florajen3 Capsule) 1 each BID PO Last administered on 04/25/17 08:58; Admin Dose 1 EACH; Start 04/21/17 at 21:00 Levofloxacin (Levaquin) 500 mg Q2D@06 PO Last administered on 04/25/17 06:29 ; Admin Dose 500 MG; Start 04/25/17 at 06:00 MARGOT WOMACK MD Apr 25, 2017 16:58
--- NOTE | 2017-04-25 17:52 | PN ---
Date/Time of Note Date/Time of Note DATE: 04/25/17 TIME: 17:51 Assessment/Plan Lines/Catheters IV Catheter Type (from Nrs): PICC Line Tomas in Place (from Nrs): No Assessment/Plan Chief Complaint/Hosp Course 1. Multiple ostomies and ileal conduit: all ostomies pink and moist; s/p multiple Perforated viscous w small bowel proximal looped ostomy (minimum 6 month wait prior to considering attempting abdominal re-exploration); rectal discharge; 2nd opinion surgical consult pending -continue ostomy care -continue oral feed and supplements; hopefully can wean off tpn for discharge to snf -continue local abdominal wound care-w vac -oral diet as tolerated with protein shakes and probiotics -oob/ambulate -urology consult-pending -TPN 2. UTI (polymicrobial, complicated)pink with mucous urine, cultures noted -abx/antimicrobials per sensitivity -frequent bladder emptying/cath care -urology 3. Malnutrition: tolerating solid diet;refusing supplements -continue tpn -vitamins, probiotics, and nutritional supplements -encourage supplements -calorie count; hopefully wean off tpn if able for dc to snf if unable to find snf that accepts tpn -started on antimotility agent and fish oil 4. MANA: worse today -judicious fluids -limit nephrotoxic meds -per renal 5. Bladder cancer: s/p chemo/radiation, s/p cystoprostatectomy with urinary diversion -per oncology/urology 6. Normocytic hypochromic anemia: no overt bleed noted -monitor -transfuse as needed -further workup per medical team 7. Pelvic pain:on fentanyl patch; still with pain; ? up titrate med -pain management 8. Min temp: cxr negative -further workup if fever spikes 9. Transaminitis -Monitor Thank you, Problems: Subjective 24 Hr Interval Summary 2nd opinion surgical consult pending. Low-grade fever. Abdominal pain. Min discharge from rectum on/off. No fevers, chills, sob, congested cough, cp, palpitations, craig, dizziness, n/v/d/dysuria. Exam/Review of Systems Vital Signs Vitals Vital Signs Date Time Temp Pulse Resp B/P Pulse Ox O2 Delivery O2 Flow Rate FiO2 04/25/17 07:36 99.9 54 20 94/50 93 04/23/17 07:17 Room Air Intake and Output 04/24/17 04/24/17 04/25/17 15:00 23:00 07:00 Intake Total 200 ml 3260 ml 1530 ml Output Total 1900 ml 1050 ml Balance 200 ml 1360 ml 480 ml Exam Free Text/Dictation Constitutional: alert, frail, oriented Psych: min anxious Head: atraumatic, normocephalic Eyes: nl lids, nl sclera ENMT: mucosa pink and moist, nl nasal mucosa & septum Neck: non-tender, supple Respiratory: normal air movement Cardiovascular: nl pulses, regular rate and rhythm Gastrointestinal: non-tender, other (ileostomy, colostomy,ileal conduit -all ostomies pink and moist), soft, wound scan drainage, no erythema Genitourinary - Male: nl penis, nl scrotum; ileal conduit with mucous/sediment output Musculoskeletal: nl extremities to inspection, nl gait and stance Extremities: normal pulses, No edema Neurological: nl mental status, nl speech Skin: nl turgor, rash or lesions; lower abdomen wound; redness/irritation around ostomies Results Result Diagram: 04/23/17 0441 04/25/17 0432 OPAL CRUZ MD Apr 25, 2017 17:52
[2017-04-25] MEDS: NYSTATIN 30 GM POWDER BTL TOP SCH (18:06)
[2017-04-25 20:00] VITALS: BP 87/52; RESP 18
[2017-04-25] MEDS: INSULIN GLARGINE [LANtus] 3 ML PEN SC SCH (21:14)
[2017-04-25 21:17] VITALS: BP 92/55; PULSE 65; RESP 17
[2017-04-26] MEDS: ACCUCHECK AT 2AM (Patients on SS coverage) XX SCH (02:00)
[2017-04-26] MEDS: OXYCODONE/ACETAMINOPHEN (5/325) TAB PO PRN ×3 (02:02→21:35)
[2017-04-26 02:10] VITALS: BP 90/55; RESP 19
[2017-04-26 05:58] LABS: BASOPHILS % 0.2 % (0.0-2.0); EOSINOPHILS # 0.1 10^3/ul (0.0-0.5); EOSINOPHILS % 1.6 % (0.0-7.0); HEMATOCRIT 26.8 % (42.0-52.0); HEMOGLOBIN 8.6 g/dl (14.0-18.0); LYMPHOCYTES # 1.7 10^3/ul (0.8-2.9); LYMPHOCYTES % 19.6 % (15.0-51.0); MEAN CORPUSCULAR HGB CONC 32.1 g/dl (32.0-37.0); MEAN CORPUSCULAR VOLUME 87.3 fl (82.0-101.0); MEAN PLATELET VOLUME 9.1 fl (7.4-10.4); MONOCYTE # 0.6 10^3/ul (0.3-0.9); MONOCYTES % 7.5 % (0.0-11.0); NEUTROPHIL # 5.9 10^3/ul (1.6-7.5); NEUTROPHILS % 69.5 % (39.0-77.0); PLATELET COUNT 306 10^3/UL (140-415); RED BLOOD COUNT 3.07 10^6/ul (4.70-6.10); WHITE BLOOD COUNT 8.5 10^3/ul (4.8-10.8)
[2017-04-26 06:47] LABS: PHOSPHORUS 3.3 mg/dl (2.5-4.9)
[2017-04-26] MEDS ORDERED: VITAMIN A & D 5 GM OINT PACKET TOP ONE (06:47)
[2017-04-26 06:51] LABS: CALCIUM 9.8 mg/dl (8.4-10.2); CREATININE 1.96 mg/dl (0.61-1.24); POTASSIUM 4.2 mmol/L (3.5-5.1)
[2017-04-26] MEDS: Insulin NOVOLOG SS MODERATE Algorithm (SS with meals and bedtime) SC SCH ×4 (08:30→21:00)
[2017-04-26] MEDS: ASCORBIC ACID 500 MG TAB PO SCH (09:03)
[2017-04-26] MEDS: ZINC SULFATE 220 MG CAP PO SCH (09:03)
[2017-04-26] MEDS: L ACIDOPHIL/B LACTIS/B LONGUM CAPSULE PO SCH ×2 (09:03→21:52)
[2017-04-26] MEDS: LOPERAMIDE 2 MG CAP PO SCH ×3 (09:03→21:05)
[2017-04-26] MEDS: HEPARIN 5,000 UNIT/0.5 ML VIAL SC SCH (09:05)
--- NOTE | 2017-04-26 10:26 | CONS ---
DATE OF ADMISSION: 03/30/2017 DATE OF CONSULTATION: 04/26/2017 REQUESTING PHYSICIAN: Bang Ross MD. PHYSICIAN PERFORMING CONSULTATION: Abril Bourgeois MD. CHIEF COMPLAINT: Urinary tract infection. HISTORY OF PRESENT ILLNESS: This is a 66-year-old male with history of bladder cancer, entero recta l fistula and history of cystectomy with ileal loop conduit urinary diversion. In 01/2017 the patient underwent a radical cystoprostatectomy with ileal conduit urinary diversion. At that time, he also underwent a colon as well as the end colostomy. 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 His rectosigmoid area was non-viable. During the c ystectomy, a colostomy was required. Subsequently, about 2 weeks after surgery, the patient develop ed an acute abdomen. He underwent exploratory laparotomy and ileostomy or a jejunostomy was created for the patient. His workup postoperatively revealed formation of an entero rectal fistula. Curre ntly due to a history of short bowel syndrome, the patient, although he is eating, he has required T PN for his severe malnutrition. After a few months of hospitalization, the patient was discharged home. However, within a few weeks , the patient was readmitted due to continued weakness and chills. He was initially admitted to [facility], then transferred back to [facility]. His urine culture had revealed ESBL E. coli, he was placed on antibiotics. He currently still has his bilateral ureteral stents in [facility]. The patient has not had any flank pain. He has not had any gross hematuria. His urostomy has been draining yellow urine with mucus. His ileostomy has been draining liquid stool. His colostomy has not been draining. He also drains intermittently some stool out of his rectum. Patient continues to have weakness. He is unable to ambulate well due to severe lower extremity wea kness and overall body weakness. He was also found to have an elevated creatinine of 1.83. His CT scan of abdomen and pelvis revealed mild bilateral hydronephrosis, no stones in the kidneys or the u reters were seen. The stents appeared to be well located. PAST MEDICAL HISTORY: Bladder cancer. PAST SURGICAL HISTORY: Previous TURBT, radiation to the pelvis for bladder cancer, cystectomy colos john, ileostomy. ALLERGIES: NO KNOWN DRUG ALLERGIES. SOCIAL HISTORY: No smoke, no alcohol. FAMILY HISTORY: Noncontributory. REVIEW OF SYSTEMS: CONSTITUTIONAL: The patient has had temps of around 99, low-grade temps, decreased appetite and fat igue. HEENT: No loss of hearing, no ear or sinus pain. No rhinorrhea, nosebleed or sore throat. CARDIOVASCULAR: No chest pain, no shortness of breath or heart palpitations. RESPIRATORY: No cough. No phlegm production, wheezing or hemoptysis. GASTROINTESTINAL: The patient has had intermittent abdominal pain and cramping. No nausea, no vomi ting recently. PSYCHIATRIC: The patient feels depressed over his situation. HEMATOLOGIC AND LYMPHATIC: No known bleeding problems. No easy bruising. No lymph node enlargemen t. PHYSICAL EXAMINATION: CONSTITUTIONAL: The patient appears to be in no acute distress, but appears to be cachectic. He do es not appear to be any more cachectic than his last exam about a month ago by myself. Maximum temp erature 99.2, current temperature 98.9, pulse rate of 70, blood pressure 95/55, saturating 98% on ro om air. GASTROINTESTINAL: Abdomen is soft, nondistended. The ostomies including colostomy, ileostomy and u rostomy are intact. The mucosa are pink. Lower abdominal wound is superficially opened with a dry dressing. NECK: Normal appearing, symmetric. Normal tracheal position. Thyroid no enlargement. EXTREMITIES: No edema. GENITOURINARY: Penis: No deformity, no lesions, no scarring. Testes descended bilaterally, nonten [place]. Urethral meatus normal in size and location. Scrotum: No lesions, no scarring. No cysts. DIAGNOSTIC DATA: White blood cell count 8.5, hemoglobin 8.6, hematocrit 28.6, creatinine 1.96, BUN 56. Urine culture from 04/18/2017: One culture showed ESBL E. coli. The other culture showed no g rowth. CT of abdomen and pelvis performed on 03/31/2017 revealed mild bilateral hydronephrosis with bilateral ureteral stents correctly located. No abdominal wall fluid collection is identified. ASSESSMENT: 1. Bladder cancer. 2. Entero rectal fistula. 3. Intraperitoneal adhesions. 4. Severe caloric malnutrition. 5. Previous extended-spectrum beta-lactamase Escherichia coli infection. 6. Azotemia with renal failure, creatinine 1.9. RECOMMENDATIONS: 1. Continue TPN and IV fluids. 2. Antibiotics per infectious disease consultation. 3. At this point, I have recommended to keep the ureteral stents in place. My concern is that due to the fact that patient has had multiple complications, that if the stents are removed, then his ur eters may scar down and obstruct his kidneys. This would then cause further renal failure. Dictated By: ABRIL BOURGEOIS MD SR/NTS Conf#: [id number] DID#: [id number] CC: ISIDORO LÓPEZ MD;*EndCC*
--- NOTE | 2017-04-26 13:41 | CONS ---
Date/Time of Note Date/Time of Note DATE: 04/26/17 TIME: 13:40 Consult Date/Type/Reason Admit Date/Time Mar 30, 2017 at 02:24 Initial Consult Date 04/01/17 Type of Consultation: ID Ordering Provider: ALLISON HAYWARD Objective Vital Signs Date Time Temp Pulse Resp B/P Pulse Ox O2 Delivery O2 Flow Rate FiO2 04/26/17 02:10 98.9 70 19 90/55 94 04/25/17 21:17 Room Air Intake and Output 04/25/17 04/25/17 04/26/17 15:00 23:00 07:00 Intake Total 320 ml 1400 ml 790 ml Output Total 1950 ml Balance 320 ml -550 ml 790 ml Results/Medications Result Diagram: 04/26/17 0448 04/26/178 Results 24 hrs Laboratory Tests Test 04/25/17 18:05 04/25/17 20:56 04/26/17 02:01 04/26/17 04:48 Bedside Glucose 114 185 113 White Blood Count 8.5 # Red Blood Count 3.07 L Hemoglobin 8.6 L Hematocrit 26.8 L Mean Corpuscular Volume 87.3 Mean Corpuscular Hemoglobin 28.0 L Mean Corpuscular Hemoglobin Concent 32.1 Red Cell Distribution Width 15.0 H Platelet Count 306 Mean Platelet Volume 9.1 Neutrophils % 69.5 Lymphocytes % 19.6 Monocytes % 7.5 Eosinophils % 1.6 Basophils % 0.2 Nucleated Red Blood Cells % 0.0 Neutrophils # 5.9 Lymphocytes # 1.7 Monocytes # 0.6 Eosinophils # 0.1 Basophils # 0.0 Nucleated Red Blood Cells # 0.0 Sodium Level 142 Potassium Level 4.2 Chloride Level 109 Carbon Dioxide Level 23 Anion Gap 14 Blood Urea Nitrogen 56 H Creatinine 1.96 H Glucose Level 120 Calcium Level 9.8 Phosphorus Level 3.3 Magnesium Level 2.0 Test 04/26/17 08:37 04/26/17 11:50 Bedside Glucose 113 119 Medications Current Medications Ondansetron HCl (Zofran Inj) 4 mg Q6H PRN IV NAUSEA AND/OR VOMITING Last administered on 04/25/17t 18:51; Admin Dose 4 MG; Start 03/30/17 at 03:30 Heparin Sodium (Porcine) (Heparin (5000 Units/0.5 ml)) 5,000 unit DAILY SC Last administered on 04/26/17 09:05; Admin Dose 5,000 UNIT; Start 03/30/17 at 09:00 Oxycodone/ Acetaminophen 1 tab 1 tab Q4H PRN PO PAIN Last administered on 04/26 09:03; Admin Dose 1 TAB; Start 03/30/17 at 06:00 Total Parenteral Nutrition (Tpn) 1,000 ml @ 70 mls/hr [id number] IV Last administered on 04/25/17 23:53; Admin Dose 70 MLS/HR; Start 03/31/17 at 15:00 Insulin Glargine (Lantus) 10 unit HS SC Last administered on 04/25/17 21:14; Admin Dose 10 UNIT; Start 04/01/17 at 21:00 Miscellaneous Information 1 ea NOTE XX ; Start 03/31/17 at 21:00 Glucose (Glutose) 15 gm Q15M PRN PO DECREASED GLUCOSE; Start 03/31/17 at 21:00 Glucose (Glutose) 22.5 gm Q15M PRN PO DECREASED GLUCOSE; Start 03/31/17 at 21: 00 Dextrose (D50w Syringe) 25 ml Q15M PRN IV DECREASED GLUCOSE; Start 03/31/17 at 21:00 Dextrose (D50w Syringe) 50 ml Q15M PRN IV DECREASED GLUCOSE; Start 03/31/17 at 21:00 Glucagon (Glucagen) 1 mg Q15M PRN IM DECREASED GLUCOSE; Start 03/31/17 at 21: 00 Glucose (Glutose) 15 gm Q15M PRN BUCCAL DECREASED GLUCOSE; Start 03/31/17 at 21:00 Diagnostic Test (Pha) (Accu-Chek) 1 ea 02 XX Last administered on 04/22/17 02 :00; Admin Dose 1 EA; Start 04/06/17 at 02:00 Ascorbic Acid (Vitamin C) 500 mg DAILY PO Last administered on 04/26/17 09:03 ; Admin Dose 500 MG; Start 04/11/17 at 09:00 Zinc Sulfate (Zinc Sulfate) 220 mg DAILY PO Last administered on 04/26/17 09: 03; Admin Dose 220 MG; Start 04/11/17 at 09:00 Fentanyl (Duragesic 25 Mcg/Hr Patch) 1 patch Q3D TRANSDERM Last administered on 04/23/17 17:50; Admin Dose 1 PATCH; Start 04/11/17 at 17:00 Loperamide HCl (Imodium Cap) 2 mg TID PO Last administered on 04/26/17 09:03 ; Admin Dose 2 MG; Start 04/15/17 at 13:00 Nystatin 1 applic 1 applic PRN TOP Last administered on 04/25/17 18:06; Admin Dose 1 APPLIC; Start 04/16/17 at 16:30 Ertapenem/Sodium Chloride (Invanz/NS) 100 ml @ 200 mls/hr Q24H IVPB Last administered on 04/25/17 13:57; Admin Dose 200 MLS/HR; Start 04/19/17 at 14: 00 Acetaminophen (Tylenol Tab) 650 mg Q6H PRN PO PAIN AND OR ELEVATED TEMP Last administered on 04/20/17 22:42; Admin Dose 650 MG; Start 04/20/17 at 22:00 Lactobacillus Acidophilus (Florajen3 Capsule) 1 each BID PO Last administered on 04/26/17 09:03; Admin Dose 1 EACH; Start 04/21/17 at 21:00 Levofloxacin (Levaquin) 500 mg Q2D@06 PO Last administered on 04/25/17 06:29 ; Admin Dose 500 MG; Start 04/25/17 at 06:00 Assessment/Plan Chief Complaint/Hosp Course SUBJECTIVE: No acute changes overnight. The patient is alert, looks comfortable, denies pain, no fevers. ANTIMICROBIALS: Levofloxacin, Invanz. MICROBIOLOGY: Repeat urine culture on 04/18/2017 grew E. coli ESBL and Stenotrophomonas maltophilia. PHYSICAL EXAMINATION: GENERAL: This is a cachectic, chronically ill-appearing, elderly, [place] man who is awake, in no distress. HEENT: Head atraumatic, normocephalic. Sclerae anicteric. Buccal mucosa dry. NECK: Supple. CHEST: Rise symmetrical. Breath sounds clear. HEART: S1, S2. ABDOMEN: Soft. Bowel tones present. ASSESSMENT: 1. Recurrent urinary tract infection. 2. History of bladder and prostate cancer, status post chemoradiation, cystoprostatectomy with urinary diversion and ileostomy conduit. 3. History of perforated viscus repair. 4. Acute renal failure. 5. Cachexia. 6. History of obstructive uropathy, status post bilateral JJ stent placement. PLAN: The patient remains stable. Continue present care, antibiotics. Follow recommendations of specialists. DW staff Problems: KING MARQUES NP Apr 26, 2017 13:41
--- NOTE | 2017-04-26 14:29 | PN ---
Date/Time of Note Date/Time of Note DATE: 04/26/17 TIME: 14:20 Assessment/Plan VTE Prophylaxis VTE Prophylaxis Intervention: SCD's Lines/Catheters IV [facility]ter Type (from [facility]): PICC Line Central line still needed: Yes Urinary Cath still in place: No Assessment/Plan Chief Complaint/Hosp Course Assessment and plan 1. Complicated urinary tract infection with polymicrobial including ESBL. Patient remains on antibiotics per ID. Cultures did show ESBL again. Follow- up with recommendations. 2. Acute non-oliguric kidney injury. Access Nurse is following. Avoid nephrotoxic medications. Patient of note does have ureteral stents in place. continue with urologist recommendations 3. Bladder cancer. Patient s/p radical cystoprostatectomy and creation of ileal conduit with colonic diversion for fistula formation. 4. s/p perforated viscus repair c CT-guided drainage of previousomplicated by intra-abdominal abscess requiring CT-guided drainage on previous admission. Surgeon is following. Follow-up with recommendations. 5. Severe protein calorie malnutrition. Remains on TPN per surgery recommendations. 6. Normocytic anemia. Monitor H&H. remains stable at present. Disposition plan: Patient on antibiotics per ID recommendations. There is a tentative plan for Dr. Rich for follow up with family regarding plan of care. Will follow up. continue supportive measures for now Discussed plan of care with Dr. Tate Problems: Exam/Review of Systems Vital Signs Vitals Vital Signs Date Time Temp Pulse Resp B/P Pulse Ox O2 Delivery O2 Flow Rate FiO2 04/26/17 02:10 98.9 70 19 90/55 94 04/25/17 21:17 Room Air Intake and Output 04/25/17 04/25/17 04/26/17 14:59 22:59 06:59 Intake Total 220 ml 1500 ml 790 ml Output Total 1950 ml Balance 220 ml -450 ml 790 ml Exam Constitutional: alert, oriented Head: normocephalic Neck: non-tender, supple Respiratory: clear to auscultation Cardiovascular: regular rate and rhythm Gastrointestinal: other (Noted with ileostomy and colostomy bag in place), soft Musculoskeletal: nl extremities to inspection Neurological: LEATHER ETCHER II-XII intact, nl mental status, nl speech Results Result Diagram: 04/26/17 0448 04/26/17 0448 Results 24 hrs Laboratory Tests Test 04/25/17 18:05 04/25/17 20:56 04/26/17 02:01 04/26/17 04:48 Bedside Glucose 114 185 113 White Blood Count 8.5 # Red Blood Count 3.07 L Hemoglobin 8.6 L Hematocrit 26.8 L Mean Corpuscular Volume 87.3 Mean Corpuscular Hemoglobin 28.0 L Mean Corpuscular Hemoglobin Concent 32.1 Red Cell Distribution Width 15.0 H Platelet Count 306 Mean Platelet Volume 9.1 Neutrophils % 69.5 Lymphocytes % 19.6 Monocytes % 7.5 Eosinophils % 1.6 Basophils % 0.2 Nucleated Red Blood Cells % 0.0 Neutrophils # 5.9 Lymphocytes # 1.7 Monocytes # 0.6 Eosinophils # 0.1 Basophils # 0.0 Nucleated Red Blood Cells # 0.0 Sodium Level 142 Potassium Level 4.2 Chloride Level 109 Carbon Dioxide Level 23 Anion Gap 14 Blood Urea Nitrogen 56 H Creatinine 1.96 H Glucose Level 120 Calcium Level 9.8 Phosphorus Level 3.3 Magnesium Level 2.0 Test 04/26/17 08:37 04/26/17 11:50 Bedside Glucose 113 119 Medications Medications Current Medications Ondansetron HCl (Zofran Inj) 4 mg Q6H PRN IV NAUSEA AND/OR VOMITING Last administered on 04/25/17 18:51; Admin Dose 4 MG; Start 03/30/17 at 03:30 Heparin Sodium (Porcine) (Heparin (5000 Units/0.5 ml)) 5,000 unit DAILY SC Last administered on 04/26/17 09:05; Admin Dose 5,000 UNIT; Start 03/30/17 at 09:00 Oxycodone/ Acetaminophen 1 tab 1 tab Q4H PRN PO PAIN Last administered on 04/26 09:03; Admin Dose 1 TAB; Start 03/30/17 at 06:00 Total Parenteral Nutrition (Tpn) 1,000 ml @ 70 mls/hr [id number] IV Last administered on 04/25/17 23:53; Admin Dose 70 MLS/HR; Start 03/31/17 at 15:00 Insulin Glargine (Lantus) 10 unit HS SC Last administered on 04/25/17 21:14; Admin Dose 10 UNIT; Start 04/01/17 at 21:00 Miscellaneous Information 1 ea NOTE XX ; Start 03/31/17 at 21:00 Glucose (Glutose) 15 gm Q15M PRN PO DECREASED GLUCOSE; Start 03/31/17 at 21:00 Glucose (Glutose) 22.5 gm Q15M PRN PO DECREASED GLUCOSE; Start 03/31/17 at 21: 00 Dextrose (D50w Syringe) 25 ml Q15M PRN IV DECREASED GLUCOSE; Start 03/31/17 at 21:00 Dextrose (D50w Syringe) 50 ml Q15M PRN IV DECREASED GLUCOSE; Start 03/31/17 at 21:00 Glucagon (Glucagen) 1 mg Q15M PRN IM DECREASED GLUCOSE; Start 03/31/17 at 21: 00 Glucose (Glutose) 15 gm Q15M PRN BUCCAL DECREASED GLUCOSE; Start 03/31/17 at 21:00 Diagnostic Test (Pha) (Accu-Chek) 1 ea 02 XX Last administered on 04/22/17 02 :00; Admin Dose 1 EA; Start 04/06/17 at 02:00 Ascorbic Acid (Vitamin C) 500 mg DAILY PO Last administered on 04/26/17 09:03 ; Admin Dose 500 MG; Start 04/11/17 at 09:00 Zinc Sulfate (Zinc Sulfate) 220 mg DAILY PO Last administered on 04/26/17 09: 03; Admin Dose 220 MG; Start 04/11/17 at 09:00 Fentanyl (Duragesic 25 Mcg/Hr Patch) 1 patch Q3D TRANSDERM Last administered on 04/23/17 17:50; Admin Dose 1 PATCH; Start 04/11/17 at 17:00 Loperamide HCl (Imodium Cap) 2 mg TID PO Last administered on 04/26/17 09:03 ; Admin Dose 2 MG; Start 04/15/17 at 13:00 Nystatin 1 applic 1 applic PRN TOP Last administered on 04/25/17 18:06; Admin Dose 1 APPLIC; Start 04/16/17 at 16:30 Ertapenem/Sodium Chloride (Invanz/NS) 100 ml @ 200 mls/hr Q24H IVPB Last administered on 04/25/17 13:57; Admin Dose 200 MLS/HR; Start 04/19/17 at 14: 00 Acetaminophen (Tylenol Tab) 650 mg Q6H PRN PO PAIN AND OR ELEVATED TEMP Last administered on 04/20/17 22:42; Admin Dose 650 MG; Start 04/20/17 at 22:00 Lactobacillus Acidophilus (Florajen3 Capsule) 1 each BID PO Last administered on 04/26/17 09:03; Admin Dose 1 EACH; Start 04/21/17 at 21:00 Levofloxacin (Levaquin) 500 mg Q2D@06 PO Last administered on 04/25/17 06:29 ; Admin Dose 500 MG; Start 04/25/17 at 06:00 ALLISON HAYWARD Apr 26, 2017 14:29
[2017-04-26] MEDS: TPN 1,000 ML IV SCH (14:50)
[2017-04-26] MEDS: ERTAPENEM SODIUM 1 GM in SOD CHLORIDE 0.9% 100 ML IVPB SCH (14:59)
[2017-04-26] MEDS: ONDANSETRON 4 MG INJ IV PRN (17:51)
[2017-04-26 19:30] VITALS: BP 99/55; RESP 20
--- NOTE | 2017-04-26 21:07 | CONS ---
Date/Time of Note Date/Time of Note DATE: 04/26/17 TIME: 21:06 Assessment/Plan Assessment/Plan Additional Assessment/Plan 1. acute kidney injury Non oliguric .2/2 ATN+ prerenal azotemia 2. H/o ESBL UTI 3.history of bladder cancer s/p TURBT, chemotherapy/radiation, urethral damage, chemo/radiation induced urinary and fecal incontinence. He underwent cystoprostatectomy with urinary diversion, ileal conduit, colonic diversion for fistula on last admission 4. Anemia of Chronic disease 5. Severe protein calorie malnutrition Plan: - IV ertapenem 1 gram IV daily -on TPN - Cr 1.96, BP stable - if cr continue to rise then we will give IVF -will continue to follow up Consultation Date/Type/Reason Admit Date/Time Mar 30, 2017 at 02:24 Initial Consult Date 03/30/17 Type of Consultation: NEPHROLOGY Referring Provider: ALLISON HAYWARD Exam/Review of Systems Vital Signs Vitals Vital Signs Date Time Temp Pulse Resp B/P Pulse Ox O2 Delivery O2 Flow Rate FiO2 04/26/17 19:30 99.5 63 20 99/55 100 04/25/17 21:17 Room Air Intake and Output 04/25/17 04/25/17 04/26/17 15:00 23:00 07:00 Intake Total 320 ml 1400 ml 790 ml Output Total 1950 ml Balance 320 ml -550 ml 790 ml Results Result Diagram: 04/26/17 0448 04/26/17 0448 Results 24 hrs Laboratory Tests Test 04/26/17 02:01 04/26/17 04:48 04/26/17 08:37 04/26/17 11:50 Bedside Glucose 113 113 119 White Blood Count 8.5 # Red Blood Count 3.07 L Hemoglobin 8.6 L Hematocrit 26.8 L Mean Corpuscular Volume 87.3 Mean Corpuscular Hemoglobin 28.0 L Mean Corpuscular Hemoglobin Concent 32.1 Red Cell Distribution Width 15.0 H Platelet Count 306 Mean Platelet Volume 9.1 Neutrophils % 69.5 Lymphocytes % 19.6 Monocytes % 7.5 Eosinophils % 1.6 Basophils % 0.2 Nucleated Red Blood Cells % 0.0 Neutrophils # 5.9 Lymphocytes # 1.7 Monocytes # 0.6 Eosinophils # 0.1 Basophils # 0.0 Nucleated Red Blood Cells # 0.0 Sodium Level 142 Potassium Level 4.2 Chloride Level 109 Carbon Dioxide Level 23 Anion Gap 14 Blood Urea Nitrogen 56 H Creatinine 1.96 H Glucose Level 120 Calcium Level 9.8 Phosphorus Level 3.3 Magnesium Level 2.0 Test 04/26/17 17:30 Bedside Glucose 158 Medications Medications Current Medications Ondansetron HCl (Zofran Inj) 4 mg Q6H PRN IV NAUSEA AND/OR VOMITING Last administered on 04/26/17 17:51; Admin Dose 4 MG; Start 03/30/17 at 03:30 Heparin Sodium (Porcine) (Heparin (5000 Units/0.5 ml)) 5,000 unit DAILY SC Last administered on 04/26/17 09:05; Admin Dose 5,000 UNIT; Start 03/30/17 at 09:00 Oxycodone/ Acetaminophen 1 tab 1 tab Q4H PRN PO PAIN Last administered on 04/26 09:03; Admin Dose 1 TAB; Start 03/30/17 at 06:00 Total Parenteral Nutrition (Tpn) 1,000 ml @ 70 mls/hr [id number] IV Last administered on 04/26/17 14:50; Admin Dose 70 MLS/HR; Start 03/31/17 at 15:00 Insulin Glargine (Lantus) 10 unit HS SC Last administered on 04/25/17 21:14; Admin Dose 10 UNIT; Start 04/01/17 at 21:00 Miscellaneous Information 1 ea NOTE XX ; Start 03/31/17 at 21:00 Glucose (Glutose) 15 gm Q15M PRN PO DECREASED GLUCOSE; Start 03/31/17 at 21:00 Glucose (Glutose) 22.5 gm Q15M PRN PO DECREASED GLUCOSE; Start 03/31/17 at 21: 00 Dextrose (D50w Syringe) 25 ml Q15M PRN IV DECREASED GLUCOSE; Start 03/31/17 at 21:00 Dextrose (D50w Syringe) 50 ml Q15M PRN IV DECREASED GLUCOSE; Start 03/31/17 at 21:00 Glucagon (Glucagen) 1 mg Q15M PRN IM DECREASED GLUCOSE; Start 03/31/17 at 21: 00 Glucose (Glutose) 15 gm Q15M PRN BUCCAL DECREASED GLUCOSE; Start 03/31/17 at 21:00 Diagnostic Test (Pha) (Accu-Chek) 1 ea 02 XX Last administered on 04/22/17 02 :00; Admin Dose 1 EA; Start 04/06/17 at 02:00 Ascorbic Acid (Vitamin C) 500 mg DAILY PO Last administered on 04/26/17 09:03 ; Admin Dose 500 MG; Start 04/11/17 at 09:00 Zinc Sulfate (Zinc Sulfate) 220 mg DAILY PO Last administered on 04/26/17 09: 03; Admin Dose 220 MG; Start 04/11/17 at 09:00 Fentanyl (Duragesic 25 Mcg/Hr Patch) 1 patch Q3D TRANSDERM Last administered on 04/26/17 18:48; Admin Dose 1 PATCH; Start 04/11/17 at 17:00 Loperamide HCl (Imodium Cap) 2 mg TID PO Last administered on 04/26/17 14:59 ; Admin Dose 2 MG; Start 04/15/17 at 13:00 Nystatin 1 applic 1 applic PRN TOP Last administered on 04/25/17 18:06; Admin Dose 1 APPLIC; Start 04/16/17 at 16:30 Ertapenem/Sodium Chloride (Invanz/NS) 100 ml @ 200 mls/hr Q24H IVPB Last administered on 04/26/17 14:59; Admin Dose 200 MLS/HR; Start 04/19/17 at 14: 00 Acetaminophen (Tylenol Tab) 650 mg Q6H PRN PO PAIN AND OR ELEVATED TEMP Last administered on 04/20/17 22:42; Admin Dose 650 MG; Start 04/20/17 at 22:00 Lactobacillus Acidophilus (Florajen3 Capsule) 1 each BID PO Last administered on 04/26/17 09:03; Admin Dose 1 EACH; Start 04/21/17 at 21:00 Levofloxacin (Levaquin) 500 mg Q2D@06 PO Last administered on 04/25/17 06:29 ; Admin Dose 500 MG; Start 04/25/17 at 06:00 MARGOT WOMACK MD Apr 26, 2017 21:07
[2017-04-26] MEDS: INSULIN GLARGINE [LANtus] 3 ML PEN SC SCH (21:08)
--- NOTE | 2017-04-26 23:28 | PN ---
Date/Time of Note Date/Time of Note DATE: 04/26/17 TIME: 23:27 Assessment/Plan Lines/Catheters IV Catheter Type (from Nrs): PICC Line Tomas in Place (from Nrs): No Assessment/Plan Chief Complaint/Hosp Course 1. Multiple ostomies and ileal conduit: all ostomies pink and moist; s/p multiple Perforated viscous w small bowel proximal looped ostomy (minimum 6 month wait prior to considering attempting abdominal re-exploration); rectal discharge; 2nd opinion surgical consult pending -continue ostomy care -continue oral feed and supplements; hopefully can wean off tpn for discharge to snf -continue local abdominal wound care-w vac -oral diet as tolerated with protein shakes and probiotics -oob/ambulate -urology input noted -TPN 2. UTI (polymicrobial, complicated)pink with mucous urine, cultures noted -abx/antimicrobials per sensitivity -frequent bladder emptying/cath care -urology 3. Malnutrition: tolerating solid diet;refusing supplements -continue tpn -vitamins, probiotics, and nutritional supplements -encourage supplements -calorie count; hopefully wean off tpn if able for dc to snf if unable to find snf that accepts tpn -started on antimotility agent and fish oil 4. MANA: worse today -judicious fluids -limit nephrotoxic meds -per renal 5. Bladder cancer: s/p chemo/radiation, s/p cystoprostatectomy with urinary diversion -per oncology/urology 6. Normocytic hypochromic anemia: no overt bleed noted -monitor -transfuse as needed -further workup per medical team 7. Pelvic pain:on fentanyl patch; still with pain; ? up titrate med -pain management 8. Min temp: cxr negative -further workup if fever spikes 9. Transaminitis -Monitor Thank you, Problems: Subjective 24 Hr Interval Summary 2nd opinion surgical consult pending. Low-grade fever. Abdominal pain. Min discharge from rectum on/off. No fevers, chills, sob, congested cough, cp, palpitations, craig, dizziness, n/v/d/dysuria. Exam/Review of Systems Vital Signs Vitals Vital Signs Date Time Temp Pulse Resp B/P Pulse Ox O2 Delivery O2 Flow Rate FiO2 04/26/17 19:30 99.5 63 20 99/55 100 04/25/17 21:17 Room Air Intake and Output 11/19/17 11/19/17 11/20/17 15:00 23:00 07:00 Intake Total 320 ml 1400 ml 790 ml Output Total 1950 ml Balance 320 ml -550 ml 790 ml Exam Free Text/Dictation Constitutional: alert, frail, oriented Psych: min anxious Head: atraumatic, normocephalic Eyes: nl lids, nl sclera ENMT: mucosa pink and moist, nl nasal mucosa & septum Neck: non-tender, supple Respiratory: normal air movement Cardiovascular: nl pulses, regular rate and rhythm Gastrointestinal: non-tender, other (ileostomy, colostomy,ileal conduit -all ostomies pink and moist), soft, wound scan drainage, no erythema Genitourinary - Male: nl penis, nl scrotum; ileal conduit with mucous/sediment output Musculoskeletal: nl extremities to inspection, nl gait and stance Extremities: normal pulses, No edema Neurological: nl mental status, nl speech Skin: nl turgor, rash or lesions; lower abdomen wound; redness/irritation around ostomies Results Result Diagram: 04/26/17 0448 04/26/17 0448 OPAL CRUZ MD Apr 26, 2017 23:28
[2017-04-27] MEDS: TPN 1,000 ML IV SCH ×3 (01:18→21:07)
[2017-04-27] MEDS: ACCUCHECK AT 2AM (Patients on SS coverage) XX SCH (02:00)
[2017-04-27 02:10] VITALS: BP 95/52; RESP 20
[2017-04-27] MEDS: LEVOFLOXACIN 500 MG TAB PO SCH (05:43)
[2017-04-27] MEDS: OXYCODONE/ACETAMINOPHEN (5/325) TAB PO PRN ×3 (06:02→23:36)
[2017-04-27] MEDS: Insulin NOVOLOG SS MODERATE Algorithm (SS with meals and bedtime) SC SCH ×4 (07:50→21:00)
[2017-04-27] MEDS: L ACIDOPHIL/B LACTIS/B LONGUM CAPSULE PO SCH ×2 (09:17→21:00)
[2017-04-27] MEDS: LOPERAMIDE 2 MG CAP PO SCH ×3 (09:17→21:08)
[2017-04-27] MEDS: ASCORBIC ACID 500 MG TAB PO SCH (09:17)
[2017-04-27] MEDS: ZINC SULFATE 220 MG CAP PO SCH (09:17)
[2017-04-27] MEDS: HEPARIN 5,000 UNIT/0.5 ML VIAL SC SCH (09:23)
--- NOTE | 2017-04-27 13:07 | PN ---
Date/Time of Note Date/Time of Note DATE: 04/27/17 TIME: 12:52 Assessment/Plan Lines/Catheters IV Catheter Type (from Nrs): PICC Line Tomas in Place (from Nrs): No Assessment/Plan Chief Complaint/Hosp Course 1. Multiple ostomies and ileal conduit: all ostomies pink and moist; s/p multiple Perforated viscous w small bowel proximal looped ostomy (minimum 6 month wait prior to considering attempting abdominal re-exploration); rectal discharge; 2nd opinion surgical consult pending -continue ostomy care -continue oral feed and supplements; hopefully can wean off tpn for discharge to snf -continue local abdominal wound care-w vac -oral diet as tolerated with protein shakes and probiotics- refusing supplements -oob/ambulate -urology input noted -TPN 2. UTI (polymicrobial, complicated)pink with mucous urine, cultures noted -abx/antimicrobials per sensitivity -frequent bladder emptying/cath care -urology 3. Malnutrition: tolerating solid diet;refusing supplements -continue tpn -vitamins, probiotics, and nutritional supplements- started nutrifiber -encourage supplements -hopefully wean off tpn if able for dc to snf if unable to find snf that accepts tpn -started on antimotility agent 4. MANA: -judicious fluids -limit nephrotoxic meds -per renal 5. Bladder cancer: s/p chemo/radiation, s/p cystoprostatectomy with urinary diversion -per oncology/urology 6. Normocytic hypochromic anemia: no overt bleed noted -monitor -transfuse as needed -further workup per medical team 7. Pelvic pain:on fentanyl patch; still with pain; ? up titrate med -pain management 8. Min temp: cxr negative -further workup if fever spikes 9. Transaminitis -Monitor Thank you. Patient seen and examined in collaboration with Dr. Bang Ross Problems: Subjective 24 Hr Interval Summary Continues to have pelvic pain. Second opinion surgeon pending. Still refusing supplements. Weight fluctuating. Min temp. No fevers, chills, sob, congested cough, cp, palpitations, craig, dizziness, n/v/d/dysuria. Ostomies draining; pink and moist. Exam/Review of Systems Vital Signs Vitals Vital Signs Date Time Temp Pulse Resp B/P Pulse Ox O2 Delivery O2 Flow Rate FiO2 04/27/17 02:10 98.1 62 20 95/52 100 04/25/17 21:17 Room Air Intake and Output 04/26/17 04/26/17 04/27/17 14:59 22:59 06:59 Intake Total 240 ml 710 ml 1270 ml Output Total 350 ml 1400 ml 1200 ml Balance -110 ml -690 ml 70 ml Exam Free Text/Dictation Constitutional: alert, frail, oriented Psych: anxious Head: atraumatic, normocephalic Eyes: nl lids, nl sclera ENMT: mucosa pink and moist, nl nasal mucosa & septum Neck: non-tender, supple Respiratory: normal air movement Cardiovascular: nl pulses, regular rate and rhythm Gastrointestinal: non-tender, other (ileostomy, colostomy,ileal conduit -all ostomies pink and moist), soft, wound scan drainage, no erythema Genitourinary - Male: nl penis, nl scrotum; ileal conduit with mucous/sediment output Musculoskeletal: nl extremities to inspection, nl gait and stance Extremities: normal pulses, No edema Neurological: nl mental status, nl speech Skin: nl turgor, rash or lesions; lower abdomen wound-healing; redness/ irritation around ostomies improved Results Result Diagram: 04/26/17 0448 04/26/17 0448 IFTIKHAR ROBERTSON NP Apr 27, 2017 13:03
--- NOTE | 2017-04-27 13:40 | CONS ---
Date/Time of Note Date/Time of Note DATE: 04/27/17 TIME: 13:39 Assessment/Plan Assessment/Plan Chief Complaint/Hosp Course SUBJECTIVE: No acute changes overnight. The patient looks comfortable, denies pain, no fevers. ANTIMICROBIALS: Levofloxacin, Invanz. MICROBIOLOGY: Repeat urine culture on 04/18/2017 grew E. coli ESBL and Stenotrophomonas maltophilia. PHYSICAL EXAMINATION: GENERAL: This is a cachectic, chronically ill-appearing, elderly, Turkish man who is awake, in no distress. HEENT: Head atraumatic, normocephalic. Sclerae anicteric. Buccal mucosa dry. NECK: Supple. CHEST: Rise symmetrical. Breath sounds clear. HEART: S1, S2. ABDOMEN: Soft. Bowel tones present. ASSESSMENT: 1. Recurrent urinary tract infection. 2. History of bladder and prostate cancer, status post chemoradiation, cystoprostatectomy with urinary diversion and ileostomy conduit. 3. History of perforated viscus repair. 4. Acute renal failure. 5. Cachexia. 6. History of obstructive uropathy, status post bilateral JJ stent placement. PLAN: The patient remains stable. Continue present care, dc antibiotics. Follow recommendations of specialists. DW staff Problems: Consultation Date/Type/Reason Admit Date/Time Mar 30, 2017 at 02:24 Initial Consult Date 04/01/17 Type of Consultation: ID Referring Provider: ALLISON HAYWARD Exam/Review of Systems Vital Signs Vitals Vital Signs Date Time Temp Pulse Resp B/P Pulse Ox O2 Delivery O2 Flow Rate FiO2 04/27/17 02:10 98.1 62 20 95/52 100 04/25/17 21:17 Room Air Intake and Output 04/26/17 04/26/17 04/27/17 15:00 23:00 07:00 Intake Total 240 ml 710 ml 1270 ml Output Total 350 ml 1400 ml 1200 ml Balance -110 ml -690 ml 70 ml Results Result Diagram: 04/26/17 0448 04/26/17 0448 Results 24 hrs Laboratory Tests Test 04/26/17 17:30 04/26/17 21:05 04/27/17 07:43 04/27/17 12:25 Bedside Glucose 158 107 126 111 Medications Medications Current Medications Ondansetron HCl (Zofran Inj) 4 mg Q6H PRN IV NAUSEA AND/OR VOMITING Last administered on 04/26/17t 17:51; Admin Dose 4 MG; Start 03/30/17 at 03:30 Heparin Sodium (Porcine) (Heparin (5000 Units/0.5 ml)) 5,000 unit DAILY SC Last administered on 04/27/17 09:23; Admin Dose 5,000 UNIT; Start 03/30/17 at 09:00 Oxycodone/ Acetaminophen 1 tab 1 tab Q4H PRN PO PAIN Last administered on 04/27 06:02; Admin Dose 1 TAB; Start 03/30/17 at 06:00 Total Parenteral Nutrition (Tpn) 1,000 ml @ 70 mls/hr [id number] IV Last administered on 04/27/17 05:43; Admin Dose 70 MLS/HR; Start 03/31/17 at 15:00 Insulin Glargine (Lantus) 10 unit HS SC Last administered on 04/26/17 21:08; Admin Dose 10 UNIT; Start 04/01/17 at 21:00 Miscellaneous Information 1 ea NOTE XX ; Start 03/31/17 at 21:00 Glucose (Glutose) 15 gm Q15M PRN PO DECREASED GLUCOSE; Start 03/31/17 at 21:00 Glucose (Glutose) 22.5 gm Q15M PRN PO DECREASED GLUCOSE; Start 03/31/17 at 21: 00 Dextrose (D50w Syringe) 25 ml Q15M PRN IV DECREASED GLUCOSE; Start 03/31/17 at 21:00 Dextrose (D50w Syringe) 50 ml Q15M PRN IV DECREASED GLUCOSE; Start 03/31/17 at 21:00 Glucagon (Glucagen) 1 mg Q15M PRN IM DECREASED GLUCOSE; Start 03/31/17 at 21: 00 Glucose (Glutose) 15 gm Q15M PRN BUCCAL DECREASED GLUCOSE; Start 03/31/17 at 21:00 Diagnostic Test (Pha) (Accu-Chek) 1 ea 02 XX Last administered on 04/22/17 02 :00; Admin Dose 1 EA; Start 04/06/17 at 02:00 Ascorbic Acid (Vitamin C) 500 mg DAILY PO Last administered on 04/27/17 09:17 ; Admin Dose 500 MG; Start 04/11/17 at 09:00 Zinc Sulfate (Zinc Sulfate) 220 mg DAILY PO Last administered on 04/27/17 09: 17; Admin Dose 220 MG; Start 04/11/17 at 09:00 Fentanyl (Duragesic 25 Mcg/Hr Patch) 1 patch Q3D TRANSDERM Last administered on 04/26/17 18:48; Admin Dose 1 PATCH; Start 04/11/17 at 17:00 Loperamide HCl (Imodium Cap) 2 mg TID PO Last administered on 04/27/17 12:52 ; Admin Dose 2 MG; Start 04/15/17 at 13:00 Nystatin 1 applic 1 applic PRN TOP Last administered on 04/25/17 18:06; Admin Dose 1 APPLIC; Start 04/16/17 at 16:30 Ertapenem/Sodium Chloride (Invanz/NS) 100 ml @ 200 mls/hr Q24H IVPB Last administered on 04/26/17 14:59; Admin Dose 200 MLS/HR; Start 04/19/17 at 14: 00 Acetaminophen (Tylenol Tab) 650 mg Q6H PRN PO PAIN AND OR ELEVATED TEMP Last administered on 04/20/17 22:42; Admin Dose 650 MG; Start 04/20/17 at 22:00 Lactobacillus Acidophilus (Florajen3 Capsule) 1 each BID PO Last administered on 04/27/17 09:17; Admin Dose 1 EACH; Start 04/21/17 at 21:00 Levofloxacin (Levaquin) 500 mg Q2D@06 PO Last administered on 04/27/17 05:43 ; Admin Dose 500 MG; Start 04/25/17 at 06:00 KING MARQUES NP Apr 27, 2017 13:40
[2017-04-27 14:49] VITALS: BP 98/53; RESP 20
--- NOTE | 2017-04-27 15:02 | PN ---
Date/Time of Note Date/Time of Note DATE: 04/27/17 TIME: 15:00 Assessment/Plan VTE Prophylaxis VTE Prophylaxis Intervention: SCD's Lines/Catheters IV C[facility]ter Type (from [facility]): PICC Line Central line still needed: Yes Urinary Cath still in place: No Assessment/Plan Chief Complaint/Hosp Course Assessment and plan 1. Complicated urinary tract infection with polymicrobial including ESBL. ABX for regimen per ID. Cultures did show ESBL again. Follow-up with recommendations. 2. Acute non-oliguric kidney injury. Client Resource Specialist is following. Avoid nephrotoxic medications. Patient of note does have ureteral stents in place. continue with urologist recommendations 3. Bladder cancer. Patient s/p radical cystoprostatectomy and creation of ileal conduit with colonic diversion for fistula formation. 4. s/p perforated viscus repair c CT-guided drainage of previousomplicated by intra-abdominal abscess requiring CT-guided drainage on previous admission. Surgeon is following. Follow-up with recommendations. 5. Severe protein calorie malnutrition. Remains on TPN per surgery recommendations. 6. Normocytic anemia. Monitor H&H. remains stable at present. Disposition plan: Discussed with Dr. Rich. No plan for surgery at this time. Continue with wound care and monitor for wound healing. Continue TPN. Will follow up with case finisher for discharge disposition. Discussed in detail with patient's daughter Discussed plan of care with Dr. Tate Problems: Subjective 24 Hr Interval Summary Free Text/Dictation no s/s of distress Exam/Review of Systems Vital Signs Vitals Vital Signs Date Time Temp Pulse Resp B/P Pulse Ox O2 Delivery O2 Flow Rate FiO2 04/27/17 14:49 98.5 62 20 98/53 99 04/25/17 21:17 Room Air Intake and Output 04/26/17 04/26/17 04/27/17 15:00 23:00 07:00 Intake Total 240 ml 710 ml 1270 ml Output Total 350 ml 1400 ml 1200 ml Balance -110 ml -690 ml 70 ml Exam Constitutional: alert, oriented Head: normocephalic Neck: non-tender, supple Respiratory: clear to auscultation Cardiovascular: regular rate and rhythm Gastrointestinal: other (Noted with ileostomy and colostomy bag in place), soft Musculoskeletal: nl extremities to inspection 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, nl mental status, nl speech Results Result Diagram: 04/26/17 0448 04/26/17 0448 Results 24 hrs Laboratory Tests Test 04/26/17 17:30 04/26/17 21:05 04/27/17 07:43 04/27/17 12:25 Bedside Glucose 158 107 126 111 Medications Medications Current Medications Ondansetron HCl (Zofran Inj) 4 mg Q6H PRN IV NAUSEA AND/OR VOMITING Last administered on 04/26/17 17:51; Admin Dose 4 MG; Start 03/30/17 at 03:30 Heparin Sodium (Porcine) (Heparin (5000 Units/0.5 ml)) 5,000 unit DAILY SC Last administered on 04/27/17 09:23; Admin Dose 5,000 UNIT; Start 03/30/17 at 09:00 Oxycodone/ Acetaminophen 1 tab 1 tab Q4H PRN PO PAIN Last administered on 04/27 06:02; Admin Dose 1 TAB; Start 03/30/17 at 06:00 Total Parenteral Nutrition (Tpn) 1,000 ml @ 70 mls/hr [id number] IV Last administered on 04/27/17 05:43; Admin Dose 70 MLS/HR; Start 03/31/17 at 15:00 Insulin Glargine (Lantus) 10 unit HS SC Last administered on 04/26/17 21:08; Admin Dose 10 UNIT; Start 04/01/17 at 21:00 Miscellaneous Information 1 ea NOTE XX ; Start 03/31/17 at 21:00 Glucose (Glutose) 15 gm Q15M PRN PO DECREASED GLUCOSE; Start 03/31/17 at 21:00 Glucose (Glutose) 22.5 gm Q15M PRN PO DECREASED GLUCOSE; Start 03/31/17 at 21: 00 Dextrose (D50w Syringe) 25 ml Q15M PRN IV DECREASED GLUCOSE; Start 03/31/17 at 21:00 Dextrose (D50w Syringe) 50 ml Q15M PRN IV DECREASED GLUCOSE; Start 03/31/17 at 21:00 Glucagon (Glucagen) 1 mg Q15M PRN IM DECREASED GLUCOSE; Start 03/31/17 at 21: 00 Glucose (Glutose) 15 gm Q15M PRN BUCCAL DECREASED GLUCOSE; Start 03/31/17 at 21:00 Diagnostic Test (Pha) (Accu-Chek) 1 ea 02 XX Last administered on 04/22/17 02 :00; Admin Dose 1 EA; Start 04/06/17 at 02:00 Ascorbic Acid (Vitamin C) 500 mg DAILY PO Last administered on 04/27/17 09:17 ; Admin Dose 500 MG; Start 04/11/17 at 09:00 Zinc Sulfate (Zinc Sulfate) 220 mg DAILY PO Last administered on 04/27/17 09: 17; Admin Dose 220 MG; Start 04/11/17 at 09:00 Fentanyl (Duragesic 25 Mcg/Hr Patch) 1 patch Q3D TRANSDERM Last administered on 04/26/17 18:48; Admin Dose 1 PATCH; Start 04/11/17 at 17:00 Loperamide HCl (Imodium Cap) 2 mg TID PO Last administered on 04/27/17 12:52 ; Admin Dose 2 MG; Start 04/15/17 at 13:00 Nystatin (Nystatin Powder) 1 applic PRN TOP Last administered on 04/25/17 18: 06; Admin Dose 1 APPLIC; Start 04/16/17 at 16:30 Acetaminophen (Tylenol Tab) 650 mg Q6H PRN PO PAIN AND OR ELEVATED TEMP Last administered on 04/20/17 22:42; Admin Dose 650 MG; Start 04/20/17 at 22:00 Lactobacillus Acidophilus (Florajen3 Capsule) 1 each BID PO Last administered on 04/27/17 09:17; Admin Dose 1 EACH; Start 04/21/17 at 21:00 ALLISON HAYWARD Apr 27, 2017 15:02
--- NOTE | 2017-04-27 16:56 | CONS ---
Date/Time of Note Date/Time of Note DATE: 04/27/17 TIME: 16:54 Assessment/Plan Assessment/Plan Additional Assessment/Plan 1. acute kidney injury Non oliguric .2/2 ATN+ prerenal azotemia 2. H/o ESBL UTI 3.history of bladder cancer s/p TURBT, chemotherapy/radiation, urethral damage, chemo/radiation induced urinary and fecal incontinence. He underwent cystoprostatectomy with urinary diversion, ileal conduit, colonic diversion for fistula on last admission 4. Anemia of Chronic disease 5. Severe protein calorie malnutrition Plan: - IV ertapenem 1 gram IV daily -on TPN - Cr 1.96 yesteday, no labs today to review yet , BP stable - if cr continue to rise then we will give IVF -will continue to follow up Consultation Date/Type/Reason Admit Date/Time Mar 30, 2017 at 02:24 Initial Consult Date 03/30/17 Type of Consultation: NEPHROLOGY Referring Provider: ALLISON HAYWARD 24 HR Interval Summary Free Text/Dictation NO labs today to review yet, last Cr 1.96 Exam/Review of Systems Vital Signs Vitals Vital Signs Date Time Temp Pulse Resp B/P Pulse Ox O2 Delivery O2 Flow Rate FiO2 04/27/17 14:49 98.5 62 20 98/53 99 04/25/17 21:17 Room Air Intake and Output 04/26/17 04/26/17 04/27/17 15:00 23:00 07:00 Intake Total 240 ml 710 ml 1270 ml Output Total 350 ml 1400 ml 1200 ml Balance -110 ml -690 ml 70 ml Exam Constitutional: weak. No acute distress. He is cachectic) Head: atraumatic, normocephalic Eyes: EOMI, PERRL Respiratory: clear to auscultation, normal air movement Cardiovascular: nl pulses, regular rate and rhythm Gastrointestinal: other (Scaphoid abdomen. Urostomy, colostomy and ileal conduit) Extremities: normal pulses + PICC line in place , on TPN Results Result Diagram: 04/26/178 04/26/178 Results 24 hrs Laboratory Tests Test 04/26/17 17:30 04/26/17 21:05 04/27/17 07:43 04/27/17 12:25 Bedside Glucose 158 107 126 111 Medications Medications Current Medications Ondansetron HCl (Zofran Inj) 4 mg Q6H PRN IV NAUSEA AND/OR VOMITING Last administered on 04/26/17 17:51; Admin Dose 4 MG; Start 03/30/17 at 03:30 Heparin Sodium (Porcine) (Heparin (5000 Units/0.5 ml)) 5,000 unit DAILY SC Last administered on 04/27/17 09:23; Admin Dose 5,000 UNIT; Start 03/30/17 at 09:00 Oxycodone/ Acetaminophen 1 tab 1 tab Q4H PRN PO PAIN Last administered on 04/27 06:02; Admin Dose 1 TAB; Start 03/30/17 at 06:00 Total Parenteral Nutrition (Tpn) 1,000 ml @ 70 mls/hr [id number] IV Last administered on 04/27/17 05:43; Admin Dose 70 MLS/HR; Start 03/31/17 at 15:00 Insulin Glargine (Lantus) 10 unit HS SC Last administered on 04/26/17 21:08; Admin Dose 10 UNIT; Start 04/01/17 at 21:00 Miscellaneous Information 1 ea NOTE XX ; Start 03/31/17 at 21:00 Glucose (Glutose) 15 gm Q15M PRN PO DECREASED GLUCOSE; Start 03/31/17 at 21:00 Glucose (Glutose) 22.5 gm Q15M PRN PO DECREASED GLUCOSE; Start 03/31/17 at 21: 00 Dextrose (D50w Syringe) 25 ml Q15M PRN IV DECREASED GLUCOSE; Start 03/31/17 at 21:00 Dextrose (D50w Syringe) 50 ml Q15M PRN IV DECREASED GLUCOSE; Start 03/31/17 at 21:00 Glucagon (Glucagen) 1 mg Q15M PRN IM DECREASED GLUCOSE; Start 03/31/17 at 21: 00 Glucose (Glutose) 15 gm Q15M PRN BUCCAL DECREASED GLUCOSE; Start 03/31/17 at 21:00 Diagnostic Test (Pha) (Accu-Chek) 1 ea 02 XX Last administered on 04/22/17 02 :00; Admin Dose 1 EA; Start 04/06/17 at 02:00 Ascorbic Acid (Vitamin C) 500 mg DAILY PO Last administered on 04/27/17 09:17 ; Admin Dose 500 MG; Start 04/11/17 at 09:00 Zinc Sulfate (Zinc Sulfate) 220 mg DAILY PO Last administered on 04/27/17 09: 17; Admin Dose 220 MG; Start 04/11/17 at 09:00 Fentanyl (Duragesic 25 Mcg/Hr Patch) 1 patch Q3D TRANSDERM Last administered on 04/26/17 18:48; Admin Dose 1 PATCH; Start 04/11/17 at 17:00 Loperamide HCl (Imodium Cap) 2 mg TID PO Last administered on 04/27/17 12:52 ; Admin Dose 2 MG; Start 04/15/17 at 13:00 Nystatin (Nystatin Powder) 1 applic PRN TOP Last administered on 04/25/17 18: 06; Admin Dose 1 APPLIC; Start 04/16/17 at 16:30 Acetaminophen (Tylenol Tab) 650 mg Q6H PRN PO PAIN AND OR ELEVATED TEMP Last administered on 04/20/17 22:42; Admin Dose 650 MG; Start 04/20/17 at 22:00 Lactobacillus Acidophilus (Florajen3 Capsule) 1 each BID PO Last administered on 04/27/17 09:17; Admin Dose 1 EACH; Start 04/21/17 at 21:00 MARGOT WOMACK MD Apr 27, 2017 16:56
[2017-04-27] MEDS: ONDANSETRON 4 MG INJ IV PRN (18:59)
[2017-04-27 20:00] VITALS: BP 83/48; RESP 19
--- NOTE | 2017-04-27 20:55 | CONS ---
DATE OF ADMISSION: 03/30/2017 DATE OF CONSULTATION: 04/27/2017 SURGICAL CONSULTATION REQUESTING PHYSICIAN: Hospitalist physician, as a second opinion in regard to patient's family's request for evaluation of the patient, suggesting if any other measure can be taken to speed up the recovery of the patient. Actually, consultation was requested from Dr. Rich, and Dr. Rich and I, together, saw the patient, evaluated and we are presenting our opinion in this regard. HISTORY OF PRESENT ILLNESS: This is actually a 66-year-old gentleman who has a very difficult and prolonged history of hospitalization. This patient first developed and was diagnosed with cancer of the bladder in [place], for which the patient received chemotherapy and radiation therapy, then a few months ago, he came to the [facility], staying with family and then was seen by urologist, Dr. Bourgeois, who has evaluated the patient and patient had actually some hematuria , so he was diagnosed with: 1. Muscle invasion cancer of the bladder. 2. Severe ureteral stricture. 3. Bladder cripple . 4. Radiation proctitis. 5. 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 Also, was found to have urinary incontinence. 6. Fecal incontinence. 7. Radiation cystitis. 8. Recurrent urinary tract infection. So the patient was admitted on 01/01/2017 and after stabilization, after a few days, he underwent procedure with: 1. Radical cystectomy and prostatectomy. 2. Bilateral pelvic lymph node dissection. 3. Creation of the ileal conduit for diversion of the urinary stream and placement of bilateral ureteral stent. 4. Creation of sigmoid end colostomy and closure of the irritated and radiated proctitis, rectum. Postop, patient was doing relatively fine and this was probably done on 2016. On 01/06/2017, the patient was diagnosed with abdominal sepsis and Dr. Ky Ross took the patient to the OR for exploratory laparotomy, peritoneal washing, drainage of the peritoneal abscess and was found that the whole peritoneal cavity and the bowel lower loops were also cemented. With a lot of difficulty, he eventually could find a loop of the small intestine, which could have a free mesentery that could reach to the level of the abdominal skin and for that matter, he decided to place a loop diverting ileostomy, so that he could bypass the assumed perforated leaking distal jejunum, distal ileal anastomosis. The patient eventually recovered from that matter as well. Patient was started on TPN because it appeared that patient had developed kind of short-bowel syndrome and later on, patient was having some fluid discharge from his rectum. This was evaluated by doing a small bowel evaluation through the ileostomy. First time it was infused through the proximal orifice of the ileostomy, it showed passing antegrade urine reaching to the stomach. 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 Also, in reviewing this investigation, it was found that the patient has bilateral lung nodules, but nobody has determined the significance of these nodules. Now, I talked with patient's daughter yesterday on the phone and I asked her what is their concern and why they are requesting second opinion, she is concerned that the patient is not eating that much and he gets dehydrated and as soon as he eats some food, very quickly the ileostomy starts functioning and it is very difficult to maintain his weight, and patient is weak and also concerned about what they have been told, that there is a fistula in the bowel, and she wanted to see if we can go ahead and close fistula as soon as possible. It should be mentioned that patient was in the hospital for almost 3 months and then he was discharged home in the care of home health and TPN, but they were not happy with home health and eventually on 03/30/2017, patient was readmitted through emergency room because of: 1. Generalized weakness. 2. Weight loss. 3. Urinary tract infection. 4. Decreased kidney function and was found to have increased bilirubin and increased creatinine. The patient was admitted, started on Invanz or ertapenem antibiotics for ESBL urinary tract infection, and continued TPN. The patient also continued on oral intake as much as possible and Imodium 2 mg p.o. b.i.d. to decrease the peristalsis of the proximal remaining small bowel as a short bowel syndrome. Meanwhile, the patient had other abnormalities of the lab which included increase AST, which the last one was a few days ago, which was 65, ALT was 160, alkaline phosphatase was 516. I am not sure what is the significance of this, however, this is elevated. The hemoglobin, the last one today, is 8.6, hematocrit is 26.8. Again, I am not sure what kind of anemia the patient has, but it is obvious that the patient has anemia. WBCs yesterday were 8500 with 69 % segmented. So the patient does not have leukocytosis and shift to the left at this time, but obviously patient has injury to the kidney and increased creatinine and BUN, which this one has to be addressed by the medical team, and we as a surgeon, we are not going to recommend anything about this at this time. Also, the anemia should be taking care of before the patient is being discharged, and also there are acute liver function abnormalities to be taken care of before the patient is being discharged. PHYSICAL EXAMINATION: I examined the patient. HEART: Regular. LUNGS: Clear. ABDOMEN: Not distended, is flat. Obviously, there are 3 ostomies, one is ileal conduit ostomy which is draining the urine, the second one is the end sigmoid colostomy which is not functioning and not draining, but the mucosa is pink and the third one is loop ileostomy diverting, which the mucosa is pink and has a bag and is draining liquid intestinal contents. So, we conveyed our conclusion and our recommendation to patient's daughter, that considering all the problems that the patient has gone through and all the problems that the patient has, the best treatment so far has been given to the patient, and unfortunately, the patient has developed complications that again have been correctly, as much as possible, taken care of and now the patient should continue to be encouraged. ASSESSMENT AND PLAN: 1. To have oral intake as much as possible. 2. Continue TPN as at home or the assisted, to be provided by the home health care. 3. The kidney function should be addressed by the public policy professor and probably patient should be more hydrated. 4. Anemia should be taken care of. 5. Abnormal liver function should be taken care by internal medicine group. 6. The fistula which has proven to be between some loops of distal small bowel and remnants of the rectal pouch cannot be addressed at this time because of the proctitis, radiation proctitis and abnormal tissue that the patient has in the pelvis and so many adhesions that the patient has, and any attempt to correct this, I am sure would cause more problem and more fistula for the patient. Therefore, I told the patient's family that if anybody wants to proceed and do any laparotomy, any surgery, at least should wait for 1 year or even more than that. Also, the short bowel syndrome phenomenon should be addressed by giving the patient Imodium 2 mg b.i.d. or t.i.d. Unfortunately, Dr. Rich' surgical group cannot offer any surgery at this time for this patient , and we agree with Dr. Ross's assessment and plan, no management. Thank you for consultation. Dictated By: MINA MENDOZA MD PS/NTS Conf#: [id number] DID#: [id number] CC: ISIDORO LÓPEZ MD; GAYLA RICH MD;*EndCC* MTDD
[2017-04-27] MEDS: INSULIN GLARGINE [LANtus] 3 ML PEN SC SCH (21:18)
[2017-04-28] VITALS: BP 82/47; RESP 19
[2017-04-28] MEDS: ACCUCHECK AT 2AM (Patients on SS coverage) XX SCH (01:49)
[2017-04-28 02:00] VITALS: BP 90/42; RESP 18
[2017-04-28] MEDS: TPN 1,000 ML IV SCH ×2 (05:54→13:05)
[2017-04-28 06:28] VITALS: BP 109/58; RESP 20
[2017-04-28 06:45] LABS: CALCIUM 9.7 mg/dl (8.4-10.2); CREATININE 1.95 mg/dl (0.61-1.24); MAGNESIUM 1.9 mg/dl (1.7-2.5); PHOSPHORUS 3.7 mg/dl (2.5-4.9)
[2017-04-28] MEDS: Insulin NOVOLOG SS MODERATE Algorithm (SS with meals and bedtime) SC SCH ×4 (07:50→21:00)
[2017-04-28] MEDS: ASCORBIC ACID 500 MG TAB PO SCH (08:30)
[2017-04-28] MEDS: ZINC SULFATE 220 MG CAP PO SCH (08:30)
[2017-04-28] MEDS: LOPERAMIDE 2 MG CAP PO SCH ×3 (08:30→20:08)
[2017-04-28] MEDS: L ACIDOPHIL/B LACTIS/B LONGUM CAPSULE PO SCH ×2 (08:34→20:15)
[2017-04-28] MEDS: HEPARIN 5,000 UNIT/0.5 ML VIAL SC SCH (08:39)
[2017-04-28 09:03] VITALS: BP 85/50; RESP 18
--- NOTE | 2017-04-28 12:31 | PN ---
Date/Time of Note Date/Time of Note DATE: 04/28/17 TIME: 12:17 Assessment/Plan VTE Prophylaxis VTE Prophylaxis Intervention: SCD's Lines/Catheters IV Catheter Type (from Nrs): PICC Line Central line still needed: Yes Urinary Cath still in place: No Assessment/Plan Chief Complaint/Hosp Course Assessment and plan 1. Complicated urinary tract infection with polymicrobial including ESBL. ABX for regimen per ID. Cultures did show ESBL again. Follow-up with recommendations. 2. Acute non-oliguric kidney injury. [facility] is following. Avoid nephrotoxic medications. Patient of note does have ureteral stents in place. continue with urologist recommendations 3. Bladder cancer. Patient s/p radical cystoprostatectomy and creation of ileal conduit with colonic diversion for fistula formation. 4. s/p perforated viscus repair c CT-guided drainage of previous complicated by intra-abdominal abscess requiring CT-guided drainage on previous admission. Surgeon is following. Follow-up with recommendations. 5. Severe protein calorie malnutrition. Remains on TPN per surgery recommendations. 6. Normocytic anemia. Monitor H&H. remains stable at present. 7. 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 on immodium Disposition plan: Discussed with Dr. Rich. No plan for surgery at this time. Continue with wound care and monitor for wound healing. Continue TPN. on immodium per surgeon. Follow up with family for d/c planning for possibly home with [facility] Discussed plan of care with Dr. Tate Problems: Subjective 24 Hr Interval Summary Free Text/Dictation no s/s of distress. resting at this time Exam/Review of Systems Vital Signs Vitals Vital Signs Date Time Temp Pulse Resp B/P Pulse Ox O2 Delivery O2 Flow Rate FiO2 04/28/17 09:03 98.9 86 18 85/50 98 04/28/17 06:28 Room Air Intake and Output 04/27/17 04/27/17 04/28/17 15:00 23:00 07:00 Intake Total 1630 ml 1030 ml Output Total 900 ml 1120 ml Balance 730 ml -90 ml Exam Constitutional: alert, oriented Head: normocephalic Neck: non-tender, supple Respiratory: clear to auscultation Cardiovascular: regular rate and rhythm Gastrointestinal: other (Noted with ileostomy and colostomy bag in place), soft Musculoskeletal: nl extremities to inspection Neurological: RECORDER HELPER SEISMOGRAPH II-XII intact, nl mental status, nl speech Results Result Diagram: 04/26/17 0448 04/28/17 0449 Results 24 hrs Laboratory Tests Test 04/27/17 12:25 04/27/17 17:54 04/27/17 21:11 04/28/17 04:49 Bedside Glucose 111 124 123 Sodium Level 141 Potassium Level 4.0 Chloride Level 106 Carbon Dioxide Level 27 Anion Gap 12 Blood Urea Nitrogen 57 H Creatinine 1.95 H Glucose Level 102 Calcium Level 9.7 Phosphorus Level 3.7 Magnesium Level 1.9 Test 04/28/17 08:32 Bedside Glucose 118 Medications Medications Current Medications Ondansetron HCl (Zofran Inj) 4 mg Q6H PRN IV NAUSEA AND/OR VOMITING Last administered on 04/27/17 18:59; Admin Dose 4 MG; Start 03/30/17 at 03:30 Heparin Sodium (Porcine) (Heparin (5000 Units/0.5 ml)) 5,000 unit DAILY SC Last administered on 04/28/17 08:39; Admin Dose 5,000 UNIT; Start 03/30/17 at 09:00 Oxycodone/ Acetaminophen 1 tab 1 tab Q4H PRN PO PAIN Last administered on 04/27 23:36; Admin Dose 1 TAB; Start 03/30/17 at 06:00 Total Parenteral Nutrition (Tpn) 1,000 ml @ 70 mls/hr [id number] IV Last administered on 04/27/17 21:07; Admin Dose 70 MLS/HR; Start 03/31/17 at 15:00 Insulin Glargine (Lantus) 10 unit HS SC Last administered on 04/27/17 21:18; Admin Dose 10 UNIT; Start 04/01/17 at 21:00 Miscellaneous Information 1 ea NOTE XX ; Start 03/31/17 at 21:00 Glucose (Glutose) 15 gm Q15M PRN PO DECREASED GLUCOSE; Start 03/31/17 at 21:00 Glucose (Glutose) 22.5 gm Q15M PRN PO DECREASED GLUCOSE; Start 03/31/17 at 21: 00 Dextrose (D50w Syringe) 25 ml Q15M PRN IV DECREASED GLUCOSE; Start 03/31/17 at 21:00 Dextrose (D50w Syringe) 50 ml Q15M PRN IV DECREASED GLUCOSE; Start 03/31/17 at 21:00 Glucagon (Glucagen) 1 mg Q15M PRN IM DECREASED GLUCOSE; Start 03/31/17 at 21: 00 Glucose (Glutose) 15 gm Q15M PRN BUCCAL DECREASED GLUCOSE; Start 03/31/17 at 21:00 Diagnostic Test (Pha) (Accu-Chek) 1 ea 02 XX Last administered on 04/22/17 02 :00; Admin Dose 1 EA; Start 04/06/17 at 02:00 Ascorbic Acid (Vitamin C) 500 mg DAILY PO Last administered on 04/28/17 08:30 ; Admin Dose 500 MG; Start 04/11/17 at 09:00 Zinc Sulfate (Zinc Sulfate) 220 mg DAILY PO Last administered on 04/28/17 08: 30; Admin Dose 220 MG; Start 04/11/17 at 09:00 Fentanyl (Duragesic 25 Mcg/Hr Patch) 1 patch Q3D TRANSDERM Last administered on 04/26/17 18:48; Admin Dose 1 PATCH; Start 04/11/17 at 17:00 Loperamide HCl (Imodium Cap) 2 mg TID PO Last administered on 04/28/17 08:30 ; Admin Dose 2 MG; Start 04/15/17 at 13:00 Nystatin (Nystatin Powder) 1 applic PRN TOP Last administered on 04/25/17 18: 06; Admin Dose 1 APPLIC; Start 04/16/17 at 16:30 Acetaminophen (Tylenol Tab) 650 mg Q6H PRN PO PAIN AND OR ELEVATED TEMP Last administered on 04/20/17 22:42; Admin Dose 650 MG; Start 04/20/17 at 22:00 Lactobacillus Acidophilus (Florajen3 Capsule) 1 each BID PO Last administered on 04/28/17 08:34; Admin Dose 1 EACH; Start 04/21/17 at 21:00 ALLISON HAYWARD Apr 28, 2017 12:27
[2017-04-28] MEDS: OXYCODONE/ACETAMINOPHEN (5/325) TAB PO PRN ×2 (13:20→20:09)
--- NOTE | 2017-04-28 13:50 | CONS ---
Date/Time of Note Date/Time of Note DATE: 04/28/17 TIME: 13:48 Assessment/Plan Assessment/Plan Chief Complaint/Hosp Course SUBJECTIVE: No acute changes overnight. Alert, feels good, looks comfortable MICROBIOLOGY: Repeat urine culture on 04/18/2017 grew E. coli ESBL and Stenotrophomonas maltophilia. PHYSICAL EXAMINATION: GENERAL: This is a cachectic, chronically ill-appearing, elderly, Pashto man who is awake, in no distress. HEENT: Head atraumatic, normocephalic. Sclerae anicteric. Buccal mucosa dry. NECK: Supple. CHEST: Rise symmetrical. Breath sounds clear. HEART: S1, S2. ABDOMEN: Soft. Bowel tones present. ASSESSMENT: 1. Recurrent urinary tract infection. 2. History of bladder and prostate cancer, status post chemoradiation, cystoprostatectomy with urinary diversion and ileostomy conduit. 3. History of perforated viscus repair. 4. Acute renal failure. 5. Cachexia. 6. History of obstructive uropathy, status post bilateral JJ stent placement. PLAN: The patient remains stable. Antibiotics were discontinued yesterday. Continue present care, follow recommendations of specialists. staff patient Problems: Consultation Date/Type/Reason Admit Date/Time Mar 30, 2017 at 02:24 Initial Consult Date 04/01/17 Type of Consultation: id Referring Provider: ALLISON HAYWARD Exam/Review of Systems Vital Signs Vitals Vital Signs Date Time Temp Pulse Resp B/P Pulse Ox O2 Delivery O2 Flow Rate FiO2 04/28/17 09:03 98.9 86 18 85/50 98 04/28/17 06:28 Room Air Intake and Output 04/27/17 04/27/17 04/28/17 15:00 23:00 07:00 Intake Total 1630 ml 1030 ml Output Total 900 ml 1120 ml Balance 730 ml -90 ml Results Result Diagram: 04/26/17 0448 04/28/17 0449 Results 24 hrs Laboratory Tests Test 04/27/17 17:54 04/27/17 21:11 04/28/17 04:49 04/28/17 08:32 Bedside Glucose 124 123 118 Sodium Level 141 Potassium Level 4.0 Chloride Level 106 Carbon Dioxide Level 27 Anion Gap 12 Blood Urea Nitrogen 57 H Creatinine 1.95 H Glucose Level 102 Calcium Level 9.7 Phosphorus Level 3.7 Magnesium Level 1.9 Test 04/28/17 12:42 Bedside Glucose 105 Medications Medications Current Medications Ondansetron HCl (Zofran Inj) 4 mg Q6H PRN IV NAUSEA AND/OR VOMITING Last administered on 04/27/17 18:59; Admin Dose 4 MG; Start 03/30/17 at 03:30 Heparin Sodium (Porcine) (Heparin (5000 Units/0.5 ml)) 5,000 unit DAILY SC Last administered on 04/28/17 08:39; Admin Dose 5,000 UNIT; Start 03/30/17 at 09:00 Oxycodone/ Acetaminophen 1 tab 1 tab Q4H PRN PO PAIN Last administered on 04/28 13:20; Admin Dose 1 TAB; Start 03/30/17 at 06:00 Total Parenteral Nutrition (Tpn) 1,000 ml @ 70 mls/hr [id number] IV Last administered on 04/28/17 13:05; Admin Dose 70 MLS/HR; Start 03/31/17 at 15:00 Insulin Glargine (Lantus) 10 unit HS SC Last administered on 04/27/17 21:18; Admin Dose 10 UNIT; Start 04/01/17 at 21:00 Miscellaneous Information 1 ea NOTE XX ; Start 03/31/17 at 21:00 Glucose (Glutose) 15 gm Q15M PRN PO DECREASED GLUCOSE; Start 03/31/17 at 21:00 Glucose (Glutose) 22.5 gm Q15M PRN PO DECREASED GLUCOSE; Start 03/31/17 at 21: 00 Dextrose (D50w Syringe) 25 ml Q15M PRN IV DECREASED GLUCOSE; Start 03/31/17 at 21:00 Dextrose (D50w Syringe) 50 ml Q15M PRN IV DECREASED GLUCOSE; Start 03/31/17 at 21:00 Glucagon (Glucagen) 1 mg Q15M PRN IM DECREASED GLUCOSE; Start 03/31/17 at 21: 00 Glucose (Glutose) 15 gm Q15M PRN BUCCAL DECREASED GLUCOSE; Start 03/31/17 at 21:00 Diagnostic Test (Pha) (Accu-Chek) 1 ea 02 XX Last administered on 04/22/17 02 :00; Admin Dose 1 EA; Start 04/06/17 at 02:00 Ascorbic Acid (Vitamin C) 500 mg DAILY PO Last administered on 04/28/17 08:30 ; Admin Dose 500 MG; Start 04/11/17 at 09:00 Zinc Sulfate (Zinc Sulfate) 220 mg DAILY PO Last administered on 04/28/17 08: 30; Admin Dose 220 MG; Start 04/11/17 at 09:00 Fentanyl (Duragesic 25 Mcg/Hr Patch) 1 patch Q3D TRANSDERM Last administered on 04/26/17 18:48; Admin Dose 1 PATCH; Start 04/11/17 at 17:00 Loperamide HCl (Imodium Cap) 2 mg TID PO Last administered on 04/28/17 13:05 ; Admin Dose 2 MG; Start 04/15/17 at 13:00 Nystatin (Nystatin Powder) 1 applic PRN TOP Last administered on 04/25/17 18: 06; Admin Dose 1 APPLIC; Start 04/16/17 at 16:30 Acetaminophen (Tylenol Tab) 650 mg Q6H PRN PO PAIN AND OR ELEVATED TEMP Last administered on 04/20/17 22:42; Admin Dose 650 MG; Start 04/20/17 at 22:00 Lactobacillus Acidophilus (Florajen3 Capsule) 1 each BID PO Last administered on 04/28/17 08:34; Admin Dose 1 EACH; Start 04/21/17 at 21:00 KING MARQUES NP Apr 28, 2017 13:50
[2017-04-28] MEDS: INSULIN GLARGINE [LANtus] 3 ML PEN SC SCH (20:15)
[2017-04-28 20:22] VITALS: BP 95/52; RESP 16
--- NOTE | 2017-04-28 21:09 | PN ---
Date/Time of Note Date/Time of Note DATE: 04/28/17 TIME: 21:09 Assessment/Plan Lines/Catheters IV Catheter Type (from Nrs): PICC Line Tomas in Place (from Nrs): No Assessment/Plan Chief Complaint/Hosp Course 1. Multiple ostomies and ileal conduit: all ostomies pink and moist; s/p multiple Perforated viscous w small bowel proximal looped ostomy (minimum 6 month wait prior to considering attempting abdominal re-exploration); rectal discharge; 2nd opinion surgical consult pending -continue ostomy care -continue oral feed and supplements; hopefully can wean off tpn for discharge to snf -continue local abdominal wound care-w vac -oral diet as tolerated with protein shakes and probiotics- refusing supplements -oob/ambulate -urology input noted -TPN 2. UTI (polymicrobial, complicated)pink with mucous urine, cultures noted -abx/antimicrobials per sensitivity -frequent bladder emptying/cath care -urology 3. Malnutrition: tolerating solid diet;refusing supplements -continue tpn -vitamins, probiotics, and nutritional supplements- started nutrifiber -encourage supplements -hopefully wean off tpn if able for dc to snf if unable to find snf that accepts tpn -started on antimotility agent 4. MANA: stable -judicious fluids -limit nephrotoxic meds -per renal 5. Bladder cancer: s/p chemo/radiation, s/p cystoprostatectomy with urinary diversion -per oncology/urology 6. Normocytic hypochromic anemia: no overt bleed noted -monitor -transfuse as needed -further workup per medical team 7. Pelvic pain:on fentanyl patch; still with pain; ? up titrate med -pain management 8. Min temp: cxr negative: off abx -further workup if fever spikes 9. Transaminitis -Monitor Thank you. Patient seen and examined in collaboration with Dr. Bang Ross Problems: Subjective 24 Hr Interval Summary Off abx. Stable creatinine. No fevers, chills, sob, congested cough, cp, palpitations, craig, dizziness, n/v/d/dysuria. Continues on tpn. Refusing some supplements Exam/Review of Systems Vital Signs Vitals Vital Signs Date Time Temp Pulse Resp B/P Pulse Ox O2 Delivery O2 Flow Rate FiO2 05/03/17 16:37 97.6 60 20 95/54 96 11/25/17 20:21 Room Air Intake and Output 05/02/17 05/02/17 05/03/17 15:00 23:00 07:00 Intake Total 200 ml 2860 ml Output Total 2000 ml 1600 ml Balance -1800 ml 1260 ml Exam Free Text/Dictation Constitutional: alert, frail, oriented Psych: min anxious Head: atraumatic, normocephalic Eyes: nl lids, nl sclera ENMT: mucosa pink and moist, nl nasal mucosa & septum Neck: non-tender, supple Respiratory: normal air movement Cardiovascular: nl pulses, regular rate and rhythm Gastrointestinal: non-tender, other (ileostomy, colostomy,ileal conduit -all ostomies pink and moist), soft, wound scant drainage, no erythema Genitourinary - Male: nl penis, nl scrotum; ileal conduit with mucous/sediment output Musculoskeletal: nl extremities to inspection, nl gait and stance Extremities: normal pulses, No edema Neurological: nl mental status, nl speech Skin: nl turgor, rash or lesions; lower abdominal wound improving Results Result Diagram: 05/03/17 0428 05/03/17 0428 IFTIKHAR ROBERTSON NP Apr 28, 2017 21:09
--- NOTE | 2017-04-28 21:27 | CONS ---
Date/Time of Note Date/Time of Note DATE: 04/28/17 TIME: 21:26 Assessment/Plan Assessment/Plan Additional Assessment/Plan 1. acute kidney injury Non oliguric .2/2 ATN+ prerenal azotemia 2. H/o ESBL UTI 3.history of bladder cancer s/p TURBT, chemotherapy/radiation, urethral damage, chemo/radiation induced urinary and fecal incontinence. He underwent cystoprostatectomy with urinary diversion, ileal conduit, colonic diversion for fistula on last admission 4. Anemia of Chronic disease 5. Severe protein calorie malnutrition Plan: - IV ertapenem 1 gram IV daily -on TPN - Cr 1.95 today, BP stable - if cr continue to rise then we will give IVF -will continue to follow up Consultation Date/Type/Reason Admit Date/Time Mar 30, 2017 at 02:24 Initial Consult Date 03/30/17 Type of Consultation: NEPHROLOGY Referring Provider: ALLISON HAYWARD 24 HR Interval Summary Free Text/Dictation Cr 1.95, BP stable, no acute events overnight Exam/Review of Systems Vital Signs Vitals Vital Signs Date Time Temp Pulse Resp B/P Pulse Ox O2 Delivery O2 Flow Rate FiO2 04/28/17 20:22 99.8 69 16 95/52 100 04/28/17 06:28 Room Air Intake and Output 04/27/17 04/27/17 04/28/17 15:00 23:00 07:00 Intake Total 1630 ml 1030 ml Output Total 900 ml 1120 ml Balance 730 ml -90 ml Exam Constitutional: weak. No acute distress. He is cachectic) Head: atraumatic, normocephalic Respiratory: clear to auscultation, normal air movement Cardiovascular: nl pulses, regular rate and rhythm Gastrointestinal: other (Scaphoid abdomen. Urostomy, colostomy and ileal conduit) Extremities: normal pulses + PICC line in place , on TPN Results Result Diagram: 04/26/17 0448 04/28/17 0449 Results 24 hrs Laboratory Tests Test 04/28/17 04:49 04/28/17 08:32 04/28/17 12:42 04/28/17 17:50 Sodium Level 141 Potassium Level 4.0 Chloride Level 106 Carbon Dioxide Level 27 Anion Gap 12 Blood Urea Nitrogen 57 H Creatinine 1.95 H Glucose Level 102 Calcium Level 9.7 Phosphorus Level 3.7 Magnesium Level 1.9 Bedside Glucose 118 105 120 Test 04/28/17 20:12 Bedside Glucose 172 Medications Medications Current Medications Ondansetron HCl (Zofran Inj) 4 mg Q6H PRN IV NAUSEA AND/OR VOMITING Last administered on 04/27/17 18:59; Admin Dose 4 MG; Start 03/30/17 at 03:30 Heparin Sodium (Porcine) (Heparin (5000 Units/0.5 ml)) 5,000 unit DAILY SC Last administered on 04/28/17 08:39; Admin Dose 5,000 UNIT; Start 03/30/17 at 09:00 Oxycodone/ Acetaminophen 1 tab 1 tab Q4H PRN PO PAIN Last administered on 04/28 20:09; Admin Dose 1 TAB; Start 03/30/17 at 06:00 Total Parenteral Nutrition (Tpn) 1,000 ml @ 70 mls/hr [id number] IV Last administered on 04/28/17 13:05; Admin Dose 70 MLS/HR; Start 03/31/17 at 15:00 Insulin Glargine (Lantus) 10 unit HS SC Last administered on 04/28/17 20:15; Admin Dose 10 UNIT; Start 04/01/17 at 21:00 Miscellaneous Information 1 ea NOTE XX ; Start 03/31/17 at 21:00 Glucose (Glutose) 15 gm Q15M PRN PO DECREASED GLUCOSE; Start 03/31/17 at 21:00 Glucose (Glutose) 22.5 gm Q15M PRN PO DECREASED GLUCOSE; Start 03/31/17 at 21: 00 Dextrose (D50w Syringe) 25 ml Q15M PRN IV DECREASED GLUCOSE; Start 03/31/17 at 21:00 Dextrose (D50w Syringe) 50 ml Q15M PRN IV DECREASED GLUCOSE; Start 03/31/17 at 21:00 Glucagon (Glucagen) 1 mg Q15M PRN IM DECREASED GLUCOSE; Start 03/31/17 at 21: 00 Glucose (Glutose) 15 gm Q15M PRN BUCCAL DECREASED GLUCOSE; Start 03/31/17 at 21:00 Diagnostic Test (Pha) (Accu-Chek) 1 ea 02 XX Last administered on 04/22/17 02 :00; Admin Dose 1 EA; Start 04/06/17 at 02:00 Ascorbic Acid (Vitamin C) 500 mg DAILY PO Last administered on 04/28/17 08:30 ; Admin Dose 500 MG; Start 04/11/17 at 09:00 Zinc Sulfate (Zinc Sulfate) 220 mg DAILY PO Last administered on 04/28/17 08: 30; Admin Dose 220 MG; Start 04/11/17 at 09:00 Fentanyl (Duragesic 25 Mcg/Hr Patch) 1 patch Q3D TRANSDERM Last administered on 04/26/17 18:48; Admin Dose 1 PATCH; Start 04/11/17 at 17:00 Loperamide HCl (Imodium Cap) 2 mg TID PO Last administered on 04/28/17 20:08 ; Admin Dose 2 MG; Start 04/15/17 at 13:00 Nystatin (Nystatin Powder) 1 applic PRN TOP Last administered on 04/25/17 18: 06; Admin Dose 1 APPLIC; Start 04/16/17 at 16:30 Acetaminophen (Tylenol Tab) 650 mg Q6H PRN PO PAIN AND OR ELEVATED TEMP Last administered on 04/20/17 22:42; Admin Dose 650 MG; Start 04/20/17 at 22:00 Lactobacillus Acidophilus (Florajen3 Capsule) 1 each BID PO Last administered on 04/28/17 20:15; Admin Dose 1 EACH; Start 04/21/17 at 21:00 MARGOT WOMCAK MD Apr 28, 2017 21:27
[2017-04-29 01:37] VITALS: BP 92/51; RESP 14
[2017-04-29] MEDS: ACCUCHECK AT 2AM (Patients on SS coverage) XX SCH (02:00)
[2017-04-29] MEDS: TPN 1,000 ML IV SCH ×2 (04:29→18:24)
[2017-04-29] MEDS: OXYCODONE/ACETAMINOPHEN (5/325) TAB PO PRN ×2 (04:37→18:40)
[2017-04-29] MEDS: ONDANSETRON 4 MG INJ IV PRN ×2 (04:37→18:39)
[2017-04-29 05:24] LABS: BASOPHILS % 0.2 % (0.0-2.0); EOSINOPHILS # 0.1 10^3/ul (0.0-0.5); EOSINOPHILS % 1.5 % (0.0-7.0); HEMATOCRIT 29.7 % (42.0-52.0); HEMOGLOBIN 9.4 g/dl (14.0-18.0); LYMPHOCYTES # 1.6 10^3/ul (0.8-2.9); LYMPHOCYTES % 17.3 % (15.0-51.0); MEAN CORPUSCULAR HEMOGLOBIN 27.6 pg (29.0-33.0); MEAN CORPUSCULAR HGB CONC 31.6 g/dl (32.0-37.0); MEAN CORPUSCULAR VOLUME 87.4 fl (82.0-101.0); MEAN PLATELET VOLUME 8.9 fl (7.4-10.4); MONOCYTE # 0.7 10^3/ul (0.3-0.9); NEUTROPHIL # 6.9 10^3/ul (1.6-7.5); NEUTROPHILS % 72.4 % (39.0-77.0); PLATELET COUNT 309 10^3/UL (140-415); RED CELL DISTRIBUTION WIDTH 14.8 % (11.5-14.5); WHITE BLOOD COUNT 9.5 10^3/ul (4.8-10.8)
[2017-04-29 05:40] LABS: CALCIUM 9.6 mg/dl (8.4-10.2); CREATININE 2.03 mg/dl (0.61-1.24); POTASSIUM 4.3 mmol/L (3.5-5.1)
[2017-04-29] MEDS: Insulin NOVOLOG SS MODERATE Algorithm (SS with meals and bedtime) SC SCH ×4 (07:50→21:00)
[2017-04-29 07:51] VITALS: BP 99/54; RESP 20
[2017-04-29] MEDS: L ACIDOPHIL/B LACTIS/B LONGUM CAPSULE PO SCH ×2 (08:53→21:25)
[2017-04-29] MEDS: ASCORBIC ACID 500 MG TAB PO SCH (08:53)
[2017-04-29] MEDS: ZINC SULFATE 220 MG CAP PO SCH (08:54)
[2017-04-29] MEDS: LOPERAMIDE 2 MG CAP PO SCH ×3 (08:54→21:25)
[2017-04-29] MEDS: HEPARIN 5,000 UNIT/0.5 ML VIAL SC SCH (08:59)
--- NOTE | 2017-04-29 11:49 | CONS ---
Date/Time of Note Date/Time of Note DATE: 04/29/17 TIME: 11:48 Assessment/Plan Assessment/Plan Chief Complaint/Hosp Course SUBJECTIVE: No acute changes overnight. Sleeping, looks comfortable MICROBIOLOGY: Repeat urine culture on 04/18/2017 grew E. coli ESBL and Stenotrophomonas maltophilia. PHYSICAL EXAMINATION: GENERAL: This is a cachectic, chronically ill-appearing, elderly, [place] man who is awake, in no distress. HEENT: Head atraumatic, normocephalic. Sclerae anicteric. Buccal mucosa dry. NECK: Supple. CHEST: Rise symmetrical. Breath sounds clear. HEART: S1, S2. ABDOMEN: Soft. Bowel tones present. ASSESSMENT: 1. Recurrent urinary tract infection. 2. History of bladder and prostate cancer, status post chemoradiation, cystoprostatectomy with urinary diversion and ileostomy conduit. 3. History of perforated viscus repair. 4. Acute renal failure. 5. Cachexia. 6. History of obstructive uropathy, status post bilateral JJ stent placement. PLAN: The patient remains stable. Off antibiotics. Continue present care, follow recommendations of specialists. staff patient Problems: Consultation Date/Type/Reason Admit Date/Time Mar 30, 2017 at 02:24 Initial Consult Date 04/01/17 Type of Consultation: ID Referring Provider: ALLISON HAYWARD Exam/Review of Systems Vital Signs Vitals Vital Signs Date Time Temp Pulse Resp B/P Pulse Ox O2 Delivery O2 Flow Rate FiO2 04/29/17 07:51 98.9 61 20 99/54 96 04/28/17 06:28 Room Air Intake and Output 04/28/17 04/28/17 04/29/17 15:00 23:00 07:00 Intake Total 490 ml 750 ml 1320 ml Output Total 2700 ml 700 ml Balance 490 ml -1950 ml 620 ml Results Result Diagram: 04/29/17 0456 04/29/17 0456 Results 24 hrs Laboratory Tests Test 04/28/17 12:42 04/28/17 17:50 04/28/17 20:12 04/29/17 04:56 Bedside Glucose 105 120 172 White Blood Count 9.5 Red Blood Count 3.40 L Hemoglobin 9.4 L Hematocrit 29.7 L Mean Corpuscular Volume 87.4 Mean Corpuscular Hemoglobin 27.6 L Mean Corpuscular Hemoglobin Concent 31.6 L Red Cell Distribution Width 14.8 H Platelet Count 309 Mean Platelet Volume 8.9 Neutrophils % 72.4 Lymphocytes % 17.3 Monocytes % 7.0 Eosinophils % 1.5 Basophils % 0.2 Nucleated Red Blood Cells % 0.0 Neutrophils # 6.9 Lymphocytes # 1.6 Monocytes # 0.7 Eosinophils # 0.1 Basophils # 0.0 Nucleated Red Blood Cells # 0.0 Sodium Level 141 Potassium Level 4.3 Chloride Level 102 Carbon Dioxide Level 29 Anion Gap 14 Blood Urea Nitrogen 60 H Creatinine 2.03 H Glucose Level 115 Calcium Level 9.6 Test 04/29/17 08:52 Bedside Glucose 120 Medications Medications Current Medications Ondansetron HCl (Zofran Inj) 4 mg Q6H PRN IV NAUSEA AND/OR VOMITING Last administered on 04/29/17 04:37; Admin Dose 4 MG; Start 03/30/17 at 03:30 Heparin Sodium (Porcine) (Heparin (5000 Units/0.5 ml)) 5,000 unit DAILY SC Last administered on 04/29/17 08:59; Admin Dose 5,000 UNIT; Start 03/30/17 at 09:00 Oxycodone/ Acetaminophen 1 tab 1 tab Q4H PRN PO PAIN Last administered on 04/29 04:37; Admin Dose 1 TAB; Start 03/30/17 at 06:00 Total Parenteral Nutrition (Tpn) 1,000 ml @ 70 mls/hr [id number] IV Last administered on 04/29/17 04:29; Admin Dose 70 MLS/HR; Start 03/31/17 at 15:00 Insulin Glargine (Lantus) 10 unit HS SC Last administered on 04/28/17 20:15; Admin Dose 10 UNIT; Start 04/01/17 at 21:00 Miscellaneous Information 1 ea NOTE XX ; Start 03/31/17 at 21:00 Glucose (Glutose) 15 gm Q15M PRN PO DECREASED GLUCOSE; Start 03/31/17 at 21:00 Glucose (Glutose) 22.5 gm Q15M PRN PO DECREASED GLUCOSE; Start 03/31/17 at 21: 00 Dextrose (D50w Syringe) 25 ml Q15M PRN IV DECREASED GLUCOSE; Start 03/31/17 at 21:00 Dextrose (D50w Syringe) 50 ml Q15M PRN IV DECREASED GLUCOSE; Start 03/31/17 at 21:00 Glucagon (Glucagen) 1 mg Q15M PRN IM DECREASED GLUCOSE; Start 03/31/17 at 21: 00 Glucose (Glutose) 15 gm Q15M PRN BUCCAL DECREASED GLUCOSE; Start 03/31/17 at 21:00 Diagnostic Test (Pha) (Accu-Chek) 1 ea 02 XX Last administered on 04/22/17 02 :00; Admin Dose 1 EA; Start 04/06/17 at 02:00 Ascorbic Acid (Vitamin C) 500 mg DAILY PO Last administered on 04/29/17 08:53 ; Admin Dose 500 MG; Start 04/11/17 at 09:00 Zinc Sulfate (Zinc Sulfate) 220 mg DAILY PO Last administered on 04/29/17 08: 54; Admin Dose 220 MG; Start 04/11/17 at 09:00 Fentanyl (Duragesic 25 Mcg/Hr Patch) 1 patch Q3D TRANSDERM Last administered on 04/26/17 18:48; Admin Dose 1 PATCH; Start 04/11/17 at 17:00 Loperamide HCl (Imodium Cap) 2 mg TID PO Last administered on 04/29/17 08:54 ; Admin Dose 2 MG; Start 04/15/17 at 13:00 Nystatin (Nystatin Powder) 1 applic PRN TOP Last administered on 04/25/17 18: 06; Admin Dose 1 APPLIC; Start 04/16/17 at 16:30 Acetaminophen (Tylenol Tab) 650 mg Q6H PRN PO PAIN AND OR ELEVATED TEMP Last administered on 04/20/17 22:42; Admin Dose 650 MG; Start 04/20/17 at 22:00 Lactobacillus Acidophilus (Florajen3 Capsule) 1 each BID PO Last administered on 04/29/17 08:53; Admin Dose 1 EACH; Start 04/21/17 at 21:00 KING MARQUES NP Apr 29, 2017 11:49
--- NOTE | 2017-04-29 12:01 | CONS ---
Date/Time of Note Date/Time of Note DATE: 04/29/17 TIME: 12:01 Assessment/Plan Assessment/Plan Additional Assessment/Plan 1. acute kidney injury Non oliguric .2/2 ATN+ prerenal azotemia 2. H/o ESBL UTI 3.history of bladder cancer s/p TURBT, chemotherapy/radiation, urethral damage, chemo/radiation induced urinary and fecal incontinence. He underwent cystoprostatectomy with urinary diversion, ileal conduit, colonic diversion for fistula on last admission 4. Anemia of Chronic disease 5. Severe protein calorie malnutrition Plan: - IV ertapenem 1 gram IV daily -on TPN - Cr 2.03 today, BP stable - will give NS at 75 cc.hr x 2 liter then stop -will continue to follow up Consultation Date/Type/Reason Admit Date/Time Mar 30, 2017 at 02:24 Initial Consult Date 03/30/17 Type of Consultation: NEPHROLOGY Referring Provider: ALLISON HAYWARD 24 HR Interval Summary Free Text/Dictation BUN/Cr 60/2.03, BP stable Exam/Review of Systems Vital Signs Vitals Vital Signs Date Time Temp Pulse Resp B/P Pulse Ox O2 Delivery O2 Flow Rate FiO2 04/29/17 07:51 98.9 61 20 99/54 96 04/28/17 06:28 Room Air Intake and Output 04/28/17 04/28/17 04/29/17 15:00 23:00 07:00 Intake Total 490 ml 750 ml 1320 ml Output Total 2700 ml 700 ml Balance 490 ml -1950 ml 620 ml Exam Constitutional: weak. No acute distress. He is cachectic) Head: atraumatic, normocephalic Respiratory: clear to auscultation, normal air movement Cardiovascular: nl pulses, regular rate and rhythm Gastrointestinal: other (Scaphoid abdomen. Urostomy, colostomy and ileal conduit) Extremities: normal pulses + PICC line in place , on TPN Results Result Diagram: 04/29/17 0456 04/29/17 0456 Results 24 hrs Laboratory Tests Test 04/28/17 12:42 04/28/17 17:50 04/28/17 20:12 04/29/17 04:56 Bedside Glucose 105 120 172 White Blood Count 9.5 Red Blood Count 3.40 L Hemoglobin 9.4 L Hematocrit 29.7 L Mean Corpuscular Volume 87.4 Mean Corpuscular Hemoglobin 27.6 L Mean Corpuscular Hemoglobin Concent 31.6 L Red Cell Distribution Width 14.8 H Platelet Count 309 Mean Platelet Volume 8.9 Neutrophils % 72.4 Lymphocytes % 17.3 Monocytes % 7.0 Eosinophils % 1.5 Basophils % 0.2 Nucleated Red Blood Cells % 0.0 Neutrophils # 6.9 Lymphocytes # 1.6 Monocytes # 0.7 Eosinophils # 0.1 Basophils # 0.0 Nucleated Red Blood Cells # 0.0 Sodium Level 141 Potassium Level 4.3 Chloride Level 102 Carbon Dioxide Level 29 Anion Gap 14 Blood Urea Nitrogen 60 H Creatinine 2.03 H Glucose Level 115 Calcium Level 9.6 Test 04/29/17 08:52 Bedside Glucose 120 Medications Medications Current Medications Ondansetron HCl (Zofran Inj) 4 mg Q6H PRN IV NAUSEA AND/OR VOMITING Last administered on 04/29/17 04:37; Admin Dose 4 MG; Start 03/30/17 at 03:30 Heparin Sodium (Porcine) (Heparin (5000 Units/0.5 ml)) 5,000 unit DAILY SC Last administered on 04/29/17 08:59; Admin Dose 5,000 UNIT; Start 03/30/17 at 09:00 Oxycodone/ Acetaminophen 1 tab 1 tab Q4H PRN PO PAIN Last administered on 04/29 04:37; Admin Dose 1 TAB; Start 03/30/17 at 06:00 Total Parenteral Nutrition (Tpn) 1,000 ml @ 70 mls/hr [id number] IV Last administered on 04/29/17 04:29; Admin Dose 70 MLS/HR; Start 03/31/17 at 15:00 Insulin Glargine (Lantus) 10 unit HS SC Last administered on 04/28/17 20:15; Admin Dose 10 UNIT; Start 04/01/17 at 21:00 Miscellaneous Information 1 ea NOTE XX ; Start 03/31/17 at 21:00 Glucose (Glutose) 15 gm Q15M PRN PO DECREASED GLUCOSE; Start 03/31/17 at 21:00 Glucose (Glutose) 22.5 gm Q15M PRN PO DECREASED GLUCOSE; Start 03/31/17 at 21: 00 Dextrose (D50w Syringe) 25 ml Q15M PRN IV DECREASED GLUCOSE; Start 03/31/17 at 21:00 Dextrose (D50w Syringe) 50 ml Q15M PRN IV DECREASED GLUCOSE; Start 03/31/17 at 21:00 Glucagon (Glucagen) 1 mg Q15M PRN IM DECREASED GLUCOSE; Start 03/31/17 at 21: 00 Glucose (Glutose) 15 gm Q15M PRN BUCCAL DECREASED GLUCOSE; Start 03/31/17 at 21:00 Diagnostic Test (Pha) (Accu-Chek) 1 ea 02 XX Last administered on 04/22/17 02 :00; Admin Dose 1 EA; Start 04/06/17 at 02:00 Ascorbic Acid (Vitamin C) 500 mg DAILY PO Last administered on 04/29/17 08:53 ; Admin Dose 500 MG; Start 04/11/17 at 09:00 Zinc Sulfate (Zinc Sulfate) 220 mg DAILY PO Last administered on 04/29/17 08: 54; Admin Dose 220 MG; Start 04/11/17 at 09:00 Fentanyl (Duragesic 25 Mcg/Hr Patch) 1 patch Q3D TRANSDERM Last administered on 04/26/17 18:48; Admin Dose 1 PATCH; Start 04/11/17 at 17:00 Loperamide HCl (Imodium Cap) 2 mg TID PO Last administered on 04/29/17 08:54 ; Admin Dose 2 MG; Start 04/15/17 at 13:00 Nystatin (Nystatin Powder) 1 applic PRN TOP Last administered on 04/25/17 18: 06; Admin Dose 1 APPLIC; Start 04/16/17 at 16:30 Acetaminophen (Tylenol Tab) 650 mg Q6H PRN PO PAIN AND OR ELEVATED TEMP Last administered on 04/20/17 22:42; Admin Dose 650 MG; Start 04/20/17 at 22:00 Lactobacillus Acidophilus (Florajen3 Capsule) 1 each BID PO Last administered on 04/29/17 08:53; Admin Dose 1 EACH; Start 04/21/17 at 21:00 MARGOT WOMACK MD Apr 29, 2017 12:01
[2017-04-29] MEDS: SOD CHLORIDE 0.9% 1,000 ML IV SCH (12:46)
--- NOTE | 2017-04-29 13:29 | PN ---
Date/Time of Note Date/Time of Note DATE: 04/29/17 TIME: 13:24 Assessment/Plan VTE Prophylaxis VTE Prophylaxis Intervention: SCD's Lines/Catheters IV [facility] Type (from [facility]): PICC Line Central line still needed: Yes Urinary Cath still in place: No Assessment/Plan Chief Complaint/Hosp Course Assessment and plan 1. Complicated urinary tract infection with polymicrobial including ESBL. stable off abx at this time 2. Acute non-oliguric kidney injury. Director Insurance is following. Avoid nephrotoxic medications. Patient of note does have ureteral stents in place. continue with urologist recommendations 3. Bladder cancer. Patient s/p radical cystoprostatectomy and creation of ileal conduit with colonic diversion for fistula formation. 4. s/p perforated viscus repair c CT-guided drainage of previous complicated by intra-abdominal abscess requiring CT-guided drainage on previous admission. Surgeon is following. Follow-up with recommendations. 5. Severe protein calorie malnutrition. Remains on TPN per surgery recommendations. 6. Normocytic anemia. Monitor H&H. remains stable at present. 7. 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 on immodium Disposition plan: Discussed with Dr. Rich. No plan for surgery at this time. Continue with wound care and monitor for wound healing. Continue TPN. on immodium per surgeon. Still awaiting placement for patient. continue supportive care Discussed plan of care with Dr. Tate Problems: Subjective 24 Hr Interval Summary Free Text/Dictation no s/s of distress. comfortable at present. RN at bedside Exam/Review of Systems Vital Signs Vitals Vital Signs Date Time Temp Pulse Resp B/P Pulse Ox O2 Delivery O2 Flow Rate FiO2 04/29/17 07:51 98.9 61 20 99/54 96 04/28/17 06:28 Room Air Intake and Output 04/28/17 04/28/17 04/29/17 15:00 23:00 07:00 Intake Total 490 ml 750 ml 1320 ml Output Total 2700 ml 700 ml Balance 490 ml -1950 ml 620 ml Exam Constitutional: alert, oriented Head: normocephalic Neck: non-tender, supple Respiratory: clear to auscultation Cardiovascular: regular rate and rhythm Gastrointestinal: other (Noted with ileostomy and colostomy bag in place), soft Musculoskeletal: nl extremities to inspection Neurological: FUNERAL DIRECTOR/EMBALMER II-XII intact, nl mental status, nl speech Results Result Diagram: 04/29/17 0456 04/29/17 0456 Results 24 hrs Laboratory Tests Test 04/28/17 17:50 04/28/17 20:12 04/29/17 04:56 04/29/17 08:52 Bedside Glucose 120 172 120 White Blood Count 9.5 Red Blood Count 3.40 L Hemoglobin 9.4 L Hematocrit 29.7 L Mean Corpuscular Volume 87.4 Mean Corpuscular Hemoglobin 27.6 L Mean Corpuscular Hemoglobin Concent 31.6 L Red Cell Distribution Width 14.8 H Platelet Count 309 Mean Platelet Volume 8.9 Neutrophils % 72.4 Lymphocytes % 17.3 Monocytes % 7.0 Eosinophils % 1.5 Basophils % 0.2 Nucleated Red Blood Cells % 0.0 Neutrophils # 6.9 Lymphocytes # 1.6 Monocytes # 0.7 Eosinophils # 0.1 Basophils # 0.0 Nucleated Red Blood Cells # 0.0 Sodium Level 141 Potassium Level 4.3 Chloride Level 102 Carbon Dioxide Level 29 Anion Gap 14 Blood Urea Nitrogen 60 H Creatinine 2.03 H Glucose Level 115 Calcium Level 9.6 Test 04/29/17 12:47 Bedside Glucose 118 Medications Medications Current Medications Ondansetron HCl (Zofran Inj) 4 mg Q6H PRN IV NAUSEA AND/OR VOMITING Last administered on 04/29/17 04:37; Admin Dose 4 MG; Start 03/30/17 at 03:30 Heparin Sodium (Porcine) (Heparin (5000 Units/0.5 ml)) 5,000 unit DAILY SC Last administered on 04/29/17 08:59; Admin Dose 5,000 UNIT; Start 03/30/17 at 09:00 Oxycodone/ Acetaminophen 1 tab 1 tab Q4H PRN PO PAIN Last administered on 04/29 04:37; Admin Dose 1 TAB; Start 03/30/17 at 06:00 Total Parenteral Nutrition (Tpn) 1,000 ml @ 70 mls/hr [id number] IV Last administered on 04/29/17 04:29; Admin Dose 70 MLS/HR; Start 03/31/17 at 15:00 Insulin Glargine (Lantus) 10 unit HS SC Last administered on 04/28/17 20:15; Admin Dose 10 UNIT; Start 04/01/17 at 21:00 Miscellaneous Information 1 ea NOTE XX ; Start 03/31/17 at 21:00 Glucose (Glutose) 15 gm Q15M PRN PO DECREASED GLUCOSE; Start 03/31/17 at 21:00 Glucose (Glutose) 22.5 gm Q15M PRN PO DECREASED GLUCOSE; Start 03/31/17 at 21: 00 Dextrose (D50w Syringe) 25 ml Q15M PRN IV DECREASED GLUCOSE; Start 03/31/17 at 21:00 Dextrose (D50w Syringe) 50 ml Q15M PRN IV DECREASED GLUCOSE; Start 03/31/17 at 21:00 Glucagon (Glucagen) 1 mg Q15M PRN IM DECREASED GLUCOSE; Start 03/31/17 at 21: 00 Glucose (Glutose) 15 gm Q15M PRN BUCCAL DECREASED GLUCOSE; Start 03/31/17 at 21:00 Diagnostic Test (Pha) (Accu-Chek) 1 ea 02 XX Last administered on 04/22/17 02 :00; Admin Dose 1 EA; Start 04/06/17 at 02:00 Ascorbic Acid (Vitamin C) 500 mg DAILY PO Last administered on 04/29/17 08:53 ; Admin Dose 500 MG; Start 04/11/17 at 09:00 Zinc Sulfate (Zinc Sulfate) 220 mg DAILY PO Last administered on 04/29/17 08: 54; Admin Dose 220 MG; Start 04/11/17 at 09:00 Fentanyl (Duragesic 25 Mcg/Hr Patch) 1 patch Q3D TRANSDERM Last administered on 04/26/17 18:48; Admin Dose 1 PATCH; Start 04/11/17 at 17:00 Loperamide HCl (Imodium Cap) 2 mg TID PO Last administered on 04/29/17 12:46 ; Admin Dose 2 MG; Start 04/15/17 at 13:00 Nystatin (Nystatin Powder) 1 applic PRN TOP Last administered on 04/25/17 18: 06; Admin Dose 1 APPLIC; Start 04/16/17 at 16:30 Acetaminophen (Tylenol Tab) 650 mg Q6H PRN PO PAIN AND OR ELEVATED TEMP Last administered on 04/20/17 22:42; Admin Dose 650 MG; Start 04/20/17 at 22:00 Lactobacillus Acidophilus 1 each 1 each BID PO Last administered on 04/29/17 08:53; Admin Dose 1 EACH; Start 04/21/17 at 21:00 Sodium Chloride (NS) 1,000 ml @ 70 mls/hr [id number] IV Last administered on t 12:46; Admin Dose 70 MLS/HR; Start 04/29/17 at 12:00; Stop 04/30/17 at 16:34 ALLISON HAYWARD Apr 29, 2017 13:29
[2017-04-29 14:49] VITALS: BP 89/54; RESP 16
[2017-04-29 19:25] VITALS: BP 86/53; RESP 16
[2017-04-29] MEDS: INSULIN GLARGINE [LANtus] 3 ML PEN SC SCH (21:28)
--- NOTE | 2017-04-29 23:47 | PN ---
Date/Time of Note Date/Time of Note DATE: 04/29/17 TIME: 23:46 Assessment/Plan Lines/Catheters IV Catheter Type (from Nrs): PICC Line Tomas in Place (from Nrs): No Assessment/Plan Chief Complaint/Hosp Course 1. Multiple ostomies and ileal conduit: all ostomies pink and moist; s/p multiple Perforated viscous w small bowel proximal looped ostomy (minimum 6 month wait prior to considering attempting abdominal re-exploration); rectal discharge; 2nd opinion surgical consult pending -continue ostomy care -continue oral feed and supplements; hopefully can wean off tpn for discharge to snf -continue local abdominal wound care-w vac -oral diet as tolerated with protein shakes and probiotics -oob/ambulate -urology input noted -TPN 2. UTI (polymicrobial, complicated)pink with mucous urine, cultures noted -abx/antimicrobials per sensitivity -frequent bladder emptying/cath care -urology 3. Malnutrition: tolerating solid diet;refusing supplements -continue tpn -vitamins, probiotics, and nutritional supplements -encourage supplements -calorie count; hopefully wean off tpn if able for dc to snf if unable to find snf that accepts tpn -started on antimotility agent and fish oil 4. MANA: worse today -judicious fluids -limit nephrotoxic meds -per renal 5. Bladder cancer: s/p chemo/radiation, s/p cystoprostatectomy with urinary diversion -per oncology/urology 6. Normocytic hypochromic anemia: no overt bleed noted -monitor -transfuse as needed -further workup per medical team 7. Pelvic pain:on fentanyl patch; still with pain; ? up titrate med -pain management 8. Min temp: cxr negative -further workup if fever spikes 9. Transaminitis -Monitor Thank you, Problems: Subjective 24 Hr Interval Summary 2nd opinion surgical consult noted. No fevers. Abdominal pain. Min discharge from rectum on/off. No fevers, chills, sob, congested cough, cp, palpitations, craig, dizziness, n/v/d/dysuria. Exam/Review of Systems Vital Signs Vitals Vital Signs Date Time Temp Pulse Resp B/P Pulse Ox O2 Delivery O2 Flow Rate FiO2 04/29/17 19:25 99.0 65 16 86/53 98 04/28/17 06:28 Room Air Intake and Output 04/28/17 04/28/17 04/29/17 15:00 23:00 07:00 Intake Total 490 ml 750 ml 1320 ml Output Total 2700 ml 700 ml Balance 490 ml -1950 ml 620 ml Exam Free Text/Dictation Constitutional: alert, frail, oriented Psych: min anxious Head: atraumatic, normocephalic Eyes: nl lids, nl sclera ENMT: mucosa pink and moist, nl nasal mucosa & septum Neck: non-tender, supple Respiratory: normal air movement Cardiovascular: nl pulses, regular rate and rhythm Gastrointestinal: non-tender, other (ileostomy, colostomy,ileal conduit -all ostomies pink and moist), soft, wound scan drainage, no erythema Genitourinary - Male: nl penis, nl scrotum; ileal conduit with mucous/sediment output Musculoskeletal: nl extremities to inspection, nl gait and stance Extremities: normal pulses, No edema Neurological: nl mental status, nl speech Skin: nl turgor, rash or lesions; lower abdomen wound; redness/irritation around ostomies Results Result Diagram: 04/29/17 0456 04/29/17 0456 OPAL CRUZ MD Apr 29, 2017 23:47
[2017-04-30] MEDS: ACCUCHECK AT 2AM (Patients on SS coverage) XX SCH (02:00)
[2017-04-30 02:10] VITALS: BP 100/51; RESP 18
[2017-04-30] MEDS: SOD CHLORIDE 0.9% 1,000 ML IV SCH (06:23)
[2017-04-30 06:35] LABS: CALCIUM 9.4 mg/dl (8.4-10.2); CREATININE 1.89 mg/dl (0.61-1.24); POTASSIUM 4.3 mmol/L (3.5-5.1)
[2017-04-30] MEDS: Insulin NOVOLOG SS MODERATE Algorithm (SS with meals and bedtime) SC SCH ×4 (07:50→20:29)
[2017-04-30 08:40] VITALS: BP 92/55; RESP 18
[2017-04-30] MEDS: LOPERAMIDE 2 MG CAP PO SCH ×3 (09:29→20:29)
[2017-04-30] MEDS: ZINC SULFATE 220 MG CAP PO SCH (09:29)
[2017-04-30] MEDS: L ACIDOPHIL/B LACTIS/B LONGUM CAPSULE PO SCH ×2 (09:29→20:22)
[2017-04-30] MEDS: ASCORBIC ACID 500 MG TAB PO SCH (09:29)
[2017-04-30] MEDS: HEPARIN 5,000 UNIT/0.5 ML VIAL SC SCH (09:34)
[2017-04-30] MEDS: TPN 1,000 ML IV SCH (10:29)
--- NOTE | 2017-04-30 11:21 | PN ---
Date/Time of Note Date/Time of Note DATE: 04/30/17 TIME: 11:20 Assessment/Plan VTE Prophylaxis VTE Prophylaxis Intervention: SCD's Lines/Catheters IV [facility] P[facility] Line Central line still needed: Yes Urinary Cath still in place: No Assessment/Plan Chief Complaint/Hosp Course Assessment and plan 1. Complicated urinary tract infection with polymicrobial including ESBL. stable off abx at this time 2. Acute non-oliguric kidney injury. Warehouse Representative is following. Avoid nephrotoxic medications. Patient of note does have ureteral stents in place. continue with urologist recommendations 3. Bladder cancer. Patient s/p radical cystoprostatectomy and creation of ileal conduit with colonic diversion for fistula formation. 4. s/p perforated viscus repair c CT-guided drainage of previous complicated by intra-abdominal abscess requiring CT-guided drainage on previous admission. Surgeon is following. Follow-up with recommendations. 5. Severe protein calorie malnutrition. Remains on TPN per surgery recommendations. 6. Normocytic anemia. Monitor H&H. remains stable at present. 7. 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 on immodium Disposition plan: No plan for surgery at this time. Still awaiting placement for patient. continue supportive care. check AM labs Discussed plan of care with Dr. Tate Problems: Subjective 24 Hr Interval Summary Free Text/Dictation no s/s of distress. unchanged Exam/Review of Systems Vital Signs Vitals Vital Signs Date Time Temp Pulse Resp B/P Pulse Ox O2 Delivery O2 Flow Rate FiO2 04/30/17 08:40 99.0 66 18 92/55 99 04/28/17 06:28 Room Air Intake and Output 04/29/17 04/29/17 04/30/17 15:00 23:00 07:00 Intake Total 1720 ml 2320 ml Output Total 2200 ml 800 ml Balance -480 ml 1520 ml Exam Constitutional: alert, oriented Head: normocephalic Neck: non-tender, supple Respiratory: clear to auscultation Cardiovascular: regular rate and rhythm Gastrointestinal: other (Noted with ileostomy and colostomy bag in place), soft Musculoskeletal: nl extremities to inspection 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, nl mental status, nl speech Results Result Diagram: 04/29/17 0456 04/30/17 0459 Results 24 hrs Laboratory Tests Test 04/29/17 12:47 04/29/17 18:12 04/29/17 21:24 04/30/17 04:59 Bedside Glucose 118 165 134 Sodium Level 140 Potassium Level 4.3 Chloride Level 102 Carbon Dioxide Level 27 Anion Gap 15 Blood Urea Nitrogen 58 H Creatinine 1.89 H Glucose Level 117 Calcium Level 9.4 Test 04/30/17 08:30 Bedside Glucose 116 Medications Medications Current Medications Ondansetron HCl (Zofran Inj) 4 mg Q6H PRN IV NAUSEA AND/OR VOMITING Last administered on 04/29/17 18:39; Admin Dose 4 MG; Start 03/30/17 at 03:30 Heparin Sodium (Porcine) (Heparin (5000 Units/0.5 ml)) 5,000 unit DAILY SC Last administered on 04/30/17 09:34; Admin Dose 5,000 UNIT; Start 03/30/17 at 09:00 Oxycodone/ Acetaminophen 1 tab 1 tab Q4H PRN PO PAIN Last administered on 04/29 18:40; Admin Dose 1 TAB; Start 03/30/17 at 06:00 Total Parenteral Nutrition (Tpn) 1,000 ml @ 70 mls/hr [id number] IV Last administered on 04/30/17 10:29; Admin Dose 70 MLS/HR; Start 03/31/17 at 15:00 Insulin Glargine (Lantus) 10 unit HS SC Last administered on 04/29/17 21:28; Admin Dose 10 UNIT; Start 04/01/17 at 21:00 Miscellaneous Information 1 ea NOTE XX ; Start 03/31/17 at 21:00 Glucose (Glutose) 15 gm Q15M PRN PO DECREASED GLUCOSE; Start 03/31/17 at 21:00 Glucose (Glutose) 22.5 gm Q15M PRN PO DECREASED GLUCOSE; Start 03/31/17 at 21: 00 Dextrose (D50w Syringe) 25 ml Q15M PRN IV DECREASED GLUCOSE; Start 03/31/17 at 21:00 Dextrose (D50w Syringe) 50 ml Q15M PRN IV DECREASED GLUCOSE; Start 03/31/17 at 21:00 Glucagon (Glucagen) 1 mg Q15M PRN IM DECREASED GLUCOSE; Start 03/31/17 at 21: 00 Glucose (Glutose) 15 gm Q15M PRN BUCCAL DECREASED GLUCOSE; Start 03/31/17 at 21:00 Diagnostic Test (Pha) (Accu-Chek) 1 ea 02 XX Last administered on 04/22/17 02 :00; Admin Dose 1 EA; Start 04/06/17 at 02:00 Ascorbic Acid (Vitamin C) 500 mg DAILY PO Last administered on 04/30/17 09:29 ; Admin Dose 500 MG; Start 04/11/17 at 09:00 Zinc Sulfate (Zinc Sulfate) 220 mg DAILY PO Last administered on 04/30/17 09: 29; Admin Dose 220 MG; Start 04/11/17 at 09:00 Fentanyl (Duragesic 25 Mcg/Hr Patch) 1 patch Q3D TRANSDERM Last administered on 04/29/17 18:16; Admin Dose 1 PATCH; Start 04/11/17 at 17:00 Loperamide HCl (Imodium Cap) 2 mg TID PO Last administered on 04/30/17 09:29 ; Admin Dose 2 MG; Start 04/15/17 at 13:00 Nystatin (Nystatin Powder) 1 applic PRN TOP Last administered on 04/25/17 18: 06; Admin Dose 1 APPLIC; Start 04/16/17 at 16:30 Acetaminophen (Tylenol Tab) 650 mg Q6H PRN PO PAIN AND OR ELEVATED TEMP Last administered on 04/20/17 22:42; Admin Dose 650 MG; Start 04/20/17 at 22:00 Lactobacillus Acidophilus 1 each 1 each BID PO Last administered on 04/30/17 09:29; Admin Dose 1 EACH; Start 04/21/17 at 21:00 Sodium Chloride (NS) 1,000 ml @ 70 mls/hr [id number] IV Last administered on 06:23; Admin Dose 70 MLS/HR; Start 04/29/17 at 12:00; Stop 04/30/17 at 21:46 ALLISON HAYWARD Apr 30, 2017 11:21
--- NOTE | 2017-04-30 11:23 | CONS ---
Date/Time of Note Date/Time of Note DATE: 04/30/17 TIME: 11:16 Assessment/Plan Assessment/Plan Chief Complaint/Hosp Course ID PROGRESS NOTE CURRENT ABX: => OFF ABX DAY #3 s/p Levaquin DC'd 04/23/s/p Ertapenem -> DC'd 04/27 S/P DAY # 11 => Zyvox + Merrem -> DC' 04/09/17 pm 24H INTERVAL SUMMARY * A/A/O -> Calm, resting comfortably in bed, no fevers, VSS, no complaints * Surgery note reviewed: Multiple ostomy sites w/healthy pink tissue; rectal discharge; 2nd opinion surgical consult pending PHYSICAL EXAMINATION: GENERAL: Frail, cachectic M, lethargic, awakens, A/A/O -> VSS, no fevers, NAD HEENT: Bilateral temporal wasting NECK: Supple, full ROM CHEST: Equal chest rise bilaterally, without dyspnea on room air CV: Radial pulse RRR ABD: Soft, colostomy, ileostomy conduit : Deferred, no FC EXT: Warm, no C/C/E, ambulatory moves all extremities SKIN: No rash, no diaphoresis ID ASSESSMENT 66 yo M w/ PMHx bladder cancer re-admitted with: 1. S/P SIRS w/ low grade temps 99.0+ range + Leukocytosis 2/2 Recurrent complicated UTI => RESOLVED * 04/18/17 URINE Cx: URINE CULTURE Final Organism 1 ESCHERICHIA COLI (ESBL) Organism 2 STENOTROPHOMONAS MALTOPHILIA * 03/30/17 BCx (-) * 03/30/17 URINE CULTURE Final * Organism 1 ESCHERICHIA COLI (ESBL) 10,000 - 20,000 CFU/ml * Organism 2 ENTEROCOCCUS SPECIES >100,000 CFU/ml 2. History of perforated viscus repair with multiple pelvic abscess drainage * s/p 01/05/18 Perforated viscous with leak s/p ex lap, extensive lysis adhesions , small bowel proximal looped ostomy 01/05/17 * Colostomy state=> Stable * Open ABD wound => local wound care treatment 3. Bladder/Prostate Cancer * s/p chemotherapy/radiation where he sustained urethral damage as well as fecal and urinary incontinence as a result of chemo/radiation treatment. * s/p cystoprostatectomy with urinary diversion prior admission * Ileostomy conduit w/pink stoma 4. Acute renal failure=> Hx of obstructive uropathy w/bilateral JJ stents prior admission * CT of the abdomen and pelvis revealed mild bilateral hydronephrosis and bilateral ureteral stents. 5. Generalized weakness w/debility + cachexia w/ hypoalbuminemia: malnutrition => appears stable * TPN dependent 6. Microcytic anemia: 2/2 chronic disease + chemo/radiation +/- post-surgical; h/h stable 7. Transaminitis 8. Osteoarthritis: DJD spine (-)MRSA Nares Screen CURRENT ABX: => OFF ABX DAY #3 s/p Levaquin DC'd 04/23/s/p Ertapenem -> DC'd 04/27 S/P DAY # 11 => Zyvox + Merrem -> DC' 04/09/17 pm ID RECOMMENDATIONS 1.Continue to monitor OFF ABX -> If he spike temp or other clinical indicators, repeat blood, urine Cx 2. Per surgery notes prior admission, the plan was to anticipate TPN 6 mos w/ Possible repeat exploration future. 3.Surgery note reviewed: Multiple ostomy sites w/healthy pink tissue; rectal discharge; 2nd opinion surgical consult pending * Continue local wound care . . Problems: Consultation Date/Type/Reason Admit Date/Time Mar 30, 2017 at 02:24 Initial Consult Date 04/01/17 Type of Consultation: ID Referring Provider: ALLISON AHYWARD Exam/Review of Systems Vital Signs Vitals Vital Signs Date Time Temp Pulse Resp B/P Pulse Ox O2 Delivery O2 Flow Rate FiO2 04/30/17 08:40 99.0 66 18 92/55 99 04/28/17 06:28 Room Air Intake and Output 04/29/17 04/29/17 04/30/17 14:59 22:59 06:59 Intake Total 1720 ml 2320 ml Output Total 2200 ml 800 ml Balance -480 ml 1520 ml Results Result Diagram: 04/29/17 0456 04/30/17 0459 Results 24 hrs Laboratory Tests Test 04/29/17 12:47 04/29/17 18:12 04/29/17 21:24 04/30/17 04:59 Bedside Glucose 118 165 134 Sodium Level 140 Potassium Level 4.3 Chloride Level 102 Carbon Dioxide Level 27 Anion Gap 15 Blood Urea Nitrogen 58 H Creatinine 1.89 H Glucose Level 117 Calcium Level 9.4 Test 04/30/17 08:30 Bedside Glucose 116 Medications Medications Current Medications Ondansetron HCl (Zofran Inj) 4 mg Q6H PRN IV NAUSEA AND/OR VOMITING Last administered on 04/29/17 18:39; Admin Dose 4 MG; Start 03/30/17 at 03:30 Heparin Sodium (Porcine) (Heparin (5000 Units/0.5 ml)) 5,000 unit DAILY SC Last administered on 04/30/17 09:34; Admin Dose 5,000 UNIT; Start 03/30/17 at 09:00 Oxycodone/ Acetaminophen 1 tab 1 tab Q4H PRN PO PAIN Last administered on 04/29 18:40; Admin Dose 1 TAB; Start 03/30/17 at 06:00 Total Parenteral Nutrition (Tpn) 1,000 ml @ 70 mls/hr [id number] IV Last administered on 04/30/17 10:29; Admin Dose 70 MLS/HR; Start 03/31/17 at 15:00 Insulin Glargine (Lantus) 10 unit HS SC Last administered on 04/29/17 21:28; Admin Dose 10 UNIT; Start 04/01/17 at 21:00 Miscellaneous Information 1 ea NOTE XX ; Start 03/31/17 at 21:00 Glucose (Glutose) 15 gm Q15M PRN PO DECREASED GLUCOSE; Start 03/31/17 at 21:00 Glucose (Glutose) 22.5 gm Q15M PRN PO DECREASED GLUCOSE; Start 03/31/17 at 21: 00 Dextrose (D50w Syringe) 25 ml Q15M PRN IV DECREASED GLUCOSE; Start 03/31/17 at 21:00 Dextrose (D50w Syringe) 50 ml Q15M PRN IV DECREASED GLUCOSE; Start 03/31/17 at 21:00 Glucagon (Glucagen) 1 mg Q15M PRN IM DECREASED GLUCOSE; Start 03/31/17 at 21: 00 Glucose (Glutose) 15 gm Q15M PRN BUCCAL DECREASED GLUCOSE; Start 03/31/17 at 21:00 Diagnostic Test (Pha) (Accu-Chek) 1 ea 02 XX Last administered on 04/22/17 02 :00; Admin Dose 1 EA; Start 04/06/17 at 02:00 Ascorbic Acid (Vitamin C) 500 mg DAILY PO Last administered on 04/30/17 09:29 ; Admin Dose 500 MG; Start 04/11/17 at 09:00 Zinc Sulfate (Zinc Sulfate) 220 mg DAILY PO Last administered on 04/30/17 09: 29; Admin Dose 220 MG; Start 04/11/17 at 09:00 Fentanyl (Duragesic 25 Mcg/Hr Patch) 1 patch Q3D TRANSDERM Last administered on 04/29/17 18:16; Admin Dose 1 PATCH; Start 04/11/17 at 17:00 Loperamide HCl (Imodium Cap) 2 mg TID PO Last administered on 04/30/17 09:29 ; Admin Dose 2 MG; Start 04/15/17 at 13:00 Nystatin (Nystatin Powder) 1 applic PRN TOP Last administered on 04/25/17 18: 06; Admin Dose 1 APPLIC; Start 04/16/17 at 16:30 Acetaminophen (Tylenol Tab) 650 mg Q6H PRN PO PAIN AND OR ELEVATED TEMP Last administered on 04/20/17 22:42; Admin Dose 650 MG; Start 04/20/17 at 22:00 Lactobacillus Acidophilus 1 each 1 each BID PO Last administered on 04/30/17 09:29; Admin Dose 1 EACH; Start 04/21/17 at 21:00 Sodium Chloride (NS) 1,000 ml @ 70 mls/hr [id number] IV Last administered on 06:23; Admin Dose 70 MLS/HR; Start 04/29/17 at 12:00; Stop 04/30/17 at 21:46 MELO KANG NP Apr 30, 2017 11:23
[2017-04-30 14:38] VITALS: BP 88/52; RESP 18
[2017-04-30 19:23] VITALS: BP 99/58; RESP 16
[2017-04-30 19:52] VITALS: BP 100/60; PULSE 68; RESP 18
[2017-04-30] MEDS: ONDANSETRON 4 MG INJ IV PRN (20:23)
[2017-04-30] MEDS: OXYCODONE/ACETAMINOPHEN (5/325) TAB PO PRN (20:23)
[2017-04-30] MEDS: INSULIN GLARGINE [LANtus] 3 ML PEN SC SCH (20:28)
--- NOTE | 2017-04-30 22:41 | CONS ---
Date/Time of Note Date/Time of Note DATE: 04/30/17 TIME: 22:39 Assessment/Plan Assessment/Plan Additional Assessment/Plan 1. acute kidney injury Non oliguric .2/2 ATN+ prerenal azotemia 2. H/o ESBL UTI 3.history of bladder cancer s/p TURBT, chemotherapy/radiation, urethral damage, chemo/radiation induced urinary and fecal incontinence. He underwent cystoprostatectomy with urinary diversion, ileal conduit, colonic diversion for fistula on last admission 4. Anemia of Chronic disease 5. Severe protein calorie malnutrition Plan: - IV ertapenem 1 gram IV daily -on TPN - getting 2 L NS, cr 1.89 today, will monitor Cr and electrolytes -will continue to follow up Consultation Date/Type/Reason Admit Date/Time Mar 30, 2017 at 02:24 Initial Consult Date 03/30/17 Type of Consultation: NEPHROLOGY Referring Provider: ALLISON HAYWARD 24 HR Interval Summary Free Text/Dictation Cr 1.89- s/p 1 liter iVF Exam/Review of Systems Vital Signs Vitals Vital Signs Date Time Temp Pulse Resp B/P Pulse Ox O2 Delivery O2 Flow Rate FiO2 04/30/17 19:52 99.2 68 18 100/60 99 Room Air Intake and Output 04/29/17 04/29/17 04/30/17 15:00 23:00 07:00 Intake Total 1720 ml 2320 ml Output Total 2200 ml 800 ml Balance -480 ml 1520 ml Exam Constitutional: weak. No acute distress. He is cachectic) Head: atraumatic, normocephalic Respiratory: clear to auscultation, normal air movement Cardiovascular: nl pulses, regular rate and rhythm Gastrointestinal: other (Scaphoid abdomen. Urostomy, colostomy and ileal conduit) Extremities: normal pulses + PICC line in place , on TPN Results Result Diagram: 04/29/17 0456 04/30/17 0459 Results 24 hrs Laboratory Tests Test 04/30/17 04:59 04/30/17 08:30 04/30/17 12:45 04/30/17 17:31 Sodium Level 140 Potassium Level 4.3 Chloride Level 102 Carbon Dioxide Level 27 Anion Gap 15 Blood Urea Nitrogen 58 H Creatinine 1.89 H Glucose Level 117 Calcium Level 9.4 Bedside Glucose 116 108 107 Test 04/30/17 20:16 Bedside Glucose 119 Medications Medications Current Medications Ondansetron HCl (Zofran Inj) 4 mg Q6H PRN IV NAUSEA AND/OR VOMITING Last administered on 04/30/17 20:23; Admin Dose 4 MG; Start 03/30/17 at 03:30 Heparin Sodium (Porcine) (Heparin (5000 Units/0.5 ml)) 5,000 unit DAILY SC Last administered on 04/30/17 09:34; Admin Dose 5,000 UNIT; Start 03/30/17 at 09:00 Oxycodone/ Acetaminophen 1 tab 1 tab Q4H PRN PO PAIN Last administered on 04/30 20:23; Admin Dose 1 TAB; Start 03/30/17 at 06:00 Total Parenteral Nutrition (Tpn) 1,000 ml @ 70 mls/hr [id number] IV Last administered on 04/30/17 10:29; Admin Dose 70 MLS/HR; Start 03/31/17 at 15:00 Insulin Glargine (Lantus) 10 unit HS SC Last administered on 04/30/17 20:28; Admin Dose 10 UNIT; Start 04/01/17 at 21:00 Miscellaneous Information 1 ea NOTE XX ; Start 03/31/17 at 21:00 Glucose (Glutose) 15 gm Q15M PRN PO DECREASED GLUCOSE; Start 03/31/17 at 21:00 Glucose (Glutose) 22.5 gm Q15M PRN PO DECREASED GLUCOSE; Start 03/31/17 at 21: 00 Dextrose (D50w Syringe) 25 ml Q15M PRN IV DECREASED GLUCOSE; Start 03/31/17 at 21:00 Dextrose (D50w Syringe) 50 ml Q15M PRN IV DECREASED GLUCOSE; Start 03/31/17 at 21:00 Glucagon (Glucagen) 1 mg Q15M PRN IM DECREASED GLUCOSE; Start 03/31/17 at 21: 00 Glucose (Glutose) 15 gm Q15M PRN BUCCAL DECREASED GLUCOSE; Start 03/31/17 at 21:00 Diagnostic Test (Pha) (Accu-Chek) 1 ea 02 XX Last administered on 04/22/17 02 :00; Admin Dose 1 EA; Start 04/06/17 at 02:00 Ascorbic Acid (Vitamin C) 500 mg DAILY PO Last administered on 04/30/17 09:29 ; Admin Dose 500 MG; Start 04/11/17 at 09:00 Zinc Sulfate (Zinc Sulfate) 220 mg DAILY PO Last administered on 04/30/17 09: 29; Admin Dose 220 MG; Start 04/11/17 at 09:00 Fentanyl (Duragesic 25 Mcg/Hr Patch) 1 patch Q3D TRANSDERM Last administered on 04/29/17 18:16; Admin Dose 1 PATCH; Start 04/11/17 at 17:00 Loperamide HCl (Imodium Cap) 2 mg TID PO Last administered on 04/30/17 20:29 ; Admin Dose 2 MG; Start 04/15/17 at 13:00 Nystatin (Nystatin Powder) 1 applic PRN TOP Last administered on 04/25/17 18: 06; Admin Dose 1 APPLIC; Start 04/16/17 at 16:30 Acetaminophen (Tylenol Tab) 650 mg Q6H PRN PO PAIN AND OR ELEVATED TEMP Last administered on 04/20/17 22:42; Admin Dose 650 MG; Start 04/20/17 at 22:00 Lactobacillus Acidophilus (Florajen3 Capsule) 1 each BID PO Last administered on 04/30/17 09:29; Admin Dose 1 EACH; Start 04/21/17 at 21:00 MARGOT WOMACK MD Apr 30, 2017 22:41
[2017-05-01 01:56] VITALS: BP 98/57; RESP 16
[2017-05-01] MEDS: ACCUCHECK AT 2AM (Patients on SS coverage) XX SCH (02:00)
[2017-05-01] MEDS: TPN 1,000 ML IV SCH ×2 (02:19→19:08)
[2017-05-01 05:14] LABS: EOSINOPHILS # 0.2 10^3/ul (0.0-0.5); EOSINOPHILS % 1.7 % (0.0-7.0); HEMATOCRIT 25.7 % (42.0-52.0); HEMOGLOBIN 8.2 g/dl (14.0-18.0); LYMPHOCYTES # 1.6 10^3/ul (0.8-2.9); LYMPHOCYTES % 18.3 % (15.0-51.0); MEAN CORPUSCULAR HEMOGLOBIN 27.9 pg (29.0-33.0); MEAN CORPUSCULAR HGB CONC 31.9 g/dl (32.0-37.0); MEAN CORPUSCULAR VOLUME 87.4 fl (82.0-101.0); MEAN PLATELET VOLUME 9.1 fl (7.4-10.4); MONOCYTE # 0.6 10^3/ul (0.3-0.9); NEUTROPHIL # 6.3 10^3/ul (1.6-7.5); NEUTROPHILS % 72.3 % (39.0-77.0); PLATELET COUNT 257 10^3/UL (140-415); RED BLOOD COUNT 2.94 10^6/ul (4.70-6.10); RED CELL DISTRIBUTION WIDTH 14.6 % (11.5-14.5); WHITE BLOOD COUNT 8.7 10^3/ul (4.8-10.8)
[2017-05-01 06:00] LABS: CREATININE 1.85 mg/dl (0.61-1.24); POTASSIUM 4.1 mmol/L (3.5-5.1)
[2017-05-01 06:27] LABS: PHOSPHORUS 3.9 mg/dl (2.5-4.9)
[2017-05-01] MEDS: Insulin NOVOLOG SS MODERATE Algorithm (SS with meals and bedtime) SC SCH ×4 (07:50→21:00)
[2017-05-01 08:18] VITALS: BP 108/57; RESP 16
[2017-05-01] MEDS: ASCORBIC ACID 500 MG TAB PO SCH (08:23)
[2017-05-01] MEDS: LOPERAMIDE 2 MG CAP PO SCH ×3 (08:23→20:46)
[2017-05-01] MEDS: ZINC SULFATE 220 MG CAP PO SCH (08:23)
[2017-05-01] MEDS: L ACIDOPHIL/B LACTIS/B LONGUM CAPSULE PO SCH ×2 (08:27→20:46)
[2017-05-01] MEDS: HEPARIN 5,000 UNIT/0.5 ML VIAL SC SCH (09:07)
[2017-05-01] MEDS: OXYCODONE/ACETAMINOPHEN (5/325) TAB PO PRN ×2 (10:21→19:07)
--- NOTE | 2017-05-01 11:13 | PN ---
Date/Time of Note Date/Time of Note DATE: 05/01/17 TIME: 11:11 Assessment/Plan VTE Prophylaxis VTE Prophylaxis Intervention: SCD's Lines/Catheters IV Catheter Type (from Nrs): PICC Line Central line still needed: Yes Urinary Cath still in place: No Assessment/Plan Chief Complaint/Hosp Course Assessment and plan 1. Complicated urinary tract infection with polymicrobial including ESBL. stable off abx at this time 2. Acute non-oliguric kidney injury. Accounts Payable Professional is following. Avoid nephrotoxic medications. Patient of note does have ureteral stents in place. continue with urologist recommendations 3. Bladder cancer. Patient s/p radical cystoprostatectomy and creation of ileal conduit with colonic diversion for fistula formation. 4. s/p perforated viscus repair c CT-guided drainage of previous complicated by intra-abdominal abscess requiring CT-guided drainage on previous admission. Surgeon is following. Follow-up with recommendations. 5. Severe protein calorie malnutrition. Remains on TPN per surgery recommendations. 6. Normocytic anemia. Monitor H&H. remains stable at present. 7. 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 on immodium Disposition plan: No plan for surgery at this time. continue with pain management. continue supportive care. follow up with case management for discharge disposition Discussed plan of care with Dr. Tate Problems: Subjective 24 Hr Interval Summary Free Text/Dictation Patient resting at this time he denies any pain at present. Comfortable. No specific complaints. Exam/Review of Systems Vital Signs Vitals Vital Signs Date Time Temp Pulse Resp B/P Pulse Ox O2 Delivery O2 Flow Rate FiO2 05/01/17 08:18 98.8 69 16 108/57 99 04/30/17 19:52 Room Air Intake and Output 04/30/17 04/30/17 05/01/17 15:00 23:00 07:00 Intake Total 200 ml 2325 ml 1585 ml Output Total 700 ml 900 ml Balance 200 ml 1625 ml 685 ml Exam Constitutional: alert, oriented Head: normocephalic Neck: non-tender, supple Respiratory: clear to auscultation Cardiovascular: regular rate and rhythm Gastrointestinal: other (Noted with ileostomy and colostomy bag in place), soft Musculoskeletal: nl extremities to inspection 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, nl mental status, nl speech Results Result Diagram: 05/01/17 0433 05/01/17432 Results 24 hrs Laboratory Tests Test 04/30/17 12:45 04/30/17 17:31 04/30/17 20:16 05/01/17 04:33 Bedside Glucose 108 107 119 White Blood Count 8.7 Red Blood Count 2.94 L Hemoglobin 8.2 L Hematocrit 25.7 L Mean Corpuscular Volume 87.4 Mean Corpuscular Hemoglobin 27.9 L Mean Corpuscular Hemoglobin Concent 31.9 L Red Cell Distribution Width 14.6 H Platelet Count 257 Mean Platelet Volume 9.1 Neutrophils % 72.3 Lymphocytes % 18.3 Monocytes % 7.0 Eosinophils % 1.7 Basophils % 0.0 Nucleated Red Blood Cells % 0.0 Neutrophils # 6.3 Lymphocytes # 1.6 Monocytes # 0.6 Eosinophils # 0.2 Basophils # 0.0 Nucleated Red Blood Cells # 0.0 Sodium Level 140 Potassium Level 4.1 Chloride Level 105 Carbon Dioxide Level 26 Anion Gap 13 Blood Urea Nitrogen 53 H Creatinine 1.85 H Glucose Level 99 Calcium Level 9.0 Phosphorus Level 3.9 Magnesium Level 2.0 Test 05/01/17 08:26 Bedside Glucose 111 Medications Medications Current Medications Ondansetron HCl (Zofran Inj) 4 mg Q6H PRN IV NAUSEA AND/OR VOMITING Last administered on 04/30/17 20:23; Admin Dose 4 MG; Start 03/30/17 at 03:30 Heparin Sodium (Porcine) (Heparin (5000 Units/0.5 ml)) 5,000 unit DAILY SC Last administered on 05/01/17 09:07; Admin Dose 5,000 UNIT; Start 03/30/17 at 09:00 Oxycodone/ Acetaminophen 1 tab 1 tab Q4H PRN PO PAIN Last administered on 05/01 10:21; Admin Dose 1 TAB; Start 03/30/17 at 06:00 Total Parenteral Nutrition (Tpn) 1,000 ml @ 70 mls/hr [id number] IV Last administered on 05/01/17 02:19; Admin Dose 70 MLS/HR; Start 03/31/17 at 15:00 Insulin Glargine (Lantus) 10 unit HS SC Last administered on 04/30/17 20:28; Admin Dose 10 UNIT; Start 04/01/17 at 21:00 Miscellaneous Information 1 ea NOTE XX ; Start 03/31/17 at 21:00 Glucose (Glutose) 15 gm Q15M PRN PO DECREASED GLUCOSE; Start 03/31/17 at 21:00 Glucose (Glutose) 22.5 gm Q15M PRN PO DECREASED GLUCOSE; Start 03/31/17 at 21: 00 Dextrose (D50w Syringe) 25 ml Q15M PRN IV DECREASED GLUCOSE; Start 03/31/17 at 21:00 Dextrose (D50w Syringe) 50 ml Q15M PRN IV DECREASED GLUCOSE; Start 03/31/17 at 21:00 Glucagon (Glucagen) 1 mg Q15M PRN IM DECREASED GLUCOSE; Start 03/31/17 at 21: 00 Glucose (Glutose) 15 gm Q15M PRN BUCCAL DECREASED GLUCOSE; Start 03/31/17 at 21:00 Diagnostic Test (Pha) (Accu-Chek) 1 ea 02 XX Last administered on 04/22/17 02 :00; Admin Dose 1 EA; Start 04/06/17 at 02:00 Ascorbic Acid (Vitamin C) 500 mg DAILY PO Last administered on 05/01/17 08:23 ; Admin Dose 500 MG; Start 04/11/17 at 09:00 Zinc Sulfate (Zinc Sulfate) 220 mg DAILY PO Last administered on 05/01/17 08: 23; Admin Dose 220 MG; Start 04/11/17 at 09:00 Fentanyl (Duragesic 25 Mcg/Hr Patch) 1 patch Q3D TRANSDERM Last administered on 04/29/17 18:16; Admin Dose 1 PATCH; Start 04/11/17 at 17:00 Loperamide HCl (Imodium Cap) 2 mg TID PO Last administered on 05/01/17 08:23 ; Admin Dose 2 MG; Start 04/15/17 at 13:00 Nystatin (Nystatin Powder) 1 applic PRN TOP Last administered on 04/25/17 18: 06; Admin Dose 1 APPLIC; Start 04/16/17 at 16:30 Acetaminophen (Tylenol Tab) 650 mg Q6H PRN PO PAIN AND OR ELEVATED TEMP Last administered on 04/20/17 22:42; Admin Dose 650 MG; Start 04/20/17 at 22:00 Lactobacillus Acidophilus (Florajen3 Capsule) 1 each BID PO Last administered on 04/30/17 09:29; Admin Dose 1 EACH; Start 04/21/17 at 21:00 REGIDOR,ALLISON May 01, 2017 11:13
--- NOTE | 2017-05-01 13:22 | CONS ---
Date/Time of Note Date/Time of Note DATE: 05/01/17 TIME: 13:09 Assessment/Plan Assessment/Plan Additional Assessment/Plan 1. acute kidney injury Non oliguric .2/2 ATN+ prerenal azotemia 2. H/o ESBL UTI 3.history of bladder cancer s/p TURBT, chemotherapy/radiation, urethral damage, chemo/radiation induced urinary and fecal incontinence. He underwent cystoprostatectomy with urinary diversion, ileal conduit, colonic diversion for fistula on last admission 4. Anemia of Chronic disease 5. Severe protein calorie malnutrition Plan: - IV ertapenem 1 gram IV daily - on TPN - getting 2 L NS, cr 1.85 today, will monitor Cr and electrolytes -will continue to follow up -Plan of care dW Dr Dion Miranda/staff Consultation Date/Type/Reason Admit Date/Time Mar 30, 2017 at 02:24 Initial Consult Date 04/01/17 Type of Consultation: NEPHROLOGY Referring Provider: ALLISON HAYWARD 24 HR Interval Summary Free Text/Dictation - c/o rt foot sole pain vane rest/ weight bearing- dw with RN- per Primary - BUN- 53/ Cr 1.85 (s/p 1 liter iVF) today - afebrile - eating home made food- tolerating well -family at bed side- all Qs answered. Constitutional: requiring IVF Detailed Summary Respiratory: no complaints Cardiovascular: no complaints Gastrointestinal: pain Genitourinary: no complaints Musculoskeletal: no complaints Skin: other Exam/Review of Systems Vital Signs Vitals Vital Signs Date Time Temp Pulse Resp B/P Pulse Ox O2 Delivery O2 Flow Rate FiO2 05/01/17 08:18 98.8 69 16 108/57 99 04/30/17 19:52 Room Air Intake and Output 04/30/17 04/30/17 05/01/17 14:59 22:59 06:59 Intake Total 200 ml 2325 ml 1585 ml Output Total 700 ml 900 ml Balance 200 ml 1625 ml 685 ml Exam Constitutional: alert, frail, oriented Psych: nl mood/affect Respiratory: clear to auscultation, normal air movement Gastrointestinal: other (colostomy intact), soft, tender Musculoskeletal: nl extremities to inspection Extremities: normal pulses Neurological: nl mental status, nl speech Results Result Diagram: 05/01/17 0433 05/01/17 0433 Results 24 hrs Laboratory Tests Test 04/30/17 17:31 04/30/17 20:16 05/01/17 04:33 05/01/17 08:26 Bedside Glucose 107 119 111 White Blood Count 8.7 Red Blood Count 2.94 L Hemoglobin 8.2 L Hematocrit 25.7 L Mean Corpuscular Volume 87.4 Mean Corpuscular Hemoglobin 27.9 L Mean Corpuscular Hemoglobin Concent 31.9 L Red Cell Distribution Width 14.6 H Platelet Count 257 Mean Platelet Volume 9.1 Neutrophils % 72.3 Lymphocytes % 18.3 Monocytes % 7.0 Eosinophils % 1.7 Basophils % 0.0 Nucleated Red Blood Cells % 0.0 Neutrophils # 6.3 Lymphocytes # 1.6 Monocytes # 0.6 Eosinophils # 0.2 Basophils # 0.0 Nucleated Red Blood Cells # 0.0 Sodium Level 140 Potassium Level 4.1 Chloride Level 105 Carbon Dioxide Level 26 Anion Gap 13 Blood Urea Nitrogen 53 H Creatinine 1.85 H Glucose Level 99 Calcium Level 9.0 Phosphorus Level 3.9 Magnesium Level 2.0 Test 05/01/17 12:26 Bedside Glucose 114 Medications Medications Current Medications Ondansetron HCl (Zofran Inj) 4 mg Q6H PRN IV NAUSEA AND/OR VOMITING Last administered on 04/30/17 20:23; Admin Dose 4 MG; Start 03/30/17 at 03:30 Heparin Sodium (Porcine) (Heparin (5000 Units/0.5 ml)) 5,000 unit DAILY SC Last administered on 05/01/17 09:07; Admin Dose 5,000 UNIT; Start 03/30/17 at 09:00 Oxycodone/ Acetaminophen 1 tab 1 tab Q4H PRN PO PAIN Last administered on 05/01 10:21; Admin Dose 1 TAB; Start 03/30/17 at 06:00 Total Parenteral Nutrition (Tpn) 1,000 ml @ 70 mls/hr [id number] IV Last administered on 05/01/17 02:19; Admin Dose 70 MLS/HR; Start 03/31/17 at 15:00 Insulin Glargine (Lantus) 10 unit HS SC Last administered on 04/30/17 20:28; Admin Dose 10 UNIT; Start 04/01/17 at 21:00 Miscellaneous Information 1 ea NOTE XX ; Start 03/31/17 at 21:00 Glucose (Glutose) 15 gm Q15M PRN PO DECREASED GLUCOSE; Start 03/31/17 at 21:00 Glucose (Glutose) 22.5 gm Q15M PRN PO DECREASED GLUCOSE; Start 03/31/17 at 21: 00 Dextrose (D50w Syringe) 25 ml Q15M PRN IV DECREASED GLUCOSE; Start 03/31/17 at 21:00 Dextrose (D50w Syringe) 50 ml Q15M PRN IV DECREASED GLUCOSE; Start 03/31/17 at 21:00 Glucagon (Glucagen) 1 mg Q15M PRN IM DECREASED GLUCOSE; Start 03/31/17 at 21: 00 Glucose (Glutose) 15 gm Q15M PRN BUCCAL DECREASED GLUCOSE; Start 03/31/17 at 21:00 Diagnostic Test (Pha) (Accu-Chek) 1 ea 02 XX Last administered on 04/22/17 02 :00; Admin Dose 1 EA; Start 04/06/17 at 02:00 Ascorbic Acid (Vitamin C) 500 mg DAILY PO Last administered on 05/01/17 08:23 ; Admin Dose 500 MG; Start 04/11/17 at 09:00 Zinc Sulfate (Zinc Sulfate) 220 mg DAILY PO Last administered on 05/01/17 08: 23; Admin Dose 220 MG; Start 04/11/17 at 09:00 Fentanyl (Duragesic 25 Mcg/Hr Patch) 1 patch Q3D TRANSDERM Last administered on 04/29/17 18:16; Admin Dose 1 PATCH; Start 04/11/17 at 17:00 Loperamide HCl (Imodium Cap) 2 mg TID PO Last administered on 05/01/17 08:23 ; Admin Dose 2 MG; Start 04/15/17 at 13:00 Nystatin (Nystatin Powder) 1 applic PRN TOP Last administered on 04/25/17 18: 06; Admin Dose 1 APPLIC; Start 04/16/17 at 16:30 Acetaminophen (Tylenol Tab) 650 mg Q6H PRN PO PAIN AND OR ELEVATED TEMP Last administered on 04/20/17 22:42; Admin Dose 650 MG; Start 04/20/17 at 22:00 Lactobacillus Acidophilus (Florajen3 Capsule) 1 each BID PO Last administered on 04/30/17 09:29; Admin Dose 1 EACH; Start 04/21/17 at 21:00 MARSHAL SLATER May 01, 2017 13:20
[2017-05-01 14:00] VITALS: BP 99/58; RESP 16
--- NOTE | 2017-05-01 16:39 | CONS ---
Date/Time of Note Date/Time of Note DATE: 05/01/17 TIME: 16:37 Assessment/Plan Assessment/Plan Chief Complaint/Hosp Course ID PROGRESS NOTE CURRENT ABX: => OFF ABX DAY #4 s/p Levaquin DC'd 04/23/s/p Ertapenem -> DC'd 04/27 S/P DAY # 11 => Zyvox + Merrem -> DC' 04/09/17 pm 24H INTERVAL SUMMARY * Clincally stable -> No c/o offered, denies f/c/n/v/d/dysuria/hematuria/SOB/CP/ ABD pain * Surgery note reviewed: Multiple ostomy sites w/healthy pink tissue; rectal discharge; 2nd opinion surgical consult pending PHYSICAL EXAMINATION: GENERAL: Frail, cachectic M, lethargic, awakens, A/A/O -> VSS, no fevers, NAD HEENT: Bilateral temporal wasting NECK: Supple, full ROM CHEST: Equal chest rise bilaterally, without dyspnea on room air CV: Radial pulse RRR ABD: Soft, colostomy, ileostomy conduit : Deferred, no FC EXT: Warm, no C/C/E, ambulatory moves all extremities SKIN: No rash, no diaphoresis ID ASSESSMENT 66 yo M w/ PMHx bladder cancer re-admitted with: 1. S/P SIRS w/ low grade temps 99.0+ range + Leukocytosis 2/2 Recurrent complicated UTI => RESOLVED * 04/18/17 URINE Cx: URINE CULTURE Final Organism 1 ESCHERICHIA COLI (ESBL) Organism 2 STENOTROPHOMONAS MALTOPHILIA * 03/30/17 BCx (-) * 03/30/17 URINE CULTURE Final * Organism 1 ESCHERICHIA COLI (ESBL) 10,000 - 20,000 CFU/ml * Organism 2 ENTEROCOCCUS SPECIES >100,000 CFU/ml 2. History of perforated viscus repair with multiple pelvic abscess drainage * s/p 01/05/18 Perforated viscous with leak s/p ex lap, extensive lysis adhesions , small bowel proximal looped ostomy 01/05/17 * Colostomy state=> Stable * Open ABD wound => local wound care treatment 3. Bladder/Prostate Cancer * s/p chemotherapy/radiation where he sustained urethral damage as well as fecal and urinary incontinence as a result of chemo/radiation treatment. * s/p cystoprostatectomy with urinary diversion prior admission * Ileostomy conduit w/pink stoma 4. Acute renal failure=> Hx of obstructive uropathy w/bilateral JJ stents prior admission * CT of the abdomen and pelvis revealed mild bilateral hydronephrosis and bilateral ureteral stents. 5. Generalized weakness w/debility + cachexia w/ hypoalbuminemia: malnutrition => appears stable * TPN dependent 6. Microcytic anemia: 2/2 chronic disease + chemo/radiation +/- post-surgical; h/h stable 7. Transaminitis 8. Osteoarthritis: DJD spine (-)MRSA Nares Screen CURRENT ABX: => OFF ABX DAY #4 s/p Levaquin DC'd 04/23/s/p Ertapenem -> DC'd 04/27 S/P DAY # 11 => Zyvox + Merrem -> DC' 04/09/17 pm ID RECOMMENDATIONS 1.Continue to monitor OFF ABX -> If he spike temp or other clinical indicators, repeat blood, urine Cx 2. Per surgery notes prior admission, the plan was to anticipate TPN 6 mos w/ Possible repeat exploration future. 3. Surgery note reviewed: Multiple ostomy sites w/healthy pink tissue; rectal discharge; 2nd opinion surgical consult pending * Continue local wound care . . Problems: Consultation Date/Type/Reason Admit Date/Time Mar 30, 2017 at 02:24 Initial Consult Date 04/01/17 Type of Consultation: ID Referring Provider: ALLISON HAYWARD Exam/Review of Systems Vital Signs Vitals Vital Signs Date Time Temp Pulse Resp B/P Pulse Ox O2 Delivery O2 Flow Rate FiO2 05/01/17 08:18 98.8 69 16 108/57 99 04/30/17 19:52 Room Air Intake and Output 04/30/17 04/30/17 05/01/17 15:00 23:00 07:00 Intake Total 200 ml 2325 ml 1585 ml Output Total 700 ml 900 ml Balance 200 ml 1625 ml 685 ml Results Result Diagram: 05/01/17 0433 05/01/17 0433 Results 24 hrs Laboratory Tests Test 04/30/17 17:31 04/30/17 20:16 05/01/17 04:33 05/01/17 08:26 Bedside Glucose 107 119 111 White Blood Count 8.7 Red Blood Count 2.94 L Hemoglobin 8.2 L Hematocrit 25.7 L Mean Corpuscular Volume 87.4 Mean Corpuscular Hemoglobin 27.9 L Mean Corpuscular Hemoglobin Concent 31.9 L Red Cell Distribution Width 14.6 H Platelet Count 257 Mean Platelet Volume 9.1 Neutrophils % 72.3 Lymphocytes % 18.3 Monocytes % 7.0 Eosinophils % 1.7 Basophils % 0.0 Nucleated Red Blood Cells % 0.0 Neutrophils # 6.3 Lymphocytes # 1.6 Monocytes # 0.6 Eosinophils # 0.2 Basophils # 0.0 Nucleated Red Blood Cells # 0.0 Sodium Level 140 Potassium Level 4.1 Chloride Level 105 Carbon Dioxide Level 26 Anion Gap 13 Blood Urea Nitrogen 53 H Creatinine 1.85 H Glucose Level 99 Calcium Level 9.0 Phosphorus Level 3.9 Magnesium Level 2.0 Test 05/01/17 12:26 Bedside Glucose 114 Medications Medications Current Medications Ondansetron HCl (Zofran Inj) 4 mg Q6H PRN IV NAUSEA AND/OR VOMITING Last administered on 04/30/17 20:23; Admin Dose 4 MG; Start 03/30/17 at 03:30 Heparin Sodium (Porcine) (Heparin (5000 Units/0.5 ml)) 5,000 unit DAILY SC Last administered on 05/01/17 09:07; Admin Dose 5,000 UNIT; Start 03/30/17 at 09:00 Oxycodone/ Acetaminophen 1 tab 1 tab Q4H PRN PO PAIN Last administered on 05/01 10:21; Admin Dose 1 TAB; Start 03/30/17 at 06:00 Total Parenteral Nutrition (Tpn) 1,000 ml @ 70 mls/hr [id number] IV Last administered on 05/01/17 02:19; Admin Dose 70 MLS/HR; Start 03/31/17 at 15:00 Insulin Glargine (Lantus) 10 unit HS SC Last administered on 04/30/17 20:28; Admin Dose 10 UNIT; Start 04/01/17 at 21:00 Miscellaneous Information 1 ea NOTE XX ; Start 03/31/17 at 21:00 Glucose (Glutose) 15 gm Q15M PRN PO DECREASED GLUCOSE; Start 03/31/17 at 21:00 Glucose (Glutose) 22.5 gm Q15M PRN PO DECREASED GLUCOSE; Start 03/31/17 at 21: 00 Dextrose (D50w Syringe) 25 ml Q15M PRN IV DECREASED GLUCOSE; Start 03/31/17 at 21:00 Dextrose (D50w Syringe) 50 ml Q15M PRN IV DECREASED GLUCOSE; Start 03/31/17 at 21:00 Glucagon (Glucagen) 1 mg Q15M PRN IM DECREASED GLUCOSE; Start 03/31/17 at 21: 00 Glucose (Glutose) 15 gm Q15M PRN BUCCAL DECREASED GLUCOSE; Start 03/31/17 at 21:00 Diagnostic Test (Pha) (Accu-Chek) 1 ea 02 XX Last administered on 04/22/17 02 :00; Admin Dose 1 EA; Start 04/06/17 at 02:00 Ascorbic Acid (Vitamin C) 500 mg DAILY PO Last administered on 05/01/17 08:23 ; Admin Dose 500 MG; Start 04/11/17 at 09:00 Zinc Sulfate (Zinc Sulfate) 220 mg DAILY PO Last administered on 05/01/17 08: 23; Admin Dose 220 MG; Start 04/11/17 at 09:00 Fentanyl (Duragesic 25 Mcg/Hr Patch) 1 patch Q3D TRANSDERM Last administered on 04/29/17 18:16; Admin Dose 1 PATCH; Start 04/11/17 at 17:00 Loperamide HCl (Imodium Cap) 2 mg TID PO Last administered on 05/01/17 14:19 ; Admin Dose 2 MG; Start 04/15/17 at 13:00 Nystatin (Nystatin Powder) 1 applic PRN TOP Last administered on 04/25/17 18: 06; Admin Dose 1 APPLIC; Start 04/16/17 at 16:30 Acetaminophen (Tylenol Tab) 650 mg Q6H PRN PO PAIN AND OR ELEVATED TEMP Last administered on 04/20/17 22:42; Admin Dose 650 MG; Start 04/20/17 at 22:00 Lactobacillus Acidophilus (Florajen3 Capsule) 1 each BID PO Last administered on 04/30/17 09:29; Admin Dose 1 EACH; Start 11/15/17 at 21:00 MELO KANG NP May 01, 2017 16:39
--- NOTE | 2017-05-01 17:59 | PN ---
Date/Time of Note Date/Time of Note DATE: 04/30/17 TIME: 17:57 Assessment/Plan Lines/Catheters IV Catheter Type (from Nrs): PICC Line Tomas in Place (from Nrs): No Assessment/Plan Chief Complaint/Hosp Course 1. Multiple ostomies and ileal conduit: all ostomies pink and moist; s/p multiple Perforated viscous w small bowel proximal looped ostomy (minimum 6 month wait prior to considering attempting abdominal re-exploration); rectal discharge; 2nd opinion surgical input noted. -continue ostomy care -continue oral feed and supplements; hopefully can wean off tpn for discharge to snf -continue local abdominal wound care-w vac -oral diet as tolerated with protein shakes and probiotics -oob/ambulate -urology input noted -TPN 2. UTI (polymicrobial, complicated)pink with mucous urine, cultures noted -abx/antimicrobials per sensitivity -frequent bladder emptying/cath care -urology 3. Malnutrition: tolerating solid diet;refusing supplements -continue tpn -vitamins, probiotics, and nutritional supplements -encourage supplements -calorie count; hopefully wean off tpn if able for dc to snf if unable to find snf that accepts tpn -started on antimotility agent and fish oil 4. MANA: worse today -judicious fluids -limit nephrotoxic meds -per renal 5. Bladder cancer: s/p chemo/radiation, s/p cystoprostatectomy with urinary diversion -per oncology/urology 6. Normocytic hypochromic anemia: no overt bleed noted -monitor -transfuse as needed -further workup per medical team 7. Pelvic pain:on fentanyl patch; still with pain; ? up titrate med -pain management 8. Min temp: cxr negative -further workup if fever spikes 9. Transaminitis -Monitor Thank you, Late entry 04/30 Problems: Subjective 24 Hr Interval Summary No fevers. Abdominal pain. Min discharge from rectum on/off. No fevers, chills , sob, congested cough, cp, palpitations, craig, dizziness, n/v/d/dysuria. Exam/Review of Systems Vital Signs Vitals Vital Signs Date Time Temp Pulse Resp B/P Pulse Ox O2 Delivery O2 Flow Rate FiO2 05/01/17 14:00 98.7 57 16 99/58 100 04/30/17 19:52 Room Air Intake and Output 04/30/17 04/30/17 05/01/17 15:00 23:00 07:00 Intake Total 200 ml 2325 ml 1585 ml Output Total 700 ml 900 ml Balance 200 ml 1625 ml 685 ml Exam Free Text/Dictation Constitutional: alert, frail, oriented Psych: min anxious Head: atraumatic, normocephalic Eyes: nl lids, nl sclera ENMT: mucosa pink and moist, nl nasal mucosa & septum Neck: non-tender, supple Respiratory: normal air movement Cardiovascular: nl pulses, regular rate and rhythm Gastrointestinal: non-tender, other (ileostomy, colostomy,ileal conduit -all ostomies pink and moist), soft, wound scan drainage, no erythema Genitourinary - Male: nl penis, nl scrotum; ileal conduit with mucous/sediment output Musculoskeletal: nl extremities to inspection, nl gait and stance Extremities: normal pulses, No edema Neurological: nl mental status, nl speech Skin: nl turgor, rash or lesions; lower abdomen wound; redness/irritation around ostomies Results Result Diagram: 05/01/17 0433 05/01/17 0433 OPAL CRUZ MD May 01, 2017 17:59
[2017-05-01 20:21] VITALS: BP 100/55; PULSE 72; RESP 18
[2017-05-01] MEDS: INSULIN GLARGINE [LANtus] 3 ML PEN SC SCH (21:02)
[2017-05-02] MEDS: ACCUCHECK AT 2AM (Patients on SS coverage) XX SCH (01:09)
[2017-05-02 06:33] LABS: CALCIUM 9.3 mg/dl (8.4-10.2); CREATININE 2.01 mg/dl (0.61-1.24); POTASSIUM 4.1 mmol/L (3.5-5.1)
[2017-05-02 07:15] VITALS: BP 101/58; RESP 18
[2017-05-02] MEDS: Insulin NOVOLOG SS MODERATE Algorithm (SS with meals and bedtime) SC SCH ×4 (07:50→20:54)
[2017-05-02] MEDS: LOPERAMIDE 2 MG CAP PO SCH ×3 (09:04→20:53)
[2017-05-02] MEDS: ZINC SULFATE 220 MG CAP PO SCH (09:04)
[2017-05-02] MEDS: ASCORBIC ACID 500 MG TAB PO SCH (09:04)
[2017-05-02] MEDS: HEPARIN 5,000 UNIT/0.5 ML VIAL SC SCH (09:10)
[2017-05-02] MEDS: OXYCODONE/ACETAMINOPHEN (5/325) TAB PO PRN ×2 (09:15→21:03)
[2017-05-02] MEDS: L ACIDOPHIL/B LACTIS/B LONGUM CAPSULE PO SCH ×2 (09:15→20:53)
--- NOTE | 2017-05-02 10:41 | PN ---
Date/Time of Note Date/Time of Note DATE: 05/02/17 TIME: 10:39 Assessment/Plan VTE Prophylaxis VTE Prophylaxis Intervention: SCD's Lines/Catheters IV Catheter Type (from Nrs): PICC Line Central line still needed: Yes Urinary Cath still in place: No Assessment/Plan Chief Complaint/Hosp Course Assessment and plan 1. Complicated urinary tract infection with polymicrobial including ESBL. stable off abx at this time 2. Acute non-oliguric kidney injury. Flavoring Oil Filterer is following. Avoid nephrotoxic medications. Patient of note does have ureteral stents in place. continue with urologist recommendations 3. Bladder cancer. Patient s/p radical cystoprostatectomy and creation of ileal conduit with colonic diversion for fistula formation. 4. s/p perforated viscus repair c CT-guided drainage of previous complicated by intra-abdominal abscess requiring CT-guided drainage on previous admission. Surgeon is following. Minimum 6 months with prior to further expiration per surgeon. 5. Severe protein calorie malnutrition. Remains on TPN per surgery recommendations. 6. Normocytic anemia. Monitor H&H. remains stable at present. 7. 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 on immodium Disposition plan: No plan for surgery at this time. continue with pain management. continue supportive care. Check a.m. labs. Follow-up with case management and family for patient's disposition upon discharge Discussed plan of care with Dr. Tate Problems: Subjective 24 Hr Interval Summary Free Text/Dictation comfortable at present. no s/s of distress. unchanged Exam/Review of Systems Vital Signs Vitals Vital Signs Date Time Temp Pulse Resp B/P Pulse Ox O2 Delivery O2 Flow Rate FiO2 05/02/17 07:15 99.4 67 18 101/58 98 05/01/17 20:21 Room Air Intake and Output 05/01/17 05/01/17 05/02/17 15:00 23:00 07:00 Intake Total 1200 ml 1700 ml Output Total 2800 ml 1700 ml Balance -1600 ml 0 ml Exam Constitutional: alert, oriented Head: normocephalic Neck: non-tender, supple Respiratory: clear to auscultation Cardiovascular: regular rate and rhythm Gastrointestinal: other (Noted with ileostomy and colostomy bag in place), soft Musculoskeletal: nl extremities to inspection Neurological: STEAM [employer]OR MAINTENANCE II-XII intact, nl mental status, nl speech Results Result Diagram: 05/01/17 0433 05/02/17 0417 Results 24 hrs Laboratory Tests Test 05/01/17 12:26 05/01/17 17:53 05/01/17 20:45 05/02/17 04:17 Bedside Glucose 114 84 150 Sodium Level 141 Potassium Level 4.1 Chloride Level 101 Carbon Dioxide Level 27 Anion Gap 17 H Blood Urea Nitrogen 52 H Creatinine 2.01 H Glucose Level 100 Calcium Level 9.3 Test 05/02/17 09:02 Bedside Glucose 116 Medications Medications Current Medications Ondansetron HCl (Zofran Inj) 4 mg Q6H PRN IV NAUSEA AND/OR VOMITING Last administered on 04/30/17 20:23; Admin Dose 4 MG; Start 03/30/17 at 03:30 Heparin Sodium (Porcine) (Heparin (5000 Units/0.5 ml)) 5,000 unit DAILY SC Last administered on 05/02/17 09:10; Admin Dose 5,000 UNIT; Start 03/30/17 at 09:00 Oxycodone/ Acetaminophen 1 tab 1 tab Q4H PRN PO PAIN Last administered on 05/02 09:15; Admin Dose 1 TAB; Start 03/30/17 at 06:00 Total Parenteral Nutrition (Tpn) 1,000 ml @ 70 mls/hr [id number] IV Last administered on 05/01/17 19:08; Admin Dose 70 MLS/HR; Start 03/31/17 at 15:00 Insulin Glargine (Lantus) 10 unit HS SC Last administered on 05/01/17 21:02; Admin Dose 10 UNIT; Start 04/01/17 at 21:00 Miscellaneous Information 1 ea NOTE XX ; Start 03/31/17 at 21:00 Glucose (Glutose) 15 gm Q15M PRN PO DECREASED GLUCOSE; Start 03/31/17 at 21:00 Glucose (Glutose) 22.5 gm Q15M PRN PO DECREASED GLUCOSE; Start 03/31/17 at 21: 00 Dextrose (D50w Syringe) 25 ml Q15M PRN IV DECREASED GLUCOSE; Start 03/31/17 at 21:00 Dextrose (D50w Syringe) 50 ml Q15M PRN IV DECREASED GLUCOSE; Start 03/31/17 at 21:00 Glucagon (Glucagen) 1 mg Q15M PRN IM DECREASED GLUCOSE; Start 03/31/17 at 21: 00 Glucose (Glutose) 15 gm Q15M PRN BUCCAL DECREASED GLUCOSE; Start 03/31/17 at 21:00 Diagnostic Test (Pha) (Accu-Chek) 1 ea 02 XX Last administered on 04/22/17 02 :00; Admin Dose 1 EA; Start 04/06/17 at 02:00 Ascorbic Acid (Vitamin C) 500 mg DAILY PO Last administered on 05/02/17 09:04 ; Admin Dose 500 MG; Start 04/11/17 at 09:00 Zinc Sulfate (Zinc Sulfate) 220 mg DAILY PO Last administered on 05/02/17 09: 04; Admin Dose 220 MG; Start 04/11/17 at 09:00 Fentanyl (Duragesic 25 Mcg/Hr Patch) 1 patch Q3D TRANSDERM Last administered on 04/29/17 18:16; Admin Dose 1 PATCH; Start 04/11/17 at 17:00 Loperamide HCl (Imodium Cap) 2 mg TID PO Last administered on 05/02/17 09:04 ; Admin Dose 2 MG; Start 04/15/17 at 13:00 Nystatin (Nystatin Powder) 1 applic PRN TOP Last administered on 04/25/17 18: 06; Admin Dose 1 APPLIC; Start 04/16/17 at 16:30 Acetaminophen (Tylenol Tab) 650 mg Q6H PRN PO PAIN AND OR ELEVATED TEMP Last administered on 04/20/17 22:42; Admin Dose 650 MG; Start 04/20/17 at 22:00 Lactobacillus Acidophilus (Florajen3 Capsule) 1 each BID PO Last administered on 05/02/17 09:15; Admin Dose 1 EACH; Start 04/21/17 at 21:00 ALLISON HAYWARD May 02, 2017 10:41
--- NOTE | 2017-05-02 12:40 | CONS ---
Date/Time of Note Date/Time of Note DATE: 05/02/17 TIME: 12:26 Assessment/Plan Assessment/Plan Additional Assessment/Plan 1. acute kidney injury Non oliguric .2/2 ATN+ prerenal azotemia - cr trnded up -2.01 today - will give IVF x 2 Liters - will monitor Cr and electrolytes 2. H/o ESBL UTI 3.history of bladder cancer s/p TURBT, chemotherapy/radiation, urethral damage, chemo/radiation induced urinary and fecal incontinence. He underwent cystoprostatectomy with urinary diversion, ileal conduit, colonic diversion for fistula on last admission 4. Anemia of Chronic disease 5. Severe protein calorie malnutrition Plan: - IV ertapenem 1 gram IV daily - on TPN - cr 2.01 today, will monitor Cr and electrolytes -will continue to follow up Plan of care dw Dr Dion Miranda Consultation Date/Type/Reason Admit Date/Time Mar 30, 2017 at 02:24 Initial Consult Date 04/01/17 Type of Consultation: ID Referring Provider: ALLISON HAYWARD 24 HR Interval Summary Free Text/Dictation - NAD - afebrile - rt foot sole pain at rest/ weight bearing- better - BUN- 543/ Cr 2.01- will give 1 liter iVf, labs am - patient is asking to empty colostomy bag Constitutional: requiring IVF Detailed Summary Respiratory: no complaints Cardiovascular: no complaints Gastrointestinal: pain Genitourinary: no complaints Musculoskeletal: no complaints Exam/Review of Systems Vital Signs Vitals Vital Signs Date Time Temp Pulse Resp B/P Pulse Ox O2 Delivery O2 Flow Rate FiO2 05/02/17 07:15 99.4 67 18 101/58 98 05/01/17 20:21 Room Air Intake and Output 05/01/17 05/01/17 05/02/17 15:00 23:00 07:00 Intake Total 1200 ml 1700 ml Output Total 2800 ml 1700 ml Balance -1600 ml 0 ml Exam Constitutional: alert, frail, oriented Psych: nl mood/affect Respiratory: diminished breath sounds, normal air movement Cardiovascular: nl pulses, other (s1s2) Gastrointestinal: other (colostomy intact), soft, tender Musculoskeletal: nl extremities to inspection Extremities: normal pulses Neurological: nl mental status, nl speech Results Result Diagram: 05/01/17 0433 05/02/17 0417 Results 24 hrs Laboratory Tests Test 05/01/17 17:53 05/01/17 20:45 05/02/17 04:17 05/02/17 09:02 Bedside Glucose 84 150 116 Sodium Level 141 Potassium Level 4.1 Chloride Level 101 Carbon Dioxide Level 27 Anion Gap 17 H Blood Urea Nitrogen 52 H Creatinine 2.01 H Glucose Level 100 Calcium Level 9.3 Medications Medications Current Medications Ondansetron HCl (Zofran Inj) 4 mg Q6H PRN IV NAUSEA AND/OR VOMITING Last administered on 04/30/17 20:23; Admin Dose 4 MG; Start 03/30/17 at 03:30 Heparin Sodium (Porcine) (Heparin (5000 Units/0.5 ml)) 5,000 unit DAILY SC Last administered on 05/02/17 09:10; Admin Dose 5,000 UNIT; Start 03/30/17 at 09:00 Oxycodone/ Acetaminophen 1 tab 1 tab Q4H PRN PO PAIN Last administered on 05/02 09:15; Admin Dose 1 TAB; Start 03/30/17 at 06:00 Total Parenteral Nutrition (Tpn) 1,000 ml @ 70 mls/hr [id number] IV Last administered on 05/01/17 19:08; Admin Dose 70 MLS/HR; Start 03/31/17 at 15:00 Insulin Glargine (Lantus) 10 unit HS SC Last administered on 05/01/17 21:02; Admin Dose 10 UNIT; Start 04/01/17 at 21:00 Miscellaneous Information 1 ea NOTE XX ; Start 03/31/17 at 21:00 Glucose (Glutose) 15 gm Q15M PRN PO DECREASED GLUCOSE; Start 03/31/17 at 21:00 Glucose (Glutose) 22.5 gm Q15M PRN PO DECREASED GLUCOSE; Start 03/31/17 at 21: 00 Dextrose (D50w Syringe) 25 ml Q15M PRN IV DECREASED GLUCOSE; Start 03/31/17 at 21:00 Dextrose (D50w Syringe) 50 ml Q15M PRN IV DECREASED GLUCOSE; Start 03/31/17 at 21:00 Glucagon (Glucagen) 1 mg Q15M PRN IM DECREASED GLUCOSE; Start 03/31/17 at 21: 00 Glucose (Glutose) 15 gm Q15M PRN BUCCAL DECREASED GLUCOSE; Start 03/31/17 at 21:00 Diagnostic Test (Pha) (Accu-Chek) 1 ea 02 XX Last administered on 04/22/17 02 :00; Admin Dose 1 EA; Start 04/06/17 at 02:00 Ascorbic Acid (Vitamin C) 500 mg DAILY PO Last administered on 05/02/17 09:04 ; Admin Dose 500 MG; Start 04/11/17 at 09:00 Zinc Sulfate (Zinc Sulfate) 220 mg DAILY PO Last administered on 05/02/17 09: 04; Admin Dose 220 MG; Start 04/11/17 at 09:00 Fentanyl (Duragesic 25 Mcg/Hr Patch) 1 patch Q3D TRANSDERM Last administered on 04/29/17 18:16; Admin Dose 1 PATCH; Start 04/11/17 at 17:00 Loperamide HCl (Imodium Cap) 2 mg TID PO Last administered on 05/02/17 09:04 ; Admin Dose 2 MG; Start 04/15/17 at 13:00 Nystatin (Nystatin Powder) 1 applic PRN TOP Last administered on 04/25/17 18: 06; Admin Dose 1 APPLIC; Start 04/16/17 at 16:30 Acetaminophen (Tylenol Tab) 650 mg Q6H PRN PO PAIN AND OR ELEVATED TEMP Last administered on 04/20/17 22:42; Admin Dose 650 MG; Start 04/20/17 at 22:00 Lactobacillus Acidophilus (Florajen3 Capsule) 1 each BID PO Last administered on 05/02/17 09:15; Admin Dose 1 EACH; Start 04/21/17 at 21:00 MARSHAL SLATER May 02, 2017 12:36
[2017-05-02] MEDS: TPN 1,000 ML IV SCH (12:55)
[2017-05-02] MEDS: SOD CHLORIDE 0.9% 1,000 ML IV SCH (12:56)
--- NOTE | 2017-05-02 13:18 | CONS ---
Date/Time of Note Date/Time of Note DATE: 05/02/17 TIME: 13:14 Assessment/Plan Assessment/Plan Chief Complaint/Hosp Course ID PROGRESS NOTE CURRENT ABX: => OFF ABX DAY #5 => START FLAGYL IV + Short course Bactrim IV for infected radiation proctitis s/p Levaquin DC'd 04/23/s/p Ertapenem -> DC'd 04/27 S/P DAY # 11 => Zyvox + Merrem -> DC' 04/09/17 pm 24H INTERVAL SUMMARY * Today patient called family member to translate into [place] -- he started feeling feverish yesterday due to increased rectal drainage w/pus -- he has Low grade TMax 99.4 today, no WBC this am, S.Creatine 2.0 * Surgery note reviewed: Multiple ostomy sites w/healthy pink tissue; rectal discharge; 2nd opinion surgical consult pending PHYSICAL EXAMINATION: GENERAL: Frail, cachectic M, lethargic, awakens, A/A/O -> VSS, NAD HEENT: Bilateral temporal wasting NECK: Supple, full ROM CHEST: Equal chest rise bilaterally, without dyspnea on room air CV: Radial pulse RRR ABD: Soft, colostomy, ileostomy conduit : Deferred, no FC EXT: Warm, no C/C/E, ambulatory moves all extremities SKIN: No rash, no diaphoresis ID ASSESSMENT 66 yo M w/ PMHx bladder cancer re-admitted with: 1. SIRS w/ low grade temps 99.6 range => suspect due to #2 2. Radiation proctitis w/purulent drainage -> Will send cultures 05/02/17 3. s/p complicated UTI -> resolved * Hx of obstructive uropathy w/bilateral JJ stents prior admission 4. Bladder/Prostate Cancer * s/p chemotherapy/radiation where he sustained urethral damage as well as fecal and urinary incontinence as a result of chemo/radiation treatment. * s/p cystoprostatectomy with urinary diversion prior admission * Ileostomy conduit w/pink stoma 4. Acute renal failure=> IMPROVED * CT of the abdomen and pelvis revealed mild bilateral hydronephrosis and bilateral ureteral stents. 5. History of perforated viscus repair with multiple pelvic abscess drainage * s/p 01/05/18 Perforated viscous with leak s/p ex lap, extensive lysis adhesions , small bowel proximal looped ostomy 01/05/17 * Colostomy state=> Stable * Open ABD wound => local wound care treatment 6. Microcytic anemia: 2/2 chronic disease + chemo/radiation +/- post-surgical; h/h stable 7. Transaminitis 8. Osteoarthritis: DJD spine 9. Generalized weakness w/debility + cachexia w/ hypoalbuminemia: malnutrition = > appears stable * TPN + taking POx (-)MRSA Nares Screen CURRENT ABX: => OFF ABX DAY #4 => START FLAGYL IV + Short course Bactrim IV for infected radiation proctitis s/p Levaquin DC'd 04/23/s/p Ertapenem -> DC'd 04/27 S/P DAY # 11 => Zyvox + Merrem -> DC' 04/09/17 pm ID RECOMMENDATIONS 1. SIRS w/ low grade temps 99.6 range => patient complaining he has not felt well past 36H -- feverish w/increased rectal drainage w/pus * Will order rectal drainage culture and => START FLAGYL IV + Short course Bactrim IV for infected radiation proctitis * Short course Bactrim -- watch renal fx; adust ABX per micro results. 2. Per surgery notes prior admission, the plan was to anticipate TPN 6 mos w/ Possible repeat exploration future. 3. Surgery note reviewed: Multiple ostomy sites w/healthy pink tissue; rectal discharge; 2nd opinion surgical consult pending * Continue local wound care . . Problems: Consultation Date/Type/Reason Admit Date/Time Mar 30, 2017 at 02:24 Initial Consult Date 04/01/17 Type of Consultation: ID Referring Provider: ALLISON HAYWARD Exam/Review of Systems Vital Signs Vitals Vital Signs Date Time Temp Pulse Resp B/P Pulse Ox O2 Delivery O2 Flow Rate FiO2 05/02/17 07:15 99.4 67 18 101/58 98 05/01/17 20:21 Room Air Intake and Output 05/01/17 05/01/17 05/02/17 15:00 23:00 07:00 Intake Total 1200 ml 1700 ml Output Total 2800 ml 1700 ml Balance -1600 ml 0 ml Results Result Diagram: 05/01/17 0433 05/02/17 0417 Results 24 hrs Laboratory Tests Test 05/01/17 17:53 05/01/17 20:45 05/02/17 04:17 05/02/17 09:02 Bedside Glucose 84 150 116 Sodium Level 141 Potassium Level 4.1 Chloride Level 101 Carbon Dioxide Level 27 Anion Gap 17 H Blood Urea Nitrogen 52 H Creatinine 2.01 H Glucose Level 100 Calcium Level 9.3 Medications Medications Current Medications Ondansetron HCl (Zofran Inj) 4 mg Q6H PRN IV NAUSEA AND/OR VOMITING Last administered on 04/30/17 20:23; Admin Dose 4 MG; Start 03/30/17 at 03:30 Heparin Sodium (Porcine) (Heparin (5000 Units/0.5 ml)) 5,000 unit DAILY SC Last administered on 05/02/17 09:10; Admin Dose 5,000 UNIT; Start 03/30/17 at 09:00 Oxycodone/ Acetaminophen 1 tab 1 tab Q4H PRN PO PAIN Last administered on 05/02 09:15; Admin Dose 1 TAB; Start 03/30/17 at 06:00 Total Parenteral Nutrition (Tpn) 1,000 ml @ 70 mls/hr [id number] IV Last administered on 05/01/17 19:08; Admin Dose 70 MLS/HR; Start 03/31/17 at 15:00 Insulin Glargine (Lantus) 10 unit HS SC Last administered on 05/01/17 21:02; Admin Dose 10 UNIT; Start 04/01/17 at 21:00 Miscellaneous Information 1 ea NOTE XX ; Start 03/31/17 at 21:00 Glucose (Glutose) 15 gm Q15M PRN PO DECREASED GLUCOSE; Start 03/31/17 at 21:00 Glucose (Glutose) 22.5 gm Q15M PRN PO DECREASED GLUCOSE; Start 03/31/17 at 21: 00 Dextrose (D50w Syringe) 25 ml Q15M PRN IV DECREASED GLUCOSE; Start 03/31/17 at 21:00 Dextrose (D50w Syringe) 50 ml Q15M PRN IV DECREASED GLUCOSE; Start 03/31/17 at 21:00 Glucagon (Glucagen) 1 mg Q15M PRN IM DECREASED GLUCOSE; Start 03/31/17 at 21: 00 Glucose (Glutose) 15 gm Q15M PRN BUCCAL DECREASED GLUCOSE; Start 03/31/17 at 21:00 Diagnostic Test (Pha) (Accu-Chek) 1 ea 02 XX Last administered on 04/22/17 02 :00; Admin Dose 1 EA; Start 04/06/17 at 02:00 Ascorbic Acid (Vitamin C) 500 mg DAILY PO Last administered on 05/02/17 09:04 ; Admin Dose 500 MG; Start 04/11/17 at 09:00 Zinc Sulfate (Zinc Sulfate) 220 mg DAILY PO Last administered on 05/02/17 09: 04; Admin Dose 220 MG; Start 04/11/17 at 09:00 Fentanyl (Duragesic 25 Mcg/Hr Patch) 1 patch Q3D TRANSDERM Last administered on 04/29/17 18:16; Admin Dose 1 PATCH; Start 04/11/17 at 17:00 Loperamide HCl (Imodium Cap) 2 mg TID PO Last administered on 05/02/17 09:04 ; Admin Dose 2 MG; Start 04/15/17 at 13:00 Nystatin (Nystatin Powder) 1 applic PRN TOP Last administered on 04/25/17 18: 06; Admin Dose 1 APPLIC; Start 04/16/17 at 16:30 Acetaminophen (Tylenol Tab) 650 mg Q6H PRN PO PAIN AND OR ELEVATED TEMP Last administered on 04/20/17 22:42; Admin Dose 650 MG; Start 04/20/17 at 22:00 Lactobacillus Acidophilus 1 each 1 each BID PO Last administered on 05/02/17 09:15; Admin Dose 1 EACH; Start 04/21/17 at 21:00 Sodium Chloride (NS) 1,000 ml @ 75 mls/hr [id number] IV ; Start 05/02/17 at 13:00 ; Stop 05/03/17 at 15:39 MELO KANG NP May 02, 2017 13:18 MELO KANG NP May 02, 2017 13:18
[2017-05-02] MEDS: TRIMETHOPRIM/SULFAMETHOXAZOLE 10 ML in DEXTROSE 5% 250 ML IVPB SCH ×2 (14:52→21:49)
[2017-05-02] MEDS: metroNIDAZOLE 500 MG/NS (PMX) 100 ML IVPB SCH ×2 (14:52→21:04)
[2017-05-02 19:11] VITALS: BP 94/55; RESP 16
[2017-05-02] MEDS: INSULIN GLARGINE [LANtus] 3 ML PEN SC SCH (20:55)
[2017-05-02] MEDS: ONDANSETRON 4 MG INJ IV PRN (21:49)
--- NOTE | 2017-05-02 21:54 | PN ---
Date/Time of Note Date/Time of Note DATE: 05/02/17 TIME: 21:52 Assessment/Plan Lines/Catheters IV Catheter Type (from Nrs): PICC Line Tomas in Place (from Nrs): No Assessment/Plan Chief Complaint/Hosp Course 1. Multiple ostomies and ileal conduit: all ostomies pink and moist; s/p multiple Perforated viscous w small bowel proximal looped ostomy (minimum 6 month wait prior to considering attempting abdominal re-exploration); rectal discharge; 2nd opinion surgical input noted. -continue ostomy care -continue oral feed and supplements; hopefully can wean off tpn for discharge to snf -continue local abdominal wound care-w vac -oral diet as tolerated with protein shakes and probiotics -oob/ambulate -urology input noted -TPN 2. UTI (polymicrobial, complicated)pink with mucous urine, cultures noted -abx/antimicrobials per sensitivity -frequent bladder emptying/cath care -urology 3. Malnutrition: tolerating solid diet;refusing supplements -continue tpn -vitamins, probiotics, and nutritional supplements -encourage supplements -calorie count; hopefully wean off tpn if able for dc to snf if unable to find snf that accepts tpn -started on antimotility agent and fish oil 4. MANA: worse today -judicious fluids -limit nephrotoxic meds -per renal 5. Bladder cancer: s/p chemo/radiation, s/p cystoprostatectomy with urinary diversion -per oncology/urology 6. Normocytic hypochromic anemia: no overt bleed noted -monitor -transfuse as needed -further workup per medical team 7. Pelvic pain:on fentanyl patch; still with pain; ? up titrate med -pain management 8. Min temp: cxr negative -further workup if fever spikes 9. Transaminitis -Monitor Thank you, Problems: Subjective 24 Hr Interval Summary No fevers. Abdominal pain. Min discharge from rectum on/off. No fevers, chills , sob, congested cough, cp, palpitations, craig, dizziness, n/v/d/dysuria. Exam/Review of Systems Vital Signs Vitals Vital Signs Date Time Temp Pulse Resp B/P Pulse Ox O2 Delivery O2 Flow Rate FiO2 05/02/17 19:11 99.1 74 16 94/55 93 05/01/17 20:21 Room Air Intake and Output 05/01/17 05/01/17 05/02/17 15:00 23:00 07:00 Intake Total 1200 ml 1700 ml Output Total 2800 ml 1700 ml Balance -1600 ml 0 ml Exam Free Text/Dictation Constitutional: alert, frail, oriented Psych: min anxious Head: atraumatic, normocephalic Eyes: nl lids, nl sclera ENMT: mucosa pink and moist, nl nasal mucosa & septum Neck: non-tender, supple Respiratory: normal air movement Cardiovascular: nl pulses, regular rate and rhythm Gastrointestinal: non-tender, other (ileostomy, colostomy,ileal conduit -all ostomies pink and moist), soft, wound scan drainage, no erythema Genitourinary - Male: nl penis, nl scrotum; ileal conduit with mucous/sediment output Musculoskeletal: nl extremities to inspection, nl gait and stance Extremities: normal pulses, No edema Neurological: nl mental status, nl speech Skin: nl turgor, rash or lesions; lower abdomen wound; redness/irritation around ostomies Results Result Diagram: 05/01/17 0433 05/02/17 0417 OPAL CRUZ MD May 02, 2017 21:54
[2017-05-03 01:50] VITALS: BP 92/55; RESP 14
[2017-05-03] MEDS: ACCUCHECK AT 2AM (Patients on SS coverage) XX SCH (02:00)
[2017-05-03] MEDS: SOD CHLORIDE 0.9% 1,000 ML IV SCH ×2 (02:20→06:01)
[2017-05-03] MEDS: metroNIDAZOLE 500 MG/NS (PMX) 100 ML IVPB SCH ×3 (05:02→20:35)
[2017-05-03] MEDS: TPN 1,000 ML IV SCH ×2 (05:02→21:09)
[2017-05-03 05:04] LABS: BASOPHILS % 0.4 % (0.0-2.0); EOSINOPHILS # 0.2 10^3/ul (0.0-0.5); EOSINOPHILS % 2.1 % (0.0-7.0); HEMATOCRIT 25.7 % (42.0-52.0); HEMOGLOBIN 8.4 g/dl (14.0-18.0); LYMPHOCYTES # 1.9 10^3/ul (0.8-2.9); LYMPHOCYTES % 22.8 % (15.0-51.0); MEAN CORPUSCULAR HEMOGLOBIN 27.9 pg (29.0-33.0); MEAN CORPUSCULAR HGB CONC 32.7 g/dl (32.0-37.0); MEAN CORPUSCULAR VOLUME 85.4 fl (82.0-101.0); MEAN PLATELET VOLUME 9.2 fl (7.4-10.4); MONOCYTE # 0.7 10^3/ul (0.3-0.9); MONOCYTES % 7.9 % (0.0-11.0); NEUTROPHIL # 5.6 10^3/ul (1.6-7.5); PLATELET COUNT 274 10^3/UL (140-415); RED BLOOD COUNT 3.01 10^6/ul (4.70-6.10); RED CELL DISTRIBUTION WIDTH 14.6 % (11.5-14.5); WHITE BLOOD COUNT 8.5 10^3/ul (4.8-10.8)
[2017-05-03 05:24] LABS: CALCIUM 9.4 mg/dl (8.4-10.2); CREATININE 2.06 mg/dl (0.61-1.24); POTASSIUM 4.1 mmol/L (3.5-5.1)
[2017-05-03] MEDS: TRIMETHOPRIM/SULFAMETHOXAZOLE 10 ML in DEXTROSE 5% 250 ML IVPB SCH ×3 (06:01→21:56)
[2017-05-03 07:24] VITALS: BP 100/55; RESP 20
[2017-05-03] MEDS: Insulin NOVOLOG SS MODERATE Algorithm (SS with meals and bedtime) SC SCH ×4 (07:50→21:00)
[2017-05-03] MEDS: LOPERAMIDE 2 MG CAP PO SCH ×3 (08:48→20:34)
[2017-05-03] MEDS: ASCORBIC ACID 500 MG TAB PO SCH (08:48)
[2017-05-03] MEDS: L ACIDOPHIL/B LACTIS/B LONGUM CAPSULE PO SCH ×2 (08:48→20:34)
[2017-05-03] MEDS: ZINC SULFATE 220 MG CAP PO SCH (08:48)
[2017-05-03] MEDS: HEPARIN 5,000 UNIT/0.5 ML VIAL SC SCH (08:58)
--- NOTE | 2017-05-03 09:03 | PN ---
Date/Time of Note Date/Time of Note DATE: 05/03/17 TIME: 08:58 Assessment/Plan VTE Prophylaxis VTE Prophylaxis Intervention: heparin Lines/Catheters IV C[facility]ter Type (from [facility]): PICC Line Central line still needed: Yes Urinary Cath still in place: No Assessment/Plan Chief Complaint/Hosp Course 1. Complicated urinary tract infection with polymicrobial's including E. coli ESBL. Status post antimicrobials as per infectious diseases. Repeat urine cultures also showing E. coli ESBL and Stenotrophomonas maltophilia. Therefore, the patient was restarted on antibiotics. 2. Acute nonoliguric kidney injury. Etiology unclear. The patient being followed by nephrology. Use nephrotoxic drugs with caution. 3. Bladder cancer. Status post radical cystoprostatectomy and creation of ileal conduit with colonic diversion for fistula formation. S./P Urology evaluation who agreed with the current management. 4. Status post perforated viscus repair complicated by intra-abdominal abscess requiring CT-guided drainage on previous admission. Being followed by surgery. 5. Severe protein calorie malnutrition. Patient on TPN. The patient on a mechanical soft diet. 6. Normocytic anemia. Etiology unclear. Probably anemia of chronic disease. 7. Fluids, electrolytes, and nutrition. TPN. Mechanical soft diet. 8. DVT prophylaxis. Subcutaneous heparin. 9. Plan. Await placement versus discharge home with home health. Case discussed with Dr. Mireles. Problems: Subjective 24 Hr Interval Summary Free Text/Dictation The patient remains afebrile. Exam/Review of Systems Vital Signs Vitals Vital Signs Date Time Temp Pulse Resp B/P Pulse Ox O2 Delivery O2 Flow Rate FiO2 05/03/17 07:24 98.3 65 20 100/55 96 05/01/17 20:21 Room Air Intake and Output 05/02/17 05/02/17 05/03/17 15:00 23:00 07:00 Intake Total 200 ml 2860 ml Output Total 2000 ml 1600 ml Balance -1800 ml 1260 ml Exam General:, Thin, frail looking 66 year-old male lying in bed in no apparent distress. HEENT: Normocephalic, atraumatic. Eyes: Anicteric sclerae, conjunctivae clear. ENT: Nasal septum midline, oral mucosa moist. Neck supple, no JVD noticed. Respiratory: Bilaterally diminished breath sounds. No use of accessory muscles of respiration. No adventitious breath sounds. Cardiovascular: S1, S2 heard. No murmurs or gallops. Abdomen: Soft, nontender, and nondistended. Ileostomy draining light brown liquid output (less amount). Colostomy pink bud moist. Ileal conduit. Genitourinary: Deferred. Extremities: No cyanosis, no clubbing, no edema. Peripheral pulses palpable. Neurologic: Cranial nerves II through XII grossly intact. The patient is awake, alert, and oriented. Skin: Normal skin turgor. No skin rashes. Results Result Diagram: 05/03/178 05/03/17427 Results 24 hrs Laboratory Tests Test 05/02/17 09:02 05/02/17 13:13 05/02/17 17:43 05/02/17 20:53 Bedside Glucose 116 117 104 137 Test 05/03/17 01:57 05/03/17 04:28 05/03/17 08:45 Bedside Glucose 124 92 White Blood Count 8.5 Red Blood Count 3.01 L Hemoglobin 8.4 L Hematocrit 25.7 L Mean Corpuscular Volume 85.4 Mean Corpuscular Hemoglobin 27.9 L Mean Corpuscular Hemoglobin Concent 32.7 Red Cell Distribution Width 14.6 H Platelet Count 274 Mean Platelet Volume 9.2 Neutrophils % 66.0 Lymphocytes % 22.8 Monocytes % 7.9 Eosinophils % 2.1 Basophils % 0.4 Nucleated Red Blood Cells % 0.0 Neutrophils # 5.6 Lymphocytes # 1.9 Monocytes # 0.7 Eosinophils # 0.2 Basophils # 0.0 Nucleated Red Blood Cells # 0.0 Sodium Level 141 Potassium Level 4.1 Chloride Level 104 Carbon Dioxide Level 27 Anion Gap 14 Blood Urea Nitrogen 52 H Creatinine 2.06 H Glucose Level 83 Calcium Level 9.4 Medications Medications Current Medications Ondansetron HCl (Zofran Inj) 4 mg Q6H PRN IV NAUSEA AND/OR VOMITING Last administered on 05/02/17 21:49; Admin Dose 4 MG; Start 03/30/17 at 03:30 Heparin Sodium (Porcine) (Heparin (5000 Units/0.5 ml)) 5,000 unit DAILY SC Last administered on 05/02/17 09:10; Admin Dose 5,000 UNIT; Start 03/30/17 at 09:00 Oxycodone/ Acetaminophen 1 tab 1 tab Q4H PRN PO PAIN Last administered on 05/02 21:03; Admin Dose 1 TAB; Start 03/30/17 at 06:00 Total Parenteral Nutrition (Tpn) 1,000 ml @ 70 mls/hr [id number] IV Last administered on 05/03/17 05:02; Admin Dose 70 MLS/HR; Start 03/31/17 at 15:00 Insulin Glargine (Lantus) 10 unit HS SC Last administered on 05/02/17 20:55; Admin Dose 10 UNIT; Start 04/01/17 at 21:00 Miscellaneous Information 1 ea NOTE XX ; Start 03/31/17 at 21:00 Glucose (Glutose) 15 gm Q15M PRN PO DECREASED GLUCOSE; Start 03/31/17 at 21:00 Glucose (Glutose) 22.5 gm Q15M PRN PO DECREASED GLUCOSE; Start 03/31/17 at 21: 00 Dextrose (D50w Syringe) 25 ml Q15M PRN IV DECREASED GLUCOSE; Start 03/31/17 at 21:00 Dextrose (D50w Syringe) 50 ml Q15M PRN IV DECREASED GLUCOSE; Start 03/31/17 at 21:00 Glucagon (Glucagen) 1 mg Q15M PRN IM DECREASED GLUCOSE; Start 03/31/17 at 21: 00 Glucose (Glutose) 15 gm Q15M PRN BUCCAL DECREASED GLUCOSE; Start 03/31/17 at 21:00 Diagnostic Test (Pha) (Accu-Chek) 1 ea 02 XX Last administered on 04/22/17 02 :00; Admin Dose 1 EA; Start 04/06/17 at 02:00 Ascorbic Acid (Vitamin C) 500 mg DAILY PO Last administered on 05/02/17 09:04 ; Admin Dose 500 MG; Start 04/11/17 at 09:00 Zinc Sulfate (Zinc Sulfate) 220 mg DAILY PO Last administered on 05/02/17 09: 04; Admin Dose 220 MG; Start 04/11/17 at 09:00 Fentanyl (Duragesic 25 Mcg/Hr Patch) 1 patch Q3D TRANSDERM Last administered on 05/02/17 17:55; Admin Dose 1 PATCH; Start 04/11/17 at 17:00 Loperamide HCl (Imodium Cap) 2 mg TID PO Last administered on 05/02/17 20:53 ; Admin Dose 2 MG; Start 04/15/17 at 13:00 Nystatin (Nystatin Powder) 1 applic PRN TOP Last administered on 04/25/17 18: 06; Admin Dose 1 APPLIC; Start 04/16/17 at 16:30 Acetaminophen (Tylenol Tab) 650 mg Q6H PRN PO PAIN AND OR ELEVATED TEMP Last administered on 04/20/17 22:42; Admin Dose 650 MG; Start 04/20/17 at 22:00 Lactobacillus Acidophilus 1 each 1 each BID PO Last administered on 05/02/17 20:53; Admin Dose 1 EACH; Start 04/21/17 at 21:00 Sodium Chloride 1,000 ml @ 75 mls/hr [id number] IV Last administered on 06:01; Admin Dose 75 MLS/HR; Start 05/02/17 at 13:00; Stop 05/03/17 at 15 :39 Metronidazole 100 ml @ 100 mls/hr Q8 IVPB Last administered on 05/03/17 05: 02; Admin Dose 100 MLS/HR; Start 05/02/17 at 14:00 Trimethoprim/ Sulfamethoxazole/ Dextrose (Bactrim/D5W) 260 ml @ 173.333 mls/hr Q8 IVPB Last administered on 05/03/17 06:01; Admin Dose 173.333 MLS/HR; Start 05/02/17 at 14:00 BRENDA PETTIT NP May 03, 2017 09:03 BRENDA PETTIT NP May 03, 2017 09:03
--- NOTE | 2017-05-03 11:37 | PN ---
Date/Time of Note Date/Time of Note DATE: 05/03/17 TIME: 11:28 Assessment/Plan Lines/Catheters IV Catheter Type (from Nrs): PICC Line Tomas in Place (from Nrs): No Assessment/Plan Chief Complaint/Hosp Course 1. Multiple ostomies and ileal conduit: all ostomies pink and moist; s/p multiple Perforated viscous w small bowel proximal looped ostomy (minimum 6 month wait prior to considering attempting abdominal re-exploration); rectal discharge; 2nd opinion surgical input noted. -continue ostomy care -continue oral feed and supplements; hopefully can wean off tpn for discharge to snf -continue local abdominal wound care-w vac -oral diet as tolerated with protein shakes and probiotics -oob/ambulate -urology input noted -TPN 2. UTI (polymicrobial, complicated)pink with mucous urine, cultures noted -abx/antimicrobials per sensitivity -frequent bladder emptying/cath care -urology 3. Malnutrition: tolerating solid diet;refusing supplements -continue tpn -vitamins, probiotics, and nutritional supplements (currently refusing some supplements) -encourage supplements -hopefully wean off tpn if able for dc to snf if unable to find snf that accepts tpn -antimotility agent 4. MANA: worse today -judicious fluids -limit nephrotoxic meds -per renal 5. Bladder cancer: s/p chemo/radiation, s/p cystoprostatectomy with urinary diversion -per oncology/urology 6. Normocytic hypochromic anemia: no overt bleed noted -monitor -transfuse as needed -further workup per medical team 7. Pelvic pain:on fentanyl patch; improved pain -pain management 8. Transaminitis -Monitor Thank you. Patient seen and examined in collaboration with Dr. Bang Ross Problems: Subjective 24 Hr Interval Summary Abdominal wound healed. Continues on tpn. Refusing some supplements. Cr min up. No fevers, chills, sob, congested cough, cp, palpitations, craig, dizziness, n/v/d/ dysuria. Pain improved. Exam/Review of Systems Vital Signs Vitals Vital Signs Date Time Temp Pulse Resp B/P Pulse Ox O2 Delivery O2 Flow Rate FiO2 05/03/17 07:24 98.3 65 20 100/55 96 05/01/17 20:21 Room Air Intake and Output 11/05/02/17 05/03/17 14:59 22:59 06:59 Intake Total 200 ml 2860 ml Output Total 2000 ml 1600 ml Balance -1800 ml 1260 ml Exam Free Text/Dictation Constitutional: alert, frail, oriented Psych: min anxious Head: atraumatic, normocephalic Eyes: nl lids, nl sclera ENMT: mucosa pink and moist, nl nasal mucosa & septum Neck: non-tender, supple Respiratory: normal air movement Cardiovascular: nl pulses, regular rate and rhythm Gastrointestinal: non-tender, other (ileostomy, colostomy,ileal conduit -all ostomies pink and moist), soft, wound scan drainage, no erythema Genitourinary - Male: nl penis, nl scrotum; ileal conduit with mucous/sediment output Musculoskeletal: nl extremities to inspection, nl gait and stance Extremities: normal pulses, No edema Neurological: nl mental status, nl speech Skin: nl turgor, rash or lesions; lower abdomen wound healed Results Result Diagram: 05/03/17 0428 05/03/17 0428 IFTIKHAR ROBERTSON NP May 03, 2017 11:37
--- NOTE | 2017-05-03 12:42 | CONS ---
Date/Time of Note Date/Time of Note DATE: 05/03/17 TIME: 12:41 Assessment/Plan Assessment/Plan Chief Complaint/Hosp Course SUBJECTIVE: No acute changes overnight. Alert, feels good, denies pain, no fevers MICROBIOLOGY: Repeat urine culture on 04/18/2017 grew E. coli ESBL and Stenotrophomonas maltophilia. PHYSICAL EXAMINATION: GENERAL: This is a cachectic, chronically ill-appearing, elderly, [place] man who is awake, in no distress. HEENT: Head atraumatic, normocephalic. Sclerae anicteric. Buccal mucosa dry. NECK: Supple. CHEST: Rise symmetrical. Breath sounds clear. HEART: S1, S2. ABDOMEN: Soft. Bowel tones present. ASSESSMENT: 1. S/p recurrent urinary tract infection. 2. History of bladder and prostate cancer, status post chemoradiation, cystoprostatectomy with urinary diversion and ileostomy conduit. 3. History of perforated viscus repair. 4. Acute renal failure. 5. Cachexia. 6. History of obstructive uropathy, status post bilateral JJ stent placement. PLAN: The patient remains stable. Off antibiotics. Continue present care, follow recommendations of specialists. Awaiting for placement [facility] staff patient Problems: Consultation Date/Type/Reason Admit Date/Time Mar 30, 2017 at 02:24 Initial Consult Date 04/01/17 Type of Consultation: ID Referring Provider: ALLISON HAYWARD Exam/Review of Systems Vital Signs Vitals Vital Signs Date Time Temp Pulse Resp B/P Pulse Ox O2 Delivery O2 Flow Rate FiO2 05/03/17 07:24 98.3 65 20 100/55 96 05/01/17 20:21 Room Air Intake and Output 05/02/17 05/02/17 05/03/17 15:00 23:00 07:00 Intake Total 200 ml 2860 ml Output Total 2000 ml 1600 ml Balance -1800 ml 1260 ml Results Result Diagram: 05/03/17 0428 05/03/17 0428 Results 24 hrs Laboratory Tests Test 05/02/17 13:13 05/02/17 17:43 05/02/17 20:53 05/03/17 01:57 Bedside Glucose 117 104 137 124 Test 05/03/17 04:28 05/03/17 08:45 05/03/17 12:36 White Blood Count 8.5 Red Blood Count 3.01 L Hemoglobin 8.4 L Hematocrit 25.7 L Mean Corpuscular Volume 85.4 Mean Corpuscular Hemoglobin 27.9 L Mean Corpuscular Hemoglobin Concent 32.7 Red Cell Distribution Width 14.6 H Platelet Count 274 Mean Platelet Volume 9.2 Neutrophils % 66.0 Lymphocytes % 22.8 Monocytes % 7.9 Eosinophils % 2.1 Basophils % 0.4 Nucleated Red Blood Cells % 0.0 Neutrophils # 5.6 Lymphocytes # 1.9 Monocytes # 0.7 Eosinophils # 0.2 Basophils # 0.0 Nucleated Red Blood Cells # 0.0 Sodium Level 141 Potassium Level 4.1 Chloride Level 104 Carbon Dioxide Level 27 Anion Gap 14 Blood Urea Nitrogen 52 H Creatinine 2.06 H Glucose Level 83 Calcium Level 9.4 Bedside Glucose 92 138 Medications Medications Current Medications Ondansetron HCl (Zofran Inj) 4 mg Q6H PRN IV NAUSEA AND/OR VOMITING Last administered on 05/02/17 21:49; Admin Dose 4 MG; Start 03/30/17 at 03:30 Heparin Sodium (Porcine) (Heparin (5000 Units/0.5 ml)) 5,000 unit DAILY SC Last administered on 05/03/17 08:58; Admin Dose 5,000 UNIT; Start 03/30/17 at 09:00 Oxycodone/ Acetaminophen 1 tab 1 tab Q4H PRN PO PAIN Last administered on 05/02 21:03; Admin Dose 1 TAB; Start 03/30/17 at 06:00 Total Parenteral Nutrition (Tpn) 1,000 ml @ 70 mls/hr [id number] IV Last administered on 05/03/17 05:02; Admin Dose 70 MLS/HR; Start 03/31/17 at 15:00 Insulin Glargine (Lantus) 10 unit HS SC Last administered on 05/02/17 20:55; Admin Dose 10 UNIT; Start 04/01/17 at 21:00 Miscellaneous Information 1 ea NOTE XX ; Start 03/31/17 at 21:00 Glucose (Glutose) 15 gm Q15M PRN PO DECREASED GLUCOSE; Start 03/31/17 at 21:00 Glucose (Glutose) 22.5 gm Q15M PRN PO DECREASED GLUCOSE; Start 03/31/17 at 21: 00 Dextrose (D50w Syringe) 25 ml Q15M PRN IV DECREASED GLUCOSE; Start 03/31/17 at 21:00 Dextrose (D50w Syringe) 50 ml Q15M PRN IV DECREASED GLUCOSE; Start 03/31/17 at 21:00 Glucagon (Glucagen) 1 mg Q15M PRN IM DECREASED GLUCOSE; Start 03/31/17 at 21: 00 Glucose (Glutose) 15 gm Q15M PRN BUCCAL DECREASED GLUCOSE; Start 03/31/17 at 21:00 Diagnostic Test (Pha) (Accu-Chek) 1 ea 02 XX Last administered on 04/22/17 02 :00; Admin Dose 1 EA; Start 04/06/17 at 02:00 Ascorbic Acid (Vitamin C) 500 mg DAILY PO Last administered on 05/03/17 08:48 ; Admin Dose 500 MG; Start 04/11/17 at 09:00 Zinc Sulfate (Zinc Sulfate) 220 mg DAILY PO Last administered on 05/03/17 08: 48; Admin Dose 220 MG; Start 04/11/17 at 09:00 Fentanyl (Duragesic 25 Mcg/Hr Patch) 1 patch Q3D TRANSDERM Last administered on 05/02/17 17:55; Admin Dose 1 PATCH; Start 04/11/17 at 17:00 Loperamide HCl (Imodium Cap) 2 mg TID PO Last administered on 05/03/17 12:34 ; Admin Dose 2 MG; Start 04/15/17 at 13:00 Nystatin (Nystatin Powder) 1 applic PRN TOP Last administered on 04/25/17 18: 06; Admin Dose 1 APPLIC; Start 04/16/17 at 16:30 Acetaminophen (Tylenol Tab) 650 mg Q6H PRN PO PAIN AND OR ELEVATED TEMP Last administered on 04/20/17 22:42; Admin Dose 650 MG; Start 04/20/17 at 22:00 Lactobacillus Acidophilus 1 each 1 each BID PO Last administered on 05/03/17 08:48; Admin Dose 1 EACH; Start 04/21/17 at 21:00 Sodium Chloride 1,000 ml @ 75 mls/hr [id number] IV Last administered on 06:01; Admin Dose 75 MLS/HR; Start 05/02/17 at 13:00; Stop 05/03/17 at 15 :39 Metronidazole 100 ml @ 100 mls/hr Q8 IVPB Last administered on 05/03/17 05: 02; Admin Dose 100 MLS/HR; Start 05/02/17 at 14:00 Trimethoprim/ Sulfamethoxazole/ Dextrose (Bactrim/D5W) 260 ml @ 173.333 mls/hr Q8 IVPB Last administered on 05/03/17 06:01; Admin Dose 173.333 MLS/HR; Start 05/02/17 at 14:00 KING MARQUES NP May 03, 2017 12:42
[2017-05-03] MEDS: OXYCODONE/ACETAMINOPHEN (5/325) TAB PO PRN ×2 (13:09→20:34)
[2017-05-03 16:00] VITALS: BP 132/63; RESP 20
[2017-05-03 16:37] VITALS: BP 95/54; RESP 20
[2017-05-03] MEDS: ONDANSETRON 4 MG INJ IV PRN (18:18)
[2017-05-03 19:29] VITALS: BP 130/65; RESP 20
--- NOTE | 2017-05-03 20:35 | CONS ---
Date/Time of Note Date/Time of Note DATE: 05/03/17 TIME: 20:33 Assessment/Plan Assessment/Plan Additional Assessment/Plan 1. acute kidney injury Non oliguric .2/2 ATN+ prerenal azotemia 2. H/o ESBL UTI 3.history of bladder cancer s/p TURBT, chemotherapy/radiation, urethral damage, chemo/radiation induced urinary and fecal incontinence. He underwent cystoprostatectomy with urinary diversion, ileal conduit, colonic diversion for fistula on last admission 4. Anemia of Chronic disease 5. Severe protein calorie malnutrition Plan: - IV ertapenem 1 gram IV daily - on TPN - cr 2.06 today, will monitor Cr and electrolytes- pt already received 2 liter of IV fluid so far, -will continue to follow up Consultation Date/Type/Reason Admit Date/Time Mar 30, 2017 at 02:24 Initial Consult Date 03/30/17 Type of Consultation: NEPHROLOGY Referring Provider: ALLISON HAYWARD 24 HR Interval Summary Free Text/Dictation Cr still remain elevated, S/p 1 liter iVF< Bp stable, afebrile, pt is on TPN and IV abx for ESBL infection Exam/Review of Systems Vital Signs Vitals Vital Signs Date Time Temp Pulse Resp B/P Pulse Ox O2 Delivery O2 Flow Rate FiO2 05/03/17 16:37 97.6 60 20 95/54 96 05/01/17 20:21 Room Air Intake and Output 05/02/17 05/02/17 05/03/17 15:00 23:00 07:00 Intake Total 200 ml 2860 ml Output Total 2000 ml 1600 ml Balance -1800 ml 1260 ml Exam Constitutional: weak. No acute distress. He is cachectic) Head: atraumatic, normocephalic Respiratory: clear to auscultation, normal air movement Cardiovascular: nl pulses, regular rate and rhythm Gastrointestinal: Urostomy, colostomy and ileal conduit) Extremities: normal pulses + PICC line in place , on TPN Results Result Diagram: 05/03/178 05/03/17427 Results 24 hrs Laboratory Tests Test 05/02/17 20:53 05/03/17 01:57 05/03/17 04:28 05/03/17 08:45 Bedside Glucose 137 124 92 White Blood Count 8.5 Red Blood Count 3.01 L Hemoglobin 8.4 L Hematocrit 25.7 L Mean Corpuscular Volume 85.4 Mean Corpuscular Hemoglobin 27.9 L Mean Corpuscular Hemoglobin Concent 32.7 Red Cell Distribution Width 14.6 H Platelet Count 274 Mean Platelet Volume 9.2 Neutrophils % 66.0 Lymphocytes % 22.8 Monocytes % 7.9 Eosinophils % 2.1 Basophils % 0.4 Nucleated Red Blood Cells % 0.0 Neutrophils # 5.6 Lymphocytes # 1.9 Monocytes # 0.7 Eosinophils # 0.2 Basophils # 0.0 Nucleated Red Blood Cells # 0.0 Sodium Level 141 Potassium Level 4.1 Chloride Level 104 Carbon Dioxide Level 27 Anion Gap 14 Blood Urea Nitrogen 52 H Creatinine 2.06 H Glucose Level 83 Calcium Level 9.4 Test 05/03/17 12:36 05/03/17 17:38 Bedside Glucose 138 110 Medications Medications Current Medications Ondansetron HCl (Zofran Inj) 4 mg Q6H PRN IV NAUSEA AND/OR VOMITING Last administered on 05/03/17 18:18; Admin Dose 4 MG; Start 03/30/17 at 03:30 Heparin Sodium (Porcine) (Heparin (5000 Units/0.5 ml)) 5,000 unit DAILY SC Last administered on 05/03/17 08:58; Admin Dose 5,000 UNIT; Start 03/30/17 at 09:00 Oxycodone/ Acetaminophen 1 tab 1 tab Q4H PRN PO PAIN Last administered on 05/03 13:09; Admin Dose 1 TAB; Start 03/30/17 at 06:00 Total Parenteral Nutrition (Tpn) 1,000 ml @ 70 mls/hr [id number] IV Last administered on 05/03/17 05:02; Admin Dose 70 MLS/HR; Start 03/31/17 at 15:00 Insulin Glargine (Lantus) 10 unit HS SC Last administered on 05/02/17 20:55; Admin Dose 10 UNIT; Start 04/01/17 at 21:00 Miscellaneous Information 1 ea NOTE XX ; Start 03/31/17 at 21:00 Glucose (Glutose) 15 gm Q15M PRN PO DECREASED GLUCOSE; Start 03/31/17 at 21:00 Glucose (Glutose) 22.5 gm Q15M PRN PO DECREASED GLUCOSE; Start 03/31/17 at 21: 00 Dextrose (D50w Syringe) 25 ml Q15M PRN IV DECREASED GLUCOSE; Start 03/31/17 at 21:00 Dextrose (D50w Syringe) 50 ml Q15M PRN IV DECREASED GLUCOSE; Start 03/31/17 at 21:00 Glucagon (Glucagen) 1 mg Q15M PRN IM DECREASED GLUCOSE; Start 03/31/17 at 21: 00 Glucose (Glutose) 15 gm Q15M PRN BUCCAL DECREASED GLUCOSE; Start 03/31/17 at 21:00 Diagnostic Test (Pha) (Accu-Chek) 1 ea 02 XX Last administered on 04/22/17 02 :00; Admin Dose 1 EA; Start 04/06/17 at 02:00 Ascorbic Acid (Vitamin C) 500 mg DAILY PO Last administered on 05/03/17 08:48 ; Admin Dose 500 MG; Start 04/11/17 at 09:00 Zinc Sulfate (Zinc Sulfate) 220 mg DAILY PO Last administered on 05/03/17 08: 48; Admin Dose 220 MG; Start 04/11/17 at 09:00 Fentanyl (Duragesic 25 Mcg/Hr Patch) 1 patch Q3D TRANSDERM Last administered on 05/02/17 17:55; Admin Dose 1 PATCH; Start 04/11/17 at 17:00 Loperamide HCl (Imodium Cap) 2 mg TID PO Last administered on 05/03/17 12:34 ; Admin Dose 2 MG; Start 04/15/17 at 13:00 Nystatin (Nystatin Powder) 1 applic PRN TOP Last administered on 04/25/17 18: 06; Admin Dose 1 APPLIC; Start 04/16/17 at 16:30 Acetaminophen (Tylenol Tab) 650 mg Q6H PRN PO PAIN AND OR ELEVATED TEMP Last administered on 04/20/17 22:42; Admin Dose 650 MG; Start 04/20/17 at 22:00 Lactobacillus Acidophilus 1 each 1 each BID PO Last administered on 05/03/17 08:48; Admin Dose 1 EACH; Start 04/21/17 at 21:00 Metronidazole 100 ml @ 100 mls/hr Q8 IVPB Last administered on 05/03/17 13: 08; Admin Dose 100 MLS/HR; Start 05/02/17 at 14:00 Trimethoprim/ Sulfamethoxazole/ Dextrose (Bactrim/D5W) 260 ml @ 173.333 mls/hr Q8 IVPB Last administered on 05/03/17t 15:02; Admin Dose 173.333 MLS/HR; Start 05/02/17 at 14:00 MARGOT WOMACK MD May 03, 2017 20:35
[2017-05-03] MEDS: INSULIN GLARGINE [LANtus] 3 ML PEN SC SCH (20:38)
[2017-05-04] MEDS: ACCUCHECK AT 2AM (Patients on SS coverage) XX SCH (02:00)
[2017-05-04 02:10] VITALS: BP 108/66; RESP 18
[2017-05-04] MEDS: metroNIDAZOLE 500 MG/NS (PMX) 100 ML IVPB SCH ×3 (05:06→20:01)
[2017-05-04 05:59] LABS: CALCIUM 9.2 mg/dl (8.4-10.2); CREATININE 2.37 mg/dl (0.61-1.24); POTASSIUM 4.2 mmol/L (3.5-5.1)
[2017-05-04 06:00] LABS: MAGNESIUM 1.9 mg/dl (1.7-2.5); PHOSPHORUS 4.1 mg/dl (2.5-4.9)
[2017-05-04] MEDS: TRIMETHOPRIM/SULFAMETHOXAZOLE 10 ML in DEXTROSE 5% 250 ML IVPB SCH (06:37)
--- NOTE | 2017-05-04 07:34 | PN ---
Date/Time of Note Date/Time of Note DATE: 05/04/17 TIME: 07:33 Assessment/Plan VTE Prophylaxis VTE Prophylaxis Intervention: heparin Lines/Catheters IV Catheter Type (from [facility]): PICC Line Central line still needed: Yes Urinary Cath still in place: No Assessment/Plan Chief Complaint/Hosp Course 1. Complicated urinary tract infection with polymicrobial's including E. coli ESBL. Status post antimicrobials as per infectious diseases. Repeat urine cultures also showing E. coli ESBL and Stenotrophomonas maltophilia. Therefore, the patient was restarted on antibiotics. 2. Acute nonoliguric kidney injury. Etiology unclear. The patient being followed by nephrology. Use nephrotoxic drugs with caution. 3. Bladder cancer. Status post radical cystoprostatectomy and creation of ileal conduit with colonic diversion for fistula formation. S./P Urology evaluation who agreed with the current management. 4. Status post perforated viscus repair complicated by intra-abdominal abscess requiring CT-guided drainage on previous admission. Being followed by surgery. 5. Severe protein calorie malnutrition. Patient on TPN. The patient on a mechanical soft diet. 6. Normocytic anemia. Etiology unclear. Probably anemia of chronic disease. 7. Fluids, electrolytes, and nutrition. TPN. Mechanical soft diet. 8. DVT prophylaxis. Subcutaneous heparin. 9. Plan. Await discharge after home health is arranged. Case discussed with Dr. Mireles. Problems: Subjective 24 Hr Interval Summary Free Text/Dictation The patient remains afebrile. Exam/Review of Systems Vital Signs Vitals Vital Signs Date Time Temp Pulse Resp B/P Pulse Ox O2 Delivery O2 Flow Rate FiO2 05/04/17 02:10 98.4 66 18 108/66 96 05/01/17 20:21 Room Air Intake and Output 05/03/17 05/03/17 05/04/17 15:00 23:00 07:00 Intake Total 360 ml 2260 ml 1510 ml Output Total 3800 ml 1000 ml Balance 360 ml -1540 ml 510 ml Exam General:, Thin, frail looking 66 year-old male lying in bed in no apparent distress. HEENT: Normocephalic, atraumatic. Eyes: Anicteric sclerae, conjunctivae clear. ENT: Nasal septum midline, oral mucosa moist. Neck supple, no JVD noticed. Respiratory: Bilaterally diminished breath sounds. No use of accessory muscles of respiration. No adventitious breath sounds. Cardiovascular: S1, S2 heard. No murmurs or gallops. Abdomen: Soft, nontender, and nondistended. Ileostomy bud pink. Colostomy pink bud moist. Ileal conduit. Genitourinary: Deferred. Extremities: No cyanosis, no clubbing, no edema. Peripheral pulses palpable. Neurologic: Cranial nerves II through XII grossly intact. The patient is awake, alert, and oriented. Skin: Normal skin turgor. No skin rashes. Results Result Diagram: 05/03/17 0428 05/04/17 0501 Results 24 hrs Laboratory Tests Test 05/03/17 08:45 05/03/17 12:36 05/03/17 17:38 05/03/17 20:33 Bedside Glucose 92 138 110 124 Test 05/04/17 02:12 05/04/17 05:01 Bedside Glucose 116 Sodium Level 138 Potassium Level 4.2 Chloride Level 100 Carbon Dioxide Level 26 Anion Gap 16 Blood Urea Nitrogen 48 H Creatinine 2.37 H Glucose Level 109 Calcium Level 9.2 Phosphorus Level 4.1 Magnesium Level 1.9 Medications Medications Current Medications Ondansetron HCl (Zofran Inj) 4 mg Q6H PRN IV NAUSEA AND/OR VOMITING Last administered on 05/03/17 18:18; Admin Dose 4 MG; Start 03/30/17 at 03:30 Heparin Sodium (Porcine) (Heparin (5000 Units/0.5 ml)) 5,000 unit DAILY SC Last administered on 05/03/17 08:58; Admin Dose 5,000 UNIT; Start 03/30/17 at 09:00 Oxycodone/ Acetaminophen 1 tab 1 tab Q4H PRN PO PAIN Last administered on 05/03 20:34; Admin Dose 1 TAB; Start 03/30/17 at 06:00 Total Parenteral Nutrition (Tpn) 1,000 ml @ 70 mls/hr [id number] IV Last administered on 05/03/17 21:09; Admin Dose 70 MLS/HR; Start 03/31/17 at 15:00 Insulin Glargine (Lantus) 10 unit HS SC Last administered on 05/03/17 20:38; Admin Dose 10 UNIT; Start 04/01/17 at 21:00 Miscellaneous Information 1 ea NOTE XX ; Start 03/31/17 at 21:00 Glucose (Glutose) 15 gm Q15M PRN PO DECREASED GLUCOSE; Start 03/31/17 at 21:00 Glucose (Glutose) 22.5 gm Q15M PRN PO DECREASED GLUCOSE; Start 03/31/17 at 21: 00 Dextrose (D50w Syringe) 25 ml Q15M PRN IV DECREASED GLUCOSE; Start 03/31/17 at 21:00 Dextrose (D50w Syringe) 50 ml Q15M PRN IV DECREASED GLUCOSE; Start 03/31/17 at 21:00 Glucagon (Glucagen) 1 mg Q15M PRN IM DECREASED GLUCOSE; Start 03/31/17 at 21: 00 Glucose (Glutose) 15 gm Q15M PRN BUCCAL DECREASED GLUCOSE; Start 03/31/17 at 21:00 Diagnostic Test (Pha) (Accu-Chek) 1 ea 02 XX Last administered on 04/22/17 02 :00; Admin Dose 1 EA; Start 04/06/17 at 02:00 Ascorbic Acid (Vitamin C) 500 mg DAILY PO Last administered on 05/03/17 08:48 ; Admin Dose 500 MG; Start 04/11/17 at 09:00 Zinc Sulfate (Zinc Sulfate) 220 mg DAILY PO Last administered on 05/03/17 08: 48; Admin Dose 220 MG; Start 04/11/17 at 09:00 Fentanyl (Duragesic 25 Mcg/Hr Patch) 1 patch Q3D TRANSDERM Last administered on 05/02/17 17:55; Admin Dose 1 PATCH; Start 04/11/17 at 17:00 Loperamide HCl (Imodium Cap) 2 mg TID PO Last administered on 05/03/17 20:34 ; Admin Dose 2 MG; Start 04/15/17 at 13:00 Nystatin (Nystatin Powder) 1 applic PRN TOP Last administered on 04/25/17 18: 06; Admin Dose 1 APPLIC; Start 04/16/17 at 16:30 Acetaminophen (Tylenol Tab) 650 mg Q6H PRN PO PAIN AND OR ELEVATED TEMP Last administered on 04/20/17 22:42; Admin Dose 650 MG; Start 04/20/17 at 22:00 Lactobacillus Acidophilus 1 each 1 each BID PO Last administered on 05/03/17 20:34; Admin Dose 1 EACH; Start 04/21/17 at 21:00 Metronidazole 100 ml @ 100 mls/hr Q8 IVPB Last administered on 05/04/17 05: 06; Admin Dose 100 MLS/HR; Start 05/02/17 at 14:00 Trimethoprim/ Sulfamethoxazole/ Dextrose (Bactrim/D5W) 260 ml @ 173.333 mls/hr Q8 IVPB Last administered on 05/04/17 06:37; Admin Dose 173.333 MLS/HR; Start 05/02/17 at 14:00 BRENDA PETTIT NP May 04, 2017 07:34 BRENDA PETTIT NP May 04, 2017 07:34
[2017-05-04] MEDS: Insulin NOVOLOG SS MODERATE Algorithm (SS with meals and bedtime) SC SCH ×4 (07:50→19:59)
[2017-05-04 08:17] VITALS: BP 109/59; RESP 18
--- NOTE | 2017-05-04 09:35 | PN ---
Date/Time of Note Date/Time of Note DATE: 05/04/17 TIME: 09:23 Assessment/Plan Lines/Catheters IV Catheter Type (from Nrs): PICC Line Tomas in Place (from Nrs): No Assessment/Plan Chief Complaint/Hosp Course 1. Multiple ostomies and ileal conduit: all ostomies pink and moist; s/p multiple Perforated viscous w small bowel proximal looped ostomy (minimum 6 month wait prior to considering attempting abdominal re-exploration) -continue ostomy care -continue oral feed and supplements -continue local abdominal wound care-w vac -oral diet as tolerated with protein shakes and probiotics- refusing supplements -oob/ambulate -urology input noted -TPN 2. UTI (polymicrobial, complicated)pink with mucous urine, cultures noted -abx/antimicrobials per sensitivity -frequent bladder emptying/cath care -urology 3. Malnutrition: tolerating solid diet;refusing supplements -continue tpn; follow up on nutrition recs-weight up -vitamins, probiotics, and nutritional supplements- started nutrifiber -encourage supplements -hopefully wean off tpn -started on antimotility agent; oral narcotics 4. MANA: -judicious fluids -limit nephrotoxic meds -per renal 5. Bladder cancer: s/p chemo/radiation, s/p cystoprostatectomy with urinary diversion -per oncology/urology 6. Normocytic hypochromic anemia: no overt bleed noted -monitor -transfuse as needed -further workup per medical team 7. Pelvic pain:on fentanyl patch; improved -pain management Thank you. Patient seen and examined in collaboration with Dr. Bang Ross Problems: Subjective 24 Hr Interval Summary Feels ok. Good appetite but refusing some supplements. Improved pelvic pain. Lower abdominal wound healed. Continues on tpn. No fevers, chills, sob, congested cough, cp, palpitations, craig, dizziness, n/v/d/dysuria. Intermittent rectal discharge Exam/Review of Systems Vital Signs Vitals Vital Signs Date Time Temp Pulse Resp B/P Pulse Ox O2 Delivery O2 Flow Rate FiO2 05/04/17 08:17 98.7 72 18 109/59 98 05/01/17 20:21 Room Air Intake and Output 05/03/17 05/03/17 05/04/17 15:00 23:00 07:00 Intake Total 360 ml 2260 ml 1510 ml Output Total 3800 ml 1000 ml Balance 360 ml -1540 ml 510 ml Exam Free Text/Dictation Constitutional: alert, oriented Psych: nl mood Head: atraumatic, normocephalic Eyes: nl lids, nl sclera ENMT: mucosa pink and moist, nl nasal mucosa & septum Neck: non-tender, supple Respiratory: normal air movement Cardiovascular: nl pulses, regular rate and rhythm Gastrointestinal: non-tender, other (ileostomy, colostomy,ileal conduit -all ostomies pink and moist), soft, Genitourinary - Male: nl penis, nl scrotum; ileal conduit with clear urine with mucous threads Musculoskeletal: nl extremities to inspection, nl gait and stance Extremities: normal pulses, No edema Neurological: nl mental status, nl speech Skin: nl turgor, rash or lesions; lower abdomen wound healed Results Result Diagram: 05/03/17 0428 05/04/17 0501 IFTIKHAR ROBERTSON NP May 04, 2017 09:34
[2017-05-04] MEDS: ZINC SULFATE 220 MG CAP PO SCH (11:35)
[2017-05-04] MEDS: ASCORBIC ACID 500 MG TAB PO SCH (11:35)
[2017-05-04] MEDS: L ACIDOPHIL/B LACTIS/B LONGUM CAPSULE PO SCH ×2 (11:35→19:57)
[2017-05-04] MEDS: LOPERAMIDE 2 MG CAP PO SCH ×3 (11:35→19:58)
[2017-05-04] MEDS: ONDANSETRON 4 MG INJ IV PRN ×2 (11:35→19:57)
[2017-05-04] MEDS: OXYCODONE/ACETAMINOPHEN (5/325) TAB PO PRN ×2 (11:35→19:57)
[2017-05-04] MEDS: TPN 1,000 ML IV SCH (11:36)
[2017-05-04] MEDS: HEPARIN 5,000 UNIT/0.5 ML VIAL SC SCH (11:46)
[2017-05-04 14:00] VITALS: BP 100/60; RESP 17
--- NOTE | 2017-05-04 14:22 | CONS ---
Date/Time of Note Date/Time of Note DATE: 05/04/17 TIME: 14:21 Assessment/Plan Assessment/Plan Chief Complaint/Hosp Course SUBJECTIVE: No acute changes overnight per report. Alert, feels good, denies pain, no fevers PHYSICAL EXAMINATION: GENERAL: This is a cachectic, chronically ill-appearing, elderly, [place] man who is awake, in no distress. HEENT: Head atraumatic, normocephalic. Sclerae anicteric. Buccal mucosa dry. NECK: Supple. CHEST: Rise symmetrical. Breath sounds clear. HEART: S1, S2. ABDOMEN: Soft. Bowel tones present. ASSESSMENT: 1. S/p recurrent urinary tract infection. 2. History of bladder and prostate cancer, status post chemoradiation, cystoprostatectomy with urinary diversion and ileostomy conduit. 3. History of perforated viscus repair. 4. Acute renal failure. 5. Cachexia. 6. History of obstructive uropathy, status post bilateral JJ stent placement. PLAN: The patient remains stable off antibiotics. Pending dc plan DW staff Problems: Consultation Date/Type/Reason Admit Date/Time Mar 30, 2017 at 02:24 Initial Consult Date 04/01/17 Type of Consultation: id Referring Provider: ALLISON HAYWARD Exam/Review of Systems Vital Signs Vitals Vital Signs Date Time Temp Pulse Resp B/P Pulse Ox O2 Delivery O2 Flow Rate FiO2 05/04/17 14:00 99.1 65 17 100/60 98 05/01/17 20:21 Room Air Intake and Output 05/03/17 05/03/17 05/04/17 15:00 23:00 07:00 Intake Total 360 ml 2260 ml 1510 ml Output Total 3800 ml 1000 ml Balance 360 ml -1540 ml 510 ml Results Result Diagram: 05/03/17 0428 05/04/17 0501 Results 24 hrs Laboratory Tests Test 05/03/17 17:38 05/03/17 20:33 05/04/17 02:12 05/04/17 05:01 Bedside Glucose 110 124 116 Sodium Level 138 Potassium Level 4.2 Chloride Level 100 Carbon Dioxide Level 26 Anion Gap 16 Blood Urea Nitrogen 48 H Creatinine 2.37 H Glucose Level 109 Calcium Level 9.2 Phosphorus Level 4.1 Magnesium Level 1.9 Test 05/04/17 09:12 05/04/17 12:21 Bedside Glucose 114 129 Medications Medications Current Medications Ondansetron HCl (Zofran Inj) 4 mg Q6H PRN IV NAUSEA AND/OR VOMITING Last administered on 05/04/17 11:35; Admin Dose 4 MG; Start 03/30/17 at 03:30 Heparin Sodium (Porcine) (Heparin (5000 Units/0.5 ml)) 5,000 unit DAILY SC Last administered on 05/04/17 11:46; Admin Dose 5,000 UNIT; Start 03/30/17 at 09:00 Oxycodone/ Acetaminophen 1 tab 1 tab Q4H PRN PO PAIN Last administered on 05/04 11:35; Admin Dose 1 TAB; Start 03/30/17 at 06:00 Total Parenteral Nutrition (Tpn) 1,000 ml @ 70 mls/hr [id number] IV Last administered on 05/04/17 11:36; Admin Dose 70 MLS/HR; Start 03/31/17 at 15:00 Insulin Glargine (Lantus) 10 unit HS SC Last administered on 05/03/17 20:38; Admin Dose 10 UNIT; Start 04/01/17 at 21:00 Miscellaneous Information 1 ea NOTE XX ; Start 03/31/17 at 21:00 Glucose (Glutose) 15 gm Q15M PRN PO DECREASED GLUCOSE; Start 03/31/17 at 21:00 Glucose (Glutose) 22.5 gm Q15M PRN PO DECREASED GLUCOSE; Start 03/31/17 at 21: 00 Dextrose (D50w Syringe) 25 ml Q15M PRN IV DECREASED GLUCOSE; Start 03/31/17 at 21:00 Dextrose (D50w Syringe) 50 ml Q15M PRN IV DECREASED GLUCOSE; Start 03/31/17 at 21:00 Glucagon (Glucagen) 1 mg Q15M PRN IM DECREASED GLUCOSE; Start 03/31/17 at 21: 00 Glucose (Glutose) 15 gm Q15M PRN BUCCAL DECREASED GLUCOSE; Start 03/31/17 at 21:00 Diagnostic Test (Pha) (Accu-Chek) 1 ea 02 XX Last administered on 04/22/17 02 :00; Admin Dose 1 EA; Start 04/06/17 at 02:00 Ascorbic Acid (Vitamin C) 500 mg DAILY PO Last administered on 05/04/17 11:35 ; Admin Dose 500 MG; Start 04/11/17 at 09:00 Zinc Sulfate (Zinc Sulfate) 220 mg DAILY PO Last administered on 05/04/17 11: 35; Admin Dose 220 MG; Start 04/11/17 at 09:00 Fentanyl (Duragesic 25 Mcg/Hr Patch) 1 patch Q3D TRANSDERM Last administered on 05/02/17 17:55; Admin Dose 1 PATCH; Start 04/11/17 at 17:00 Loperamide HCl (Imodium Cap) 2 mg TID PO Last administered on 05/04/17 11:35 ; Admin Dose 2 MG; Start 04/15/17 at 13:00 Nystatin (Nystatin Powder) 1 applic PRN TOP Last administered on 04/25/17 18: 06; Admin Dose 1 APPLIC; Start 04/16/17 at 16:30 Acetaminophen (Tylenol Tab) 650 mg Q6H PRN PO PAIN AND OR ELEVATED TEMP Last administered on 04/20/17 22:42; Admin Dose 650 MG; Start 04/20/17 at 22:00 Lactobacillus Acidophilus 1 each 1 each BID PO Last administered on 05/04/17 11:35; Admin Dose 1 EACH; Start 04/21/17 at 21:00 Metronidazole 100 ml @ 100 mls/hr Q8 IVPB Last administered on 05/04/17 05: 06; Admin Dose 100 MLS/HR; Start 05/02/17 at 14:00 Trimethoprim/ Sulfamethoxazole/ Dextrose (Bactrim/D5W) 260 ml @ 173.333 mls/hr Q12 IVPB ; Start 05/04/17 at 21:00 KING MARQUES NP May 04, 2017 14:22
--- NOTE | 2017-05-04 14:59 | PDOCDIS ---
Discharge Instructions DIAGNOSIS Discharge Diagnosis Complicated UTI. CONDITION Patient Condition: Stable HOME CARE INSTRUCTIONS: Special Diet: Soft diet/TPN FOLLOW UP/APPOINTMENTS Follow-up Plan 1. Ilan Bourgeois MD Specialty Urology Office Address [address] [place] [address] Office 2. Bang Ross MD Specialty General Surgery Comments Office Address [id number] [address] Office OTHER ORDERS: Other Orders: 1. Take medications as per prescription. 2. Taking soft diet as tolerated. 3. Follow-up with urology (Dr. Bourgeois) and general surgery (Dr. Ross) in the next 2 weeks. BRENDA PETTIT NP May 04, 2017 14:59
[2017-05-04] MEDS ORDERED: ZINC220C11 PO (15:05)
[2017-05-04] MEDS ORDERED: L.AC460C PO (15:07)
[2017-05-04] MEDS ORDERED: LANT3I SC (15:07)
[2017-05-04] MEDS ORDERED: IMO2 PO (15:07)
[2017-05-04] MEDS ORDERED: ASC500 PO (15:10)
--- NOTE | 2017-05-04 16:21 | CONS ---
Date/Time of Note Date/Time of Note DATE: 05/04/17 TIME: 16:17 Assessment/Plan Assessment/Plan Additional Assessment/Plan 1. acute kidney injury Non oliguric .2/2 ATN+ prerenal azotemia 2. H/o ESBL UTI 3.history of bladder cancer s/p TURBT, chemotherapy/radiation, urethral damage, chemo/radiation induced urinary and fecal incontinence. He underwent cystoprostatectomy with urinary diversion, ileal conduit, colonic diversion for fistula on last admission 4. Anemia of Chronic disease 5. Severe protein calorie malnutrition Plan: - IV ertapenem 1 gram IV daily - on TPN - BUN/Cr bumped to 48/2.37- pt is on IV bactrim, which has been changed to Q 12 hr- will talk with ID to see if there is any other alternative abx possible -will continue to follow up Consultation Date/Type/Reason Admit Date/Time Mar 30, 2017 at 02:24 Initial Consult Date 03/30/17 Type of Consultation: NEPHROLOGY Referring Provider: ALLISON HAYWARD 24 HR Interval Summary Free Text/Dictation pt is started on IV bactrim Q 8 hr, BUN/Cr rising to 2.3 today, c/o abd pain, constipation Exam/Review of Systems Vital Signs Vitals Vital Signs Date Time Temp Pulse Resp B/P Pulse Ox O2 Delivery O2 Flow Rate FiO2 05/04/17 14:00 99.1 65 17 100/60 98 05/01/17 20:21 Room Air Intake and Output 05/03/17 05/03/17 05/04/17 15:00 23:00 07:00 Intake Total 360 ml 2260 ml 1510 ml Output Total 3800 ml 1000 ml Balance 360 ml -1540 ml 510 ml Exam Constitutional: weak. No acute distress. He is cachectic) Head: atraumatic, normocephalic Respiratory: clear to auscultation, normal air movement Cardiovascular: nl pulses, regular rate and rhythm Gastrointestinal: Urostomy, colostomy and ileal conduit) Extremities: normal pulses + PICC line in place , on TPN Results Result Diagram: 05/03/17 0428 05/04/17 0501 Results 24 hrs Laboratory Tests Test 05/03/17 17:38 05/03/17 20:33 05/04/17 02:12 05/04/17 05:01 Bedside Glucose 110 124 116 Sodium Level 138 Potassium Level 4.2 Chloride Level 100 Carbon Dioxide Level 26 Anion Gap 16 Blood Urea Nitrogen 48 H Creatinine 2.37 H Glucose Level 109 Calcium Level 9.2 Phosphorus Level 4.1 Magnesium Level 1.9 Test 05/04/17 09:12 05/04/17 12:21 Bedside Glucose 114 129 Medications Medications Current Medications Ondansetron HCl (Zofran Inj) 4 mg Q6H PRN IV NAUSEA AND/OR VOMITING Last administered on 05/04/17 11:35; Admin Dose 4 MG; Start 03/30/17 at 03:30 Heparin Sodium (Porcine) (Heparin (5000 Units/0.5 ml)) 5,000 unit DAILY SC Last administered on 05/04/17 11:46; Admin Dose 5,000 UNIT; Start 03/30/17 at 09:00 Oxycodone/ Acetaminophen 1 tab 1 tab Q4H PRN PO PAIN Last administered on 05/04 11:35; Admin Dose 1 TAB; Start 03/30/17 at 06:00 Total Parenteral Nutrition (Tpn) 1,000 ml @ 70 mls/hr [id number] IV Last administered on 05/04/17 11:36; Admin Dose 70 MLS/HR; Start 03/31/17 at 15:00 Insulin Glargine (Lantus) 10 unit HS SC Last administered on 05/03/17 20:38; Admin Dose 10 UNIT; Start 04/01/17 at 21:00 Miscellaneous Information 1 ea NOTE XX ; Start 03/31/17 at 21:00 Glucose (Glutose) 15 gm Q15M PRN PO DECREASED GLUCOSE; Start 03/31/17 at 21:00 Glucose (Glutose) 22.5 gm Q15M PRN PO DECREASED GLUCOSE; Start 03/31/17 at 21: 00 Dextrose (D50w Syringe) 25 ml Q15M PRN IV DECREASED GLUCOSE; Start 03/31/17 at 21:00 Dextrose (D50w Syringe) 50 ml Q15M PRN IV DECREASED GLUCOSE; Start 03/31/17 at 21:00 Glucagon (Glucagen) 1 mg Q15M PRN IM DECREASED GLUCOSE; Start 03/31/17 at 21: 00 Glucose (Glutose) 15 gm Q15M PRN BUCCAL DECREASED GLUCOSE; Start 03/31/17 at 21:00 Diagnostic Test (Pha) (Accu-Chek) 1 ea 02 XX Last administered on 04/22/17 02 :00; Admin Dose 1 EA; Start 04/06/17 at 02:00 Ascorbic Acid (Vitamin C) 500 mg DAILY PO Last administered on 05/04/17 11:35 ; Admin Dose 500 MG; Start 04/11/17 at 09:00 Zinc Sulfate (Zinc Sulfate) 220 mg DAILY PO Last administered on 05/04/17 11: 35; Admin Dose 220 MG; Start 04/11/17 at 09:00 Fentanyl (Duragesic 25 Mcg/Hr Patch) 1 patch Q3D TRANSDERM Last administered on 05/02/17 17:55; Admin Dose 1 PATCH; Start 04/11/17 at 17:00 Loperamide HCl (Imodium Cap) 2 mg TID PO Last administered on 05/04/17 11:35 ; Admin Dose 2 MG; Start 04/15/17 at 13:00 Nystatin (Nystatin Powder) 1 applic PRN TOP Last administered on 04/25/17 18: 06; Admin Dose 1 APPLIC; Start 04/16/17 at 16:30 Acetaminophen (Tylenol Tab) 650 mg Q6H PRN PO PAIN AND OR ELEVATED TEMP Last administered on 04/20/17 22:42; Admin Dose 650 MG; Start 04/20/17 at 22:00 Lactobacillus Acidophilus 1 each 1 each BID PO Last administered on 05/04/17 11:35; Admin Dose 1 EACH; Start 04/21/17 at 21:00 Metronidazole 100 ml @ 100 mls/hr Q8 IVPB Last administered on 05/04/17 05: 06; Admin Dose 100 MLS/HR; Start 05/02/17 at 14:00 Trimethoprim/ Sulfamethoxazole/ Dextrose (Bactrim/D5W) 260 ml @ 173.333 mls/hr Q12 IVPB ; Start 05/04/17 at 21:00 MARGOT WOMACK MD May 04, 2017 16:21
[2017-05-04] MEDS: INSULIN GLARGINE [LANtus] 3 ML PEN SC SCH (20:01)
[2017-05-04] MEDS ORDERED: TRIMETHOPRIM/SULFAMETHOXAZOLE 10 ML in DEXTROSE 5% 250 ML IVPB SCH (21:00)
[2017-05-05] MEDS: TPN 1,000 ML IV SCH ×3 (01:00→21:25)
[2017-05-05] MEDS: ACCUCHECK AT 2AM (Patients on SS coverage) XX SCH (02:00)
[2017-05-05 02:18] VITALS: BP 94/54; RESP 18
[2017-05-05] MEDS: metroNIDAZOLE 500 MG/NS (PMX) 100 ML IVPB SCH (04:42)
[2017-05-05] MEDS: OXYCODONE/ACETAMINOPHEN (5/325) TAB PO PRN ×3 (04:50→21:14)
[2017-05-05] MEDS: ONDANSETRON 4 MG INJ IV PRN ×2 (04:50→11:33)
[2017-05-05 06:13] LABS: MAGNESIUM 1.9 mg/dl (1.7-2.5); PHOSPHORUS 4.2 mg/dl (2.5-4.9)
[2017-05-05 06:39] LABS: CALCIUM 9.4 mg/dl (8.4-10.2); CREATININE 2.37 mg/dl (0.61-1.24); POTASSIUM 4.2 mmol/L (3.5-5.1)
[2017-05-05] MEDS: Insulin NOVOLOG SS MODERATE Algorithm (SS with meals and bedtime) SC SCH ×4 (07:50→21:00)
[2017-05-05 08:10] VITALS: BP 103/59; RESP 20
[2017-05-05] MEDS: L ACIDOPHIL/B LACTIS/B LONGUM CAPSULE PO SCH ×2 (08:46→21:13)
[2017-05-05] MEDS: ZINC SULFATE 220 MG CAP PO SCH (08:46)
[2017-05-05] MEDS: ASCORBIC ACID 500 MG TAB PO SCH (08:46)
[2017-05-05] MEDS: LOPERAMIDE 2 MG CAP PO SCH ×3 (08:46→21:13)
[2017-05-05] MEDS: HEPARIN 5,000 UNIT/0.5 ML VIAL SC SCH (08:53)
--- NOTE | 2017-05-05 08:58 | CONS ---
Date/Time of Note Date/Time of Note DATE: 05/05/17 TIME: 08:58 Assessment/Plan Assessment/Plan Additional Assessment/Plan 1. acute kidney injury Non oliguric .2/2 ATN+ prerenal azotemia 2. H/o ESBL UTI 3.history of bladder cancer s/p TURBT, chemotherapy/radiation, urethral damage, chemo/radiation induced urinary and fecal incontinence. He underwent cystoprostatectomy with urinary diversion, ileal conduit, colonic diversion for fistula on last admission 4. Anemia of Chronic disease 5. 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 -will continue to follow up Consultation Date/Type/Reason Admit Date/Time Mar 30, 2017 at 02:24 Initial Consult Date 03/30/17 Type of Consultation: NEPHROLOGY Referring Provider: ALLISON HAYWARD 24 HR Interval Summary Free Text/Dictation c/o rectal pain, BUN/cr remains high - pt is c/o Rectal pain Exam/Review of Systems Vital Signs Vitals Vital Signs Date Time Temp Pulse Resp B/P Pulse Ox O2 Delivery O2 Flow Rate FiO2 05/05/17 08:10 98.3 62 20 103/59 96 05/01/17 20:21 Room Air Intake and Output 05/04/17 05/04/17 05/05/17 14:59 22:59 06:59 Intake Total 700 ml 1150 ml 1680 ml Output Total 2200 ml 500 ml Balance 700 ml -1050 ml 1180 ml Exam Constitutional: weak. No acute distress. He is cachectic) Head: atraumatic, normocephalic Respiratory: clear to auscultation, normal air movement Cardiovascular: nl pulses, regular rate and rhythm Gastrointestinal: Urostomy, colostomy and ileal conduit) Extremities: normal pulses + PICC line in place , on TPN Results Result Diagram: 05/03/17 0428 05/05/17 0500 Results 24 hrs Laboratory Tests Test 05/04/17 09:12 05/04/17 12:21 05/04/17 19:59 05/05/17 02:24 Bedside Glucose 114 129 132 96 Test 05/05/17 05:00 05/05/17 08:44 Sodium Level 137 Potassium Level 4.2 Chloride Level 99 Carbon Dioxide Level 26 Anion Gap 16 Blood Urea Nitrogen 48 H Creatinine 2.37 H Glucose Level 110 Calcium Level 9.4 Phosphorus Level 4.2 Magnesium Level 1.9 Bedside Glucose 119 Medications Medications Current Medications Ondansetron HCl (Zofran Inj) 4 mg Q6H PRN IV NAUSEA AND/OR VOMITING Last administered on 05/05/17 04:50; Admin Dose 4 MG; Start 03/30/17 at 03:30 Heparin Sodium (Porcine) (Heparin (5000 Units/0.5 ml)) 5,000 unit DAILY SC Last administered on 05/05/17 08:53; Admin Dose 5,000 UNIT; Start 03/30/17 at 09:00 Oxycodone/ Acetaminophen 1 tab 1 tab Q4H PRN PO PAIN Last administered on 05/05 04:50; Admin Dose 1 TAB; Start 03/30/17 at 06:00 Total Parenteral Nutrition (Tpn) 1,000 ml @ 70 mls/hr [id number] IV Last administered on 05/05/17 04:41; Admin Dose 70 MLS/HR; Start 03/31/17 at 15:00 Insulin Glargine (Lantus) 10 unit HS SC Last administered on 05/04/17 20:01; Admin Dose 10 UNIT; Start 04/01/17 at 21:00 Miscellaneous Information 1 ea NOTE XX ; Start 03/31/17 at 21:00 Glucose (Glutose) 15 gm Q15M PRN PO DECREASED GLUCOSE; Start 03/31/17 at 21:00 Glucose (Glutose) 22.5 gm Q15M PRN PO DECREASED GLUCOSE; Start 03/31/17 at 21: 00 Dextrose (D50w Syringe) 25 ml Q15M PRN IV DECREASED GLUCOSE; Start 03/31/17 at 21:00 Dextrose (D50w Syringe) 50 ml Q15M PRN IV DECREASED GLUCOSE; Start 03/31/17 at 21:00 Glucagon (Glucagen) 1 mg Q15M PRN IM DECREASED GLUCOSE; Start 03/31/17 at 21: 00 Glucose (Glutose) 15 gm Q15M PRN BUCCAL DECREASED GLUCOSE; Start 03/31/17 at 21:00 Diagnostic Test (Pha) (Accu-Chek) 1 ea 02 XX Last administered on 04/22/17 02 :00; Admin Dose 1 EA; Start 04/06/17 at 02:00 Ascorbic Acid (Vitamin C) 500 mg DAILY PO Last administered on 05/05/17 08:46 ; Admin Dose 500 MG; Start 04/11/17 at 09:00 Zinc Sulfate (Zinc Sulfate) 220 mg DAILY PO Last administered on 05/05/17 08: 46; Admin Dose 220 MG; Start 04/11/17 at 09:00 Fentanyl (Duragesic 25 Mcg/Hr Patch) 1 patch Q3D TRANSDERM Last administered on 05/02/17 17:55; Admin Dose 1 PATCH; Start 04/11/17 at 17:00 Loperamide HCl (Imodium Cap) 2 mg TID PO Last administered on 05/05/17 08:46 ; Admin Dose 2 MG; Start 04/15/17 at 13:00 Nystatin (Nystatin Powder) 1 applic PRN TOP Last administered on 04/25/17 18: 06; Admin Dose 1 APPLIC; Start 04/16/17 at 16:30 Acetaminophen (Tylenol Tab) 650 mg Q6H PRN PO PAIN AND OR ELEVATED TEMP Last administered on 04/20/17 22:42; Admin Dose 650 MG; Start 04/20/17 at 22:00 Lactobacillus Acidophilus 1 each 1 each BID PO Last administered on 05/05/17 08:46; Admin Dose 1 EACH; Start 04/21/17 at 21:00 Metronidazole 100 ml @ 100 mls/hr Q8 IVPB Last administered on 05/05/17 04: 42; Admin Dose 100 MLS/HR; Start 05/02/17 at 14:00 Trimethoprim/ Sulfamethoxazole/ Dextrose (Bactrim/D5W) 260 ml @ 173.333 mls/hr Q12 IVPB Last administered on 05/04/17 22:17; Admin Dose 173.333 MLS/HR; Start 05/04/17 at 21:00 MARGOT WOMACK MD May 05, 2017 08:58
--- NOTE | 2017-05-05 13:21 | PN ---
Date/Time of Note Date/Time of Note DATE: 05/05/17 TIME: 13:15 Assessment/Plan Lines/Catheters IV Catheter Type (from Nrs): PICC Line Tomas in Place (from Nrs): No Assessment/Plan Chief Complaint/Hosp Course 1. Multiple ostomies and ileal conduit: all ostomies pink and moist; s/p multiple Perforated viscous w small bowel proximal looped ostomy (minimum 6 month wait prior to considering attempting abdominal re-exploration) -continue ostomy care -continue oral feed and supplements -oral diet as tolerated, encourage supplements -oob/ambulate -urology input noted -TPN 2. UTI (polymicrobial, complicated)pink with mucous urine, cultures noted; s/p abx -frequent bladder emptying/cath care -urology 3. Malnutrition: tolerating solid diet;refusing supplements -continue tpn; follow up on nutrition recs -vitamins, probiotics, and nutritional supplements- started nutrifiber -encourage supplements -hopefully wean off tpn -started on antimotility agent; oral narcotics 4. MANA: abx dc'd -judicious fluids -limit nephrotoxic meds -per renal 5. Bladder cancer: s/p chemo/radiation, s/p cystoprostatectomy with urinary diversion -per oncology/urology 6. Normocytic hypochromic anemia: no overt bleed noted -monitor -transfuse as needed -further workup per medical team 7. Pelvic pain:on fentanyl patch and po narcotics; improved -pain management Thank you. Patient seen and examined in collaboration with Dr. Bang Ross Problems: Subjective 24 Hr Interval Summary Intermittent pain but minimal-improved with analgesics. Ostomies pink n moist. No fevers, chills, sob, congested cough, cp, palpitations, craig, dizziness, n/v/d/ dysuria. Continues on tpn. Exam/Review of Systems Vital Signs Vitals Vital Signs Date Time Temp Pulse Resp B/P Pulse Ox O2 Delivery O2 Flow Rate FiO2 05/05/17 08:10 98.3 62 20 103/59 96 05/01/17 20:21 Room Air Intake and Output 05/04/17 05/04/17 05/05/17 15:00 23:00 07:00 Intake Total 700 ml 1150 ml 1680 ml Output Total 2200 ml 500 ml Balance 700 ml -1050 ml 1180 ml Exam Free Text/Dictation Constitutional: alert, oriented Psych: nl mood Head: atraumatic, normocephalic Eyes: nl lids, nl sclera ENMT: mucosa pink and moist, nl nasal mucosa & septum Neck: non-tender, supple Respiratory: normal air movement Cardiovascular: nl pulses, regular rate and rhythm Gastrointestinal: non-tender, other (ileostomy, colostomy,ileal conduit -all ostomies pink and moist), soft, Genitourinary - Male: nl penis, nl scrotum; ileal conduit with clear urine with mucous threads Musculoskeletal: nl extremities to inspection, nl gait and stance Extremities: normal pulses, No edema Neurological: nl mental status, nl speech Skin: nl turgor, rash or lesions; lower abdomen wound healed Results Result Diagram: 05/03/17 0428 05/05/17 0500 IFTIKHAR ROBERTSON NP May 05, 2017 13:20
--- NOTE | 2017-05-05 13:59 | CONS ---
Date/Time of Note Date/Time of Note DATE: 05/05/17 TIME: 13:58 Assessment/Plan Assessment/Plan Chief Complaint/Hosp Course SUBJECTIVE: No acute changes overnight per report. Alert, feels good, denies pain, no fevers PHYSICAL EXAMINATION: GENERAL: This is a cachectic, chronically ill-appearing, elderly, Kiswahili man who is awake, in no distress. HEENT: Head atraumatic, normocephalic. Sclerae anicteric. Buccal mucosa dry. NECK: Supple. CHEST: Rise symmetrical. Breath sounds clear. HEART: S1, S2. ABDOMEN: Soft. Bowel tones present. ASSESSMENT: 1. S/p recurrent urinary tract infection. 2. History of bladder and prostate cancer, status post chemoradiation, cystoprostatectomy with urinary diversion and ileostomy conduit. 3. History of perforated viscus repair. 4. Acute renal failure. 5. Cachexia. 6. History of obstructive uropathy, status post bilateral JJ stent placement. PLAN: Clinically unchanged, stable, was on Bactrim and Flagyl with worsening renal f-n, now off abx. Pending dc plan [facility] staff Problems: Consultation Date/Type/Reason Admit Date/Time Mar 30, 2017 at 02:24 Initial Consult Date 04/01/17 Type of Consultation: ID Referring Provider: ALLISON HAYWARD Exam/Review of Systems Vital Signs Vitals Vital Signs Date Time Temp Pulse Resp B/P Pulse Ox O2 Delivery O2 Flow Rate FiO2 05/05/17 08:10 98.3 62 20 103/59 96 05/01/17 20:21 Room Air Intake and Output 05/04/17 05/04/17 05/05/17 15:00 23:00 07:00 Intake Total 700 ml 1150 ml 1680 ml Output Total 2200 ml 500 ml Balance 700 ml -1050 ml 1180 ml Results Result Diagram: 05/03/17 0428 05/05/17 0500 Results 24 hrs Laboratory Tests Test 05/04/17 19:59 05/05/17 02:24 05/05/17 05:00 05/05/17 08:44 Bedside Glucose 132 96 119 Sodium Level 137 Potassium Level 4.2 Chloride Level 99 Carbon Dioxide Level 26 Anion Gap 16 Blood Urea Nitrogen 48 H Creatinine 2.37 H Glucose Level 110 Calcium Level 9.4 Phosphorus Level 4.2 Magnesium Level 1.9 Test 05/05/17 11:36 05/05/17 13:29 Bedside Glucose 157 113 Medications Medications Current Medications Ondansetron HCl (Zofran Inj) 4 mg Q6H PRN IV NAUSEA AND/OR VOMITING Last administered on 05/05/17 11:33; Admin Dose 4 MG; Start 03/30/17 at 03:30 Heparin Sodium (Porcine) (Heparin (5000 Units/0.5 ml)) 5,000 unit DAILY SC Last administered on 05/05/17 08:53; Admin Dose 5,000 UNIT; Start 03/30/17 at 09:00 Oxycodone/ Acetaminophen 1 tab 1 tab Q4H PRN PO PAIN Last administered on 05/05 13:37; Admin Dose 1 TAB; Start 03/30/17 at 06:00 Total Parenteral Nutrition (Tpn) 1,000 ml @ 70 mls/hr [id number] IV Last administered on 05/05/17 04:41; Admin Dose 70 MLS/HR; Start 03/31/17 at 15:00 Insulin Glargine (Lantus) 10 unit HS SC Last administered on 05/04/17 20:01; Admin Dose 10 UNIT; Start 04/01/17 at 21:00 Miscellaneous Information 1 ea NOTE XX ; Start 03/31/17 at 21:00 Glucose (Glutose) 15 gm Q15M PRN PO DECREASED GLUCOSE; Start 03/31/17 at 21:00 Glucose (Glutose) 22.5 gm Q15M PRN PO DECREASED GLUCOSE; Start 03/31/17 at 21: 00 Dextrose (D50w Syringe) 25 ml Q15M PRN IV DECREASED GLUCOSE; Start 03/31/17 at 21:00 Dextrose (D50w Syringe) 50 ml Q15M PRN IV DECREASED GLUCOSE; Start 03/31/17 at 21:00 Glucagon (Glucagen) 1 mg Q15M PRN IM DECREASED GLUCOSE; Start 03/31/17 at 21: 00 Glucose (Glutose) 15 gm Q15M PRN BUCCAL DECREASED GLUCOSE; Start 03/31/17 at 21:00 Diagnostic Test (Pha) (Accu-Chek) 1 ea 02 XX Last administered on 04/22/17 02 :00; Admin Dose 1 EA; Start 04/06/17 at 02:00 Ascorbic Acid (Vitamin C) 500 mg DAILY PO Last administered on 05/05/17 08:46 ; Admin Dose 500 MG; Start 04/11/17 at 09:00 Zinc Sulfate (Zinc Sulfate) 220 mg DAILY PO Last administered on 05/05/17 08: 46; Admin Dose 220 MG; Start 04/11/17 at 09:00 Fentanyl (Duragesic 25 Mcg/Hr Patch) 1 patch Q3D TRANSDERM Last administered on 05/02/17 17:55; Admin Dose 1 PATCH; Start 04/11/17 at 17:00 Loperamide HCl (Imodium Cap) 2 mg TID PO Last administered on 05/05/17 13:36 ; Admin Dose 2 MG; Start 04/15/17 at 13:00 Nystatin (Nystatin Powder) 1 applic PRN TOP Last administered on 04/25/17 18: 06; Admin Dose 1 APPLIC; Start 04/16/17 at 16:30 Acetaminophen (Tylenol Tab) 650 mg Q6H PRN PO PAIN AND OR ELEVATED TEMP Last administered on 04/20/17 22:42; Admin Dose 650 MG; Start 04/20/17 at 22:00 Lactobacillus Acidophilus (Florajen3 Capsule) 1 each BID PO Last administered on 05/05/17 08:46; Admin Dose 1 EACH; Start 04/21/17 at 21:00 KING MARQUES NP May 05, 2017 13:59
[2017-05-05 15:27] VITALS: BP 97/51; RESP 20
--- NOTE | 2017-05-05 15:42 | PN ---
Date/Time of Note Date/Time of Note DATE: 05/05/17 TIME: 15:40 Assessment/Plan VTE Prophylaxis VTE Prophylaxis Intervention: heparin Lines/Catheters IV C[facility]ter Type (from [facility]): PICC Line Central line still needed: Yes Urinary Cath still in place: No Assessment/Plan Chief Complaint/Hosp Course 1. Complicated urinary tract infection with polymicrobial's including E. coli ESBL. Status post antimicrobials as per infectious diseases. Repeat urine cultures also showing E. coli ESBL and Stenotrophomonas maltophilia. Therefore, the patient was restarted on antibiotics. Off antibiotics currently. 2. Acute nonoliguric kidney injury. Etiology unclear. The patient being followed by nephrology. Use nephrotoxic drugs with caution. 3. Bladder cancer. Status post radical cystoprostatectomy and creation of ileal conduit with colonic diversion for fistula formation. S./P Urology evaluation who agreed with the current management. 4. Status post perforated viscus repair complicated by intra-abdominal abscess requiring CT-guided drainage on previous admission. Being followed by surgery. 5. Severe protein calorie malnutrition. Patient on TPN. The patient on a mechanical soft diet. 6. Normocytic anemia. Etiology unclear. Probably anemia of chronic disease. 7. Fluids, electrolytes, and nutrition. TPN. Mechanical soft diet. 8. DVT prophylaxis. Subcutaneous heparin. 9. Plan. Obtain bilateral lower extremity venous Doppler study since the patient was complaining of left lower extremity pain and difficulty with ambulation. Discharge the patient home if the Doppler is negative. Case discussed with Dr. Mireles. Problems: Subjective 24 Hr Interval Summary Free Text/Dictation Complains of new onset bilateral lower extremity pain for the past couple days. Exam/Review of Systems Vital Signs Vitals Vital Signs Date Time Temp Pulse Resp B/P Pulse Ox O2 Delivery O2 Flow Rate FiO2 05/05/17 15:27 99.3 55 20 97/51 96 05/01/17 20:21 Room Air Intake and Output 05/04/17 05/04/17 05/05/17 15:00 23:00 07:00 Intake Total 700 ml 1150 ml 1680 ml Output Total 2200 ml 500 ml Balance 700 ml -1050 ml 1180 ml Exam General:, Thin, frail looking 66 year-old male lying in bed in no apparent distress. HEENT: Normocephalic, atraumatic. Eyes: Anicteric sclerae, conjunctivae clear. ENT: Nasal septum midline, oral mucosa moist. Neck supple, no JVD noticed. Respiratory: Bilaterally diminished breath sounds. No use of accessory muscles of respiration. No adventitious breath sounds. Cardiovascular: S1, S2 heard. No murmurs or gallops. Abdomen: Soft, nontender, and nondistended. Ileostomy bud pink. Colostomy pink bud moist. Ileal conduit. Genitourinary: Deferred. Extremities: No cyanosis, no clubbing, no edema. Peripheral pulses palpable. Neurologic: Cranial nerves II through XII grossly intact. The patient is awake, alert, and oriented. Skin: Normal skin turgor. No skin rashes. Results Result Diagram: 05/03/17 0428 05/05/17 0500 Results 24 hrs Laboratory Tests Test 05/04/17 19:59 05/05/17 02:24 05/05/17 05:00 05/05/17 08:44 Bedside Glucose 132 96 119 Sodium Level 137 Potassium Level 4.2 Chloride Level 99 Carbon Dioxide Level 26 Anion Gap 16 Blood Urea Nitrogen 48 H Creatinine 2.37 H Glucose Level 110 Calcium Level 9.4 Phosphorus Level 4.2 Magnesium Level 1.9 Test 05/05/17 11:36 05/05/17 13:29 Bedside Glucose 157 113 Medications Medications Current Medications Ondansetron HCl (Zofran Inj) 4 mg Q6H PRN IV NAUSEA AND/OR VOMITING Last administered on 05/05/17 11:33; Admin Dose 4 MG; Start 03/30/17 at 03:30 Heparin Sodium (Porcine) (Heparin (5000 Units/0.5 ml)) 5,000 unit DAILY SC Last administered on 05/05/17 08:53; Admin Dose 5,000 UNIT; Start 03/30/17 at 09:00 Oxycodone/ Acetaminophen 1 tab 1 tab Q4H PRN PO PAIN Last administered on 05/05 13:37; Admin Dose 1 TAB; Start 03/30/17 at 06:00 Total Parenteral Nutrition (Tpn) 1,000 ml @ 70 mls/hr [id number] IV Last administered on 05/05/17 04:41; Admin Dose 70 MLS/HR; Start 03/31/17 at 15:00 Insulin Glargine (Lantus) 10 unit HS SC Last administered on 05/04/17 20:01; Admin Dose 10 UNIT; Start 04/01/17 at 21:00 Miscellaneous Information 1 ea NOTE XX ; Start 03/31/17 at 21:00 Glucose (Glutose) 15 gm Q15M PRN PO DECREASED GLUCOSE; Start 03/31/17 at 21:00 Glucose (Glutose) 22.5 gm Q15M PRN PO DECREASED GLUCOSE; Start 03/31/17 at 21: 00 Dextrose (D50w Syringe) 25 ml Q15M PRN IV DECREASED GLUCOSE; Start 03/31/17 at 21:00 Dextrose (D50w Syringe) 50 ml Q15M PRN IV DECREASED GLUCOSE; Start 03/31/17 at 21:00 Glucagon (Glucagen) 1 mg Q15M PRN IM DECREASED GLUCOSE; Start 03/31/17 at 21: 00 Glucose (Glutose) 15 gm Q15M PRN BUCCAL DECREASED GLUCOSE; Start 03/31/17 at 21:00 Diagnostic Test (Pha) (Accu-Chek) 1 ea 02 XX Last administered on 04/22/17 02 :00; Admin Dose 1 EA; Start 04/06/17 at 02:00 Ascorbic Acid (Vitamin C) 500 mg DAILY PO Last administered on 05/05/17 08:46 ; Admin Dose 500 MG; Start 04/11/17 at 09:00 Zinc Sulfate (Zinc Sulfate) 220 mg DAILY PO Last administered on 05/05/17 08: 46; Admin Dose 220 MG; Start 04/11/17 at 09:00 Fentanyl (Duragesic 25 Mcg/Hr Patch) 1 patch Q3D TRANSDERM Last administered on 05/02/17 17:55; Admin Dose 1 PATCH; Start 04/11/17 at 17:00 Loperamide HCl (Imodium Cap) 2 mg TID PO Last administered on 05/05/17 13:36 ; Admin Dose 2 MG; Start 04/15/17 at 13:00 Nystatin (Nystatin Powder) 1 applic PRN TOP Last administered on 04/25/17 18: 06; Admin Dose 1 APPLIC; Start 04/16/17 at 16:30 Acetaminophen (Tylenol Tab) 650 mg Q6H PRN PO PAIN AND OR ELEVATED TEMP Last administered on 04/20/17 22:42; Admin Dose 650 MG; Start 04/20/17 at 22:00 Lactobacillus Acidophilus (Florajen3 Capsule) 1 each BID PO Last administered on 05/05/17t 08:46; Admin Dose 1 EACH; Start 04/21/17 at 21:00 BRENDA PETTIT NP May 05, 2017 15:42 BRENDA PETTIT NP May 05, 2017 15:42
[2017-05-05 20:00] VITALS: BP 94/50; RESP 19
[2017-05-05] MEDS: INSULIN GLARGINE [LANtus] 3 ML PEN SC SCH (21:23)
--- NOTE | 2017-05-05 22:31 | RADRPT ---
PROCEDURE: Ultrasound of the bilateral lower extremity venous system. CLINICAL INDICATION: Bilateral leg pain and swelling, deep venous thrombosis TECHNIQUE: Mckeon scale with and without compression, color doppler, spectral doppler of the venous system of the bilateral lower extremities was performed. Venous augmentation maneuvers were utilized . COMPARISON: No prior studies are available for comparison. FINDINGS: Right: Common femoral vein: Patent. Femoral vein: Age indeterminate nonocclusive thrombus within the mid and distal segment of the vessel. Popliteal vein: Patent. Calf veins: Patent. No soft tissue abnormalities are identified. Left: Common femoral vein: Patent. Femoral vein: Patent. Popliteal vein: Patent. Calf veins: Patent. No soft tissue abnormalities are identified. IMPRESSION: Age indeterminate nonocclusive thrombus within the mid and distal segments of the right femoral vein . No evidence of left lower extremity deep venous thrombosis. RPTAT: AADD .Filiberto Lockhart MD, MD Date Time Electronically viewed and signed by .Filiberto Lockhart MD, MD on 05/05/2017 22:31 .B/
[2017-05-06 02:00] VITALS: BP 103/55; RESP 19
[2017-05-06] MEDS: ACCUCHECK AT 2AM (Patients on SS coverage) XX SCH (02:00)
[2017-05-06 05:33] LABS: PHOSPHORUS 4.3 mg/dl (2.5-4.9)
[2017-05-06] MEDS: TPN 1,000 ML IV SCH ×2 (05:36→12:58)
[2017-05-06 05:45] LABS: CALCIUM 9.4 mg/dl (8.4-10.2); CREATININE 2.38 mg/dl (0.61-1.24); POTASSIUM 4.2 mmol/L (3.5-5.1)
[2017-05-06] MEDS: Insulin NOVOLOG SS MODERATE Algorithm (SS with meals and bedtime) SC SCH ×4 (07:50→20:41)
[2017-05-06] MEDS: ZINC SULFATE 220 MG CAP PO SCH (08:35)
[2017-05-06] MEDS: ASCORBIC ACID 500 MG TAB PO SCH (08:35)
[2017-05-06] MEDS: L ACIDOPHIL/B LACTIS/B LONGUM CAPSULE PO SCH ×2 (08:35→20:23)
[2017-05-06] MEDS: LOPERAMIDE 2 MG CAP PO SCH ×3 (08:35→20:23)
[2017-05-06] MEDS: HEPARIN 5,000 UNIT/0.5 ML VIAL SC SCH (08:39)
[2017-05-06 09:03] VITALS: BP 111/61; RESP 19
--- NOTE | 2017-05-06 09:54 | PN ---
Date/Time of Note Date/Time of Note DATE: 05/06/17 TIME: 09:52 Assessment/Plan VTE Prophylaxis VTE Prophylaxis Intervention: heparin Lines/Catheters IV [facility] PICC Line Central line still needed: Yes Urinary Cath still in place: No Assessment/Plan Chief Complaint/Hosp Course 1. Complicated urinary tract infection with polymicrobial's including E. coli ESBL. Status post antimicrobials as per infectious diseases. Repeat urine cultures also showing E. coli ESBL and Stenotrophomonas maltophilia. Therefore, the patient was restarted on antibiotics. Off antibiotics currently. 2. Acute nonoliguric kidney injury. Etiology unclear. The patient being followed by nephrology. Use nephrotoxic drugs with caution. 3. Bladder cancer. Status post radical cystoprostatectomy and creation of ileal conduit with colonic diversion for fistula formation. S./P Urology evaluation who agreed with the current management. 4. Status post perforated viscus repair complicated by intra-abdominal abscess requiring CT-guided drainage on previous admission. Being followed by surgery. 5. Severe protein calorie malnutrition. Patient on TPN. The patient on a mechanical soft diet. 6. Normocytic anemia. Etiology unclear. Probably anemia of chronic disease. 7. 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 Will obtain a vascular surgery consult. 8. Fluids, electrolytes, and nutrition. TPN. Mechanical soft diet. 9. DVT prophylaxis. Subcutaneous heparin. 10. Plan. Discharge the patient home once cleared by Vascular Surgery. Case discussed with Dr. Mireles. Problems: Subjective 24 Hr Interval Summary Free Text/Dictation The patient remains afebrile. Complains of bilateral lower extremity pain. Exam/Review of Systems Vital Signs Vitals Vital Signs Date Time Temp Pulse Resp B/P Pulse Ox O2 Delivery O2 Flow Rate FiO2 05/06/17 09:03 98.0 59 19 111/61 98 Intake and Output 05/05/17 05/05/17 05/06/17 15:00 23:00 07:00 Intake Total 1530 ml 1180 ml Output Total 3000 ml 950 ml Balance -1470 ml 230 ml Exam General:, Thin, frail looking 66 year-old male lying in bed in no apparent distress. HEENT: Normocephalic, atraumatic. Eyes: Anicteric sclerae, conjunctivae clear. ENT: Nasal septum midline, oral mucosa moist. Neck supple, no JVD noticed. Respiratory: Bilaterally diminished breath sounds. No use of accessory muscles of respiration. No adventitious breath sounds. Cardiovascular: S1, S2 heard. No murmurs or gallops. Abdomen: Soft, nontender, and nondistended. Ileostomy bud pink. Colostomy pink bud moist. Ileal conduit. Genitourinary: Deferred. Extremities: No cyanosis, no clubbing, no edema. Peripheral pulses palpable. Neurologic: Cranial nerves II through XII grossly intact. The patient is awake, alert, and oriented. Skin: Normal skin turgor. No skin rashes. Results Result Diagram: 05/03/17 0428 05/06/17 0436 Results 24 hrs Laboratory Tests Test 05/05/17 11:36 05/05/17 13:29 05/05/17 18:02 05/05/17 21:17 Bedside Glucose 157 113 106 97 Test 05/06/17 04:36 05/06/17 08:49 Sodium Level 140 Potassium Level 4.2 Chloride Level 101 Carbon Dioxide Level 28 Anion Gap 15 Blood Urea Nitrogen 51 H Creatinine 2.38 H Glucose Level 118 Calcium Level 9.4 Phosphorus Level 4.3 Magnesium Level 2.0 Prealbumin 27.5 Bedside Glucose 108 Medications Medications Current Medications Ondansetron HCl (Zofran Inj) 4 mg Q6H PRN IV NAUSEA AND/OR VOMITING Last administered on 05/05/17 11:33; Admin Dose 4 MG; Start 03/30/17 at 03:30 Heparin Sodium (Porcine) (Heparin (5000 Units/0.5 ml)) 5,000 unit DAILY SC Last administered on 05/06/17 08:39; Admin Dose 5,000 UNIT; Start 03/30/17 at 09:00 Oxycodone/ Acetaminophen 1 tab 1 tab Q4H PRN PO PAIN Last administered on 05/05 21:14; Admin Dose 1 TAB; Start 03/30/17 at 06:00 Total Parenteral Nutrition (Tpn) 1,000 ml @ 70 mls/hr [id number] IV Last administered on 05/05/17 21:25; Admin Dose 70 MLS/HR; Start 03/31/17 at 15:00 Insulin Glargine (Lantus) 10 unit HS SC Last administered on 05/05/17 21:23; Admin Dose 10 UNIT; Start 04/01/17 at 21:00 Miscellaneous Information 1 ea NOTE XX ; Start 03/31/17 at 21:00 Glucose (Glutose) 15 gm Q15M PRN PO DECREASED GLUCOSE; Start 03/31/17 at 21:00 Glucose (Glutose) 22.5 gm Q15M PRN PO DECREASED GLUCOSE; Start 03/31/17 at 21: 00 Dextrose (D50w Syringe) 25 ml Q15M PRN IV DECREASED GLUCOSE; Start 03/31/17 at 21:00 Dextrose (D50w Syringe) 50 ml Q15M PRN IV DECREASED GLUCOSE; Start 03/31/17 at 21:00 Glucagon (Glucagen) 1 mg Q15M PRN IM DECREASED GLUCOSE; Start 03/31/17 at 21: 00 Glucose (Glutose) 15 gm Q15M PRN BUCCAL DECREASED GLUCOSE; Start 03/31/17 at 21:00 Diagnostic Test (Pha) (Accu-Chek) 1 ea 02 XX Last administered on 04/22/17 02 :00; Admin Dose 1 EA; Start 04/06/17 at 02:00 Ascorbic Acid (Vitamin C) 500 mg DAILY PO Last administered on 05/06/17 08:35 ; Admin Dose 500 MG; Start 04/11/17 at 09:00 Zinc Sulfate (Zinc Sulfate) 220 mg DAILY PO Last administered on 05/06/17 08: 35; Admin Dose 220 MG; Start 04/11/17 at 09:00 Fentanyl (Duragesic 25 Mcg/Hr Patch) 1 patch Q3D TRANSDERM Last administered on 05/05/17 18:47; Admin Dose 1 PATCH; Start 04/11/17 at 17:00 Loperamide HCl (Imodium Cap) 2 mg TID PO Last administered on 05/06/17 08:35 ; Admin Dose 2 MG; Start 04/15/17 at 13:00 Nystatin (Nystatin Powder) 1 applic PRN TOP Last administered on 04/25/17 18: 06; Admin Dose 1 APPLIC; Start 04/16/17 at 16:30 Acetaminophen (Tylenol Tab) 650 mg Q6H PRN PO PAIN AND OR ELEVATED TEMP Last administered on 04/20/17 22:42; Admin Dose 650 MG; Start 04/20/17 at 22:00 Lactobacillus Acidophilus (Florajen3 Capsule) 1 each BID PO Last administered on 05/06/17t 08:35; Admin Dose 1 EACH; Start 04/21/17 at 21:00 BRENDA PETTIT NP May 06, 2017 09:54
--- NOTE | 2017-05-06 11:26 | CONS ---
Date/Time of Note Date/Time of Note DATE: 05/06/17 TIME: 11:25 Assessment/Plan Assessment/Plan Chief Complaint/Hosp Course SUBJECTIVE: No acute changes overnight per report. looks comfortable, no fevers PHYSICAL EXAMINATION: GENERAL: This is a cachectic, chronically ill-appearing, elderly, Bengali man who is awake, in no distress. HEENT: Head atraumatic, normocephalic. Sclerae anicteric. Buccal mucosa dry. NECK: Supple. CHEST: Rise symmetrical. Breath sounds clear. HEART: S1, S2. ABDOMEN: Soft. Bowel tones present. ASSESSMENT: 1. S/p recurrent urinary tract infection. 2. History of bladder and prostate cancer, status post chemoradiation, cystoprostatectomy with urinary diversion and ileostomy conduit. 3. History of perforated viscus repair. 4. Acute renal failure. 5. Cachexia. 6. History of obstructive uropathy, status post bilateral JJ stent placement. PLAN: Clinically unchanged, off abx. Pending dc plan DW staff Problems: Consultation Date/Type/Reason Admit Date/Time Mar 30, 2017 at 02:24 Initial Consult Date 04/01/17 Type of Consultation: ID Referring Provider: ALLISON HAYWARD Exam/Review of Systems Vital Signs Vitals Vital Signs Date Time Temp Pulse Resp B/P Pulse Ox O2 Delivery O2 Flow Rate FiO2 05/06/17 09:03 98.0 59 19 111/61 98 Intake and Output 05/05/17 05/05/17 05/06/17 15:00 23:00 07:00 Intake Total 1530 ml 1180 ml Output Total 3000 ml 950 ml Balance -1470 ml 230 ml Results Result Diagram: 05/03/17 0428 05/06/17 0436 Results 24 hrs Laboratory Tests Test 05/05/17 11:36 05/05/17 13:29 05/05/17 18:02 05/05/17 21:17 Bedside Glucose 157 113 106 97 Test 05/06/17 04:36 05/06/17 08:49 Sodium Level 140 Potassium Level 4.2 Chloride Level 101 Carbon Dioxide Level 28 Anion Gap 15 Blood Urea Nitrogen 51 H Creatinine 2.38 H Glucose Level 118 Calcium Level 9.4 Phosphorus Level 4.3 Magnesium Level 2.0 Prealbumin 27.5 Bedside Glucose 108 Medications Medications Current Medications Ondansetron HCl (Zofran Inj) 4 mg Q6H PRN IV NAUSEA AND/OR VOMITING Last administered on 05/05/17 11:33; Admin Dose 4 MG; Start 03/30/17 at 03:30 Heparin Sodium (Porcine) (Heparin (5000 Units/0.5 ml)) 5,000 unit DAILY SC Last administered on 05/06/17 08:39; Admin Dose 5,000 UNIT; Start 03/30/17 at 09:00 Oxycodone/ Acetaminophen 1 tab 1 tab Q4H PRN PO PAIN Last administered on 05/05 21:14; Admin Dose 1 TAB; Start 03/30/17 at 06:00 Total Parenteral Nutrition (Tpn) 1,000 ml @ 70 mls/hr [id number] IV Last administered on 05/05/17 21:25; Admin Dose 70 MLS/HR; Start 03/31/17 at 15:00 Insulin Glargine (Lantus) 10 unit HS SC Last administered on 05/05/17 21:23; Admin Dose 10 UNIT; Start 04/01/17 at 21:00 Miscellaneous Information 1 ea NOTE XX ; Start 03/31/17 at 21:00 Glucose (Glutose) 15 gm Q15M PRN PO DECREASED GLUCOSE; Start 03/31/17 at 21:00 Glucose (Glutose) 22.5 gm Q15M PRN PO DECREASED GLUCOSE; Start 03/31/17 at 21: 00 Dextrose (D50w Syringe) 25 ml Q15M PRN IV DECREASED GLUCOSE; Start 03/31/17 at 21:00 Dextrose (D50w Syringe) 50 ml Q15M PRN IV DECREASED GLUCOSE; Start 03/31/17 at 21:00 Glucagon (Glucagen) 1 mg Q15M PRN IM DECREASED GLUCOSE; Start 03/31/17 at 21: 00 Glucose (Glutose) 15 gm Q15M PRN BUCCAL DECREASED GLUCOSE; Start 03/31/17 at 21:00 Diagnostic Test (Pha) (Accu-Chek) 1 ea 02 XX Last administered on 04/22/17 02 :00; Admin Dose 1 EA; Start 04/06/17 at 02:00 Ascorbic Acid (Vitamin C) 500 mg DAILY PO Last administered on 05/06/17 08:35 ; Admin Dose 500 MG; Start 04/11/17 at 09:00 Zinc Sulfate (Zinc Sulfate) 220 mg DAILY PO Last administered on 05/06/17 08: 35; Admin Dose 220 MG; Start 04/11/17 at 09:00 Fentanyl (Duragesic 25 Mcg/Hr Patch) 1 patch Q3D TRANSDERM Last administered on 05/05/17 18:47; Admin Dose 1 PATCH; Start 04/11/17 at 17:00 Loperamide HCl (Imodium Cap) 2 mg TID PO Last administered on 05/06/17 08:35 ; Admin Dose 2 MG; Start 04/15/17 at 13:00 Nystatin (Nystatin Powder) 1 applic PRN TOP Last administered on 04/25/17 18: 06; Admin Dose 1 APPLIC; Start 04/16/17 at 16:30 Acetaminophen (Tylenol Tab) 650 mg Q6H PRN PO PAIN AND OR ELEVATED TEMP Last administered on 04/20/17 22:42; Admin Dose 650 MG; Start 04/20/17 at 22:00 Lactobacillus Acidophilus (Florajen3 Capsule) 1 each BID PO Last administered on 05/06/17 08:35; Admin Dose 1 EACH; Start 04/21/17 at 21:00 KING MARQUES NP May 06, 2017 11:26
[2017-05-06] MEDS: ONDANSETRON 4 MG INJ IV PRN (13:04)
--- NOTE | 2017-05-06 14:19 | PN ---
Date/Time of Note Date/Time of Note DATE: 05/06/17 TIME: 14:12 Assessment/Plan Lines/Catheters IV Catheter Type (from [facility]): PICC Line Tomas in Place (from [facility]): No Assessment/Plan Chief Complaint/Hosp Course 1. Multiple ostomies and ileal conduit: all ostomies pink and moist; s/p multiple Perforated viscous w small bowel proximal looped ostomy (minimum 6 month wait prior to considering attempting abdominal re-exploration) -continue ostomy care -continue oral feed and supplements -oral diet as tolerated, encourage supplements -oob/ambulate -TPN 2. UTI (polymicrobial, complicated)pink with mucous urine, cultures noted; s/p abx -frequent bladder emptying/cath care -urology 3. Malnutrition: tolerating solid diet;refusing supplements -continue tpn; follow up on nutrition recs -vitamins, probiotics, and nutritional supplements- started nutrifiber -encourage supplements -hopefully wean off tpn -antimotility agent; oral narcotics 4. MANA: cr still elevated -judicious fluids -limit nephrotoxic meds -per renal 5. Bladder cancer: s/p chemo/radiation, s/p cystoprostatectomy with urinary diversion -per oncology/urology 6. Normocytic hypochromic anemia: no overt bleed noted -monitor -transfuse as needed -further workup per medical team 7. Pelvic pain:on fentanyl patch and po narcotics; improved -pain management Thank you. Patient seen and examined in collaboration with Dr. Bang Ross Problems: Subjective 24 Hr Interval Summary Min nausea no vomiting. TPN. improved pain. Thrombus within the mid and distal segments of the right femoral vein. No fevers, chills, sob, congested cough, cp , palpitations, craig, dizziness, n/v/d/dysuria. Ostomies pink and moist. Exam/Review of Systems Vital Signs Vitals Vital Signs Date Time Temp Pulse Resp B/P Pulse Ox O2 Delivery O2 Flow Rate FiO2 05/06/17 09:03 98.0 59 19 111/61 98 Intake and Output 05/05/17 05/05/17 05/06/17 14:59 22:59 06:59 Intake Total 1530 ml 1180 ml Output Total 3000 ml 950 ml Balance -1470 ml 230 ml Exam Free Text/Dictation Constitutional: alert, oriented Psych: nl mood Head: atraumatic, normocephalic Eyes: nl lids, nl sclera ENMT: mucosa pink and moist, nl nasal mucosa & septum Neck: non-tender, supple Respiratory: normal air movement Cardiovascular: nl pulses, regular rate and rhythm Gastrointestinal: non-tender, other (ileostomy, colostomy,ileal conduit -all ostomies pink and moist), soft, Genitourinary - Male: nl penis, nl scrotum; ileal conduit with clear/light pink urine Musculoskeletal: nl extremities to inspection, nl gait and stance Extremities: normal pulses, No edema Neurological: nl mental status, nl speech Skin: nl turgor, rash or lesions; lower abdomen wound healed Results Result Diagram: 05/03/17 0428 05/06/17 0436 IFTIKHAR ROBERTSON NP May 06, 2017 14:19
[2017-05-06 15:29] VITALS: BP 121/66; RESP 19
--- NOTE | 2017-05-06 16:05 | CONS ---
Date/Time of Note Date/Time of Note DATE: 05/06/17 TIME: 16:04 Assessment/Plan Assessment/Plan Additional Assessment/Plan 1. acute kidney injury Non oliguric .2/2 ATN+ prerenal azotemia 2. H/o ESBL UTI 3.history of bladder cancer s/p TURBT, chemotherapy/radiation, urethral damage, chemo/radiation induced urinary and fecal incontinence. He underwent cystoprostatectomy with urinary diversion, ileal conduit, colonic diversion for fistula on last admission 4. Anemia of Chronic disease 5. Severe protein calorie malnutrition Plan: - IV ertapenem 1 gram IV daily , Cr 2.38, BP stable, bactrim, stopped yesterday - on TPN -will continue to follow up Consultation Date/Type/Reason Admit Date/Time Mar 30, 2017 at 02:24 Initial Consult Date 03/30/17 Type of Consultation: NEPHROLOGY Referring Provider: ALLISON HAYWARD 24 HR Interval Summary Free Text/Dictation Cr 2.38, BP stable Exam/Review of Systems Vital Signs Vitals Vital Signs Date Time Temp Pulse Resp B/P Pulse Ox O2 Delivery O2 Flow Rate FiO2 05/06/17 15:29 98.2 67 19 121/66 97 Intake and Output 05/05/17 05/05/17 05/06/17 15:00 23:00 07:00 Intake Total 1530 ml 1180 ml Output Total 3000 ml 950 ml Balance -1470 ml 230 ml Exam Constitutional: weak. No acute distress. He is cachectic) Head: atraumatic, normocephalic Respiratory: clear to auscultation, normal air movement Cardiovascular: nl pulses, regular rate and rhythm Gastrointestinal: Urostomy, colostomy and ileal conduit) Extremities: normal pulses + PICC line in place , on TPN Results Result Diagram: 05/03/17 0428 05/06/17 0436 Results 24 hrs Laboratory Tests Test 05/05/17 18:02 05/05/17 21:17 05/06/17 04:36 05/06/17 08:49 Bedside Glucose 106 97 108 Sodium Level 140 Potassium Level 4.2 Chloride Level 101 Carbon Dioxide Level 28 Anion Gap 15 Blood Urea Nitrogen 51 H Creatinine 2.38 H Glucose Level 118 Calcium Level 9.4 Phosphorus Level 4.3 Magnesium Level 2.0 Prealbumin 27.5 Test 05/06/17 12:29 Bedside Glucose 112 Medications Medications Current Medications Ondansetron HCl (Zofran Inj) 4 mg Q6H PRN IV NAUSEA AND/OR VOMITING Last administered on 05/06/17 13:04; Admin Dose 4 MG; Start 03/30/17 at 03:30 Heparin Sodium (Porcine) (Heparin (5000 Units/0.5 ml)) 5,000 unit DAILY SC Last administered on 05/06/17 08:39; Admin Dose 5,000 UNIT; Start 03/30/17 at 09:00 Oxycodone/ Acetaminophen 1 tab 1 tab Q4H PRN PO PAIN Last administered on 05/05 21:14; Admin Dose 1 TAB; Start 03/30/17 at 06:00 Total Parenteral Nutrition (Tpn) 1,000 ml @ 70 mls/hr [id number] IV Last administered on 05/06/17 12:58; Admin Dose 70 MLS/HR; Start 03/31/17 at 15:00 Insulin Glargine (Lantus) 10 unit HS SC Last administered on 05/05/17 21:23; Admin Dose 10 UNIT; Start 04/01/17 at 21:00 Miscellaneous Information 1 ea NOTE XX ; Start 03/31/17 at 21:00 Glucose (Glutose) 15 gm Q15M PRN PO DECREASED GLUCOSE; Start 03/31/17 at 21:00 Glucose (Glutose) 22.5 gm Q15M PRN PO DECREASED GLUCOSE; Start 03/31/17 at 21: 00 Dextrose (D50w Syringe) 25 ml Q15M PRN IV DECREASED GLUCOSE; Start 03/31/17 at 21:00 Dextrose (D50w Syringe) 50 ml Q15M PRN IV DECREASED GLUCOSE; Start 03/31/17 at 21:00 Glucagon (Glucagen) 1 mg Q15M PRN IM DECREASED GLUCOSE; Start 03/31/17 at 21: 00 Glucose (Glutose) 15 gm Q15M PRN BUCCAL DECREASED GLUCOSE; Start 03/31/17 at 21:00 Diagnostic Test (Pha) (Accu-Chek) 1 ea 02 XX Last administered on 04/22/17 02 :00; Admin Dose 1 EA; Start 04/06/17 at 02:00 Ascorbic Acid (Vitamin C) 500 mg DAILY PO Last administered on 05/06/17 08:35 ; Admin Dose 500 MG; Start 04/11/17 at 09:00 Zinc Sulfate (Zinc Sulfate) 220 mg DAILY PO Last administered on 05/06/17 08: 35; Admin Dose 220 MG; Start 04/11/17 at 09:00 Fentanyl (Duragesic 25 Mcg/Hr Patch) 1 patch Q3D TRANSDERM Last administered on 05/05/17 18:47; Admin Dose 1 PATCH; Start 04/11/17 at 17:00 Loperamide HCl (Imodium Cap) 2 mg TID PO Last administered on 05/06/17 12:58 ; Admin Dose 2 MG; Start 04/15/17 at 13:00 Nystatin (Nystatin Powder) 1 applic PRN TOP Last administered on 04/25/17 18: 06; Admin Dose 1 APPLIC; Start 04/16/17 at 16:30 Acetaminophen (Tylenol Tab) 650 mg Q6H PRN PO PAIN AND OR ELEVATED TEMP Last administered on 04/20/17 22:42; Admin Dose 650 MG; Start 04/20/17 at 22:00 Lactobacillus Acidophilus (Florajen3 Capsule) 1 each BID PO Last administered on 05/06/17 08:35; Admin Dose 1 EACH; Start 04/21/17 at 21:00 MARGOT WOMACK MD May 06, 2017 16:05
[2017-05-06 19:25] VITALS: BP 92/50; RESP 18
[2017-05-06] MEDS: INSULIN GLARGINE [LANtus] 3 ML PEN SC SCH (20:41)
[2017-05-06] MEDS: OXYCODONE/ACETAMINOPHEN (5/325) TAB PO PRN (20:46)
[2017-05-07 02:03] VITALS: BP 100/58; RESP 18
[2017-05-07] MEDS: ACCUCHECK AT 2AM (Patients on SS coverage) XX SCH (02:19)
[2017-05-07] MEDS: TPN 1,000 ML IV SCH ×2 (04:08→21:08)
[2017-05-07 05:09] LABS: BASOPHIL # 0.1 10^3/ul (0.0-0.1); BASOPHILS % 0.5 % (0.0-2.0); EOSINOPHILS # 0.2 10^3/ul (0.0-0.5); EOSINOPHILS % 1.8 % (0.0-7.0); HEMATOCRIT 28.5 % (42.0-52.0); HEMOGLOBIN 9.2 g/dl (14.0-18.0); LYMPHOCYTES # 2.2 10^3/ul (0.8-2.9); LYMPHOCYTES % 22.4 % (15.0-51.0); MEAN CORPUSCULAR HEMOGLOBIN 27.8 pg (29.0-33.0); MEAN CORPUSCULAR HGB CONC 32.3 g/dl (32.0-37.0); MEAN CORPUSCULAR VOLUME 86.1 fl (82.0-101.0); MEAN PLATELET VOLUME 9.3 fl (7.4-10.4); MONOCYTE # 0.7 10^3/ul (0.3-0.9); MONOCYTES % 7.2 % (0.0-11.0); NEUTROPHIL # 6.6 10^3/ul (1.6-7.5); NEUTROPHILS % 67.6 % (39.0-77.0); PLATELET COUNT 319 10^3/UL (140-415); RED BLOOD COUNT 3.31 10^6/ul (4.70-6.10); RED CELL DISTRIBUTION WIDTH 14.5 % (11.5-14.5); WHITE BLOOD COUNT 9.8 10^3/ul (4.8-10.8)
[2017-05-07 05:46] LABS: CALCIUM 9.5 mg/dl (8.4-10.2); CREATININE 2.33 mg/dl (0.61-1.24); POTASSIUM 4.3 mmol/L (3.5-5.1)
[2017-05-07 07:39] VITALS: BP 101/61; RESP 19
[2017-05-07] MEDS: Insulin NOVOLOG SS MODERATE Algorithm (SS with meals and bedtime) SC SCH ×4 (07:50→21:00)
[2017-05-07 08:06] LABS: MAGNESIUM 2.2 mg/dl (1.7-2.5)
--- NOTE | 2017-05-07 08:22 | PN ---
Date/Time of Note Date/Time of Note DATE: 05/07/17 TIME: 08:21 Assessment/Plan VTE Prophylaxis VTE Prophylaxis Intervention: heparin Lines/Catheters IV Catheter Type (from [facility]): PICC Line Central line still needed: Yes Urinary Cath still in place: No Assessment/Plan Chief Complaint/Hosp Course 1. S/P complicated urinary tract infection with polymicrobial's including E. coli ESBL. Status post antimicrobials as per infectious diseases. Repeat urine cultures also showing E. coli ESBL and Stenotrophomonas maltophilia. Therefore, the patient was restarted on antibiotics. Off antibiotics currently. 2. Acute nonoliguric kidney injury. Etiology unclear. The patient being followed by nephrology. Use nephrotoxic drugs with caution. 3. Bladder cancer. Status post radical cystoprostatectomy and creation of ileal conduit with colonic diversion for fistula formation. S./P Urology evaluation who agreed with the current management. 4. Status post perforated viscus repair complicated by intra-abdominal abscess requiring CT-guided drainage on previous admission. Being followed by surgery. 5. Severe protein calorie malnutrition. Patient on TPN. The patient on a mechanical soft diet. 6. Normocytic anemia. Etiology unclear. Probably anemia of chronic disease. 7. 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 Start therapeutic anticoagulation with heparin as per Vascular Surgery and switch to orals. No interventions. 8. Fluids, electrolytes, and nutrition. TPN. Mechanical soft diet. 9. DVT prophylaxis. To be started on heparin gtt. 10. Plan. Start full anticoagulation. Case discussed with Dr. Mireles. Problems: Subjective 24 Hr Interval Summary Free Text/Dictation Continues to have RLE pain. Exam/Review of Systems Vital Signs Vitals Vital Signs Date Time Temp Pulse Resp B/P Pulse Ox O2 Delivery O2 Flow Rate FiO2 05/07/17 07:39 98.2 70 19 101/61 98 Intake and Output 05/06/17 05/06/17 05/07/17 14:59 22:59 06:59 Intake Total 420 ml 1040 ml 1210 ml Output Total 2800 ml 500 ml Balance 420 ml -1760 ml 710 ml Exam General:, Thin, frail looking 66 year-old male lying in bed in no apparent distress. HEENT: Normocephalic, atraumatic. Eyes: Anicteric sclerae, conjunctivae clear. ENT: Nasal septum midline, oral mucosa moist. Neck supple, no JVD noticed. Respiratory: Bilaterally diminished breath sounds. No use of accessory muscles of respiration. No adventitious breath sounds. Cardiovascular: S1, S2 heard. No murmurs or gallops. Abdomen: Soft, nontender, and nondistended. Ileostomy bud pink. Colostomy pink bud moist. Ileal conduit. Genitourinary: Deferred. Extremities: No cyanosis, no clubbing, no edema. Peripheral pulses palpable. Neurologic: Cranial nerves II through XII grossly intact. The patient is awake, alert, and oriented. Skin: Normal skin turgor. No skin rashes. Results Result Diagram: 05/07/17 04205/07/17 042 Results 24 hrs Laboratory Tests Test 05/06/17 08:49 05/06/17 12:29 05/06/17 17:54 05/06/17 20:36 Bedside Glucose 108 112 117 133 Test 05/07/17 02:17 05/07/17 04:26 Bedside Glucose 111 White Blood Count 9.8 Red Blood Count 3.31 L Hemoglobin 9.2 L Hematocrit 28.5 L Mean Corpuscular Volume 86.1 Mean Corpuscular Hemoglobin 27.8 L Mean Corpuscular Hemoglobin Concent 32.3 Red Cell Distribution Width 14.5 Platelet Count 319 Mean Platelet Volume 9.3 Neutrophils % 67.6 Lymphocytes % 22.4 Monocytes % 7.2 Eosinophils % 1.8 Basophils % 0.5 Nucleated Red Blood Cells % 0.0 Neutrophils # 6.6 Lymphocytes # 2.2 Monocytes # 0.7 Eosinophils # 0.2 Basophils # 0.1 Nucleated Red Blood Cells # 0.0 Sodium Level 141 Potassium Level 4.3 Chloride Level 101 Carbon Dioxide Level 29 Anion Gap 15 Blood Urea Nitrogen 57 H Creatinine 2.33 H Glucose Level 90 Calcium Level 9.5 Phosphorus Level 4.0 Magnesium Level 2.2 Medications Medications Current Medications Ondansetron HCl (Zofran Inj) 4 mg Q6H PRN IV NAUSEA AND/OR VOMITING Last administered on 05/06/17 13:04; Admin Dose 4 MG; Start 03/30/17 at 03:30 Heparin Sodium (Porcine) (Heparin (5000 Units/0.5 ml)) 5,000 unit DAILY SC Last administered on 05/06/17 08:39; Admin Dose 5,000 UNIT; Start 03/30/17 at 09:00 Oxycodone/ Acetaminophen 1 tab 1 tab Q4H PRN PO PAIN Last administered on 05/06 20:46; Admin Dose 1 TAB; Start 03/30/17 at 06:00 Total Parenteral Nutrition (Tpn) 1,000 ml @ 70 mls/hr [id number] IV Last administered on 05/07/17 04:08; Admin Dose 70 MLS/HR; Start 03/31/17 at 15:00 Insulin Glargine (Lantus) 10 unit HS SC Last administered on 05/06/17 20:41; Admin Dose 10 UNIT; Start 04/01/17 at 21:00 Miscellaneous Information 1 ea NOTE XX ; Start 03/31/17 at 21:00 Glucose (Glutose) 15 gm Q15M PRN PO DECREASED GLUCOSE; Start 03/31/17 at 21:00 Glucose (Glutose) 22.5 gm Q15M PRN PO DECREASED GLUCOSE; Start 03/31/17 at 21: 00 Dextrose (D50w Syringe) 25 ml Q15M PRN IV DECREASED GLUCOSE; Start 03/31/17 at 21:00 Dextrose (D50w Syringe) 50 ml Q15M PRN IV DECREASED GLUCOSE; Start 03/31/17 at 21:00 Glucagon (Glucagen) 1 mg Q15M PRN IM DECREASED GLUCOSE; Start 03/31/17 at 21: 00 Glucose (Glutose) 15 gm Q15M PRN BUCCAL DECREASED GLUCOSE; Start 03/31/17 at 21:00 Diagnostic Test (Pha) (Accu-Chek) 1 ea 02 XX Last administered on 05/07/17 02: 19; Admin Dose 1 EA; Start 04/06/17 at 02:00 Ascorbic Acid (Vitamin C) 500 mg DAILY PO Last administered on 05/06/17 08:35 ; Admin Dose 500 MG; Start 04/11/17 at 09:00 Zinc Sulfate (Zinc Sulfate) 220 mg DAILY PO Last administered on 05/06/17 08: 35; Admin Dose 220 MG; Start 04/11/17 at 09:00 Fentanyl (Duragesic 25 Mcg/Hr Patch) 1 patch Q3D TRANSDERM Last administered on 05/05/17 18:47; Admin Dose 1 PATCH; Start 04/11/17 at 17:00 Loperamide HCl (Imodium Cap) 2 mg TID PO Last administered on 05/06/17 20:23 ; Admin Dose 2 MG; Start 04/15/17 at 13:00 Nystatin (Nystatin Powder) 1 applic PRN TOP Last administered on 04/25/17 18: 06; Admin Dose 1 APPLIC; Start 04/16/17 at 16:30 Acetaminophen (Tylenol Tab) 650 mg Q6H PRN PO PAIN AND OR ELEVATED TEMP Last administered on 04/20/17 22:42; Admin Dose 650 MG; Start 04/20/17 at 22:00 Lactobacillus Acidophilus (Florajen3 Capsule) 1 each BID PO Last administered on 05/06/17 20:23; Admin Dose 1 EACH; Start 04/21/17 at 21:00 BRENDA PETTIT NP May 07, 2017 08:22
[2017-05-07] MEDS ORDERED: HEPARIN 1000 UNITS/ML 10 ML INJ IV ONE (09:00)
[2017-05-07] MEDS ORDERED: HEPARIN 1000 UNITS/ML 10 ML INJ IV PRN (09:00)
[2017-05-07] MEDS: ASCORBIC ACID 500 MG TAB PO SCH (09:08)
[2017-05-07] MEDS: LOPERAMIDE 2 MG CAP PO SCH ×3 (09:08→21:00)
[2017-05-07] MEDS: ZINC SULFATE 220 MG CAP PO SCH (09:08)
[2017-05-07] MEDS: L ACIDOPHIL/B LACTIS/B LONGUM CAPSULE PO SCH ×2 (09:09→21:01)
[2017-05-07 10:49] LABS: INR 0.93; PARTIAL THROMBOPLASTIN TIME 30.3 Sec (25.0-35.0); PROTIME 12.5 Sec (11.9-14.9)
[2017-05-07] MEDS: HEPARIN 25000 UNITS/250 ML 250 ML IV SCH (11:43)
--- NOTE | 2017-05-07 12:17 | PN ---
Date/Time of Note Date/Time of Note DATE: 05/07/17 TIME: 12:10 Assessment/Plan Lines/Catheters IV Catheter Type (from [facility]): PICC Line Tomas in Place (from [facility]): No Assessment/Plan Chief Complaint/Hosp Course 1. Multiple ostomies and ileal conduit: all ostomies pink and moist; s/p multiple Perforated viscous w small bowel proximal looped ostomy (minimum 6 month wait prior to considering attempting abdominal re-exploration) -continue ostomy care -continue oral feed and supplements -oral diet as tolerated, encourage supplements -oob/ambulate -TPN 2. UTI (polymicrobial, complicated)pink with mucous urine, cultures noted; s/p abx -frequent bladder emptying/cath care -urology 3. Malnutrition: tolerating solid diet;refusing supplements -continue tpn; follow nutrition recs for cyclic tpn -vitamins, probiotics, and nutritional supplements- started nutrifiber -encourage supplements -hopefully wean off tpn -antimotility agent; oral narcotics 4. MANA: cr improving -judicious fluids -limit nephrotoxic meds -per renal 5. Bladder cancer: s/p chemo/radiation, s/p cystoprostatectomy with urinary diversion -per oncology/urology 6. Normocytic hypochromic anemia: no overt bleed noted -monitor -transfuse as needed -further workup per medical team 7. Pelvic pain:on fentanyl patch and po narcotics; improved -pain management Thank you. Patient seen and examined in collaboration with Dr. Bang Ross Problems: Subjective 24 Hr Interval Summary Blood clot lower extremity, started on anticoagulation. Feels well. Continues on tpn. No fevers, chills, sob, congested cough, cp, palpitations, craig, dizziness , n/v/d/dysuria. Exam/Review of Systems Vital Signs Vitals Vital Signs Date Time Temp Pulse Resp B/P Pulse Ox O2 Delivery O2 Flow Rate FiO2 05/07/17 07:39 98.2 70 19 101/61 98 Intake and Output 05/06/17 05/06/17 05/07/17 15:00 23:00 07:00 Intake Total 420 ml 1040 ml 1210 ml Output Total 2800 ml 500 ml Balance 420 ml -1760 ml 710 ml Exam Free Text/Dictation Constitutional: alert, oriented Psych: nl mood Head: atraumatic, normocephalic Eyes: nl lids, nl sclera ENMT: mucosa pink and moist, nl nasal mucosa & septum Neck: non-tender, supple Respiratory: normal air movement Cardiovascular: nl pulses, regular rate and rhythm Gastrointestinal: non-tender, other (ileostomy, colostomy,ileal conduit -all ostomies pink and moist), soft, Genitourinary - Male: nl penis, nl scrotum; ileal conduit with clear/light pink urine Musculoskeletal: nl extremities to inspection, nl gait and stance Extremities: normal pulses, No edema Neurological: nl mental status, nl speech Skin: nl turgor, rash or lesions; lower abdomen wound healed Results Result Diagram: 05/07/1742505/07/176 IFTIKAHR ROBERTSON NP May 07, 2017 12:17
[2017-05-07] MEDS: ONDANSETRON 4 MG INJ IV PRN ×2 (12:29→21:00)
[2017-05-07] MEDS ORDERED: TPN 1,000 ML IV SCH (12:30)
--- NOTE | 2017-05-07 12:38 | CONS ---
Date/Time of Note Date/Time of Note DATE: 05/07/17 TIME: 12:37 Assessment/Plan Assessment/Plan Chief Complaint/Hosp Course SUBJECTIVE: No acute changes overnight per report, looks comfortable, no fevers PHYSICAL EXAMINATION: GENERAL: This is a cachectic, chronically ill-appearing, elderly, [place] man who is awake, in no distress. HEENT: Head atraumatic, normocephalic. Sclerae anicteric. Buccal mucosa dry. NECK: Supple. CHEST: Rise symmetrical. Breath sounds clear. HEART: S1, S2. ABDOMEN: Soft. Bowel tones present. ASSESSMENT: 1. S/p recurrent urinary tract infection. 2. History of bladder and prostate cancer, status post chemoradiation, cystoprostatectomy with urinary diversion and ileostomy conduit. 3. History of perforated viscus repair. 4. Acute renal failure. 5. Cachexia. 6. History of obstructive uropathy, status post bilateral JJ stent placement. PLAN: Clinically unchanged, off abx. Pending dc plan [facility] staff Problems: Consultation Date/Type/Reason Admit Date/Time Mar 30, 2017 at 02:24 Initial Consult Date 04/01/17 Type of Consultation: ID Referring Provider: ALLISON HAYWARD Exam/Review of Systems Vital Signs Vitals Vital Signs Date Time Temp Pulse Resp B/P Pulse Ox O2 Delivery O2 Flow Rate FiO2 05/07/17 07:39 98.2 70 19 101/61 98 Intake and Output 05/06/17 05/06/17 05/07/17 15:00 23:00 07:00 Intake Total 420 ml 1040 ml 1210 ml Output Total 2800 ml 500 ml Balance 420 ml -1760 ml 710 ml Results Result Diagram: 05/07/17 0426 05/07/17 0426 Results 24 hrs Laboratory Tests Test 05/06/17 17:54 05/06/17 20:36 05/07/17 02:17 05/07/17 04:26 Bedside Glucose 117 133 111 White Blood Count 9.8 Red Blood Count 3.31 L Hemoglobin 9.2 L Hematocrit 28.5 L Mean Corpuscular Volume 86.1 Mean Corpuscular Hemoglobin 27.8 L Mean Corpuscular Hemoglobin Concent 32.3 Red Cell Distribution Width 14.5 Platelet Count 319 Mean Platelet Volume 9.3 Neutrophils % 67.6 Lymphocytes % 22.4 Monocytes % 7.2 Eosinophils % 1.8 Basophils % 0.5 Nucleated Red Blood Cells % 0.0 Neutrophils # 6.6 Lymphocytes # 2.2 Monocytes # 0.7 Eosinophils # 0.2 Basophils # 0.1 Nucleated Red Blood Cells # 0.0 Sodium Level 141 Potassium Level 4.3 Chloride Level 101 Carbon Dioxide Level 29 Anion Gap 15 Blood Urea Nitrogen 57 H Creatinine 2.33 H Glucose Level 90 Calcium Level 9.5 Phosphorus Level 4.0 Magnesium Level 2.2 Test 05/07/17 08:59 05/07/17 09:41 05/07/17 12:35 Bedside Glucose 121 120 Prothrombin Time 12.5 Prothrombin Time Ratio 1.0 INR International Normalized Ratio 0.93 Activated Partial Thromboplast Time 30.3 Medications Medications Current Medications Ondansetron HCl (Zofran Inj) 4 mg Q6H PRN IV NAUSEA AND/OR VOMITING Last administered on 05/07/17 12:29; Admin Dose 4 MG; Start 03/30/17 at 03:30 Oxycodone/ Acetaminophen 1 tab 1 tab Q4H PRN PO PAIN Last administered on 05/06 20:46; Admin Dose 1 TAB; Start 03/30/17 at 06:00 Total Parenteral Nutrition (Tpn) 1,000 ml @ 70 mls/hr [id number] IV Last administered on 05/07/17 04:08; Admin Dose 70 MLS/HR; Start 03/31/17 at 15:00 Insulin Glargine (Lantus) 10 unit HS SC Last administered on 05/06/17 20:41; Admin Dose 10 UNIT; Start 04/01/17 at 21:00 Miscellaneous Information 1 ea NOTE XX ; Start 03/31/17 at 21:00 Glucose (Glutose) 15 gm Q15M PRN PO DECREASED GLUCOSE; Start 03/31/17 at 21:00 Glucose (Glutose) 22.5 gm Q15M PRN PO DECREASED GLUCOSE; Start 03/31/17 at 21: 00 Dextrose (D50w Syringe) 25 ml Q15M PRN IV DECREASED GLUCOSE; Start 03/31/17 at 21:00 Dextrose (D50w Syringe) 50 ml Q15M PRN IV DECREASED GLUCOSE; Start 03/31/17 at 21:00 Glucagon (Glucagen) 1 mg Q15M PRN IM DECREASED GLUCOSE; Start 03/31/17 at 21: 00 Glucose (Glutose) 15 gm Q15M PRN BUCCAL DECREASED GLUCOSE; Start 03/31/17 at 21:00 Diagnostic Test (Pha) (Accu-Chek) 1 ea 02 XX Last administered on 05/07/17 02: 19; Admin Dose 1 EA; Start 04/06/17 at 02:00 Ascorbic Acid (Vitamin C) 500 mg DAILY PO Last administered on 05/07/17 09:08 ; Admin Dose 500 MG; Start 04/11/17 at 09:00 Zinc Sulfate (Zinc Sulfate) 220 mg DAILY PO Last administered on 05/07/17 09: 08; Admin Dose 220 MG; Start 04/11/17 at 09:00 Fentanyl (Duragesic 25 Mcg/Hr Patch) 1 patch Q3D TRANSDERM Last administered on 05/05/17 18:47; Admin Dose 1 PATCH; Start 04/11/17 at 17:00 Loperamide HCl (Imodium Cap) 2 mg TID PO Last administered on 05/07/17 12:29; Admin Dose 2 MG; Start 04/15/17 at 13:00 Nystatin (Nystatin Powder) 1 applic PRN TOP Last administered on 04/25/17 18: 06; Admin Dose 1 APPLIC; Start 04/16/17 at 16:30 Acetaminophen (Tylenol Tab) 650 mg Q6H PRN PO PAIN AND OR ELEVATED TEMP Last administered on 04/20/17 22:42; Admin Dose 650 MG; Start 04/20/17 at 22:00 Lactobacillus Acidophilus 1 each 1 each BID PO Last administered on 05/07/17 09:09; Admin Dose 1 EACH; Start 04/21/17 at 21:00 Total Parenteral Nutrition (Tpn) 1,000 ml @ 100 mls/hr Q10H IV ; Start at 12:30; Status KING RALWS NP May 07, 2017 12:38
[2017-05-07 15:16] VITALS: BP 111/67; RESP 19
--- NOTE | 2017-05-07 16:12 | CONS ---
Date/Time of Note Date/Time of Note DATE: 05/07/17 TIME: 16:11 Assessment/Plan Assessment/Plan Additional Assessment/Plan 1. acute kidney injury Non oliguric .2/2 ATN+ prerenal azotemia 2. H/o ESBL UTI 3.history of bladder cancer s/p TURBT, chemotherapy/radiation, urethral damage, chemo/radiation induced urinary and fecal incontinence. He underwent cystoprostatectomy with urinary diversion, ileal conduit, colonic diversion for fistula on last admission 4. Anemia of Chronic disease 5. Severe protein calorie malnutrition Plan: - IV ertapenem 1 gram IV daily , Cr still remains elevated, 2.33, BUN 57, K and other electrolytes stable - on TPN -will continue to follow up Consultation Date/Type/Reason Admit Date/Time Mar 30, 2017 at 02:24 Initial Consult Date 03/30/17 Type of Consultation: NEPHROLOGY Referring Provider: ALLISON HAYWARD 24 HR Interval Summary Free Text/Dictation Cr still remains high 2.33, pt c/o abd pain and knee right pain Exam/Review of Systems Vital Signs Vitals Vital Signs Date Time Temp Pulse Resp B/P Pulse Ox O2 Delivery O2 Flow Rate FiO2 05/07/17 15:16 98.0 69 19 111/67 97 Intake and Output 05/06/17 05/06/17 05/07/17 15:00 23:00 07:00 Intake Total 420 ml 1040 ml 1210 ml Output Total 2800 ml 500 ml Balance 420 ml -1760 ml 710 ml Exam Constitutional: weak. No acute distress. He is cachectic) Head: atraumatic, normocephalic Respiratory: clear to auscultation, normal air movement Cardiovascular: nl pulses, regular rate and rhythm Gastrointestinal: Urostomy, colostomy and ileal conduit) Extremities: normal pulses + PICC line in place , on TPN Results Result Diagram: 05/07/176 05/07/17 0426 Results 24 hrs Laboratory Tests Test 05/06/17 17:54 05/06/17 20:36 05/07/17 02:17 05/07/17 04:26 Bedside Glucose 117 133 111 White Blood Count 9.8 Red Blood Count 3.31 L Hemoglobin 9.2 L Hematocrit 28.5 L Mean Corpuscular Volume 86.1 Mean Corpuscular Hemoglobin 27.8 L Mean Corpuscular Hemoglobin Concent 32.3 Red Cell Distribution Width 14.5 Platelet Count 319 Mean Platelet Volume 9.3 Neutrophils % 67.6 Lymphocytes % 22.4 Monocytes % 7.2 Eosinophils % 1.8 Basophils % 0.5 Nucleated Red Blood Cells % 0.0 Neutrophils # 6.6 Lymphocytes # 2.2 Monocytes # 0.7 Eosinophils # 0.2 Basophils # 0.1 Nucleated Red Blood Cells # 0.0 Sodium Level 141 Potassium Level 4.3 Chloride Level 101 Carbon Dioxide Level 29 Anion Gap 15 Blood Urea Nitrogen 57 H Creatinine 2.33 H Glucose Level 90 Calcium Level 9.5 Phosphorus Level 4.0 Magnesium Level 2.2 Test 05/07/17 08:59 05/07/17 09:41 05/07/17 12:35 Bedside Glucose 121 120 Prothrombin Time 12.5 Prothrombin Time Ratio 1.0 INR International Normalized Ratio 0.93 Activated Partial Thromboplast Time 30.3 Medications Medications Current Medications Ondansetron HCl (Zofran Inj) 4 mg Q6H PRN IV NAUSEA AND/OR VOMITING Last administered on 05/07/17 12:29; Admin Dose 4 MG; Start 03/30/17 at 03:30 Oxycodone/ Acetaminophen 1 tab 1 tab Q4H PRN PO PAIN Last administered on 05/06 20:46; Admin Dose 1 TAB; Start 03/30/17 at 06:00 Total Parenteral Nutrition (Tpn) 1,000 ml @ 70 mls/hr [id number] IV Last administered on 05/07/17 04:08; Admin Dose 70 MLS/HR; Start 03/31/17 at 15:00 ; Stop 05/07/17 at 17:00 Insulin Glargine (Lantus) 10 unit HS SC Last administered on 05/06/17 20:41; Admin Dose 10 UNIT; Start 04/01/17 at 21:00 Miscellaneous Information 1 ea NOTE XX ; Start 03/31/17 at 21:00 Glucose (Glutose) 15 gm Q15M PRN PO DECREASED GLUCOSE; Start 03/31/17 at 21:00 Glucose (Glutose) 22.5 gm Q15M PRN PO DECREASED GLUCOSE; Start 03/31/17 at 21: 00 Dextrose (D50w Syringe) 25 ml Q15M PRN IV DECREASED GLUCOSE; Start 03/31/17 at 21:00 Dextrose (D50w Syringe) 50 ml Q15M PRN IV DECREASED GLUCOSE; Start 03/31/17 at 21:00 Glucagon (Glucagen) 1 mg Q15M PRN IM DECREASED GLUCOSE; Start 03/31/17 at 21: 00 Glucose (Glutose) 15 gm Q15M PRN BUCCAL DECREASED GLUCOSE; Start 03/31/17 at 21:00 Diagnostic Test (Pha) (Accu-Chek) 1 ea 02 XX Last administered on 05/07/17 02: 19; Admin Dose 1 EA; Start 04/06/17 at 02:00 Ascorbic Acid (Vitamin C) 500 mg DAILY PO Last administered on 05/07/17 09:08 ; Admin Dose 500 MG; Start 04/11/17 at 09:00 Zinc Sulfate (Zinc Sulfate) 220 mg DAILY PO Last administered on 05/07/17 09: 08; Admin Dose 220 MG; Start 04/11/17 at 09:00 Fentanyl (Duragesic 25 Mcg/Hr Patch) 1 patch Q3D TRANSDERM Last administered on 05/05/17 18:47; Admin Dose 1 PATCH; Start 04/11/17 at 17:00 Loperamide HCl (Imodium Cap) 2 mg TID PO Last administered on 05/07/17 12:29; Admin Dose 2 MG; Start 04/15/17 at 13:00 Nystatin (Nystatin Powder) 1 applic PRN TOP Last administered on 04/25/17 18: 06; Admin Dose 1 APPLIC; Start 04/16/17 at 16:30 Acetaminophen (Tylenol Tab) 650 mg Q6H PRN PO PAIN AND OR ELEVATED TEMP Last administered on 04/20/17 22:42; Admin Dose 650 MG; Start 04/20/17 at 22:00 Lactobacillus Acidophilus 1 each 1 each BID PO Last administered on 05/07/17 09:09; Admin Dose 1 EACH; Start 04/21/17 at 21:00 Total Parenteral Nutrition (Tpn) 1,000 ml @ 155 mls/hr 21 IV ; Start 05/07/17 at 21:00 MARGOT WOMACK MD May 07, 2017 16:12
[2017-05-07] MEDS: HEPARIN 1000 UNITS/ML 10 ML INJ IV PRN (18:29)
[2017-05-07 19:25] VITALS: BP 100/58; RESP 20
[2017-05-07] MEDS: OXYCODONE/ACETAMINOPHEN (5/325) TAB PO PRN (21:01)
[2017-05-07] MEDS: INSULIN GLARGINE [LANtus] 3 ML PEN SC SCH (21:08)
[2017-05-08] MEDS: ACCUCHECK AT 2AM (Patients on SS coverage) XX SCH (01:25)
[2017-05-08 02:10] VITALS: BP 106/57; RESP 20
[2017-05-08] MEDS: HEPARIN 1000 UNITS/ML 10 ML INJ IV PRN (02:38)
[2017-05-08] MEDS: TPN 1,000 ML IV SCH ×2 (04:00→21:10)
[2017-05-08 06:08] LABS: BASOPHILS % 0.3 % (0.0-2.0); EOSINOPHILS # 0.2 10^3/ul (0.0-0.5); EOSINOPHILS % 2.5 % (0.0-7.0); HEMATOCRIT 30.1 % (42.0-52.0); HEMOGLOBIN 9.7 g/dl (14.0-18.0); LYMPHOCYTES # 2.4 10^3/ul (0.8-2.9); LYMPHOCYTES % 26.7 % (15.0-51.0); MEAN CORPUSCULAR HEMOGLOBIN 27.6 pg (29.0-33.0); MEAN CORPUSCULAR HGB CONC 32.2 g/dl (32.0-37.0); MEAN CORPUSCULAR VOLUME 85.5 fl (82.0-101.0); MEAN PLATELET VOLUME 9.5 fl (7.4-10.4); MONOCYTE # 0.7 10^3/ul (0.3-0.9); MONOCYTES % 8.4 % (0.0-11.0); NEUTROPHIL # 5.4 10^3/ul (1.6-7.5); NEUTROPHILS % 61.1 % (39.0-77.0); PLATELET COUNT 304 10^3/UL (140-415); RED BLOOD COUNT 3.52 10^6/ul (4.70-6.10); RED CELL DISTRIBUTION WIDTH 14.7 % (11.5-14.5); WHITE BLOOD COUNT 8.8 10^3/ul (4.8-10.8)
[2017-05-08 06:22] LABS: CALCIUM 9.9 mg/dl (8.4-10.2); CREATININE 2.16 mg/dl (0.61-1.24); POTASSIUM 4.6 mmol/L (3.5-5.1)
[2017-05-08 06:24] LABS: MAGNESIUM 2.2 mg/dl (1.7-2.5); PHOSPHORUS 4.2 mg/dl (2.5-4.9)
[2017-05-08] MEDS: Insulin NOVOLOG SS MODERATE Algorithm (SS with meals and bedtime) SC SCH ×4 (07:50→21:00)
[2017-05-08 08:00] VITALS: BP 95/54; RESP 17
[2017-05-08] MEDS: HEPARIN 25000 UNITS/250 ML 250 ML IV SCH (08:53)
[2017-05-08] MEDS: ZINC SULFATE 220 MG CAP PO SCH (08:54)
[2017-05-08] MEDS: LOPERAMIDE 2 MG CAP PO SCH ×3 (08:54→21:11)
[2017-05-08] MEDS: ASCORBIC ACID 500 MG TAB PO SCH (08:55)
[2017-05-08] MEDS: L ACIDOPHIL/B LACTIS/B LONGUM CAPSULE PO SCH ×2 (08:55→21:11)
[2017-05-08] MEDS: OXYCODONE/ACETAMINOPHEN (5/325) TAB PO PRN ×2 (09:10→21:12)
--- NOTE | 2017-05-08 11:48 | PN ---
Date/Time of Note Date/Time of Note DATE: 05/08/17 TIME: 11:44 Assessment/Plan VTE Prophylaxis VTE Prophylaxis Intervention: other (Factor Xa nhibitors.) Lines/Catheters IV [facility] ([facility] PICC Line Central line still needed: Yes Urinary Cath still in place: No Assessment/Plan Chief Complaint/Hosp Course 1. Acute nonoliguric kidney injury. -Monitor BUN/creatinine. -Use nephrotoxic drugs with caution. -Nephrology following. 2. 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 -Therapeutic anticoagulation. -Switch to oral anticoagulation. 3. S/P complicated UTI. -Off antibiotics. 4. Bladder cancer. -Status post radical cystoprostatectomy and creation of ileal conduit with colonic diversion for fistula formation. -Status post urology evaluation. 5. Status post perforated viscus repair complicated by intra-abdominal abscess requiring CT-guided drainage on previous admission. -Being followed by surgery. 6. Severe protein calorie malnutrition. -TPN. -High calorie diet. 7. Normocytic anemia. -Probably anemia of chronic disease. 9. Fluids, electrolytes, and nutrition. -TPN. -Mechanical soft diet. 10. Plan. -Switch the patient on oral anticoagulation (dose confirmed with pharmacy). -Discharge planning to home. Case discussed with Dr. Baez. Problems: Subjective 24 Hr Interval Summary Free Text/Dictation Continues to have right lower extremity pain. Exam/Review of Systems Vital Signs Vitals Vital Signs Date Time Temp Pulse Resp B/P Pulse Ox O2 Delivery O2 Flow Rate FiO2 05/08/17 08:00 98.4 73 17 95/54 100 Intake and Output 05/07/17 05/07/17 05/08/17 14:59 22:59 06:59 Intake Total 700 ml 853.25 ml 1771.5 ml Output Total 2650 ml 3400 ml Balance 700 ml -1796.75 ml -1628.5 ml Exam General:, Thin, frail looking 66 year-old male lying in bed in no apparent distress. HEENT: Normocephalic, atraumatic. Eyes: Anicteric sclerae, conjunctivae clear. ENT: Nasal septum midline, oral mucosa moist. Neck supple, no JVD noticed. Respiratory: Bilaterally diminished breath sounds. No use of accessory muscles of respiration. No adventitious breath sounds. Cardiovascular: S1, S2 heard. No murmurs or gallops. Abdomen: Soft, nontender, and nondistended. Ileostomy bud pink. Colostomy pink bud moist. Ileal conduit. Genitourinary: Deferred. Extremities: No cyanosis, no clubbing, no edema. Peripheral pulses palpable. Neurologic: Cranial nerves II through XII grossly intact. The patient is awake, alert, and oriented. Skin: Normal skin turgor. No skin rashes. Results Result Diagram: 05/08/17 0503 05/08/17 0504 Results 24 hrs Laboratory Tests Test 05/07/17 12:35 05/07/17 17:16 05/07/17 17:43 05/07/17 21:05 Bedside Glucose 120 117 113 Activated Partial Thromboplast Time 47.0 H Test 05/08/17 01:00 05/08/17 05:03 05/08/17 05:04 05/08/17 08:30 Activated Partial Thromboplast Time 53.5 H White Blood Count 8.8 Red Blood Count 3.52 L Hemoglobin 9.7 L Hematocrit 30.1 L Mean Corpuscular Volume 85.5 Mean Corpuscular Hemoglobin 27.6 L Mean Corpuscular Hemoglobin Concent 32.2 Red Cell Distribution Width 14.7 H Platelet Count 304 Mean Platelet Volume 9.5 Neutrophils % 61.1 Lymphocytes % 26.7 Monocytes % 8.4 Eosinophils % 2.5 Basophils % 0.3 Nucleated Red Blood Cells % 0.0 Neutrophils # 5.4 Lymphocytes # 2.4 Monocytes # 0.7 Eosinophils # 0.2 Basophils # 0.0 Nucleated Red Blood Cells # 0.0 Sodium Level 139 Potassium Level 4.6 Chloride Level 98 Carbon Dioxide Level 32 H Anion Gap 14 Blood Urea Nitrogen 63 H Creatinine 2.16 H Glucose Level 115 Calcium Level 9.9 Phosphorus Level 4.2 Magnesium Level 2.2 Bedside Glucose 130 Test 05/08/17 08:47 Activated Partial Thromboplast Time 67.2 H Medications Medications Current Medications Ondansetron HCl (Zofran Inj) 4 mg Q6H PRN IV NAUSEA AND/OR VOMITING Last administered on 05/07/17t 21:00; Admin Dose 4 MG; Start 03/30/17 at 03:30 Oxycodone/ Acetaminophen (Percocet (5/ 325)) 1 tab Q4H PRN PO PAIN Last administered on 05/08/17 09:10; Admin Dose 1 TAB; Start 03/30/17 at 06:00 Insulin Glargine (Lantus) 10 unit HS SC Last administered on 05/07/17 21:08; Admin Dose 10 UNIT; Start 04/01/17 at 21:00 Miscellaneous Information 1 ea NOTE XX ; Start 03/31/17 at 21:00 Glucose (Glutose) 15 gm Q15M PRN PO DECREASED GLUCOSE; Start 03/31/17 at 21:00 Glucose (Glutose) 22.5 gm Q15M PRN PO DECREASED GLUCOSE; Start 03/31/17 at 21: 00 Dextrose (D50w Syringe) 25 ml Q15M PRN IV DECREASED GLUCOSE; Start 03/31/17 at 21:00 Dextrose (D50w Syringe) 50 ml Q15M PRN IV DECREASED GLUCOSE; Start 03/31/17 at 21:00 Glucagon (Glucagen) 1 mg Q15M PRN IM DECREASED GLUCOSE; Start 03/31/17 at 21: 00 Glucose (Glutose) 15 gm Q15M PRN BUCCAL DECREASED GLUCOSE; Start 03/31/17 at 21:00 Diagnostic Test (Pha) (Accu-Chek) 1 ea 02 XX Last administered on 05/07/17 02: 19; Admin Dose 1 EA; Start 04/06/17 at 02:00 Ascorbic Acid (Vitamin C) 500 mg DAILY PO Last administered on 05/08/17 08:55 ; Admin Dose 500 MG; Start 04/11/17 at 09:00 Zinc Sulfate (Zinc Sulfate) 220 mg DAILY PO Last administered on 05/08/17 08: 54; Admin Dose 220 MG; Start 04/11/17 at 09:00 Fentanyl (Duragesic 25 Mcg/Hr Patch) 1 patch Q3D TRANSDERM Last administered on 05/05/17 18:47; Admin Dose 1 PATCH; Start 04/11/17 at 17:00 Loperamide HCl (Imodium Cap) 2 mg TID PO Last administered on 05/08/17 08:54; Admin Dose 2 MG; Start 04/15/17 at 13:00 Nystatin (Nystatin Powder) 1 applic PRN TOP Last administered on 04/25/17 18: 06; Admin Dose 1 APPLIC; Start 04/16/17 at 16:30 Acetaminophen (Tylenol Tab) 650 mg Q6H PRN PO PAIN AND OR ELEVATED TEMP Last administered on 04/20/17 22:42; Admin Dose 650 MG; Start 04/20/17 at 22:00 Lactobacillus Acidophilus 1 each 1 each BID PO Last administered on 05/08/17 08:55; Admin Dose 1 EACH; Start 04/21/17 at 21:00 Total Parenteral Nutrition 1,000 ml @ 155 mls/hr 21 IV Last administered on 21:08; Admin Dose 155 MLS/HR; Start 05/07/17 at 21:00 Total Parenteral Nutrition (Tpn) 1,000 ml @ 155 mls/hr 04 IV Last administered on 05/08/17 04:00; Admin Dose 155 MLS/HR; Start 05/08/17 at 04:00 BRENDA PETTIT NP May 08, 2017 11:48
--- NOTE | 2017-05-08 13:09 | CONS ---
Date/Time of Note Date/Time of Note DATE: 05/08/17 TIME: 13:09 Assessment/Plan Assessment/Plan Chief Complaint/Hosp Course SUBJECTIVE: No acute changes overnight, looks comfortable, no fevers PHYSICAL EXAMINATION: GENERAL: This is a cachectic, chronically ill-appearing, elderly, [place] man who is awake, in no distress. HEENT: Head atraumatic, normocephalic. Sclerae anicteric. Buccal mucosa dry. NECK: Supple. CHEST: Rise symmetrical. Breath sounds clear. HEART: S1, S2. ABDOMEN: Soft. Bowel tones present. ASSESSMENT: 1. S/p recurrent urinary tract infection. 2. History of bladder and prostate cancer, status post chemoradiation, cystoprostatectomy with urinary diversion and ileostomy conduit. 3. History of perforated viscus repair. 4. Acute renal failure. 5. Cachexia. 6. History of obstructive uropathy, status post bilateral JJ stent placement. PLAN: Clinically unchanged, off abx. DW staff Problems: Consultation Date/Type/Reason Admit Date/Time Mar 30, 2017 at 02:24 Initial Consult Date 04/01/17 Type of Consultation: ID Referring Provider: ALLISON HAYWARD Exam/Review of Systems Vital Signs Vitals Vital Signs Date Time Temp Pulse Resp B/P Pulse Ox O2 Delivery O2 Flow Rate FiO2 05/08/17 08:00 98.4 73 17 95/54 100 Intake and Output 05/07/17 05/07/17 05/08/17 15:00 23:00 07:00 Intake Total 700 ml 853.25 ml 1771.5 ml Output Total 2650 ml 3400 ml Balance 700 ml -1796.75 ml -1628.5 ml Results Result Diagram: 05/08/17 0503 05/08/17 0504 Results 24 hrs Laboratory Tests Test 05/07/17 17:16 05/07/17 17:43 05/07/17 21:05 05/08/17 01:00 Activated Partial Thromboplast Time 47.0 H 53.5 H Bedside Glucose 117 113 Test 05/08/17 05:03 05/08/17 05:04 05/08/17 08:30 05/08/17 08:47 White Blood Count 8.8 Red Blood Count 3.52 L Hemoglobin 9.7 L Hematocrit 30.1 L Mean Corpuscular Volume 85.5 Mean Corpuscular Hemoglobin 27.6 L Mean Corpuscular Hemoglobin Concent 32.2 Red Cell Distribution Width 14.7 H Platelet Count 304 Mean Platelet Volume 9.5 Neutrophils % 61.1 Lymphocytes % 26.7 Monocytes % 8.4 Eosinophils % 2.5 Basophils % 0.3 Nucleated Red Blood Cells % 0.0 Neutrophils # 5.4 Lymphocytes # 2.4 Monocytes # 0.7 Eosinophils # 0.2 Basophils # 0.0 Nucleated Red Blood Cells # 0.0 Sodium Level 139 Potassium Level 4.6 Chloride Level 98 Carbon Dioxide Level 32 H Anion Gap 14 Blood Urea Nitrogen 63 H Creatinine 2.16 H Glucose Level 115 Calcium Level 9.9 Phosphorus Level 4.2 Magnesium Level 2.2 Bedside Glucose 130 Activated Partial Thromboplast Time 67.2 H Test 05/08/17 12:45 Bedside Glucose 89 Medications Medications Current Medications Ondansetron HCl (Zofran Inj) 4 mg Q6H PRN IV NAUSEA AND/OR VOMITING Last administered on 05/07/17 21:00; Admin Dose 4 MG; Start 03/30/17 at 03:30 Oxycodone/ Acetaminophen (Percocet (5/ 325)) 1 tab Q4H PRN PO PAIN Last administered on 05/08/17 09:10; Admin Dose 1 TAB; Start 03/30/17 at 06:00 Insulin Glargine (Lantus) 10 unit HS SC Last administered on 05/07/17 21:08; Admin Dose 10 UNIT; Start 04/01/17 at 21:00 Miscellaneous Information 1 ea NOTE XX ; Start 03/31/17 at 21:00 Glucose (Glutose) 15 gm Q15M PRN PO DECREASED GLUCOSE; Start 03/31/17 at 21:00 Glucose (Glutose) 22.5 gm Q15M PRN PO DECREASED GLUCOSE; Start 03/31/17 at 21: 00 Dextrose (D50w Syringe) 25 ml Q15M PRN IV DECREASED GLUCOSE; Start 03/31/17 at 21:00 Dextrose (D50w Syringe) 50 ml Q15M PRN IV DECREASED GLUCOSE; Start 03/31/17 at 21:00 Glucagon (Glucagen) 1 mg Q15M PRN IM DECREASED GLUCOSE; Start 03/31/17 at 21: 00 Glucose (Glutose) 15 gm Q15M PRN BUCCAL DECREASED GLUCOSE; Start 03/31/17 at 21:00 Diagnostic Test (Pha) (Accu-Chek) 1 ea 02 XX Last administered on 05/07/17 02: 19; Admin Dose 1 EA; Start 04/06/17 at 02:00 Ascorbic Acid (Vitamin C) 500 mg DAILY PO Last administered on 05/08/17 08:55 ; Admin Dose 500 MG; Start 04/11/17 at 09:00 Zinc Sulfate (Zinc Sulfate) 220 mg DAILY PO Last administered on 05/08/17 08: 54; Admin Dose 220 MG; Start 04/11/17 at 09:00 Fentanyl (Duragesic 25 Mcg/Hr Patch) 1 patch Q3D TRANSDERM Last administered on 05/05/17 18:47; Admin Dose 1 PATCH; Start 04/11/17 at 17:00 Loperamide HCl (Imodium Cap) 2 mg TID PO Last administered on 05/08/17 12:43; Admin Dose 2 MG; Start 04/15/17 at 13:00 Nystatin (Nystatin Powder) 1 applic PRN TOP Last administered on 04/25/17 18: 06; Admin Dose 1 APPLIC; Start 04/16/17 at 16:30 Acetaminophen (Tylenol Tab) 650 mg Q6H PRN PO PAIN AND OR ELEVATED TEMP Last administered on 04/20/17 22:42; Admin Dose 650 MG; Start 04/20/17 at 22:00 Lactobacillus Acidophilus 1 each 1 each BID PO Last administered on 05/08/17 08:55; Admin Dose 1 EACH; Start 04/21/17 at 21:00 Total Parenteral Nutrition 1,000 ml @ 155 mls/hr 21 IV Last administered on 21:08; Admin Dose 155 MLS/HR; Start 05/07/17 at 21:00 Total Parenteral Nutrition (Tpn) 1,000 ml @ 155 mls/hr 04 IV Last administered on 05/08/17 04:00; Admin Dose 155 MLS/HR; Start 05/08/17 at 04:00 Apixaban (Eliquis) 10 mg BID PO ; Start 05/08/17 at 21:00 KING MARQUES NP May 08, 2017 13:09
[2017-05-08 14:00] VITALS: BP 111/60; RESP 18
--- NOTE | 2017-05-08 16:31 | CONS ---
Date/Time of Note Date/Time of Note DATE: 05/08/17 TIME: 16:30 Assessment/Plan Assessment/Plan Additional Assessment/Plan 1. acute kidney injury Non oliguric .2/2 ATN+ prerenal azotemia 2. H/o ESBL UTI 3.history of bladder cancer s/p TURBT, chemotherapy/radiation, urethral damage, chemo/radiation induced urinary and fecal incontinence. He underwent cystoprostatectomy with urinary diversion, ileal conduit, colonic diversion for fistula on last admission 4. Anemia of Chronic disease 5. Severe protein calorie malnutrition Plan: - IV ertapenem 1 gram IV daily , Cr slightly better today 2.13, K and other electrolytes stable - on TPN -will continue to follow up Consultation Date/Type/Reason Admit Date/Time Mar 30, 2017 at 02:24 Initial Consult Date 03/30/17 Type of Consultation: NEPHROLOGY Referring Provider: ALLISON HAYWARD 24 HR Interval Summary Free Text/Dictation Cr slightly better today Cr 2.13, BP stable Exam/Review of Systems Vital Signs Vitals Vital Signs Date Time Temp Pulse Resp B/P Pulse Ox O2 Delivery O2 Flow Rate FiO2 05/08/17 14:00 98.5 66 18 111/60 100 Intake and Output 05/07/17 05/07/17 05/08/17 15:00 23:00 07:00 Intake Total 700 ml 853.25 ml 1771.5 ml Output Total 2650 ml 3400 ml Balance 700 ml -1796.75 ml -1628.5 ml Exam Constitutional: weak. No acute distress. He is cachectic) Head: atraumatic, normocephalic Respiratory: clear to auscultation, normal air movement Cardiovascular: nl pulses, regular rate and rhythm Gastrointestinal: Urostomy, colostomy and ileal conduit) Extremities: normal pulses + PICC line in place , on TPN Results Result Diagram: 05/08/17 0503 05/08/17 0504 Results 24 hrs Laboratory Tests Test 05/07/17 17:16 05/07/17 17:43 05/07/17 21:05 05/08/17 01:00 Activated Partial Thromboplast Time 47.0 H 53.5 H Bedside Glucose 117 113 Test 05/08/17 05:03 05/08/17 05:04 05/08/17 08:30 05/08/17 08:47 White Blood Count 8.8 Red Blood Count 3.52 L Hemoglobin 9.7 L Hematocrit 30.1 L Mean Corpuscular Volume 85.5 Mean Corpuscular Hemoglobin 27.6 L Mean Corpuscular Hemoglobin Concent 32.2 Red Cell Distribution Width 14.7 H Platelet Count 304 Mean Platelet Volume 9.5 Neutrophils % 61.1 Lymphocytes % 26.7 Monocytes % 8.4 Eosinophils % 2.5 Basophils % 0.3 Nucleated Red Blood Cells % 0.0 Neutrophils # 5.4 Lymphocytes # 2.4 Monocytes # 0.7 Eosinophils # 0.2 Basophils # 0.0 Nucleated Red Blood Cells # 0.0 Sodium Level 139 Potassium Level 4.6 Chloride Level 98 Carbon Dioxide Level 32 H Anion Gap 14 Blood Urea Nitrogen 63 H Creatinine 2.16 H Glucose Level 115 Calcium Level 9.9 Phosphorus Level 4.2 Magnesium Level 2.2 Bedside Glucose 130 Activated Partial Thromboplast Time 67.2 H Test 05/08/17 12:45 05/08/17 15:38 Bedside Glucose 89 Activated Partial Thromboplast Time 66.4 H Medications Medications Current Medications Ondansetron HCl (Zofran Inj) 4 mg Q6H PRN IV NAUSEA AND/OR VOMITING Last administered on 05/07/17 21:00; Admin Dose 4 MG; Start 03/30/17 at 03:30 Oxycodone/ Acetaminophen (Percocet (5/ 325)) 1 tab Q4H PRN PO PAIN Last administered on 05/08/17 09:10; Admin Dose 1 TAB; Start 03/30/17 at 06:00 Insulin Glargine (Lantus) 10 unit HS SC Last administered on 05/07/17 21:08; Admin Dose 10 UNIT; Start 04/01/17 at 21:00 Miscellaneous Information 1 ea NOTE XX ; Start 03/31/17 at 21:00 Glucose (Glutose) 15 gm Q15M PRN PO DECREASED GLUCOSE; Start 03/31/17 at 21:00 Glucose (Glutose) 22.5 gm Q15M PRN PO DECREASED GLUCOSE; Start 03/31/17 at 21: 00 Dextrose (D50w Syringe) 25 ml Q15M PRN IV DECREASED GLUCOSE; Start 03/31/17 at 21:00 Dextrose (D50w Syringe) 50 ml Q15M PRN IV DECREASED GLUCOSE; Start 03/31/17 at 21:00 Glucagon (Glucagen) 1 mg Q15M PRN IM DECREASED GLUCOSE; Start 03/31/17 at 21: 00 Glucose (Glutose) 15 gm Q15M PRN BUCCAL DECREASED GLUCOSE; Start 03/31/17 at 21:00 Diagnostic Test (Pha) (Accu-Chek) 1 ea 02 XX Last administered on 05/07/17 02: 19; Admin Dose 1 EA; Start 04/06/17 at 02:00 Ascorbic Acid (Vitamin C) 500 mg DAILY PO Last administered on 05/08/17 08:55 ; Admin Dose 500 MG; Start 04/11/17 at 09:00 Zinc Sulfate (Zinc Sulfate) 220 mg DAILY PO Last administered on 05/08/17 08: 54; Admin Dose 220 MG; Start 04/11/17 at 09:00 Fentanyl (Duragesic 25 Mcg/Hr Patch) 1 patch Q3D TRANSDERM Last administered on 05/05/17 18:47; Admin Dose 1 PATCH; Start 04/11/17 at 17:00 Loperamide HCl (Imodium Cap) 2 mg TID PO Last administered on 05/08/17 12:43; Admin Dose 2 MG; Start 04/15/17 at 13:00 Nystatin (Nystatin Powder) 1 applic PRN TOP Last administered on 04/25/17 18: 06; Admin Dose 1 APPLIC; Start 04/16/17 at 16:30 Acetaminophen (Tylenol Tab) 650 mg Q6H PRN PO PAIN AND OR ELEVATED TEMP Last administered on 04/20/17 22:42; Admin Dose 650 MG; Start 04/20/17 at 22:00 Lactobacillus Acidophilus 1 each 1 each BID PO Last administered on 05/08/17 08:55; Admin Dose 1 EACH; Start 04/21/17 at 21:00 Total Parenteral Nutrition 1,000 ml @ 155 mls/hr 21 IV Last administered on 21:08; Admin Dose 155 MLS/HR; Start 05/07/17 at 21:00 Total Parenteral Nutrition (Tpn) 1,000 ml @ 155 mls/hr 04 IV Last administered on 05/08/17 04:00; Admin Dose 155 MLS/HR; Start 05/08/17 at 04:00 Apixaban (Eliquis) 10 mg BID PO ; Start 05/08/17 at 21:00 MARGOT WOMACK MD May 08, 2017 16:31
--- NOTE | 2017-05-08 17:19 | PN ---
Date/Time of Note Date/Time of Note DATE: 05/08/17 TIME: 17:15 Assessment/Plan Lines/Catheters IV Catheter Type (from [facility]): PICC Line Tomas in Place (from [facility]): No Assessment/Plan Chief Complaint/Hosp Course 1. Multiple ostomies and ileal conduit: all ostomies pink and moist; s/p multiple Perforated viscous w small bowel proximal looped ostomy (minimum 6 month wait prior to considering attempting abdominal re-exploration) -continue ostomy care -continue oral feed and supplements -oral diet as tolerated, encourage supplements -oob/ambulate -TPN-started on cyclic tpn per outer diameter technician recs 2. UTI (polymicrobial, complicated)pink with mucous urine, cultures noted; s/p abx -frequent bladder emptying/cath care -urology 3. Malnutrition: tolerating solid diet;refusing supplements -continue tpn; started on cyclic tpn per outer diameter technician recs -vitamins, probiotics, and nutritional supplements- started nutrifiber -encourage supplements -hopefully wean off tpn -antimotility agent; oral narcotics 4. MANA: cr improving -judicious fluids -limit nephrotoxic meds -per renal 5. Bladder cancer: s/p chemo/radiation, s/p cystoprostatectomy with urinary diversion -per oncology/urology 6. Normocytic hypochromic anemia: no overt bleed noted -monitor -transfuse as needed -further workup per medical team 7. Pelvic pain:on fentanyl patch and po narcotics; improved -pain management Thank you. Patient seen and examined in collaboration with Dr. Bang Ross Problems: Subjective 24 Hr Interval Summary Started on heparin drip and cyclic tpn. Creatinine improving. No fevers, chills , sob, congested cough, cp, palpitations, craig, dizziness, n/v/d/dysuria. Exam/Review of Systems Vital Signs Vitals Vital Signs Date Time Temp Pulse Resp B/P Pulse Ox O2 Delivery O2 Flow Rate FiO2 05/08/17 14:00 98.5 66 18 111/60 100 Intake and Output 05/07/17 05/07/17 05/08/17 15:00 23:00 07:00 Intake Total 700 ml 853.25 ml 1771.5 ml Output Total 2650 ml 3400 ml Balance 700 ml -1796.75 ml -1628.5 ml Exam Free Text/Dictation Constitutional: alert, oriented Psych: nl mood Head: atraumatic, normocephalic Eyes: nl lids, nl sclera ENMT: mucosa pink and moist, nl nasal mucosa & septum Neck: non-tender, supple Respiratory: normal air movement Cardiovascular: nl pulses, regular rate and rhythm Gastrointestinal: non-tender, other (ileostomy, colostomy,ileal conduit -all ostomies pink and moist), soft, Genitourinary - Male: nl penis, nl scrotum; ileal conduit with clear/light pink urine Musculoskeletal: nl extremities to inspection, nl gait and stance Extremities: normal pulses, No edema Neurological: nl mental status, nl speech Skin: nl turgor, rash or lesions; lower abdomen wound healed Results Result Diagram: 05/08/17 0503 05/08/17 0504 IFTIKHAR ROBERTSON NP May 08, 2017 17:19
[2017-05-08 20:04] VITALS: BP 100/56; PULSE 78; RESP 18
[2017-05-08] MEDS: APIXABAN 5 MG TABLET PO SCH (21:10)
[2017-05-08] MEDS: INSULIN GLARGINE [LANtus] 3 ML PEN SC SCH (21:15)
[2017-05-08] MEDS: ONDANSETRON 4 MG INJ IV PRN (21:38)
[2017-05-09] MEDS: ACCUCHECK AT 2AM (Patients on SS coverage) XX SCH (01:55)
[2017-05-09] MEDS: TPN 1,000 ML IV SCH ×2 (04:47→20:33)
[2017-05-09 05:33] LABS: BASOPHILS % 0.5 % (0.0-2.0); EOSINOPHILS # 0.1 10^3/ul (0.0-0.5); EOSINOPHILS % 1.9 % (0.0-7.0); HEMATOCRIT 29.8 % (42.0-52.0); HEMOGLOBIN 9.5 g/dl (14.0-18.0); LYMPHOCYTES % 26.3 % (15.0-51.0); MEAN CORPUSCULAR HEMOGLOBIN 27.7 pg (29.0-33.0); MEAN CORPUSCULAR HGB CONC 31.9 g/dl (32.0-37.0); MEAN CORPUSCULAR VOLUME 86.9 fl (82.0-101.0); MEAN PLATELET VOLUME 9.2 fl (7.4-10.4); MONOCYTE # 0.6 10^3/ul (0.3-0.9); MONOCYTES % 8.2 % (0.0-11.0); NEUTROPHIL # 4.6 10^3/ul (1.6-7.5); NEUTROPHILS % 62.3 % (39.0-77.0); PLATELET COUNT 295 10^3/UL (140-415); RED BLOOD COUNT 3.43 10^6/ul (4.70-6.10); RED CELL DISTRIBUTION WIDTH 15.1 % (11.5-14.5); WHITE BLOOD COUNT 7.4 10^3/ul (4.8-10.8)
[2017-05-09 05:55] LABS: CALCIUM 9.5 mg/dl (8.4-10.2); CREATININE 2.1 mg/dl (0.61-1.24); POTASSIUM 4.5 mmol/L (3.5-5.1)
[2017-05-09 06:02] LABS: MAGNESIUM 2.3 mg/dl (1.7-2.5); PHOSPHORUS 5.4 mg/dl (2.5-4.9)
[2017-05-09 07:48] VITALS: BP 102/57; RESP 18
[2017-05-09] MEDS: Insulin NOVOLOG SS MODERATE Algorithm (SS with meals and bedtime) SC SCH ×4 (07:50→20:29)
--- NOTE | 2017-05-09 08:35 | PN ---
Date/Time of Note Date/Time of Note DATE: 05/09/17 TIME: 08:33 Assessment/Plan VTE Prophylaxis VTE Prophylaxis Intervention: other (Factor Xa inhibitors.) Lines/Catheters IV C[facility]ter Type (from [facility]): PICC Line Central line still needed: Yes Urinary Cath still in place: No Assessment/Plan Chief Complaint/Hosp Course 1. Acute nonoliguric kidney injury. -Monitor BUN/creatinine. -Use nephrotoxic drugs with caution. -Nephrology following. 2. 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 -Therapeutic anticoagulation with factor Xa inhibitors. -No interventions as per Vacular Surgery. 3. S/P complicated UTI. -Off antibiotics. 4. Bladder cancer. -Status post radical cystoprostatectomy and creation of ileal conduit with colonic diversion for fistula formation. -Status post urology evaluation. 5. Status post perforated viscus repair complicated by intra-abdominal abscess requiring CT-guided drainage on previous admission. -Being followed by surgery. 6. Severe protein calorie malnutrition. -TPN. -High calorie diet. 7. Normocytic anemia. -Probably anemia of chronic disease. 9. Fluids, electrolytes, and nutrition. -TPN. -Mechanical soft diet. 10. Plan. -On oral anticoagulation with factor Xa inhibitors (dose confirmed with pharmacy). -Discharge planning to home. Case discussed with Dr. Baez. Problems: Subjective 24 Hr Interval Summary Free Text/Dictation The patient remains afebrile. Exam/Review of Systems Vital Signs Vitals Vital Signs Date Time Temp Pulse Resp B/P Pulse Ox O2 Delivery O2 Flow Rate FiO2 05/09/17 07:48 98.4 55 18 102/57 99 05/08/17 20:04 Room Air Intake and Output 05/08/17 05/08/17 05/09/17 15:00 23:00 07:00 Intake Total 885 ml 1276.25 ml 1800 ml Output Total 2500 ml 1800 ml Balance 885 ml -1223.75 ml 0 ml Exam General:, Thin, frail looking 66 year-old male lying in bed in no apparent distress. HEENT: Normocephalic, atraumatic. Eyes: Anicteric sclerae, conjunctivae clear. ENT: Nasal septum midline, oral mucosa moist. Neck supple, no JVD noticed. Respiratory: Bilaterally diminished breath sounds. No use of accessory muscles of respiration. No adventitious breath sounds. Cardiovascular: S1, S2 heard. No murmurs or gallops. Abdomen: Soft, nontender, and nondistended. Ileostomy bud pink. Colostomy pink bud moist. Ileal conduit. Genitourinary: Deferred. Extremities: No cyanosis, no clubbing, no edema. Peripheral pulses palpable. Neurologic: Cranial nerves II through XII grossly intact. The patient is awake, alert, and oriented. Skin: Normal skin turgor. No skin rashes. Results Result Diagram: 05/09/17 0441 05/09/17 0441 Results 24 hrs Laboratory Tests Test 05/08/17 08:47 05/08/17 12:45 05/08/17 15:38 05/08/17 17:35 Activated Partial Thromboplast Time 67.2 H 66.4 H Bedside Glucose 89 97 Test 05/08/17 21:02 05/09/17 04:41 Bedside Glucose 106 White Blood Count 7.4 Red Blood Count 3.43 L Hemoglobin 9.5 L Hematocrit 29.8 L Mean Corpuscular Volume 86.9 Mean Corpuscular Hemoglobin 27.7 L Mean Corpuscular Hemoglobin Concent 31.9 L Red Cell Distribution Width 15.1 H Platelet Count 295 Mean Platelet Volume 9.2 Neutrophils % 62.3 Lymphocytes % 26.3 Monocytes % 8.2 Eosinophils % 1.9 Basophils % 0.5 Nucleated Red Blood Cells % 0.0 Neutrophils # 4.6 Lymphocytes # 2.0 Monocytes # 0.6 Eosinophils # 0.1 Basophils # 0.0 Nucleated Red Blood Cells # 0.0 Sodium Level 141 Potassium Level 4.5 Chloride Level 99 Carbon Dioxide Level 31 Anion Gap 16 Blood Urea Nitrogen 68 H Creatinine 2.10 H Glucose Level 114 Calcium Level 9.5 Phosphorus Level 5.4 H Magnesium Level 2.3 Medications Medications Current Medications Ondansetron HCl (Zofran Inj) 4 mg Q6H PRN IV NAUSEA AND/OR VOMITING Last administered on 05/08/17 21:38; Admin Dose 4 MG; Start 03/30/17 at 03:30 Oxycodone/ Acetaminophen (Percocet (5/ 325)) 1 tab Q4H PRN PO PAIN Last administered on 05/08/17 21:12; Admin Dose 1 TAB; Start 03/30/17 at 06:00 Insulin Glargine (Lantus) 10 unit HS SC Last administered on 05/08/17 21:15; Admin Dose 10 UNIT; Start 04/01/17 at 21:00 Miscellaneous Information 1 ea NOTE XX ; Start 03/31/17 at 21:00 Glucose (Glutose) 15 gm Q15M PRN PO DECREASED GLUCOSE; Start 03/31/17 at 21:00 Glucose (Glutose) 22.5 gm Q15M PRN PO DECREASED GLUCOSE; Start 03/31/17 at 21: 00 Dextrose (D50w Syringe) 25 ml Q15M PRN IV DECREASED GLUCOSE; Start 03/31/17 at 21:00 Dextrose (D50w Syringe) 50 ml Q15M PRN IV DECREASED GLUCOSE; Start 03/31/17 at 21:00 Glucagon (Glucagen) 1 mg Q15M PRN IM DECREASED GLUCOSE; Start 03/31/17 at 21: 00 Glucose (Glutose) 15 gm Q15M PRN BUCCAL DECREASED GLUCOSE; Start 03/31/17 at 21:00 Diagnostic Test (Pha) (Accu-Chek) 1 ea 02 XX Last administered on 05/07/17 02: 19; Admin Dose 1 EA; Start 04/06/17 at 02:00 Ascorbic Acid (Vitamin C) 500 mg DAILY PO Last administered on 05/08/17 08:55 ; Admin Dose 500 MG; Start 04/11/17 at 09:00 Zinc Sulfate (Zinc Sulfate) 220 mg DAILY PO Last administered on 05/08/17 08: 54; Admin Dose 220 MG; Start 04/11/17 at 09:00 Fentanyl (Duragesic 25 Mcg/Hr Patch) 1 patch Q3D TRANSDERM Last administered on 05/08/17 18:44; Admin Dose 1 PATCH; Start 04/11/17 at 17:00 Loperamide HCl (Imodium Cap) 2 mg TID PO Last administered on 05/08/17 21:11; Admin Dose 2 MG; Start 04/15/17 at 13:00 Nystatin (Nystatin Powder) 1 applic PRN TOP Last administered on 04/25/17 18: 06; Admin Dose 1 APPLIC; Start 04/16/17 at 16:30 Acetaminophen (Tylenol Tab) 650 mg Q6H PRN PO PAIN AND OR ELEVATED TEMP Last administered on 04/20/17 22:42; Admin Dose 650 MG; Start 04/20/17 at 22:00 Lactobacillus Acidophilus 1 each 1 each BID PO Last administered on 05/08/17 21:11; Admin Dose 1 EACH; Start 04/21/17 at 21:00 Total Parenteral Nutrition 1,000 ml @ 155 mls/hr 21 IV Last administered on 21:10; Admin Dose 155 MLS/HR; Start 05/07/17 at 21:00 Total Parenteral Nutrition (Tpn) 1,000 ml @ 155 mls/hr 04 IV Last administered on 05/09/17 04:47; Admin Dose 155 MLS/HR; Start 05/08/17 at 04:00 Apixaban (Eliquis) 10 mg BID PO Last administered on 05/08/17 21:10; Admin Dose 10 MG; Start 05/08/17 at 21:00 BRENDA PETTIT NP May 09, 2017 08:35
[2017-05-09] MEDS: LOPERAMIDE 2 MG CAP PO SCH ×3 (08:40→20:28)
[2017-05-09] MEDS: ZINC SULFATE 220 MG CAP PO SCH (08:40)
[2017-05-09] MEDS: ASCORBIC ACID 500 MG TAB PO SCH (08:40)
[2017-05-09] MEDS: L ACIDOPHIL/B LACTIS/B LONGUM CAPSULE PO SCH ×2 (08:40→20:28)
[2017-05-09] MEDS: APIXABAN 5 MG TABLET PO SCH ×2 (08:41→20:33)
[2017-05-09 14:00] VITALS: BP 100/57; RESP 18
--- NOTE | 2017-05-09 14:48 | PN ---
Date/Time of Note Date/Time of Note DATE: 05/09/17 TIME: 14:40 Assessment/Plan Lines/Catheters IV Catheter Type (from [facility]): PICC Line Tomas in Place (from [facility]): No Assessment/Plan Chief Complaint/Hosp Course 1. Multiple ostomies and ileal conduit: all ostomies pink and moist; s/p multiple Perforated viscous w small bowel proximal looped ostomy (minimum 6 month wait prior to considering attempting abdominal re-exploration) -continue ostomy care -continue oral feed and supplements -oral diet as tolerated, encourage supplements -oob/ambulate -TPN-cyclic tpn per slab installer recs 2. UTI (polymicrobial, complicated)pink with mucous urine, cultures noted; s/p abx -frequent bladder emptying/cath care -urology 3. Malnutrition: tolerating solid diet;refusing supplements -continue tpn; started on cyclic tpn per slab installer recs -vitamins, probiotics, and nutritional supplements- started nutrifiber -encourage supplements -hopefully wean off tpn -antimotility agent; oral narcotics 4. MANA: cr improving -judicious fluids -limit nephrotoxic meds -per renal 5. Bladder cancer: s/p chemo/radiation, s/p cystoprostatectomy with urinary diversion -per oncology/urology 6. Normocytic hypochromic anemia: no overt bleed noted -monitor -transfuse as needed -further workup per medical team 7. Pelvic pain:on fentanyl patch and po narcotics; improved -pain management 8. Hematuria: -medical management Thank you. Patient seen and examined in collaboration with Dr. Bang Ross Problems: Subjective 24 Hr Interval Summary Hematuria. Heparin drip stopped. Feels ok. All ostomies pink and moist. No fevers, chills, sob, congested cough, cp, palpitations, craig, dizziness, n/v/d/ dysuria. Exam/Review of Systems Vital Signs Vitals Vital Signs Date Time Temp Pulse Resp B/P Pulse Ox O2 Delivery O2 Flow Rate FiO2 05/09/17 07:48 98.4 55 18 102/57 99 05/08/17 20:04 Room Air Intake and Output 05/08/17 05/08/17 05/09/17 15:00 23:00 07:00 Intake Total 885 ml 1276.25 ml 1800 ml Output Total 2500 ml 1800 ml Balance 885 ml -1223.75 ml 0 ml Exam Free Text/Dictation Constitutional: alert, oriented Psych: nl mood Head: atraumatic, normocephalic Eyes: nl lids, nl sclera ENMT: mucosa pink and moist, nl nasal mucosa & septum Neck: non-tender, supple Respiratory: normal air movement Cardiovascular: nl pulses, regular rate and rhythm Gastrointestinal: non-tender, other (ileostomy, colostomy,ileal conduit -all ostomies pink and moist), soft, Genitourinary - Male: nl penis, nl scrotum; ileal conduit with clear/light pink urine Musculoskeletal: nl extremities to inspection, nl gait and stance Extremities: normal pulses, No edema Neurological: nl mental status, nl speech Skin: nl turgor, rash or lesions; lower abdomen wound healed Results Result Diagram: 05/09/17 0441 05/09/17 0441 IFTIKHAR ROBERTSON NP May 09, 2017 14:48
[2017-05-09] MEDS: OXYCODONE/ACETAMINOPHEN (5/325) TAB PO PRN ×3 (16:53→20:29)
--- NOTE | 2017-05-09 19:22 | CONS ---
Date/Time of Note Date/Time of Note DATE: 05/09/17 TIME: 19:21 Assessment/Plan Assessment/Plan Chief Complaint/Hosp Course SUBJECTIVE: No acute changes overnight, looks comfortable, no fevers PHYSICAL EXAMINATION: GENERAL: This is a cachectic, chronically ill-appearing, elderly, [place] man who is awake, in no distress. HEENT: Head atraumatic, normocephalic. Sclerae anicteric. Buccal mucosa dry. NECK: Supple. CHEST: Rise symmetrical. Breath sounds clear. HEART: S1, S2. ABDOMEN: Soft. Bowel tones present. ASSESSMENT: 1. S/p recurrent urinary tract infection. 2. History of bladder and prostate cancer, status post chemoradiation, cystoprostatectomy with urinary diversion and ileostomy conduit. 3. History of perforated viscus repair. 4. Acute renal failure. 5. Cachexia. 6. History of obstructive uropathy, status post bilateral JJ stent placement. PLAN: Clinically unchanged, off abx. DW staff Problems: Consultation Date/Type/Reason Admit Date/Time Mar 30, 2017 at 02:24 Initial Consult Date 04/01/17 Type of Consultation: ID Referring Provider: ALLISON HAYWARD Exam/Review of Systems Vital Signs Vitals Vital Signs Date Time Temp Pulse Resp B/P Pulse Ox O2 Delivery O2 Flow Rate FiO2 05/09/17 14:00 98.0 69 18 100/57 100 05/08/17 20:04 Room Air Intake and Output 05/08/17 05/08/17 05/09/17 15:00 23:00 07:00 Intake Total 885 ml 1276.25 ml 1800 ml Output Total 2500 ml 1800 ml Balance 885 ml -1223.75 ml 0 ml Results Result Diagram: 05/09/17 0441 05/09/17 0441 Results 24 hrs Laboratory Tests Test 05/08/17 21:02 05/09/17 04:41 05/09/17 08:38 05/09/17 12:39 Bedside Glucose 106 109 108 White Blood Count 7.4 Red Blood Count 3.43 L Hemoglobin 9.5 L Hematocrit 29.8 L Mean Corpuscular Volume 86.9 Mean Corpuscular Hemoglobin 27.7 L Mean Corpuscular Hemoglobin Concent 31.9 L Red Cell Distribution Width 15.1 H Platelet Count 295 Mean Platelet Volume 9.2 Neutrophils % 62.3 Lymphocytes % 26.3 Monocytes % 8.2 Eosinophils % 1.9 Basophils % 0.5 Nucleated Red Blood Cells % 0.0 Neutrophils # 4.6 Lymphocytes # 2.0 Monocytes # 0.6 Eosinophils # 0.1 Basophils # 0.0 Nucleated Red Blood Cells # 0.0 Sodium Level 141 Potassium Level 4.5 Chloride Level 99 Carbon Dioxide Level 31 Anion Gap 16 Blood Urea Nitrogen 68 H Creatinine 2.10 H Glucose Level 114 Calcium Level 9.5 Phosphorus Level 5.4 H Magnesium Level 2.3 Test 05/09/17 18:00 Bedside Glucose 142 Medications Medications Current Medications Ondansetron HCl (Zofran Inj) 4 mg Q6H PRN IV NAUSEA AND/OR VOMITING Last administered on 05/08/17 21:38; Admin Dose 4 MG; Start 03/30/17 at 03:30 Oxycodone/ Acetaminophen (Percocet (5/ 325)) 1 tab Q4H PRN PO PAIN Last administered on 05/09/17 16:53; Admin Dose 1 TAB; Start 03/30/17 at 06:00 Insulin Glargine (Lantus) 10 unit HS SC Last administered on 05/08/17 21:15; Admin Dose 10 UNIT; Start 04/01/17 at 21:00 Miscellaneous Information 1 ea NOTE XX ; Start 03/31/17 at 21:00 Glucose (Glutose) 15 gm Q15M PRN PO DECREASED GLUCOSE; Start 03/31/17 at 21:00 Glucose (Glutose) 22.5 gm Q15M PRN PO DECREASED GLUCOSE; Start 03/31/17 at 21: 00 Dextrose (D50w Syringe) 25 ml Q15M PRN IV DECREASED GLUCOSE; Start 03/31/17 at 21:00 Dextrose (D50w Syringe) 50 ml Q15M PRN IV DECREASED GLUCOSE; Start 03/31/17 at 21:00 Glucagon (Glucagen) 1 mg Q15M PRN IM DECREASED GLUCOSE; Start 03/31/17 at 21: 00 Glucose (Glutose) 15 gm Q15M PRN BUCCAL DECREASED GLUCOSE; Start 03/31/17 at 21:00 Diagnostic Test (Pha) (Accu-Chek) 1 ea 02 XX Last administered on 05/07/17 02: 19; Admin Dose 1 EA; Start 04/06/17 at 02:00 Ascorbic Acid (Vitamin C) 500 mg DAILY PO Last administered on 05/09/17 08:40 ; Admin Dose 500 MG; Start 04/11/17 at 09:00 Zinc Sulfate (Zinc Sulfate) 220 mg DAILY PO Last administered on 05/09/17 08: 40; Admin Dose 220 MG; Start 04/11/17 at 09:00 Fentanyl (Duragesic 25 Mcg/Hr Patch) 1 patch Q3D TRANSDERM Last administered on 05/08/17 18:44; Admin Dose 1 PATCH; Start 04/11/17 at 17:00 Loperamide HCl (Imodium Cap) 2 mg TID PO Last administered on 05/09/17 12:37; Admin Dose 2 MG; Start 04/15/17 at 13:00 Nystatin (Nystatin Powder) 1 applic PRN TOP Last administered on 04/25/17 18: 06; Admin Dose 1 APPLIC; Start 04/16/17 at 16:30 Acetaminophen (Tylenol Tab) 650 mg Q6H PRN PO PAIN AND OR ELEVATED TEMP Last administered on 04/20/17 22:42; Admin Dose 650 MG; Start 04/20/17 at 22:00 Lactobacillus Acidophilus 1 each 1 each BID PO Last administered on 05/09/17 08:40; Admin Dose 1 EACH; Start 04/21/17 at 21:00 Total Parenteral Nutrition 1,000 ml @ 155 mls/hr 21 IV Last administered on 21:10; Admin Dose 155 MLS/HR; Start 05/07/17 at 21:00 Total Parenteral Nutrition (Tpn) 1,000 ml @ 155 mls/hr 04 IV Last administered on 05/09/17 04:47; Admin Dose 155 MLS/HR; Start 05/08/17 at 04:00 Apixaban (Eliquis) 10 mg BID PO Last administered on 05/09/17 08:41; Admin Dose 10 MG; Start 05/08/17 at 21:00; Stop 05/15/17 at 09:01 Apixaban (Eliquis) 5 mg BID PO ; Start 05/15/17 at 21:00 KING MARQUES NP May 09, 2017 19:22
[2017-05-09 20:15] VITALS: BP 99/55; RESP 16
--- NOTE | 2017-05-09 20:25 | CONS ---
Date/Time of Note Date/Time of Note DATE: 05/09/17 TIME: 20:24 Assessment/Plan Assessment/Plan Additional Assessment/Plan 1. acute kidney injury Non oliguric .2/2 ATN+ prerenal azotemia 2. H/o ESBL UTI 3.history of bladder cancer s/p TURBT, chemotherapy/radiation, urethral damage, chemo/radiation induced urinary and fecal incontinence. He underwent cystoprostatectomy with urinary diversion, ileal conduit, colonic diversion for fistula on last admission 4. Anemia of Chronic disease 5. Severe protein calorie malnutrition Plan: - IV ertapenem 1 gram IV daily , Cr 2.10 today, K and other electrolytes stable - on TPN -will continue to follow up Consultation Date/Type/Reason Admit Date/Time Mar 30, 2017 at 02:24 Initial Consult Date 03/30/17 Type of Consultation: NEPHROLOGY Referring Provider: ALLISON HAYWARD Exam/Review of Systems Vital Signs Vitals Vital Signs Date Time Temp Pulse Resp B/P Pulse Ox O2 Delivery O2 Flow Rate FiO2 05/09/17 20:15 98.6 72 16 99/55 99 05/08/17 20:04 Room Air Intake and Output 05/08/17 05/08/17 05/09/17 15:00 23:00 07:00 Intake Total 885 ml 1276.25 ml 1800 ml Output Total 2500 ml 1800 ml Balance 885 ml -1223.75 ml 0 ml Exam GENERAL: This is a cachectic, chronically ill-appearing, elderly, [place] man who is awake, in no distress. HEENT: Head atraumatic, normocephalic. Sclerae anicteric. Buccal mucosa dry. NECK: Supple. CHEST: Rise symmetrical. Breath sounds clear. HEART: S1, S2. ABDOMEN: Soft. Bowel tones present. Results Result Diagram: 05/09/17 0441 05/09/17 0441 Results 24 hrs Laboratory Tests Test 05/08/17 21:02 05/09/17 04:41 05/09/17 08:38 05/09/17 12:39 Bedside Glucose 106 109 108 White Blood Count 7.4 Red Blood Count 3.43 L Hemoglobin 9.5 L Hematocrit 29.8 L Mean Corpuscular Volume 86.9 Mean Corpuscular Hemoglobin 27.7 L Mean Corpuscular Hemoglobin Concent 31.9 L Red Cell Distribution Width 15.1 H Platelet Count 295 Mean Platelet Volume 9.2 Neutrophils % 62.3 Lymphocytes % 26.3 Monocytes % 8.2 Eosinophils % 1.9 Basophils % 0.5 Nucleated Red Blood Cells % 0.0 Neutrophils # 4.6 Lymphocytes # 2.0 Monocytes # 0.6 Eosinophils # 0.1 Basophils # 0.0 Nucleated Red Blood Cells # 0.0 Sodium Level 141 Potassium Level 4.5 Chloride Level 99 Carbon Dioxide Level 31 Anion Gap 16 Blood Urea Nitrogen 68 H Creatinine 2.10 H Glucose Level 114 Calcium Level 9.5 Phosphorus Level 5.4 H Magnesium Level 2.3 Test 05/09/17 18:00 Bedside Glucose 142 Medications Medications Current Medications Ondansetron HCl (Zofran Inj) 4 mg Q6H PRN IV NAUSEA AND/OR VOMITING Last administered on 05/08/17 21:38; Admin Dose 4 MG; Start 03/30/17 at 03:30 Oxycodone/ Acetaminophen (Percocet (5/ 325)) 1 tab Q4H PRN PO PAIN Last administered on 05/09/17 16:53; Admin Dose 1 TAB; Start 03/30/17 at 06:00 Insulin Glargine (Lantus) 10 unit HS SC Last administered on 05/08/17 21:15; Admin Dose 10 UNIT; Start 04/01/17 at 21:00 Miscellaneous Information 1 ea NOTE XX ; Start 03/31/17 at 21:00 Glucose (Glutose) 15 gm Q15M PRN PO DECREASED GLUCOSE; Start 03/31/17 at 21:00 Glucose (Glutose) 22.5 gm Q15M PRN PO DECREASED GLUCOSE; Start 03/31/17 at 21: 00 Dextrose (D50w Syringe) 25 ml Q15M PRN IV DECREASED GLUCOSE; Start 03/31/17 at 21:00 Dextrose (D50w Syringe) 50 ml Q15M PRN IV DECREASED GLUCOSE; Start 03/31/17 at 21:00 Glucagon (Glucagen) 1 mg Q15M PRN IM DECREASED GLUCOSE; Start 03/31/17 at 21: 00 Glucose (Glutose) 15 gm Q15M PRN BUCCAL DECREASED GLUCOSE; Start 03/31/17 at 21:00 Diagnostic Test (Pha) (Accu-Chek) 1 ea 02 XX Last administered on 05/07/17 02: 19; Admin Dose 1 EA; Start 04/06/17 at 02:00 Ascorbic Acid (Vitamin C) 500 mg DAILY PO Last administered on 05/09/17 08:40 ; Admin Dose 500 MG; Start 04/11/17 at 09:00 Zinc Sulfate (Zinc Sulfate) 220 mg DAILY PO Last administered on 05/09/17 08: 40; Admin Dose 220 MG; Start 04/11/17 at 09:00 Fentanyl (Duragesic 25 Mcg/Hr Patch) 1 patch Q3D TRANSDERM Last administered on 05/08/17 18:44; Admin Dose 1 PATCH; Start 04/11/17 at 17:00 Loperamide HCl (Imodium Cap) 2 mg TID PO Last administered on 05/09/17 12:37; Admin Dose 2 MG; Start 04/15/17 at 13:00 Nystatin (Nystatin Powder) 1 applic PRN TOP Last administered on 04/25/17 18: 06; Admin Dose 1 APPLIC; Start 04/16/17 at 16:30 Acetaminophen (Tylenol Tab) 650 mg Q6H PRN PO PAIN AND OR ELEVATED TEMP Last administered on 04/20/17 22:42; Admin Dose 650 MG; Start 04/20/17 at 22:00 Lactobacillus Acidophilus 1 each 1 each BID PO Last administered on 05/09/17 08:40; Admin Dose 1 EACH; Start 04/21/17 at 21:00 Total Parenteral Nutrition 1,000 ml @ 155 mls/hr 21 IV Last administered on 21:10; Admin Dose 155 MLS/HR; Start 05/07/17 at 21:00 Total Parenteral Nutrition (Tpn) 1,000 ml @ 155 mls/hr 04 IV Last administered on 05/09/17 04:47; Admin Dose 155 MLS/HR; Start 05/08/17 at 04:00 Apixaban (Eliquis) 10 mg BID PO Last administered on 05/09/17 08:41; Admin Dose 10 MG; Start 05/08/17 at 21:00; Stop 05/15/17 at 09:01 Apixaban (Eliquis) 5 mg BID PO ; Start 05/15/17 at 21:00 MARGOT WOMACK MD May 09, 2017 20:25
[2017-05-09] MEDS: INSULIN GLARGINE [LANtus] 3 ML PEN SC SCH (20:30)
[2017-05-10 01:24] VITALS: BP 102/59; RESP 16
[2017-05-10] MEDS: ACCUCHECK AT 2AM (Patients on SS coverage) XX SCH (02:00)
[2017-05-10] MEDS: TPN 1,000 ML IV SCH ×2 (03:28→21:00)
[2017-05-10 05:30] LABS: BASOPHILS % 0.3 % (0.0-2.0); EOSINOPHILS # 0.2 10^3/ul (0.0-0.5); HEMATOCRIT 29.9 % (42.0-52.0); HEMOGLOBIN 9.8 g/dl (14.0-18.0); LYMPHOCYTES # 1.8 10^3/ul (0.8-2.9); MEAN CORPUSCULAR HEMOGLOBIN 27.9 pg (29.0-33.0); MEAN CORPUSCULAR HGB CONC 32.8 g/dl (32.0-37.0); MEAN CORPUSCULAR VOLUME 85.2 fl (82.0-101.0); MEAN PLATELET VOLUME 9.3 fl (7.4-10.4); MONOCYTE # 0.7 10^3/ul (0.3-0.9); MONOCYTES % 7.4 % (0.0-11.0); NEUTROPHIL # 6.6 10^3/ul (1.6-7.5); NEUTROPHILS % 70.9 % (39.0-77.0); PLATELET COUNT 317 10^3/UL (140-415); RED BLOOD COUNT 3.51 10^6/ul (4.70-6.10); RED CELL DISTRIBUTION WIDTH 14.8 % (11.5-14.5); WHITE BLOOD COUNT 9.4 10^3/ul (4.8-10.8)
[2017-05-10 06:00] LABS: MAGNESIUM 2.3 mg/dl (1.7-2.5); PHOSPHORUS 4.2 mg/dl (2.5-4.9)
[2017-05-10 06:03] LABS: CALCIUM 9.5 mg/dl (8.4-10.2); CREATININE 1.79 mg/dl (0.61-1.24); POTASSIUM 4.2 mmol/L (3.5-5.1)
[2017-05-10] MEDS: Insulin NOVOLOG SS MODERATE Algorithm (SS with meals and bedtime) SC SCH ×4 (08:54→21:00)
[2017-05-10] MEDS: L ACIDOPHIL/B LACTIS/B LONGUM CAPSULE PO SCH ×2 (08:55→21:00)
[2017-05-10] MEDS: ASCORBIC ACID 500 MG TAB PO SCH (08:56)
[2017-05-10] MEDS: APIXABAN 5 MG TABLET PO SCH ×2 (08:56→21:09)
[2017-05-10] MEDS: ZINC SULFATE 220 MG CAP PO SCH (08:56)
[2017-05-10] MEDS: LOPERAMIDE 2 MG CAP PO SCH ×3 (08:56→21:09)
[2017-05-10] MEDS: ONDANSETRON 4 MG INJ IV PRN (10:21)
--- NOTE | 2017-05-10 11:03 | PN ---
Date/Time of Note Date/Time of Note DATE: 05/10/17 TIME: 10:59 Assessment/Plan Lines/Catheters IV Catheter Type (from [facility]): PICC Line Tomas in Place (from [facility]): No Assessment/Plan Chief Complaint/Hosp Course 1. Multiple ostomies and ileal conduit: all ostomies pink and moist; s/p multiple Perforated viscous w small bowel proximal looped ostomy (minimum 6 month wait prior to considering attempting abdominal re-exploration) -continue ostomy care -continue oral feed and supplements -oral diet as tolerated, encourage supplements -oob/ambulate -TPN-cyclic tpn per nursing education consultant recs 2. UTI (polymicrobial, complicated)pink with mucous urine, cultures noted; s/p abx -frequent bladder emptying/cath care -urology 3. Malnutrition: tolerating solid diet w tpn. Taking some supplements; weight gain; improved appetite -continue tpn; started on cyclic tpn per nursing education consultant recs -vitamins, probiotics, and nutritional supplements- started nutrifiber -encourage supplements -hopefully wean off tpn -antimotility agent; oral narcotics 4. MANA: cr improving -judicious fluids -limit nephrotoxic meds -per renal 5. Bladder cancer: s/p chemo/radiation, s/p cystoprostatectomy with urinary diversion -per oncology/urology 6. Normocytic hypochromic anemia: no overt bleed noted -monitor -transfuse as needed -further workup per medical team 7. Pelvic pain:on fentanyl patch and po narcotics; improved -pain management 8. Hematuria: improving -medical management Thank you. Patient seen and examined in collaboration with Dr. Bang Ross Problems: Subjective 24 Hr Interval Summary Feels well. Min pelvic pain. Hematuria improved. Ileostomy output thickened. Cr including to improve. No fevers, chills, sob, congested cough, cp, palpitations , craig, dizziness, n/v/d/dysuria. Exam/Review of Systems Vital Signs Vitals Vital Signs Date Time Temp Pulse Resp B/P Pulse Ox O2 Delivery O2 Flow Rate FiO2 05/10/17 01:24 98.6 68 16 102/59 99 05/08/17 20:04 Room Air Intake and Output 05/09/17 05/09/17 05/10/17 15:00 23:00 07:00 Intake Total 1000 ml 940 ml 1510 ml Output Total 3600 ml 2100 ml Balance 1000 ml -2660 ml -590 ml Exam Free Text/Dictation Constitutional: alert, oriented Psych: nl mood Head: atraumatic, normocephalic Eyes: nl lids, nl sclera ENMT: mucosa pink and moist, nl nasal mucosa & septum Neck: non-tender, supple Respiratory: normal air movement Cardiovascular: nl pulses, regular rate and rhythm Gastrointestinal: min-tender, other (ileostomy (output thickened), colostomy, ileal conduit -all ostomies pink and moist), soft, Genitourinary - Male: nl penis, nl scrotum; ileal conduit with clear/light pink urine Musculoskeletal: nl extremities to inspection, nl gait and stance Extremities: normal pulses, No edema Neurological: nl mental status, nl speech Skin: nl turgor, rash or lesions; lower abdomen wound healed Results Result Diagram: 05/10/17 0445 05/10/17 0445 IFTIKHAR ROBERTSON NP May 10, 2017 11:03
[2017-05-10] MEDS ORDERED: APIX5TAB PO (11:18)
[2017-05-10 11:32] VITALS: BP 112/61; RESP 19
--- NOTE | 2017-05-10 14:02 | CONS ---
Date/Time of Note Date/Time of Note DATE: 05/10/17 TIME: 14:01 Assessment/Plan Assessment/Plan Chief Complaint/Hosp Course SUBJECTIVE: No acute changes overnight, alert, denies pain, looks comfortable, no fevers PHYSICAL EXAMINATION: GENERAL: This is a cachectic, chronically ill-appearing, elderly, [place] man who is awake, in no distress. HEENT: Head atraumatic, normocephalic. Sclerae anicteric. Buccal mucosa dry. NECK: Supple. CHEST: Rise symmetrical. Breath sounds clear. HEART: S1, S2. ABDOMEN: Soft. Bowel tones present. ASSESSMENT: 1. S/p recurrent urinary tract infection. 2. History of bladder and prostate cancer, status post chemoradiation, cystoprostatectomy with urinary diversion and ileostomy conduit. 3. History of perforated viscus repair. 4. Acute renal failure. 5. Cachexia. 6. History of obstructive uropathy, status post bilateral JJ stent placement. PLAN: Clinically unchanged, off abx, pending dc plan. DW staff Problems: Consultation Date/Type/Reason Admit Date/Time Mar 30, 2017 at 02:24 Initial Consult Date 04/01/17 Type of Consultation: id Referring Provider: ALLISON HAYWARD Exam/Review of Systems Vital Signs Vitals Vital Signs Date Time Temp Pulse Resp B/P Pulse Ox O2 Delivery O2 Flow Rate FiO2 05/10/17 11:32 98.2 71 19 112/61 98 05/08/17 20:04 Room Air Intake and Output 05/09/17 05/09/17 05/10/17 15:00 23:00 07:00 Intake Total 1000 ml 940 ml 1510 ml Output Total 3600 ml 2100 ml Balance 1000 ml -2660 ml -590 ml Results Result Diagram: 05/10/17 0445 05/10/17 0445 Results 24 hrs Laboratory Tests Test 05/09/17 18:00 05/09/17 20:26 05/10/17 02:04 05/10/17 04:45 Bedside Glucose 142 125 144 White Blood Count 9.4 # Red Blood Count 3.51 L Hemoglobin 9.8 L Hematocrit 29.9 L Mean Corpuscular Volume 85.2 Mean Corpuscular Hemoglobin 27.9 L Mean Corpuscular Hemoglobin Concent 32.8 Red Cell Distribution Width 14.8 H Platelet Count 317 Mean Platelet Volume 9.3 Neutrophils % 70.9 Lymphocytes % 19.0 Monocytes % 7.4 Eosinophils % 2.0 Basophils % 0.3 Nucleated Red Blood Cells % 0.0 Neutrophils # 6.6 Lymphocytes # 1.8 Monocytes # 0.7 Eosinophils # 0.2 Basophils # 0.0 Nucleated Red Blood Cells # 0.0 Sodium Level 138 Potassium Level 4.2 Chloride Level 99 Carbon Dioxide Level 30 Anion Gap 13 Blood Urea Nitrogen 75 H Creatinine 1.79 H Glucose Level 147 Calcium Level 9.5 Phosphorus Level 4.2 Magnesium Level 2.3 Test 05/10/17 08:54 05/10/17 12:42 Bedside Glucose 140 105 Medications Medications Current Medications Ondansetron HCl (Zofran Inj) 4 mg Q6H PRN IV NAUSEA AND/OR VOMITING Last administered on 05/10/17 10:21; Admin Dose 4 MG; Start 03/30/17 at 03:30 Oxycodone/ Acetaminophen (Percocet (5/ 325)) 1 tab Q4H PRN PO PAIN Last administered on 05/09/17 20:29; Admin Dose 1 TAB; Start 03/30/17 at 06:00 Insulin Glargine (Lantus) 10 unit HS SC Last administered on 05/09/17 20:30; Admin Dose 10 UNIT; Start 04/01/17 at 21:00 Miscellaneous Information 1 ea NOTE XX ; Start 03/31/17 at 21:00 Glucose (Glutose) 15 gm Q15M PRN PO DECREASED GLUCOSE; Start 03/31/17 at 21:00 Glucose (Glutose) 22.5 gm Q15M PRN PO DECREASED GLUCOSE; Start 03/31/17 at 21: 00 Dextrose (D50w Syringe) 25 ml Q15M PRN IV DECREASED GLUCOSE; Start 03/31/17 at 21:00 Dextrose (D50w Syringe) 50 ml Q15M PRN IV DECREASED GLUCOSE; Start 03/31/17 at 21:00 Glucagon (Glucagen) 1 mg Q15M PRN IM DECREASED GLUCOSE; Start 03/31/17 at 21: 00 Glucose (Glutose) 15 gm Q15M PRN BUCCAL DECREASED GLUCOSE; Start 03/31/17 at 21:00 Diagnostic Test (Pha) (Accu-Chek) 1 ea 02 XX Last administered on 05/07/17 02: 19; Admin Dose 1 EA; Start 04/06/17 at 02:00 Ascorbic Acid (Vitamin C) 500 mg DAILY PO Last administered on 05/10/17 08:56 ; Admin Dose 500 MG; Start 04/11/17 at 09:00 Zinc Sulfate (Zinc Sulfate) 220 mg DAILY PO Last administered on 05/10/17 08: 56; Admin Dose 220 MG; Start 04/11/17 at 09:00 Fentanyl (Duragesic 25 Mcg/Hr Patch) 1 patch Q3D TRANSDERM Last administered on 05/08/17 18:44; Admin Dose 1 PATCH; Start 04/11/17 at 17:00 Loperamide HCl (Imodium Cap) 2 mg TID PO Last administered on 05/10/17 13:10; Admin Dose 2 MG; Start 04/15/17 at 13:00 Nystatin (Nystatin Powder) 1 applic PRN TOP Last administered on 04/25/17 18: 06; Admin Dose 1 APPLIC; Start 04/16/17 at 16:30 Acetaminophen (Tylenol Tab) 650 mg Q6H PRN PO PAIN AND OR ELEVATED TEMP Last administered on 04/20/17 22:42; Admin Dose 650 MG; Start 04/20/17 at 22:00 Lactobacillus Acidophilus 1 each 1 each BID PO Last administered on 05/10/17 08:55; Admin Dose 1 EACH; Start 04/21/17 at 21:00 Total Parenteral Nutrition 1,000 ml @ 155 mls/hr 21 IV Last administered on 20:33; Admin Dose 155 MLS/HR; Start 05/07/17 at 21:00 Total Parenteral Nutrition (Tpn) 1,000 ml @ 155 mls/hr 04 IV Last administered on 05/10/17 03:28; Admin Dose 155 MLS/HR; Start 05/08/17 at 04:00 Apixaban (Eliquis) 10 mg BID PO Last administered on 05/10/17 08:56; Admin Dose 10 MG; Start 05/08/17 at 21:00; Stop 05/15/17 at 09:01 Apixaban (Eliquis) 5 mg BID PO ; Start 05/15/17 at 21:00 KING MARQUES NP May 10, 2017 14:02
[2017-05-10 15:30] VITALS: BP 126/59; RESP 19
[2017-05-10] MEDS: OXYCODONE/ACETAMINOPHEN (5/325) TAB PO PRN (17:34)
--- NOTE | 2017-05-10 17:40 | PN ---
Date/Time of Note Date/Time of Note DATE: 05/10/17 TIME: 17:40 Assessment/Plan Lines/Catheters IV Catheter Type (from [facility]): PICC Line Tomas in Place (from [facility]): No Exam/Review of Systems Vital Signs Vitals Vital Signs Date Time Temp Pulse Resp B/P Pulse Ox O2 Delivery O2 Flow Rate FiO2 05/10/17 15:30 98.3 69 19 126/59 98 05/08/17 20:04 Room Air Intake and Output 05/09/17 05/09/17 05/10/17 15:00 23:00 07:00 Intake Total 1000 ml 940 ml 1510 ml Output Total 3600 ml 2100 ml Balance 1000 ml -2660 ml -590 ml Results Result Diagram: 05/10/17 0445 05/10/17 0445 MAYRA ESCOBAR MD May 10, 2017 17:40
[2017-05-10 19:52] VITALS: BP 102/62; RESP 16
--- NOTE | 2017-05-10 20:53 | CONS ---
Date/Time of Note Date/Time of Note DATE: 05/10/17 TIME: 20:52 Assessment/Plan Assessment/Plan Additional Assessment/Plan 1. acute kidney injury Non oliguric .2/2 ATN+ prerenal azotemia 2. H/o ESBL UTI 3.history of bladder cancer s/p TURBT, chemotherapy/radiation, urethral damage, chemo/radiation induced urinary and fecal incontinence. He underwent cystoprostatectomy with urinary diversion, ileal conduit, colonic diversion for fistula on last admission 4. Anemia of Chronic disease 5. Severe protein calorie malnutrition Plan: - IV ertapenem 1 gram IV daily , Cr improved to 1.79 from 2.10, K and other electrolytes stable - on TPN -will continue to follow up Consultation Date/Type/Reason Admit Date/Time Mar 30, 2017 at 02:24 Initial Consult Date 03/30/17 Type of Consultation: NEPHROLOGY Referring Provider: ALLISON HAYWARD 24 HR Interval Summary Free Text/Dictation Cr improved to 1.70 from 2.1, BP stable,a febrile Exam/Review of Systems Vital Signs Vitals Vital Signs Date Time Temp Pulse Resp B/P Pulse Ox O2 Delivery O2 Flow Rate FiO2 05/10/17 19:52 99.0 79 16 102/62 97 05/08/17 20:04 Room Air Intake and Output 05/09/17 05/09/17 05/10/17 15:00 23:00 07:00 Intake Total 1000 ml 940 ml 1510 ml Output Total 3600 ml 2100 ml Balance 1000 ml -2660 ml -590 ml Exam GENERAL: This is a cachectic, chronically ill-appearing, elderly, [place] man who is awake, in no distress. HEENT: Head atraumatic, normocephalic. Sclerae anicteric. Buccal mucosa dry. NECK: Supple. CHEST: Rise symmetrical. Breath sounds clear. HEART: S1, S2. ABDOMEN: Soft. Bowel tones present. Results Result Diagram: 05/10/17 0445 05/10/17 0445 Results 24 hrs Laboratory Tests Test 05/10/17 02:04 05/10/17 04:45 05/10/17 08:54 05/10/17 12:42 Bedside Glucose 144 140 105 White Blood Count 9.4 # Red Blood Count 3.51 L Hemoglobin 9.8 L Hematocrit 29.9 L Mean Corpuscular Volume 85.2 Mean Corpuscular Hemoglobin 27.9 L Mean Corpuscular Hemoglobin Concent 32.8 Red Cell Distribution Width 14.8 H Platelet Count 317 Mean Platelet Volume 9.3 Neutrophils % 70.9 Lymphocytes % 19.0 Monocytes % 7.4 Eosinophils % 2.0 Basophils % 0.3 Nucleated Red Blood Cells % 0.0 Neutrophils # 6.6 Lymphocytes # 1.8 Monocytes # 0.7 Eosinophils # 0.2 Basophils # 0.0 Nucleated Red Blood Cells # 0.0 Sodium Level 138 Potassium Level 4.2 Chloride Level 99 Carbon Dioxide Level 30 Anion Gap 13 Blood Urea Nitrogen 75 H Creatinine 1.79 H Glucose Level 147 Calcium Level 9.5 Phosphorus Level 4.2 Magnesium Level 2.3 Test 05/10/17 17:33 Bedside Glucose 104 Medications Medications Current Medications Ondansetron HCl (Zofran Inj) 4 mg Q6H PRN IV NAUSEA AND/OR VOMITING Last administered on 05/10/17 10:21; Admin Dose 4 MG; Start 03/30/17 at 03:30 Oxycodone/ Acetaminophen (Percocet (5/ 325)) 1 tab Q4H PRN PO PAIN Last administered on 05/10/17 17:34; Admin Dose 1 TAB; Start 03/30/17 at 06:00 Insulin Glargine (Lantus) 10 unit HS SC Last administered on 05/09/17 20:30; Admin Dose 10 UNIT; Start 04/01/17 at 21:00 Miscellaneous Information 1 ea NOTE XX ; Start 03/31/17 at 21:00 Glucose (Glutose) 15 gm Q15M PRN PO DECREASED GLUCOSE; Start 03/31/17 at 21:00 Glucose (Glutose) 22.5 gm Q15M PRN PO DECREASED GLUCOSE; Start 03/31/17 at 21: 00 Dextrose (D50w Syringe) 25 ml Q15M PRN IV DECREASED GLUCOSE; Start 03/31/17 at 21:00 Dextrose (D50w Syringe) 50 ml Q15M PRN IV DECREASED GLUCOSE; Start 03/31/17 at 21:00 Glucagon (Glucagen) 1 mg Q15M PRN IM DECREASED GLUCOSE; Start 03/31/17 at 21: 00 Glucose (Glutose) 15 gm Q15M PRN BUCCAL DECREASED GLUCOSE; Start 03/31/17 at 21:00 Diagnostic Test (Pha) (Accu-Chek) 1 ea 02 XX Last administered on 05/07/17 02: 19; Admin Dose 1 EA; Start 04/06/17 at 02:00 Ascorbic Acid (Vitamin C) 500 mg DAILY PO Last administered on 05/10/17 08:56 ; Admin Dose 500 MG; Start 04/11/17 at 09:00 Zinc Sulfate (Zinc Sulfate) 220 mg DAILY PO Last administered on 05/10/17 08: 56; Admin Dose 220 MG; Start 04/11/17 at 09:00 Fentanyl (Duragesic 25 Mcg/Hr Patch) 1 patch Q3D TRANSDERM Last administered on 05/08/17 18:44; Admin Dose 1 PATCH; Start 04/11/17 at 17:00 Loperamide HCl (Imodium Cap) 2 mg TID PO Last administered on 05/10/17 13:10; Admin Dose 2 MG; Start 04/15/17 at 13:00 Nystatin (Nystatin Powder) 1 applic PRN TOP Last administered on 04/25/17 18: 06; Admin Dose 1 APPLIC; Start 04/16/17 at 16:30 Acetaminophen (Tylenol Tab) 650 mg Q6H PRN PO PAIN AND OR ELEVATED TEMP Last administered on 04/20/17 22:42; Admin Dose 650 MG; Start 04/20/17 at 22:00 Lactobacillus Acidophilus 1 each 1 each BID PO Last administered on 05/10/17 08:55; Admin Dose 1 EACH; Start 04/21/17 at 21:00 Total Parenteral Nutrition 1,000 ml @ 155 mls/hr 21 IV Last administered on 20:33; Admin Dose 155 MLS/HR; Start 05/07/17 at 21:00 Total Parenteral Nutrition (Tpn) 1,000 ml @ 155 mls/hr 04 IV Last administered on 05/10/17 03:28; Admin Dose 155 MLS/HR; Start 05/08/17 at 04:00 Apixaban (Eliquis) 10 mg BID PO Last administered on 05/10/17 08:56; Admin Dose 10 MG; Start 05/08/17 at 21:00; Stop 05/15/17 at 09:01 Apixaban (Eliquis) 5 mg BID PO ; Start 05/15/17 at 21:00 MARGOT WOMACK MD 4, 2017 20:53
[2017-05-10] MEDS: INSULIN GLARGINE [LANtus] 3 ML PEN SC SCH (21:00)
--- NOTE | 2017-05-12 07:45 | CONS ---
DATE OF ADMISSION: 03/30/2017 DATE OF CONSULTATION: 05/07/2017 VASCULAR SURGERY CONSULTATION Dear Doctors: Mr. Wilson is a 66-year-old gentleman who had a recent history of bladder cancer in which he underwent chemoradiation with urethral damage and developed urinary and fecal incontinence with a perforated viscus, status post repair and pelvic abscess and drainage. Further, the patient underw ent a cystoprostatectomy with urinary diversion and ileal conduit. Further, the patient had a colon ic diversion for fistula and was transferred for evaluation of weakness, weight loss and urinary tra ct infection. At the moment, the patient denies shortness of breath, chest pain, nausea, vomiting, fever or chills. During his hospitalization course at [facility], was identified the patient having right lower extremity deep vein thrombosis that is nonocclusive. Vascular surge ry consultation was obtained for further evaluation and management. At the moment, the patient den ies lower extremity claudication or rest pain-like symptoms. Denies any swelling. Speaking with th e patient, he mentions that over the past 4 to 5 months he has had these episodes of swelling that w ill be intermittent and on and off. He has not had any significant swelling over the past 2 weeks. Upon reviewing his ultrasound, it seems that it is unclear about the occurrence of this nonocclusiv e thrombus and upon evaluation by myself it seems that this to be more chronic versus subacute rathe r than acute episode. REVIEW OF SYSTEMS: A 14-point review performed and negative except what is mentioned in the HPI. PAST MEDICAL HISTORY: Entails history of UTI, ESBL, bladder cancer, abdominal abscess, bladder canc er under chemo and radiation. PAST SURGICAL HISTORY: As mentioned above regarding his cancer-related issues and a complicated cou rse with cystoprostatectomy with urinary diversion, ileal conduit, colonic diversion for fistula and status post repair from a perforated viscus with pelvic abscess and status post drainage. FAMILY HISTORY: Positive for coronary artery disease. SOCIAL HISTORY: Denies tobacco, alcohol or illicit drug use currently. PHYSICAL EXAMINATION: GENERAL: Alert and oriented x3, no apparent distress. HEENT: Normocephalic, atraumatic. Temporal wasting. Mucosa moist. NECK: Supple. No carotid bruit. PULMONARY: Clear to auscultation bilaterally. No crackles. CARDIOVASCULAR: S1, S2 present. No murmurs. ABDOMEN: Soft, ileal conduit, viable fistula, conduit viable. Bowel sounds positive. LOWER EXTREMITIES: Right lower extremity palpable femoral pulse, faint pedal pulse. Motor, sensory intact. Cap refill 2 to 3 seconds. No edema. Left lower extremity palpable femoral pulse, faint pedal pulse. Motor, sensory intact. Cap refill 2 to 3 seconds. ASSESSMENT AND PLAN: Right lower extremity deep vein thrombosis: It seems the patient's recurrence of DVT seems to be more chronic in nature and not necessarily acute. At the moment, would recommen d for the patient to undergo a course of anticoagulation as it is difficult to ascertain the occurre nce of the actual DVT, but there are findings of subacute upon his evaluation of ultrasound. Would recommend for now for the patient to have anticoagulation on board for about 6 months' time and will reevaluate the patient's status with our oncology/hematology colleagues as we follow his resolution from his current cancer management and treatment. Optimize vascular status (BP meds, diet, nutrition, exercise, sugar control, antiplatelets and antic oagulation). We will plan to follow up with the patient as an outpatient in the next 2 to 3 weeks and obtain a ne w ultrasound within a month to follow his progress. Elevate right lower extremity if there are any signs of swelling or discomfort. Discussed findings, plan and management with the patient and the at the bedside and they fully understand with a certified pharmacy technologist. Thank you for allowing us to partake in the care of your patient. Please call with any questions. Dictated By: MAYRA GUZMAN/MADHURI Conf#: [id number] DID#: [id number]
[2017-05-15] MEDS ORDERED: APIXABAN 5 MG TABLET PO SCH (21:00)
== END 2017-05-10 22:20 | disposition home health service (06) | DRG 682 ==
LOC: MS1 02:24
PROVIDERS: ADMIT Internal Medicine; ATTEND Internal Medicine
DX: N17.0 Acute kidney failure with tubular necrosis (principal); E43 Unspecified severe protein-calorie malnutrition; K63.2 Fistula of intestine; R65.10 Systemic inflammatory response syndrome (SIRS) of non-infectious origin without acute organ dysfunction; I82.411 Acute embolism and thrombosis of right femoral vein; K91.2 Postsurgical malabsorption, not elsewhere classified; R64 Cachexia; N13.30 Unspecified hydronephrosis; N30.41 Irradiation cystitis with hematuria; E83.42 Hypomagnesemia; Z90.6 Acquired absence of other parts of urinary tract; Z68.1 Body mass index [BMI] 19.9 or less, adult; M47.9 Spondylosis, unspecified; D63.8 Anemia in other chronic diseases classified elsewhere; K62.7 Radiation proctitis; B95.2 Enterococcus as the cause of diseases classified elsewhere; B96.20 Unspecified Escherichia coli [E. coli] as the cause of diseases classified elsewhere; D64.9 Anemia, unspecified; R10.2 Pelvic and perineal pain; K60.4 Rectal fistula; K66.0 Peritoneal adhesions (postprocedural) (postinfection); Z85.46 Personal history of malignant neoplasm of prostate; Z85.51 Personal history of malignant neoplasm of bladder; Z92.3 Personal history of irradiation; Z93.2 Ileostomy status; Z92.21 Personal history of antineoplastic chemotherapy; Z87.440 Personal history of urinary (tract) infections
CPT/HCPCS: 71010; 74176; 80048; 80053; 80076; 81001; 82962; 83036; 83735; 84100; 84134; 84478; 85025; 85610; 85730; 87040; 87081; 87086; 90686; 93970; 97110; 97116; 97162; 97530; J1335; J1644; J1815; J2185; J2270; J2405; J2997; J7030; J7042; J7070

== ENCOUNTER 2017-05-21 21:40 | Inpatient (IN) | END 2017-06-16 18:20 | DRG 853 ==

== ENCOUNTER 2017-06-25 21:10 | Inpatient (IN) | END 2017-07-07 20:04 | DRG 871 ==

== ENCOUNTER 2017-07-10 00:12 | Inpatient (IN) | END 2017-08-20 19:25 | DRG 871 ==

== ENCOUNTER 2017-08-31 22:49 | Inpatient (IN) | END 2017-09-15 20:08 | disposition home health service (06) | DRG 683 ==

== ENCOUNTER 2017-10-11 14:59 | Inpatient (IN) | END 2017-11-28 17:40 | disposition home health service (06) | DRG 853 ==

== ENCOUNTER 2017-12-09 16:48 | Inpatient (IN) | END 2018-01-05 14:40 | disposition home health service (06) | DRG 871 ==

== ENCOUNTER 2018-01-12 08:18 | Inpatient (IN) | END 2018-01-29 22:30 | disposition home health service (06) | DRG 698 ==

== ENCOUNTER 2018-02-07 20:57 | Inpatient (IN) | END 2018-03-16 06:00 | disposition EXP | DRG 871 ==